=== PATIENT | female | born 1950 | race Caucasian/White ===

== ENCOUNTER → 2016-06-13 | Outpatient (CLI) | payer BC, OTHER ==
[~2016-06-13] MED LIST: /BACL20TA OR; /ESOM40CA OR; /FENT75PA TD; ADV250INH INH; ADVA230A INH; ALBU17IN INH; ALBU17IN2 IN; ALBUTEROL NEBS INH; AMBI10TA PO; AMLO5TAB2 PO; AMOX500T PO; ATIV0.5T3 PO; AUGM875T27 PO; AZIT500I PO; BACL10TA PO; BACL10TA2 PO; CEPACOL PO; CLARITIN D PO; DOXY100T16 PO; FLON0.05; FLUO40CA PO; FROV2.5T2 PO; FROVA PO; FURO20TA2 OR; GABA-283 PO; GABA300T OR; HYDR25TA7 PO; HYDR25TAB PO; HYDR50TA PO; KLOR1TAB65 PO; KLOR1TAB69 PO; KLOR8TAB OR; KLOR8TAB PO; LACT10SO8 OR; LEVA0.636 INH; LEVA31IN INH; LIDO1CRE2 EX; LISI-542 PO; MAGN64TASA PO; MONT10TA2 PO; MUCI600T34 PO; MUCINEX DM PO; NICO21DI4 TD; NITR2OI TOP; NORC7.5T PO; NORVASC PO; OXYC-208 PO; OXYC10TA12 OR; PANT40TA2 PO; PERC10TA17 PO; PERC5TAB8 OR; PERCOCET PO; POTA20TA2 OR; PRED10TA PO; PRED10TA2 PO; PRED1TAB32 PO; PRED5TA PO; PROC10TA PO; PROZ20CA OR; REST15CA PO; SENN8.6C PO; STRETAB4 PO; SUMA100T2 PO; VERA40TA2 PO; VITA500046 PO; ZOFR4TAB3 PO; ZOLP-189 PO; [UNRECOGNIZED DRUG - CODE] PO; oxygen
--- NOTE | 2016-06-13 22:06 | REP ---
Clinical: COPD. Comparison: 04/01/2015. Findings: The bilateral lung goff are well-aerated and without evidence for COPD. Chronic interstitial and postsurgical changes are appreciated with more pronounced findings at the right hilum as well as along the peripheral and basilar regions of the right lower lobe. No acute focal consolidation or mass lesion. No pleural effusion/reaction or pneumothorax. Mediastinum demonstrates stable atherosclerotic changes to the thoracic aorta and coronary arteries without cardiomegaly or pericardial effusion. No obvious adenopathy. Impression: Chronic-appearing postsurgical changes primarily noted in the right hilum and peripheral basilar regions of the right lower lobe similar to prior examination. No evidence for COPD, acute significant consolidation or mass lesion at the Signed by Sean Reese MD 06/13/2016 09:58 P
== END ==
LOC: M RAD 13:58
PROVIDERS: ATTEND Internal Medicine Pulmonary Disease
DX: J44.9 Chronic obstructive pulmonary disease, unspecified (principal)

== ENCOUNTER → 2016-08-17 | Outpatient (REF) | payer MEDICARE, OTHER, BC ==
[~2016-08-17] MED LIST changes: +KLOR1CAP PO
== END ==
LOC: M LAB REF 16:18
PROVIDERS: ATTEND Nurse Practitioner Women's Health
DX: R39.15 Urgency of urination (principal); R35.0 Frequency of micturition

== ENCOUNTER → 2016-08-22 | Outpatient (CLI) | payer MEDICARE, BC, OTHER ==
[~2016-08-22] MED LIST changes: -KLOR1CAP PO
--- NOTE | 2016-08-22 14:32 | REP ---
Clinical: Postmenopausal bleeding. Technique: Transabdominal pelvic ultrasound followed by transvaginal examination for better evaluation of the endometrium and adnexa. Findings: Bladder is normal and measures 12.7 x 7.0 x 9.5 cm. Heterogeneous anteverted uterus measures 4.9 x 3.0 x 2.7 cm. Endometrial complex is mildly thickened to 6.3 mm. However, no discrete uterine or endometrial abnormalities appreciated. Ovaries are not visualized. No pelvic fluid or obvious adnexal mass lesion. Impression: 1. Minimally thickened endometrial complex without obvious uterine or endometrial abnormality identified. 2. Ovaries not visualized. 3. No pelvic fluid or adnexal mass lesion appreciated. Signed by Sean Reese MD 08/22/2016 02:23 P
--- NOTE | 2016-08-22 14:40 | REPMRS ---
Patient History The patient states she had a clinical breast exam in July 2016. Digital Mammo Screening Bilat: August 22, 2016 - Exam #: [id number] Bilateral CC and MLO view(s) were taken. Technologist: Camelia Palmer, Technologist Prior study comparison: September 05, 2011, digital mammo diagnostic bilateral performed at [facility]. August 31, 2010, mammogram performed at [facility]. FINDINGS: There are scattered fibroglandular densities. There has been no change in the appearance of the mammogram from the prior studies. There is a mild amount of residual fibroglandular tissue which is fairly symmetric. There is no interval development of dominant mass, architectural distortion, or clustered microcalcification suggestive of malignancy. Scattered lymph nodes are seen in the bilateral axilla. There are scattered, small, benign calcifications of doubtful clinical significance. There are benign arterial calcifications noted. No significant changes when compared with prior studies. ASSESSMENT: BI-RADS/ACR category 2 mammogram. Benign finding(s). Recommendation Routine screening mammogram in 1 year (for women over age 40). This mammogram was interpreted with the aid of an FDA-approved computer-aided dectection system. A. Negative x-ray reports should not delay biopsy if a dominant or clinically suspicious mass is present. B. Four to eight percent of cancers are not identified by mammography. C. Adenosis and dense breast may obscure an underlying neoplasm. Electronically Signed By: Jaswinder Shah MD 08/22/16 [id number]
== END ==
LOC: M RAD 13:11
PROVIDERS: ATTEND Nurse Practitioner Women's Health
DX: N95.0 Postmenopausal bleeding (principal); Z12.31 Encounter for screening mammogram for malignant neoplasm of breast
CPT/HCPCS: 76830; 76856; G0202

== ENCOUNTER → 2016-08-30 | Outpatient (REF) | payer MEDICARE, OTHER ==
[~2016-08-30] MED LIST changes: +KLOR1CAP PO
[2016-08-30 19:13] LABS: PERCENT SATURATION 26.9 % (13.2-37.4)
[2016-08-30 20:33] LABS: MICROSCOPIC EXAM PERFORMED; RBC, URINE 0-1 /hpf (0-3); SQUAMOUS EPITHELIAL CELL URINE SMALL AMOUNT /hpf (SMALL AMT)
[2016-08-30 20:34] LABS: HYALINE CAST, URINE 0-1 /lpf (0-1); TRANSITIONAL EPI CELLS, URINE SMALL AMOUNT /hpf
[2016-08-30 20:35] LABS: BACTERIA, URINE NONE SEEN
== END ==
LOC: M LAB REF 17:30
PROVIDERS: ATTEND Internal Medicine Nephrology
DX: R31.9 Hematuria, unspecified (principal); D64.9 Anemia, unspecified

== ENCOUNTER → 2016-09-07 | Outpatient (CLI) | payer MEDICARE, BC, OTHER ==
--- NOTE | 2016-09-07 13:46 | REP ---
BLADDER ULTRASOUND: Real-time sonographic evaluation of the urinary bladder is performed. The bladder measures 9.2 x 9.2 x 6.1 cm for a total volume of 334 mL. There is no bladder mass or calculus. Postvoid residual is 37 mL, which is 11% of the original volume. IMPRESSION: Essentially unremarkable bladder ultrasound. Signed by Jose Morales MD 09/07/2016 02:29 P
== END ==
LOC: M RAD 10:07
PROVIDERS: ATTEND Internal Medicine Nephrology
DX: N18.2 Chronic kidney disease, stage 2 (mild) (principal)

== ENCOUNTER → 2016-09-15 | Outpatient (CLI) | payer MEDICARE, BC, OTHER ==
[2016-09-15 15:22] LABS: INR 0.82
[2016-09-15 15:24] LABS: MEAN CORPUSCULAR HEMOGLOBIN 30.5 pg (27.0-33.0); MEAN CORPUSCULAR HGB CONC 33.2 g/dl (32.0-36.5); WHITE BLOOD COUNT 11.2 K/mm3 (4.0-10.0)
--- NOTE | 2016-09-15 15:35 | REP ---
Chest two views HISTORY: Hypertension Comparison: 04/01/2015 There is elevation of the right hemidiaphragm. The lungs are clear. The heart is normal in size. The pulmonary vasculature is normal in appearance. The bony structure is intact. IMPRESSION: No acute disease. Signed by Bo Walsh MD 09/15/2016 03:26 P
[2016-09-15 15:50] LABS: ALBUMIN 3.9 GM/DL (3.2-5.2); ALBUMIN/GLOBULIN RATIO 1.11 (1.00-1.93); ALKALINE PHOSPHATASE 95 U/L (45-117); ALT/SGPT 28 U/L (12-78); ANION GAP 7 MEQ/L (8-16); AST/SGOT 15 U/L (15-37); BILIRUBIN,TOTAL 0.2 MG/DL (0.2-1.0); BLOOD UREA NITROGEN 11 MG/DL (7-18); CALCIUM LEVEL 9.3 MG/DL (8.8-10.2); CARBON DIOXIDE LEVEL 33 MEQ/L (21-32); CHLORIDE LEVEL 98 MEQ/L (98-107); CHOLESTEROL LEVEL 248 MG/DL (<200); CREATININE FOR GFR 0.69 MG/DL (0.55-1.02); GLOMERULAR FILTRATION RATE > 60.0 (>45); GLUCOSE, FASTING 91 MG/DL (80-110); POTASSIUM SERUM 3.7 MEQ/L (3.5-5.1); SODIUM LEVEL 138 MEQ/L (136-145); TOTAL PROTEIN 7.4 GM/DL (6.4-8.2); TRIGLYCERIDES LEVEL 157 MG/DL (<150)
--- NOTE | 2016-09-15 18:55 | ECGEPIP ---
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
== END ==
LOC: M LAB 14:56
PROVIDERS: ATTEND Family Medicine
DX: Z01.818 Encounter for other preprocedural examination (principal); I10 Essential (primary) hypertension; R73.01 Impaired fasting glucose; R79.1 Abnormal coagulation profile

== ENCOUNTER 2016-09-22 14:39 | Inpatient (IN) | payer MEDICARE, BC, OTHER ==
[~2016-09-22] VITALS: Ht 157.5 cm; Wt 108.2 kg
[2016-09-22] MEDS ORDERED: PRED10TA PO ×2 (14:48→19:24)
[2016-09-22] MEDS ORDERED: OXYGEN (14:48)
[2016-09-22] MEDS ORDERED: IPRATROPIUM 0.5MG/ALBUTEROL 2.5MG INH SOL UD 3ML (DUONEB)(J7620) NEB ONE (16:30)
[2016-09-22] MEDS ORDERED: methylPREDNISolone INJ 125 MG/2 ML VIAL (J2930) IV ONE (16:30)
[2016-09-22 17:27] LABS: BASO # 0.1 K/mm3 (0.0-0.2); BASO % 0.4 % (0.0-1.0); EOS % 0.2 % (0.0-3.0); LARGE UNSTAINED CELL # 0.1 K/mm3 (0.0-0.4); LARGE UNSTAINED CELL % 0.8 % (0.0-4.0); LYMPH # 1.4 K/mm3 (1.5-4.5); LYMPH % 7.6 % (24.0-44.0); MEAN CORPUSCULAR HEMOGLOBIN 30.6 pg (27.0-33.0); MEAN CORPUSCULAR HGB CONC 32.9 g/dl (32.0-36.5); MEAN CORPUSCULAR VOLUME 93.2 fl (80.0-96.0); MONO # 0.7 K/mm3 (0.0-0.8); MONO % 3.5 % (0.0-5.0); NEUTROPHILS # 16.5 K/mm3 (1.8-7.7); NEUTROPHILS % 87.6 % (36.0-66.0); PLATELET COUNT, AUTOMATED 381 k/mm3 (150-450); WHITE BLOOD COUNT 18.8 K/mm3 (4.0-10.0)
[2016-09-22 17:33] LABS: ANION GAP 14 MEQ/L (8-16); BLOOD UREA NITROGEN 34 MG/DL (7-18); CALCIUM LEVEL 8.8 MG/DL (8.8-10.2); CARBON DIOXIDE LEVEL 24 MEQ/L (21-32); CHLORIDE LEVEL 96 MEQ/L (98-107); CREATININE FOR GFR 2.42 MG/DL (0.55-1.02); GLOMERULAR FILTRATION RATE 21.4 (>45); GLUCOSE, FASTING 99 MG/DL (80-110); POTASSIUM SERUM 4.6 MEQ/L (3.5-5.1); SODIUM LEVEL 134 MEQ/L (136-145)
--- NOTE | 2016-09-22 18:02 | ED PDOC ---
Post-Departure Follow-Up AT THIS TIME, WENT TO PT'S ROOM, PT SITTING UPRIGHT ON EXAM BED, DIAPHORETIC AND SPOUSE STATED SHE WAS SLEEPING. PT USING ACCESSORY MUSCLES ON 2L NASAL CANNULA. ADVISED ELEVATED KIDNEY FUNCTIONS AND PT SEES DR. DIOP. CHECKED MEDITECH AND PT HAD NORMAL RENAL FUNCTIONS ON 09/15/16. SIGNIFICANTLY ELEVATED TODAY. SAWYER PELAEZ PA-C Sep 22, 2016 18:02
[2016-09-22] MEDS ORDERED: ADVA230A INH (19:24)
[2016-09-22] MEDS ORDERED: PERC10TA17 PO (19:24)
[2016-09-22 19:40] LABS: ABG BASE EXCESS -5.2 (-2.0-2.0); ABG HCO3 22.2 MEQ/L (22.0-26.0); ABG PARTIAL PRESSURE CO2 51.1 mmHg (35.0-45.0); ABG PARTIAL PRESSURE O2 73.3 mmHg (75.0-100.0); ABG STANDARD HCO3 20.1 MEQ/L (22.0-26.0); ABG TOTAL CO2 23.7 MEQ/L (23.0-31.0); ABG pH (ARTERIAL) 7.255 UNITS (7.350-7.450)
[2016-09-22] MEDS ORDERED: PANT40TA2 PO (20:07)
[2016-09-22 20:26] LABS: ALBUMIN 4.3 GM/DL (3.2-5.2); ALKALINE PHOSPHATASE 95 U/L (45-117); ALT/SGPT 30 U/L (12-78); AST/SGOT 22 U/L (15-37); BILIRUBIN,DIRECT < 0.1 MG/DL (0.0-0.2); BILIRUBIN,TOTAL 0.4 MG/DL (0.2-1.0); TOTAL PROTEIN 7.6 GM/DL (6.4-8.2)
[2016-09-22] MEDS: guaiFENesin ER 600 MG TAB PO SCH (21:00)
[2016-09-22] MEDS: GABAPENTIN 400 MG CAP PO SCH (21:00)
[2016-09-22] MEDS ORDERED: SODIUM CHLORIDE 0.9% 1000 ML IV ONE ×2 (21:15→21:30)
[2016-09-22] MEDS ORDERED: IPRATROPIUM 0.5MG/ALBUTEROL 2.5MG INH SOL UD 3ML (DUONEB)(J7620) NEB PRN (21:15)
[2016-09-22] MEDS ORDERED: ALBUTEROL SULFATE 2.5 MG/0.5 ML INH NEB SOLN INH PRN (21:30)
[2016-09-22] MEDS ORDERED: NS 500 ML IV ONE (21:30)
[2016-09-22] MEDS ORDERED: methylPREDNISolone INJ 125 MG/2 ML VIAL (J2930) IV SCH (21:30)
[2016-09-22] MEDS ORDERED: NS 1,000 ML IV SCH (21:30)
--- NOTE | 2016-09-22 22:10 | HPEPDOC ---
General Date of Admission Attending Physician: MARGUERITE SPANGLER MD Chief Complaint The patient is a 66-year-old female admitted with a reason for visit of SOB. Source: Patient Exam Limitations: No limitations Timing/Duration: Day(s) (2) Severity: Severe History of Present Illness Leatha Zimmerman is a 66 year old female with a history of lung cancer, COPD, HTN, PNA, nocturnal oxygen use at home, rib fractures and spinal fusions who presents with 2 days of shortness of breath. She is accompanied by her Freddie and he was present to aid in taking the history. The shortness of breath has been increasing in severity and that is why she had to come to the ER. She denies any chest pain or palpitations. Her states that she has been sick for about 2 weeks, and she has become confused at times. She coughs up yellow sputum every once in a while. She also complains of chronic left flank pain that has been increasing in severity over the past couple weeks. The pain is where she previously broke her ribs, she believes that this may be diaphragm pain. She also states that she has been having a hard time urinating with a feeling of needing to go but she can't. She denies any blood or pain when she urinates. She has been having fevers and night sweats for a long time now which other providers have attributed to menopause. She denies chills, nausea, and vomiting, but states that she has intermittent bouts of diarrhea after about 3 days of constipation. 2 weeks ago, she noticed vaginal spotting and has an appointment here at [facility] on Oct 04 2016 to investigate this matter further. She is laying down in moderate distress and sweaty, but alert and oriented. Home Medications Scheduled (Klor-Con Sprinkle) 8 Meq Cap, 16 MEQ PO DAILY, (Reported) Amlodipine Besylate (Amlodipine Besylate) 5 Mg Tab, 5 MG PO DAILY, (Reported) Baclofen (Baclofen) 10 Mg Tab, 10 MG PO TID, (Reported) Cholecalciferol (Vitamin D) 5,000 Unit Tab, 5,000 UNIT PO DAILY, (Reported) Fluoxetine Hcl (Fluoxetine HCl) 40 Mg Cap, 40 MG PO DAILY, (Reported) Gabapentin (Gabapentin) 400 Mg Cap, 400 MG PO TID, (Reported) Guaifenesin (Mucinex) 600 Mg Tab, 600 MG PO BID, (Reported) Hydrochlorothiazide (Hydrochlorothiazide) 25 Mg Tab, 25 MG PO DAILY, (Reported) Lisinopril (Lisinopril) 5 Mg Tab, 5 MG PO QHS, (Reported) Pantoprazole Sodium (Pantoprazole Sodium) 40 Mg Tab, 40 MG PO DAILY, (Reported) Salmeterol/Fluticasone (Advair Hfa 230-21 Mcg/Act) 1 Aer Aer, 1 PUFF INH BID, ( Reported) Zolpidem Tartrate (Ambien) 10 Mg Tab, 10 MG PO QHS, (Reported) Scheduled PRN Albuterol Sulfate (Ventolin Hfa) 200 Puff/8 Gm Aers, 2 PUFF INH Q4H PRN for SHORTNESS OF BREATH, (Reported) Oxycodone/Acetaminophen (Percocet 10-325 mg) 1 Tab Tab, 1 TAB PO TID PRN for PAIN, (Reported) Prednisone (Prednisone) 10 Mg Tab, 10 MG PO DAILYPRN PRN for SHORTNESS OF BREATH , (Reported) Sumatriptan Succinate (Sumatriptan Succinate) 100 Mg Tab, 100 MG PO PRN PRN for MIGRAINE, (Reported) Allergies Coded Allergies: Benzodiazepines (Verified Adverse Reaction, Intermediate, DELIRIUM, ) Past Medical History Medical History Lung cancer status post resection 2009 HTN Depression COPD Seasonal allergies Migraines PNA Closed rib fractures Chiari malformation (1) Surgical History Spinal fusion Right upper lobectomy Carpal tunnel repair Cholecystectomy Disc surgery Chiari malformation decompression Family History Mother of CHF Father of heart and liver disease Social History * Smoker: former Smoker (60 pack years) Alcohol: occationally Drugs: denies Patient lives with Review of Symptoms Constitutional: Reports: Fever, Night Sweats, Fatigue, Denies: Chills Eyes: Reports: Vision change (chronic changes) ENT: Reports: Head Aches Skin: Denies: Rash, Lesions Pulmonary: Reports: Dyspnea, Cough Cardiovascular: Denies: Chest Pain, Palpitations, Edema Gastrointestinal: Reports: Abdominal Pain (Chronic diaphragm pain on right), Diarrhea, Constipation, Denies: Nausea, Vomiting Genitourinary: Reports: Dysuria Musculoskeletal: Reports: Neck Pain, Back Pain Neurological: Denies: Weakness, Numbness, Change in speech Psych: Reports: Mood Normal Physical Examination General Exam: Positive: Alert, Cooperative, Moderate Distress Eye Exam: Positive: PERRLA, EOMI ENT Exam: Positive: Atraumatic Chest Exam: Positive: Wheezing (Bilateral upper lobes) Heart Exam: Positive: Rate Normal, Negative: Gallops, Murmurs, Rubs Abdomen Exam: Positive: Normal bowel sounds, Negative: Tenderness (but she does feel uncomfortable pressure in the lower abdomen upon palpation.) Extremity Exam: Negative: Cyanosis, Edema, Tenderness Skin Exam: Positive: Other skin issue (diaphoretic) Neuro Exam: Positive: Normal Speech Psych Exam: Positive: Mental status NL, Anxiety Vital Signs Vital Signs Date Time Temp Pulse Resp B/P (MAP) Pulse Ox O2 Delivery O2 Flow Rate FiO2 09/22/16 19:21 93 Nasal Cannula 1.0 09/22/16 18:27 96.4 99 17 130/75 (93) Laboratory Data Labs 24H Laboratory Tests 2 09/22/16 16:50: White Blood Count 18.8H, Red Blood Count 3.71L, Hemoglobin 11.3L, Hematocrit 34.5L, Mean Corpuscular Volume 93.2, Mean Corpuscular Hemoglobin 30.6, Mean Corpuscular Hemoglobin Concent 32.9, Red Cell Distribution Width 13.0, Platelet Count 381, Neutrophils (%) (Auto) 87.6H, Lymphocytes (%) (Auto) 7.6L, Monocytes (%) (Auto) 3.5, Eosinophils (%) (Auto) 0.2, Basophils (%) (Auto) 0.4, Neutrophils # (Auto) 16.5H, Lymphocytes # (Auto) 1.4L, Monocytes # (Auto) 0.7, Eosinophils # (Auto) 0.0, Basophils # (Auto) 0.1, Large Unclassified Cells % 0.8 , Large Unclassified Cells # 0.1, D-Dimer, Quantitative < 270.0, Anion Gap 14, Glomerular Filtration Rate 21.4L, Blood Urea Nitrogen 34H, Creatinine 2.42H, Sodium Level 134L, Potassium Level 4.6, Chloride Level 96L, Carbon Dioxide Level 24, Calcium Level 8.8, Total Creatine Kinase 213H, Aspartate Amino Transf (AST/SGOT) 22, Alanine Aminotransferase (ALT/SGPT) 30, Alkaline Phosphatase 95, Total Bilirubin 0.4, Direct Bilirubin < 0.1, Creatine Kinase MB 4.3H, Creatine Kinase MB Relative Index 2.01, Troponin I < 0.02, B-Type Natriuretic Peptide 104H, Total Protein 7.6, Albumin 4.3, Albumin/Globulin Ratio 1.30 09/22/16 19:20: Blood Gas Bicarbonate Standard 20.1L, Arterial Blood pH 7.255L, Arterial Blood Partial Pressure CO2 51.1H, Arterial Blood Partial Pressure O2 73.3L, Arterial Blood Total CO2 23.7, Arterial Blood HCO3 22.2, Arterial Blood Base Excess -5.2L , Arterial Blood Oxygen Saturation 92.8L 09/22/16 19:34: Lactic Acid Level 4.0*H CBC/BMP Laboratory Tests 09/22/16 16:50 Red Blood Count 3.71 L, Mean Corpuscular Volume 93.2, Mean Corpuscular Hemoglobin 30.6, Mean Corpuscular Hemoglobin Concent 32.9, Red Cell Distribution Width 13.0, Neutrophils (%) (Auto) 87.6 H, Lymphocytes (%) (Auto) 7.6 L, Monocytes (%) (Auto) 3.5, Eosinophils (%) (Auto) 0.2, Basophils (%) (Auto ) 0.4, Neutrophils # (Auto) 16.5 H, Lymphocytes # (Auto) 1.4 L, Monocytes # ( Auto) 0.7, Eosinophils # (Auto) 0.0, Basophils # (Auto) 0.1, Calcium Level 8.8, Total Creatine Kinase 213 H Microbiology Microbiology 09/22/16 Blood Culture, Received Pending 09/22/16 Respiratory Virus Panel (PCR) ([facility]), Received Pending Problems (1) COPD exacerbation Onset Date: 04/08/2014 Status: Resolved Response to Treatment: Stable Problem Text: Given albuterol and steroids in the ER. Respiratory distress likely due to infection, respiratory panel ordered, empiric abx started, 500cc bolus NS ordered. Will start her on Non-invasive Positive Pressure Ventilation as she is both hypoxic and hypercapnic. (2) Acute respiratory failure with hypoxia and hypercapnia Status: Resolved (3) Leukocytosis Status: Acute Problem Text: Likely due to infection. Blood cultures, respiratory panel ordered. Started on rocephin and azithromycin prophylactically, renally dosed. (4) Lactic acidosis Status: Resolved Problem Text: Likely secondary to her increased work of breathing, will recheck follow-up lactic acidosis. (5) Acute kidney failure Status: Acute Problem Text: Stopped her lisinopril and HCTZ. Fitzpatrick catheter placed given her history of urinary retention. Will monitor renal function, may merit further imaging/investigation if she is not improving. (6) Abnormal vaginal bleeding Status: Acute Problem Text: Follow up outpatient at her previous appt on October 04. (7) History of lung cancer Problem Text: Status post lobectomy 2009. (8) Migraines Status: Chronic (9) HTN (hypertension) Status: Chronic (10) Depression (11) Chronic neck and back pain Status: Chronic Problem Text: She does take Percocet 10-325 at home TID, given her difficulty breathing, I will continue her on half dose for now. Plan / VTE VTE Prophylaxis Ordered?: Yes (TEDs & Sequentials) Plan Plan I have both independently examined this patient as well as reviewed the dictated note. I have discussed in detail with the resident the findings and plan of treatment as documented in the residents note. I will continue to follow the patient and offer further guidance to the patients care as necessary during this hospital stay. Continue Bipap tonight, wean as tolerated during day shift. HUA COE DO Sep 22, 2016 22:03 MARGUERITE SPANGLER MD Sep 24, 2016 20:21
[2016-09-22 22:59] VITALS: BP 156/102
--- NOTE | 2016-09-22 23:00 | REPUSA ---
CT of the chest without contrast Clinical statement: acute respiratory failure. Technique: Multiple axial CT images were obtained with 5 mm cuts through the chest without administra tion of contrast. No comparison is available. Findings: There is no thoracic lymphadenopathy. The visualized portions of the thyroid gland is unrem arkable. There are no pericardial or pleural effusions. The lungs are clear. Limited imaging of the u pper abdomen does not demonstrate any acute abnormalities. There are no suspicious osseous lesions. Impression: Unremarkable CT examination of the chest.
[2016-09-22 23:10] VITALS: BP 120/66
[2016-09-22] MEDS: NS 1,000 ML IV SCH (23:17)
[2016-09-22] MEDS: methylPREDNISolone INJ 125 MG/2 ML VIAL (J2930) IV SCH (23:23)
[2016-09-22] MEDS: AZITHROMYCIN INJ 500 MG, VIAL MATE ADAPTER 1 EACH in D5W 250 ML IV SCH (23:24)
[2016-09-22] MEDS: IPRATROPIUM 0.5MG/ALBUTEROL 2.5MG INH SOL UD 3ML (DUONEB)(J7620) NEB SCH (23:33)
[2016-09-23] VITALS (17 sets, daily range): BP systolic 85–164; BP diastolic 46–95; O2SAT 94
[2016-09-23] MEDS ORDERED: IPRATROPIUM 0.5MG/ALBUTEROL 2.5MG INH SOL UD 3ML (DUONEB)(J7620) NEB SCH
[2016-09-23 00:42] LABS: ABG HCO3 20.8 MEQ/L (22.0-26.0); ABG PARTIAL PRESSURE CO2 46.5 mmHg (35.0-45.0); ABG PARTIAL PRESSURE O2 133.6 mmHg (75.0-100.0); ABG STANDARD HCO3 19.5 MEQ/L (22.0-26.0); ABG TOTAL CO2 22.2 MEQ/L (23.0-31.0); ABG pH (ARTERIAL) 7.268 UNITS (7.350-7.450)
[2016-09-23] MEDS ORDERED: PERCOCET 5MG/325MG TAB PO ONE (01:00)
[2016-09-23] MEDS: cefTRIAXone SOD 2 GM in D5W MINI-BAG PLUS 50 ML IV SCH (01:30)
[2016-09-23] MEDS: IPRATROPIUM 0.5MG/ALBUTEROL 2.5MG INH SOL UD 3ML (DUONEB)(J7620) NEB SCH ×6 (03:09→23:44)
[2016-09-23 05:18] LABS: MEAN CORPUSCULAR HEMOGLOBIN 30.9 pg (27.0-33.0); MEAN CORPUSCULAR HGB CONC 33.3 g/dl (32.0-36.5); MEAN CORPUSCULAR VOLUME 92.8 fl (80.0-96.0); RED CELL DISTRIBUTION WIDTH 13.1 % (11.5-14.5)
--- NOTE | 2016-09-23 07:04 | REP ---
CHEST, TWO VIEWS: Two views of the chest are performed. Comparison 09/15/2016. There is mild bibasilar interstitial fibrosis. There is no acute infiltrate or pulmonary edema. The heart is not enlarged. The mediastinal silhouette is unchanged. Metallic plate and screws are seen in the lower cervical spine. IMPRESSION: No acute pulmonary disease. Stable chronic findings. Signed by Jose Morales MD 09/23/2016 04:33 P
[2016-09-23] MEDS: GABAPENTIN 400 MG CAP PO SCH ×3 (08:00→21:04)
[2016-09-23] MEDS: amLODIPine 5 MG TAB PO SCH (08:01)
[2016-09-23] MEDS: FLUoxetine 20 MG CAP PO SCH (08:02)
[2016-09-23] MEDS: guaiFENesin ER 600 MG TAB PO SCH ×2 (08:02→21:04)
[2016-09-23] MEDS: methylPREDNISolone INJ 125 MG/2 ML VIAL (J2930) IV SCH ×3 (08:02→23:13)
[2016-09-23] MEDS: PANTOPRAZOLE 40MG TAB (PROTONIX) PO SCH (08:04)
[2016-09-23] MEDS: NS 1,000 ML IV SCH ×2 (09:24→20:23)
[2016-09-23 11:48] LABS: ABG BASE EXCESS 2.9 (-2.0-2.0); ABG HCO3 26.9 MEQ/L (22.0-26.0); ABG PARTIAL PRESSURE CO2 38.8 mmHg (35.0-45.0); ABG pH (ARTERIAL) 7.458 UNITS (7.350-7.450)
--- NOTE | 2016-09-23 19:56 | IPNPDOC ---
Subjective Date Seen The patient was seen on 09/23/16. Subjective Chief Complaint/HPI The patient is a 66-year-old female admitted with a reason for visit of Respiratory Failure. Events since last encounter pt seen and examined was on bipap General: Reports: ROS Unobtainable Objective Physical Examination General Exam: Positive: Alert, Cooperative, Moderate Distress Eye Exam: Positive: PERRLA, EOMI ENT Exam: Positive: Atraumatic Chest Exam: Positive: Wheezing (Bilateral upper lobes) Heart Exam: Positive: Rate Normal, Negative: Gallops, Murmurs, Rubs Abdomen Exam: Positive: Normal bowel sounds, Negative: Tenderness (but she does feel uncomfortable pressure in the lower abdomen upon palpation.) Extremity Exam: Negative: Cyanosis, Edema, Tenderness Skin Exam: Positive: Other skin issue (diaphoretic) Neuro Exam: Positive: Normal Speech Psych Exam: Positive: Mental status NL, Anxiety Assessment /Plan Problems (1) COPD exacerbation Onset Date: 04/08/2014 Status: Acute Response to Treatment: Stable Problem Text: * Given albuterol and steroids in the ER. * Respiratory distress likely due to infection, * respiratory panel negative, * continue antibiotics, duonebs and steroids * sputum cultures pending (2) Acute respiratory failure with hypoxia and hypercapnia Status: Acute Problem Text: * abd repeated and it has improved * will d/c bipap * continue to monitor pt * pt is on oxygen at night at baseline, likely has sleep apnea but can't tolerate mask so she never has sleep study done (3) Leukocytosis Status: Acute Response to Treatment: Worse Problem Text: likely due to infection but worse due to steroids (4) Lactic acidosis Status: Resolved (5) Acute kidney failure Status: Acute Problem Text: Stopped her lisinopril and HCTZ. Fitzpatrick catheter placed given her history of urinary retention. Will monitor renal function, may merit further imaging/investigation if she is not improving. (6) Abnormal vaginal bleeding Status: Acute Problem Text: Follow up outpatient at her previous appt on October 04. (7) History of lung cancer Problem Text: Status post lobectomy 2009. (8) Migraines Status: Chronic (9) HTN (hypertension) Status: Chronic (10) Depression (11) Chronic neck and back pain Status: Chronic Problem Text: She does take Percocet 10-325 at home TID, given her difficulty breathing, I will continue her on half dose for now. Plan/VTE VTE Prophylaxis Ordered?: Yes (TEDs & Sequentials) Plan/Urinary Catheter Reason for insertion/continuin: Acute obstruct/retention VS, I&O, 24H, Fishbone Vital Signs/I&O Vital Signs Date Time Temp Pulse Resp B/P (MAP) Pulse Ox O2 Delivery O2 Flow Rate FiO2 09/23/16 18:00 110 18 133/95 (108) 97 Nasal Cannula 2.0 09/23/16 16:00 99.3 09/23/16 08:00 30 I&O- Last 24 Hours up to 6 AM 09/23/16 06:00 Intake Total 430 ml Output Total 1150 ml Balance -720 ml Laboratory Data 24H LABS Laboratory Tests 2 09/23/16 00:00: Lactic Acid Followup at 4 Hours 2.0 09/23/16 00:33: Blood Gas Bicarbonate Standard 19.5L, Arterial Blood pH 7.268L, Arterial Blood Partial Pressure CO2 46.5H, Arterial Blood Partial Pressure O2 133.6H, Arterial Blood Total CO2 22.2L, Arterial Blood HCO3 20.8L, Arterial Blood Base Excess - 6.0L, Arterial Blood Oxygen Saturation 98.5 09/23/16 11:38: Blood Gas Bicarbonate Standard 27.0H, Arterial Blood pH 7.458H, Arterial Blood Partial Pressure CO2 38.8, Arterial Blood Partial Pressure O2 69.0L, Arterial Blood Total CO2 28.0, Arterial Blood HCO3 26.9H, Arterial Blood Base Excess 2.9H , Arterial Blood Oxygen Saturation 94.3L 09/23/16 16:33: Urine Appearance CLEAR, Urine Color YELLOW, Urine pH 5.0, Urine Specific [place] 1.014, Urine Protein NEGATIVE, Urine Glucose (UA) NEGATIVE, Urine Ketones NEGATIVE, Urine Urobilinogen 0.2, Urine Bilirubin NEGATIVE, Urine Leukocyte Esterase TRACEH, Urine Blood NEGATIVE, Urine Nitrite NEGATIVE, Urine WBC (Auto) 4H, Urine RBC (Auto) 4H, Urine Hyaline Casts (Auto) 0, Urine Bacteria (Auto) 1+H, Urine Squamous Epithelial Cells 0, Urine Mucus (Auto) SMALL , Urine Sperm (Auto) CBC/BMP Laboratory Tests 09/23/16 04:51 Red Blood Count 3.34 L, Mean Corpuscular Volume 92.8, Mean Corpuscular Hemoglobin 30.9, Mean Corpuscular Hemoglobin Concent 33.3, Red Cell Distribution Width 13.1 Microbiology Microbiology 09/22/16 Blood Culture, Received Pending 09/22/16 Blood Culture, Received Pending 09/23/16 Gram Stain - Final, Resulted 09/23/16 Sputum Culture, Resulted Pending 09/22/16 Respiratory Virus Panel (PCR) ([facility]) - Final, Complete FLORINDA LUCIO DO Sep 23, 2016 19:56
[2016-09-23] MEDS: AZITHROMYCIN INJ 500 MG, VIAL MATE ADAPTER 1 EACH in D5W 250 ML IV SCH (23:13)
[2016-09-23] MEDS: PERCOCET 5MG/325MG TAB PO PRN (23:14)
[2016-09-24] VITALS: BP 111/53
[2016-09-24] MEDS: cefTRIAXone SOD 2 GM in D5W MINI-BAG PLUS 50 ML IV SCH (01:47)
[2016-09-24] MEDS: IPRATROPIUM 0.5MG/ALBUTEROL 2.5MG INH SOL UD 3ML (DUONEB)(J7620) NEB SCH ×6 (03:29→23:24)
[2016-09-24 04:00] VITALS: BP 118/52
[2016-09-24 04:37] LABS: MEAN CORPUSCULAR HEMOGLOBIN 29.7 pg (27.0-33.0); MEAN CORPUSCULAR HGB CONC 31.8 g/dl (32.0-36.5); MEAN CORPUSCULAR VOLUME 93.6 fl (80.0-96.0); RED CELL DISTRIBUTION WIDTH 13.4 % (11.5-14.5); WHITE BLOOD COUNT 22.8 K/mm3 (4.0-10.0)
[2016-09-24 05:08] LABS: ALBUMIN 3.1 GM/DL (3.2-5.2); ALBUMIN/GLOBULIN RATIO 0.91 (1.00-1.93); ALKALINE PHOSPHATASE 77 U/L (45-117); ALT/SGPT 26 U/L (12-78); ANION GAP 10 MEQ/L (8-16); AST/SGOT 20 U/L (15-37); BILIRUBIN,TOTAL 0.1 MG/DL (0.2-1.0); BLOOD UREA NITROGEN 19 MG/DL (7-18); CALCIUM LEVEL 8.1 MG/DL (8.8-10.2); CARBON DIOXIDE LEVEL 29 MEQ/L (21-32); CHLORIDE LEVEL 103 MEQ/L (98-107); CREATININE FOR GFR 0.82 MG/DL (0.55-1.02); GLUCOSE, FASTING 146 MG/DL (80-110); MAGNESIUM LEVEL 2.2 MG/DL (1.8-2.4); POTASSIUM SERUM 3.5 MEQ/L (3.5-5.1); SODIUM LEVEL 142 MEQ/L (136-145); TOTAL PROTEIN 6.5 GM/DL (6.4-8.2)
[2016-09-24 05:23] LABS: GLOMERULAR FILTRATION RATE > 60.0 (>45)
[2016-09-24 08:00] VITALS: BP 130/60
[2016-09-24] MEDS: methylPREDNISolone INJ 125 MG/2 ML VIAL (J2930) IV SCH ×3 (08:19→23:50)
[2016-09-24] MEDS: guaiFENesin ER 600 MG TAB PO SCH ×2 (08:20→20:45)
[2016-09-24] MEDS: amLODIPine 5 MG TAB PO SCH (08:20)
[2016-09-24] MEDS: PANTOPRAZOLE 40MG TAB (PROTONIX) PO SCH (08:20)
[2016-09-24] MEDS: FLUoxetine 20 MG CAP PO SCH (08:20)
[2016-09-24] MEDS: GABAPENTIN 400 MG CAP PO SCH ×3 (08:20→20:44)
--- NOTE | 2016-09-24 08:37 | ECGEPIP ---
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
--- NOTE | 2016-09-24 14:04 | IPNPDOC ---
Subjective Date Seen The patient was seen on 09/24/16. Subjective Chief Complaint/HPI The patient is a 66-year-old female admitted with a reason for visit of Respiratory Failure. Events since last encounter pt seen and examined, pt doing very well, no overnight events, no events on tele , no oxygen desaturation, she was up eating breakfast, no chest pain or shortness of breath Objective Physical Examination General Exam: Positive: Alert, Cooperative, Moderate Distress Eye Exam: Positive: PERRLA, EOMI ENT Exam: Positive: Atraumatic Chest Exam: Positive: Wheezing (Bilateral upper lobes) Heart Exam: Positive: Rate Normal, Negative: Gallops, Murmurs, Rubs Abdomen Exam: Positive: Normal bowel sounds, Negative: Tenderness (but she does feel uncomfortable pressure in the lower abdomen upon palpation.) Extremity Exam: Negative: Cyanosis, Edema, Tenderness Skin Exam: Positive: Other skin issue (diaphoretic) Neuro Exam: Positive: Normal Speech Psych Exam: Positive: Mental status NL, Anxiety Assessment /Plan Problems (1) COPD exacerbation Onset Date: 04/08/2014 Status: Resolved Response to Treatment: Stable Problem Text: * Given albuterol and steroids in the ER. * Respiratory distress likely due to infection, * respiratory panel negative, * continue antibiotics, duonebs and steroids * sputum cultures pending (2) Acute respiratory failure with hypoxia and hypercapnia Status: Resolved Problem Text: * currently on room air and only using oxygen at night * will monitor one more night in hospital on continuous pulse ox (3) Leukocytosis Status: Acute Response to Treatment: Improving Problem Text: likely due to infection but worse due to steroids (4) Lactic acidosis Status: Resolved (5) Acute kidney failure Status: Acute Problem Text: Stopped her lisinopril and HCTZ. Fitzpatrick catheter placed given her history of urinary retention. Will monitor renal function, may merit further imaging/investigation if she is not improving. (6) Abnormal vaginal bleeding Status: Acute Problem Text: Follow up outpatient at her previous appt on October 04. (7) History of lung cancer Problem Text: Status post lobectomy 2009. (8) Migraines Status: Chronic (9) HTN (hypertension) Status: Chronic (10) Depression (11) Chronic neck and back pain Status: Chronic Problem Text: She does take Percocet 10-325 at home TID, given her difficulty breathing, I will continue her on half dose for now. Plan/VTE VTE Prophylaxis Ordered?: Yes (TEDs & Sequentials) Plan/Urinary Catheter Reason for insertion/continuin: Acute obstruct/retention VS, I&O, 24H, Fishbone Vital Signs/I&O Vital Signs Date Time Temp Pulse Resp B/P (MAP) Pulse Ox O2 Delivery O2 Flow Rate FiO2 09/24/16 12:04 Room Air 09/24/16 08:00 98.9 97 22 130/60 (83) 99 09/24/16 04:00 2.0 09/23/16 08:00 30 I&O- Last 24 Hours up to 6 AM 09/24/16 06:00 Intake Total 3315 ml Output Total 2420 ml Balance 895 ml Laboratory Data 24H LABS Laboratory Tests 2 09/23/16 16:33: Urine Appearance CLEAR, Urine Color YELLOW, Urine pH 5.0, Urine Specific [place] 1.014, Urine Protein NEGATIVE, Urine Glucose (UA) NEGATIVE, Urine Ketones NEGATIVE, Urine Urobilinogen 0.2, Urine Bilirubin NEGATIVE, Urine Leukocyte Esterase TRACEH, Urine Blood NEGATIVE, Urine Nitrite NEGATIVE, Urine WBC (Auto) 4H, Urine RBC (Auto) 4H, Urine Hyaline Casts (Auto) 0, Urine Bacteria (Auto) 1+H, Urine Squamous Epithelial Cells 0, Urine Mucus (Auto) SMALL , Urine Sperm (Auto) 09/24/16 04:23: Anion Gap 10, Glomerular Filtration Rate > 60.0, Blood Urea Nitrogen 19H, Creatinine 0.82#, Sodium Level 142#, Potassium Level 3.5#, Chloride Level 103, Carbon Dioxide Level 29, Calcium Level 8.1L, Aspartate Amino Transf (AST/SGOT) 20, Alanine Aminotransferase (ALT/SGPT) 26, Alkaline Phosphatase 77, Total Bilirubin 0.1#L, Total Protein 6.5, Albumin 3.1#L, Magnesium Level 2.2, Albumin/ Globulin Ratio 0.91L CBC/BMP Laboratory Tests 09/24/16 04:23 Red Blood Count 3.25 L, Mean Corpuscular Volume 93.6, Mean Corpuscular Hemoglobin 29.7, Mean Corpuscular Hemoglobin Concent 31.8 L, Red Cell Distribution Width 13.4, Calcium Level 8.1 L, Aspartate Amino Transf (AST/SGOT) 20, Alanine Aminotransferase (ALT/SGPT) 26, Alkaline Phosphatase 77, Total Bilirubin 0.1 #L, Total Protein 6.5, Albumin 3.1 #L Microbiology Microbiology 09/22/16 Blood Culture - Preliminary, Resulted No growth after 24 hours . All specim... 09/22/16 Blood Culture - Preliminary, Resulted No growth after 24 hours . All specim... 09/23/16 Gram Stain - Final, Resulted 09/23/16 Sputum Culture, Resulted Pending 09/22/16 Respiratory Virus Panel (PCR) (STACIE) - Final, Complete FLORINDA LUCIO DO Sep 24, 2016 14:04
[2016-09-24 15:47] VITALS: BP 120/57
[2016-09-24] MEDS: PERCOCET 5MG/325MG TAB PO PRN (20:45)
[2016-09-24 22:00] VITALS: BP 142/69
[2016-09-24] MEDS: AZITHROMYCIN INJ 500 MG, VIAL MATE ADAPTER 1 EACH in D5W 250 ML IV SCH (23:49)
[2016-09-25] MEDS: cefTRIAXone SOD 2 GM in D5W MINI-BAG PLUS 50 ML IV SCH (01:59)
[2016-09-25] MEDS: IPRATROPIUM 0.5MG/ALBUTEROL 2.5MG INH SOL UD 3ML (DUONEB)(J7620) NEB SCH ×3 (02:30→12:22)
[2016-09-25] MEDS ORDERED: PERCOCET 5MG/325MG TAB PO ONE (02:45)
[2016-09-25 06:00] VITALS: BP 138/76
[2016-09-25 06:50] LABS: MEAN CORPUSCULAR HEMOGLOBIN 29.7 pg (27.0-33.0); MEAN CORPUSCULAR HGB CONC 31.7 g/dl (32.0-36.5); MEAN CORPUSCULAR VOLUME 93.7 fl (80.0-96.0); RED CELL DISTRIBUTION WIDTH 13.5 % (11.5-14.5); WHITE BLOOD COUNT 20.8 K/mm3 (4.0-10.0)
[2016-09-25 07:02] LABS: ALBUMIN 3.2 GM/DL (3.2-5.2); ALBUMIN/GLOBULIN RATIO 0.82 (1.00-1.93); ALKALINE PHOSPHATASE 80 U/L (45-117); ALT/SGPT 26 U/L (12-78); ANION GAP 9 MEQ/L (8-16); AST/SGOT 19 U/L (15-37); BILIRUBIN,TOTAL < 0.1 MG/DL (0.2-1.0); BLOOD UREA NITROGEN 14 MG/DL (7-18); CALCIUM LEVEL 8.8 MG/DL (8.8-10.2); CARBON DIOXIDE LEVEL 26 MEQ/L (21-32); CHLORIDE LEVEL 103 MEQ/L (98-107); CREATININE FOR GFR 0.78 MG/DL (0.55-1.02); GLOMERULAR FILTRATION RATE > 60.0 (>45); GLUCOSE, FASTING 139 MG/DL (80-110); POTASSIUM SERUM 3.8 MEQ/L (3.5-5.1); SODIUM LEVEL 138 MEQ/L (136-145); TOTAL PROTEIN 7.1 GM/DL (6.4-8.2)
[2016-09-25] MEDS: methylPREDNISolone INJ 125 MG/2 ML VIAL (J2930) IV SCH (08:00)
[2016-09-25] MEDS: GABAPENTIN 400 MG CAP PO SCH (08:13)
[2016-09-25] MEDS: FLUoxetine 20 MG CAP PO SCH (08:13)
[2016-09-25 08:14] VITALS: BP 138/76
[2016-09-25] MEDS: guaiFENesin ER 600 MG TAB PO SCH (08:14)
[2016-09-25] MEDS: amLODIPine 5 MG TAB PO SCH (08:14)
[2016-09-25] MEDS: PANTOPRAZOLE 40MG TAB (PROTONIX) PO SCH (08:14)
[2016-09-25] MEDS ORDERED: methylPREDNISolone 4 MG TAB PO SCH (09:00)
[2016-09-25] MEDS ORDERED: AZIT25TA PO ×2 (13:19→13:28)
[2016-09-25] MEDS ORDERED: ALBU17IN INH (13:19)
[2016-09-25] MEDS ORDERED: PERCOCET PO (13:19)
[2016-09-25] MEDS ORDERED: MEDR4PAK PO (13:19)
--- NOTE | 2016-09-25 14:38 | DSES ---
DATE OF ADMISSION: 09/22/2016 DATE OF DISCHARGE: REASON FOR ADMISSION: Respiratory failure. FINAL DIAGNOSES: 1. Respiratory failure requiring BiPAP for a short period of time. 2. Hypercapnic respiratory failure. 3. Chronic obstructive pulmonary disease (COPD) exacerbation. 4. Leukocytosis. 5. Lactic acidosis, which has resolved. 6. Acute kidney injury. 7. Abnormal vaginal bleeding. 8. History of lung cancer. 9. Migraine headaches. 10. Hypertension. 11. Chronic neck and back pain. 12. History of depression. PRIMARY CARE PROVIDER: Dr. Sunil Gamboa. HISTORY OF PRESENT ILLNESS: The patient is a 66-year-old female with past medical history significant for COPD, hypertension, nocturnal oxygen use at home, history of rib fracture and chronic pain who presented to the emergency room accompanied by her . The patient was short of breath, increasing in severity, and this is why she presented to the emergency room. She denied any chest pain or palpitations. The patient's stated that she has been sick for the last 2 weeks. She would become confused at times. She would cough up yellow sputum every once in a while. She complained of chronic left flank pain increasing in severity over the past couple of weeks. She stated she previously broke her ribs and has been having pain ever since. The patient states she has been having difficulty with urination. She had noted pain and blood with urination. The patient also had been having some vaginal bleed with an upcoming appointment with her OB-DICE TABLE OPERATOR. She was initially alert and oriented, but sweaty and distressed. She was admitted under the hospitalist service. HOSPITAL COURSE: Later on that night, the patient started to become increasingly short of breath requiring the use of BiPAP. She had an ABG that showed hypercapnic respiratory failure with a pCO2 of 51 and pH of 7.255. She was found to also be hypoxic with a pO2 of 73.3. She was started on BiPAP at the time and left on it until morning. Repeat ABG was done and showed a pH of 7.45, pCO2 of 38.8, and pO2 of 69. Urinalysis was done and it was negative so no culture and sensitivity were done. Sputum culture showed only normal mylene, no acute findings. The patient initially had an elevated lactic acidosis which had resolved. She was afebrile the entire hospitalization. She did have a leukocytosis, but it was likely secondary to steroid use. The patient has been chronically on steroid at home and then she received a dose of Solu-Medrol 125 mg in the emergency room and she was continued on Solu-Medrol while she was in the hospital. No other abnormal findings. The patient had an elevated creatinine on admission which had resolved by the following day. The patient's medications for pain were decreased by half and her Ambien was discontinued since she was thought to have respiratory failure secondary to increased sedation from pain and sleep medications. She was instructed that when she returns home she would continue to take half of her home medications. She stated she does not have much left and she was due for a renewal when she presented to the hospital. Her I-STOP account was checked. She last had a prescription for her narcotics on 08/26/2016 so she would have three more days worth of medications when she goes home, but she was given 10 pills of the new prescription at a lower dose and she was instructed to follow up with her primary care provider. Her Ambien was also discontinued on her discharge medications. DISCHARGE INSTRUCTIONS: The patient is to follow up with Dr. Gamboa in 1 week. Diet regular. Activities as tolerated. DISCHARGE MEDICATIONS (included) - azithromycin 500 mg for three more days - Medrol Dosepak times one, use as directed - oxycodone/acetaminophen 5/325, the patient was given 10 pills, maximum daily dose of 3 - Ventolin HFA 2 puffs every 4 hours were renewed - amlodipine 5 mg by mouth daily - baclofen 10 mg by mouth three times a day - vitamin D 5000 units daily - fluoxetine 40 mg daily - gabapentin 400 mg by mouth three times a day - Mucinex 600 mg by mouth twice a day - HCTZ 25 mg by mouth daily - potassium 60 mEq by mouth daily - lisinopril 5 mg by mouth at bedtime - pantoprazole 40 mg daily - Advair HFA 1 puff inhaled twice a day - sumatriptan 100 mg by mouth as needed migraines Her prednisone, Ambien and oxycodone/acetaminophen 10/325 were all discontinued. Patient's I-STOP # is [id number]. The patient's discharge condition was stable.
[2016-09-25] MEDS ORDERED: AZITHROMYCIN 250 MG TAB PO SCH (21:00)
== END 2016-09-25 14:25 | disposition home or self-care (01) | DRG 189 ==
LOC: M ED 16:23 → M ED INP 21:19 → M ICU 22:45 → M MS5PR 09-24 11:20
PROVIDERS: ADMIT Internal Medicine; ATTEND Internal Medicine
PROC: 5A09458 Assistance with Respiratory Ventilation, 24-96 Consecutive Hours, Intermittent Positive Airway Pressure (ICD-10-PCS; principal; 2016-09-22)
DX: J96.02 Acute respiratory failure with hypercapnia (principal); N17.9 Acute kidney failure, unspecified; J44.1 Chronic obstructive pulmonary disease with (acute) exacerbation; E87.2 Acidosis; J96.01 Acute respiratory failure with hypoxia; I10 Essential (primary) hypertension; G43.909 Migraine, unspecified, not intractable, without status migrainosus; Z85.118 Personal history of other malignant neoplasm of bronchus and lung; Z79.899 Other long term (current) drug therapy; F32.9 Major depressive disorder, single episode, unspecified; M54.2 Cervicalgia; N93.9 Abnormal uterine and vaginal bleeding, unspecified; Z79.52 Long term (current) use of systemic steroids; Z88.8 Allergy status to other drugs, medicaments and biological substances; Z90.2 Acquired absence of lung [part of]; Z90.49 Acquired absence of other specified parts of digestive tract; Z82.49 Family history of ischemic heart disease and other diseases of the circulatory system; Z87.891 Personal history of nicotine dependence

== ENCOUNTER 2016-12-27 09:40 | Day surgery (SDC) | payer MEDICARE, BC, OTHER ==
[~2016-12-27] VITALS: Ht 157.5 cm; Wt 108.9 kg
[~2016-12-27 09:40] MED LIST changes: +AZIT250T8 PO; -BACL10TA PO; +BACL1TAB8 PO; +MEDR4PAK PO; +MUCI600T37 PO; -NORC7.5T PO; +NORC7.5T35 PO; +OXYGEN; -PERC10TA17 PO; +PERC10TA26 PO
[2016-12-27] MEDS ORDERED: LR 1,000 ML IV SCH ×3 (10:00→14:15)
[2016-12-27] MEDS ORDERED: LR 1,000 ML IV ONE (10:00)
[2016-12-27] MEDS ORDERED: MORPHINE 10 MG/ML 1ML VIAL As Ordered ONE (12:21)
[2016-12-27] MEDS ORDERED: MIDAZOLAM INJ 2 MG/2 ML VIAL (J2250) As Ordered ONE (12:21)
[2016-12-27] MEDS ORDERED: LIDOCAINE 2% INJ 100 MG/5 ML SDV (FOR ANES.) As Ordered ONE (12:21)
[2016-12-27] MEDS ORDERED: PROPOFOL 200 MG/20 ML VIAL As Ordered ONE ×2 (12:21→12:47)
[2016-12-27] MEDS ORDERED: PHENYLephrine HCL 500 MCG/5 ML (100MCG/ML) SYRINGE (J2370) As Ordered ONE (12:28)
[2016-12-27] MEDS ORDERED: ONDANSETRON 4MG/2ML VIAL (J2405) As Ordered ONE (12:36)
[2016-12-27] MEDS ORDERED: KETOROLAC 60 MG/2 ML VIAL (J1885) As Ordered ONE (12:36)
[2016-12-27] MEDS ORDERED: dexameTHASONE 4 MG/ML 1ML VIAL (J1100) As Ordered ONE (12:36)
[2016-12-27] MEDS ORDERED: PERCOCET 5MG/325MG TAB PO PRN (14:15)
[2016-12-27] MEDS ORDERED: fentaNYL 100 MCG/2 ML INJECTION (J3010) IV PRN (14:15)
[2016-12-27] MEDS ORDERED: IBUPROFEN 600 MG TAB PO PRN (14:15)
[2016-12-27] MEDS ORDERED: METOCLOPRAMIDE INJ 10MG/2ML VIAL (J2765) IV PRN (14:15)
[2016-12-27] MEDS ORDERED: MEPERIDINE INJ 25 MG/ML VIAL (J2175) IV PRN (14:15)
[2016-12-27] MEDS ORDERED: ONDANSETRON 4MG/2ML VIAL (J2405) IV PRN (14:15)
[2016-12-27 15:55] VITALS: BP 158/84
--- NOTE | 2016-12-28 10:10 | RO ---
DATE OF PROCEDURE: 12/27/2016 PREPROCEDURE DIAGNOSIS: Postmenopausal bleeding, thickened endometrium by ultrasound. POSTPROCEDURE DIAGNOSIS: Postmenopausal bleeding, thickened endometrium by ultrasound. Intrauterine synechiae. PROCEDURE: Dilation and curettage, hysteroscopy, MyoSure resection. SURGEON: Dr. Gloria Rodriguez DIRECTOR TRUST: None. ANESTHESIA: LMA DESCRIPTION OF PROCEDURE: Leatha was brought to the operating room where sufficient LMA anesthesia was induced and she was prepped, draped and positioned in the usual sterile fashion and the bladder emptied. The anterior aspect of the cervix grasped with a single tooth tenaculum. She had some obstetrical injury to the cervix and a reasonable support. The cervix was then dilated and the hysteroscope placed following which the endometrial cavity was visualized. There were normal tubal ostia bilaterally and displaced to the patient's left, there is a [id number] synechiae within the cavity. It is very likely that this created the abnormal ultrasound appearance. There does not appear to be any polyp or hyperplastic growth or abnormal vascularity or friability to the endometrium. We took the MyoSure light and took down that synechiae as well as sampling circumferentially all of the atrophic endometrial lining and any other areas of interest were sampled under direct visualization. We then undertook good curettage and the procedure was then ended. Estimated blood loss for the procedure was maybe 3 mL. Fluid replacement was crystalloid. Complications: None. CONDITION AND DISPOSITION: Leatha tolerated the procedure well and was recovering in the recovery room in good condition.
[2017-04-04] MEDS ORDERED: COLD PO (11:56)
[2017-04-04] MEDS ORDERED: AMBI10TA PO (11:56)
[2017-04-04] MEDS ORDERED: FLU PO (11:56)
[2017-04-04] MEDS ORDERED: ZITHTAB PO (14:00)
[2017-04-04] MEDS ORDERED: GUAI100S7 PO (14:00)
== END 2016-12-27 16:24 | disposition home or self-care (01) ==
LOC: M SDC 09:40
PROVIDERS: ATTEND Obstetrics & Gynecology
DX: N95.0 Postmenopausal bleeding (principal); R93.8 Abnormal findings on diagnostic imaging of other specified body structures; N85.6 Intrauterine synechiae; I11.0 Hypertensive heart disease with heart failure; G47.33 Obstructive sleep apnea (adult) (pediatric); D64.9 Anemia, unspecified; R23.3 Spontaneous ecchymoses; R29.898 Other symptoms and signs involving the musculoskeletal system; M12.9 Arthropathy, unspecified; M54.2 Cervicalgia; G43.909 Migraine, unspecified, not intractable, without status migrainosus; J44.9 Chronic obstructive pulmonary disease, unspecified; R06.83 Snoring; N17.9 Acute kidney failure, unspecified; J30.2 Other seasonal allergic rhinitis; R06.02 Shortness of breath; Z88.8 Allergy status to other drugs, medicaments and biological substances; Z79.899 Other long term (current) drug therapy; Z85.118 Personal history of other malignant neoplasm of bronchus and lung; Z78.0 Asymptomatic menopausal state
CPT/HCPCS: 58558; 88304; 88305; J1100; J1885; J2250; J2370; J2405

== ENCOUNTER → 2017-02-22 | Outpatient (CLI) | payer MEDICARE, BC, OTHER ==
[~2017-02-22] MED LIST changes: +COLD PO; +FLU PO; +GUAI100S7 PO; +ZITHTAB PO
[2017-02-22 10:55] LABS: MEAN CORPUSCULAR HEMOGLOBIN 29.7 pg (27.0-33.0); MEAN CORPUSCULAR HGB CONC 32.3 g/dl (32.0-36.5); RED CELL DISTRIBUTION WIDTH 13.3 % (11.5-14.5); WHITE BLOOD COUNT 12.8 10^3/uL (4.0-10.0)
--- NOTE | 2017-02-22 11:20 | REP ---
PA and lateral chest: Comparisons are the PA and lateral chest studies dated 09/22/2016 and 04/12/2013 and is also a chest CT dated 09/22/2016. There is chronic mild effacement of the right costophrenic angle, unchanged from all prior studies. On the comparison CT there is chronic mild pleuroparenchymal scarring. There is no effusion, nodule or mass. The lung goff otherwise clear. Cardiac size is normal. The bartolo, mediastinum, and bony thorax are unremarkable. There is a multilevel metallic plate in the cervical spine, unchanged. Impression: Chronic pleuroparenchymal scarring in the right costophrenic angle. Otherwise, negative PA and lateral chest. Signed by Jose Jackson MD 02/22/2017 11:11 A
[2017-02-22 11:31] LABS: ALBUMIN 3.9 GM/DL (3.2-5.2); ALBUMIN/GLOBULIN RATIO 1.15 (1.00-1.93); ALKALINE PHOSPHATASE 81 U/L (45-117); ALT/SGPT 26 U/L (12-78); ANION GAP 8 MEQ/L (8-16); AST/SGOT 15 U/L (15-37); BILIRUBIN,TOTAL 0.3 MG/DL (0.2-1.0); BLOOD UREA NITROGEN 11 MG/DL (7-18); CALCIUM LEVEL 9.8 MG/DL (8.8-10.2); CARBON DIOXIDE LEVEL 29 MEQ/L (21-32); CHLORIDE LEVEL 100 MEQ/L (98-107); CHOLESTEROL LEVEL 253 MG/DL (<200); CREATININE FOR GFR 0.68 MG/DL (0.55-1.02); GLOMERULAR FILTRATION RATE > 60.0 (>45); GLUCOSE, FASTING 101 MG/DL (80-110); POTASSIUM SERUM 3.6 MEQ/L (3.5-5.1); SODIUM LEVEL 137 MEQ/L (136-145); TOTAL PROTEIN 7.3 GM/DL (6.4-8.2); TRIGLYCERIDES LEVEL 118 MG/DL (<150)
--- NOTE | 2017-02-22 22:06 | ECGEPIP ---
Stationary ECG Study [facility] Test Date: 2017-02-22 Pat Name: YUE ORELLANA Department: Room: - Gender: F Practice Manager: PAM : 1950 Requested By: Sunil Jon Order Number: [id number] Reading MD: August Leon Measurements Intervals [place] Rate: 92 P: 48 ID: [id number] QRS: -2 QRSD: 90 T: 31 QT: 376 QTc: 467 Interpretive Statements SINUS RHYTHM POSSIBLE RIGHT VENTRICULAR CONDUCTION DELAY MINIMAL ST DEPRESSION-ARTIFACT NOTED ON THE BASELINE PARTICULARLY IN THE LIMB LEADS COMPARED TO THE LAST 5 TRACINGS IN THE SYSTEM, NO SIGNIFICANT CHANGES Electronically Signed On 02-22-2017 22:06:03 EDT by August Leon
== END ==
LOC: M LAB 10:12
PROVIDERS: ATTEND Family Medicine
DX: I10 Essential (primary) hypertension (principal); J44.9 Chronic obstructive pulmonary disease, unspecified; R53.83 Other fatigue

== ENCOUNTER → 2017-04-11 | Outpatient (CLI) | payer MEDICARE, BC, OTHER ==
[~2017-04-11] MED LIST changes: +ALKATAB24 PO; +BREO1INH3 INH; +CEFD1CAP8 PO; +LATA5OPD OU; +OXYC1TAB16 PO; +VENTAER INH
--- NOTE | 2017-04-11 16:41 | REP ---
Clinical: Trauma. Pain to the right hemithorax. Technique: For oblique views of the right hemithorax. Findings: While no definite acute right rib fracture is appreciated, a very subtle nondisplaced anterolateral rib fracture cannot definitively be excluded and should be correlated with physical examination. No obvious pulmonary parenchymal consolidation, effusion or pneumothorax. Remainder examination demonstrates chronic stable changes when compared to chest x-ray dated 04/04/2017. Impression: No obvious or definite displaced right rib fracture. Subtle occult injury cannot definitively be excluded. Signed by Sean Reese MD 04/11/2017 04:32 P
--- NOTE | 2017-04-18 09:27 | REP ---
Clinical: Trauma. Technique: PA and lateral. Comparison: 04/04/2017. Findings: Mediastinum and cardiac silhouette are stable. Postsurgical changes at the right hilum noted. Evidence for prior anterior cervical fusion. Trace right basilar atelectasis cannot be excluded. No focal consolidation, effusion, or pneumothorax. Visualized skeletal structures appear intact and noted a right rib fracture is not identified. Impression: Trace basilar atelectasis. Right rib fracture not identified. Signed by Sean Reese MD 04/18/2017 09:18 A
== END ==
LOC: M LAB 14:45
PROVIDERS: ATTEND Family Medicine
DX: R07.89 Other chest pain (principal); J44.9 Chronic obstructive pulmonary disease, unspecified; J98.11 Atelectasis

== ENCOUNTER 2017-04-14 11:31 | Inpatient (IN) | payer MEDICARE, BC, OTHER ==
[~2017-04-14] VITALS: Ht 157.5 cm; Wt 110.1 kg
[~2017-04-14 11:31] MED LIST changes: -ALKATAB24 PO; -BREO1INH3 INH; -CEFD1CAP8 PO; -LATA5OPD OU; -OXYC1TAB16 PO; -VENTAER INH
[2017-04-14] MEDS ORDERED: methylPREDNISolone INJ 125 MG/2 ML VIAL (J2930) IV ONE (12:45)
[2017-04-14] MEDS: IPRATROPIUM 0.5MG/ALBUTEROL 2.5MG INH SOL UD 3ML (DUONEB)(J7620) NEB PRN ×2 (13:04→13:31)
[2017-04-14 13:11] LABS: ABG BASE EXCESS 2.4 (-2.0-2.0); ABG HCO3 28.1 MEQ/L (22.0-26.0); ABG PARTIAL PRESSURE CO2 48.9 mmHg (35.0-45.0); ABG PARTIAL PRESSURE O2 98.7 mmHg (75.0-100.0); ABG STANDARD HCO3 26.6 MEQ/L (22.0-26.0); ABG TOTAL CO2 29.6 MEQ/L (23.0-31.0); ABG pH (ARTERIAL) 7.378 UNITS (7.350-7.450)
[2017-04-14 13:15] LABS: BASO % 0.3 % (0.0-1.0); EOS % 0.1 % (0.0-3.0); IMMATURE GRANULOCYTE % 0.8 % (0-0); LYMPH # 1.7 10^3/uL (1.5-4.5); LYMPH % 11.2 % (24.0-44.0); MEAN CORPUSCULAR HEMOGLOBIN 30.3 pg (27.0-33.0); MEAN CORPUSCULAR HGB CONC 31.9 g/dl (32.0-36.5); MONO # 0.7 10^3/uL (0.0-0.8); NEUTROPHILS # 12.2 10^3/uL (1.8-7.7); NEUTROPHILS % 82.6 % (36.0-66.0); PLATELET COUNT, AUTOMATED 321 10^3/uL (150-450); RED CELL DISTRIBUTION WIDTH 14.4 % (11.5-14.5); WHITE BLOOD COUNT 14.8 10^3/uL (4.0-10.0)
[2017-04-14 13:41] LABS: ANION GAP 6 MEQ/L (8-16); BLOOD UREA NITROGEN 13 MG/DL (7-18); CALCIUM LEVEL 9.3 MG/DL (8.8-10.2); CARBON DIOXIDE LEVEL 32 MEQ/L (21-32); CHLORIDE LEVEL 101 MEQ/L (98-107); CREATININE FOR GFR 0.59 MG/DL (0.55-1.02); GLOMERULAR FILTRATION RATE > 60.0 (>45); GLUCOSE, FASTING 93 MG/DL (80-110); POTASSIUM SERUM 4.5 MEQ/L (3.5-5.1); SODIUM LEVEL 139 MEQ/L (136-145)
[2017-04-14 14:37] VITALS: O2SAT 87
[2017-04-14] MEDS ORDERED: FUROSEMIDE 40 MG/4 ML VIAL (J1940) IV ONE (14:45)
--- NOTE | 2017-04-14 14:45 | REP ---
Clinical: Cough. Dyspnea. Technique: PA and lateral. Comparison: 04/11/2017. Findings: Mild interstitial edema cannot be excluded. Trace basilar atelectasis requires correlation. No focal consolidation, effusion, or pneumothorax. Impression: Cannot exclude mild pulmonary vascular congestion/interstitial edema and trace basilar atelectasis. Signed by Sean Reese MD 04/14/2017 02:36 P
--- NOTE | 2017-04-14 14:50 | HPEPDOC ---
[facility] Medical History & Physical Date of Admission Apr 14, 2017 History and Physical ATTENDING: PCP: Dr Gamboa Pulmonary Dr Holliday Nephrology Dr Clniton. CC: SOB HPI: 66yoF who states she has felt sick with SOB for about 1 month. Treated as outpt as per PCP with po antibiotics and po steroids. Was seen in ED 04/04/17 related to URI symptoms and again 04/11/17 related to fall. Pt states she caught her left foot and tripped, denies LOC or head injury. Rib XR no acute fracture. Pt returns today stating she has persistent SOB and wheezing. Dry cough. Has noticed LE edema recently, denies orthopnea, PND. has cane and walker but she does not use these. Uses O2 2LNC at night. Temp at home 99 per pt. Has felt chilled. Denies any GUILLERMO, CP, palpitations, abdominal pain, N/V/D or changes in bowel or bladder habits. Upon presentation to the hospital the patient was found to have COPD exacerbation, thus the hospitalist team was consulted. PMHx: Lung cancer status post resection 2009 Dr Lopez, no chemo/radiation. HTN Depression Anxiety COPD Seasonal allergies Migraines H/O PNA H/O Closed rib fractures Chiari malformation peripheral neuropathy CHF CKD2 [facility]. PSHx Spinal fusion cervical and Lumbar. H/O T12 compression fracture. Right upper lobectomy. Dr Lopez. Carpal tunnel repair Cholecystectomy Chiari malformation decompression C section SOCHX: Resides in: [facility] Marital Status: Tobacco use: 2 ppd x 30 years, quit 2009 ETOH:none x 2 mo. Illicit Drugs: Denies FAMHX: Mother of CHF Father of heart and liver disease ROS: As noted in HPI, otherwise 11pt ROS of systems reviewed and unremarkable. PE: GEN: 66yoF, appears stated age. Well-nourished, well developed. No acute distress. Alert and oriented x 3. Pleasant, interactive. HEENT: Normocephalic, atraumatic. Pupils are equal, round, and reactive to light. Extraocular movements are intact. No nystagmus appreciated. Sclera are nonicteric. Conjunctiva without injection. Nose midline. No facial asymmetry. Moist mucous membranes. Upper dentures. Pharynx pink and moist. Neck supple, trachea midline. No lymphadenopathy or thyromegaly appreciated. CHEST: Regular rate and rhythm, +S1, +S2 LUNGS: Decreased BS B/L with insp/exp wheezes noted. No rales, or rhonchi. ABD: Round, soft, non-tender, non-distended. +Bowel sounds throughout. No rebound or guarding. No costovertebral angle tenderness. EXT: Pulses 2+ bilaterally dorsalis pedis and radial. 1mmLE edema appreciated to prox pretib area. SKIN: [place], dry, warm. Capillary refill <2sec. No rashes. NEURO: Alert and oriented x 3. Cranial nerves III-XII are intact. No focal deficits appreciated. CXR: 04/14/17 Cannot exclude mild pulmonary vascular congestion/interstitial edema and trace basilar atelectasis. 04/11/17 XR Ribs No obvious or definite displaced right rib fracture. Subtle occult injury cannot definitively be excluded. CT: chest pending. EKG: SR/SA 93 bpm. BLOOD CULTURES x2: pending Rapid Flu neg. A&P: 6yoF who states she has felt sick with SOB for about 1 month. Treated as outpt as per PCP with po antibiotics and po steroids. Was seen in ED 04/04/17 related to URI symptoms and again 04/11/17 related to fall. Pt states she caught her left foot and tripped, denies LOC or head injury. Rib XR no acute fracture. Pt returns today stating she has persistent SOB and wheezing. Dry cough. Has noticed LE edema recently, denies orthopnea, PND. has cane and walker but she does not use these. Uses O2 2LNC at night. Temp at home 99 per pt. Has felt chilled 1. The patient will be admitted to /S for at least [address] Rodriguez's service. Pt is discussed with Dr Bourgeois. 2. COPD exacerbation. Supplemental O2, nebs, IV antibiotics (Rocephin, Z Max), IV solumedrol. Resp panel/Sputum cx pending. CRP pending. 3. H/O CHF/edema. BNP 386. IV Lasix x 1 dose in ED. TTE pending. 4. HTN. Continue Lisinopril, Norvasc with hold parameters. Add prn Hydralazine IV SBP >150. 5. CKD2. Monitor. 6. H/O Lung Ca, S/P resection. Request CT chest with contrast. 7. Chronic pain/back pain/neck pain/rib pain/migraine GUILLERMO. Cont Baclofen, gabapentin and [place] prn. 8. GERD. PPI. 9. Anemia. Appears to be at baseline. Add Fe studies. B12, folate. DVT prophylaxis. Lovenox. Vital Signs Vital Signs Date Time Temp Pulse Resp B/P (MAP) Pulse Ox O2 Delivery O2 Flow Rate FiO2 04/14/17 14:37 87 Room Air 04/14/17 12:05 04/14/17 11:45 97.2 96 18 2.0 Laboratory Data Labs 24H Laboratory Tests 2 04/14/17 12:43: Immature Granulocyte % (Auto) 0.8H, White Blood Count 14.8H, Red Blood Count 3.60L, Hemoglobin 10.9L, Hematocrit 34.2L, Mean Corpuscular Volume 95.0, Mean Corpuscular Hemoglobin 30.3, Mean Corpuscular Hemoglobin Concent 31.9L, Red Cell Distribution Width 14.4, Platelet Count 321, Neutrophils (%) (Auto) 82.6H, Lymphocytes (%) (Auto) 11.2L, Monocytes (%) (Auto) 5.0, Eosinophils (%) (Auto) 0.1, Basophils (%) (Auto) 0.3, Neutrophils # (Auto) 12.2H, Lymphocytes # (Auto) 1.7, Monocytes # (Auto) 0.7, Eosinophils # (Auto) 0.0, Basophils # (Auto) 0.0, Immature Granulocyte # (Auto) 0.1H, Nucleated Red Blood Cells % (auto) 0.0, Anion Gap 6L, Glomerular Filtration Rate > 60.0, Lactic Acid Level 1.1, Blood Urea Nitrogen 13, Creatinine 0.59, Sodium Level 139, Potassium Level 4.5, Chloride Level 101, Carbon Dioxide Level 32, Calcium Level 9.3, Total Creatine Kinase 84, Creatine Kinase MB 2.3, Creatine Kinase MB Relative Index 2.73, Troponin I < 0.02, SC-Tjx-Q-Type Natriuretic Peptide 386H 04/14/17 12:56: Blood Gas Bicarbonate Standard 26.6H, Arterial Blood pH 7.378, Arterial Blood Partial Pressure CO2 48.9H, Arterial Blood Partial Pressure O2 98.7, Arterial Blood Total CO2 29.6, Arterial Blood HCO3 28.1H, Arterial Blood Base Excess 2.4H , Arterial Blood Oxygen Saturation 97.9 CBC/BMP Laboratory Tests 04/14/17 12:43 Red Blood Count 3.60 L, Mean Corpuscular Volume 95.0, Mean Corpuscular Hemoglobin 30.3, Mean Corpuscular Hemoglobin Concent 31.9 L, Red Cell Distribution Width 14.4, Neutrophils (%) (Auto) 82.6 H, Lymphocytes (%) (Auto) 11.2 L, Monocytes (%) (Auto) 5.0, Eosinophils (%) (Auto) 0.1, Basophils (%) ( Auto) 0.3, Neutrophils # (Auto) 12.2 H, Lymphocytes # (Auto) 1.7, Monocytes # ( Auto) 0.7, Eosinophils # (Auto) 0.0, Basophils # (Auto) 0.0, Calcium Level 9.3, Total Creatine Kinase 84 Microbiology Microbiology 04/14/17 Blood Culture, Received Pending 04/14/17 Blood Culture, Received Pending 04/14/17 Influenza Virus Type A Antigen - Final, Complete 04/14/17 Influenza Virus Type B Antigen - Final, Complete Home Medications Scheduled (Klor-Con Marco) 8 Meq Cap, 16 MEQ PO DAILY Amlodipine Besylate (Amlodipine Besylate) 5 Mg Tab, 5 MG PO DAILY Baclofen (Baclofen) 10 Mg Tab, 10 MG PO TID Cholecalciferol (Vitamin D) 5,000 Unit Tab, 5,000 UNIT PO DAILY Fluoxetine Hcl (Fluoxetine HCl) 40 Mg Cap, 40 MG PO DAILY Fluticasone/Vilanterol (Breo Ellipta 200-25 Mcg/INH) 1 Inh Inh, 1 PUFF INH DAILY Gabapentin (Gabapentin) 400 Mg Cap, 400 MG PO TID Guaifenesin (Mucinex) 600 Mg Tab, 600 MG PO BID Hydrochlorothiazide (Hydrochlorothiazide) 25 Mg Tab, 25 MG PO DAILY Latanoprost (Latanoprost) 50 Drop/2.5 Ml Soln, 1 DROP OU QHS Lisinopril (Lisinopril) 5 Mg Tab, 5 MG PO QHS Pantoprazole Sodium (Pantoprazole Sodium) 40 Mg Tab, 40 MG PO DAILY Zolpidem Tartrate (Ambien) 10 Mg Tab, 10 MG PO QHS Scheduled PRN (Oxycodone/Acetaminophen 10-325 mg) 1 Tab Tab, 1 TAB PO TID PRN for PAIN (Annalise-[place] Plus Night C 7.8-6.25-10-500 mg) 1 Tab Tab, 1 TAB PO QHS PRN for COUGH/COLD Albuterol Sulfate (Ventolin Hfa) 108 Mcg/Act Aer, 2 PUFFS INH QID PRN for SHORTNESS OF BREATH Prednisone (Prednisone) 10 Mg Tab, 10 MG PO TID PRN for COUGH PATIENT STATES SHE ONLY TAKES WHEN SHE'S SICK Sumatriptan Succinate (Sumatriptan Succinate) 100 Mg Tab, 100 MG PO PRN PRN for MIGRAINE Allergies Coded Allergies: Pregabalin (Verified Allergy, Mild, 04/04/17) Fentanyl (Verified Allergy, Unknown, 04/04/17) Benzodiazepines (Verified Adverse Reaction, Intermediate, DELIRIUM, ) Attending Note Attending Note I have both independently examined this patient as well as reviewed the H&P. I have discussed in detail with Perlita the findings and plan of treatment as documented in Jarvis note. I will continue to follow the patient and offer further guidance to the patients care as necessary during this hospital stay. Perlita Lima Apr 14, 2017 14:50 WILL BOURGEOIS MD Apr 15, 2017 11:29
[2017-04-14] MEDS ORDERED: BREO1INH3 INH (15:19)
[2017-04-14] MEDS ORDERED: OXYC1TAB16 PO (15:19)
[2017-04-14] MEDS ORDERED: PRED10TA2 PO (15:19)
[2017-04-14] MEDS ORDERED: LATA5OPD OU (15:19)
[2017-04-14] MEDS ORDERED: VENTAER INH (15:19)
[2017-04-14] MEDS ORDERED: ALKATAB24 PO (15:19)
[2017-04-14] MEDS ORDERED: ISOVUE-370 76% 100ML VIAL (Q9967) As Ordered ONE (15:44)
[2017-04-14 15:53] LABS: FERRITIN 27 NG/ML (8-252); TOTAL IRON BINDING CAPACITY 415 UG/DL (250-450)
[2017-04-14 16:05] LABS: VITAMIN B12 LEVEL 1367 PG/ML (247-911)
[2017-04-14 16:06] LABS: FOLATE 12.1 NG/ML (>5.4)
--- NOTE | 2017-04-14 16:20 | REP ---
Clinical: Shortness of breath with history of lung cancer. Technique: Axial contrast enhanced images from the thoracic inlet to the upper abdomen using 100 ml Isovue 370 intravenous contrast material with coronal and sagittal re-formations. Comparison: 09/22/2016. Findings: Evidence for prior partial right lobectomy. Right hilar and subpleural postsurgical changes are appreciated along with right-sided subpleural chronic scarring. Trace left basilar atelectasis is appreciated. No acute consolidation, obvious significant nodule or mass lesion. No pleural effusion. No pneumothorax. Tracheobronchial tree is patent. No axillary, hilar, or mediastinal adenopathy. Mild atherosclerotic changes to the thoracic aorta and coronary arteries noted without aortic aneurysm. No cardiomegaly or pericardial effusion. Limited upper abdomen demonstrates normal bilateral adrenal glands and evidence for prior cholecystectomy. Impression: Postsurgical and chronic-appearing changes primarily involving the right hemithorax which are similar to 09/22/2016. Trace left basilar atelectasis. Signed by Sean Reese MD 04/14/2017 04:12 P
[2017-04-14] MEDS: hydrALAZINE INJ 20 MG/ML VIAL IV SCH (16:35)
[2017-04-14] MEDS: ANEXSIA, NORCO 7.5MG/325MG TABLET(HYDROCODONE/APAP) PO PRN (16:35)
[2017-04-14] MEDS: AZITHROMYCIN INJ 500 MG, VIAL MATE ADAPTER 1 EACH in D5W 250 ML IV SCH (17:47)
[2017-04-14] MEDS ORDERED: IPRATROPIUM 0.5MG/ALBUTEROL 2.5MG INH SOL UD 3ML (DUONEB)(J7620) NEB PRN (18:00)
[2017-04-14] MEDS: CEFTRIAXONE SOD 1 GM in APPROPRIATE DILUENT 1 EA IV SCH (18:00)
[2017-04-14 20:25] VITALS: BP 161/73
[2017-04-14] MEDS: ENOXAPARIN 40 MG/0.4 ML SYRINGE (J1650) SC SCH (20:34)
[2017-04-14] MEDS: BACLOFEN 10 MG TAB PO SCH (20:34)
[2017-04-14] MEDS: methylPREDNISolone INJ 125 MG/2 ML VIAL (J2930) IV SCH (20:34)
[2017-04-14] MEDS: guaiFENesin ER 600 MG TAB PO SCH (20:34)
[2017-04-14] MEDS: LATANOPROST 0.005% OPHTH SOLN 2.5 ML OU SCH (20:34)
[2017-04-14] MEDS: GABAPENTIN 400 MG CAP PO SCH (20:35)
[2017-04-14] MEDS: LISINOPRIL 5 MG TAB PO SCH (20:35)
[2017-04-14] MEDS: IPRATROPIUM 0.5MG/ALBUTEROL 2.5MG INH SOL UD 3ML (DUONEB)(J7620) NEB SCH (20:58)
[2017-04-14 23:59] VITALS: BP 137/82
[2017-04-15] MEDS: ANEXSIA, NORCO 7.5MG/325MG TABLET(HYDROCODONE/APAP) PO PRN ×2 (00:16→11:55)
[2017-04-15] MEDS: methylPREDNISolone INJ 125 MG/2 ML VIAL (J2930) IV SCH ×4 (00:16→18:03)
[2017-04-15] MEDS: IPRATROPIUM 0.5MG/ALBUTEROL 2.5MG INH SOL UD 3ML (DUONEB)(J7620) NEB SCH ×4 (02:00→19:36)
[2017-04-15 04:00] VITALS: BP 156/83
[2017-04-15 05:16] LABS: BASO % 0.1 % (0.0-1.0); EOS % 0.2 % (0.0-3.0); IMMATURE GRANULOCYTE % 0.8 % (0-0); LYMPH # 0.6 10^3/uL (1.5-4.5); LYMPH % 3.6 % (24.0-44.0); MEAN CORPUSCULAR HGB CONC 32.2 g/dl (32.0-36.5); MEAN CORPUSCULAR VOLUME 93.4 fl (80.0-96.0); MONO # 0.3 10^3/uL (0.0-0.8); MONO % 1.6 % (0.0-5.0); NEUTROPHILS # 15.7 10^3/uL (1.8-7.7); NEUTROPHILS % 93.7 % (36.0-66.0); PLATELET COUNT, AUTOMATED 365 10^3/uL (150-450); RED CELL DISTRIBUTION WIDTH 14.3 % (11.5-14.5); WHITE BLOOD COUNT 16.7 10^3/uL (4.0-10.0)
[2017-04-15 05:37] LABS: ALBUMIN 3.6 GM/DL (3.2-5.2); ALBUMIN/GLOBULIN RATIO 0.88 (1.00-1.93); ALKALINE PHOSPHATASE 86 U/L (45-117); ALT/SGPT 33 U/L (12-78); ANION GAP 7 MEQ/L (8-16); AST/SGOT 10 U/L (7-37); BILIRUBIN,TOTAL 0.2 MG/DL (0.2-1.0); BLOOD UREA NITROGEN 16 MG/DL (7-18); CALCIUM LEVEL 9.5 MG/DL (8.8-10.2); CARBON DIOXIDE LEVEL 32 MEQ/L (21-32); CHLORIDE LEVEL 97 MEQ/L (98-107); CREATININE FOR GFR 0.72 MG/DL (0.55-1.02); GLOMERULAR FILTRATION RATE > 60.0 (>45); GLUCOSE, FASTING 159 MG/DL (80-110); POTASSIUM SERUM 3.7 MEQ/L (3.5-5.1); SODIUM LEVEL 136 MEQ/L (136-145); TOTAL PROTEIN 7.7 GM/DL (6.4-8.2)
[2017-04-15] MEDS: hydrALAZINE INJ 20 MG/ML VIAL IV SCH ×3 (07:40→15:52)
[2017-04-15 08:00] VITALS: BP 146/82
[2017-04-15] MEDS: VITAMIN D 1,000 INTERNATIONAL UNITS TABLET PO SCH (08:23)
[2017-04-15] MEDS: PANTOPRAZOLE 40MG TAB (PROTONIX) PO SCH (08:23)
[2017-04-15] MEDS: GABAPENTIN 400 MG CAP PO SCH ×3 (08:24→20:43)
[2017-04-15] MEDS: guaiFENesin ER 600 MG TAB PO SCH ×2 (08:24→20:43)
[2017-04-15] MEDS: amLODIPine 5 MG TAB PO SCH (08:24)
[2017-04-15] MEDS: BACLOFEN 10 MG TAB PO SCH ×3 (08:24→20:43)
[2017-04-15] MEDS: FLUoxetine 20 MG CAP PO SCH (08:24)
[2017-04-15] MEDS: hydroCHLOROthiazide 25 MG TAB PO SCH (08:24)
--- NOTE | 2017-04-15 08:31 | ECGEPIP ---
Stationary ECG Study [facility] - ED Test Date: 2017-04-14 Pat Name: YUE ORELLANA Department: Room: - Gender: F Poll Clerk: : 1950 Requested By: Rajinder Delgadillo Order Number: [id number] Reading MD: Leatha Sánchez Measurements Intervals [place] Rate: 93 P: 34 [place]: 141 QRS: -12 QRSD: 82 T: 18 QT: 364 QTc: 453 Interpretive Statements SINUS RHYTHM WITH SINUS ARRHYTHMIA NSTTW ABNORMALITY Electronically Signed On 04-15-2017 8:30:55 EST by Leatha Sánchez
--- NOTE | 2017-04-15 11:35 | IPNPDOC ---
Subjective Date Seen The patient was seen on 04/15/17. Subjective Chief Complaint/HPI Patient seen and examined at the bedside. States that her respiratory status is improved today. Objective Physical Examination General Exam: Positive: Alert, Cooperative, No Acute Distress ENT Exam: Positive: Atraumatic, Mucous membr. moist/pink Neck Exam: Negative: JVD Chest Exam: Positive: Wheezing, Diminished Heart Exam: Positive: Rate Normal, Normal S1, Normal S2 Telemetry: Positive: Sinus Abdomen Exam: Positive: Soft, Negative: Tenderness Extremity Exam: Negative: Tenderness, Swelling Psych Exam: Positive: Oriented x 3 Assessment /Plan Plan/VTE VTE Prophylaxis Ordered?: Yes Plan Acute Hypoxic Failure 2/2 COPD exacerbation Cont Supplemental Oxygen--will down-titrate as tolerated Cont nebs, IV Rocephin, Zithromax, and IV solumedrol as ordered Resp panel/Sputum cx unrevealing thus far Patient reports improvement of respiratory status--we will cont to monitor History of Diastolic Dysfunction Stage 1 2D ECHO from 01/2013 notable for Stage 1 DD, preserved EF Repeat 2D ECHO pending HTN, stable Continue Lisinopril, Norvasc, HCTZ History of Lung Ca S/P resection in 2009--biopsy results notable for moderate to focal poorly differentiated adenocarcinoma No hx of Chemo or Radiation CT chest with contrast with no acute findings Chronic pain Cont Baclofen, gabapentin and [place] prn. GERD Cont PPI. Chronic Normocytic Anemia Hgb stable, no indication for transfusion DVT prophylaxis SC Lovenox. VS, I&O, 24H, Fishbone Vital Signs/I&O Vital Signs Date Time Temp Pulse Resp B/P (MAP) Pulse Ox O2 Delivery O2 Flow Rate FiO2 04/15/17 08:24 100 146/82 04/15/17 08:00 96.5 18 95 Nasal Cannula 2.0 I&O- Last 24 Hours up to 6 AM 04/16/17 06:00 Intake Total 0 ml Output Total 300 ml Balance -300 ml Laboratory Data 24H LABS Laboratory Tests 2 04/14/17 12:43: Immature Granulocyte % (Auto) 0.8H, White Blood Count 14.8H, Red Blood Count 3.60L, Hemoglobin 10.9L, Hematocrit 34.2L, Mean Corpuscular Volume 95.0, Mean Corpuscular Hemoglobin 30.3, Mean Corpuscular Hemoglobin Concent 31.9L, Red Cell Distribution Width 14.4, Platelet Count 321, Neutrophils (%) (Auto) 82.6H, Lymphocytes (%) (Auto) 11.2L, Monocytes (%) (Auto) 5.0, Eosinophils (%) (Auto) 0.1, Basophils (%) (Auto) 0.3, Neutrophils # (Auto) 12.2H, Lymphocytes # (Auto) 1.7, Monocytes # (Auto) 0.7, Eosinophils # (Auto) 0.0, Basophils # (Auto) 0.0, Immature Granulocyte # (Auto) 0.1H, Nucleated Red Blood Cells % (auto) 0.0, Anion Gap 6L, Glomerular Filtration Rate > 60.0, Lactic Acid Level 1.1, Blood Urea Nitrogen 13, Creatinine 0.59, Sodium Level 139, Potassium Level 4.5, Chloride Level 101, Carbon Dioxide Level 32, Calcium Level 9.3, Total Creatine Kinase 84, Iron Level 33L, Total Iron Binding Capacity 415, Transferrin % Saturation 8.0L, Ferritin 27, Creatine Kinase MB 2.3, Creatine Kinase MB Relative Index 2.73, Troponin I < 0.02, C-Reactive Protein, Quantitative 2.70H, WW-Avm-R-Type Natriuretic Peptide 386H, Vitamin B12 Level 1367H, Folate 12.1 04/14/17 12:56: Blood Gas Bicarbonate Standard 26.6H, Arterial Blood pH 7.378, Arterial Blood Partial Pressure CO2 48.9H, Arterial Blood Partial Pressure O2 98.7, Arterial Blood Total CO2 29.6, Arterial Blood HCO3 28.1H, Arterial Blood Base Excess 2.4H , Arterial Blood Oxygen Saturation 97.9 04/14/17 17:50: Total Creatine Kinase 83, Creatine Kinase MB 1.5, Creatine Kinase MB Relative Index 1.80 04/15/17 02:04: Total Creatine Kinase 59, Creatine Kinase MB 1.1, Creatine Kinase MB Relative Index 1.86 04/15/17 05:03: Immature Granulocyte % (Auto) 0.8H, White Blood Count 16.7H, Red Blood Count 3.93L, Hemoglobin 11.8L, Hematocrit 36.7, Mean Corpuscular Volume 93.4, Mean Corpuscular Hemoglobin 30.0, Mean Corpuscular Hemoglobin Concent 32.2, Red Cell Distribution Width 14.3, Platelet Count 365, Neutrophils (%) (Auto) 93.7H, Lymphocytes (%) (Auto) 3.6L, Monocytes (%) (Auto) 1.6, Eosinophils (%) (Auto) 0.2, Basophils (%) (Auto) 0.1, Neutrophils # (Auto) 15.7H, Lymphocytes # (Auto) 0.6L, Monocytes # (Auto) 0.3, Eosinophils # (Auto) 0.0, Basophils # (Auto) 0.0, Immature Granulocyte # (Auto) 0.1H, Nucleated Red Blood Cells % (auto) 0.0, Anion Gap 7L, Glomerular Filtration Rate > 60.0, Blood Urea Nitrogen 16, Creatinine 0.72, Sodium Level 136, Potassium Level 3.7, Chloride Level 97L, Carbon Dioxide Level 32, Calcium Level 9.5, Aspartate Amino Transf (AST/SGOT) 10 , Alanine Aminotransferase (ALT/SGPT) 33, Alkaline Phosphatase 86, Total Bilirubin 0.2, Total Protein 7.7, Albumin 3.6, Magnesium Level 2.0, Albumin/ Globulin Ratio 0.88L 04/15/17 10:02: Total Creatine Kinase 49, Creatine Kinase MB 1.0, Creatine Kinase MB Relative Index 2.04 CBC/BMP Laboratory Tests 04/14/17 12:43 Red Blood Count 3.60 L, Mean Corpuscular Volume 95.0, Mean Corpuscular Hemoglobin 30.3, Mean Corpuscular Hemoglobin Concent 31.9 L, Red Cell Distribution Width 14.4, Neutrophils (%) (Auto) 82.6 H, Lymphocytes (%) (Auto) 11.2 L, Monocytes (%) (Auto) 5.0, Eosinophils (%) (Auto) 0.1, Basophils (%) ( Auto) 0.3, Neutrophils # (Auto) 12.2 H, Lymphocytes # (Auto) 1.7, Monocytes # ( Auto) 0.7, Eosinophils # (Auto) 0.0, Basophils # (Auto) 0.0, Calcium Level 9.3, Total Creatine Kinase 84 04/15/17 05:03 Red Blood Count 3.93 L, Mean Corpuscular Volume 93.4, Mean Corpuscular Hemoglobin 30.0, Mean Corpuscular Hemoglobin Concent 32.2, Red Cell Distribution Width 14.3, Neutrophils (%) (Auto) 93.7 H, Lymphocytes (%) (Auto) 3.6 L, Monocytes (%) (Auto) 1.6, Eosinophils (%) (Auto) 0.2, Basophils (%) (Auto ) 0.1, Neutrophils # (Auto) 15.7 H, Lymphocytes # (Auto) 0.6 L, Monocytes # ( Auto) 0.3, Eosinophils # (Auto) 0.0, Basophils # (Auto) 0.0, Calcium Level 9.5, Aspartate Amino Transf (AST/SGOT) 10, Alanine Aminotransferase (ALT/SGPT) 33, Alkaline Phosphatase 86, Total Bilirubin 0.2, Total Protein 7.7, Albumin 3.6 Microbiology Microbiology 04/14/17 Blood Culture, Received Pending 04/14/17 Blood Culture, Received Pending 04/14/17 Respiratory Virus Panel (PCR) ([facility]) - Final, Complete 04/14/17 Influenza Virus Type A Antigen - Final, Complete 04/14/17 Influenza Virus Type B Antigen - Final, Complete EDWARD BRAVO MD Apr 15, 2017 11:35
[2017-04-15 12:00] VITALS: BP 154/78
--- NOTE | 2017-04-15 14:58 | ECHO ---
DATE OF PROCEDURE: 04/15/2017 REFERRING PHYSICIAN: Dr. Rodriguez and MARIAM Hope. The study was performed on 04/15/2017 for indication of edema. Patient measures 62 inches and weighs 105 kg. DIMENSIONS: IVS: 1.1 LV 4.6 LVPW 1.1 LA: 3.9 Aorta 3.2 Ascending aorta 3.6 RV: 3.0 FINDINGS: This study is of rather difficult technical quality. Left ventricle is normal size and grossly normal systolic function, I estimate ejection fraction (EF) around 60-65%. Due to technical limitation of the study, I cannot rule out subtle wall motion abnormalities. Right ventricle also appears normal. Both atria are at least mildly enlarged. Aortic, mitral and tricuspid valve appear grossly normal even though visualization was poor. Pulmonic valve appears normal. No pericardial effusion is noted. Inferior vena cava is normal size. Aortic root is normal, aortic arch and abdominal aorta were not visualized. Doppler interrogation reveals no aortic stenosis or insufficiency. Same applies for mitral valve. There is trace tricuspid insufficiency. Calculated pulmonary artery pressure is in 40s corresponding to moderate pulmonary hypertension. Pulmonic valve is functionally competent. Mitral inflow pattern and tissue Doppler imaging of mitral annulus reveal grade 1 diastolic dysfunction. CONCLUSION: 1. Study is of difficult technical quality. 2. Normal LV size with grossly preserved LV systolic function and grade 1 diastolic dysfunction. 3. No significant valvular disease. 4. Likely normal central venous pressure but moderate pulmonary hypertension. COMMENTS: Subacute bacterial endocarditis (SBE) prophylaxis is not recommended.
[2017-04-15 16:00] VITALS: BP 147/67
[2017-04-15] MEDS: AZITHROMYCIN INJ 500 MG, VIAL MATE ADAPTER 1 EACH in D5W 250 ML IV SCH (16:05)
[2017-04-15] MEDS: CEFTRIAXONE SOD 1 GM in APPROPRIATE DILUENT 1 EA IV SCH (17:16)
[2017-04-15 20:00] VITALS: BP 186/84
[2017-04-15] MEDS: LISINOPRIL 5 MG TAB PO SCH (20:43)
[2017-04-15] MEDS: ENOXAPARIN 40 MG/0.4 ML SYRINGE (J1650) SC SCH (20:44)
[2017-04-15] MEDS: LATANOPROST 0.005% OPHTH SOLN 2.5 ML OU SCH (20:44)
[2017-04-15 23:59] VITALS: BP 177/85
[2017-04-16] VITALS (8 sets, daily range): BP systolic 137–181; BP diastolic 65–86
[2017-04-16] MEDS: hydrALAZINE INJ 20 MG/ML VIAL IV SCH ×3 (00:08→14:57)
[2017-04-16] MEDS: ANEXSIA, NORCO 7.5MG/325MG TABLET(HYDROCODONE/APAP) PO PRN ×2 (00:09→20:43)
[2017-04-16] MEDS: methylPREDNISolone INJ 125 MG/2 ML VIAL (J2930) IV SCH ×2 (01:01→06:39)
[2017-04-16] MEDS: IPRATROPIUM 0.5MG/ALBUTEROL 2.5MG INH SOL UD 3ML (DUONEB)(J7620) NEB SCH ×4 (01:04→20:16)
[2017-04-16 06:08] LABS: BASO % 0.1 % (0.0-1.0); IMMATURE GRANULOCYTE % 0.9 % (0-0); LYMPH # 0.5 10^3/uL (1.5-4.5); LYMPH % 2.5 % (24.0-44.0); MEAN CORPUSCULAR HEMOGLOBIN 29.7 pg (27.0-33.0); MEAN CORPUSCULAR VOLUME 92.8 fl (80.0-96.0); MONO # 0.5 10^3/uL (0.0-0.8); MONO % 2.7 % (0.0-5.0); NEUTROPHILS # 18.5 10^3/uL (1.8-7.7); NEUTROPHILS % 93.8 % (36.0-66.0); PLATELET COUNT, AUTOMATED 344 10^3/uL (150-450); WHITE BLOOD COUNT 19.7 10^3/uL (4.0-10.0)
[2017-04-16 06:31] LABS: ALBUMIN 3.3 GM/DL (3.2-5.2); ALBUMIN/GLOBULIN RATIO 0.87 (1.00-1.93); ALKALINE PHOSPHATASE 73 U/L (45-117); ALT/SGPT 26 U/L (12-78); ANION GAP 8 MEQ/L (8-16); AST/SGOT 7 U/L (7-37); BILIRUBIN,TOTAL 0.1 MG/DL (0.2-1.0); BLOOD UREA NITROGEN 21 MG/DL (7-18); CALCIUM LEVEL 9.2 MG/DL (8.8-10.2); CARBON DIOXIDE LEVEL 31 MEQ/L (21-32); CHLORIDE LEVEL 100 MEQ/L (98-107); CREATININE FOR GFR 0.73 MG/DL (0.55-1.02); GLOMERULAR FILTRATION RATE > 60.0 (>45); GLUCOSE, FASTING 191 MG/DL (80-110); POTASSIUM SERUM 3.4 MEQ/L (3.5-5.1); SODIUM LEVEL 139 MEQ/L (136-145); TOTAL PROTEIN 7.1 GM/DL (6.4-8.2)
[2017-04-16] MEDS ORDERED: hydrALAZINE INJ 20 MG/ML VIAL IV ONE (06:45)
[2017-04-16] MEDS ORDERED: POTASSIUM CHLORIDE 10 MEQ SR TABLET PO ONE (08:00)
[2017-04-16] MEDS: guaiFENesin ER 600 MG TAB PO SCH ×2 (09:03→20:42)
[2017-04-16] MEDS: PANTOPRAZOLE 40MG TAB (PROTONIX) PO SCH (09:04)
[2017-04-16] MEDS: FLUoxetine 20 MG CAP PO SCH (09:04)
[2017-04-16] MEDS: hydroCHLOROthiazide 25 MG TAB PO SCH (09:04)
[2017-04-16] MEDS: BACLOFEN 10 MG TAB PO SCH ×3 (09:04→20:42)
[2017-04-16] MEDS: GABAPENTIN 400 MG CAP PO SCH ×3 (09:04→20:42)
[2017-04-16] MEDS: amLODIPine 5 MG TAB PO SCH (09:05)
[2017-04-16] MEDS: VITAMIN D 1,000 INTERNATIONAL UNITS TABLET PO SCH (09:05)
--- NOTE | 2017-04-16 12:15 | IPNPDOC ---
Subjective Date Seen The patient was seen on 04/16/17. Subjective Chief Complaint/HPI Patient seen and examined at the bedside. States that her respiratory status is improved this AM. Reports a decrease in her cough symptoms, sputum production. Objective Physical Examination General Exam: Positive: Alert, Cooperative, No Acute Distress ENT Exam: Positive: Atraumatic, Mucous membr. moist/pink Neck Exam: Negative: JVD Chest Exam: Positive: Wheezing (decreasing wheezing), Diminished Heart Exam: Positive: Rate Normal, Normal S1, Normal S2 Telemetry: Positive: Sinus Abdomen Exam: Positive: Soft, Negative: Tenderness Extremity Exam: Negative: Tenderness, Swelling Psych Exam: Positive: Oriented x 3 Assessment /Plan Plan/VTE VTE Prophylaxis Ordered?: Yes Plan Acute Hypoxic Failure 2/2 COPD exacerbation Off supplemental oxygen at this time Cont nebs, IV Rocephin, Zithromax, and IV solu-medrol down-titrated Resp panel/Sputum cx unrevealing thus far Patient reports improvement of respiratory status--we will cont to monitor History of Diastolic Dysfunction Stage 1 2D ECHO from 01/2013 notable for Stage 1 DD, preserved EF Repeat 2D ECHO from 04/15 notable for Preserved EF, Stage 1 DD HTN, stable Continue Lisinopril, Norvasc, HCTZ History of Lung Ca S/P resection in 2009--biopsy results notable for moderate to focal poorly differentiated adenocarcinoma No hx of Chemo or Radiation CT chest with contrast with no acute findings Chronic pain Cont Baclofen, gabapentin and [place] prn. GERD Cont PPI. Chronic Normocytic Anemia Hgb stable, no indication for transfusion DVT prophylaxis SC Lovenox. VS, I&O, 24H, Fishbone Vital Signs/I&O Vital Signs Date Time Temp Pulse Resp B/P (MAP) Pulse Ox O2 Delivery O2 Flow Rate FiO2 04/16/17 09:05 88 177/90 04/16/17 08:00 97.1 17 90 Room Air 04/16/17 01:08 2.0 I&O- Last 24 Hours up to 6 AM 04/17/17 06:00 Intake Total 480 ml Balance 480 ml Laboratory Data 24H LABS Laboratory Tests 2 04/16/17 05:21: Immature Granulocyte % (Auto) 0.9H, White Blood Count 19.7H, Red Blood Count 3.77L, Hemoglobin 11.2L, Hematocrit 35.0L, Mean Corpuscular Volume 92.8, Mean Corpuscular Hemoglobin 29.7, Mean Corpuscular Hemoglobin Concent 32.0, Red Cell Distribution Width 15.0H, Platelet Count 344, Neutrophils (%) (Auto) 93.8H, Lymphocytes (%) (Auto) 2.5L, Monocytes (%) (Auto) 2.7, Eosinophils (%) (Auto) 0.0, Basophils (%) (Auto) 0.1, Neutrophils # (Auto) 18.5H, Lymphocytes # (Auto) 0.5L, Monocytes # (Auto) 0.5, Eosinophils # (Auto) 0.0, Basophils # (Auto) 0.0, Immature Granulocyte # (Auto) 0.2H, Nucleated Red Blood Cells % (auto) 0.0, Anion Gap 8, Glomerular Filtration Rate > 60.0, Blood Urea Nitrogen 21H, Creatinine 0.73, Sodium Level 139, Potassium Level 3.4L, Chloride Level 100, Carbon Dioxide Level 31, Calcium Level 9.2, Aspartate Amino Transf (AST/SGOT) 7 , Alanine Aminotransferase (ALT/SGPT) 26, Alkaline Phosphatase 73, Total Bilirubin 0.1L, Total Protein 7.1, Albumin 3.3, Albumin/Globulin Ratio 0.87L CBC/BMP Laboratory Tests 04/16/17 05:21 Red Blood Count 3.77 L, Mean Corpuscular Volume 92.8, Mean Corpuscular Hemoglobin 29.7, Mean Corpuscular Hemoglobin Concent 32.0, Red Cell Distribution Width 15.0 H, Neutrophils (%) (Auto) 93.8 H, Lymphocytes (%) (Auto ) 2.5 L, Monocytes (%) (Auto) 2.7, Eosinophils (%) (Auto) 0.0, Basophils (%) ( Auto) 0.1, Neutrophils # (Auto) 18.5 H, Lymphocytes # (Auto) 0.5 L, Monocytes # (Auto) 0.5, Eosinophils # (Auto) 0.0, Basophils # (Auto) 0.0, Calcium Level 9.2 , Aspartate Amino Transf (AST/SGOT) 7, Alanine Aminotransferase (ALT/SGPT) 26, Alkaline Phosphatase 73, Total Bilirubin 0.1 L, Total Protein 7.1, Albumin 3.3 Microbiology Microbiology 04/14/17 Blood Culture - Preliminary, Resulted No growth after 24 hours . All specim... 04/14/17 Blood Culture - Preliminary, Resulted No growth after 24 hours . All specim... 04/15/17 Gram Stain - Final, Resulted 04/15/17 Sputum Culture, Resulted Pending 04/14/17 Respiratory Virus Panel (PCR) ([facility]) - Final, Complete 04/14/17 Influenza Virus Type A Antigen - Final, Complete 04/14/17 Influenza Virus Type B Antigen - Final, Complete EDWARD BRAVO MD Apr 16, 2017 12:15
[2017-04-16] MEDS: AZITHROMYCIN INJ 500 MG, VIAL MATE ADAPTER 1 EACH in D5W 250 ML IV SCH (16:53)
[2017-04-16] MEDS: CEFTRIAXONE SOD 1 GM in APPROPRIATE DILUENT 1 EA IV SCH (17:56)
[2017-04-16] MEDS: methylPREDNISolone INJ 40 MG/1 ML VIAL (J2920) IV SCH (18:23)
[2017-04-16] MEDS: LISINOPRIL 5 MG TAB PO SCH (20:42)
[2017-04-16] MEDS: LATANOPROST 0.005% OPHTH SOLN 2.5 ML OU SCH (20:43)
[2017-04-16] MEDS: ENOXAPARIN 40 MG/0.4 ML SYRINGE (J1650) SC SCH (20:43)
[2017-04-17] MEDS: IPRATROPIUM 0.5MG/ALBUTEROL 2.5MG INH SOL UD 3ML (DUONEB)(J7620) NEB SCH ×3 (01:33→14:00)
[2017-04-17 04:00] VITALS: BP 130/76
[2017-04-17 05:42] LABS: BASO % 0.1 % (0.0-1.0); EOS % 0.1 % (0.0-3.0); IMMATURE GRANULOCYTE % 1.1 % (0-0); LYMPH # 1.4 10^3/uL (1.5-4.5); LYMPH % 7.8 % (24.0-44.0); MEAN CORPUSCULAR HEMOGLOBIN 30.1 pg (27.0-33.0); MEAN CORPUSCULAR VOLUME 91.1 fl (80.0-96.0); MONO # 1.2 10^3/uL (0.0-0.8); MONO % 6.6 % (0.0-5.0); NEUTROPHILS % 84.3 % (36.0-66.0); PLATELET COUNT, AUTOMATED 354 10^3/uL (150-450); RED CELL DISTRIBUTION WIDTH 14.9 % (11.5-14.5); WHITE BLOOD COUNT 17.8 10^3/uL (4.0-10.0)
[2017-04-17 06:13] LABS: ALBUMIN 3.3 GM/DL (3.2-5.2); ALBUMIN/GLOBULIN RATIO 0.94 (1.00-1.93); ALKALINE PHOSPHATASE 80 U/L (45-117); ALT/SGPT 27 U/L (12-78); ANION GAP 7 MEQ/L (8-16); AST/SGOT 7 U/L (7-37); BILIRUBIN,TOTAL 0.2 MG/DL (0.2-1.0); BLOOD UREA NITROGEN 19 MG/DL (7-18); CALCIUM LEVEL 9.2 MG/DL (8.8-10.2); CARBON DIOXIDE LEVEL 29 MEQ/L (21-32); CHLORIDE LEVEL 102 MEQ/L (98-107); CREATININE FOR GFR 0.67 MG/DL (0.55-1.02); GLOMERULAR FILTRATION RATE > 60.0 (>45); GLUCOSE, FASTING 132 MG/DL (80-110); POTASSIUM SERUM 3.5 MEQ/L (3.5-5.1); SODIUM LEVEL 138 MEQ/L (136-145); TOTAL PROTEIN 6.8 GM/DL (6.4-8.2)
[2017-04-17 08:00] VITALS: BP 138/74
[2017-04-17] MEDS: hydrALAZINE INJ 20 MG/ML VIAL IV SCH ×2 (08:06)
[2017-04-17 08:14] VITALS: BP 138/74
[2017-04-17] MEDS: FLUoxetine 20 MG CAP PO SCH (08:14)
[2017-04-17] MEDS: GABAPENTIN 400 MG CAP PO SCH (08:14)
[2017-04-17] MEDS: VITAMIN D 1,000 INTERNATIONAL UNITS TABLET PO SCH (08:14)
[2017-04-17] MEDS: methylPREDNISolone INJ 40 MG/1 ML VIAL (J2920) IV SCH (08:14)
[2017-04-17] MEDS: amLODIPine 5 MG TAB PO SCH (08:14)
[2017-04-17] MEDS: PANTOPRAZOLE 40MG TAB (PROTONIX) PO SCH (08:14)
[2017-04-17] MEDS: BACLOFEN 10 MG TAB PO SCH (08:15)
[2017-04-17] MEDS: hydroCHLOROthiazide 25 MG TAB PO SCH (08:15)
[2017-04-17] MEDS: guaiFENesin ER 600 MG TAB PO SCH (08:15)
[2017-04-17] MEDS: ANEXSIA, NORCO 7.5MG/325MG TABLET(HYDROCODONE/APAP) PO PRN (08:23)
[2017-04-17 12:00] VITALS: BP 162/88
[2017-04-17 12:10] VITALS: BP 144/78
[2017-04-17] MEDS ORDERED: PRED10TA2 PO (12:17)
[2017-04-17] MEDS ORDERED: CEFD1CAP8 PO (12:17)
--- NOTE | 2017-04-17 16:09 | DS.PDOC ---
Discharge Summary General Date of Admission Apr 14, 2017 at 15:59 Date of Discharge 04/17/17 Discharge Summary PROCEDURES PERFORMED DURING STAY: None. ADMITTING/DISCHARGE DIAGNOSES: COPD exacerbation History of Diastolic Dysfunction Stage 1 History of Lung Ca COMPLICATIONS/CHIEF COMPLAINT: Copd Exacerbation. HISTORY OF PRESENT ILLNESS: . 66-year-old female with past medical history of lung cancer status post resection in 2009, hypertension, dyslipidemia, depression, anxiety, DCHF, and COPD presented to the ER with a chief complaint of increased cough with sputum production. The patient states that she had tried her nebulizer treatments at home but did not have an improvement of her breathing. She denied any acute complaints of fevers, chills, chest pain, palpitations, abdominal pain, or any nausea/vomiting/diarrhea. The hospitalist team was called for further evaluation and management. During hospitalization, chest x-ray and CT revealed no acute findings. The patient was treated with nebulizer therapy, IV Rocephin/Zithromax, and IV steroid therapy. The patient's respiratory panel and sputum cultures were unrevealing. The patient's respiratory status significantly improved with the aforementioned therapy. The patient was weaned off supplemental oxygen, and states that she is back to her breathing baseline. At this time, the patient states that she is feeling much better and is eager to return home. 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 In addition, the patient has been advised to complete her trial of antibiotic and prednisone taper. She has been advised to return to the ER for worsening of her symptoms or any acute emergencies. DISCHARGE MEDICATIONS: Please see below. ALLERGIES: Please see below. PHYSICAL EXAMINATION ON DISCHARGE: VITAL SIGNS: Please see below. General Exam: Positive: Alert, Cooperative, No Acute Distress ENT Exam: Positive: Atraumatic, Mucous membr. moist/pink Neck Exam: Negative: JVD Chest Exam: Positive: Diminished Heart Exam: Positive: Rate Normal, Normal S1, Normal S2 Telemetry: Positive: Sinus Abdomen Exam: Positive: Soft, Negative: Tenderness Extremity Exam: Negative: Tenderness, Swelling Psych Exam: Positive: Oriented x 3 LABORATORY DATA: Please see below. IMAGING: Clinical: Cough. Dyspnea. Technique: PA and lateral. Comparison: 04/11/2017. Findings: Mild interstitial edema cannot be excluded. Trace basilar atelectasis requires correlation. No focal consolidation, effusion, or pneumothorax. Impression: Cannot exclude mild pulmonary vascular congestion/interstitial edema and trace basilar atelectasis. Clinical: Shortness of breath with history of lung cancer. Technique: Axial contrast enhanced images from the thoracic inlet to the upper abdomen using 100 ml Isovue 370 intravenous contrast material with coronal and sagittal re-formations. Comparison: 09/22/2016. Findings: Evidence for prior partial right lobectomy. Right hilar and subpleural postsurgical changes are appreciated along with right-sided subpleural chronic scarring. Trace left basilar atelectasis is appreciated. No acute consolidation, obvious significant nodule or mass lesion. No pleural effusion. No pneumothorax. Tracheobronchial tree is patent. No axillary, hilar, or mediastinal adenopathy. Mild atherosclerotic changes to the thoracic aorta and coronary arteries noted without aortic aneurysm. No cardiomegaly or pericardial effusion. Limited upper abdomen demonstrates normal bilateral adrenal glands and evidence for prior cholecystectomy. Impression: Postsurgical and chronic-appearing changes primarily involving the right hemithorax which are similar to 09/22/2016. Trace left basilar atelectasis. PROGNOSIS: Fair ACTIVITY: As tolerated. DIET: . 2 g low sodium diet DISCHARGE PLAN: DISPOSITION: 01 Home, Self-Care. DISCHARGE INSTRUCTIONS: I have advised the patient to follow-up with her primary care physician within one week, and her dip tube assembler machine within 2-4 weeks. In addition, the patient has been advised to complete her trial of antibiotic and prednisone taper. She has been advised to return to the ER for worsening of her symptoms or any acute emergencies. DISCHARGE CONDITION: Stable. TIME SPENT ON DISCHARGE: Greater than 30 minutes. Vital Signs/I&Os Vital Signs Date Time Temp Pulse Resp B/P (MAP) Pulse Ox O2 Delivery O2 Flow Rate FiO2 04/17/17 12:10 144/78 (100) 04/17/17 12:00 96.5 104 18 90 Room Air 04/16/17 01:08 2.0 Laboratory Data Labs 24H Laboratory Tests 2 04/17/17 05:22: Immature Granulocyte % (Auto) 1.1H, White Blood Count 17.8H, Red Blood Count 3.69L, Hemoglobin 11.1L, Hematocrit 33.6L, Mean Corpuscular Volume 91.1, Mean Corpuscular Hemoglobin 30.1, Mean Corpuscular Hemoglobin Concent 33.0, Red Cell Distribution Width 14.9H, Platelet Count 354, Neutrophils (%) (Auto) 84.3H, Lymphocytes (%) (Auto) 7.8L, Monocytes (%) (Auto) 6.6H, Eosinophils (%) (Auto) 0.1, Basophils (%) (Auto) 0.1, Neutrophils # (Auto) 15.0H, Lymphocytes # (Auto) 1.4L, Monocytes # (Auto) 1.2H, Eosinophils # (Auto) 0.0, Basophils # (Auto) 0.0 , Immature Granulocyte # (Auto) 0.2H, Nucleated Red Blood Cells % (auto) 0.0, Anion Gap 7L, Glomerular Filtration Rate > 60.0, Blood Urea Nitrogen 19H, Creatinine 0.67, Sodium Level 138, Potassium Level 3.5, Chloride Level 102, Carbon Dioxide Level 29, Calcium Level 9.2, Aspartate Amino Transf (AST/SGOT) 7 , Alanine Aminotransferase (ALT/SGPT) 27, Alkaline Phosphatase 80, Total Bilirubin 0.2#, Total Protein 6.8, Albumin 3.3, Albumin/Globulin Ratio 0.94L CBC/BMP Laboratory Tests 04/17/17 05:22 Red Blood Count 3.69 L, Mean Corpuscular Volume 91.1, Mean Corpuscular Hemoglobin 30.1, Mean Corpuscular Hemoglobin Concent 33.0, Red Cell Distribution Width 14.9 H, Neutrophils (%) (Auto) 84.3 H, Lymphocytes (%) (Auto ) 7.8 L, Monocytes (%) (Auto) 6.6 H, Eosinophils (%) (Auto) 0.1, Basophils (%) ( Auto) 0.1, Neutrophils # (Auto) 15.0 H, Lymphocytes # (Auto) 1.4 L, Monocytes # (Auto) 1.2 H, Eosinophils # (Auto) 0.0, Basophils # (Auto) 0.0, Calcium Level 9.2, Aspartate Amino Transf (AST/SGOT) 7, Alanine Aminotransferase (ALT/SGPT) 27 , Alkaline Phosphatase 80, Total Bilirubin 0.2 #, Total Protein 6.8, Albumin 3.3 Microbiology Microbiology 04/14/17 Blood Culture - Preliminary, Resulted No Growth after 72 hours. All specime... 04/14/17 Blood Culture - Preliminary, Resulted No Growth after 72 hours. All specime... 04/15/17 Gram Stain - Final, Complete 04/15/17 Sputum Culture - Final, Complete Yeast Like Organism 04/14/17 Respiratory Virus Panel (PCR) ([facility]) - Final, Complete 04/14/17 Influenza Virus Type A Antigen - Final, Complete 04/14/17 Influenza Virus Type B Antigen - Final, Complete Discharge Medications Scheduled (Klor-Con Sprinkle) 8 Meq Cap, 16 MEQ PO DAILY, (Reported) Amlodipine Besylate (Amlodipine Besylate) 5 Mg Tab, 5 MG PO DAILY, (Reported) Baclofen (Baclofen) 10 Mg Tab, 10 MG PO TID, (Reported) Cefdinir (Cefdinir) 300 Mg Cap, 300 MG PO BID Cholecalciferol (Vitamin D) 5,000 Unit Tab, 5,000 UNIT PO DAILY, (Reported) Fluoxetine Hcl (Fluoxetine HCl) 40 Mg Cap, 40 MG PO DAILY, (Reported) Fluticasone/Vilanterol (Breo Ellipta 200-25 Mcg/INH) 1 Inh Inh, 1 PUFF INH DAILY , (Reported) Gabapentin (Gabapentin) 400 Mg Cap, 400 MG PO TID, (Reported) Guaifenesin (Mucinex) 600 Mg Tab, 600 MG PO BID, (Reported) Hydrochlorothiazide (Hydrochlorothiazide) 25 Mg Tab, 25 MG PO DAILY, (Reported) Latanoprost (Latanoprost) 50 Drop/2.5 Ml Soln, 1 DROP OU QHS, (Reported) Lisinopril (Lisinopril) 5 Mg Tab, 5 MG PO QHS, (Reported) Pantoprazole Sodium (Pantoprazole Sodium) 40 Mg Tab, 40 MG PO DAILY, (Reported) Prednisone (Prednisone) 10 Mg Tab, 10 MG PO TAPER Take 4 tabs daily x 3 days, then 3 tabs daily x 3 days, then 2 tabs daily x 3 days, then 1 tab daily x 3 days and stop Zolpidem Tartrate (Ambien) 10 Mg Tab, 10 MG PO QHS, (Reported) Scheduled PRN (Oxycodone/Acetaminophen 10-325 mg) 1 Tab Tab, 1 TAB PO TID PRN for PAIN, ( Reported) (Annalise-[place] Plus Night C 7.8-6.25-10-500 mg) 1 Tab Tab, 1 TAB PO QHS PRN for COUGH/COLD, (Reported) Albuterol Sulfate (Ventolin Hfa) 108 Mcg/Act Aer, 2 PUFFS INH QID PRN for SHORTNESS OF BREATH, (Reported) Sumatriptan Succinate (Sumatriptan Succinate) 100 Mg Tab, 100 MG PO PRN PRN for MIGRAINE, (Reported) Allergies Coded Allergies: Pregabalin (Verified Allergy, Mild, 04/04/17) Fentanyl (Verified Allergy, Unknown, 04/04/17) Benzodiazepines (Verified Adverse Reaction, Intermediate, DELIRIUM, ) EDWARD BRAVO MD Apr 17, 2017 16:09
== END 2017-04-17 15:27 | disposition home or self-care (01) | DRG 192 ==
LOC: M ED 11:31 → M ED INP 15:59 → M PCU 20:11
PROVIDERS: ADMIT Hospitalist; ATTEND Internal Medicine
DX: J44.1 Chronic obstructive pulmonary disease with (acute) exacerbation (principal); I12.9 Hypertensive chronic kidney disease with stage 1 through stage 4 chronic kidney disease, or unspecified chronic kidney disease; F32.9 Major depressive disorder, single episode, unspecified; F41.9 Anxiety disorder, unspecified; N18.2 Chronic kidney disease, stage 2 (mild); Z90.49 Acquired absence of other specified parts of digestive tract; Z90.2 Acquired absence of lung [part of]; Z87.891 Personal history of nicotine dependence; K21.9 Gastro-esophageal reflux disease without esophagitis; Z79.899 Other long term (current) drug therapy; Z88.8 Allergy status to other drugs, medicaments and biological substances; Z85.118 Personal history of other malignant neoplasm of bronchus and lung

== ENCOUNTER 2017-05-02 00:23 | Observation (INO) | payer MEDICARE, BC, OTHER ==
[~2017-05-02] VITALS: Ht 157.5 cm; Wt 102.7 kg
[~2017-05-02 00:23] MED LIST changes: +ALKATAB24 PO; +BREO1INH3 INH; +CEFD1CAP8 PO; +LATA5OPD OU; +OXYC1TAB16 PO; +VENTAER INH
[2017-05-02] MEDS ORDERED: CIPR-303 PO (00:40)
[2017-05-02 01:03] LABS: BASO # 0.1 10^3/uL (0.0-0.2); BASO % 0.2 % (0.0-1.0); LYMPH # 2.7 10^3/uL (1.5-4.5); LYMPH % 12.4 % (24.0-44.0); MEAN CORPUSCULAR HEMOGLOBIN 30.5 pg (27.0-33.0); MEAN CORPUSCULAR VOLUME 92.6 fl (80.0-96.0); MONO # 1.3 10^3/uL (0.0-0.8); MONO % 5.9 % (0.0-5.0); NEUTROPHILS # 17.1 10^3/uL (1.8-7.7); NEUTROPHILS % 80.5 % (36.0-66.0); PLATELET COUNT, AUTOMATED 388 10^3/uL (150-450); RED CELL DISTRIBUTION WIDTH 14.4 % (11.5-14.5); WHITE BLOOD COUNT 21.3 10^3/uL (4.0-10.0)
[2017-05-02] MEDS ORDERED: IPRATROPIUM 0.5MG/ALBUTEROL 2.5MG INH SOL UD 3ML (DUONEB)(J7620) NEB ONE ×2 (01:15→01:30)
[2017-05-02 01:33] LABS: ANION GAP 7 MEQ/L (8-16); BLOOD UREA NITROGEN 18 MG/DL (7-18); CALCIUM LEVEL 9.6 MG/DL (8.8-10.2); CARBON DIOXIDE LEVEL 31 MEQ/L (21-32); CHLORIDE LEVEL 99 MEQ/L (98-107); CREATININE FOR GFR 0.81 MG/DL (0.55-1.02); GLOMERULAR FILTRATION RATE > 60.0 (>45); GLUCOSE, FASTING 99 MG/DL (80-110); POTASSIUM SERUM 3.5 MEQ/L (3.5-5.1); SODIUM LEVEL 137 MEQ/L (136-145)
[2017-05-02 01:44] LABS: ABG BASE EXCESS 1.5 (-2.0-2.0); ABG HCO3 25.8 MEQ/L (22.0-26.0); ABG PARTIAL PRESSURE CO2 39.5 mmHg (35.0-45.0); ABG STANDARD HCO3 25.7 MEQ/L (22.0-26.0); ABG pH (ARTERIAL) 7.433 UNITS (7.350-7.450)
[2017-05-02] MEDS ORDERED: ISOVUE-370 76% 100ML VIAL (Q9967) As Ordered ONE (02:19)
--- NOTE | 2017-05-02 03:20 | REPUSA ---
CLINICAL HISTORY: Pain, exclude PE. TECHNIQUE: Multiple incremental axial, coronal and oblique images are obtained from the thoracic inle t to the upper abdomen. Intravenous contrast material was administered as per pulmonary embolism prot ocol. COMMENTS: Comparison to prior exam on 04/14/2017. Further callus formation at the level of the subacute healing fractures of the right second, third, f ourth and fifth ribs. Associated bilateral basilar atelectatic airspace disease of the lower lobes. There is excellent opacification of pulmonary arterial system without evidence for pulmonary embolism . Aorta is of normal caliber without evidence for dissection or aneurysm. There is no evidence of pleural or parenchymal mass. There are no pleural effusions. There is no evid ence of hilar or mediastinal lymphadenopathy. The heart and great vessels are within normal limits. Images of the upper abdomen demonstrate no evidence of adrenal mass. The bony structures are free of lytic or blastic lesions. Multilevel degenerative changes are seen in volving the visualized thoracolumbar spine. Scattered calcifications are seen involving the aorta and major branches compatible with atherosclero sis. Prior cholecystectomy. IMPRESSION: No evidence for pulmonary embolism. Further callus formation at the level of the subacute healing fractures of the right second, third, f ourth and fifth ribs. Interval appearance of bilateral basilar subsegmental atelectatic airspace disease of the lower lobes . Prior cholecystectomy. Thank you for your kind referral of this patient.
[2017-05-02] MEDS ORDERED: dexameTHASONE 20 MG/5 ML VIAL (J1100) IV ONE (04:00)
[2017-05-02] MEDS ORDERED: PROT1TAB2 PO (04:24)
[2017-05-02] MEDS ORDERED: MUCI30TA5 PO (04:24)
[2017-05-02] MEDS ORDERED: CIPR500T3 PO (04:24)
[2017-05-02] MEDS ORDERED: ADV250INH INH (04:24)
[2017-05-02] MEDS ORDERED: LATA5OPD OU (04:41)
--- NOTE | 2017-05-02 05:31 | HPEPDOC ---
[facility] Medical History & Physical Date of Admission May 02, 2017 History and Physical PRIMARY CARE PROVIDER: Dr. Gamboa ATTENDING: Dr. Joyce Parmar CHIEF COMPLAINT: Shortness of breath HISTORY OF PRESENT ILLNESS: This is a 66-year-old female past history of COPD, obstructive sleep apnea on 2 L home O2 at night, hypertension, history of lung cancer status post resection 2009, migraines, Chiari formation s/p decompression 2007, chronic leukocytosis who presents complaining of shortness of breath. Patient states she has a lot of grandkids around who have upper respiratory tract infections. Patient states that for the past week she's had increased dyspnea and a productive cough of clear sputum. Denies any fevers or chills. No chest pain/palpitations. Patient denies nausea/vomiting/abdominal pain. Patient states she followed up with her primary care physician who recently started her on ciprofloxacin for her upper respiratory tract infection. PAST MEDICAL HISTORY: As per HPI PAST SURGICAL HISTORY: History of lumbar and cervical spine fusion, history of T 12 compression fracture, right upper lobe lobectomy, cholecystectomy, Chiari formation decompression, , carpal tunnel SOCIAL HISTORY: History of tobacco per day tobacco abuse however quit 10 years ago. No alcohol or illicit drug use. FAMILY HISTORY: History of congestive heart failure ALLERGIES: Please see below. REVIEW OF SYSTEMS: HEENT: Denies sore throat/headache CARDIOVASCULAR: Denies chest pain/palpitations RESPIRATORY: + shortness of breath/cough GASTROINTESTINAL: denies nausea/vomiting GENITOURINARY: Denies dysuria/urinary urgency. MUSCULOSKELETAL: Denies myalgias/arthralgias NEUROLOGICAL: Denies any focal weakness HOME MEDICATIONS: Please see below. PHYSICAL EXAMINATION: Vitals: (see below) General: No acute distress, laying comfortably in bed. HEENT: Moist mucous membranes. Neck: No JVD or lymphadenopathy Cardiac: RRR, No murmurs Pulm: Minimal coarse crackles b/l bases. No wheezing, rhonchi. No conversational dyspnea. Abd: NT/ND + BS Ext: No edema or cyanosis LABORATORY DATA: See below. IMAGING: CTA Chest 05/02/17 IMPRESSION: No evidence for pulmonary embolism. Further callus formation at the level of the subacute healing fractures of the right second, third, fourth and fifth ribs. Interval appearance of bilateral basilar subsegmental atelectatic airspace disease of the lower lobes. Prior cholecystectomy. MICROBIOLOGY: Please see below. ASSESSMENT/PLAN: 1. Acute COPD exacerbation- patient recently admitted last month with a COPD exacerbation. States she has sick contacts at home. We'll check respiratory panel/sputum culture. Nebs, steroids. Does not appear to have an infectious component at this time. We'll hold antibiotics for now. Her dyspnea significantly improved in the ED. F/u with Dr. Holliday outpt. 2. Chronic leukocytosis- likely reactive, and secondary to steroids as well. Will need outpatient follow-up. 3. Hypertension- controlled continue home meds 4. History of depression/anxiety continue home meds 5. History of CK D stage II follows up with Dr. Ware 6. History of lung cancer status post right upper lobe lobectomy in 2009- outpatient follow-up 7. H/o chiari formation s/p decompression 2007. 8. History of rib fractures with subacute healing noted on CTA chest DVT prophylaxis SCDs Patient will be followed by Dr. Joyce Parmar starting 05/02/17 at 7 AM. Vital Signs Vital Signs Date Time Temp Pulse Resp B/P (MAP) Pulse Ox O2 Delivery O2 Flow Rate FiO2 05/02/17 03:38 99 99 05/02/17 03:36 154/78 (103) 05/02/17 01:43 23 05/02/17 00:23 96.3 Room Air Laboratory Data Labs 24H Laboratory Tests 2 05/02/17 00:54: Anion Gap 7L, Glomerular Filtration Rate > 60.0, Blood Urea Nitrogen 18, Creatinine 0.81, Sodium Level 137, Potassium Level 3.5, Chloride Level 99, Carbon Dioxide Level 31, Calcium Level 9.6, Total Creatine Kinase 67, Creatine Kinase MB 1.8, Creatine Kinase MB Relative Index 2.68, Troponin I < 0.02 05/02/17 00:55: Immature Granulocyte % (Auto) 1.0H, White Blood Count 21.3H, Red Blood Count 3.93L, Hemoglobin 12.0, Hematocrit 36.4, Mean Corpuscular Volume 92.6, Mean Corpuscular Hemoglobin 30.5, Mean Corpuscular Hemoglobin Concent 33.0, Red Cell Distribution Width 14.4, Platelet Count 388, Neutrophils (%) (Auto) 80.5H, Lymphocytes (%) (Auto) 12.4L, Monocytes (%) (Auto) 5.9H, Eosinophils (%) (Auto) 0.0, Basophils (%) (Auto) 0.2, Neutrophils # (Auto) 17.1H, Lymphocytes # (Auto) 2.7, Monocytes # (Auto) 1.3H, Eosinophils # (Auto) 0.0, Basophils # (Auto) 0.1, Immature Granulocyte # (Auto) 0.2H, Nucleated Red Blood Cells % (auto) 0.0 05/02/17 01:26: Blood Gas Bicarbonate Standard 25.7, Arterial Blood pH 7.433, Arterial Blood Partial Pressure CO2 39.5, Arterial Blood Partial Pressure O2 62.0L, Arterial Blood Total CO2 27.0, Arterial Blood HCO3 25.8, Arterial Blood Base Excess 1.5, Arterial Blood Oxygen Saturation 92.0L CBC/BMP Laboratory Tests 05/02/17 00:54 Calcium Level 9.6, Total Creatine Kinase 67 05/02/17 00:55 Red Blood Count 3.93 L, Mean Corpuscular Volume 92.6, Mean Corpuscular Hemoglobin 30.5, Mean Corpuscular Hemoglobin Concent 33.0, Red Cell Distribution Width 14.4, Neutrophils (%) (Auto) 80.5 H, Lymphocytes (%) (Auto) 12.4 L, Monocytes (%) (Auto) 5.9 H, Eosinophils (%) (Auto) 0.0, Basophils (%) ( Auto) 0.2, Neutrophils # (Auto) 17.1 H, Lymphocytes # (Auto) 2.7, Monocytes # ( Auto) 1.3 H, Eosinophils # (Auto) 0.0, Basophils # (Auto) 0.1 Microbiology Microbiology 05/02/17 Blood Culture, Received Pending Home Medications Scheduled (Ceasar Lara) 8 Meq Cap, 8 MEQ PO DAILY Amlodipine Besylate (Amlodipine Besylate) 5 Mg Tab, 5 MG PO DAILY Ciprofloxacin HCl (Ciprofloxacin HCl) 500 Mg Tab, 500 MG PO BID Fluoxetine Hcl (Fluoxetine HCl) 40 Mg Cap, 40 MG PO DAILY Gabapentin (Gabapentin) 400 Mg Cap, 400 MG PO TID Hydrochlorothiazide (Hydrochlorothiazide) 25 Mg Tab, 25 MG PO DAILY Latanoprost (Latanoprost) 50 Drop/2.5 Ml Soln, 1 DROP OU QHS Lisinopril (Lisinopril) 5 Mg Tab, 5 MG PO QHS Pantoprazole Sodium Sesquihydr (Protonix) 40 Mg Tab, 40 MG PO DAILY Salmeterol/Fluticasone (Advair Diskus 250-50 Mcg/Dose) 14 Puff/Inhaler Aerp, 1 PUFF INH BID Zolpidem Tartrate (Ambien) 10 Mg Tab, 10 MG PO QHS Scheduled PRN (Oxycodone/Acetaminophen 10-325 mg) 1 Tab Tab, 1 TAB PO TID PRN for PAIN (Mucinex Dm 30-600 mg) 1 Tab Tab, 1 TAB PO Q12H PRN for CONGESTION Albuterol Sulfate (Ventolin Hfa) 108 Mcg/Act Aer, 2 PUFFS INH QID PRN for SHORTNESS OF BREATH Baclofen (Baclofen) 10 Mg Tab, 10 MG PO TID PRN for MUSCLE SPASMS Sumatriptan Succinate (Sumatriptan Succinate) 100 Mg Tab, 100 MG PO ASDIRECTED PRN for MIGRAINE Allergies Coded Allergies: Pregabalin (Verified Allergy, Mild, 05/02/17) Fentanyl (Verified Allergy, Unknown, 05/02/17) Benzodiazepines (Verified Adverse Reaction, Intermediate, DELIRIUM, ) MIRA VALERA MD May 02, 2017 05:31
[2017-05-02] MEDS ORDERED: BACLOFEN 10 MG TAB PO PRN (05:45)
[2017-05-02] MEDS ORDERED: SUMAtriptan SUCCINATE 25 MG TAB PO PRN (05:45)
[2017-05-02] MEDS ORDERED: ALBUTEROL SULFATE 2.5 MG/0.5 ML INH NEB SOLN INH PRN (05:45)
--- NOTE | 2017-05-02 07:11 | REP ---
Portable chest, 01:16 a.m., 05/02/2017, single AP view, patient sitting: Comparison is 06/14/2016. Lung goff are clear. Cardiac size is normal. The bartolo, mediastinum, and bony thorax are unremarkable. There is a cervical spine stabilization plate, unchanged. Impression: Essentially negative portable chest. Signed by Jose Jackson MD 05/02/2017 07:03 A
[2017-05-02] MEDS: amLODIPine 5 MG TAB PO SCH (08:18)
[2017-05-02] MEDS: PANTOPRAZOLE 40MG TAB (PROTONIX) PO SCH (08:18)
[2017-05-02] MEDS: GABAPENTIN 400 MG CAP PO SCH ×3 (08:18→20:02)
[2017-05-02] MEDS: HEPARIN SOD (PORCINE) 5000 UNITS/ML VIAL SQ SCH ×2 (08:19→20:02)
[2017-05-02] MEDS: IPRATROPIUM 0.5MG/ALBUTEROL 2.5MG INH SOL UD 3ML (DUONEB)(J7620) NEB SCH ×5 (08:30→23:36)
[2017-05-02] MEDS: AZITHROMYCIN INJ 500 MG, VIAL MATE ADAPTER 1 EACH in D5W 250 ML IV SCH (08:40)
[2017-05-02] MEDS: FLUoxetine 20 MG CAP PO SCH (08:40)
[2017-05-02 10:00] VITALS: BP 189/93
[2017-05-02] MEDS: ADVAIR HFA 115/21MCG INHALER INH SCH ×2 (10:57→20:18)
[2017-05-02] MEDS: methylPREDNISolone INJ 125 MG/2 ML VIAL (J2930) IV SCH ×2 (11:29→20:01)
[2017-05-02 12:00] VITALS: BP 162/82
--- NOTE | 2017-05-02 12:31 | ECGEPIP ---
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
--- NOTE | 2017-05-02 13:09 | IPNPDOC ---
Text Note Date of Service The patient was seen on 05/02/17. NOTE No acute events overnight. Admitted overnight. Reported improved respiration. Denied chest pain, n/v/diarrhea. Cough with clear sputum PHYSICAL EXAMINATION: General: No acute distress, obese HEENT: Moist mucous membranes. Neck: No JVD or lymphadenopathy Cardiac: RRR, No murmurs Pulm: Minimal coarse crackles b/l bases. mild b/l wheezing, rhonchi. No conversational dyspnea. Abd: NT/ND + BS Ext: No edema or cyanosis ASSESSMENT/PLAN: 66yoF underlying h/o lung cancer recection [address] Lopez, HTN, Depression, Anxiety, COPD, Seasonal Allergies, migraines, h/o closed rib fratures, chiari malformation, CHF, CKD stage 2 admitted for sob 2/2 reactive airway disease possible COPD exacerbation 1. Acute COPD exacerbation- patient recently admitted last month with a COPD exacerbation. States she has sick contacts at home. We'll check respiratory panel/sputum culture. advair, Nebs, steroids. Does not appear to have an infectious component at this time. azithromycin for now. Her dyspnea significantly improved in the ED. F/u with Dr. Holliday outpt. taper steroid 2. Chronic leukocytosis- likely reactive, and secondary to steroids as well. Will need outpatient follow-up. 3. Hypertension- controlled continue bp medication, lisinopril increased 4. History of depression/anxiety continue home meds 5. History of CK D stage II follows up with Dr. Ware, f/u BUN Cr 6. History of lung cancer status post right upper lobe lobectomy in 2009- outpatient follow-up 7. H/o chiari formation s/p decompression 2007. 8. History of rib fractures with subacute healing noted on CTA chest DVT prophylaxis SCDs, heparin SQ Dispo steroid taper, clinical improvement VS,Fishbone, I+O VS, Fishbone, I+O Laboratory Tests 05/02/17 00:54 Calcium Level 9.6, Total Creatine Kinase 67 05/02/17 00:55 Red Blood Count 3.93 L, Mean Corpuscular Volume 92.6, Mean Corpuscular Hemoglobin 30.5, Mean Corpuscular Hemoglobin Concent 33.0, Red Cell Distribution Width 14.4, Neutrophils (%) (Auto) 80.5 H, Lymphocytes (%) (Auto) 12.4 L, Monocytes (%) (Auto) 5.9 H, Eosinophils (%) (Auto) 0.0, Basophils (%) ( Auto) 0.2, Neutrophils # (Auto) 17.1 H, Lymphocytes # (Auto) 2.7, Monocytes # ( Auto) 1.3 H, Eosinophils # (Auto) 0.0, Basophils # (Auto) 0.1 Vital Signs Date Time Temp Pulse Resp B/P (MAP) Pulse Ox O2 Delivery O2 Flow Rate FiO2 05/02/17 10:00 97.0 110 21 189/93 (125) 94 Nasal Cannula 2.0 I&O- Last 24 Hours up to 6 AM 05/03/17 06:00 Intake Total 555 ml Balance 555 ml WILL BOURGEOIS MD May 02, 2017 13:09
[2017-05-02] MEDS: LISINOPRIL 5 MG TAB PO SCH ×2 (13:44→20:02)
[2017-05-02 14:00] VITALS: BP 187/86
[2017-05-02] MEDS: PERCOCET 5MG/325MG TAB PO PRN (16:27)
[2017-05-02 18:00] VITALS: BP 140/83
[2017-05-02] MEDS ORDERED: LISINOPRIL 5 MG TAB PO SCH (21:00)
[2017-05-02] MEDS ORDERED: zolPIDEM TARTRATE 10MG TAB PO SCH (21:00)
[2017-05-02 22:00] VITALS: BP 156/81
[2017-05-03 02:00] VITALS: BP 143/81
[2017-05-03] MEDS: IPRATROPIUM 0.5MG/ALBUTEROL 2.5MG INH SOL UD 3ML (DUONEB)(J7620) NEB SCH ×3 (03:18→11:30)
[2017-05-03] MEDS: methylPREDNISolone INJ 125 MG/2 ML VIAL (J2930) IV SCH ×2 (04:33→11:35)
[2017-05-03] MEDS: PERCOCET 5MG/325MG TAB PO PRN (05:36)
[2017-05-03 05:56] LABS: BASO % 0.1 % (0.0-1.0); IMMATURE GRANULOCYTE % 1.3 % (0-0); LYMPH # 0.9 10^3/uL (1.5-4.5); MEAN CORPUSCULAR HEMOGLOBIN 30.2 pg (27.0-33.0); MEAN CORPUSCULAR HGB CONC 32.7 g/dl (32.0-36.5); MEAN CORPUSCULAR VOLUME 92.3 fl (80.0-96.0); MONO # 1.2 10^3/uL (0.0-0.8); MONO % 5.4 % (0.0-5.0); NEUTROPHILS # 19.6 10^3/uL (1.8-7.7); NEUTROPHILS % 89.2 % (36.0-66.0); PLATELET COUNT, AUTOMATED 343 10^3/uL (150-450); RED CELL DISTRIBUTION WIDTH 14.8 % (11.5-14.5)
[2017-05-03 06:00] VITALS: BP 142/85
[2017-05-03 06:13] LABS: ANION GAP 6 MEQ/L (8-16); BLOOD UREA NITROGEN 19 MG/DL (7-18); CALCIUM LEVEL 9.2 MG/DL (8.8-10.2); CARBON DIOXIDE LEVEL 31 MEQ/L (21-32); CHLORIDE LEVEL 101 MEQ/L (98-107); CREATININE FOR GFR 0.74 MG/DL (0.55-1.02); GLOMERULAR FILTRATION RATE > 60.0 (>45); GLUCOSE, FASTING 145 MG/DL (80-110); MAGNESIUM LEVEL 2.1 MG/DL (1.8-2.4); POTASSIUM SERUM 4.2 MEQ/L (3.5-5.1); SODIUM LEVEL 138 MEQ/L (136-145)
[2017-05-03] MEDS: ADVAIR HFA 115/21MCG INHALER INH SCH (07:41)
[2017-05-03] MEDS: FLUoxetine 20 MG CAP PO SCH (08:34)
[2017-05-03] MEDS: PANTOPRAZOLE 40MG TAB (PROTONIX) PO SCH (08:34)
[2017-05-03] MEDS: HEPARIN SOD (PORCINE) 5000 UNITS/ML VIAL SQ SCH (08:34)
[2017-05-03] MEDS: GABAPENTIN 400 MG CAP PO SCH (08:34)
[2017-05-03 08:35] VITALS: BP 128/75
[2017-05-03] MEDS: AZITHROMYCIN INJ 500 MG, VIAL MATE ADAPTER 1 EACH in D5W 250 ML IV SCH (08:35)
[2017-05-03] MEDS: LISINOPRIL 5 MG TAB PO SCH (08:35)
[2017-05-03] MEDS: amLODIPine 5 MG TAB PO SCH (08:35)
[2017-05-03 10:14] VITALS: BP 122/80
[2017-05-03] MEDS ORDERED: AZIT500T2 PO (12:12)
[2017-05-03] MEDS ORDERED: PRED10TA2 PO (12:12)
[2017-05-03 14:00] VITALS: BP 137/62
--- NOTE | 2017-05-03 16:05 | DSES ---
DATE OF ADMISSION: 05/02/2017 DATE OF DISCHARGE: 05/03/2017 REST ROOM MAID: Dr. Holliday PRIMARY CARE PROVIDER: Dr. Gamboa FINAL DIAGNOSES: 1. Acute chronic obstructive pulmonary disease (COPD) exacerbation. 2. Viral bronchitis. 3. Leukocytosis. 4. Hypertension. 5. Depression/anxiety. 6. Chronic kidney disease (CKD), stage II. 7. History of lung cancer status post right upper lobectomy in 2009. 8. History of Chiari malformation. 9. History of rib fracture. HISTORY OF PRESENT ILLNESS: This is a 66-year-old female patient with underlying medical history of chronic obstructive pulmonary disease (COPD), obstructive sleep apnea on two liters of oxygen at home at night, hypertension, obesity, history of lung cancer status post resection in 2009, migraine, Chiari malformation status post decompression in 2007, chronic leukocytosis who presented with complaints of shortness of breath. The patient stated having a lot of grandchildren in the house with upper respiratory tract infection. States that she has for the past week increased dyspnea and productive cough or clear sputum. Denies any fevers, chills, chest pain, pressure or discomfort. Denies any nausea, vomiting, abdominal pain. The patient was given ciprofloxacin for her upper respiratory tract infection. HOSPITAL COURSE: The patient was given Solu-Medrol, nebulizer treatment. Respiratory panel has been negative. Blood culture has been negative. The patient has been monitored overnight in the hospital. Clinical condition progressively improved, currently back to baseline. Currently, the patient is tolerating oral, back to baseline, saturating well on room air, ready for discharge home for further care as outpatient. VITAL SIGNS: Temperature 96.9, pulse 112, respiratory rate 18, blood pressure 137/62, pulse oximetry 95% on room air. GENERAL: Patient obese, alert, comfortable, in no acute distress. HEENT: Normocephalic, atraumatic. Moist mucous membranes. NECK: Supple. CARDIAC: Regular rate and rhythm with normal S1, S2. PULMONARY: Coarse breath sounds bilateral. No wheezes, rales, or rhonchi. ABDOMEN: Soft, nontender. Positive bowel sounds. EXTREMITIES: No edema of bilateral lower extremities. LABORATORY DATA: WBC 22, hemoglobin and hematocrit 10.6/32.4, platelets 343. Chemistry: Sodium 138, potassium 4.2, chloride 101, bicarbonate 31, BUN 19, creatinine 0.74. DISCHARGE MEDICATIONS: - azithromycin 500 mg by mouth daily for four days - prednisone 40 mg by mouth daily for three days, then 30 mg by mouth daily for three, then 20 mg by mouth daily for three days, then 10 mg by mouth daily for three days - Ventolin inhaler four times a day as needed - Norvasc 5 mg by mouth daily - Baclofen 10 mg by mouth three times a day as needed - fluoxetine 40 mg by mouth daily - gabapentin 400 mg by mouth three times a day - hydrochlorothiazide 25 mg by mouth daily - potassium chloride 8 mEq by mouth daily - latanoprost eye drops at bedtime - lisinopril 5 mg by mouth at bedtime - Mucinex DM 30-600 mg by mouth twice a day as needed - oxycodone/acetaminophen 10/325 mg by mouth three times a day as needed - Protonix 40 mg by mouth daily - Advair inhaler 250/50 mcg inhalation twice a day - sumatriptan 100 mg by mouth as needed - Ambien 10 mg by mouth at bedtime DISCHARGE INSTRUCTIONS: The patient is instructed to followup with primary care provider in seven days, gut snatcher Dr. Holliday in 10 days, and return to the hospital if symptoms worsen. Time spent coordinating discharge: 35 minutes.
[2017-05-04] MEDS ORDERED: methylPREDNISolone INJ 40 MG/1 ML VIAL (J2920) IV SCH
[2017-05-04] MEDS ORDERED: AZITHROMYCIN 250 MG TAB PO SCH (09:00)
== END 2017-05-03 14:52 | disposition home or self-care (01) ==
LOC: M ED 00:23 → M ED INP 00:24 → M MSPAV 10:01
PROVIDERS: ADMIT Internal Medicine; ATTEND Hospitalist
DX: J44.1 Chronic obstructive pulmonary disease with (acute) exacerbation (principal); J20.8 Acute bronchitis due to other specified organisms; D72.829 Elevated white blood cell count, unspecified; I12.9 Hypertensive chronic kidney disease with stage 1 through stage 4 chronic kidney disease, or unspecified chronic kidney disease; F32.9 Major depressive disorder, single episode, unspecified; F41.9 Anxiety disorder, unspecified; N18.2 Chronic kidney disease, stage 2 (mild); Z85.118 Personal history of other malignant neoplasm of bronchus and lung; Z90.2 Acquired absence of lung [part of]; Z87.798 Personal history of other (corrected) congenital malformations; S22.39XD Fracture of one rib, unspecified side, subsequent encounter for fracture with routine healing; Y92.89 Other specified places as the place of occurrence of the external cause; R06.02 Shortness of breath; G47.33 Obstructive sleep apnea (adult) (pediatric); G43.909 Migraine, unspecified, not intractable, without status migrainosus; Z79.899 Other long term (current) drug therapy; Z79.2 Long term (current) use of antibiotics; Z88.8 Allergy status to other drugs, medicaments and biological substances; Z87.891 Personal history of nicotine dependence
CPT/HCPCS: 36415; 36600; 71010; 71275; 80048; 81001; 82550; 82553; 82803; 83735; 84484; 85025; 86140; 87040; 87086; 87486; 87581; 87633; 87798; 93005; 93041; 94640; 96365; 96366; 96372; 96375; 96376; 97161; 99285; G0378; G8978; G8979; G8980; J0456; J1100; J2930; Q9967

== ENCOUNTER 2017-05-27 11:04 | Inpatient (IN) | payer MEDICARE, BC, OTHER ==
[2017-05-27] MEDS: methylPREDNISolone INJ 125 MG/2 ML VIAL (J2930) IV (11:55)
[2017-05-27] MEDS: IPRATROPIUM 0.5MG/ALBUTEROL 2.5MG INH SOL UD 3ML (DUONEB)(J7620) NEB ×3 (11:58→19:58)
[2017-05-27 12:01] LABS: BASO % 0.2 % (0.0-1.0); HEMATOCRIT 31.3 % (36.0-47.0); HEMOGLOBIN 9.9 g/dl (12.0-16.0); IMMATURE GRANULOCYTE # 0.3 10^3/uL (0-0); IMMATURE GRANULOCYTE % 1.4 % (0-0); LYMPH # 1.5 10^3/uL (1.5-4.5); LYMPH % 7.6 % (24.0-44.0); MEAN CORPUSCULAR HGB CONC 31.6 g/dl (32.0-36.5); MEAN CORPUSCULAR VOLUME 94.8 fl (80.0-96.0); MONO # 1.6 10^3/uL (0.0-0.8); MONO % 8.1 % (0.0-5.0); NEUTROPHILS # 16.6 10^3/uL (1.8-7.7); NEUTROPHILS % 82.7 % (36.0-66.0); PLATELET COUNT, AUTOMATED 447 10^3/uL (150-450); RED CELL DISTRIBUTION WIDTH 14.9 % (11.5-14.5); WHITE BLOOD COUNT 20.1 10^3/uL (4.0-10.0)
[2017-05-27 12:05] LABS: ABG BASE EXCESS -7.8 (-2.0-2.0); ABG HCO3 18.5 MEQ/L (22.0-26.0); ABG PARTIAL PRESSURE CO2 40.6 mmHg (35.0-45.0); ABG PARTIAL PRESSURE O2 83.8 mmHg (75.0-100.0); ABG STANDARD HCO3 18.1 MEQ/L (22.0-26.0); ABG TOTAL CO2 19.7 MEQ/L (23.0-31.0); ABG pH (ARTERIAL) 7.276 UNITS (7.350-7.450)
[2017-05-27 12:08] LABS: PROTHROMBIN TIME 12.2 SECONDS (12.4-14.5)
[2017-05-27 12:19] LABS: ALBUMIN/GLOBULIN RATIO 1.25 (1.00-1.93); ALKALINE PHOSPHATASE 97 U/L (45-117); ALT/SGPT 31 U/L (12-78); ANION GAP 13 MEQ/L (8-16); AST/SGOT 24 U/L (7-37); BILIRUBIN,DIRECT < 0.1 MG/DL (0.0-0.2); BILIRUBIN,TOTAL 0.2 MG/DL (0.2-1.0); BLOOD UREA NITROGEN 49 MG/DL (7-18); CALCIUM LEVEL 7.9 MG/DL (8.8-10.2); CARBON DIOXIDE LEVEL 23 MEQ/L (21-32); CHLORIDE LEVEL 101 MEQ/L (98-107); CPK CREATINE PHOSPHOKINASE 255 U/L (26-192); CREATININE FOR GFR 3.15 MG/DL (0.55-1.02); GLOMERULAR FILTRATION RATE 15.8 (>45); GLUCOSE, FASTING 112 MG/DL (80-110); POTASSIUM SERUM 4.2 MEQ/L (3.5-5.1); SODIUM LEVEL 137 MEQ/L (136-145); TOTAL PROTEIN 7.2 GM/DL (6.4-8.2); TROPONIN I < 0.02 NG/ML (< 0.10)
[2017-05-27 12:24] LABS: MB/CK RELATIVE INDEX 2.35 (< OR =4); THYROID STIMULATING HORMONE 0.708 uIU/ML (0.358-3.740)
[2017-05-27 12:51] LABS: MAGNESIUM LEVEL 2.6 MG/DL (1.8-2.4)
[2017-05-27 12:51] LABS: PHOSPHORUS LEVEL 5.8 MG/DL (2.5-4.9)
[2017-05-27] MEDS: CEFTRIAXONE SOD 2 GM in APPROPRIATE DILUENT 1 EA IV (12:55)
[2017-05-27] MEDS: NS 1,000 ML IV ×2 (12:55→16:47)
[2017-05-27] MEDS: MORPHINE 2 MG/ML 1ML SYRINGE IV (14:50)
[2017-05-27 15:43] LABS: IONIZED CALCIUM 4.2 MG/DL (4.5-5.3)
[2017-05-27] MEDS ORDERED: ACETAMINOPHEN TAB 650MG DOSE (2X325MG) PO (16:00)
[2017-05-27] MEDS ORDERED: ONDANSETRON 4 MG TAB (S0181) PO (16:00)
[2017-05-27] MEDS ORDERED: METOCLOPRAMIDE 10 MG TAB PO (16:00)
[2017-05-27] MEDS ORDERED: BISACODYL 5 MG TAB PO (16:00)
[2017-05-27] MEDS ORDERED: BACLOFEN 10 MG TAB PO (16:15)
[2017-05-27] MEDS ORDERED: IPRATROPIUM 0.5MG/ALBUTEROL 2.5MG INH SOL UD 3ML (DUONEB)(J7620) NEB (16:15)
[2017-05-27] MEDS ORDERED: SUMAtriptan SUCCINATE 25 MG TAB PO (16:15)
[2017-05-27] MEDS: PANTOPRAZOLE 40MG TAB (PROTONIX) PO (16:27)
[2017-05-27 16:45] LABS: RETICULOCYTE % 2.4 % (0.5-1.5)
[2017-05-27 16:47] LABS: IRON (FE) 37 UG/DL (50-170); PERCENT SATURATION 8.1 % (13.2-45.0); TOTAL IRON BINDING CAPACITY 456 UG/DL (250-450)
[2017-05-27 18:29] LABS: APPEARANCE, URINE HAZY (CLEAR); BACTERIA, URINE AUTO 1+ (NEGATIVE); BILIRUBIN, URINE AUTO NEGATIVE (NEGATIVE); BLOOD, URINE BLOOD NEGATIVE (NEGATIVE); COLOR, URINE YELLOW (YELLOW); GLUCOSE, URINE (UA) AUTO NEGATIVE (NEGATIVE); KETONE, URINE AUTO TRACE mg/dL (NEGATIVE); LEUKOCYTE ESTERASE, URINE AUTO 3+ (NEGATIVE); MUCUS, URINE SMALL (NEGATIVE); NITRITE, URINE AUTO NEGATIVE (NEGATIVE); OSMOLALITY URINE 355 MOSM/KG (500-800); PROTEIN, URINE AUTO NEGATIVE (NEGATIVE); RBC, URINE AUTO 2 /HPF (0-3); SPECIFIC GRAVITY URINE AUTO 1.018 (1.002-1.035); SQUAMOUS EPITHELIAL CELL UR AU 0 /HPF (0-6); UROBILINOGEN, URINE AUTO 0.2 mg/dL (0.0-2.0); WBC, URINE AUTO 7 /HPF (0-3)
[2017-05-27 18:38] LABS: SODIUM,RANDOM URINE < 10 MEQ/L
[2017-05-27] MEDS: ADVAIR HFA 115/21MCG INHALER INH (21:00)
[2017-05-27] MEDS: GABAPENTIN 400 MG CAP PO (21:29)
[2017-05-27] MEDS: LATANOPROST 0.005% OPHTH SOLN 2.5 ML OU (21:30)
[2017-05-27] MEDS: HEPARIN SOD (PORCINE) 5000 UNITS/ML VIAL SC (21:31)
[2017-05-28] MEDS: NS 1,000 ML IV ×3 (01:31→12:00)
[2017-05-28] MEDS: IPRATROPIUM 0.5MG/ALBUTEROL 2.5MG INH SOL UD 3ML (DUONEB)(J7620) NEB ×4 (02:00→20:00)
[2017-05-28 04:10] LABS: HEMOGLOBIN 8.9 g/dl (12.0-16.0); MEAN CORPUSCULAR HGB CONC 31.8 g/dl (32.0-36.5); MEAN CORPUSCULAR VOLUME 94.3 fl (80.0-96.0); RED BLOOD COUNT 2.97 10^6/uL (4.00-5.40); WHITE BLOOD COUNT 13.8 10^3/uL (4.0-10.0)
[2017-05-28 04:24] LABS: ANION GAP 10 MEQ/L (8-16); BLOOD UREA NITROGEN 34 MG/DL (7-18); CALCIUM LEVEL 7.9 MG/DL (8.8-10.2); CARBON DIOXIDE LEVEL 27 MEQ/L (21-32); CHLORIDE LEVEL 105 MEQ/L (98-107); CREATININE FOR GFR 1.03 MG/DL (0.55-1.02); GLOMERULAR FILTRATION RATE 57.3 (>45); GLUCOSE, FASTING 112 MG/DL (80-110); POTASSIUM SERUM 3.9 MEQ/L (3.5-5.1); SODIUM LEVEL 142 MEQ/L (136-145)
[2017-05-28 04:36] LABS: PLATELET COUNT, AUTOMATED 341 10^3/uL (150-450)
[2017-05-28] MEDS: PERCOCET 5MG/325MG TAB PO (05:23)
[2017-05-28] MEDS: HEPARIN SOD (PORCINE) 5000 UNITS/ML VIAL SC ×3 (05:24→21:31)
[2017-05-28] MEDS: GABAPENTIN 400 MG CAP PO ×3 (08:25→21:31)
[2017-05-28] MEDS: amLODIPine 5 MG TAB PO (08:25)
[2017-05-28] MEDS: PANTOPRAZOLE 40MG TAB (PROTONIX) PO (08:25)
[2017-05-28] MEDS: FLUoxetine 20 MG CAP PO (08:25)
[2017-05-28] MEDS: ADVAIR HFA 115/21MCG INHALER INH ×2 (09:00→20:13)
[2017-05-28] MEDS: CEFTRIAXONE SOD 2 GM in APPROPRIATE DILUENT 1 EA IV (12:00)
[2017-05-28] MEDS: LATANOPROST 0.005% OPHTH SOLN 2.5 ML OU (21:30)
[2017-05-29] MEDS: IPRATROPIUM 0.5MG/ALBUTEROL 2.5MG INH SOL UD 3ML (DUONEB)(J7620) NEB ×3 (02:00→12:56)
[2017-05-29] MEDS: PERCOCET 5MG/325MG TAB PO (03:26)
[2017-05-29] MEDS: HEPARIN SOD (PORCINE) 5000 UNITS/ML VIAL SC ×2 (05:39→15:00)
[2017-05-29 06:35] LABS: HEMATOCRIT 28.9 % (36.0-47.0); MEAN CORPUSCULAR HEMOGLOBIN 30.1 pg (27.0-33.0); MEAN CORPUSCULAR HGB CONC 31.1 g/dl (32.0-36.5); MEAN CORPUSCULAR VOLUME 96.7 fl (80.0-96.0); PLATELET COUNT, AUTOMATED 321 10^3/uL (150-450); RED BLOOD COUNT 2.99 10^6/uL (4.00-5.40); RED CELL DISTRIBUTION WIDTH 15.2 % (11.5-14.5); WHITE BLOOD COUNT 11.8 10^3/uL (4.0-10.0)
[2017-05-29 07:03] LABS: ANION GAP 6 MEQ/L (8-16); BLOOD UREA NITROGEN 15 MG/DL (7-18); C REACTIVE PROTEIN QUANTITATIV 0.45 MG/DL (0.00-0.30); CALCIUM LEVEL 8.1 MG/DL (8.8-10.2); CARBON DIOXIDE LEVEL 30 MEQ/L (21-32); CHLORIDE LEVEL 106 MEQ/L (98-107); CREATININE FOR GFR 0.59 MG/DL (0.55-1.02); GLOMERULAR FILTRATION RATE > 60.0 (>45); GLUCOSE, FASTING 92 MG/DL (80-110); POTASSIUM SERUM 3.5 MEQ/L (3.5-5.1); SODIUM LEVEL 142 MEQ/L (136-145)
[2017-05-29] MEDS: ADVAIR HFA 115/21MCG INHALER INH (08:06)
[2017-05-29] MEDS: amLODIPine 5 MG TAB PO (09:04)
[2017-05-29] MEDS: PANTOPRAZOLE 40MG TAB (PROTONIX) PO (09:04)
[2017-05-29] MEDS: FLUoxetine 20 MG CAP PO (09:04)
[2017-05-29] MEDS: GABAPENTIN 400 MG CAP PO ×2 (09:05→16:29)
[2017-05-29 10:50] LABS: VITAMIN B12 LEVEL 1541 PG/ML (247-911)
[2017-05-29] MEDS: CEFTRIAXONE SOD 2 GM in APPROPRIATE DILUENT 1 EA IV (12:28)
[2017-05-29] MEDS: LISINOPRIL 5 MG TAB PO (12:49)
== END 2017-05-29 17:15 | disposition home or self-care (01) | DRG 683 ==
LOC: M MSPAV 05-28 18:02 → M ED 11:04 → M ED INP 13:41 → M PCU 15:55
DX: N17.9 Acute kidney failure, unspecified (principal); E87.2 Acidosis; J44.1 Chronic obstructive pulmonary disease with (acute) exacerbation; I13.0 Hypertensive heart and chronic kidney disease with heart failure and stage 1 through stage 4 chronic kidney disease, or unspecified chronic kidney disease; G62.9 Polyneuropathy, unspecified; R41.82 Altered mental status, unspecified; R29.6 Repeated falls; G43.909 Migraine, unspecified, not intractable, without status migrainosus; R53.1 Weakness; N18.2 Chronic kidney disease, stage 2 (mild); I50.9 Heart failure, unspecified; Z99.81 Dependence on supplemental oxygen; Z85.118 Personal history of other malignant neoplasm of bronchus and lung; Z90.2 Acquired absence of lung [part of]; Z90.49 Acquired absence of other specified parts of digestive tract; Z87.891 Personal history of nicotine dependence; Z88.5 Allergy status to narcotic agent; Z88.8 Allergy status to other drugs, medicaments and biological substances

== ENCOUNTER 2017-07-31 11:49 | Emergency (ER) | payer MEDICARE, BC, OTHER | END 2017-07-31 16:10 | disposition home or self-care (01) | LOC: M ED 11:49 | DX: S62.002A Unspecified fracture of navicular [scaphoid] bone of left wrist, initial encounter for closed fracture (principal); W01.0XXA Fall on same level from slipping, tripping and stumbling without subsequent striking against object, initial encounter; Y92.009 Unspecified place in unspecified non-institutional (private) residence as the place of occurrence of the external cause; Z79.51 Long term (current) use of inhaled steroids; Z79.899 Other long term (current) drug therapy; Z98.890 Other specified postprocedural states; Z88.5 Allergy status to narcotic agent; Z88.8 Allergy status to other drugs, medicaments and biological substances | CPT/HCPCS: 73110 ==

== ENCOUNTER → 2017-10-18 | Outpatient (CLI) | payer MEDICARE, BC, OTHER | LOC: M SLEEP HO 12:49 | DX: G47.30 Sleep apnea, unspecified (principal) | CPT/HCPCS: G0399 ==

== ENCOUNTER → 2018-01-01 | Outpatient (REF) | payer MEDICARE, OTHER ==
[2018-01-01 19:45] LABS: FREE T4 0.86 NG/DL (0.76-1.46); THYROID STIMULATING HORMONE 0.345 uIU/ML (0.358-3.740)
== END ==
LOC: M LAB REF 17:09
DX: R00.0 Tachycardia, unspecified (principal)
CPT/HCPCS: 84443

== ENCOUNTER 2018-01-24 05:23 | Inpatient (IN) | payer MEDICARE, BC, OTHER ==
[2018-01-24] MEDS ORDERED: NALOXONE INJ 2 MG/2 ML SYRINGE (J2310) As Ordered (05:31)
[2018-01-24] MEDS ORDERED: AMMONIA AROMATIC INHALANT (FLOOR STOCK) As Ordered (05:36)
[2018-01-24] MEDS: NALOXONE INJ 2 MG/2 ML SYRINGE (J2310) IV ×2 (05:50→06:06)
[2018-01-24] MEDS: NS 1,000 ML IV ×2 (05:50→08:41)
[2018-01-24] MEDS: IPRATROPIUM 0.5MG/ALBUTEROL 2.5MG INH SOL UD 3ML (DUONEB)(J7620) NEB ×6 (05:59→23:15)
[2018-01-24 06:01] LABS: ABG BASE EXCESS -3.5 (-2.0-2.0); ABG HCO3 23.7 MEQ/L (22.0-26.0); ABG O2 SATURATION 95.7 % (95.0-99.0); ABG PARTIAL PRESSURE CO2 52.1 mmHg (35.0-45.0); ABG PARTIAL PRESSURE O2 86.4 mmHg (75.0-100.0); ABG STANDARD HCO3 21.5 MEQ/L (22.0-26.0); ABG TOTAL CO2 25.3 MEQ/L (23.0-31.0); ABG pH (ARTERIAL) 7.276 UNITS (7.350-7.450)
[2018-01-24 06:17] LABS: BASO # 0.1 10^3/uL (0.0-0.2); BASO % 0.6 % (0.0-1.0); EOS # 0.3 10^3/uL (0.0-0.50); EOS % 1.9 % (0.0-3.0); HEMATOCRIT 36.7 % (36.0-47.0); HEMOGLOBIN 11.6 g/dl (12.0-15.5); IMMATURE GRANULOCYTE % 1.4 % (0-3.0); LYMPH # 2.3 10^3/uL (1.5-4.5); LYMPH % 16.1 % (24.0-44.0); MEAN CORPUSCULAR HEMOGLOBIN 30.4 pg (27.0-33.0); MEAN CORPUSCULAR HGB CONC 31.6 g/dl (32.0-36.5); MEAN CORPUSCULAR VOLUME 96.3 fl (80.0-96.0); MONO # 1.6 10^3/uL (0.0-0.8); NEUTROPHILS # 9.8 10^3/uL (1.8-7.7); PLATELET COUNT, AUTOMATED 328 10^3/uL (150-450); RED BLOOD COUNT 3.81 10^6/uL (4.00-5.40); RED CELL DISTRIBUTION WIDTH 13.5 % (11.5-14.5); WHITE BLOOD COUNT 14.2 10^3/uL (4.0-10.0)
[2018-01-24 06:33] LABS: INR 0.93; PARTIAL THROMBOPLASTIN TIME 26.9 SECONDS (25.4-37.6); PROTHROMBIN TIME 12.6 SECONDS (12.1-14.4)
[2018-01-24 06:36] LABS: LACTIC ACID SEPSIS PROTOCOL 1.4 MMOL/L (0.4-2.0)
[2018-01-24 06:37] LABS: ALBUMIN 3.8 GM/DL (3.2-5.2); ALBUMIN/GLOBULIN RATIO 1.23 (1.00-1.93); ALKALINE PHOSPHATASE 71 U/L (45-117); ALT/SGPT 22 U/L (12-78); ANION GAP 14 MEQ/L (8-16); AST/SGOT 17 U/L (7-37); BILIRUBIN,DIRECT 0.1 MG/DL (0.0-0.2); BILIRUBIN,TOTAL 0.3 MG/DL (0.2-1.0); BLOOD UREA NITROGEN 49 MG/DL (7-18); CALCIUM LEVEL 8.7 MG/DL (8.8-10.2); CARBON DIOXIDE LEVEL 24 MEQ/L (21-32); CHLORIDE LEVEL 101 MEQ/L (98-107); CPK CREATINE PHOSPHOKINASE 186 U/L (26-192); FREE T4 0.99 NG/DL (0.76-1.46); GLOMERULAR FILTRATION RATE 14.9 (>45); GLUCOSE, FASTING 116 MG/DL (70-100); POTASSIUM SERUM 3.9 MEQ/L (3.5-5.1); SODIUM LEVEL 139 MEQ/L (136-145); TOTAL PROTEIN 6.9 GM/DL (6.4-8.2); TROPONIN I < 0.02 NG/ML (< 0.10)
[2018-01-24 06:43] LABS: CK-MB VALUE MASS 3.2 NG/ML (<3.6); MB/CK RELATIVE INDEX 1.72 (< OR =4); NT-PRO BNP 131 PG/ML (<125)
[2018-01-24 07:37] LABS: ABG BASE EXCESS -3.7 (-2.0-2.0); ABG HCO3 23.6 MEQ/L (22.0-26.0); ABG O2 SATURATION 95.3 % (95.0-99.0); ABG PARTIAL PRESSURE CO2 52.4 mmHg (35.0-45.0); ABG PARTIAL PRESSURE O2 85.1 mmHg (75.0-100.0); ABG STANDARD HCO3 21.4 MEQ/L (22.0-26.0); ABG TOTAL CO2 25.2 MEQ/L (23.0-31.0); ABG pH (ARTERIAL) 7.271 UNITS (7.350-7.450)
[2018-01-24 07:39] LABS: ETHYL ALCOHOL (ETHANOL) < 0.003 % (0.000-0.010)
[2018-01-24 08:12] LABS: AMORPHOUS SEDIMENT RFX MODERATE (NEGATIVE); CALCIUM OXALATE CRYSTALS RFX SMALL; KETONE, URINE AUTO RFX NEGATIVE (NEGATIVE); MUCUS, URINE RFX SMALL (NEGATIVE); NITRITE, URINE AUTO RFX NEGATIVE (NEGATIVE); RBC, URINE AUTO RFX 2 /HPF (0-3); SPECIFIC GRAVITY UR AUTO RFX 1.016 (1.002-1.035); SQUAM EPITHELIAL CELL UR AURFX 0 /HPF (0-6); WBC, URINE AUTO RFX 1 /HPF (0-3)
[2018-01-24 08:25] LABS: LEUKOCYTE ESTERASE UR AUTO RFX TRACE (NEGATIVE)
[2018-01-24] MEDS: ROCURONIUM BROMIDE 50 MG/5 ML VIAL IV ×4 (08:30→10:22)
[2018-01-24] MEDS: LIDOCAINE 2% INJ 100 MG/5 ML SYRINGE IV (08:40)
[2018-01-24] MEDS: ETOMIDATE INJ 20MG/10ML VIAL IV (08:41)
[2018-01-24] MEDS: SUCCINYLCHOLINE INJ 200 MG/10 ML VIAL (J0330) IV (08:41)
[2018-01-24] MEDS ORDERED: ROCURONIUM BROMIDE 50 MG/5 ML VIAL IV (08:45)
[2018-01-24] MEDS: PROPOFOL 1,000 MG in APPROPRIATE DILUENT 1 EA IV ×6 (09:00→23:25)
[2018-01-24] MEDS: PROPOFOL 200 MG/20 ML VIAL IV (09:18)
[2018-01-24 10:16] LABS: ABG BASE EXCESS -4.1 (-2.0-2.0); ABG HCO3 22.7 MEQ/L (22.0-26.0); ABG O2 SATURATION 97.8 % (95.0-99.0); ABG PARTIAL PRESSURE CO2 48.6 mmHg (35.0-45.0); ABG PARTIAL PRESSURE O2 110.6 mmHg (75.0-100.0); ABG STANDARD HCO3 21.1 MEQ/L (22.0-26.0); ABG TOTAL CO2 24.2 MEQ/L (23.0-31.0); ABG pH (ARTERIAL) 7.287 UNITS (7.350-7.450)
[2018-01-24] MEDS: D5W/0.45% SODIUM CHLORIDE 1,000 ML IV ×3 (10:52→23:25)
[2018-01-24 12:14] LABS: BEDSIDE GLUCOSE 161 MG/DL (80-115)
[2018-01-24] MEDS: PANTOPRAZOLE 40MG INJ (PROTONIX) (C9113) IV (12:39)
[2018-01-24] MEDS: methylPREDNISolone INJ 40 MG/1 ML VIAL (J2920) IV ×2 (12:39→20:10)
[2018-01-24] MEDS: cefTRIAXone SOD 1 GM in D5W MINI-BAG PLUS 50 ML IV (12:40)
[2018-01-24] MEDS: CHLORHEXIDINE ORAL RINSE 0.12%/15ML 120ML BOTTLE MT ×2 (12:41→20:10)
[2018-01-24] MEDS: HEPARIN SOD (PORCINE) 5000 UNITS/ML VIAL SC ×2 (12:53→20:10)
[2018-01-24] MEDS: MIDAZOLAM INJ 2 MG/2 ML VIAL (J2250) IV ×4 (14:21→23:24)
[2018-01-24] MEDS ORDERED: ETOMIDATE INJ 20MG/10ML VIAL (14:34)
[2018-01-24] MEDS ORDERED: PROPOFOL 200 MG/20 ML VIAL (14:34)
[2018-01-24] MEDS ORDERED: LIDOCAINE 2% INJ 100 MG/5 ML SYRINGE (14:34)
[2018-01-24] MEDS ORDERED: SUCCINYLCHOLINE 100 MG/5 ML SYRINGE (J0330) (14:34)
[2018-01-24] MEDS ORDERED: ROCURONIUM BROMIDE 50 MG/5 ML VIAL (14:34)
[2018-01-24] MEDS ORDERED: PROPOFOL 1,000 MG/100 ML VIAL As Ordered (15:30)
[2018-01-24 15:32] LABS: ABG BASE EXCESS -1.9 (-2.0-2.0); ABG HCO3 22.6 MEQ/L (22.0-26.0); ABG O2 SATURATION 98.7 % (95.0-99.0); ABG PARTIAL PRESSURE CO2 37.5 mmHg (35.0-45.0); ABG PARTIAL PRESSURE O2 141.8 mmHg (75.0-100.0); ABG STANDARD HCO3 22.9 MEQ/L (22.0-26.0); ABG TOTAL CO2 23.8 MEQ/L (23.0-31.0); ABG pH (ARTERIAL) 7.398 UNITS (7.350-7.450)
[2018-01-24] MEDS: MORPHINE 4 MG/ML 1ML VIAL/SYRINGE (J2270) IV (18:48)
[2018-01-24 18:58] LABS: ANION GAP 9 MEQ/L (8-16); BLOOD UREA NITROGEN 30 MG/DL (7-18); CALCIUM LEVEL 8.8 MG/DL (8.8-10.2); CARBON DIOXIDE LEVEL 26 MEQ/L (21-32); CHLORIDE LEVEL 105 MEQ/L (98-107); CREATININE FOR GFR 1.23 MG/DL (0.55-1.30); GLOMERULAR FILTRATION RATE 46.5 (>45); GLUCOSE, FASTING 188 MG/DL (70-100); POTASSIUM SERUM 3.9 MEQ/L (3.5-5.1); SODIUM LEVEL 140 MEQ/L (136-145)
[2018-01-24 20:11] LABS: MAGNESIUM LEVEL 2.1 MG/DL (1.8-2.4)
[2018-01-24 21:26] LABS: ABG BASE EXCESS -0.6 (-2.0-2.0); ABG O2 SATURATION 98.4 % (95.0-99.0); ABG PARTIAL PRESSURE CO2 44.7 mmHg (35.0-45.0); ABG PARTIAL PRESSURE O2 131.8 mmHg (75.0-100.0); ABG TOTAL CO2 26.3 MEQ/L (23.0-31.0); ABG pH (ARTERIAL) 7.365 UNITS (7.350-7.450)
[2018-01-25] MEDS: MIDAZOLAM INJ 2 MG/2 ML VIAL (J2250) IV ×5 (01:12→06:24)
[2018-01-25] MEDS: PROPOFOL 1,000 MG in APPROPRIATE DILUENT 1 EA IV ×3 (02:38→07:18)
[2018-01-25] MEDS: methylPREDNISolone INJ 40 MG/1 ML VIAL (J2920) IV ×3 (03:12→20:14)
[2018-01-25] MEDS: IPRATROPIUM 0.5MG/ALBUTEROL 2.5MG INH SOL UD 3ML (DUONEB)(J7620) NEB ×6 (04:14→23:39)
[2018-01-25 04:45] LABS: BASO % 0.1 % (0.0-1.0); HEMATOCRIT 34.7 % (36.0-47.0); LYMPH # 0.6 10^3/uL (1.5-4.5); MEAN CORPUSCULAR HEMOGLOBIN 30.1 pg (27.0-33.0); MEAN CORPUSCULAR HGB CONC 31.7 g/dl (32.0-36.5); MEAN CORPUSCULAR VOLUME 94.8 fl (80.0-96.0); MONO # 1.3 10^3/uL (0.0-0.8); MONO % 6.4 % (0.0-5.0); NEUTROPHILS # 18.6 10^3/uL (1.8-7.7); NEUTROPHILS % 89.5 % (36.0-66.0); PLATELET COUNT, AUTOMATED 299 10^3/uL (150-450); RED BLOOD COUNT 3.66 10^6/uL (4.00-5.40); RED CELL DISTRIBUTION WIDTH 13.5 % (11.5-14.5); WHITE BLOOD COUNT 20.8 10^3/uL (4.0-10.0)
[2018-01-25] MEDS: D5W/0.45% SODIUM CHLORIDE 1,000 ML IV (04:59)
[2018-01-25 05:02] LABS: ALBUMIN 3.3 GM/DL (3.2-5.2); ALBUMIN/GLOBULIN RATIO 0.89 (1.00-1.93); ALKALINE PHOSPHATASE 67 U/L (45-117); ALT/SGPT 22 U/L (12-78); ANION GAP 12 MEQ/L (8-16); AST/SGOT 29 U/L (7-37); BILIRUBIN,TOTAL 0.2 MG/DL (0.2-1.0); BLOOD UREA NITROGEN 20 MG/DL (7-18); CALCIUM LEVEL 8.3 MG/DL (8.8-10.2); CARBON DIOXIDE LEVEL 24 MEQ/L (21-32); CHLORIDE LEVEL 105 MEQ/L (98-107); CHOLESTEROL LEVEL 170 MG/DL (< 200); CPK CREATINE PHOSPHOKINASE 673 U/L (26-192); CREATININE FOR GFR 1.04 MG/DL (0.55-1.30); GLOMERULAR FILTRATION RATE 56.4 (>45); GLUCOSE, FASTING 192 MG/DL (70-100); LDH LACTATE DEHYDROGENASE 199 U/L (84-246); PHOSPHORUS LEVEL 2.3 MG/DL (2.5-4.9); POTASSIUM SERUM 3.5 MEQ/L (3.5-5.1); SODIUM LEVEL 141 MEQ/L (136-145); TRIGLYCERIDES LEVEL 112 MG/DL (<150)
[2018-01-25 05:45] LABS: ABG BASE EXCESS -4.2 (-2.0-2.0); ABG HCO3 19.8 MEQ/L (22.0-26.0); ABG PARTIAL PRESSURE CO2 32.8 mmHg (35.0-45.0); ABG PARTIAL PRESSURE O2 86.5 mmHg (75.0-100.0); ABG TOTAL CO2 20.8 MEQ/L (23.0-31.0); ABG pH (ARTERIAL) 7.399 UNITS (7.350-7.450)
[2018-01-25] MEDS: HEPARIN SOD (PORCINE) 5000 UNITS/ML VIAL SC ×3 (06:00→21:35)
[2018-01-25] MEDS: MORPHINE 4 MG/ML 1ML VIAL/SYRINGE (J2270) IV (09:07)
[2018-01-25] MEDS: CHLORHEXIDINE ORAL RINSE 0.12%/15ML 120ML BOTTLE MT (09:07)
[2018-01-25] MEDS: PANTOPRAZOLE 40MG INJ (PROTONIX) (C9113) IV (09:07)
[2018-01-25] MEDS: KCL 10MEQ/100ML SWI (KRUN) 10 MEQ in APPROPRIATE DILUENT 1 EA IV (09:53)
[2018-01-25] MEDS: KCL 20MEQ IN D5/0.45NS 1000ML 1,000 ML IV (09:53)
[2018-01-25 10:05] LABS: ABG BASE EXCESS -0.7 (-2.0-2.0); ABG HCO3 23.4 MEQ/L (22.0-26.0); ABG PARTIAL PRESSURE CO2 36.5 mmHg (35.0-45.0); ABG PARTIAL PRESSURE O2 96.4 mmHg (75.0-100.0); ABG STANDARD HCO3 23.9 MEQ/L (22.0-26.0); ABG TOTAL CO2 24.5 MEQ/L (23.0-31.0); ABG pH (ARTERIAL) 7.425 UNITS (7.350-7.450)
[2018-01-25] MEDS: cefTRIAXone SOD 1 GM in D5W MINI-BAG PLUS 50 ML IV (13:08)
[2018-01-25] MEDS: GABAPENTIN 400 MG CAP PO ×2 (17:08→20:14)
[2018-01-25] MEDS: FLUoxetine 20 MG CAP PO (17:09)
[2018-01-25] MEDS: ROSUVASTATIN 10 MG TAB (CRESTOR) PO (20:15)
[2018-01-25] MEDS: oxyCODONE 5MG TAB PO (21:39)
[2018-01-25] MEDS: PERCOCET 5MG/325MG TAB PO (21:40)
[2018-01-26] MEDS: IPRATROPIUM 0.5MG/ALBUTEROL 2.5MG INH SOL UD 3ML (DUONEB)(J7620) NEB ×3 (04:00→11:15)
[2018-01-26 05:05] LABS: BASO % 0.1 % (0.0-1.0); HEMOGLOBIN 10.2 g/dl (12.0-15.5); IMMATURE GRANULOCYTE % 0.8 % (0-3.0); LYMPH # 0.9 10^3/uL (1.5-4.5); MEAN CORPUSCULAR HEMOGLOBIN 30.6 pg (27.0-33.0); MEAN CORPUSCULAR HGB CONC 31.9 g/dl (32.0-36.5); MEAN CORPUSCULAR VOLUME 96.1 fl (80.0-96.0); MONO # 1.1 10^3/uL (0.0-0.8); MONO % 5.7 % (0.0-5.0); NEUTROPHILS # 16.4 10^3/uL (1.8-7.7); NEUTROPHILS % 88.4 % (36.0-66.0); PLATELET COUNT, AUTOMATED 259 10^3/uL (150-450); RED BLOOD COUNT 3.33 10^6/uL (4.00-5.40); RED CELL DISTRIBUTION WIDTH 13.9 % (11.5-14.5); WHITE BLOOD COUNT 18.6 10^3/uL (4.0-10.0)
[2018-01-26] MEDS: HEPARIN SOD (PORCINE) 5000 UNITS/ML VIAL SC (05:24)
[2018-01-26] MEDS: methylPREDNISolone INJ 40 MG/1 ML VIAL (J2920) IV ×2 (05:24→12:00)
[2018-01-26 05:29] LABS: ALBUMIN 3.2 GM/DL (3.2-5.2); ALBUMIN/GLOBULIN RATIO 0.89 (1.00-1.93); ALKALINE PHOSPHATASE 67 U/L (45-117); ALT/SGPT 21 U/L (12-78); ANION GAP 8 MEQ/L (8-16); AST/SGOT 19 U/L (7-37); BILIRUBIN,TOTAL 0.2 MG/DL (0.2-1.0); BLOOD UREA NITROGEN 12 MG/DL (7-18); CALCIUM LEVEL 8.6 MG/DL (8.8-10.2); CARBON DIOXIDE LEVEL 28 MEQ/L (21-32); CHLORIDE LEVEL 106 MEQ/L (98-107); CHOLESTEROL LEVEL 159 MG/DL (< 200); CPK CREATINE PHOSPHOKINASE 279 U/L (26-192); CREATININE FOR GFR 0.63 MG/DL (0.55-1.30); GLOMERULAR FILTRATION RATE > 60.0 (>45); GLUCOSE, FASTING 141 MG/DL (70-100); LDH LACTATE DEHYDROGENASE 199 U/L (84-246); PHOSPHORUS LEVEL 2.5 MG/DL (2.5-4.9); POTASSIUM SERUM 4.3 MEQ/L (3.5-5.1); SODIUM LEVEL 142 MEQ/L (136-145); TOTAL PROTEIN 6.8 GM/DL (6.4-8.2); TRIGLYCERIDES LEVEL 81 MG/DL (<150)
[2018-01-26] MEDS: PANTOPRAZOLE 40MG INJ (PROTONIX) (C9113) IV (09:04)
[2018-01-26] MEDS: FLUoxetine 20 MG CAP PO (09:04)
[2018-01-26] MEDS: ROSUVASTATIN 10 MG TAB (CRESTOR) PO (09:04)
[2018-01-26] MEDS: GABAPENTIN 400 MG CAP PO (09:04)
[2018-01-26] MEDS: cefTRIAXone SOD 1 GM in D5W MINI-BAG PLUS 50 ML IV (12:00)
[2018-01-27 14:01] LABS: BEDSIDE GLUCOSE 126 MG/DL (80-115)
== END 2018-01-26 13:18 | disposition home or self-care (01) | DRG 208 ==
LOC: M ED 05:23 → M ED INP 10:13 → M ICU 11:45
PROVIDERS: Internal Medicine Pulmonary Disease
PROC: 5A1935Z Respiratory Ventilation, Less than 24 Consecutive Hours (ICD-10-PCS; principal; 2018-01-24)
PROC: 0BH17EZ Insertion of Endotracheal Airway into Trachea, Via Natural or Artificial Opening (ICD-10-PCS; 2018-01-24)
DX: J96.00 Acute respiratory failure, unspecified whether with hypoxia or hypercapnia (principal); N17.9 Acute kidney failure, unspecified; I13.0 Hypertensive heart and chronic kidney disease with heart failure and stage 1 through stage 4 chronic kidney disease, or unspecified chronic kidney disease; J44.9 Chronic obstructive pulmonary disease, unspecified; J45.909 Unspecified asthma, uncomplicated; N18.9 Chronic kidney disease, unspecified; E86.0 Dehydration; E87.6 Hypokalemia; I50.9 Heart failure, unspecified; G47.33 Obstructive sleep apnea (adult) (pediatric); G89.4 Chronic pain syndrome; T42.75XA Adverse effect of unspecified antiepileptic and sedative-hypnotic drugs, initial encounter; Z85.118 Personal history of other malignant neoplasm of bronchus and lung; Z90.2 Acquired absence of lung [part of]; Z79.899 Other long term (current) drug therapy; Z88.5 Allergy status to narcotic agent; Z88.8 Allergy status to other drugs, medicaments and biological substances; Z87.891 Personal history of nicotine dependence

== ENCOUNTER → 2018-01-30 | Outpatient (CLI) | payer MEDICARE, BC, OTHER | LOC: M SLEEP 19:27 | DX: G47.33 Obstructive sleep apnea (adult) (pediatric) (principal) | CPT/HCPCS: 95811 ==

== ENCOUNTER → 2018-12-31 | Outpatient (CLI) | payer MEDICARE, BC, OTHER ==
[~2018-12-31] MED LIST changes: -/BACL20TA OR; -/ESOM40CA OR; -/FENT75PA TD; -AMLO5TAB2 PO; +AMLO5TAB6 PO; +AMOX/K; +AMOX875T2 PO; +AZIT-10 PO; -AZIT250T8 PO; +AZIT500T2 PO; +BACL1TAB9 OR; +CIPR-303 PO; +CIPR500T3 PO; +CRES10TA PO; +DALI1TAB2 PO; +FENT1DIS16 TD; -GABA-283 PO; +GABA-845 PO; +GUAI100L6 PO; -GUAI100S7 PO; +HYDR-2541 PO; +HYDR-4267 PO; -HYDR50TA PO; +LATA0.0013 OU; -LATA5OPD OU; +LEVA0.3131 INH; +LEVA1TAB2 PO; -LEVA31IN INH; +MUCI30TA5 PO; +NEXI1CAP3 OR; +NORC1TAB8 PO; -NORC7.5T35 PO; +ONDA-228 PO; +OXYC10TA3 PO; -OXYC1TAB16 PO; +PANT40TA3 PO; +PERC5TAB12 PO; +POTA1TAB21; +PRED-351 PO; -PRED10TA PO; +PROT1TAB2 PO; +TORS10TA3 PO; +TORS20TA2 PO; +TORS5TAB2 PO; -ZOFR4TAB3 PO
--- NOTE | 2018-12-31 14:09 | REP ---
CHEST, TWO VIEWS: HISTORY: COPD. COMPARISON: 01/26/2018 There is elevation of the right hemidiaphragm. The lungs are clear. The heart is normal in size. The pulmonary vasculature is normal in appearance. The bony structure is intact. IMPRESSION: No acute disease. Electronically Signed by Bo Walsh MD 12/31/2018 03:13 P
== END ==
LOC: M SMT 13:01
PROVIDERS: ATTEND Internal Medicine Pulmonary Disease
DX: J44.9 Chronic obstructive pulmonary disease, unspecified (principal)

== ENCOUNTER → 2019-01-09 | Outpatient (CLI) | payer MEDICARE, BC, OTHER ==
--- NOTE | 2019-01-09 20:49 | REP ---
CT chest without contrast: History: Abnormal lung field findings. Personal history of malignant neoplasm of the lung. Comparison CT study is reviewed from January 24, 2018, May 27, 2017, and April 01, 2015. Findings: The patient is status post prior right thoracotomy and right upper lobectomy. There are some post surgical changes along the right chest wall and minimal linear fibrotic changes are noted in the right lower lobe and right middle lobe. No pleural or pericardial effusion is seen. No significant pulmonary nodule is appreciated. No endobronchial disease is appreciated. No hilar or mediastinal mass or adenopathy is observed. There are granulomatous calcifications scattered about the spleen. Post cholecystectomy clips are noted in the right upper quadrant. No adrenal lesion is observed on either side. There is a wedge compression fracture deformity at the thoracolumbar junction at what appears to be the T12 level. This is associated with some retropulsion and narrowing of the spinal canal however is unchanged from the April 2017 prior study. Impression: Post thoracotomy partial pneumonectomy changes on the right status post right upper lobectomy. Otherwise no acute cardiopulmonary disease seen. Old wedge compression fracture deformity at the T12 vertebral body level. Electronically Signed by Aldo Rosas MD 01/09/2019 09:19 P
== END ==
LOC: M RAD 15:43
PROVIDERS: ATTEND Internal Medicine Pulmonary Disease
DX: Z90.2 Acquired absence of lung [part of] (principal); Z85.118 Personal history of other malignant neoplasm of bronchus and lung; R91.8 Other nonspecific abnormal finding of lung field

== ENCOUNTER 2019-11-20 12:18 | Inpatient (IN) | payer MEDICARE, BC, OTHER ==
[~2019-11-20] VITALS: Ht 160 cm; Wt 108.7 kg
[~2019-11-20 12:18] MED LIST changes: +AMLO1TAB24 PO; -AMLO5TAB6 PO; -AZIT500T2 PO; +AZIT500T5 PO; -DOXY100T16 PO; +DOXY100T27 PO; +PANT40TA29 PO; -PANT40TA3 PO
[2019-11-20] MEDS ORDERED: CelecoXIB (CeleBREX) 100 MG CAP PO PRN (14:30)
[2019-11-20] MEDS ORDERED: BISACODYL 10 MG SUPP PR PRN (14:30)
[2019-11-20] MEDS ORDERED: oxyCODONE 5MG TAB PO PRN (14:30)
[2019-11-20] MEDS ORDERED: methocarbamoL 500 MG TAB PO PRN (14:30)
[2019-11-20] MEDS ORDERED: SUMAtriptan SUCCINATE 25 MG TAB PO PRN (14:30)
[2019-11-20] MEDS ORDERED: ALBUTEROL SULFATE 2.5 MG/0.5 ML INH NEB SOLN NEB PRN (14:30)
[2019-11-20] MEDS ORDERED: BISACODYL 5 MG TAB PO PRN (14:30)
--- NOTE | 2019-11-20 14:30 | HPEPDOC ---
Vice Chair Note DATE OF ADMISSION: 11-20-19 DATE OF SERVICE: 11-21-19 TIME OF ADMISSION: Please refer to physician's admission order. SOURCE OF ADMISSION INFORMATION: [facility] and patient CHIEF COMPLAINT: lumbar stenosis s/p laminectomy HISTORY OF PRESENT ILLNESS: 69F pmh lung cancer s/p right lobe lobectomy, COPD, CKD2, cervical myelopathy, CHINTAN, morbid obesity, HTn, HLD, Asthma with longstanding low back pain with bilateral lower extremity weakness and pain was admitted to [facility] on 11-12-19 for orthopedic surgery. She was cleared by cardiology and underwent a arthrodesis of T9-L2 with laminectomy and decompression from T11-L1 with T12 corpectomy with cage placement for a burst T12 fracture. She had post-op pain, however did not have any new concerning neurological symptoms. Follow-up CT showed stable hardware position, she was evaluated by therapy and found to have significant mobility and ADL impairments and deemed medically appropriate for discharge to ARU on 11-20-19. REVIEW OF SYSTEMS: The following is a completed review of systems and has been reviewed. Review of systems otherwise unremarkable. PAIN: Patient self reports low back pain EYES: No recent vision changes EARS, NOSE, & THROAT: No throat pain, or dysphagia, or rhinorrhea CARDIOVASCULAR: Denies chest pain or palpitations PULMONARY: Denies shortness of breath GASTROINTESTINAL: Denies constipation/diarrhea GENITOURINARY: denies dysuria or retention MUSCULOSKELETAL: low back pain NEUROLOGICAL:denies paresthesias HEMATOLOGICAL: denies easy bruising SKIN: lumbar incision PSYCHIATRIC: Unremarkable All other review of systems found to be negative. PAST MEDICAL HISTORY: as per HPI PAST SURGICAL HISTORY: Right upper lobectomy, left wrist and arm surgery, chiari malformation, neck surgery, lumbar fusion, gall bladder removal ALLERGIES: Please see below. MEDICATIONS: Please see below. SOCIAL HISTORY: No etoh/smoking/illicit drugs DIET:low sodium PHYSICAL EXAMINATION: VITAL SIGNS: Please see below. GENERAL: Pleasant and cooperative. No acute distress. HEENT: PERRL. Extraocular movements intact. Clear conjunctiva CARDIOVASCULAR: Regular rate and rhythm. No murmurs, rubs, or gallops LUNGS: Clear to auscultation bilaterally. No wheezes. No rhonchi ABDOMEN: Soft, nontender, nondistended. Positive bowel sounds. Normal active bowel sounds NEUROLOGICAL: Alert and oriented times three. Cranial nerves II through XII grossly intact. Sensation grossly intact in bilat LE EXTREMITIES: 5\5 strength bilateral upper extremities. 5-\5 strength right lower extremity. 5-/5 strength in left lower extremity. SKIN:lumbar incision without induration/ecchymosis, top 2/3d without drainage, bottom 1/3 with sanguinous drainage (scant on my exam) LABORATORY DATA: Please see below. IMAGING:Imaging documentation personally reviewed by record FUNCTIONAL STATUS: Premorbid: Modified independent with all activities of daily life as well as mobility]. On Admission: Min assist lower body bathing and upper body dressing, total for lower body dressing, Mod assist functional transfers and ambulation, max toileting GOALS:Mod-I functional transfers, bed mobility, ambulation household distances, dressing, bathing, toileting ASSESSMENT:69-year-old F with past medical history of chronic low back pain who presents status post T12 burst facture with laminectomy PLAN: 1. PT/OT advance gait and ADLs, strengthen/stretch/maintain ROM all 4 limbs 2. ortho- T12 burst fracture with spinal stenosis s/p laminectomy, spinal pre cautions -f/u Dr. Eldon anguiano [phone] in 2 weeks -c/u BID or greater dressing changes for drainage, incision appears intact and mago-wound c/d/i, will monitor Hgb for blood loss, patient clinically stable 3. Cardiology chronic systolic CHF, fluid restrict, daily torsemide (monitor for SON in setting of CKD2) daily weights, medicine consulted to assist in overall management - HTN c/u lisinopril -HLD- c/u statin -f/u cardiology Dr. Briggs [phone] 2-4 weeks 4. Resp- hx of COPD and CHINTAN, daytime and nocturnal 02 for goal >88%, may use own CPAP if able to bring in -Duonebs, Advair, and albuterol prn -finish up 5 day course of oral steroids for COPD exacerbation 5. Renal- CKD2, monitor for SON 6. - monitor PVRs 7. DVT ppx- lovenox and teds, switch to oral ASA 81 daily per DC recs upon d/c from ARU 8. GI ppx- protonix 9. Pain- gabapentin, celecoxib, Tylenol, oxycodone, methocarbamol -sumatriptan prn for headaches -restless leg, c/u Requip 10. Psych- Prozac for depression 11. Dispo- tbd POST ADMISSION PHYSICIAN EVALUATION: Medical and functional status: Description of medical status, medical assessment: As above. Rehabilitation diagnosis and current and prior cold morbid medical conditions as above. Risk of complications and plans to mitigate them as above. Description of functional status current status is as above. Prior status as above. Status compared to preadmission: There are no clinically significant differences between the patient's current status and the information described on the preadmission screening document. Treatment plan anticipated: Treatment plan is as described above. Required disciplines including physical therapy, occupational therapy, others as noted above Intensity of services: 3 hours a day, 6 days a week. Special considerations: There are no specific special or safety considerations that would likely preclude immediate implementation of an intensive rehabilitation program or subsequently influence the plan of care ATTESTATION: Considering all the information above, it is my best judgment that this patient requires intensive rehabilitation therapy as described above and an inpatient hospital environment due to the complexity of nursing, medical, and rehabilitation needs required by the patient. Furthermore, this patient can reasonably be expected to participate in an benefit from an inpatient rehabilitation stay with an interdisciplinary team approach to the delivery of rehabilitation care under the direction and supervision of rehabilitation physician PROGNOSIS: good ESTIMATED LENGTH OF STAY:14-18 days. PROJECTED DISCHARGE DESTINATION: Home with family support and any durable medical equipment required to increase functional safety and mobility. TIME SPENT COUNSELING AND COORDINATING INITIAL CARE: Greater than 70 minutes. Vital Signs Vital Signs Date Time Temp Pulse Resp B/P (MAP) Pulse Ox O2 Delivery O2 Flow Rate FiO2 11/20/19 17:10 97.7 102 20 151/70 (97) 93 Room Air 11/20/19 20:00 2.0 Home Medications Scheduled Atorvastatin Calcium (Atorvastatin Calcium) 20 Mg Tablet, 20 MG PO QHS, (Reported) CHANGED FROM CRESTOR 10MG AT [facility] Enoxaparin Sodium (Lovenox) 40 Mg/0.4 Ml Syringe, 40 MG SC DAILY, (Reported) STARTED AT [facility] Ferrous Sulfate (Ferrous Sulfate) 325 Mg Tablet, 325 MG PO DAILY, (Reported) Fluoxetine Hcl (Fluoxetine HCl) 40 Mg Cap, 40 MG PO DAILY, (Reported) Fluticasone Propion/Salmeterol (Advair Hfa 230-21 Mcg Inhaler) 1 Aer Aer, 2 PUFF INH BID, (Reported) Gabapentin (Gabapentin) 400 Mg Cap, 400 MG PO TID, (Reported) Guar Gum (Nutrisource Fiber) 1 Each Packet, 2 PACKET PO DAILY, (Reported) STARTED AT [facility] Latanoprost (Xalatan) 0.005% 2.5ML Drops, 1 DROP OU QHS, (Reported) Lisinopril (Lisinopril) 5 Mg Tab, 5 MG PO QHS, (Reported) Multivitamins (Thera M Plus Tablet) 1 Each Tablet, 1 TAB PO DAILY, (Reported) Pantoprazole Sodium (Pantoprazole Sodium) 40 Mg Tablet.dr, 40 MG PO DAILY, (Reported) Polyethylene Glycol 3350 (Miralax) 119 Gm Powder, 17 GM PO DAILY, (Reported) STARTED AT [facility] Ropinirole HCl (Ropinirole HCl) 0.25 Mg Tablet, 0.25 MG PO TID, (Reported) Sennosides/Docusate Sodium (Senna-S Tablet) 1 Each Tablet, 2 TAB PO QHS, (Reported) STARTED AT [facility] Torsemide (Torsemide) 10 Mg Tab, 10 MG PO DAILY, (Reported) Scheduled PRN Acetaminophen (Acetaminophen) 325 Mg Tablet, 650 MG PO Q6H PRN for PAIN, (Reported) Albuterol Sulfate (Ventolin Hfa) 108 Mcg/Act Aer, 2 PUFFS INH Q4H PRN for SHORTNESS OF BREATH, (Reported) Celecoxib (Celecoxib) 200 Mg Capsule, 200 MG PO BID PRN for PAIN, (Reported) Magnesium Hydroxide (Milk of Magnesia) 400 Mg/5 Ml Oral.susp, 30 ML PO DAILY PRN for CONSTIPATION, (Reported) Methocarbamol (Methocarbamol) 500 Mg Tablet, 500 MG PO Q6H PRN for SPASMS, (Reported) STARTED AT [facility] Oxycodone HCl (Oxycodone HCl) 5 Mg Tablet, 10 MG PO Q4H PRN for SEVERE PAIN (PS 8-10), (Reported) STARTED AT [facility] Oxycodone HCl/Acetaminophen (Oxycodone-Acetaminophen 10-325) 1 Tab Tab, 1 TAB PO TID PRN for PAIN, (Reported) Prednisone (Prednisone) 10 Mg Tablet, 10 MG PO DAILY PRN for SHORTNESS OF BREATH, (Reported) Sumatriptan Succinate (Sumatriptan Succinate) 100 Mg Tab, 100 MG PO DAILY PRN for MIGRAINE, (Reported) Allergies Coded Allergies: Benzodiazepines (Verified Allergy, Intermediate, DELERIUM, 11/20/19) pregabalin (Verified Allergy, Mild, FEET SWELLING, 11/20/19) fentanyl (Verified Adverse Reaction, Mild, LOOPY, 11/20/19) morphine (Verified Adverse Reaction, Mild, SEDATION; profound, 11/20/19) A-FIB/CHADSVASC A-FIB History Current/History of A-Fib/PAF?: No FLOR KHAN MD Nov 20, 2019 14:30
[2019-11-20 17:10] VITALS: BP 151/70
[2019-11-20] MEDS: oxyCODONE 5MG TAB PO PRN (18:03)
[2019-11-20] MEDS ORDERED: ROPI0.253 PO (18:04)
[2019-11-20] MEDS ORDERED: MIRA3350 PO (18:04)
[2019-11-20] MEDS ORDERED: LOVE1INJ SC (18:04)
[2019-11-20] MEDS ORDERED: PRED10TA2 PO (18:04)
[2019-11-20] MEDS ORDERED: XALA0.007 OU (18:04)
[2019-11-20] MEDS ORDERED: CELE1CAP9 PO (18:04)
[2019-11-20] MEDS ORDERED: NUTRPAK PO (18:04)
[2019-11-20] MEDS ORDERED: APAP325T4 PO (18:04)
[2019-11-20] MEDS ORDERED: OXYC-517 PO (18:04)
[2019-11-20] MEDS ORDERED: FERR325T18 PO (18:04)
[2019-11-20] MEDS ORDERED: ATOR1TAB21 PO (18:04)
[2019-11-20] MEDS ORDERED: MILKSUS3 PO (18:04)
[2019-11-20] MEDS: ACETAMINOPHEN 500 MG TAB PO SCH ×2 (18:04→21:02)
[2019-11-20] MEDS ORDERED: VITMTA PO (18:04)
[2019-11-20] MEDS ORDERED: PANT-23 PO (18:04)
[2019-11-20] MEDS ORDERED: SENN-23 PO (18:04)
[2019-11-20] MEDS ORDERED: METH1TAB40 PO (18:04)
[2019-11-20] MEDS: REMEDY PHYTOPLEX Z-GUARD PASTE 113GM TUBE (FROM STOREROOM PRODUCT) TOP SCH ×2 (18:04→21:08)
[2019-11-20] MEDS: rOPINIRole 0.25 MG TAB(REQUIP) PO SCH ×2 (18:53→21:02)
[2019-11-20] MEDS: GABAPENTIN 400 MG CAP PO SCH ×2 (18:54→21:02)
[2019-11-20] MEDS: IPRATROPIUM 0.5MG/ALBUTEROL 2.5MG INH SOL UD 3ML (DUONEB) NEB SCH (19:57)
[2019-11-20 20:00] VITALS: BP 158/71
[2019-11-20] MEDS: ADVAIR HFA 230/21MCG INHALER INH SCH (20:10)
[2019-11-20] MEDS: DOCUSATE SODIUM 100 MG CAP PO SCH (21:02)
[2019-11-20] MEDS: lisinopriL 5 MG TAB PO SCH (21:03)
[2019-11-20] MEDS: SENNA 8.6 MG TAB (SENOKOT) PO SCH (21:04)
[2019-11-21] MEDS: oxyCODONE 5MG TAB PO PRN ×4 (00:24→16:25)
[2019-11-21] MEDS: ONDANSETRON 4 MG TAB PO PRN (04:54)
[2019-11-21] MEDS: ADVAIR HFA 230/21MCG INHALER INH SCH ×2 (07:37→19:47)
[2019-11-21] MEDS: IPRATROPIUM 0.5MG/ALBUTEROL 2.5MG INH SOL UD 3ML (DUONEB) NEB SCH ×3 (08:00→19:47)
[2019-11-21] MEDS: REMEDY PHYTOPLEX Z-GUARD PASTE 113GM TUBE (FROM STOREROOM PRODUCT) TOP SCH ×3 (09:00→21:00)
[2019-11-21] MEDS: FLUoxetine 20 MG CAP PO SCH (09:00)
[2019-11-21] MEDS: DOCUSATE SODIUM 100 MG CAP PO SCH ×2 (09:00→21:00)
[2019-11-21] MEDS: MULTIVITAMINS/MINERALS THERAP 1 TAB PO SCH (09:58)
[2019-11-21] MEDS: ENOXAPARIN 40MG/0.4ML SYRINGE (J1650 PER 10MG) SC SCH (09:58)
[2019-11-21] MEDS: FOLIC ACID 1 MG TAB PO SCH (09:58)
[2019-11-21] MEDS: GABAPENTIN 400 MG CAP PO SCH ×3 (09:59→22:15)
[2019-11-21] MEDS: rOPINIRole 0.25 MG TAB(REQUIP) PO SCH ×3 (09:59→22:15)
[2019-11-21] MEDS: predniSONE 10 MG TAB PO SCH (09:59)
[2019-11-21] MEDS: ROSUVASTATIN 10 MG TAB (CRESTOR) PO SCH (09:59)
[2019-11-21] MEDS: TORSEMIDE 10 MG TABLET PO SCH (09:59)
[2019-11-21] MEDS: PANTOPRAZOLE 40MG TAB (PROTONIX) PO SCH (09:59)
[2019-11-21] MEDS: ACETAMINOPHEN 500 MG TAB PO SCH ×3 (09:59→22:15)
--- NOTE | 2019-11-21 10:54 | HPEPDOC ---
[facility] Medical History & Physical Date of Admission Nov 20, 2019 Date of Service: Nov 21, 2019 Attending Physician: WILLIAMS REYNOSO MD History and Physical CHIEF COMPLAINT: ARU medicine consult HPI: Mrs. Zimmerman is a 69yo W with history of lung cancer s/p right lobe lobectomy, COPD, CKD2, cervical myelopathy, CHINTAN, morbid obesity, HTN, HLD, CBP with bilateral lower extremity weakness who was recently admitted to [facility] on 11-12-19 for arthrodesis of T9-L2 with laminectomy and decompression from T11-L1 with T12 corpectomy with cage placement for a burst T12 fracture by orthopedics, and her post-op course was unremarkable except for expectant pain within her prior levels. She was evaluated by PT and deemed appropriate for acute rehab and was discharged to [facility] ARU on 11/20/2019. REVIEW OF SYSTEMS: This morning, she reports back pain that is well controlled by her current pain regimen and is participating in occupational therapy during my evaluation. She otherwise denies any fever, chills, saddle anesthesia, bowel or bladder incontinence or retention. A 10 point ROS was otherwise negative. PAST MEDICAL HISTORY: Lung cancer s/p right lobe lobectomy, COPD, CKD2, cervical myelopathy, CHINTAN, morbid obesity, HTN, HLD, CBP with bilateral lower extremity weakness who was recently admitted to [facility] on 11-12-19 for arthrodesis of T9-L2 with laminectomy and decompression from T11-L1 with T12 corpectomy with cage plac ement for a burst T12 fracture by orthopedics PAST SURGICAL HISTORY: Right upper lobectomy, left wrist and arm surgery, chiari malformation, neck surgery, lumbar fusion, gall bladder removal SOCIAL HISTORY: Denies alcohol, smoking or illicit drug use. PHYSICAL EXAMINATION: VITAL SIGNS: Please see below. GENERAL: No acute distress. Very pleasant and conversant HEENT: PERRLA, EOMI, MMM CARDIOVASCULAR: RRR, no mrg LUNGS: CTAB ABDOMEN: Normoactive sounds, soft, NTND NEUROLOGICAL: CN2-12 grossly intact, no dysarthria, 5/5 strength in all 4 extremities, sensation intact PSYCH: Aox3 LABORATORY DATA: Please see below. Reviewed. ASSESSMENT:69-year-old with a history ofo lung CA who recently underwent for arthrodesis of T9-L2 with laminectomy and decompression from T11-L1 with T12 corpectomy with cage placement for a burst T12 fracture by orthopedics, now admitted to the ARU for physical rehabilitation. PLAN: T12 burst fracture with spinal stenosis s/p laminectomy. -Is to follow up with her surgeon, Dr. Colón in 2 weeks. -pain regimen: continue current gabapentin, celecoxib, Tylenol, oxycodone, methocarbamol -encourage participation with PT and OT. As per nursing report, was refusing PT and threatening to sign out AMA. Chronic systolic CHF -continue fluid restrict -continue home daily torsemide -daily weights -strict I/Os HTN: -continue home lisinopril HLD: -continue home statin COPD: no evidence of decompensation, though noted to have had a mild exacerbation while at [facility] and therefore on prednisone for a short 5 day burst -continue home advair, and albuterol and duonebs prn -no noted hypoxemia, to require O2 supplementation -complete prednisone course that was prescribed at [facility] for COPD exacerbation CHITNAN: -may use own nocturnal CPAP, with goal >88% CKD, stage 2: -monitor daily BMP GERD: -continue home protonix History of migraines: -sumatriptan prn for headaches Restless leg syndrome -continue Requip Depression: - continue home prozac DVT ppx: continue with lovenox and teds Vital Signs Vital Signs Date Time Temp Pulse Resp B/P (MAP) Pulse Ox O2 Delivery O2 Flow Rate FiO2 11/21/19 06:00 96.5 91 20 93 Nasal Cannula 2.0 11/20/19 21:03 158/71 Home Medications Scheduled Atorvastatin Calcium (Atorvastatin Calcium) 20 Mg Tablet, 20 MG PO QHS CHANGED FROM CRESTOR 10MG AT [facility] Enoxaparin Sodium (Lovenox) 40 Mg/0.4 Ml Syringe, 40 MG SC DAILY STARTED AT [facility] Ferrous Sulfate (Ferrous Sulfate) 325 Mg Tablet, 325 MG PO DAILY Fluoxetine Hcl (Fluoxetine HCl) 40 Mg Cap, 40 MG PO DAILY Fluticasone Propion/Salmeterol (Advair Hfa 230-21 Mcg Inhaler) 1 Aer Aer, 2 PUFF INH BID Gabapentin (Gabapentin) 400 Mg Cap, 400 MG PO TID Guar Gum (Nutrisource Fiber) 1 Each Packet, 2 PACKET PO DAILY STARTED AT [facility] Latanoprost (Xalatan) 0.005% 2.5ML Drops, 1 DROP OU QHS Lisinopril (Lisinopril) 5 Mg Tab, 5 MG PO QHS Multivitamins (Thera M Plus Tablet) 1 Each Tablet, 1 TAB PO DAILY Pantoprazole Sodium (Pantoprazole Sodium) 40 Mg Tablet.dr, 40 MG PO DAILY Polyethylene Glycol 3350 (Miralax) 119 Gm Powder, 17 GM PO DAILY STARTED AT [facility] Ropinirole HCl (Ropinirole HCl) 0.25 Mg Tablet, 0.25 MG PO TID Sennosides/Docusate Sodium (Senna-S Tablet) 1 Each Tablet, 2 TAB PO QHS STARTED AT [facility] Torsemide (Torsemide) 10 Mg Tab, 10 MG PO DAILY Scheduled PRN Acetaminophen (Acetaminophen) 325 Mg Tablet, 650 MG PO Q6H PRN for PAIN Albuterol Sulfate (Ventolin Hfa) 108 Mcg/Act Aer, 2 PUFFS INH Q4H PRN for SHORTNESS OF BREATH Celecoxib (Celecoxib) 200 Mg Capsule, 200 MG PO BID PRN for PAIN Magnesium Hydroxide (Milk of Magnesia) 400 Mg/5 Ml Oral.susp, 30 ML PO DAILY PRN for CONSTIPATION Methocarbamol (Methocarbamol) 500 Mg Tablet, 500 MG PO Q6H PRN for SPASMS STARTED AT [facility] Oxycodone HCl (Oxycodone HCl) 5 Mg Tablet, 10 MG PO Q4H PRN for SEVERE PAIN (PS 8-10) STARTED AT [facility] Oxycodone HCl/Acetaminophen (Oxycodone-Acetaminophen 10-325) 1 Tab Tab, 1 TAB PO TID PRN for PAIN Prednisone (Prednisone) 10 Mg Tablet, 10 MG PO DAILY PRN for SHORTNESS OF BREATH Sumatriptan Succinate (Sumatriptan Succinate) 100 Mg Tab, 100 MG PO DAILY PRN for MIGRAINE Allergies Coded Allergies: Benzodiazepines (Verified Allergy, Intermediate, DELERIUM, 11/20/19) pregabalin (Verified Allergy, Mild, FEET SWELLING, 11/20/19) fentanyl (Verified Adverse Reaction, Mild, LOOPY, 11/20/19) morphine (Verified Adverse Reaction, Mild, SEDATION; profound, 11/20/19) A-FIB/CHADSVASC A-FIB History Current/History of A-Fib/PAF?: No Current PO Anticoag Therapy: No Age/Risk Factor Scoring CHADSVASC: CHADSVASC Response (Comments) Value Age Risk Factor Age 65-74 years old 1 Gender Risk Factor Female 1 Hx of CHF Yes 1 Hx of HTN Yes 1 Hx of Stroke/TIA/or VTE No 0 Hx of Diabetes No 0 Hx of Vascular Disease No 0 Total 4 Treatment Treatment ordered: NONE Reason Anticoagulant not given: Not indicated/[id number], Recent/upcomin procedure WILLIAMS REYNOSO MD Nov 21, 2019 08:55
[2019-11-21 14:00] VITALS: BP 139/77
[2019-11-21] MEDS ORDERED: OLANZapine 2.5MG TABLET PO PRN (14:00)
[2019-11-21] MEDS ORDERED: ROPI0.253 PO (14:53)
[2019-11-21] MEDS ORDERED: LISI-542 PO (14:53)
[2019-11-21] MEDS ORDERED: ADVA230A INH (14:53)
[2019-11-21] MEDS ORDERED: GABA-845 PO (14:53)
[2019-11-21] MEDS ORDERED: PANT-23 PO (14:53)
[2019-11-21] MEDS ORDERED: ATOR1TAB21 PO (14:53)
[2019-11-21] MEDS ORDERED: TORS10TA3 PO (14:53)
[2019-11-21] MEDS ORDERED: ASPI81TA26 PO (14:53)
[2019-11-21 17:48] LABS: BLOOD UREA NITROGEN 8 MG/DL (7-18); CARBON DIOXIDE LEVEL 31 MEQ/L (21-32); CHLORIDE LEVEL 100 MEQ/L (98-107); CREATININE FOR GFR 0.68 MG/DL (0.55-1.30); GLOMERULAR FILTRATION RATE > 60.0 (>45); GLUCOSE, FASTING 94 MG/DL (70-100); POTASSIUM SERUM 3.9 MEQ/L (3.5-5.1); SODIUM LEVEL 137 MEQ/L (136-145)
[2019-11-21 18:03] LABS: BASO # 0.1 10^3/uL (0.0-0.2); BASO % 0.4 % (0.0-1.0); EOS % 0.2 % (0.0-3.0); HEMATOCRIT 30.5 % (36.0-47.0); HEMOGLOBIN 9.7 g/dl (12.0-15.5); LYMPH # 0.9 10^3/uL (1.5-5.0); MEAN CORPUSCULAR HEMOGLOBIN 31.2 pg (27.0-33.0); MEAN CORPUSCULAR HGB CONC 31.8 g/dl (32.0-36.5); MEAN CORPUSCULAR VOLUME 98.1 fl (80.0-96.0); MONO % 7.5 % (0.0-5.0); NEUTROPHILS # 10.7 10^3/uL (1.5-8.5); NEUTROPHILS % 83.8 % (36.0-66.0); PLATELET COUNT, AUTOMATED 318 10^3/uL (150-450); RED BLOOD COUNT 3.11 10^6/uL (4.00-5.40); WHITE BLOOD COUNT 12.8 10^3/uL (4.0-10.0)
[2019-11-21 20:00] VITALS: BP 142/66
[2019-11-21] MEDS: SENNA 8.6 MG TAB (SENOKOT) PO SCH (21:00)
[2019-11-21] MEDS: lisinopriL 5 MG TAB PO SCH (22:16)
[2019-11-22] MEDS: oxyCODONE 5MG TAB PO PRN ×2 (03:04→20:48)
[2019-11-22 06:00] VITALS: BP 165/75
[2019-11-22 07:10] LABS: HEMATOCRIT 32.1 % (36.0-47.0); HEMOGLOBIN 10.2 g/dl (12.0-15.5); MEAN CORPUSCULAR HEMOGLOBIN 30.8 pg (27.0-33.0); MEAN CORPUSCULAR HGB CONC 31.8 g/dl (32.0-36.5); PLATELET COUNT, AUTOMATED 357 10^3/uL (150-450); RED BLOOD COUNT 3.31 10^6/uL (4.00-5.40); WHITE BLOOD COUNT 13.1 10^3/uL (4.0-10.0)
[2019-11-22] MEDS: ADVAIR HFA 230/21MCG INHALER INH SCH ×2 (07:11→20:00)
[2019-11-22] MEDS: IPRATROPIUM 0.5MG/ALBUTEROL 2.5MG INH SOL UD 3ML (DUONEB) NEB SCH ×3 (07:11→20:00)
[2019-11-22 07:29] LABS: BLOOD UREA NITROGEN 9 MG/DL (7-18); CALCIUM LEVEL 9.1 MG/DL (8.8-10.2); CARBON DIOXIDE LEVEL 30 MEQ/L (21-32); CHLORIDE LEVEL 102 MEQ/L (98-107); CREATININE FOR GFR 0.63 MG/DL (0.55-1.30); GLOMERULAR FILTRATION RATE > 60.0 (>45); GLUCOSE, FASTING 91 MG/DL (70-100); POTASSIUM SERUM 3.5 MEQ/L (3.5-5.1); SODIUM LEVEL 140 MEQ/L (136-145)
[2019-11-22] MEDS: REMEDY PHYTOPLEX Z-GUARD PASTE 113GM TUBE (FROM STOREROOM PRODUCT) TOP SCH ×3 (09:00→20:51)
[2019-11-22] MEDS: ENOXAPARIN 40MG/0.4ML SYRINGE (J1650 PER 10MG) SC SCH (10:45)
[2019-11-22] MEDS: TORSEMIDE 10 MG TABLET PO SCH (10:46)
[2019-11-22] MEDS: FLUoxetine 20 MG CAP PO SCH (10:46)
[2019-11-22] MEDS: ACETAMINOPHEN 500 MG TAB PO SCH ×3 (10:46→20:50)
[2019-11-22] MEDS: GABAPENTIN 400 MG CAP PO SCH ×3 (10:46→20:50)
[2019-11-22] MEDS: ROSUVASTATIN 10 MG TAB (CRESTOR) PO SCH (10:46)
[2019-11-22] MEDS: FOLIC ACID 1 MG TAB PO SCH (10:46)
[2019-11-22] MEDS: DOCUSATE SODIUM 100 MG CAP PO SCH ×2 (10:47→20:48)
[2019-11-22] MEDS: PANTOPRAZOLE 40MG TAB (PROTONIX) PO SCH (10:47)
[2019-11-22] MEDS: MULTIVITAMINS/MINERALS THERAP 1 TAB PO SCH (10:47)
[2019-11-22] MEDS: FERROUS SULFATE 325MG TAB PO SCH (10:47)
[2019-11-22] MEDS: predniSONE 10 MG TAB PO SCH (10:47)
[2019-11-22] MEDS: rOPINIRole 0.25 MG TAB(REQUIP) PO SCH ×3 (10:47→20:50)
[2019-11-22 14:00] VITALS: BP 116/62
[2019-11-22 20:00] VITALS: BP 150/94
[2019-11-22] MEDS: SENNA 8.6 MG TAB (SENOKOT) PO SCH (20:50)
[2019-11-22] MEDS: lisinopriL 5 MG TAB PO SCH (20:50)
[2019-11-23] MEDS: oxyCODONE 5MG TAB PO PRN ×5 (02:33→20:11)
[2019-11-23 06:23] VITALS: BP 140/68
[2019-11-23] MEDS: rOPINIRole 0.25 MG TAB(REQUIP) PO SCH ×3 (07:26→20:12)
[2019-11-23] MEDS: FOLIC ACID 1 MG TAB PO SCH (07:27)
[2019-11-23] MEDS: MULTIVITAMINS/MINERALS THERAP 1 TAB PO SCH (07:27)
[2019-11-23] MEDS: PANTOPRAZOLE 40MG TAB (PROTONIX) PO SCH (07:27)
[2019-11-23] MEDS: FLUoxetine 20 MG CAP PO SCH (07:27)
[2019-11-23] MEDS: GABAPENTIN 400 MG CAP PO SCH ×3 (07:27→20:12)
[2019-11-23] MEDS: ROSUVASTATIN 10 MG TAB (CRESTOR) PO SCH (07:27)
[2019-11-23] MEDS: predniSONE 10 MG TAB PO SCH (07:27)
[2019-11-23] MEDS: REMEDY PHYTOPLEX Z-GUARD PASTE 113GM TUBE (FROM STOREROOM PRODUCT) TOP SCH ×3 (07:28→20:13)
[2019-11-23] MEDS: ACETAMINOPHEN 500 MG TAB PO SCH ×3 (07:28→20:12)
[2019-11-23] MEDS: DOCUSATE SODIUM 100 MG CAP PO SCH ×2 (07:28→20:12)
[2019-11-23] MEDS: ENOXAPARIN 40MG/0.4ML SYRINGE (J1650 PER 10MG) SC SCH (07:28)
[2019-11-23] MEDS: TORSEMIDE 10 MG TABLET PO SCH (07:29)
[2019-11-23] MEDS: IPRATROPIUM 0.5MG/ALBUTEROL 2.5MG INH SOL UD 3ML (DUONEB) NEB SCH ×3 (07:31→19:46)
[2019-11-23] MEDS: ADVAIR HFA 230/21MCG INHALER INH SCH ×2 (07:31→19:46)
[2019-11-23 14:00] VITALS: BP 147/68
[2019-11-23] MEDS: lisinopriL 5 MG TAB PO SCH (20:12)
[2019-11-23 20:56] VITALS: BP 152/74
[2019-11-23] MEDS: SENNA 8.6 MG TAB (SENOKOT) PO SCH (21:00)
[2019-11-23] MEDS: ONDANSETRON 4 MG TAB PO PRN (23:03)
[2019-11-24 06:14] VITALS: BP 150/67
[2019-11-24] MEDS: IPRATROPIUM 0.5MG/ALBUTEROL 2.5MG INH SOL UD 3ML (DUONEB) NEB SCH ×3 (07:16→19:53)
[2019-11-24] MEDS: ADVAIR HFA 230/21MCG INHALER INH SCH ×2 (07:16→19:53)
[2019-11-24] MEDS: TORSEMIDE 10 MG TABLET PO SCH (07:58)
[2019-11-24] MEDS: MULTIVITAMINS/MINERALS THERAP 1 TAB PO SCH (07:58)
[2019-11-24] MEDS: rOPINIRole 0.25 MG TAB(REQUIP) PO SCH ×3 (07:58→20:35)
[2019-11-24] MEDS: DOCUSATE SODIUM 100 MG CAP PO SCH ×2 (07:58→20:36)
[2019-11-24] MEDS: FOLIC ACID 1 MG TAB PO SCH (07:58)
[2019-11-24] MEDS: PANTOPRAZOLE 40MG TAB (PROTONIX) PO SCH (07:58)
[2019-11-24] MEDS: predniSONE 10 MG TAB PO SCH (07:59)
[2019-11-24] MEDS: GABAPENTIN 400 MG CAP PO SCH ×3 (07:59→20:36)
[2019-11-24] MEDS: ROSUVASTATIN 10 MG TAB (CRESTOR) PO SCH (07:59)
[2019-11-24] MEDS: FERROUS SULFATE 325MG TAB PO SCH ×2 (07:59→08:03)
[2019-11-24] MEDS: ENOXAPARIN 40MG/0.4ML SYRINGE (J1650 PER 10MG) SC SCH (08:00)
[2019-11-24] MEDS: FLUoxetine 20 MG CAP PO SCH (08:00)
[2019-11-24] MEDS: REMEDY PHYTOPLEX Z-GUARD PASTE 113GM TUBE (FROM STOREROOM PRODUCT) TOP SCH ×3 (08:00→20:37)
[2019-11-24] MEDS: ACETAMINOPHEN 500 MG TAB PO SCH ×3 (08:00→20:36)
[2019-11-24] MEDS: oxyCODONE 5MG TAB PO PRN ×3 (08:01→16:31)
[2019-11-24 14:00] VITALS: BP 129/79
[2019-11-24 20:00] VITALS: BP 105/54
[2019-11-24 20:36] VITALS: BP 105/54
[2019-11-24] MEDS: SENNA 8.6 MG TAB (SENOKOT) PO SCH (20:36)
[2019-11-24] MEDS: lisinopriL 5 MG TAB PO SCH (20:36)
[2019-11-25 05:47] VITALS: BP 113/66
[2019-11-25 06:11] LABS: HEMATOCRIT 30.2 % (36.0-47.0); HEMOGLOBIN 9.4 g/dl (12.0-15.5); MEAN CORPUSCULAR HEMOGLOBIN 30.2 pg (27.0-33.0); MEAN CORPUSCULAR HGB CONC 31.1 g/dl (32.0-36.5); MEAN CORPUSCULAR VOLUME 97.1 fl (80.0-96.0); PLATELET COUNT, AUTOMATED 323 10^3/uL (150-450); RED BLOOD COUNT 3.11 10^6/uL (4.00-5.40); WHITE BLOOD COUNT 12.5 10^3/uL (4.0-10.0)
[2019-11-25] MEDS: oxyCODONE 5MG TAB PO PRN (06:16)
[2019-11-25 06:36] LABS: BLOOD UREA NITROGEN 20 MG/DL (7-18); CALCIUM LEVEL 8.2 MG/DL (8.8-10.2); CARBON DIOXIDE LEVEL 25 MEQ/L (21-32); CHLORIDE LEVEL 101 MEQ/L (98-107); GLOMERULAR FILTRATION RATE > 60.0 (>45); GLUCOSE, FASTING 105 MG/DL (70-100); POTASSIUM SERUM 4.2 MEQ/L (3.5-5.1); SODIUM LEVEL 133 MEQ/L (136-145)
[2019-11-25] MEDS: IPRATROPIUM 0.5MG/ALBUTEROL 2.5MG INH SOL UD 3ML (DUONEB) NEB SCH (07:29)
[2019-11-25] MEDS: ADVAIR HFA 230/21MCG INHALER INH SCH (07:29)
[2019-11-25] MEDS: predniSONE 10 MG TAB PO SCH (09:18)
[2019-11-25] MEDS: ENOXAPARIN 40MG/0.4ML SYRINGE (J1650 PER 10MG) SC SCH (09:18)
[2019-11-25] MEDS: MULTIVITAMINS/MINERALS THERAP 1 TAB PO SCH (09:18)
[2019-11-25] MEDS: TORSEMIDE 10 MG TABLET PO SCH (09:19)
[2019-11-25] MEDS: ROSUVASTATIN 10 MG TAB (CRESTOR) PO SCH (09:19)
[2019-11-25] MEDS: GABAPENTIN 400 MG CAP PO SCH (09:19)
[2019-11-25] MEDS: DOCUSATE SODIUM 100 MG CAP PO SCH (09:19)
[2019-11-25] MEDS: FOLIC ACID 1 MG TAB PO SCH (09:19)
[2019-11-25] MEDS: FLUoxetine 20 MG CAP PO SCH (09:19)
[2019-11-25] MEDS: rOPINIRole 0.25 MG TAB(REQUIP) PO SCH (09:19)
[2019-11-25] MEDS: PANTOPRAZOLE 40MG TAB (PROTONIX) PO SCH (09:19)
[2019-11-25] MEDS: ACETAMINOPHEN 500 MG TAB PO SCH (09:20)
[2019-11-25] MEDS: REMEDY PHYTOPLEX Z-GUARD PASTE 113GM TUBE (FROM STOREROOM PRODUCT) TOP SCH (09:20)
[2019-11-25 10:19] LABS: C REACTIVE PROTEIN QUANTITATIV 4.74 MG/DL (0.00-0.30)
[2019-11-25 10:38] LABS: C REACTIVE PROTEIN QUANTITATIV 5.33 MG/DL (0.00-0.30)
[2019-11-25] MEDS ORDERED: NS 1,000 ML IV ONE (11:15)
[2019-11-25] MEDS ORDERED: VANCOMYCIN HCL 2,000 MG in IV FLUID PLACE HOLDER 1 EA IV SCH (11:15)
[2019-11-25 11:34] VITALS: BP 136/58
[2019-11-25] MEDS ORDERED: PIPERACILLIN/TAZOBACTAM SOD 4.5 GM in D5W MINI-BAG PLUS 50 ML IV SCH (12:00)
--- NOTE | 2019-11-25 12:09 | IPNPDOC ---
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 Vital were taken with mild tachycardia of HR 102, BP stable, no fever. Patient reports she feels weak and shaky and understands she will need to be evaluated by her surgeon as an inpatient. REVIEW OF SYSTEMS: The following is a completed review of systems and has been reviewed. Review of systems otherwise unremarkable. PAIN: Patient self reports low back pain EYES: No recent vision changes EARS, NOSE, & THROAT: No throat pain, or dysphagia, or rhinorrhea CARDIOVASCULAR: Denies chest pain or palpitations PULMONARY: Denies shortness of breath GASTROINTESTINAL: Denies constipation/diarrhea GENITOURINARY: denies dysuria or retention MUSCULOSKELETAL: low back pain NEUROLOGICAL:denies paresthesias HEMATOLOGICAL: denies easy bruising SKIN: lumbar incision PSYCHIATRIC: Unremarkable All other review of systems found to be negative. PHYSICAL EXAMINATION: VITAL SIGNS: Please see below. GENERAL: Pleasant and cooperative. No acute distress. HEENT: PERRL. Extraocular movements intact. Clear conjunctiva CARDIOVASCULAR: Regular rate and rhythm. No murmurs, rubs, or gallops LUNGS: Clear to auscultation bilaterally. No wheezes. No rhonchi ABDOMEN: Soft, nontender, nondistended. Positive bowel sounds. Normal active bowel sounds NEUROLOGICAL: Alert and oriented times three. Cranial nerves II through XII grossly intact. Sensation grossly intact in bilat LE EXTREMITIES: 5\5 strength bilateral upper extremities. 5-\5 strength right lower extremity. 5-/5 strength in left lower extremity. SKIN:lumbar incision appears boggy with scant exudate, no induration, bottom 3rd with foul smelling brown drainage ASSESSMENT:69-year-old F with past medical history of chronic low back pain who presents status post T12 burst facture with laminectomy PLAN: 1. PT/OT advance gait and ADLs, strengthen/stretch/maintain ROM all 4 limbs 2. ortho- T12 burst fracture with spinal stenosis s/p laminectomy, spinal precautions- -concern today for surgical site infection and sepsis given elevated CRP, tachycardia, appearance of wound , and persistent leukocytosis, per staff patient had altered mental status in the morning-->discussed case with hospitalist, will start IVF, Vanco and zosyn for empiric coverage, spoke with Dr. Colón who has agreed to admit patient at [facility] for suspected surgical site infection, will defer further imaging here as patient will optimally be treated at [facility] in the event she needs further surgery/procedure- patient will be transferred and is currently in stable condition with fluid and antibiotic support -dressing changes increased over the weekend to q6h for persistent drainage 3. Cardiology chronic systolic CHF, fluid restrict, daily torsemide (monitor for SON in setting of CKD2) daily weights, medicine consulted to assist in overall management - HTN c/u lisinopril -HLD- c/u statin -f/u cardiology Dr. Briggs [phone] 2-4 weeks 4. Resp- hx of COPD and CHINTAN, daytime and nocturnal 02 for goal >88%, may use own CPAP if able to bring in -Duonebs, Advair, and albuterol prn -s/p 5 day course of oral steroids for COPD exacerbation 5. Renal- CKD2, monitor for SON 6. - monitor PVRs- olmedo placed today while receiving IVF 7. DVT ppx- lovenox and teds, switch to oral ASA 81 daily per DC recs upon d/c from ARU 8. GI ppx- protonix 9. Pain- gabapentin, celecoxib, Tylenol, oxycodone, methocarbamol -sumatriptan prn for headaches -restless leg, c/u Requip 10. Psych- Prozac for depression 11. Dispo- acute care transfer to [facility] Allergies Coded Allergies: Benzodiazepines (Verified Adverse Reaction, Intermediate, DELERIUM, 11/25/19) fentanyl (Verified Adverse Reaction, Mild, LOOPY, 11/20/19) morphine (Verified Adverse Reaction, Mild, SEDATION; profound, 11/20/19) pregabalin (Verified Adverse Reaction, Mild, FEET SWELLING, 11/25/19) Vital Signs Vital Signs Date Time Temp Pulse Resp B/P (MAP) Pulse Ox O2 Delivery O2 Flow Rate FiO2 11/25/19 06:46 15 11/25/19 05:47 98.2 96 113/66 (82) 98 Room Air 11/24/19 06:14 2.0 Laboratory Data CBC/BMP Laboratory Tests 11/25/19 05:51 Labs 24H Laboratory Tests 2 11/25/19 05:51: Nucleated Red Blood Cells % (auto) 0.0, Anion Gap 7L, Glomerular Filtration Rate > 60.0, Calcium Level 8.2L, C-Reactive Protein, Quantitative 14.10H Current Medications Current Medications Current Medications Medications (Trade) Dose Ordered Sig/William Route PRN Reason Start Time Stop Time Status Last Admin Dose Admin Acetaminophen (Tylenol Tab) 1,000 mg TID PO 11/20/19 16:00 11/25/19 09:20 Albuterol Sulfate (Proventil Neb) 2.5 mg Q2HP PRN NEB SOB/WHEEZING 11/20/19 14:30 Albuterol/ Ipratropium (Duoneb (Ipr 0.5mg/Alb 2.5mg)) 3 ml RTID NEB 11/20/19 20:00 11/24/19 13:18 Bisacodyl (Dulcolax Suppository) 10 mg DAILYPRN PRN PA CONSTIPATION 11/20/19 14:30 Bisacodyl (Dulcolax Tab) 5 mg DAILYPRN PRN PO CONSTIPATION 11/20/19 14:30 Celecoxib (CeleBREX) 200 mg BIDP PRN PO PAIN 11/20/19 14:30 11/23/19 03:39 Docusate Sodium (Colace) 100 mg BID PO 11/20/19 21:00 11/25/19 09:19 Enoxaparin Sodium (Lovenox) 40 mg DAILY SC 11/21/19 09:00 11/25/19 09:18 Ferrous Sulfate (Ferrous Sulfate) 325 mg Q48H PO 11/22/19 09:00 11/22/19 10:47 Fluoxetine HCl (PROzac) 40 mg DAILY PO 11/21/19 09:00 11/25/19 09:19 Folic Acid (Folic Acid) 1 mg DAILY PO 11/21/19 09:00 11/25/19 09:19 Gabapentin (Neurontin) 400 mg TID PO 11/20/19 16:00 11/25/19 09:19 Home Med (Med Rec Complete!) ASDIRECTED XX 11/20/19 18:15 11/20/19 18:07 DC Lisinopril (Prinivil) 5 mg QHS PO 11/20/19 21:00 11/24/19 20:36 Methocarbamol (Robaxin) 500 mg Q6HP PRN PO spasm 11/20/19 14:30 11/21/19 13:56 DC Multivitamins (Theragram-M) 1 tab DAILY PO 11/21/19 09:00 11/25/19 09:18 Olanzapine (ZyPREXA) 2.5 mg Q6HP PRN PO AGITATION 11/21/19 14:00 11/24/19 01:37 Ondansetron HCl (Zofran) 4 mg Q6HP PRN PO NAUSEA 11/20/19 14:30 11/23/19 23:03 Oxycodone HCl (Roxicodone, Oxyir) 2.5 mg Q4HP PRN PO PAIN 11/21/19 14:00 11/23/19 16:01 DC 11/23/19 12:08 Oxycodone HCl (Roxicodone, Oxyir) 5 mg Q4HP PRN PO PAIN 11/20/19 14:30 11/21/19 13:57 DC 11/21/19 09:58 Oxycodone HCl (Roxicodone, Oxyir) 5 mg Q4HP PRN PO PAIN 11/23/19 16:00 11/25/19 06:16 Oxycodone HCl (Roxicodone, Oxyir) 5 mg Q6HP PRN PO PAIN 11/20/19 14:30 Cancel Pantoprazole Sodium (Protonix) 40 mg DAILY PO 11/21/19 09:00 11/25/19 09:19 Piperacillin Sod/ Tazobactam Sod 4.5 gm/Dextrose 50 ml @ 50 mls/hr Q6H IV 11/25/19 12:00 Prednisone (Deltasone) 10 mg DAILY PO 11/21/19 09:00 11/25/19 09:47 DC 11/25/19 09:18 Ropinirole HCl (Requip) 0.25 mg TID PO 11/20/19 16:00 11/25/19 09:19 Rosuvastatin Calcium (Crestor) 10 mg DAILY PO 11/21/19 09:00 11/25/19 09:19 Salmeterol Xinafoate/ Fluticasone (Advair Hfa 230/ ) 2 puff RBID INH 11/20/19 20:00 11/25/19 07:29 Senna (Senokot) 1 tab QHS PO 11/20/19 21:00 11/24/19 20:36 Sumatriptan Succinate (Imitrex) 100 mg DAILYPRN PRN PO headache 11/20/19 14:30 Torsemide (Demadex) 10 mg DAILY PO 11/21/19 09:00 11/25/19 09:19 Vancomycin HCl 2000 mg/IV Miscellaneous Supplies 40 ml @ 40 mls/hr Q8H IV 11/25/19 11:15 FLOR MARTINEZ MD Nov 25, 2019 12:09
[2019-11-25] MEDS ORDERED: LOVE1INJ SC (12:13)
[2019-11-25] MEDS ORDERED: OXYC-517 PO (12:15)
[2019-11-25] MEDS ORDERED: VANCOMYCIN HCL 2,000 MG in D5W 500 ML IV ONE (12:30)
[2019-11-25 13:45] VITALS: BP 129/58
[2019-11-25] MEDS ORDERED: VANCOMYCIN HCL 1,000 MG, VIAL MATE ADAPTER 1 EACH in D5W 250 ML IV ONE (14:00)
[2019-11-25] MEDS ORDERED: VANCOMYCIN HCL 1,000 MG, VIAL MATE ADAPTER 1 EACH in D5W 250 ML IV SCH (21:00)
[2019-12-17] MEDS ORDERED: HALO2CON PO (17:00)
[2019-12-17] MEDS ORDERED: PANT40TA29 PO (17:00)
== END 2019-11-25 13:55 | disposition short-term general hospital (02) | DRG 560 ==
LOC: M PM&R 17:05
PROVIDERS: ADMIT Physical Medicine & Rehabilitation; ATTEND Physical Medicine & Rehabilitation
DX: S22.081D Stable burst fracture of T11-T12 vertebra, subsequent encounter for fracture with routine healing (principal); I13.0 Hypertensive heart and chronic kidney disease with heart failure and stage 1 through stage 4 chronic kidney disease, or unspecified chronic kidney disease; I50.22 Chronic systolic (congestive) heart failure; M50.00 Cervical disc disorder with myelopathy, unspecified cervical region; T81.49XA Infection following a procedure, other surgical site, initial encounter; T81.44XA Sepsis following a procedure, initial encounter; Z68.41 Body mass index [BMI] 40.0-44.9, adult; M48.061 Spinal stenosis, lumbar region without neurogenic claudication; R26.89 Other abnormalities of gait and mobility; J44.9 Chronic obstructive pulmonary disease, unspecified; R00.0 Tachycardia, unspecified; N18.2 Chronic kidney disease, stage 2 (mild); G25.81 Restless legs syndrome; G47.33 Obstructive sleep apnea (adult) (pediatric); E66.01 Morbid (severe) obesity due to excess calories; E78.5 Hyperlipidemia, unspecified; M54.5 Low back pain; Z85.118 Personal history of other malignant neoplasm of bronchus and lung; Z79.899 Other long term (current) drug therapy; Z90.2 Acquired absence of lung [part of]; Z88.5 Allergy status to narcotic agent; Z74.09 Other reduced mobility; Z88.8 Allergy status to other drugs, medicaments and biological substances; Y83.8 Other surgical procedures as the cause of abnormal reaction of the patient, or of later complication, without mention of misadventure at the time of the procedure

== ENCOUNTER 2019-12-17 08:14 | Inpatient (IN) | payer MEDICARE, BC, OTHER ==
[~2019-12-17] VITALS: Ht 160 cm; Wt 108.5 kg
[~2019-12-17 08:14] MED LIST changes: -AMLO1TAB24 PO; +AMLO5TAB6 PO; +APAP325T4 PO; +ASPI81TA26 PO; +ATOR1TAB21 PO; +CELE1CAP9 PO; +FERR325T18 PO; +LOVE1INJ SC; +METH1TAB40 PO; +MILKSUS3 PO; +MIRA3350 PO; +NUTRPAK PO; +OXYC-517 PO; +PANT-23 PO; -PANT40TA29 PO; +PANT40TA3 PO; +ROPI0.253 PO; +SENN-23 PO; +VITMTA PO; +XALA0.007 OU
--- NOTE | 2019-12-17 08:41 | HPEPDOC ---
[employer] Cook Note DATE OF ADMISSION: 12-17-19 DATE OF SERVICE: 12-18-19 TIME OF ADMISSION: Please refer to physician's admission order. SOURCE OF ADMISSION INFORMATION: [facility] and patient CHIEF COMPLAINT: s/p laminectomy fusion with hardware infection and sepsis HISTORY OF PRESENT ILLNESS: 70F pmh chronic diastolic CHF, CAD, COPD, CKD, anxiety/depression, HLD, HTN, morbid obesity, CHINTAN who initially underwent an arthrodesis of T9-L2 with laminectomy and decompression from T11-L1 with T12 corpectomy and cage placement for a burst T12 fracture on 11-14-19 and discharged to [facility] for rehab, but was transferred back to [facility] for sepsis and suspected surgical site infection on 11-25-19. MRI on 11-26-19 showed a fluid collection and she underwent debridement with washout complicated by dural tear on 11-27-19. She was noted to have E. coli bacteremia from her initial [facility] blood cultures and was transitioned from Vacno/ZOsyn to Ceftriaxone with her Vanco ultimately being discontinued due to SON. She then developed a large left pleural effusion that was tapped on 11-26-19 and found to exudative and was transferred to ICU for respiratory failure, hypotension, and new onset Afib. She was also noted to have pulmonary emobli and placed on a heparin drip. Her washout OR culture eventually grew E. coli, Klebsiella and ampicillin sensitive enterococcus so she was switched to IV ampicillin and continued on Ceftriaxone for at least a 6 week course beginning on 12-01-19 to be followed by suppressive therapy for hardware infection. She was evaluated by therapy, found to be well below her prior level of function and deemed medically appropriate for discharge to ARU on 12-17-19. REVIEW OF SYSTEMS: The following is a completed review of systems and has been reviewed. Review of systems otherwise unremarkable. PAIN: Patient self reports minimal back pain EYES: No recent vision changes EARS, NOSE, & THROAT: No throat pain, or dysphagia, or rhinorrhea CARDIOVASCULAR: Denies chest pain or palpitations PULMONARY: Denies shortness of breath GASTROINTESTINAL: Denies constipation/diarrhea GENITOURINARY: denies dysuria MUSCULOSKELETAL: generalized weakness NEUROLOGICAL:denies tremor or paresthesias HEMATOLOGICAL: denies easy brusing SKIN: lumbar incision PSYCHIATRIC: +anxiety All other review of systems found to be negative. PAST MEDICAL HISTORY: as per HPI PAST SURGICAL HISTORY: Right upper lobectomy, left wrist and arm surgery, chiari malformation, neck surgery, lumbar fusion, gall bladder removal ALLERGIES: Please see below. MEDICATIONS: Please see below. SOCIAL HISTORY: No etoh/smoking/illicit drugs DIET:low sodium PHYSICAL EXAMINATION: VITAL SIGNS: Please see below. GENERAL: Pleasant and cooperative. No acute distress. HEENT: PERRL. Extraocular movements intact. Clear conjunctiva CARDIOVASCULAR: Regular rate and rhythm. No murmurs, rubs, or gallops LUNGS: Clear to auscultation bilaterally. No wheezes. No rhonchi ABDOMEN: Soft, nontender, nondistended. Positive bowel sounds. Normal active bowel sounds NEUROLOGICAL: Alert and oriented times three. Cranial nerves II through XII grossly intact. Sensation grossly intact in all 4limbs EXTREMITIES: 5\5 strength bilateral upper extremities. 5-\5 strength right lower extremity. 5-/5 strength in left lower extremity. +pitting edema bilat LE SKIN: lumbar incision c/d/i without induration or erythema no drainage, Left lower back abrasion LABORATORY DATA: Please see below. IMAGING:Imaging documentation personally reviewed by record FUNCTIONAL STATUS: Premorbid: Modified Independent with all activities of daily life as well as mobility On Admission: GOALS: Mod-I household distances, functional transfers, dressing, bathing, toileting, stairs ASSESSMENT:69-year-old F with past medical history of chronic low back pain who presents status post T12 burst facture with laminectomy complciated by hardware infection, dural tear, sepsis, and acute respiratory failure PLAN: 1. PT/OT advance gait and ADLs, strengthen/stretch/maintain ROM all 4 limbs 2. ortho- T12 burst fracture with spinal stenosis s/p laminectomy complicated by hardware infection and dural tear s/p washout spinal precautions -f/u Dr. Colón ortho [phone] -c/u daily/prn dressing changes for drainage, incision appears intact and mago- wound c/d/i, will monitor Hgb for blood loss, patient clinically stable 3. ID- patient with E. coli bacteremia and hardware wound culture positive for klebsiella, E coli, and gram sensitive enterococcus- c/u Ceftriaxone and ampicillin for at least 6 weeks from 11/30 to be followed by suppressive therapy, will consult Dr. Muse for assistance 3. Cardiology chronic systolic CHF, fluid restrict, daily lasix (monitor for SON in setting of CKD2) daily weights, medicine consulted to assist in overall management - new onset Afib c/u metoprolol and lovenox -HLD- c/u statin -f/u cardiology Dr. Briggs [phone] 4. Resp- hx of COPD and CHINTAN, daytime and nocturnal 02 for goal >88%, may use own CPAP if able to bring in -Duonebs, Advair, and albuterol prn -s/p drainage of left pleural effusion - PE s/p heparin drip c/u Lovenox 100mg BID until cleared by neurosurgery to switch to oral AC 5. Renal- CKD2, monitor for SON, c/u lasix for edema, will consider inhouse renal consult 6. - monitor PVRs 7. DVT ppx- 8. GI ppx- protonix 9. Pain- tylenol, oxycodone 10. Psych- haldol prn agitation 11. Neur- restless leg syndrome c/u requip 11. Dispo- tbd POST ADMISSION PHYSICIAN EVALUATION: Medical and functional status: Description of medical status, medical assessment: As above. Rehabilitation diagnosis and current and prior cold morbid medical conditions as above. Risk of complications and plans to mitigate them as above. Description of functional status current status is as above. Prior status as above. Status compared to preadmission: There are no clinically significant differences between the patient's current status and the information described on the preadmission screening document. Treatment plan anticipated: Treatment plan is as described above. Required disciplines including physical therapy, occupational therapy, others as noted above. Intensity of services: 3 hours a day, 6 days a week. Special considerations: There are no specific special or safety considerations that would likely preclude immediate implementation of an intensive rehabi litation program or subsequently influence the plan of care. ATTESTATION: Considering all the information above, it is my best judgment that this patient requires intensive rehabilitation therapy as described above and an inpatient hospital environment due to the complexity of nursing, medical, and rehabilitation needs required by the patient. Furthermore, this patient can reasonably be expected to participate in an benefit from an inpatient rehabilitation stay with an interdisciplinary team approach to the delivery of rehabilitation care under the direction and supervision of rehabilitation physician. PROGNOSIS: good ESTIMATED LENGTH OF STAY:18-21 days. PROJECTED DISCHARGE DESTINATION: Home with family support and any durable medical equipment required to increase functional safety and mobility. TIME SPENT COUNSELING AND COORDINATING INITIAL CARE: Greater than 70 minutes. Vital Signs Vital Signs Date Time Temp Pulse Resp B/P (MAP) Pulse Ox O2 Delivery O2 Flow Rate FiO2 12/17/19 15:00 97.7 85 20 154/67 (96) 91 Room Air 12/17/19 21:30 2.0 Home Medications Scheduled Ampicillin Sodium (Ampicillin Sodium) 2 Gm Vial, 2 GM IV Q4H, (Reported) FOR 6 WEEKS POST-OP, 01/10/20 Atorvastatin Calcium (Atorvastatin Calcium) 20 Mg Tablet, 20 MG PO QHS, (Reported) Ceftriaxone Sodium (Ceftriaxone) 2 Gm Vial, 2 GM IV Q12H, (Reported) FOR 6 WEEKS POST-OP, 01/10/20 Enoxaparin Sodium (Enoxaparin Sodium) 100 Mg/1 Ml Syringe, 100 MG SC Q12H, (Reported) Ferrous Sulfate (Ferrous Sulfate) 300 Mg/5 Ml Liquid, 325 MG PO DAILY, (Report ed) Furosemide (Furosemide) 20 Mg Tablet, 20 MG PO TID, (Reported) Lactobacillus Acidophilus (Acidophilus) 1 Each Tablet, 1 TAB PO BID, (Reported) Latanoprost (Xalatan) 0.005% 2.5ML Drops, 1 DROP OU QHS, (Reported) Metoprolol Tartrate (Metoprolol Tartrate) 25 Mg Tablet, 25 MG PO TID, (Reported) Pantoprazole Sodium (Pantoprazole Sodium) 40 Mg Tablet.dr, 40 MG PO DAILY, (Reported) Potassium Chloride (Potassium Chloride) 20 Meq Tab.er.prt, 20 MEQ PO BID, (Reported) Ropinirole HCl (Ropinirole HCl) 0.25 Mg Tablet, 0.25 MG PO TID, (Reported) Scheduled PRN Acetaminophen (Acetaminophen) 500 Mg Tablet, 1,000 MG PO Q6H PRN for PAIN / FEVER, (Reported) Albuterol Sulfate (Ventolin Hfa) 108 Mcg/Act Aer, 2 PUFFS INH Q4H PRN for SHORTNESS OF BREATH, (Reported) Haloperidol (Haloperidol Lactate) 2 Mg/1 Ml Oral.conc, 1 ML PO Q4H PRN for SEVERE ANXIETY/AGITATION, (Reported) Menthol/Zinc Oxide (Menthol-Zinc Oxide 0.45%-20%) 113 Gm Oint...g., 1 APPLIC TOP DAILY PRN for SKIN CARE, (Reported) Oxycodone HCl (Oxycodone HCl) 5 Mg Tablet, 10 MG PO Q4H PRN for PAIN, (Reported) Allergies Coded Allergies: Benzodiazepines (Verified Adverse Reaction, Intermediate, DELERIUM, 11/25/19) fentanyl (Verified Adverse Reaction, Mild, LOOPY, 11/20/19) morphine (Verified Adverse Reaction, Mild, SEDATION; profound, 11/20/19) pregabalin (Verified Adverse Reaction, Mild, FEET SWELLING, 11/25/19) A-FIB/CHADSVASC A-FIB History Current/History of A-Fib/PAF?: Yes Current PO Anticoag Therapy: Yes FLOR KHAN MD Dec 17, 2019 08:41
[2019-12-17 15:00] VITALS: BP 154/67
[2019-12-17] MEDS ORDERED: ACET-683 PO (16:13)
[2019-12-17] MEDS ORDERED: oxyCODONE 5MG TAB PO PRN (16:15)
[2019-12-17] MEDS ORDERED: BISACODYL 10 MG SUPP PR PRN (16:15)
[2019-12-17] MEDS ORDERED: ENOX100I3 SC (17:00)
[2019-12-17] MEDS ORDERED: ACID1TAB PO (17:00)
[2019-12-17] MEDS ORDERED: ATOR1TAB21 PO (17:00)
[2019-12-17] MEDS ORDERED: POTA20TA6 PO (17:00)
[2019-12-17] MEDS ORDERED: MENT113O4 TOP (17:00)
[2019-12-17] MEDS ORDERED: FURO20TA2 PO (17:00)
[2019-12-17] MEDS ORDERED: PANT40TA3 PO (17:00)
[2019-12-17] MEDS ORDERED: ROPI0.253 PO (17:00)
[2019-12-17] MEDS ORDERED: FERR5MLUD PO (17:00)
[2019-12-17] MEDS ORDERED: OXYC-517 PO (17:00)
[2019-12-17] MEDS ORDERED: [UNRECOGNIZED DRUG - CODE] PO (17:00)
[2019-12-17] MEDS ORDERED: CEFT1INJ65 IV (17:00)
[2019-12-17] MEDS ORDERED: METO25TA4 PO (17:00)
[2019-12-17] MEDS ORDERED: AMPI2INJ18 IV (17:00)
[2019-12-17] MEDS: oxyCODONE 5MG TAB PO PRN ×2 (17:26→22:42)
[2019-12-17] MEDS ORDERED: HALOPERIDOL 5MG/ML VIAL (J1630 PER 1) IM PRN (17:30)
[2019-12-17] MEDS: METOPROLOL TART 25 MG TABLET PO SCH ×2 (17:33→20:56)
[2019-12-17] MEDS: cefTRIAXone SOD 2 GM in D5W MINI-BAG PLUS 50 ML IV SCH (17:33)
[2019-12-17] MEDS: LACTOBACILLUS ACIDOPHILUS CAP (BACID) PO SCH ×2 (17:54→20:54)
[2019-12-17] MEDS: rOPINIRole 0.25 MG TAB(REQUIP) PO SCH ×2 (17:54→20:55)
[2019-12-17] MEDS: AMPICILLIN SOD 2 GM in D5W MINI-BAG PLUS 100 ML IV SCH ×2 (18:00→20:57)
[2019-12-17 18:17] LABS: CREATININE FOR GFR 0.73 MG/DL (0.55-1.30); GLOMERULAR FILTRATION RATE > 60.0 (>45)
[2019-12-17] MEDS ORDERED: cefTRIAXone SOD 2 GM in D5W MINI-BAG PLUS 50 ML IV SCH (19:00)
[2019-12-17 20:00] VITALS: BP 128/62
[2019-12-17] MEDS: ENOXAPARIN 100MG/1ML SYRINGE (J1650 PER 10MG) SC SCH (20:53)
[2019-12-17] MEDS: DOCUSATE SODIUM 100 MG CAP PO SCH (20:54)
[2019-12-17] MEDS: LATANOPROST 0.005% OPHTH SOLN 2.5 ML OU SCH (20:54)
[2019-12-17] MEDS: SENNA 8.6 MG TAB (SENOKOT) PO SCH (20:54)
[2019-12-17] MEDS: ATORVASTATIN 20 MG TAB PO SCH (20:55)
[2019-12-17] MEDS: POTASSIUM CHLORIDE 10 MEQ SR TABLET PO SCH (20:55)
[2019-12-17] MEDS: ACETAMINOPHEN 500 MG TAB PO SCH (20:56)
[2019-12-17] MEDS: REMEDY PHYTOPLEX Z-GUARD PASTE 113GM TUBE (FROM STOREROOM PRODUCT) TOP SCH (20:58)
[2019-12-18] VITALS (12 sets, daily range): BP systolic 138–159; BP diastolic 65–84
[2019-12-18] MEDS: AMPICILLIN SOD 2 GM in D5W MINI-BAG PLUS 100 ML IV SCH ×6 (02:02→22:28)
[2019-12-18] MEDS ORDERED: SODIUM CHLORIDE 0.9% INJ 10 ML SYR IV PRN (03:30)
[2019-12-18] MEDS ORDERED: CALCIUM CARBONATE 500 MG CHEW U/D PO ONE (03:30)
[2019-12-18] MEDS: METOPROLOL TART 25 MG TABLET PO SCH ×3 (05:33→20:37)
[2019-12-18] MEDS: ENOXAPARIN 100MG/1ML SYRINGE (J1650 PER 10MG) SC SCH ×2 (05:33→18:12)
[2019-12-18] MEDS: oxyCODONE 5MG TAB PO PRN ×2 (05:33→20:43)
[2019-12-18] MEDS: cefTRIAXone SOD 2 GM in D5W MINI-BAG PLUS 50 ML IV SCH ×2 (06:35→19:51)
[2019-12-18] MEDS: SODIUM CHLORIDE 0.9% INJ 10 ML SYR IV SCH ×2 (07:44→18:00)
[2019-12-18] MEDS: DOCUSATE SODIUM 100 MG CAP PO SCH ×2 (09:00→20:38)
[2019-12-18] MEDS: FERROUS SULFATE 300MG/5ML UDC LIQUID PO SCH (09:35)
[2019-12-18] MEDS: LACTOBACILLUS ACIDOPHILUS CAP (BACID) PO SCH ×3 (09:36→20:36)
[2019-12-18] MEDS: ACETAMINOPHEN 500 MG TAB PO SCH ×3 (09:37→20:38)
[2019-12-18] MEDS: POTASSIUM CHLORIDE 10 MEQ SR TABLET PO SCH ×2 (09:37→20:36)
[2019-12-18] MEDS: NYSTATIN 100,000 UNITS/GM TOPICAL PWD 15 GM TOP SCH ×2 (09:37→20:38)
[2019-12-18] MEDS: rOPINIRole 0.25 MG TAB(REQUIP) PO SCH ×3 (09:37→20:37)
[2019-12-18] MEDS: PANTOPRAZOLE 40MG TAB (PROTONIX) PO SCH (09:37)
[2019-12-18] MEDS: REMEDY PHYTOPLEX Z-GUARD PASTE 113GM TUBE (FROM STOREROOM PRODUCT) TOP SCH ×3 (09:38→20:41)
[2019-12-18] MEDS: FUROSEMIDE 20 MG TAB PO SCH (09:39)
[2019-12-18] MEDS: guaiFENesin 200 MG TAB PO SCH ×3 (11:24→20:37)
[2019-12-18 13:09] LABS: BASO % 0.2 % (0.0-1.0); EOS # 0.2 10^3/uL (0.0-0.5); EOS % 1.7 % (0.0-3.0); HEMATOCRIT 23.7 % (36.0-47.0); HEMOGLOBIN 7.2 g/dl (12.0-15.5); LYMPH # 1.5 10^3/uL (1.5-5.0); LYMPH % 15.7 % (24.0-44.0); MEAN CORPUSCULAR HEMOGLOBIN 30.4 pg (27.0-33.0); MEAN CORPUSCULAR HGB CONC 30.4 g/dl (32.0-36.5); MONO # 0.9 10^3/uL (0.0-0.8); MONO % 9.5 % (0.0-5.0); NEUTROPHILS # 6.7 10^3/uL (1.5-8.5); NEUTROPHILS % 70.8 % (36.0-66.0); PLATELET COUNT, AUTOMATED 185 10^3/uL (150-450); RED BLOOD COUNT 2.37 10^6/uL (4.00-5.40); WHITE BLOOD COUNT 9.5 10^3/uL (4.0-10.0)
[2019-12-18] MEDS ORDERED: diphenhydrAMINE 25MG CAP PO ONE (13:30)
[2019-12-18] MEDS ORDERED: ACETAMINOPHEN TAB 650MG DOSE (2X325MG) PO ONE (13:30)
[2019-12-18 13:33] LABS: BLOOD UREA NITROGEN 5 MG/DL (7-18); CALCIUM LEVEL 7.4 MG/DL (8.8-10.2); CARBON DIOXIDE LEVEL 37 MEQ/L (21-32); CHLORIDE LEVEL 99 MEQ/L (98-107); CREATININE FOR GFR 0.78 MG/DL (0.55-1.30); GLOMERULAR FILTRATION RATE > 60.0 (>45); GLUCOSE, FASTING 102 MG/DL (70-100); POTASSIUM SERUM 2.8 MEQ/L (3.5-5.1); SODIUM LEVEL 139 MEQ/L (136-145)
[2019-12-18] MEDS: IPRATROPIUM 0.5MG/ALBUTEROL 2.5MG INH SOL UD 3ML (DUONEB) NEB SCH ×2 (13:58→19:29)
[2019-12-18] MEDS: KCL 10MEQ/100ML SWI (KRUN) 10 MEQ in IV 1 EA IV SCH ×4 (14:41→21:41)
[2019-12-18] MEDS ORDERED: FUROSEMIDE 20MG/2ML VIAL (J1940) IV ONE (16:00)
--- NOTE | 2019-12-18 18:46 | HPEPDOC ---
[facility] Medical History & Physical Date of Admission Dec 18, 2019 Date of Service: Dec 18, 2019 Primary Care Physician: Sunil Gamboa Attending Physician: JAQUELINE DELGADILLO MD History and Physical ATTENDING: Dr. Jaqueline Delgadillo CHIEF COMPLAINT: Here for ARU from [place] HISTORY OF PRESENT ILLNESS: As per medical records; 70F pmh chronic diastolic CHF, CAD, COPD, CKD, anxiety/depression, HLD, HTN, morbid obesity, CHINTAN who initially underwent an arthrodesis of T9-L2 with laminectomy and decompression from T11-L1 with T12 corpectomy and cage placement for a burst T12 fracture on 11-14-19 and discharged to [facility] for rehab, but was transferred back to [facility] for sepsis and suspected surgical site infection on 11-25-19. MRI on 11-26-19 showed a fluid collection and she underwent debridement with washout complicated by dural tear on 11-27-19. She was noted to have E. coli bacteremia from her initial [facility] blood cultures and was transitioned from Vac no/ZOsyn to Ceftriaxone with her Vanco ultimately being discontinued due to SON. She then developed a large left pleural effusion that was tapped on 11-26-19 and found to exudative and was transferred to ICU for respiratory failure, hypotension, and new onset Afib. She was also noted to have pulmonary emobli and placed on a heparin drip. Her washout OR culture eventually grew E. coli, Klebsiella and ampicillin sensitive enterococcus so she was switched to IV ampicillin and continued on Ceftriaxone for at least a 6 week course beginning on 12-01-19 to be followed by suppressive therapy for hardware infection. She was evaluated by therapy, found to be well below her prior level of function and d eemed medically appropriate for discharge to ARU on 12-17-19. Pt denies CP/SOB/palpitations. No N/V/abd pain. No bleeding noted by pt. PAST MEDICAL HISTORY: As per HPI PAST SURGICAL HISTORY: SOCIAL HISTORY: Denies tobacco, alcohol FAMILY HISTORY: Non contributory ALLERGIES: Please see below. REVIEW OF SYSTEMS: HEENT: Denies sore throat/headache CARDIOVASCULAR: Denies chest pain/palpitations RESPIRATORY: Denies shortness of breath/cough GASTROINTESTINAL: denies nausea/vomiting GENITOURINARY: Denies dysuria/urinary urgency. MUSCULOSKELETAL: Denies myalgias/arthralgias NEUROLOGICAL: Denies any focal weakness HOME MEDICATIONS: Please see below. PHYSICAL EXAMINATION: Vitals: (see below) General: No acute distress, laying comfortably in bed. HEENT: Moist mucous membranes. Neck: No JVD or lymphadenopathy Cardiac: RRR, No murmurs Pulm: Clear to auscultation b/l. No wheezing, rhonchi Abd: NT/ND + BS Ext: 1+ edema BLE. No cyanosis Distal pulses intact. Strength 5/5 BLE. LABORATORY DATA: See below. ASSESSMENT/PLAN: 1. Hypokalemia - replaced earlier today; still has K runs. Repeat labs at 9pm tonight. 2. Acute on chronic anemia - Check FOBT. Has 2U PRBC ordered. Hemodynamically stable. No active bleeding 3. Recent E. COli bacteremia; wound cx with klebsiella/e coli, enterococcus per medical records on ceftriaxone/ampicillin ; ID has already been consulted. Afebrile. 4. Recent Burst fx, spinal stenosis s/p laminectomy, hardware infection. - management per ortho 5. Diastolic HF - compensated; may need additional diuresis post PRBC if pt gets volume overloaded 6. H/o COPD/CHINTAN - stable 7. AF on Lovenox/BB; ? if pt needs to remain on lovenox instead of NOAC (Monitor closely for bleeding) DVT Prophy: Pt on Lovenox Vital Signs Vital Signs Date Time Temp Pulse Resp B/P (MAP) Pulse Ox O2 Delivery O2 Flow Rate FiO2 12/18/19 18:24 96.6 82 18 156/84 97 Nasal Cannula 2.5 Laboratory Data Labs 24H Laboratory Tests 2 12/18/19 12:48: Immature Granulocyte % (Auto) 2.1, Neutrophils (%) (Auto) 70.8H, Lymphocytes (%) (Auto) 15.7L, Monocytes (%) (Auto) 9.5H, Eosinophils (%) (Auto) 1.7, Basophils (%) (Auto) 0.2, Neutrophils # (Auto) 6.7, Lymphocytes # (Auto) 1.5, Monocytes # (Auto) 0.9H, Eosinophils # (Auto) 0.2, Basophils # (Auto) 0.0, Nucleated Red Bl ood Cells % (auto) 0.0, Anion Gap 3L, Glomerular Filtration Rate > 60.0, Calcium Level 7.4L CBC/BMP Laboratory Tests 12/18/19 12:48 Home Medications Scheduled Ampicillin Sodium (Ampicillin Sodium) 2 Gm Vial, 2 GM IV Q4H FOR 6 WEEKS POST-OP, 01/10/20 Atorvastatin Calcium (Atorvastatin Calcium) 20 Mg Tablet, 20 MG PO QHS Ceftriaxone Sodium (Ceftriaxone) 2 Gm Vial, 2 GM IV Q12H FOR 6 WEEKS POST-OP, 01/10/20 Enoxaparin Sodium (Enoxaparin Sodium) 100 Mg/1 Ml Syringe, 100 MG SC Q12H Ferrous Sulfate (Ferrous Sulfate) 300 Mg/5 Ml Liquid, 325 MG PO DAILY Furosemide (Furosemide) 20 Mg Tablet, 20 MG PO TID Lactobacillus Acidophilus (Acidophilus) 1 Each Tablet, 1 TAB PO BID Latanoprost (Xalatan) 0.005% 2.5ML Drops, 1 DROP OU QHS Metoprolol Tartrate (Metoprolol Tartrate) 25 Mg Tablet, 25 MG PO TID Pantoprazole Sodium (Pantoprazole Sodium) 40 Mg Tablet.dr, 40 MG PO DAILY Potassium Chloride (Potassium Chloride) 20 Meq Tab.er.prt, 20 MEQ PO BID Ropinirole HCl (Ropinirole HCl) 0.25 Mg Tablet, 0.25 MG PO TID Scheduled PRN Acetaminophen (Acetaminophen) 500 Mg Tablet, 1,000 MG PO Q6H PRN for PAIN / FEVER Albuterol Sulfate (Ventolin Hfa) 108 Mcg/Act Aer, 2 PUFFS INH Q4H PRN for SHORTNESS OF BREATH Haloperidol (Haloperidol Lactate) 2 Mg/1 Ml Oral.conc, 1 ML PO Q4H PRN for SEVERE ANXIETY/AGITATION Menthol/Zinc Oxide (Menthol-Zinc Oxide 0.45%-20%) 113 Gm Oint...g., 1 APPLIC TOP DAILY PRN for SKIN CARE Oxycodone HCl (Oxycodone HCl) 5 Mg Tablet, 10 MG PO Q4H PRN for PAIN Allergies Coded Allergies: Benzodiazepines (Verified Adverse Reaction, Intermediate, DELERIUM, 11/25/19) fentanyl (Verified Adverse Reaction, Mild, LOOPY, 11/20/19) morphine (Verified Adverse Reaction, Mild, SEDATION; profound, 11/20/19) pregabalin (Verified Adverse Reaction, Mild, FEET SWELLING, 11/25/19) A-FIB/CHADSVASC A-FIB History Current/History of A-Fib/PAF?: No MIRA VALERA MD Dec 18, 2019 18:46
[2019-12-18] MEDS: ATORVASTATIN 20 MG TAB PO SCH (20:36)
[2019-12-18] MEDS: LATANOPROST 0.005% OPHTH SOLN 2.5 ML OU SCH (20:38)
[2019-12-18] MEDS: SENNA 8.6 MG TAB (SENOKOT) PO SCH (20:38)
[2019-12-18] MEDS ORDERED: LEVEMIR (INSULIN DETEMIR) 1 UNITS/0.01ML SC SCH (21:00)
[2019-12-18 21:26] LABS: BASO % 0.5 % (0.0-1.0); EOS # 0.1 10^3/uL (0.0-0.5); EOS % 1.6 % (0.0-3.0); HEMATOCRIT 27.3 % (36.0-47.0); HEMOGLOBIN 8.4 g/dl (12.0-15.5); LYMPH # 1.7 10^3/uL (1.5-5.0); MEAN CORPUSCULAR HEMOGLOBIN 30.2 pg (27.0-33.0); MEAN CORPUSCULAR HGB CONC 30.8 g/dl (32.0-36.5); MEAN CORPUSCULAR VOLUME 98.2 fl (80.0-96.0); MONO # 0.8 10^3/uL (0.0-0.8); MONO % 10.2 % (0.0-5.0); NEUTROPHILS # 5.3 10^3/uL (1.5-8.5); NEUTROPHILS % 64.9 % (36.0-66.0); PLATELET COUNT, AUTOMATED 166 10^3/uL (150-450); RED BLOOD COUNT 2.78 10^6/uL (4.00-5.40); WHITE BLOOD COUNT 8.2 10^3/uL (4.0-10.0)
[2019-12-18 21:40] LABS: BLOOD UREA NITROGEN 7 MG/DL (7-18); CALCIUM LEVEL 7.1 MG/DL (8.8-10.2); CARBON DIOXIDE LEVEL 33 MEQ/L (21-32); CHLORIDE LEVEL 102 MEQ/L (98-107); CREATININE FOR GFR 0.94 MG/DL (0.55-1.30); GLOMERULAR FILTRATION RATE > 60.0 (>45); GLUCOSE, FASTING 132 MG/DL (70-100); MAGNESIUM LEVEL 1.1 MG/DL (1.8-2.4); POTASSIUM SERUM 3.1 MEQ/L (3.5-5.1); SODIUM LEVEL 143 MEQ/L (136-145)
[2019-12-19] MEDS ORDERED: POTASSIUM CHLORIDE 10 MEQ SR TABLET PO ONE (00:30)
[2019-12-19] MEDS: AMPICILLIN SOD 2 GM in D5W MINI-BAG PLUS 100 ML IV SCH ×3 (02:03→09:45)
[2019-12-19] MEDS: oxyCODONE 5MG TAB PO PRN (05:02)
[2019-12-19 05:30] VITALS: BP 132/60
[2019-12-19] MEDS: ENOXAPARIN 100MG/1ML SYRINGE (J1650 PER 10MG) SC SCH (05:30)
[2019-12-19] MEDS: METOPROLOL TART 25 MG TABLET PO SCH (05:30)
[2019-12-19] MEDS: SODIUM CHLORIDE 0.9% INJ 10 ML SYR IV SCH (05:31)
[2019-12-19 06:00] VITALS: BP 132/60
[2019-12-19] MEDS: cefTRIAXone SOD 2 GM in D5W MINI-BAG PLUS 50 ML IV SCH (06:24)
[2019-12-19] MEDS: IPRATROPIUM 0.5MG/ALBUTEROL 2.5MG INH SOL UD 3ML (DUONEB) NEB SCH (07:13)
[2019-12-19] MEDS: FERROUS SULFATE 300MG/5ML UDC LIQUID PO SCH (08:44)
[2019-12-19] MEDS: guaiFENesin 200 MG TAB PO SCH (08:44)
[2019-12-19] MEDS: ACETAMINOPHEN 500 MG TAB PO SCH (08:45)
[2019-12-19] MEDS: LACTOBACILLUS ACIDOPHILUS CAP (BACID) PO SCH (08:45)
[2019-12-19] MEDS: DOCUSATE SODIUM 100 MG CAP PO SCH (08:45)
[2019-12-19] MEDS: FUROSEMIDE 20 MG TAB PO SCH (08:46)
[2019-12-19] MEDS: PANTOPRAZOLE 40MG TAB (PROTONIX) PO SCH (08:46)
[2019-12-19] MEDS: rOPINIRole 0.25 MG TAB(REQUIP) PO SCH (08:46)
[2019-12-19] MEDS: NYSTATIN 100,000 UNITS/GM TOPICAL PWD 15 GM TOP SCH (08:46)
[2019-12-19] MEDS: POTASSIUM CHLORIDE 10 MEQ SR TABLET PO SCH (08:46)
[2019-12-19] MEDS: REMEDY PHYTOPLEX Z-GUARD PASTE 113GM TUBE (FROM STOREROOM PRODUCT) TOP SCH (08:47)
[2019-12-19 08:54] LABS: HEMATOCRIT 30.1 % (36.0-47.0); HEMOGLOBIN 9.3 g/dl (12.0-15.5); MEAN CORPUSCULAR HEMOGLOBIN 29.8 pg (27.0-33.0); MEAN CORPUSCULAR HGB CONC 30.9 g/dl (32.0-36.5); MEAN CORPUSCULAR VOLUME 96.5 fl (80.0-96.0); PLATELET COUNT, AUTOMATED 194 10^3/uL (150-450); RED BLOOD COUNT 3.12 10^6/uL (4.00-5.40); WHITE BLOOD COUNT 9.6 10^3/uL (4.0-10.0)
[2019-12-19] MEDS ORDERED: MAGNESIUM OXIDE 400 MG TAB (MAG-OX) PO SCH (09:00)
[2019-12-19 09:28] LABS: BLOOD UREA NITROGEN 6 MG/DL (7-18); CALCIUM LEVEL 7.7 MG/DL (8.8-10.2); CARBON DIOXIDE LEVEL 33 MEQ/L (21-32); CHLORIDE LEVEL 104 MEQ/L (98-107); CREATININE FOR GFR 0.73 MG/DL (0.55-1.30); GLOMERULAR FILTRATION RATE > 60.0 (>45); GLUCOSE, FASTING 107 MG/DL (70-100); MAGNESIUM LEVEL 1.2 MG/DL (1.8-2.4); POTASSIUM SERUM 3.5 MEQ/L (3.5-5.1); SODIUM LEVEL 143 MEQ/L (136-145)
[2019-12-19] MEDS: MAG SULF 1GM/100ML (MAG RUN) 1 GM in IV 1 EA IV SCH ×2 (10:46→11:42)
[2019-12-19] MEDS ORDERED: OLANZapine 2.5MG TABLET PO SCH (21:00)
[2019-12-21] MEDS ORDERED: LACTOBACILLUS ACIDOPHILUS CAP (BACID) ONE ×3 (01:46→06:32)
[2019-12-21] MEDS ORDERED: oxyCODONE 5MG TAB ONE ×2 (01:46→05:40)
[2019-12-21] MEDS ORDERED: AMPICILLIN 2 GM VIAL (J0290 PER 500MG) ONE ×6 (01:46→08:54)
[2019-12-21] MEDS ORDERED: rOPINIRole 0.25 MG TAB(REQUIP) ONE ×4 (01:46→11:30)
[2019-12-21] MEDS ORDERED: METOPROLOL TART 25 MG TABLET ONE ×3 (01:46→08:51)
[2019-12-21] MEDS ORDERED: guaiFENesin 200 MG TAB ONE ×2 (01:46→05:40)
[2019-12-21] MEDS ORDERED: POTASSIUM CHLORIDE 10 MEQ SR TABLET ONE ×2 (05:40→06:32)
[2019-12-21] MEDS ORDERED: DOCUSATE SODIUM 100 MG CAP ONE (05:40)
[2019-12-21] MEDS ORDERED: MAGNESIUM OXIDE 400 MG TAB (MAG-OX) ONE ×2 (05:40→06:32)
[2019-12-21] MEDS ORDERED: cefTRIAXone SOD 2 GM VIAL (J0696 PER 250MG) ONE ×2 (05:40→06:32)
[2019-12-21] MEDS ORDERED: ENOXAPARIN 100MG/1ML SYRINGE (J1650 PER 10MG) ONE ×3 (05:40→11:30)
[2019-12-21] MEDS ORDERED: ATORVASTATIN 20 MG TAB ONE (05:40)
[2019-12-21] MEDS ORDERED: OLANZapine 2.5MG TABLET ONE ×4 (06:32→11:30)
[2019-12-21] MEDS ORDERED: FERROUS SULFATE 300MG/5ML UDC LIQUID ONE ×2 (06:32→08:51)
[2019-12-21] MEDS ORDERED: PANTOPRAZOLE 40MG TAB (PROTONIX) ONE (06:32)
[2019-12-21] MEDS ORDERED: FUROSEMIDE 20 MG TAB ONE (06:32)
[2019-12-21] MEDS ORDERED: guaiFENesin SYRUP 200 MG/10 ML UDC ONE (06:32)
[2019-12-21] MEDS ORDERED: ACETAMINOPHEN 500 MG TAB ONE ×2 (06:32→08:51)
[2019-12-21] MEDS ORDERED: POTASSIUM CHLORIDE 10 MEQ SR TABLET As Ordered ONE ×2 (07:38→20:49)
[2019-12-22] MEDS ORDERED: METOPROLOL TART 25 MG TABLET ONE ×3 (05:29→20:55)
[2019-12-22] MEDS ORDERED: cefTRIAXone SOD 2 GM VIAL (J0696 PER 250MG) ONE ×2 (05:29→17:14)
[2019-12-22] MEDS ORDERED: ENOXAPARIN 100MG/1ML SYRINGE (J1650 PER 10MG) ONE ×2 (05:29→17:14)
[2019-12-22] MEDS ORDERED: LACTOBACILLUS ACIDOPHILUS CAP (BACID) ONE ×3 (07:49→20:55)
[2019-12-22] MEDS ORDERED: MAGNESIUM OXIDE 400 MG TAB (MAG-OX) ONE ×2 (07:49→20:55)
[2019-12-22] MEDS ORDERED: guaiFENesin 200 MG TAB ONE ×3 (07:49→20:55)
[2019-12-22] MEDS ORDERED: rOPINIRole 0.25 MG TAB(REQUIP) ONE ×3 (07:49→20:55)
[2019-12-22] MEDS ORDERED: POTASSIUM CHLORIDE 10 MEQ SR TABLET ONE ×2 (07:49→20:55)
[2019-12-22] MEDS ORDERED: FUROSEMIDE 20 MG TAB ONE (07:49)
[2019-12-22] MEDS ORDERED: OLANZapine 2.5MG TABLET ONE ×2 (07:49→20:55)
[2019-12-22] MEDS ORDERED: POTASSIUM CHLORIDE 10 MEQ SR TABLET As Ordered ONE ×2 (07:49→20:55)
[2019-12-22] MEDS ORDERED: PANTOPRAZOLE 40MG TAB (PROTONIX) ONE (07:49)
[2019-12-22] MEDS ORDERED: FERROUS SULFATE 300MG/5ML UDC LIQUID ONE (07:49)
[2019-12-22] MEDS ORDERED: ACETAMINOPHEN 500 MG TAB ONE ×3 (07:49→20:55)
[2019-12-22] MEDS ORDERED: oxyCODONE 5MG TAB ONE ×3 (11:07→20:55)
[2019-12-22] MEDS ORDERED: ATORVASTATIN 20 MG TAB ONE (20:55)
[2019-12-23] MEDS ORDERED: MAGNESIUM OXIDE 400 MG TAB (MAG-OX) ONE ×2 (03:10→05:39)
[2019-12-23] MEDS ORDERED: ENOXAPARIN 100MG/1ML SYRINGE (J1650 PER 10MG) ONE (03:10)
[2019-12-23] MEDS ORDERED: POTASSIUM CHLORIDE 10 MEQ SR TABLET ONE ×2 (03:10→05:39)
[2019-12-23] MEDS ORDERED: ACETAMINOPHEN 500 MG TAB ONE ×3 (03:10→09:22)
[2019-12-23] MEDS ORDERED: METOPROLOL TART 25 MG TABLET ONE ×3 (03:10→09:22)
[2019-12-23] MEDS ORDERED: LACTOBACILLUS ACIDOPHILUS CAP (BACID) ONE ×3 (03:10→09:22)
[2019-12-23] MEDS ORDERED: ATORVASTATIN 20 MG TAB ONE (03:10)
[2019-12-23] MEDS ORDERED: cefTRIAXone SOD 2 GM VIAL (J0696 PER 250MG) ONE ×2 (03:10→05:39)
[2019-12-23] MEDS ORDERED: guaiFENesin 200 MG TAB ONE ×3 (03:10→09:22)
[2019-12-23] MEDS ORDERED: rOPINIRole 1MG TAB ONE (03:10)
[2019-12-23] MEDS ORDERED: oxyCODONE 5MG TAB ONE ×3 (05:39→09:22)
[2019-12-23] MEDS ORDERED: PANTOPRAZOLE 40MG TAB (PROTONIX) ONE (05:39)
[2019-12-23] MEDS ORDERED: FUROSEMIDE 20 MG TAB ONE (05:39)
[2019-12-23] MEDS ORDERED: OLANZapine 2.5MG TABLET ONE ×2 (09:12→09:22)
[2019-12-23] MEDS ORDERED: rOPINIRole 0.25 MG TAB(REQUIP) ONE ×2 (09:12→09:22)
[2019-12-23] MEDS ORDERED: POTASSIUM CHLORIDE 10 MEQ SR TABLET As Ordered ONE ×2 (09:20→21:11)
[2019-12-23] MEDS ORDERED: FERROUS SULFATE 325MG TAB ONE (09:22)
[2019-12-23] MEDS ORDERED: FERROUS SULFATE 325MG TAB As Ordered ONE (09:50)
[2019-12-23] MEDS ORDERED: AMPICILLIN 2 GM VIAL (J0290 PER 500MG) ONE (11:30)
[2019-12-24] MEDS ORDERED: rOPINIRole 0.25 MG TAB(REQUIP) ONE ×3 (03:25→08:55)
[2019-12-24] MEDS ORDERED: ACETAMINOPHEN 500 MG TAB ONE ×3 (03:25→08:45)
[2019-12-24] MEDS ORDERED: ATORVASTATIN 20 MG TAB ONE (03:25)
[2019-12-24] MEDS ORDERED: cefTRIAXone SOD 2 GM VIAL (J0696 PER 250MG) ONE (03:25)
[2019-12-24] MEDS ORDERED: POTASSIUM CHLORIDE 10 MEQ SR TABLET ONE ×2 (03:25→08:45)
[2019-12-24] MEDS ORDERED: guaiFENesin 200 MG TAB ONE (03:25)
[2019-12-24] MEDS ORDERED: oxyCODONE 5MG TAB ONE ×3 (03:25→08:55)
[2019-12-24] MEDS ORDERED: MAGNESIUM OXIDE 400 MG TAB (MAG-OX) ONE ×2 (05:31→08:55)
[2019-12-24] MEDS ORDERED: METOPROLOL TART 25 MG TABLET ONE ×2 (05:31→08:45)
[2019-12-24] MEDS ORDERED: DOCUSATE SODIUM 100 MG CAP ONE (05:31)
[2019-12-24] MEDS ORDERED: FUROSEMIDE 20 MG TAB ONE (05:31)
[2019-12-24] MEDS ORDERED: LACTOBACILLUS ACIDOPHILUS CAP (BACID) ONE ×3 (05:31→08:55)
[2019-12-24] MEDS ORDERED: ENOXAPARIN 100MG/1ML SYRINGE (J1650 PER 10MG) ONE ×2 (05:31→08:45)
[2019-12-24] MEDS ORDERED: cefTRIAXone SOD 250MG VIAL (J0696 PER 250MG) ONE (05:31)
[2019-12-24] MEDS ORDERED: OLANZapine 2.5MG TABLET ONE ×2 (08:45→08:55)
[2019-12-24] MEDS ORDERED: PANTOPRAZOLE 40MG TAB (PROTONIX) ONE (08:45)
[2019-12-24] MEDS ORDERED: POTASSIUM CHLORIDE 10 MEQ SR TABLET As Ordered ONE ×2 (08:47→20:54)
[2019-12-24] MEDS ORDERED: AMPICILLIN 2 GM VIAL (J0290 PER 500MG) ONE (13:00)
[2019-12-24] MEDS ORDERED: LIDOCAINE 1% MDV 20ML VIAL ONE (14:00)
[2019-12-25] MEDS ORDERED: D5W 50ML MINI-BAG PLUS ONE (05:47)
[2019-12-25] MEDS ORDERED: oxyCODONE 5MG TAB ONE ×2 (05:49→13:32)
[2019-12-25] MEDS ORDERED: cefTRIAXone SOD 2 GM VIAL (J0696 PER 250MG) ONE (05:49)
[2019-12-25] MEDS ORDERED: ENOXAPARIN 100MG/1ML SYRINGE (J1650 PER 10MG) ONE (05:49)
[2019-12-25] MEDS ORDERED: METOPROLOL TART 25 MG TABLET ONE ×2 (05:49→14:11)
[2019-12-25] MEDS ORDERED: guaiFENesin 200 MG TAB ONE (08:34)
[2019-12-25] MEDS ORDERED: POTASSIUM CHLORIDE 10 MEQ SR TABLET As Ordered ONE (08:35)
[2019-12-25] MEDS ORDERED: POTASSIUM CHLORIDE 10 MEQ SR TABLET ONE (08:35)
[2019-12-25] MEDS ORDERED: MAGNESIUM OXIDE 400 MG TAB (MAG-OX) ONE (08:35)
[2019-12-25] MEDS ORDERED: PANTOPRAZOLE 40MG TAB (PROTONIX) ONE (08:35)
[2019-12-25] MEDS ORDERED: rOPINIRole 0.25 MG TAB(REQUIP) ONE (08:35)
[2019-12-25] MEDS ORDERED: ACETAMINOPHEN 500 MG TAB ONE (08:35)
[2019-12-25] MEDS ORDERED: FUROSEMIDE 20 MG TAB ONE (08:35)
[2019-12-25] MEDS ORDERED: LACTOBACILLUS ACIDOPHILUS CAP (BACID) ONE (08:35)
[2019-12-25] MEDS ORDERED: OLANZapine 2.5MG TABLET ONE ×2 (08:35→09:00)
[2019-12-29] MEDS ORDERED: GABAPENTIN 300 MG CAP As Ordered ONE (20:19)
[2019-12-29] MEDS ORDERED: SENNA 8.6 MG TAB (SENOKOT) As Ordered ONE (20:20)
[2019-12-29] MEDS ORDERED: METOPROLOL TART 12.5 MG PER 1/2 TAB As Ordered ONE (20:20)
[2020-01-03] MEDS ORDERED: AMPICILLIN 2 GM VIAL (J0290 PER 500MG) ONE (18:00)
--- NOTE | 2020-01-15 15:05 | IPNPDOC ---
PM&R Progress Note DATE OF SERVICE: Dec 19, 2019 Coding Clerk Progress Note Subjective: Patient reports she is feeling well today and denies any new pain or decrease in function. REVIEW OF SYSTEMS: The following is a completed review of systems and has been reviewed. Review of systems otherwise unremarkable. PAIN: Patient self reports minimal back pain EYES: No recent vision changes EARS, NOSE, & THROAT: No throat pain, or dysphagia, or rhinorrhea CARDIOVASCULAR: Denies chest pain or palpitations PULMONARY: Denies shortness of breath GASTROINTESTINAL: Denies constipation/diarrhea GENITOURINARY: denies dysuria MUSCULOSKELETAL: generalized weakness NEUROLOGICAL:denies tremor or paresthesias HEMATOLOGICAL: denies easy bruising SKIN: lumbar incision PSYCHIATRIC: +anxiety All other review of systems found to be negative. PHYSICAL EXAMINATION: VITAL SIGNS: Please see below. GENERAL: Pleasant and cooperative. No acute distress. HEENT: PERRL. Extraocular movements intact. Clear conjunctiva CARDIOVASCULAR: Regular rate and rhythm. No murmurs, rubs, or gallops LUNGS: Clear to auscultation bilaterally. No wheezes. No rhonchi ABDOMEN: Soft, nontender, nondistended. Positive bowel sounds. Normal active bowel sounds NEUROLOGICAL: Alert and oriented times three. Cranial nerves II through XII grossly intact. Sensation grossly intact in all 4limbs EXTREMITIES: 5\5 strength bilateral upper extremities. 5-\5 strength right lower extremity. 5-/5 strength in left lower extremity. +pitting edema bilat LE SKIN: lumbar incision c/d/i without induration or erythema no drainage, Left lower back abrasion ASSESSMENT:69-year-old F with past medical history of chronic low back pain who presents status post T12 burst facture with laminectomy complciated by hardware infection, dural tear, sepsis, and acute respiratory failure PLAN: 1. PT/OT advance gait and ADLs, strengthen/stretch/maintain ROM all 4 limbs 2. ortho- T12 burst fracture with spinal stenosis s/p laminectomy complicated by hardware infection and dural tear s/p washout spinal precautions -f/u Dr. Colón ortho [phone] -c/u daily/prn dressing changes for drainage, incision appears intact and mago- wound c/d/i, will monitor Hgb for blood loss, patient clinically stable 3. ID- patient with E. coli bacteremia and hardware wound culture positive for klebsiella, E coli, and gram sensitive enterococcus- c/u Ceftriaxone and ampicillin for at least 6 weeks from 11/30 to be followed by suppressive therapy, will consult Dr. Muse for assistance 3. Cardiology chronic systolic CHF, fluid restrict, daily lasix (monitor for SON in setting of CKD2) daily weights, medicine consulted to assist in overall management - new onset Afib c/u metoprolol and lovenox -HLD- c/u statin -f/u cardiology Dr. Briggs [phone] 4. Resp- hx of COPD and CHINTAN, daytime and nocturnal 02 for goal >88%, may use own CPAP if able to bring in -Duonebs, Advair, and albuterol prn -s/p drainage of left pleural effusion - PE s/p heparin drip c/u Lovenox 100mg BID until cleared by neurosurgery to switch to oral AC 5. Renal- CKD2, monitor for SON, c/u lasix for edema, will consider inhouse renal consult -hypokalemia and hypomagnesemia, c/u to replete with K and Mg runs, patient clinically stable 6. - monitor PVRs 7. DVT ppx- 8. GI ppx- protonix 9. Pain- tylenol, oxycodone 10. Psych- haldol prn agitation, will add Olanzapine 2.5 mg qHS 11. Neur- restless leg syndrome c/u requip 11. Dispo- tbd Allergies Coded Allergies: Benzodiazepines (Verified Adverse Reaction, Intermediate, DELERIUM, 11/25/19) fentanyl (Verified Adverse Reaction, Mild, LOOPY, 11/20/19) morphine (Verified Adverse Reaction, Mild, SEDATION; profound, 11/20/19) pregabalin (Verified Adverse Reaction, Mild, FEET SWELLING, 11/25/19) Current Medications Current Medications Current Medications Medications (Trade) Dose Ordered Sig/William Route PRN Reason Start Time Stop Time Status Last Admin Dose Admin Acetaminophen (Tylenol Tab) 1,000 mg TID PO 12/17/19 21:00 01/14/20 07:42 DC 12/19/19 08:45 Albuterol/ Ipratropium (Duoneb (Ipr 0.5mg/Alb 2.5mg)) 3 ml RTID NEB 12/18/19 14:00 01/14/20 07:42 DC 12/19/19 07:13 Ampicillin Sodium 2 gm/Dextrose 100 ml @ 200 mls/hr Q4H IV 12/17/19 18:00 01/11/20 13:15 DC 12/19/19 09:45 Atorvastatin Calcium (Lipitor) 20 mg QHS PO 12/17/19 21:00 01/14/20 07:42 DC 12/18/19 20:36 Bisacodyl (Dulcolax Suppository) 10 mg DAILYPRN PRN NM CONSTIPATION 12/17/19 16:15 01/14/20 07:42 DC Ceftriaxone Sodium 2 gm/ Dextrose 50 ml @ 100 mls/hr Q12H IV 12/17/19 19:00 12/17/19 17:24 DC Ceftriaxone Sodium 2 gm/ Dextrose 50 ml @ 50 mls/hr Q12H IV 12/17/19 19:00 01/11/20 13:15 DC 12/19/19 06:24 Docusate Sodium (Colace) 100 mg BID PO 12/17/19 21:00 01/14/20 07:42 DC 12/19/19 08:45 Enoxaparin Sodium (Lovenox) 100 mg Q12H SC 12/17/19 18:00 01/11/20 13:18 DC 12/19/19 05:30 Ferrous Sulfate (Ferrous Sulfate) 300 mg DAILY PO 12/18/19 09:00 01/14/20 07:42 DC 12/19/19 08:44 Furosemide (Lasix) 60 mg DAILY PO 12/18/19 09:00 01/14/20 07:42 DC 12/19/19 08:46 Guaifenesin (Robitussin Tab) 400 mg TID PO 12/18/19 09:00 01/14/20 07:42 DC 12/19/19 08:44 Haloperidol (Haldol) 0.5 mg Q4HP PRN IM AGITATION 12/17/19 17:30 01/14/20 07:42 DC 12/19/19 11:32 Heparin Sodium (Heparin (Flush)) 200 units ASDIRECTED PRN IV SEE LABEL COMMENTS 12/18/19 03:30 01/14/20 07:42 DC Heparin Sodium (Heparin (Flush)) 200 units PICC IV 12/18/19 06:00 01/14/20 07:42 DC 12/18/19 07:44 Home Med (Med Rec Complete!) ASDIRECTED XX 12/17/19 17:15 12/17/19 17:05 DC Insulin Detemir (Levemir Insulin) 55 units BID SC 12/18/19 21:00 12/18/19 18:11 DC Lactobacillus Acidophilus (Bacid) 1 ea TID PO 12/17/19 16:00 01/14/20 07:42 DC 12/19/19 08:45 Latanoprost (Xalatan 0.005% Op Soln) 1 drop QHS OU 12/17/19 21:00 01/14/20 07:42 DC 12/18/19 20:38 Magnesium Oxide (Mag-Ox) 400 mg BID PO 12/19/19 09:00 01/14/20 07:42 DC 12/19/19 09:44 Magnesium Sulfate/ Dextrose 1 gm/IV Miscellaneous Supplies 100 ml @ 100 mls/hr Q1H IV 12/19/19 10:00 01/11/20 13:11 DC 12/19/19 12:28 Metoprolol Tartrate (Lopressor) 25 mg Q8H PO 12/17/19 14:00 01/14/20 07:42 DC 12/19/19 05:30 Nystatin (Mycostatin Powder, Nystop) 1 dose BID TOP 12/18/19 09:00 01/14/20 07:42 DC 12/19/19 08:46 Olanzapine (ZyPREXA) 2.5 mg QHS PO 12/19/19 21:00 01/14/20 07:42 DC Oxycodone HCl (Roxicodone, Oxyir) 5 mg Q4HP PRN PO PAIN 12/17/19 16:15 01/11/20 13:18 DC 12/19/19 00:51 Oxycodone HCl (Roxicodone, Oxyir) 10 mg Q4HP PRN PO SEVERE PAIN (PS 8-10) 12/17/19 16:15 01/11/20 13:18 DC 12/19/19 05:02 Pantoprazole Sodium (Protonix) 40 mg DAILY PO 12/18/19 09:00 01/14/20 07:42 DC 12/19/19 08:46 Potassium Chloride 10 meq/ IV Miscellaneous Supplies 100 ml @ 100 mls/hr Q1H IV 12/18/19 15:00 12/18/19 18:59 DC 12/18/19 21:41 Potassium Chloride (Micro-K Extencaps) 20 meq BID PO 12/17/19 21:00 01/14/20 07:42 DC 12/19/19 08:46 Ropinirole HCl (Requip) 0.25 mg TID PO 12/17/19 16:00 01/14/20 07:42 DC 12/19/19 08:46 Senna (Senokot) 1 tab QHS PO 12/17/19 21:00 01/14/20 07:42 DC Sodium Chloride (Saline Lock Flush) 10 ml ASDIRECTED PRN IV SEE LABEL COMMENTS 12/18/19 03:30 01/14/20 07:42 DC Sodium Chloride (Saline Lock Flush) 10 ml PICC IV 12/18/19 06:00 01/14/20 07:42 DC 12/18/19 07:44 FLOR KHAN MD Jan 15, 2020 15:05
[2020-01-29 14:11] LABS: HEMATOCRIT 33.5 % (36.0-47.0); MEAN CORPUSCULAR HEMOGLOBIN 30.2 pg (27.0-33.0); MEAN CORPUSCULAR HGB CONC 29.9 g/dl (32.0-36.5); MEAN CORPUSCULAR VOLUME 101.2 fl (80.0-96.0); PLATELET COUNT, AUTOMATED 318 10^3/uL (150-450); RED BLOOD COUNT 3.31 10^6/uL (4.00-5.40); WHITE BLOOD COUNT 9.6 10^3/uL (4.0-10.0)
== END 2019-12-25 14:55 | disposition home or self-care (01) | DRG 949 ==
LOC: M PM&R 14:35
PROVIDERS: ADMIT Physical Medicine & Rehabilitation; ATTEND Physical Medicine & Rehabilitation
PROC: 30233N1 Transfusion of Nonautologous Red Blood Cells into Peripheral Vein, Percutaneous Approach (ICD-10-PCS; principal; 2019-12-18)
PROC: 02HV33Z Insertion of Infusion Device into Superior Vena Cava, Percutaneous Approach (ICD-10-PCS; 2019-12-24)
DX: T84.7XXD Infection and inflammatory reaction due to other internal orthopedic prosthetic devices, implants and grafts, subsequent encounter (principal); I50.32 Chronic diastolic (congestive) heart failure; I13.0 Hypertensive heart and chronic kidney disease with heart failure and stage 1 through stage 4 chronic kidney disease, or unspecified chronic kidney disease; I25.10 Atherosclerotic heart disease of native coronary artery without angina pectoris; J44.9 Chronic obstructive pulmonary disease, unspecified; N18.2 Chronic kidney disease, stage 2 (mild); F41.9 Anxiety disorder, unspecified; F32.9 Major depressive disorder, single episode, unspecified; E78.5 Hyperlipidemia, unspecified; E66.01 Morbid (severe) obesity due to excess calories; G47.33 Obstructive sleep apnea (adult) (pediatric); Z86.718 Personal history of other venous thrombosis and embolism; Z98.1 Arthrodesis status; R26.89 Other abnormalities of gait and mobility; G25.81 Restless legs syndrome; Z79.899 Other long term (current) drug therapy; Z88.5 Allergy status to narcotic agent; Z88.8 Allergy status to other drugs, medicaments and biological substances

== ENCOUNTER → 2019-12-31 | Outpatient (REF) | payer MEDICARE, BC, OTHER ==
[~2019-12-31] MED LIST changes: +ACET-683 PO; +ACID1TAB PO; +AMLO1TAB24 PO; -AMLO5TAB6 PO; +AMPI2INJ18 IV; +CEFT1INJ65 IV; +ENOX100I3 SC; +EXCETAB33 PO; +FERR325T3 PO; +FERR5MLUD PO; +FURO20TA2 PO; +FURO40TA2 PO; +GABA-1171 PO; +HALO2CON PO; +MAGN400T2 PO; +MENT113O4 TOP; +METO25TA4 PO; +MM S100C PO; +OLAN5TAB PO; +OXYC1TAB23; +PANT40TA29 PO; -PANT40TA3 PO; +POTA20TA6 PO; +RISATAB3 PO; +TIZA4TAB4 PO
[2020-01-27 14:24] LABS: HEMATOCRIT 29.3 % (36.0-47.0); HEMOGLOBIN 8.4 g/dl (12.0-15.5); MEAN CORPUSCULAR HEMOGLOBIN 30.2 pg (27.0-33.0); MEAN CORPUSCULAR HGB CONC 28.7 g/dl (32.0-36.5); MEAN CORPUSCULAR VOLUME 105.4 fl (80.0-96.0); RED BLOOD COUNT 2.78 10^6/uL (4.00-5.40); WHITE BLOOD COUNT 12.6 10^3/uL (4.0-10.0)
[2020-01-27 14:25] LABS: PLATELET COUNT, AUTOMATED 382 10^3/uL (150-450)
[2020-02-15 09:40] LABS: ALBUMIN 2.4 GM/DL (3.2-5.2); ALT/SGPT 15 U/L (12-78); BILIRUBIN,TOTAL < 0.1 MG/DL (0.2-1.0); BLOOD UREA NITROGEN 11 MG/DL (7-18); C REACTIVE PROTEIN QUANTITATIV 1.68 MG/DL (0.00-0.30); CALCIUM LEVEL 7.9 MG/DL (8.8-10.2); CARBON DIOXIDE LEVEL 34 MEQ/L (21-32); CHLORIDE LEVEL 106 MEQ/L (98-107); CREATININE FOR GFR 0.78 MG/DL (0.55-1.30); GLOMERULAR FILTRATION RATE > 60.0 (>45); GLUCOSE, FASTING 82 MG/DL (70-100); POTASSIUM SERUM 4.7 MEQ/L (3.5-5.1); SODIUM LEVEL 143 MEQ/L (136-145); TOTAL PROTEIN 6.1 GM/DL (6.4-8.2)
== END ==
LOC: M SHH 14:51
PROVIDERS: ATTEND Internal Medicine Infectious Disease
DX: Z51.81 Encounter for therapeutic drug level monitoring (principal); Z79.899 Other long term (current) drug therapy

== ENCOUNTER 2020-01-03 15:55 | Inpatient (IN) | payer MEDICARE, BC, OTHER ==
[~2020-01-03 15:55] MED LIST changes: -EXCETAB33 PO; -FERR325T3 PO; -FURO40TA2 PO; +FUROSEMIDE 40MG/4ML VIAL (J1940) As Ordered ONE; -GABA-1171 PO; -MAGN400T2 PO; -MM S100C PO; -OLAN5TAB PO; -OXYC1TAB23; -RISATAB3 PO; -TIZA4TAB4 PO
[2020-01-03] MEDS ORDERED: AMPICILLIN 2 GM VIAL (J0290 PER 500MG) ONE (18:00)
[2020-01-03] MEDS ORDERED: ENOXAPARIN 100MG/1ML SYRINGE (J1650 PER 10MG) As Ordered ONE (23:05)
[2020-01-03] MEDS ORDERED: FUROSEMIDE 40MG/4ML VIAL (J1940) As Ordered ONE (23:05)
[2020-01-03] MEDS ORDERED: ATORVASTATIN 20 MG TAB As Ordered ONE (23:06)
[2020-01-03] MEDS ORDERED: oxyCODONE 5MG TAB As Ordered ONE (23:06)
[2020-01-04] MEDS ORDERED: cefTRIAXone SOD 2 GM VIAL (J0696 PER 250MG) As Ordered ONE ×3 (00:37→21:39)
[2020-01-04] MEDS ORDERED: FUROSEMIDE 40MG/4ML VIAL (J1940) As Ordered ONE ×4 (03:43→21:38)
[2020-01-04] MEDS ORDERED: POTASSIUM CHLORIDE 10 MEQ SR TABLET As Ordered ONE ×2 (10:01→23:35)
[2020-01-04] MEDS ORDERED: FERROUS SULFATE 325MG TAB As Ordered ONE (10:02)
[2020-01-04] MEDS ORDERED: ENOXAPARIN 40MG/0.4ML SYRINGE (J1650 PER 10MG) As Ordered ONE (10:02)
[2020-01-04] MEDS ORDERED: MAGNESIUM SULFATE 1GM/100ML D5W BAG (10MG/ML) As Ordered ONE (10:21)
[2020-01-04] MEDS ORDERED: AMPICILLIN 2 GM VIAL (J0290 PER 500MG) ONE (13:00)
[2020-01-04] MEDS ORDERED: ONDANSETRON 4MG/2ML VIAL As Ordered ONE (13:46)
[2020-01-04] MEDS ORDERED: ATORVASTATIN 20 MG TAB As Ordered ONE (21:38)
[2020-01-04] MEDS ORDERED: ENOXAPARIN 100MG/1ML SYRINGE (J1650 PER 10MG) As Ordered ONE (21:38)
[2020-01-05] MEDS ORDERED: FUROSEMIDE 40MG/4ML VIAL (J1940) As Ordered ONE ×4 (05:05→21:16)
[2020-01-05] MEDS ORDERED: ENOXAPARIN 100MG/1ML SYRINGE (J1650 PER 10MG) As Ordered ONE ×2 (07:53→21:16)
[2020-01-05] MEDS ORDERED: MAGNESIUM SULFATE 1GM/100ML D5W BAG (10MG/ML) As Ordered ONE ×2 (07:53→18:32)
[2020-01-05] MEDS ORDERED: POTASSIUM CHLORIDE 10 MEQ SR TABLET As Ordered ONE ×2 (07:54→18:12)
[2020-01-05] MEDS ORDERED: FERROUS SULFATE 325MG TAB As Ordered ONE (07:54)
[2020-01-05] MEDS ORDERED: cefTRIAXone SOD 2 GM VIAL (J0696 PER 250MG) As Ordered ONE ×2 (07:54→21:17)
[2020-01-05] MEDS ORDERED: NAFCILLIN SOD 2GM VIAL ONE (09:00)
[2020-01-05] MEDS ORDERED: AMPICILLIN 2 GM VIAL (J0290 PER 500MG) ONE (09:00)
[2020-01-05] MEDS ORDERED: oxyCODONE 5MG TAB As Ordered ONE (11:36)
[2020-01-05] MEDS ORDERED: ATORVASTATIN 20 MG TAB As Ordered ONE (21:16)
[2020-01-05] MEDS ORDERED: MAGNESIUM OXIDE 400 MG TAB (MAG-OX) As Ordered ONE (21:17)
[2020-01-06] MEDS ORDERED: POTASSIUM CHLORIDE 10 MEQ SR TABLET As Ordered ONE ×2 (00:30→08:15)
[2020-01-06] MEDS ORDERED: FUROSEMIDE 40MG/4ML VIAL (J1940) As Ordered ONE ×2 (05:17→08:14)
[2020-01-06] MEDS ORDERED: FERROUS SULFATE 325MG TAB As Ordered ONE (08:15)
[2020-01-06] MEDS ORDERED: MAGNESIUM OXIDE 400 MG TAB (MAG-OX) As Ordered ONE ×2 (08:15→21:23)
[2020-01-06] MEDS ORDERED: ENOXAPARIN 100MG/1ML SYRINGE (J1650 PER 10MG) As Ordered ONE ×2 (08:15→21:23)
[2020-01-06] MEDS ORDERED: cefTRIAXone SOD 2 GM VIAL (J0696 PER 250MG) As Ordered ONE ×2 (08:16→21:24)
[2020-01-06] MEDS ORDERED: AMPICILLIN 2 GM VIAL (J0290 PER 500MG) ONE ×2 (09:00)
[2020-01-06] MEDS ORDERED: MAGNESIUM SULFATE 1GM/100ML D5W BAG (10MG/ML) As Ordered ONE (10:57)
[2020-01-06] MEDS ORDERED: OLANZapine 5 MG TAB ONE (13:00)
[2020-01-06] MEDS ORDERED: rOPINIRole 0.25 MG TAB(REQUIP) ONE ×2 (13:00)
[2020-01-06] MEDS ORDERED: LIDOCAINE 1% MDV 20ML VIAL As Ordered ONE (15:55)
[2020-01-06] MEDS ORDERED: oxyCODONE 5MG TAB As Ordered ONE (17:23)
[2020-01-06] MEDS ORDERED: ATORVASTATIN 20 MG TAB As Ordered ONE (21:23)
[2020-01-07] MEDS ORDERED: ENOXAPARIN 100MG/1ML SYRINGE (J1650 PER 10MG) As Ordered ONE (10:08)
[2020-01-07] MEDS ORDERED: POTASSIUM CHLORIDE 10 MEQ SR TABLET As Ordered ONE (10:09)
[2020-01-07] MEDS ORDERED: MAGNESIUM OXIDE 400 MG TAB (MAG-OX) As Ordered ONE (10:09)
[2020-01-07] MEDS ORDERED: FERROUS SULFATE 325MG TAB As Ordered ONE (10:09)
[2020-01-07] MEDS ORDERED: FUROSEMIDE 40 MG TAB As Ordered ONE (10:09)
[2020-01-07] MEDS ORDERED: oxyCODONE 5MG TAB As Ordered ONE ×2 (12:09→18:23)
[2020-01-07] MEDS ORDERED: LIDOCAINE W/EPINEPHRINE 1% 20ML VIAL As Ordered ONE (15:04)
--- NOTE | 2020-02-12 16:30 | ECGEPIP ---
SINUS RHYTHM LOW QRS VOLTAGE IN PRECORDIAL LEADS BORDERLINE ECG NONSPECIFIC ST & T-WAVE ABNORMALITY SEE SCANNED DOWNTIME REPORT MTDD
[2020-02-16 15:12] LABS: BASO # 0.1 10^3/uL (0.0-0.2); BASO % 0.6 % (0.0-1.0); EOS # 0.6 10^3/uL (0.0-0.5); EOS % 4.8 % (0.0-3.0); HEMATOCRIT 31.2 % (36.0-47.0); HEMOGLOBIN 8.9 g/dl (12.0-15.5); LYMPH # 2.1 10^3/uL (1.5-5.0); LYMPH % 16.7 % (24.0-44.0); MEAN CORPUSCULAR HEMOGLOBIN 30.5 pg (27.0-33.0); MEAN CORPUSCULAR HGB CONC 28.5 g/dl (32.0-36.5); MEAN CORPUSCULAR VOLUME 106.8 fl (80.0-96.0); MONO % 8.2 % (0.0-5.0); NEUTROPHILS # 8.3 10^3/uL (1.5-8.5); PLATELET COUNT, AUTOMATED 350 10^3/uL (150-450); RED BLOOD COUNT 2.92 10^6/uL (4.00-5.40); WHITE BLOOD COUNT 12.4 10^3/uL (4.0-10.0)
[2020-02-16 15:13] LABS: INR 0.96; PARTIAL THROMBOPLASTIN TIME 35.3 SECONDS (24.2-38.5)
[2020-02-16 17:01] LABS: BASO # 0.1 10^3/uL (0.0-0.2); BASO % 0.7 % (0.0-1.0); EOS # 0.5 10^3/uL (0.0-0.5); EOS % 4.1 % (0.0-3.0); HEMATOCRIT 28.7 % (36.0-47.0); HEMOGLOBIN 8.1 g/dl (12.0-15.5); LYMPH % 16.8 % (24.0-44.0); MEAN CORPUSCULAR HGB CONC 28.2 g/dl (32.0-36.5); MEAN CORPUSCULAR VOLUME 106.3 fl (80.0-96.0); MONO # 1.1 10^3/uL (0.0-0.8); MONO % 9.4 % (0.0-5.0); NEUTROPHILS # 7.9 10^3/uL (1.5-8.5); NEUTROPHILS % 66.5 % (36.0-66.0); PLATELET COUNT, AUTOMATED 350 10^3/uL (150-450); WHITE BLOOD COUNT 11.8 10^3/uL (4.0-10.0)
[2020-02-16 17:02] LABS: INR 0.96; PARTIAL THROMBOPLASTIN TIME 36.4 SECONDS (24.2-38.5)
--- NOTE | 2020-02-17 08:15 | HPE ---
DATE OF ADMISSION: 01/03/2020 CHIEF COMPLAINT: Shortness of breath. HISTORY OF PRESENTING ILLNESS: This is a 69-year-old female with morbid obesity, COPD, 2 liters oxygen dependent, obstructive sleep apnea, degenerative disk disease with recent thoracolumbar fusion in [place] a month ago, presents to the emergency room with a two day history of worsening shortness of breath, without fever accompanied, with some nausea and cough productive of white sputum. The patient said that she first noticed this when she got up and this was accompanied with some nausea yesterday and today, and despite taking antiemetics, she has had no significant improvement. She has noticed increasing lower extremity edema and a 5 pound weight gain for the past few days, complaining of some dizziness and lightheadedness with chest pain or pressure or tightness. She otherwise denies any fever, dysuria, urgency, frequency, vomiting, or abdominal pain. She also complains of 2-3 episodes of watery stools. Hospitalist was called to admit for congestive heart failure in the ER. She was 94% on room air. Chest x-ray shows pulmonary vascular congestion, edema versus pneumonitis, with bibasilar bilateral effusions and atelectasis. White count was elevated at 11. Hemoglobin and hematocrit were 8 and 28. Hospitalist was asked to admit for congestive heart failure. EKG was sinus rhythm with ventricular rate of 82. The patient admits to dietary noncompliance with salt restrictions, fluid restrictions. No prior history of CAD and congestive heart failure. The patient was chronically on Lovenox SQ every 12 hours and ampicillin. PAST MEDICAL HISTORY: Chronic obstructive pulmonary disease. Emphysema. Obstructive sleep apnea. PAST SURGICAL HISTORY: Cholecystectomy. Thoracolumbar fusion one month ago in [place]. ALLERGIES: No known drug allergies. HOME MEDICATIONS: Ampicillin 2 grams IV q.4 h. Lovenox 100 mg subcutaneous q.12 h. Lipitor 20 mg nightly at bedtime. Lopressor 25 mg q.8 h., hold for systolic pressure less than 110 or a heart rate less than 60. Ceftriaxone 2 grams IV q.12 h. Ferrous sulfate 325 p.o. b.i.d. Xalatan 0.005% OU nightly at bedtime. Requip 0.25 mg t.i.d. Lasix 60 mg daily. Magox 400 mg b.i.d. Potassium 40 mEq b.i.d. Oxycodone 10 mg q.4 h. as needed for pain greater than 7/10. Zyprexa 2.5 mg b.i.d. SOCIAL HISTORY: Smoked two packs a day for twenty years and quit in 2009. No alcohol use. Lives with her mother and father. No drug use. FAMILY HISTORY: CAD in mother and father. PHYSICAL EXAMINATION: VITAL SIGNS: Blood pressure 125/60, respiratory rate 18, afebrile, pulse 77 sinus rhythm, 97% on 2 liters nasal cannula. GENERAL: The patient is awake, alert, oriented to person, place, and time, answering questions appropriately. No conversational dyspnea. NECK: The patient has positive JVD, no thyromegaly. HEENT: Moist mucous membranes. LUNGS: Diminished, bibasilar rales. HEART: S1, S2, sinus rhythm. ABDOMEN: Soft, nontender, nondistended. Positive bowel sounds x4 quadrants. No rebound or guarding. EXTREMITIES: There is 3+ pitting edema to the sacrum. BACK: Stitches from the mid thoracic spine all the way to the lumbosacral spine at L5-S1. There is some serosanguinous drainage, no erythema, tenderness, or purulent discharge. DATA: Chest x-ray shows low lung volumes, mild central pulmonary vascular congestion versus crowding due to low lung volumes, bibasilar atelectasis; edema or pneumonitis could have the same appearance. Small bilateral pleural effusions. PT 13, PTT 35.3, white count 11, hemoglobin 8, hematocrit 28, platelet count 350. EKG shows sinus rhythm, ventricular rate of 82. Sodium 142, potassium 5, chloride 105, bicarb 35, BUN 12, creatinine 0.85, glucose 91, total proteins 6, ALT 15, AST 15, total bilirubins 0.2, direct bilirubin less than 0.1, CK 45, MB fraction 1.8, troponin less than 0.02, TSH 1.61, lactic acid 1. ASSESSMENT: This is a 69-year-old female, morbid obesity, lumbar disc fusion a month ago, still on ampicillin, Lovenox, dyslipidemia, iron deficiency anemia, glaucoma, restless leg syndrome, chronic venous insufficiency, presents with a two day history of worsening shortness of breath, cough, and lower extremity edema, with a five pound weight gain. IMPRESSION: New onset congestive heart failure, unknown ejection fraction. Obtain 2-D Echocardiogram. Strict diet, , daily weights, and 2 liters fluid restriction. Lasix 40 IV q.6 h., hold for systolic pressure less than 100 or creatinine greater than 1.5. COPD with 2 liters oxygen dependency. The patient most likely as cor pulmonale. Obtain 2-D ECHO and check for pulmonary hypertension. Nebulizer treatment as needed. Supplemental oxygen to keep saturations at 88% to 92%. Thoracolumbar fusion surgery, still on ampicillin, ceftriaxone, Lovenox for DVT prophylaxis, which we will continue. Wound care consult. Daily dressings. Two sets of blood cultures and wound culture and sensitivity. Dyslipidemia. Continue on Lipitor 20 mg nightly at bedtime. Iron deficiency. Check iron studies, stool for blood. Resume ferrous sulfate. Transfuse 2 units RBC if hemoglobin is less than 8. Restless leg. Continue on the Requip. Chronic venous insufficiency. Currently on IV Lasix. Obesity complicated care with probable CHINTAN. Diarrhea. Check C. difficile panel and check C. difficile, PCR, and GI panel. Code status. Full code. MTDD
--- NOTE | 2020-02-17 09:10 | IPN ---
DATE: 01/04/2020 SUBJECTIVE: Patient says that her shortness of breath has much improved overnight. She diuresed over 3 liters out per RN. No cough. No fever or chills overnight. Doppler of the lower extremities was negative for deep vein thrombosis (DVT). OBJECTIVE: VITAL SIGNS: Blood pressure 101/59, temperature 97.6, respiratory rate 19, pulse 77, sinus rhythm, 96% on room air. Current weight is 74.3 kg. GENERAL: Awake, alert, and oriented x3. Answering questions appropriately. NECK: No JVD. No thyromegaly or cervical lymphadenopathy. HEENT: Moist mucous membranes. LUNGS: Diminished. Fine crackles at bilateral bases. HEART: S1, S2. Sinus rhythm. No murmurs, rubs, or gallops. ABDOMEN: Obese, soft, nontender, and nondistended. Positive bowel sounds. EXTREMITIES: 2+ pitting edema to the sacrum. Patient has erythematous lesions bilateral upper extremities along the medial hand. LABORATORY DATA: Troponin less than 0.02. White count 10, hemoglobin 9, hematocrit 39, platelet count 256,000. Metabolic panel is still pending. IMAGING STUDIES: Doppler negative. ASSESSMENT AND PLAN: This is a 69-year-old obese female with history of chronic obstructive pulmonary disease (COPD) and chronic hypoxic respiratory failure on 3 liters home oxygen, obesity, obstructive sleep apnea, probable Cor pulmonale with chronic venous insufficiency, restless legs, hypertension, and hyperlipidemia who had a thoracolumbar fusion surgery in [place] still on nafcillin, ceftriaxone and Lovenox subcutaneous every 12 hours. Presented to the emergency room with a two day history of worsening shortness of breath found to have bilateral infiltrates and effusions on chest x-ray and admitted for congestive heart failure, new onset. IMPRESSION: Congestive heart failure, new onset. Most likely secondary to Cor pulmonale from chronic obstructive pulmonary disease (COPD) end-stage. Await 2D echo report to check systolic or diastolic dysfunction. She was kept on I and O (intake and output), daily weights, Lasix 40 IV every six hours with holding parameters for systolic pressure less than 110 or creatinine greater than 1.5. Coags markers have been negative. She remains sinus rhythm on telemetry. Thoracolumbar fusion surgery. Still on IV nafcillin, IV ceftriaxone, and Lovenox subcutaneously every 12 hours done in [place]. Obtain records from [place] on Monday. Await wound consult and sensitivities. Chronic obstructive pulmonary disease (COPD) with home oxygen dependency usually at 3 liters oxygen at all times. Chronic hypoxic respiratory failure appears to be compensated. Continue on nebulizers. Obesity and probable obstructive sleep apnea. Outpatient follow-up. Currently on home oxygen continuously. Chronic venous insufficiency. Dopplers lower extremities were negative for deep vein thrombosis (DVT) currently on therapeutic dose of Lovenox 1 mg/kg subcutaneously every 12 hours started in [place] after the thoracolumbar fusion. Restless legs. Continue on Ropinirole. Hypertension, stable. Holding parameters have been made on the Lasix. Dyslipidemia, stable. Check lipid profile. [facility]
--- NOTE | 2020-02-17 09:13 | IPN ---
DATE: 01/05/2020 Patient is seen and examined at the bedside. Chart has been reviewed. Yesterday, patient pulled her peripherally inserted central catheter (PICC) line out and was confused. CT of the head was negative. ABG was compensated with CO2 62, pH of 7.4. According to the yesterday afternoon, patient waxes and wanes with acute delirium usually when she is in the hospital. She is now back to her baseline mentation without any intervention. Peripheral IV line had been restarted in order to provide ceftriaxone and ampicillin. Patient currently says that her shortness of breath has resolved. No cough. No fever or chills overnight. No nausea or vomiting. PHYSICAL EXAMINATION: Blood pressure 148/80, temperature 96.3, pulse 97, respiratory rate 20, 96% on three liters nasal cannula. Current weight is 112.2 kg, admission weight of 113.6 kg. Output overnight since midnight was 1500, input was not documented. Generally: Patient is awake, alert, oriented to herself, place, and time, answering questions appropriately with no respiratory distress, no use of respiratory accessory muscles, no conversational dyspnea. Pupils are round and reactive, extraocular muscles are intact. Moist mucous membranes. Jugular venous distention (JVD) is decreased. No cervical lymphadenopathy or thyromegaly. Lungs: Diminished with fine crackles at bilateral bases. Heart: S1, S2, sinus rhythm. No murmurs, rubs, or gallops. Abdomen: Obese, soft, nontender, nondistended. Positive bowel sounds times four quadrants. Extremities: 1+ pitting edema to the sacrum. Skin: Patient has some serous drainage from the thoracolumbar bill in the back. She has no purulence, no fluctuance, slightly tender, no significant erythema. LABORATORY DATA: White count 9, hemoglobin 8.9, hematocrit 29, platelet count 298. Gastrointestinal (GI) panel is negative. pH of 7.4, CO2 of 62, oxygen saturation of 57, bicarbonate of 40, sodium 141, potassium 3.6, chloride 97, BUN 8, creatinine 0.65, glucose of 90. ASSESSMENT AND PLAN: This is a 69-year-old female with recent thoracolumbar fusion surgery from [place] 1 month ago on IV ampicillin and ceftriaxone, end- stage chronic obstructive pulmonary disease (COPD) on three liters nasal cannula with chronic hypoxic and chronic hypercarbic respiratory failure, obesity, probable obstructive sleep apnea and cor pulmonale, dyslipidemia, restless legs, hypertension, and depression, admitted to the hospital due to worsening shortness of breath, lower extremity edema, and weight gain, found to have new onset congestive heart failure which is diastolic dysfunction. CURRENT ISSUES: 1. Acute diastolic congestive heart failure. Patient had an echocardiogram, it showed diastolic dysfunction. She was kept on strict intake and output, daily weights, and two liter fluid restriction, kept on Lasix every 6 hours with serial metabolic panel for potassium and magnesium monitoring. Potassium is given 20 mEq three times a day, magnesium 1 gram IV daily. Since her magnesium is low today at 1.2, the magnesium will be done at 4 p.m. and supplemented as needed to keep magnesium greater than 2. She is kept on telemetry for any arrhythmia monitoring. 2. Acute delirium with acute metabolic toxic encephalopathy. Patient has pulled her peripherally inserted central catheter (PICC) line which was being used for her IV ampicillin and gentamicin for her back. She is currently ordered a PICC line on Monday. She has chronic hypoxic and chronic hypercarbia according to her arterial blood gas (ABG). Will continue to monitor for mental status change, frequent orientation, and avoid sedatives. 3. Thoracolumbar fusion surgery on chronic antibiotics, IV ampicillin and ceftriaxone. White count is normal. She remains afebrile. Continue with daily dressing changes. Peripherally inserted central catheter (PICC) line in the morning since patient has lost IV access. 4. Poor IV access. Patient has pulled her peripherally inserted central catheter (PICC) line and will need one placed on Monday in order to continue IV ampicillin and ceftriaxone for her thoracolumbar fusion surgery and cellulitis. PICC line in the morning. 5. Hypertension. Controlled on current medications with holding parameters. 6. Dyslipidemia. On chronic Lipitor. 7. Iron deficiency anemia. No acute indication for red blood cells (RBC) transfusion. Continued on ferrous sulfate 325 daily. 8. Restless legs. On chronic Requip 0.25 three times a day. 9. Hypomagnesemia. Repleted. Will check magnesium level at 4 p.m. DISCHARGE PLAN: Is for Monday after peripherally inserted central catheter (PICC) line is placed. [facility]
--- NOTE | 2020-02-17 09:46 | REP ---
PICC LINE INSERTION WITH SITE-RITE: This procedure was performed by JAKE Lawson under the direct supervision of Dr. Morales. The risks and benefits of the procedure were explained to the patient and informed consent was obtained both verbally and written. Prior to the start of the procedure, a formal time-out was completed in the exam room. PROCEDURE: Both of the right brachial and basilic veins were localized using ultrasound guidance. The skin was prepped and draped in a sterile fashion. 1% lidocaine was used as a local anesthetic. Using ultrasound guidance, multiple attempts to gain access to both the brachial and basilic vein were attempted. All attempts failed with the vein infiltrating. After the third attempt, it was decided the exam should be aborted and will be tried again the following day. The patient tolerated the procedure well and there were no immediate complications. ADRELL
--- NOTE | 2020-02-17 10:00 | DSES ---
DATE OF ADMISSION: 01/03/2020 DATE OF DISCHARGE: PRIMARY DISCHARGE DIAGNOSES: New onset congestive heart failure and acute diastolic dysfunction. Postoperative wound infection, status post thoracolumbar fusion surgery in [place] on chronic antibiotics. Iron deficiency anemia. Acute encephalopathy. Poor intravenous (IV) access requiring a peripherally inserted central catheter (PICC) line to be placed. Anxiety. Chronic hypoxic and hypercarbic respiratory failure. End-stage chronic obstructive pulmonary disease (COPD) on 3 liters home oxygen. Mild tricuspid regurgitation. Acute delirium. Chronic venous insufficiency. Obesity. Hypertension. Hypercholesterolemia. Probable obstructive sleep apnea. Restless leg syndrome. Hypokalemia. Hypomagnesemia. Pulmonary hypertension. DISCHARGE MEDICATIONS: Ampicillin 2 grams IV every four hours. Lovenox 100 mg subcutaneously every 12 hours. Lipitor 20 mg at bedtime Ceftriaxone 2 grams IV every 12 hours. Ferrous sulfate 325 daily. Xalatan 0.005% both eyes at bedtime. Requip 0.25 mg three times a day. Oxycodone/hydrochlorothiazide (HCL) 10 mg every six hours as needed for pain greater than 7/10. Zyprexa 5 mg two times a day. Lasix 40 mg daily. Potassium chloride 40 mEq daily. Magnesium oxide 400 mg two times a day. PROCEDURE(S) DURING THIS ADMISSION: Peripherally inserted central catheter (PICC) line placement 01/06/2020. HOSPITAL COURSE: This is a 69-year-old female with history of obesity, obstructive sleep apnea, chronic obstructive pulmonary disease (COPD) with chronic hypoxic and hypercarbic respiratory failure home-oxygen dependent 3 liters; who had a recent thoracolumbar fusion surgery in [place] two weeks ago on chronic IV nafcillin and ceftriaxone due to postop wound infection on deep vein thrombosis (DVT) prophylaxis with questionable history of pulmonary embolus (PE) or DVT with Therapeutic dose of Lovenox 100 mg subcutaneously every 12 hours; hypercholesterolemia; iron deficiency anemia, and restless leg syndrome who presented to the emergency room with two day history of worsening shortness of breath at rest and with exertion along with a 5 pound weight gain and worsening shortness of breath. Chest x-ray showed bilateral infiltrates and BNP was elevated. She had no cough, fever, or chills. Admitted for new onset congestive heart failure. EKG showed sinus rhythm with no ST-T wave changes. Troponins were negative. She was kept on Lasix 40 IV every 6 hours with holding parameters for systolic pressure less than 120 with resultant diuresis. Echocardiogram showed ejection fraction (EF) of 65% to 70%, grade 1 diastolic dysfunction with mild tricuspid regurge. She developed confusion and pulled her PICC line out on 01/05/2020, with poor IV access. Peripheral line was placed to continue her IV ampicillin and ceftriaxone. Patient was ordered a PICC line on 01/06/2020. Her mentation improved. Zyprexa was increased to 5 mg two times a day. She was supplemented for low potassium and low magnesium with potassium and magnesium sulfate. Patient passed a home safety evaluation. Venous Doppler of the lower extremities was negative for DVT. CT of the head was negative for acute intracranial pathology. Arterial blood gas showed chronic hypercapnea with pH of 7.4, CO2 level of 62.4. Per the patients during the previous hospitalization in [place], the patient did have episodes of acute delirium on and off. She is back to baseline mentation this morning and stable for hospital discharge after PICC line. DISCHARGE PHYSICAL EXAMINATION: VITAL SIGNS: Blood pressure 148/80, temperature 96.3, pulse 92, respiratory rate 20, 96% on 3 liters nasal cannula, which is a baseline. GENERAL: Awake, alert, and oriented to person, place and time. Answering questions appropriately. No conversational dyspnea. No use of respiratory or accessory muscles. NECK: No JVD or thyromegaly. HEENT: Moist mucous membranes. LUNGS: Diminished, but clear to auscultation. No wheezing, rales, or rhonchi. HEART: S1, S2, sinus rhythm. No murmurs, rubs, or gallops. ABDOMEN: Obese, soft, nontender, and nondistended with positive bowel sounds. EXTREMITIES: Trace lower extremity edema. SKIN: Thoracolumbar spine has bill with some serous drainage. There was no erythema or purulence with some slight tenderness. LABORATORY DATA ON HOSPITAL DISCHARGE: Still pending. January 04, magnesium was 1.6. Arterial blood gases on January 03 with pH of 7.3, pCO2 of 62, O2 of 57, total CO2 of 43, bicarb 41. On 01/05/2020, white count 9, hemoglobin 8.9, hematocrit 29, platelet count 298,000. Sodium 141, potassium 3.6, chloride 97, bicarb 40, BUN 8, creatinine 0.65, glucose 90, magnesium of 1.5. BNP of 1216. IMAGING STUDIES: Chest x-ray on 01/03/2020, low lung volume. Mild central pulmonary vascular congestion versus crowding due to low lung volumes, bibasilar atelectasis. Edema or pneumonitis could have the same appearance. Small bilateral pleural effusion. EKG 01/03/2020, sinus rhythm with ventricular rate of 82, low QRS voltage in precordial leads, borderline EKG. AK interval 140, QRS of 89, QT 390, QTc 428. Ultrasound of bilateral lower extremities with no evidence of DVT in bilateral lower extremities. Chest x-ray on 01/04/2020, no interval change. CT head 01/04/2020, no acute intracranial pathology. Chest x-ray 01/05/2020, stable bibasilar subsegmental atelectasis and prior cholecystectomy. Echocardiogram of fair quality due to body habitus sinus rhythm. Normal left ventricular size and systolic function. Left ventricular EF 65% to 70%. Grade 1 diastolic dysfunction. Mild tricuspid regurgitation. Estimated pulmonary artery pressure 60 to 65 mmHg. Pulmonary pressure (PA) of 60 to 65 mmHg. No additional valvular abnormalities. Likely elevated central venous pressure (CVP). DISCHARGE INSTRUCTIONS: Primary care physician to refer to cardiology for a stress test to evaluate new onset of congestive heart failure, most likely related to Cor pulmonale secondary to elevated PA pressures with pulmonary hypertension secondary to end- stage COPD. Follow-up with orthopedic surgery spine in [place] regarding the postop wound infection and thoracolumbar fusion surgery still on IV antibiotics. Continue with previous dressing changes, recommendations, as well as antibiotics. TIME SPENT ON HOSPITAL DISCHARGE: 30 minutes. MTDD
[2020-02-21 14:24] LABS: HEMATOCRIT 34.2 % (36.0-47.0); HEMOGLOBIN 9.7 g/dl (12.0-15.5)
[2020-02-21 14:27] LABS: HEMATOCRIT 29.4 % (36.0-47.0); HEMOGLOBIN 8.6 g/dl (12.0-15.5); MEAN CORPUSCULAR HEMOGLOBIN 30.7 pg (27.0-33.0); MEAN CORPUSCULAR HGB CONC 29.3 g/dl (32.0-36.5); PLATELET COUNT, AUTOMATED 299 10^3/uL (150-450); WHITE BLOOD COUNT 10.4 10^3/uL (4.0-10.0)
[2020-02-21 18:22] LABS: BASO # 0.1 10^3/uL (0.0-0.2); BASO % 0.6 % (0.0-1.0); EOS # 0.4 10^3/uL (0.0-0.5); EOS % 4.3 % (0.0-3.0); HEMOGLOBIN 8.9 g/dl (12.0-15.5); LYMPH # 1.3 10^3/uL (1.5-5.0); LYMPH % 14.3 % (24.0-44.0); MEAN CORPUSCULAR HEMOGLOBIN 30.4 pg (27.0-33.0); MEAN CORPUSCULAR HGB CONC 30.7 g/dl (32.0-36.5); MONO # 0.9 10^3/uL (0.0-0.8); MONO % 9.9 % (0.0-5.0); NEUTROPHILS # 6.3 10^3/uL (1.5-8.5); NEUTROPHILS % 69.1 % (36.0-66.0); PLATELET COUNT, AUTOMATED 298 10^3/uL (150-450); RED BLOOD COUNT 2.93 10^6/uL (4.00-5.40); WHITE BLOOD COUNT 9.1 10^3/uL (4.0-10.0)
[2020-02-26 09:31] LABS: HEMATOCRIT 33.1 % (36.0-47.0); HEMOGLOBIN 10.3 g/dl (12.0-15.5); MEAN CORPUSCULAR HEMOGLOBIN 30.4 pg (27.0-33.0); MEAN CORPUSCULAR HGB CONC 31.1 g/dl (32.0-36.5); MEAN CORPUSCULAR VOLUME 97.6 fl (80.0-96.0); PLATELET COUNT, AUTOMATED 330 10^3/uL (150-450); RED BLOOD COUNT 3.39 10^6/uL (4.00-5.40); WHITE BLOOD COUNT 11.4 10^3/uL (4.0-10.0)
[2020-03-23 12:14] LABS: ALBUMIN 2.5 GM/DL (3.2-5.2); ALT/SGPT 15 U/L (12-78); BILIRUBIN,DIRECT < 0.1 MG/DL (0.0-0.2); BILIRUBIN,TOTAL 0.2 MG/DL (0.2-1.0); BLOOD UREA NITROGEN 12 MG/DL (7-18); CALCIUM LEVEL 8.1 MG/DL (8.8-10.2); CARBON DIOXIDE LEVEL 35 MEQ/L (21-32); CHLORIDE LEVEL 105 MEQ/L (98-107); CK-MB VALUE MASS 1.8 NG/ML (<3.6); CPK CREATINE PHOSPHOKINASE 45 U/L (26-192); CREATININE FOR GFR 0.85 MG/DL (0.55-1.30); GLOMERULAR FILTRATION RATE > 60.0 (>45); GLUCOSE, FASTING 91 MG/DL (70-100); MAGNESIUM LEVEL 1.9 MG/DL (1.8-2.4); NT-PRO BNP 5109 PG/ML (<125); POTASSIUM SERUM 5.1 MEQ/L (3.5-5.1); SODIUM LEVEL 142 MEQ/L (136-145); TROPONIN I < 0.02 NG/ML (< 0.10)
[2020-03-23 12:14] LABS: ALBUMIN 2.7 GM/DL (3.2-5.2); ALT/SGPT 16 U/L (12-78); BILIRUBIN,DIRECT < 0.1 MG/DL (0.0-0.2); BILIRUBIN,TOTAL 0.1 MG/DL (0.2-1.0); BLOOD UREA NITROGEN 12 MG/DL (7-18); CALCIUM LEVEL 8.6 MG/DL (8.8-10.2); CARBON DIOXIDE LEVEL 35 MEQ/L (21-32); CHLORIDE LEVEL 104 MEQ/L (98-107); CK-MB VALUE MASS 1.9 NG/ML (<3.6); CPK CREATINE PHOSPHOKINASE 46 U/L (26-192); CREATININE FOR GFR 0.91 MG/DL (0.55-1.30); GLOMERULAR FILTRATION RATE > 60.0 (>45); GLUCOSE, FASTING 84 MG/DL (70-100); MAGNESIUM LEVEL 1.9 MG/DL (1.8-2.4); MB/CK RELATIVE INDEX 4.13 (< OR =4); NT-PRO BNP 5233 PG/ML (<125); SODIUM LEVEL 141 MEQ/L (136-145); TOTAL PROTEIN 6.6 GM/DL (6.4-8.2); TROPONIN I < 0.02 NG/ML (< 0.10)
[2020-03-30 19:59] LABS: BLOOD UREA NITROGEN 10 MG/DL (7-18); CALCIUM LEVEL 8.5 MG/DL (8.8-10.2); CARBON DIOXIDE LEVEL 38 MEQ/L (21-32); CHLORIDE LEVEL 101 MEQ/L (98-107); CK-MB VALUE MASS 1.1 NG/ML (<3.6); CPK CREATINE PHOSPHOKINASE 31 U/L (26-192); CREATININE FOR GFR 0.73 MG/DL (0.55-1.30); GLOMERULAR FILTRATION RATE > 60.0 (>45); GLUCOSE, FASTING 74 MG/DL (70-100); MAGNESIUM LEVEL 1.6 MG/DL (1.8-2.4); MB/CK RELATIVE INDEX 3.55 (< OR =4); POTASSIUM SERUM 4.5 MEQ/L (3.5-5.1); SODIUM LEVEL 142 MEQ/L (136-145); TROPONIN I < 0.02 NG/ML (< 0.10)
[2020-03-30 20:09] LABS: ABG MODE OF VENT R/A; ABG pH (ARTERIAL) 7.438 UNITS (7.350-7.450)
[2020-03-30 20:10] LABS: ABG HCO3 41.2 MEQ/L (22.0-26.0); ABG O2 SATURATION 91.9 % (95.0-99.0); ABG PARTIAL PRESSURE CO2 62.4 mmHg (35.0-45.0); ABG PARTIAL PRESSURE O2 57.4 mmHg (75.0-100.0); ABG STANDARD HCO3 38.6 MEQ/L (22.0-26.0); ABG TOTAL CO2 43.2 MEQ/L (23.0-31.0)
[2020-03-30 20:16] LABS: CK-MB VALUE MASS 1.4 NG/ML (<3.6); CPK CREATINE PHOSPHOKINASE 50 U/L (26-192); TROPONIN I < 0.02 NG/ML (< 0.10)
[2020-03-30 22:50] LABS: BLOOD UREA NITROGEN 8 MG/DL (7-18); CALCIUM LEVEL 8.5 MG/DL (8.8-10.2); CARBON DIOXIDE LEVEL 40 MEQ/L (21-32); CHLORIDE LEVEL 97 MEQ/L (98-107); CREATININE FOR GFR 0.65 MG/DL (0.55-1.30); GLOMERULAR FILTRATION RATE > 60.0 (>45); GLUCOSE, FASTING 90 MG/DL (70-100); MAGNESIUM LEVEL 1.5 MG/DL (1.8-2.4); NT-PRO BNP 1216 PG/ML (<125); POTASSIUM SERUM 3.6 MEQ/L (3.5-5.1); SODIUM LEVEL 141 MEQ/L (136-145)
[2020-03-31 02:52] LABS: BLOOD UREA NITROGEN 10 MG/DL (7-18); CALCIUM LEVEL 8.3 MG/DL (8.8-10.2); CARBON DIOXIDE LEVEL 40 MEQ/L (21-32); CHLORIDE LEVEL 98 MEQ/L (98-107); CREATININE FOR GFR 0.88 MG/DL (0.55-1.30); GLOMERULAR FILTRATION RATE > 60.0 (>45); GLUCOSE, FASTING 109 MG/DL (70-100); POTASSIUM SERUM 3.8 MEQ/L (3.5-5.1); SODIUM LEVEL 140 MEQ/L (136-145)
[2020-03-31 04:12] LABS: BLOOD UREA NITROGEN 6 MG/DL (7-18); CARBON DIOXIDE LEVEL 40 MEQ/L (21-32); CHLORIDE LEVEL 95 MEQ/L (98-107); CREATININE FOR GFR 0.73 MG/DL (0.55-1.30); GLOMERULAR FILTRATION RATE > 60.0 (>45); GLUCOSE, FASTING 104 MG/DL (70-100); MAGNESIUM LEVEL 1.9 MG/DL (1.8-2.4); POTASSIUM SERUM 3.5 MEQ/L (3.5-5.1); SODIUM LEVEL 140 MEQ/L (136-145)
--- NOTE | 2020-04-03 17:03 | ROOPDOC ---
[facility] Report Of Operation Report of Operation DATE OF PROCEDURE: 04/03/20 PREPROCEDURE DIAGNOSES: Need for IV access POSTPROCEDURE DIAGNOSES: Same PROCEDURE: 1. Ultrasound-guided access right basilic vein 2. Placement of 40 cm dual-lumen PICC line right basilic vein SURGEON: Salud Diaz MD ANESTHESIA: Local anesthesia 3 mL lidocaine with epinephrine INDICATION FOR PROCEDURE: This is a very pleasant 69-year-old patient with very poor IV access for requires IV access prior to discharge, and had unsuccessful attempt to PICC line placement yesterday by another provider. I've been consulted for PICC line placement. Risks benefits and alternatives were explained to the patient and she is agreeable to proceed. Informed consent was obtained. INTERPRETATION: The PICC line is in good position with no kinks in the catheter and the tip freely mobile and the SVC right atrial junction. No pneumothorax is present. Okay to use the PICC line. REPORT OF OPERATION: The patient was brought to the angiographic suite in stable condition in her right upper extremity was prepped and draped in a sterile fashion after tourniquet was placed. Local anesthesia was a operations management trainee to the skin and subcutaneous tissue over the basilic vein and a microneedle was used to access the vein under ultrasound guidance. A wire was passed through this access needle was removed. A micro-sheath was placed and through this the PICC line and wire was advanced into the central system. PICC line was cut the appropriate length. We then exchanged sheath for peel-away sheath over the wire and the inner cannula and wire were removed and the PICC line was advanced through the sheath into the central system under fluoroscopic guidance. We then removed the peel-away sheath. Both ports farooq back and flushed easily on the PICC line. We then secured to the skin and sterile dressings were applied. The patient tolerated the procedure well. She was taken to recovery in stable condition. ESTIMATED BLOOD LOSS: Approximately 2 mL. COMPLICATIONS: None. PLAN: Okay to use the PICC line. We appreciate the opportunity to participate in the care of this patient. SALUD DIAZ MD Apr 03, 2020 17:03
== END 2020-01-07 19:00 | disposition home or self-care (01) | DRG 291 ==
LOC: M ED 15:55 → M PCU 16:48
PROVIDERS: ADMIT General Practice; ATTEND General Practice
PROC: 02HV33Z Insertion of Infusion Device into Superior Vena Cava, Percutaneous Approach (ICD-10-PCS; principal; 2020-01-03)
DX: I11.0 Hypertensive heart disease with heart failure (principal); I50.31 Acute diastolic (congestive) heart failure; G93.40 Encephalopathy, unspecified; J96.11 Chronic respiratory failure with hypoxia; J96.12 Chronic respiratory failure with hypercapnia; D50.9 Iron deficiency anemia, unspecified; J43.9 Emphysema, unspecified; I36.0 Nonrheumatic tricuspid (valve) stenosis; E66.01 Morbid (severe) obesity due to excess calories; E78.00 Pure hypercholesterolemia, unspecified; G47.33 Obstructive sleep apnea (adult) (pediatric); G25.81 Restless legs syndrome; E87.6 Hypokalemia; E83.42 Hypomagnesemia; Z79.899 Other long term (current) drug therapy; F41.9 Anxiety disorder, unspecified; Z99.81 Dependence on supplemental oxygen; I27.81 Cor pulmonale (chronic); I27.20 Pulmonary hypertension, unspecified; Z87.891 Personal history of nicotine dependence; H40.9 Unspecified glaucoma; E78.5 Hyperlipidemia, unspecified; R19.7 Diarrhea, unspecified

== ENCOUNTER → 2020-01-14 | Outpatient (REF) | payer MEDICARE, BC, OTHER ==
[~2020-01-14] MED LIST changes: +EXCETAB33 PO; +FERR325T3 PO; +FURO40TA2 PO; -FUROSEMIDE 40MG/4ML VIAL (J1940) As Ordered ONE; +GABA-1171 PO; +MAGN400T2 PO; +MM S100C PO; +OLAN5TAB PO; +OXYC1TAB23; +RISATAB3 PO; +TIZA4TAB4 PO
[2020-03-02 21:58] LABS: BASO # 0.1 10^3/uL (0.0-0.2); BASO % 0.5 % (0.0-1.0); EOS # 0.3 10^3/uL (0.0-0.5); HEMATOCRIT 30.4 % (36.0-47.0); LYMPH # 0.9 10^3/uL (1.5-5.0); LYMPH % 9.3 % (24.0-44.0); MEAN CORPUSCULAR HEMOGLOBIN 30.9 pg (27.0-33.0); MEAN CORPUSCULAR HGB CONC 29.6 g/dl (32.0-36.5); MEAN CORPUSCULAR VOLUME 104.5 fl (80.0-96.0); MONO # 0.4 10^3/uL (0.0-0.8); MONO % 4.7 % (0.0-5.0); NEUTROPHILS # 7.5 10^3/uL (1.5-8.5); NEUTROPHILS % 80.3 % (36.0-66.0); PLATELET COUNT, AUTOMATED 271 10^3/uL (150-450); RED BLOOD COUNT 2.91 10^6/uL (4.00-5.40); WHITE BLOOD COUNT 9.4 10^3/uL (4.0-10.0)
[2020-03-02 22:12] LABS: ERYTHROCYTE SEDIMENTATION RATE 60 mm/hr (0-30)
[2020-03-09 03:47] LABS: ALBUMIN 2.8 GM/DL (3.2-5.2); ALT/SGPT 15 U/L (12-78); BILIRUBIN,TOTAL 0.1 MG/DL (0.2-1.0); BLOOD UREA NITROGEN 11 MG/DL (7-18); C REACTIVE PROTEIN QUANTITATIV 1.89 MG/DL (0.00-0.30); CALCIUM LEVEL 8.8 MG/DL (8.8-10.2); CARBON DIOXIDE LEVEL 35 MEQ/L (21-32); CHLORIDE LEVEL 101 MEQ/L (98-107); CREATININE FOR GFR 0.65 MG/DL (0.55-1.30); GLOMERULAR FILTRATION RATE > 60.0 (>45); GLUCOSE, FASTING 115 MG/DL (70-100); POTASSIUM SERUM 4.2 MEQ/L (3.5-5.1); SODIUM LEVEL 140 MEQ/L (136-145); TOTAL PROTEIN 6.4 GM/DL (6.4-8.2)
== END ==
LOC: M LAB REF 15:27
PROVIDERS: ATTEND Internal Medicine Infectious Disease
DX: A49.8 Other bacterial infections of unspecified site (principal); B95.2 Enterococcus as the cause of diseases classified elsewhere

== ENCOUNTER 2020-02-18 15:50 | Emergency (ER) | payer MEDICARE, BC, OTHER ==
[~2020-02-18] VITALS: Ht 157.5 cm; Wt 111.4 kg
[~2020-02-18 15:50] MED LIST changes: -EXCETAB33 PO; -FERR325T3 PO; -FURO40TA2 PO; -GABA-1171 PO; -MAGN400T2 PO; -MM S100C PO; -OLAN5TAB PO; -OXYC1TAB23; -RISATAB3 PO; -TIZA4TAB4 PO
[2020-02-18] MEDS ORDERED: OXYC1TAB23 (16:07)
[2020-02-18] MEDS ORDERED: FURO40TA2 PO (16:07)
[2020-02-18] MEDS ORDERED: AMOX875T2 PO (16:07)
[2020-02-18] MEDS ORDERED: GABA-845 PO (16:43)
[2020-02-18] MEDS ORDERED: MAGN400T2 PO (16:43)
[2020-02-18] MEDS ORDERED: FERR325T3 PO (16:43)
[2020-02-18] MEDS ORDERED: MM S100C PO (16:48)
[2020-02-18] MEDS ORDERED: PRED10TA2 PO (16:48)
[2020-02-18] MEDS ORDERED: SUMA100T2 PO (16:48)
--- NOTE | 2020-02-18 17:09 | REPVR ---
PROCEDURE INFORMATION: Exam: US Duplex Right Lower Extremity Veins, Limited Exam date and time: 02/18/2020 4:59 PM Age: 69 years old Clinical indication: Swelling (edema) of limb; Lower extremity, right TECHNIQUE: Imaging protocol: Real-time Duplex ultrasound of the Right Lower Extremity with 2-D juárez scale, color Doppler flow and spectral waveform analysis with image documentation. Limited exam was focused on the right lower extremity veins. COMPARISON: US Duplex, Ext LOWER veins, bilat BILATERAL 01/03/2020 5:40 PM FINDINGS: Right deep veins: Unremarkable. The common femoral, femoral, proximal profunda femoral and popliteal veins are patent without thrombus. Normal Doppler waveforms. Normal compressibility and/or augmentation response. Right superficial veins: Unremarkable. Saphenofemoral junction is patent without thrombus. Soft tissues: Unremarkable. IMPRESSION: No evidence of deep vein thrombosis. Electronically signed by: Armando Urbina On 02/18/2020 17:08:59 PM
[2020-02-18 17:23] LABS: HEMATOCRIT 28.8 % (36.0-47.0); HEMOGLOBIN 8.4 g/dl (12.0-15.5); MEAN CORPUSCULAR HEMOGLOBIN 29.5 pg (27.0-33.0); MEAN CORPUSCULAR HGB CONC 29.2 g/dl (32.0-36.5); MEAN CORPUSCULAR VOLUME 101.1 fl (80.0-96.0); PLATELET COUNT, AUTOMATED 367 10^3/uL (150-450); RED BLOOD COUNT 2.85 10^6/uL (4.00-5.40); WHITE BLOOD COUNT 12.8 10^3/uL (4.0-10.0)
[2020-02-18] MEDS ORDERED: ACETAMINOPHEN 500 MG TAB PO ONE (17:30)
[2020-02-18 17:54] LABS: ALBUMIN 2.8 GM/DL (3.2-5.2); BILIRUBIN,TOTAL 0.2 MG/DL (0.2-1.0); CALCIUM LEVEL 8.7 MG/DL (8.8-10.2); CREATININE FOR GFR 1.03 MG/DL (0.55-1.30); GLOMERULAR FILTRATION RATE 56.7 (>45); POTASSIUM SERUM 3.9 MEQ/L (3.5-5.1); TOTAL PROTEIN 6.5 GM/DL (6.4-8.2)
[2020-02-18 18:16] VITALS: BP 166/68
== END 2020-02-18 18:33 | disposition home or self-care (01) ==
LOC: M ED 15:50
DX: R22.43 Localized swelling, mass and lump, lower limb, bilateral (principal); E78.5 Hyperlipidemia, unspecified; I50.30 Unspecified diastolic (congestive) heart failure; I11.0 Hypertensive heart disease with heart failure; G25.81 Restless legs syndrome; J44.9 Chronic obstructive pulmonary disease, unspecified; I36.1 Nonrheumatic tricuspid (valve) insufficiency; I87.2 Venous insufficiency (chronic) (peripheral); Z79.2 Long term (current) use of antibiotics; Z79.51 Long term (current) use of inhaled steroids; Z79.52 Long term (current) use of systemic steroids; Z79.899 Other long term (current) drug therapy; Z87.891 Personal history of nicotine dependence; Z88.6 Allergy status to analgesic agent; Z88.8 Allergy status to other drugs, medicaments and biological substances

== ENCOUNTER → 2020-03-09 | Outpatient (REF) | payer MEDICARE, OTHER ==
[~2020-03-09] MED LIST changes: +EXCETAB33 PO; +FERR325T3 PO; +FURO40TA2 PO; +GABA-1171 PO; +MAGN400T2 PO; +MM S100C PO; +OLAN5TAB PO; +OXYC1TAB23; +RISATAB3 PO; +TIZA4TAB4 PO
[2020-03-09 15:37] LABS: BASO # 0.1 10^3/uL (0.0-0.2); BASO % 0.4 % (0.0-1.0); EOS % 0.3 % (0.0-3.0); HEMATOCRIT 34.1 % (36.0-47.0); LYMPH # 0.9 10^3/uL (1.5-5.0); LYMPH % 6.8 % (24.0-44.0); MEAN CORPUSCULAR HEMOGLOBIN 28.6 pg (27.0-33.0); MEAN CORPUSCULAR HGB CONC 29.3 g/dl (32.0-36.5); MEAN CORPUSCULAR VOLUME 97.4 fl (80.0-96.0); MONO # 0.4 10^3/uL (0.0-0.8); MONO % 2.6 % (0.0-5.0); NEUTROPHILS # 12.2 10^3/uL (1.5-8.5); NEUTROPHILS % 88.7 % (36.0-66.0); PLATELET COUNT, AUTOMATED 348 10^3/uL (150-450); WHITE BLOOD COUNT 13.8 10^3/uL (4.0-10.0)
[2020-03-09 15:59] LABS: ERYTHROCYTE SEDIMENTATION RATE 76 mm/hr (0-30)
[2020-03-09 16:02] LABS: ALBUMIN 3.5 GM/DL (3.2-5.2); ALT/SGPT 17 U/L (12-78); BILIRUBIN,TOTAL 0.2 MG/DL (0.2-1.0); BLOOD UREA NITROGEN 16 MG/DL (7-18); C REACTIVE PROTEIN QUANTITATIV 2.78 MG/DL (0.00-0.30); CALCIUM LEVEL 9.2 MG/DL (8.8-10.2); CARBON DIOXIDE LEVEL 31 MEQ/L (21-32); CHLORIDE LEVEL 103 MEQ/L (98-107); CREATININE FOR GFR 0.93 MG/DL (0.55-1.30); GLOMERULAR FILTRATION RATE > 60.0 (>45); GLUCOSE, FASTING 102 MG/DL (70-100); POTASSIUM SERUM 4.6 MEQ/L (3.5-5.1); SODIUM LEVEL 140 MEQ/L (136-145); TOTAL PROTEIN 7.5 GM/DL (6.4-8.2)
== END ==
LOC: M SFHCPLAZ 13:55
PROVIDERS: ATTEND Internal Medicine Infectious Disease
DX: T81.49XA Infection following a procedure, other surgical site, initial encounter (principal); Z79.899 Other long term (current) drug therapy
CPT/HCPCS: 36415; 80053; 85025; 85652; 86140; G0463

== ENCOUNTER 2020-03-22 02:24 | Inpatient (IN) | payer MEDICARE, BC, OTHER ==
[~2020-03-22] VITALS: Ht 160 cm; Wt 105.9 kg
[2020-03-22] VITALS (20 sets, daily range): BP systolic 109–169; BP diastolic 52–99; O2SAT 93–99
[~2020-03-22 02:24] MED LIST changes: -EXCETAB33 PO; -GABA-1171 PO; -OLAN5TAB PO; -RISATAB3 PO; -TIZA4TAB4 PO
[2020-03-22] MEDS ORDERED: NALOXONE 2MG/2ML SYRINGE (J2310 PER 1MG) IV STA ×2 (02:26→02:46)
[2020-03-22] MEDS ORDERED: NS 500 ML IV ONE (02:30)
[2020-03-22] MEDS ORDERED: OLAN5TAB PO ×2 (02:36→02:39)
[2020-03-22] MEDS ORDERED: TIZA4TAB4 PO (02:36)
[2020-03-22] MEDS ORDERED: RISATAB3 PO (02:36)
[2020-03-22] MEDS ORDERED: EXCETAB33 PO (02:45)
[2020-03-22 02:59] LABS: BASO # 0.1 10^3/uL (0.0-0.2); BASO % 0.5 % (0.0-1.0); EOS # 0.2 10^3/uL (0.0-0.5); EOS % 1.4 % (0.0-3.0); HEMATOCRIT 32.3 % (36.0-47.0); HEMOGLOBIN 9.1 g/dl (12.0-15.5); LYMPH # 1.1 10^3/uL (1.5-5.0); LYMPH % 9.2 % (24.0-44.0); MEAN CORPUSCULAR HGB CONC 28.2 g/dl (32.0-36.5); MEAN CORPUSCULAR VOLUME 99.4 fl (80.0-96.0); NEUTROPHILS # 9.9 10^3/uL (1.5-8.5); PLATELET COUNT, AUTOMATED 249 10^3/uL (150-450); RED BLOOD COUNT 3.25 10^6/uL (4.00-5.40); WHITE BLOOD COUNT 12.3 10^3/uL (4.0-10.0)
[2020-03-22 03:30] LABS: ACETAMINOPHEN LEVEL 12.3 UG/ML (10.0-30.0); ALBUMIN 3.4 GM/DL (3.2-5.2); ALT/SGPT 25 U/L (12-78); BILIRUBIN,DIRECT < 0.1 MG/DL (0.0-0.2); BILIRUBIN,TOTAL 0.2 MG/DL (0.2-1.0); BLOOD UREA NITROGEN 16 MG/DL (7-18); CARBON DIOXIDE LEVEL 31 MEQ/L (21-32); CHLORIDE LEVEL 103 MEQ/L (98-107); CK-MB VALUE MASS 1.5 NG/ML (<3.6); CPK CREATINE PHOSPHOKINASE 55 U/L (26-192); CREATININE FOR GFR 1.14 MG/DL (0.55-1.30); ETHYL ALCOHOL (ETHANOL) < 0.003 % (0.000-0.010); GLOMERULAR FILTRATION RATE 50.5 (>45); GLUCOSE, FASTING 118 MG/DL (70-100); MB/CK RELATIVE INDEX 2.73 (< OR =4); POTASSIUM SERUM 4.5 MEQ/L (3.5-5.1); SALICYLATE LEVEL 5.8 MG/DL (5.0-30.0); SODIUM LEVEL 139 MEQ/L (136-145); TROPONIN I 0.11 NG/ML (< 0.10)
[2020-03-22 03:33] LABS: AMPHETAMINES LEVEL URINE NEGATIVE (NEGATIVE); BARBITURATES URINE NEGATIVE (NEGATIVE); BENZODIAZEPINES URINE NEGATIVE (NEGATIVE); CANNABINOIDS URINE NEGATIVE (NEGATIVE); COCAINE METABOLITE URINE NEGATIVE (NEGATIVE); METHADONE URINE NEGATIVE (NEGATIVE); OPIATES URINE POSITIVE (NEGATIVE); PHENCYCLIDINE URINE NEGATIVE (NEGATIVE)
--- NOTE | 2020-03-22 04:28 | REPVR ---
PROCEDURE INFORMATION: Exam: XR Chest, 1 View Exam date and time: 03/22/2020 2:55 AM Age: 69 years old Clinical indication: Other: Altered mental status TECHNIQUE: Imaging protocol: XR of the chest Views: 1 view. COMPARISON: CR Chest, 2 view PA, Lat 01/05/2020 9:55 AM FINDINGS: Limitations: Examination is limited somewhat by the portable technique. Multiple overlying electrocardiograph leads. Lungs: Unremarkable. No consolidation. Pleural space: Unremarkable. No pleural effusion. No pneumothorax. Heart/Mediastinum: Unremarkable. No cardiomegaly. Vasculature: Mild atherosclerotic calcification of the aortic arch. Bones/joints: Status post cervical fusion. Status post thoracolumbar fusion. IMPRESSION: No acute infiltrate. Electronically signed by: Tiny Kim On 03/22/2020 04:27:52 AM
[2020-03-22] MEDS ORDERED: ALBUTEROL SULFATE 2.5 MG/0.5 ML INH NEB SOLN NEB ONE (04:30)
[2020-03-22] MEDS ORDERED: methylPREDNISolone 125MG 2ML VIAL IV ONE (04:30)
[2020-03-22] MEDS ORDERED: NALOXONE INJ 0.4MG/1ML VIAL (J2310 PER 1MG) IV PRN (04:45)
[2020-03-22] MEDS ORDERED: IPRATROPIUM 0.5MG/ALBUTEROL 2.5MG INH SOL UD 3ML (DUONEB) NEB PRN (04:45)
[2020-03-22 04:58] LABS: NT-PRO BNP 2574 PG/ML (<125)
[2020-03-22] MEDS ORDERED: ROPI0.253 PO (05:03)
[2020-03-22] MEDS ORDERED: OXYC10TA3 PO (05:03)
[2020-03-22] MEDS ORDERED: ADVA230A INH (05:05)
[2020-03-22] MEDS ORDERED: ALBUTEROL 90 MCG/ACT 8GM HFA INHALER INH PRN (05:15)
--- NOTE | 2020-03-22 05:47 | IPNPDOC ---
Text Note Date of Service The patient was seen on 03/22/20. NOTE TIME OF SERVICE 545 AM is a 69 yr old w a hx of COPD, lung cancer managed w RU lobectomy, CKD3, JESS and chronic back pain w recent T9-L2 fusion who was brought to the ER for evaluation of encephalopathy that resolved with narcan; she will be admitted for management of acute hypercapneic respiratory failure 1. Metabolic Encephalopathy 2/2 hypercapnia, possibly hyperammonemia and ADR to opiates Plan: neurochecks & Narcan PRN 2.Acute hypercapnic respiratory failure Plan:will ask the day time team ton consult for BIPAP co-management / f/u ABGS 3.Elevated Troponin Possibly 2/2 demand ischemia vs worsening Pulm HTN/ CHF Plan: telemetry / trend trops / f/u Echo 4. Mild Acute COPD She is tachypneic with increased O2 requirements Plan: albuterol, nebs and solumedrol x 1 / f/u respirator panel 5.Macrocytic Anemia Plan: f/u iron studies, B12, folate and stool occult rest per 's H&P VS,Fishbone, I+O VS, Francese, I+O Laboratory Tests 03/22/20 02:40 Vital Signs Date Time Temp Pulse Resp B/P (MAP) Pulse Ox O2 Delivery O2 Flow Rate FiO2 03/22/20 05:36 102 98 03/22/20 05:15 119/57 (77) 03/22/20 03:00 26 03/22/20 02:56 98.8 03/22/20 02:43 Non-Rebreather 10.0 03/22/20 02:40 40 I&O- Last 24 Hours up to 6 AM 03/22/20 06:00 Intake Total 500 ml Balance 500 ml JESSICA VALE MD Mar 22, 2020 05:47
--- NOTE | 2020-03-22 06:04 | HPEPDOC ---
[facility] Medical History & Physical Date of Admission Mar 22, 2020 Date of Service: Mar 22, 2020 Attending Physician: JESSICA VALE MD History and Physical CHIEF COMPLAINT: Obtundation, confusion HISTORY OF PRESENT ILLNESS: Patient is a 69 year old female who presented to the [facility] ER with altered mental status/obtundation. Majority of the history is obtained from the patients at bedside. Patients states that they were sitting down watching TV. He states that his had fallen asleep on the recliner. He had noticed that she was starting to twitch and shake her arms. At that point he went to wake her up. He states that she was difficult to arose but was able to follow commands. The patient states that she has taken her medications as prescribed. She denies any recent changes in her medications or doses. She denies any fevers, chills, nausea, vomiting or diarrhea. In the ER the patient was lethargic. She was vitally stable. An ABG obtained demonstrated a respiratory acidosis with pH of 7.15, PCO2 of 95.8. Patient was given Narcan and placed on Bi-level with improvement in her mentation. She received a chest x-ray which was negative for any acute findings. She did have a mild elevation in troponin but denied any chest pain. There was no acute findings on her EKG. Hospitalist service was consulted and the patient was admitted for further evaluation and management PAST MEDICAL HISTORY: 1. Chronic Kidney Disease Stage 3a 2. COPD 3. History of lung cancer s/p right upper lobectomy 4. Iron Deficiency Anemia 5. GERD 6. Restless Leg Syndrome 7. Chronic Back Pain 8. History T9-L2 fusion complicated by post-operative infection PAST SURGICAL HISTORY: 1. T9-L2 Fusion 2. Cholecystectomy 3. Multiple back and neck surgeries 4. Right upper lobectomy SOCIAL HISTORY: Patient lives at home with her . She is a former smoker. She denies any IV or illicit drug use FAMILY HISTORY: No pertinent family history ALLERGIES: Please see below. REVIEW OF SYSTEMS: CONSTITUTIONAL: Denies fevers or chills. Denies night sweats. Denies unintentional weightloss HEENT: Denies changes in vision. Denies cough. Denies sore throat. Denies difficulty swallowing CARDIOVASCULAR: Denies chest pain, palpitations, or feelings of the heart racing RESPIRATORY: Denies shortness of breath. Denies cough or wheezing GASTROINTESTINAL: Denies abdominal pain. Denies nausea, vomiting, diarrhea or constipation GENITOURINARY: Denies dysuria. Denies increased frequency SKIN: Denies rashes or lesions MUSCULOSKELETAL: Denies muscle weakness. Admits to chronic pain in the back and neck NEUROLOGICAL: Denies confusion. Admits to feeling tired. Denies changes in her gait from baseline PSYCHIATRIC: Admits to history of depression. Denies suicidal ideation ENDOCRINE: Denies heat or cold intolerance HEMATOLOGIC/LYMPHATIC: Denies history of easy bruising or bleeding. Denies history of DVT or PE HOME MEDICATIONS: Please see below. PHYSICAL EXAMINATION: VITAL SIGNS: Temperature 98.8, pulse 95, respiratory rate 10, blood pressure 132/63, pulse oximetry 98% Bi-level FiO2 40% GENERAL APPEARANCE: Patient is awake, alert, and oriented. She is tired appearing and falling asleep during portions of the examination HEENT: Atraumatic, normocephalic. Eyes are nonicteric. Trachea is midline. Mucous membranes are pink and moist CARDIOVASCULAR: Normal S1, S2. Regular rate and rhythm. No clicks rubs or murmurs LUNGS: Clear vesicular breath sounds anteriorly. No wheezes, rhonchi, or rales. Symmetric chest expansion with good respiratory effort ABDOMEN: Morbidly obese. Soft. Nondistended. Nontender. Normoactive bowel sounds throughout SKIN: Midline incision present on patients back extending for T7 region to L5. Appears to be dehiscing. Does not appear open or grossly infected EXTREMITIES: Trace bilateral lower extremity edema. Full and equal pulses in bilateral upper and lower extremities NEUROLOGICAL: No focal neurological deficits. Mentation appears appropriate. PSYCHIATRIC: Mood and affect appear appropriate LABORATORY DATA: See below. IMAGING: PROCEDURE INFORMATION: Exam: XR Chest, 1 View Exam date and time: 03/22/2020 2:55 AM Age: 69 years old Clinical indication: Other: Altered mental status TECHNIQUE: Imaging protocol: XR of the chest Views: 1 view. COMPARISON: CR Chest, 2 view PA, Lat 01/05/2020 9:55 AM FINDINGS: Limitations: Examination is limited somewhat by the portable technique. Multiple overlying electrocardiograph leads. Lungs: Unremarkable. No consolidation. Pleural space: Unremarkable. No pleural effusion. No pneumothorax. Heart/Mediastinum: Unremarkable. No cardiomegaly. Vasculature: Mild atherosclerotic calcification of the aortic arch. Bones/joints: Status post cervical fusion. Status post thoracolumbar fusion. IMPRESSION: No acute infiltrate. MICROBIOLOGY: Please see below. ASSESSMENT: Patient is a 69 year old female who presented to the [facility] ER with altered mental status/obtundation and found to be in acute on chronic hypercarbic respiratory failure likely secondary to polypharmacy. Patient has been given narcan and placed on Bi-level with improvement in mentation . PLAN: 1. Acute on chronic hypercarbic respiratory failure likely 2/2 polypharmacy in setting of CKD Stage III -Patient found obtunded at home. noticed twitching or her arms which is likely secondary to hypercarbia. Patient takes multiple sedating medications including Percocet, Gabapentin, and tizanidine. Condition likely secondary to polypharmacy although patient states she believes she took her medications as usual -Patient currently on Bi-level. pH of 7.15, PCO2 of 95.8. Bi-level settings of IPAP: 16; EPAP 8. RR 8, Fio2 40% -Patients mentation improving with Narcan and Bi-level. -Narcan PRN for increased lethargy and respiratory depression -If no improvement in PCO2 with Bi-level consider Pulmonary consultation -Will hold all sedating medications 2. Metabolic Encephalopathy 2/2 polypharmacy -Patients mentation improving. Renal function appears to be at baseline. Will continue to monitor -Holding all sedating medications -Ammonia level is normal -Continue with Bi-level for management of CO2 retention -Narcan PRN 3. Elevated Troponin -Mild elevation in troponin at 0.11. Likely demand 2/2 acute on chronic hypercarbic respiratory failure. -Will trend troponins 4. Iron Deficiency Anemia -Patient has established iron deficiency anemia from previous hospitalization. She is currently on iron supplementation. -Recommend outpatient follow-up with PCP for GI referral for colonoscopy -Continue iron supplementation 5. History of Post-operative wound infection with retained hardware -Patient had back surgery over the summer. This was complicated by post-op wound infection with Enterococcus faecalis. -Patient follows with Dr. Muse outpatient and is on chronic suppressive therapy with Augmentin -Continue Augmentin 6. Diastolic Congestive Heart Failure -Appears compensated. Continue Lasix 7. GERD -Continue protonix 8. COPD -Continue home inhalers -Duonebs PRN 9. Restless Leg -Continue Requip 10. DVT Prophylaxis -Heparin SQ Vital Signs Vital Signs Date Time Temp Pulse Resp B/P (MAP) Pulse Ox O2 Delivery O2 Flow Rate FiO2 03/22/20 05:00 95 123/59 (80) 98 03/22/20 03:00 26 03/22/20 02:56 98.8 03/22/20 02:43 Non-Rebreather 10.0 03/22/20 02:40 40 Laboratory Data Labs 24H Laboratory Tests 2 03/22/20 02:32: POC pH (Misc Panel) 7.150*L, POC Base Excess (Misc Panel) 4.0H, POC Saturated Percent O2 (Misc) 99H, POC pO2 (Misc Panel) 203.0H, POC pCO2 (Misc Panel) 95.8*H , POC HCO3 (Misc Panel) 33.3H, POC Total CO2 (Misc Panel) 36.0H, POC Troponin I (Misc) 0.09H 03/22/20 02:36: Bedside Glucose (Misc Panel) 122H 03/22/20 02:39: Urine Color YELLOW, Urine Appearance CLEAR, Urine pH 5.0, Urine Specific [place] 1.015, Urine Protein NEGATIVE, Urine Glucose (UA) NEGATIVE, Urine Ketones NEGATIVE, Urine Blood 1+H, Urine Nitrite NEGATIVE, Urine Bilirubin NEGATIVE, Urine Urobilinogen 0.2, Urine Leukocyte Esterase TRACEH, Urine WBC (Auto) 0, Urine RBC (Auto) 3, Urine Hyaline Casts (Auto) 12, Urine Bacteria (Auto) NEGATIVE, Urine Squamous Epithelial Cells 0, Urine Mucus (Auto) SMALL, Urine Sperm (Auto) , Urine Opiates Screen POSITIVEH, Urine Methadone Screen NEGATIVE, Urine Barbiturates Screen NEGATIVE, Urine Phencyclidine Screen NEGATIVE, Urine Amphetamines Screen NEGATIVE, Urine Benzodiazepines Screen NEGATIVE, Urine Cocai ne Metabolite Screen NEGATIVE, Urine Cannabinoids Screen NEGATIVE 03/22/20 02:40: Immature Granulocyte % (Auto) 0.9, Neutrophils (%) (Auto) 80.0H, Lymphocytes (%) (Auto) 9.2L, Monocytes (%) (Auto) 8.0H, Eosinophils (%) (Auto) 1.4, Basophils (%) (Auto) 0.5, Neutrophils # (Auto) 9.9H, Lymphocytes # (Auto) 1.1L, Monocytes # (Auto) 1.0H, Eosinophils # (Auto) 0.2, Basophils # (Auto) 0.1, Nucleated Red Blood Cells % (auto) 0.0, Anion Gap 5L, Glomerular Filtration Rate 50.5, Lactic Acid Level 0.7, Calcium Level 8.0L, Total Bilirubin 0.2, Direct Bilirubin < 0.1, Aspartate Amino Transf (AST/SGOT) 17, Alanine Aminotransferase (ALT/SGPT) 25, Alkaline Phosphatase 174H, Ammonia 43H, Total Creatine Kinase 55, Creatine Kinase MB 1.5, Creatine Kinase MB Relative Index 2.73, Troponin I 0.11H, RH-Bbd-O-Type Natriuretic Peptide 2574H, Total Protein 7.0, Albumin 3.4, Albumin/Globulin Ratio 0.9L, Thyroid Stimulating Hormone (TSH) 1.060, Salicylates Level 5.8, Acetaminophen Level 12.3, Ethyl Alcohol Level < 0.003 CBC/BMP Laboratory Tests 03/22/20 02:40 Microbiology Microbiology 03/22/20 Respiratory Virus Panel (PCR) ([facility]), Received Pending 03/22/20 Urine Culture, Received Pending Home Medications Scheduled Amoxicillin/Potassium Clav (Amox-Clav 875-125 mg Tablet) 1 Each Tablet, 1 TAB PO BID Atorvastatin Calcium (Atorvastatin Calcium) 20 Mg Tablet, 20 MG PO QHS Ferrous Sulfate (Ferrous Sulfate) 325 Mg Tablet.dr, 325 MG PO DAILY Fluticasone Propion/Salmeterol (Advair Hfa 230-21 Mcg Inhaler) 12 Gm Hfa.aer.ad, 2 PUFF INH BID Furosemide (Furosemide) 40 Mg Tablet, 40 MG PO DAILY Gabapentin (Gabapentin) 400 Mg Capsule, 400 MG PO TID L.acidoph/L.bulg/B.bif/S.therm (Hanna-Bid Caplet) 1 Each Tablet, 3 CAP PO BID Lactobacillus Acidophilus (Acidophilus) 1 Each Tablet, 1 TAB PO BID Latanoprost (Xalatan) 0.005% 2.5ML Drops, 1 DROP OU QHS Olanzapine (Olanzapine) 5 Mg Tablet, 5 MG PO BID Pantoprazole Sodium (Pantoprazole Sodium) 40 Mg Tablet.dr, 40 MG PO DAILY Potassium Chloride (Potassium Chloride) 20 Meq Tab.er.prt, 40 MEQ PO QAM Ropinirole HCl (Ropinirole HCl) 0.25 Mg Tablet, 0.5 MG PO QAM Ropinirole HCl (Ropinirole HCl) 0.25 Mg Tablet, 0.25 MG PO QPM Tizanidine HCl (Tizanidine HCl) 4 Mg Tablet, 4 MG PO QID Scheduled PRN Albuterol Sulfate (Ventolin Hfa) 108 Mcg/Act Aer, 2 PUFFS INH Q4H PRN for SHORTNESS OF BREATH Aspirin/Acetaminophen/Caffeine (Excedrin Migraine Caplet) 1 Each Tablet, 2 TAB- CAP PO DAILY PRN for HEADACHE Oxycodone HCl/Acetaminophen (Oxycodone-Acetaminophen 10-325) 1 Each Tablet, 1 TAB PO Q4H PRN for PAIN Sumatriptan Succinate (Sumatriptan Succinate) 100 Mg Tablet, 1 TAB PO ASDIRECTED PRN for MIGRAINE may repeat in 2 hours; do not exceed 200 mg in 24 hours Allergies Coded Allergies: Benzodiazepines (Verified Adverse Reaction, Intermediate, DELERIUM, 11/25/19) fentanyl (Verified Adverse Reaction, Mild, LOOPY, 11/20/19) morphine (Verified Adverse Reaction, Mild, SEDATION; profound, 11/20/19) pregabalin (Verified Adverse Reaction, Mild, FEET SWELLING, 11/25/19) A-FIB/CHADSVASC A-FIB History Current/History of A-Fib/PAF?: No JAMIA VU DO Mar 22, 2020 06:04
[2020-03-22] MEDS: ADVAIR HFA 230/21MCG INHALER INH SCH ×2 (08:00→21:00)
[2020-03-22] MEDS: AUGMENTIN 875 MG TAB PO SCH ×2 (08:16→21:32)
[2020-03-22] MEDS: PANTOPRAZOLE 40MG TAB (PROTONIX) PO SCH (08:17)
[2020-03-22] MEDS: rOPINIRole 0.25 MG TAB(REQUIP) PO SCH ×2 (08:17→21:32)
[2020-03-22 08:18] LABS: ABG BASE EXCESS 0.6 (-2.0-2.0); ABG HCO3 29.7 MEQ/L (22.0-26.0); ABG O2 SATURATION 93.9 % (95.0-99.0); ABG PARTIAL PRESSURE O2 72.7 mmHg (75.0-100.0)
[2020-03-22] MEDS: OLANZapine 5 MG TAB PO SCH ×2 (08:18→21:32)
[2020-03-22] MEDS: FUROSEMIDE 40 MG TAB PO SCH (08:18)
[2020-03-22] MEDS: FERROUS SULFATE 325MG TAB PO SCH (08:18)
[2020-03-22] MEDS: HEPARIN SOD (PORCINE) 5000UNITS/ML 1ML VIAL/SYRINGE SQ SCH ×2 (08:20→21:32)
[2020-03-22 08:21] LABS: ABG PARTIAL PRESSURE CO2 74.3 mmHg (35.0-45.0)
[2020-03-22 08:27] LABS: PERCENT SATURATION 13.4 % (13.2-45.0)
[2020-03-22 08:52] LABS: CK-MB VALUE MASS 1.6 NG/ML (<3.6); MB/CK RELATIVE INDEX 3.08 (< OR =4); TROPONIN I 0.08 NG/ML (< 0.10)
[2020-03-22 11:08] LABS: ABG BASE EXCESS 2.5 (-2.0-2.0); ABG HCO3 31.4 MEQ/L (22.0-26.0); ABG O2 SATURATION 95.4 % (95.0-99.0); ABG PARTIAL PRESSURE O2 79.7 mmHg (75.0-100.0); ABG STANDARD HCO3 26.6 MEQ/L (22.0-26.0); ABG TOTAL CO2 33.7 MEQ/L (23.0-31.0)
[2020-03-22 11:11] LABS: ABG PARTIAL PRESSURE CO2 74.4 mmHg (35.0-45.0); ABG pH (ARTERIAL) 7.243 UNITS (7.350-7.450)
[2020-03-22 14:46] LABS: CK-MB VALUE MASS 1.6 NG/ML (<3.6); MB/CK RELATIVE INDEX 3.08 (< OR =4); TROPONIN I 0.06 NG/ML (< 0.10)
[2020-03-22 17:06] LABS: ABG BASE EXCESS 2.3 (-2.0-2.0); ABG HCO3 30.1 MEQ/L (22.0-26.0); ABG O2 SATURATION 95.2 % (95.0-99.0); ABG PARTIAL PRESSURE O2 77.3 mmHg (75.0-100.0); ABG STANDARD HCO3 26.5 MEQ/L (22.0-26.0); ABG TOTAL CO2 32.1 MEQ/L (23.0-31.0); ABG pH (ARTERIAL) 7.284 UNITS (7.350-7.450)
[2020-03-22 17:10] LABS: ABG PARTIAL PRESSURE CO2 64.9 mmHg (35.0-45.0)
--- NOTE | 2020-03-22 18:22 | IPNPDOC ---
Subjective Date Seen The patient was seen on 03/22/20. Subjective Chief Complaint/HPI Mrs. Zimmerman is a 69 year old female with COPD, lung cancer s/p RU lobectomy, CKD stage 3, and chronic back pain here with toxic metabolic encephalopathy from acute on chronic hypercapnic respiratory failure and polypharmacy. This morning, she was seen with bipap. Later in the afternoon, when arrived, she was upset and agitated. Initially she seemed alert and orientated, but as the conversation continued she was not thinking clearly. She could not remember being fed at lunch. She is confused and thought that her was trying to take money from her. Later on, she thought that her was sick and was worried that her was trying to take care of her as well. She cannot leave against medical advice at this time. Objective Physical Examination General Exam: Positive: Mild Distress; Negative: Alert, Cooperative Eye Exam: Negative: Sclera icteric ENT Exam: Positive: Atraumatic Neck Exam: Positive: Supple Chest Exam: Positive: Diminished Heart Exam: Positive: Tachycardic, Regular Rhythm Abdomen Exam: Positive: Normal bowel sounds, Soft, Other (obese) Extremity Exam: Positive: Edema Skin Exam: Positive: Nl turgor and temperature Psych Exam: Positive: Anxiety; Negative: Mental status NL Assessment /Plan Assessment Mrs. Zimmerman is a 69 year old female with COPD, lung cancer s/p RU lobectomy, CKD stage 3, and chronic back pain here with toxic metabolic encephalopathy from acute on chronic hypercapnic respiratory failure and polypharmacy. She was on percocet, gabapentin, and tizanidine normally and had taken a cold medication prior to the hypercapnic event. While here, she has required the BIPAP. When she became more alert, she became agitated and did not want to wear a bipap. She is most likely a chronic retainer with her BMI and COPD history but would still need the BIPAP at this time. ICU/Pulmonary following for BIPAP management, recommendations appreciated. She is still altered and cannot make medical decisi ons. Plan/VTE VTE Prophylaxis Ordered?: Yes Plan 1. Toxic Metabolic Encephalopathy -Polypharmacy from opioid, muscle relaxant, gabapentin and newly added OTC "cold" medication -Acute on chronic hypercarbic respiratory failure -Holding above medications and Bipap 2. Acute on chronic hypercarbic respiratory failure -BMI of 42, may have OHS -COPD -Requiring Bipap. ICU/Pulm following, recommendations appreciated 3. History of Post-operative wound infection with retained hardware -Back surgery over the summer which was complicated by post-op wound infection with Enterococcus faecalis -Has been following with Dr. Muse outpatient -Continue Augmentin -Small open ulcer on back, does not appear to be infected. No erythema, no pus. Continue wound care. 4. Diastolic CHF -Continue lasix 5. RLS -Continue Ropinirole 6. DVT ppx -Heparin VS, I&O, 24H, Fishbone Vital Signs/I&O Vital Signs Date Time Temp Pulse Resp B/P (MAP) Pulse Ox O2 Delivery O2 Flow Rate FiO2 03/22/20 16:15 120 19 93 3.0 03/22/20 16:00 30 03/22/20 16:00 98.8 128/59 (85) NIPPV (BIPAP/CPAP) I&O- Last 24 Hours up to 6 AM 03/22/20 06:00 Intake Total 500 ml Balance 500 ml Laboratory Data 24H LABS Laboratory Tests 2 03/22/20 02:32: POC pH (Misc Panel) 7.150*L, POC Base Excess (Misc Panel) 4.0H, POC Saturated Percent O2 (Misc) 99H, POC pO2 (Misc Panel) 203.0H, POC pCO2 (Misc Panel) 95.8*H, POC HCO3 (Misc Panel) 33.3H, POC Total CO2 (Misc Panel) 36.0H, POC Troponin I (Misc) 0.09H 03/22/20 02:36: Bedside Glucose (Misc Panel) 122H 03/22/20 02:39: Urine Color YELLOW, Urine Appearance CLEAR, Urine pH 5.0, Urine Specific [place] 1.015, Urine Protein NEGATIVE, Urine Glucose (UA) NEGATIVE, Urine Ketones NEGATIVE, Urine Blood 1+H, Urine Nitrite NEGATIVE, Urine Bilirubin NEGATIVE, Urine Urobilinogen 0.2, Urine Leukocyte Esterase TRACEH, Urine WBC (Auto) 0, Urine RBC (Auto) 3, Urine Hyaline Casts (Auto) 12, Urine Bacteria (Auto) NEGATIVE, Urine Squamous Epithelial Cells 0, Urine Mucus (Auto) SMALL, Urine Sperm (Auto) , Urine Opiates Screen POSITIVEH, Urine Methadone Screen NEGATIVE, Urine Barbiturates Screen NEGATIVE, Urine Phencyclidine Screen NEGATIVE, Urine Amphetamines Screen NEGATIVE, Urine Benzodiazepines Screen NEGATIVE, Urine Cocaine Metabolite Screen NEGATIVE, Urine Cannabinoids Screen NEGATIVE 03/22/20 02:40: Immature Granulocyte % (Auto) 0.9, Neutrophils (%) (Auto) 80.0H, Lymphocytes (%) (Auto) 9.2L, Monocytes (%) (Auto) 8.0H, Eosinophils (%) (Auto) 1.4, Basophils (%) (Auto) 0.5, Neutrophils # (Auto) 9.9H, Lymphocytes # (Auto) 1.1L, Monocytes # (Auto) 1.0H, Eosinophils # (Auto) 0.2, Basophils # (Auto) 0.1, Nucleated Red Blood Cells % (auto) 0.0, Anion Gap 5L, Glomerular Filtration Rate 50.5, Lactic Acid Level 0.7, Calcium Level 8.0L, Total Bilirubin 0.2, Direct Bilirubin < 0.1, Aspartate Amino Transf (AST/SGOT) 17, Alanine Aminotransferase (ALT/SGPT) 25, Alkaline Phosphatase 174H, Ammonia 43H, Total Creatine Kinase 55, Creatine Kinase MB 1.5, Creatine Kinase MB Relative Index 2.73, Troponin I 0.11H, TG-Ack-P-Type Natriuretic Peptide 2574H, Total Protein 7.0, Albumin 3.4, Albumin/Globulin Ratio 0.9L, Thyroid Stimulating Hormone (TSH) 1.060, Salicylates Level 5.8, Acetaminophen Level 12.3, Ethyl Alcohol Level < 0.003 03/22/20 06:06: Iron Level 50, Total Iron Binding Capacity 372, Transferrin % Saturation 13.4, Ferritin 62 03/22/20 08:02: Total Creatine Kinase 52, Creatine Kinase MB 1.6, Creatine Kinase MB Relative Index 3.08, Troponin I 0.08# 03/22/20 08:03: Blood Gas Bicarbonate Standard 25.0, Arterial Blood pH 7.220*L, Arterial Blood Partial Pressure CO2 74.3*H, Arterial Blood Partial Pressure O2 72.7L, Arterial Blood Total CO2 32.0H, Arterial Blood HCO3 29.7H, Arterial Blood Base Excess 0.6, Arterial Blood Oxygen Saturation 93.9L 03/22/20 10:52: Blood Gas Bicarbonate Standard 26.6H, Arterial Blood pH 7.243*L, Arterial Blood Partial Pressure CO2 74.4*H, Arterial Blood Partial Pressure O2 79.7, Arterial Blood Total CO2 33.7H, Arterial Blood HCO3 31.4H, Arterial Blood Base Excess 2.5H, Arterial Blood Oxygen Saturation 95.4 03/22/20 14:04: Total Creatine Kinase 52, Creatine Kinase MB 1.6, Creatine Kinase MB Relative Index 3.08, Troponin I 0.06# 03/22/20 16:56: Blood Gas Bicarbonate Standard 26.5H, Arterial Blood pH 7.284L, Arterial Blood Partial Pressure CO2 64.9*H, Arterial Blood Partial Pressure O2 77.3, Arterial Blood Total CO2 32.1H, Arterial Blood HCO3 30.1H, Arterial Blood Base Excess 2.3H, Arterial Blood Oxygen Saturation 95.2 CBC/BMP Laboratory Tests 03/22/20 02:40 Microbiology Microbiology 03/22/20 Blood Culture, Received Pending 03/22/20 Blood Culture, Received Pending 03/22/20 Respiratory Virus Panel (PCR) ([facility]) - Final, Complete 03/22/20 Urine Culture, Received Pending HOLGER REDDY DO Mar 22, 2020 18:22
[2020-03-22] MEDS: IPRATROPIUM 0.5MG/ALBUTEROL 2.5MG INH SOL UD 3ML (DUONEB) NEB SCH (20:04)
[2020-03-22] MEDS: ATORVASTATIN 20 MG TAB PO SCH (21:32)
[2020-03-22] MEDS: LATANOPROST 0.005% OPHTH SOLN 2.5 ML OU SCH (21:32)
[2020-03-23] VITALS (8 sets, daily range): BP systolic 115–149; BP diastolic 58–71
[2020-03-23] MEDS: IPRATROPIUM 0.5MG/ALBUTEROL 2.5MG INH SOL UD 3ML (DUONEB) NEB SCH ×4 (01:49→19:35)
[2020-03-23 01:56] LABS: ABG HCO3 29.4 MEQ/L (22.0-26.0); ABG O2 SATURATION 97.8 % (95.0-99.0); ABG PARTIAL PRESSURE O2 99.5 mmHg (75.0-100.0); ABG STANDARD HCO3 26.2 MEQ/L (22.0-26.0); ABG TOTAL CO2 31.3 MEQ/L (23.0-31.0); ABG pH (ARTERIAL) 7.293 UNITS (7.350-7.450)
[2020-03-23 01:58] LABS: ABG PARTIAL PRESSURE CO2 62.1 mmHg (35.0-45.0)
[2020-03-23] MEDS ORDERED: RAMELTEON 8 MG TAB (ROZEREM) PO ONE (02:15)
[2020-03-23 05:16] LABS: HEMATOCRIT 30.3 % (36.0-47.0); HEMOGLOBIN 8.8 g/dl (12.0-15.5); MEAN CORPUSCULAR HEMOGLOBIN 28.5 pg (27.0-33.0); MEAN CORPUSCULAR VOLUME 98.1 fl (80.0-96.0); PLATELET COUNT, AUTOMATED 244 10^3/uL (150-450); RED BLOOD COUNT 3.09 10^6/uL (4.00-5.40); WHITE BLOOD COUNT 9.9 10^3/uL (4.0-10.0)
[2020-03-23 05:44] LABS: BLOOD UREA NITROGEN 16 MG/DL (7-18); CALCIUM LEVEL 8.7 MG/DL (8.8-10.2); CARBON DIOXIDE LEVEL 33 MEQ/L (21-32); CHLORIDE LEVEL 103 MEQ/L (98-107); CREATININE FOR GFR 0.78 MG/DL (0.55-1.30); GLOMERULAR FILTRATION RATE > 60.0 (>45); GLUCOSE, FASTING 98 MG/DL (70-100); MAGNESIUM LEVEL 1.8 MG/DL (1.8-2.4); POTASSIUM SERUM 3.9 MEQ/L (3.5-5.1); SODIUM LEVEL 141 MEQ/L (136-145); TROPONIN I 0.05 NG/ML (< 0.10)
[2020-03-23 06:05] LABS: ABG BASE EXCESS 4.8 (-2.0-2.0); ABG HCO3 31.8 MEQ/L (22.0-26.0); ABG O2 SATURATION 98.6 % (95.0-99.0); ABG PARTIAL PRESSURE O2 108.6 mmHg (75.0-100.0); ABG STANDARD HCO3 28.9 MEQ/L (22.0-26.0); ABG TOTAL CO2 33.6 MEQ/L (23.0-31.0); ABG pH (ARTERIAL) 7.338 UNITS (7.350-7.450)
[2020-03-23 06:09] LABS: ABG PARTIAL PRESSURE CO2 60.5 mmHg (35.0-45.0)
[2020-03-23] MEDS: ADVAIR HFA 230/21MCG INHALER INH SCH ×2 (07:32→19:36)
--- NOTE | 2020-03-23 08:00 | ECHO ---
DATE OF PROCEDURE: 03/22/2020 Age: 69 Gender: Female Height: 160 cm Weight: 108 kg REFERRING PHYSICIAN: Kait Hazel MD INDICATION: Dyspnea unspecified. MEASUREMENTS: 2D Measurements: Left atrium 3.6 cm Intraventricular septum 1.2 cm Posterior wall 1.2 cm Left ventricle diastole 4.4 cm Aortic root 3.0 cm Doppler Measurements: No aortic stenosis No aortic regurgitation Aortic valve velocity 185 cm/s LVOT velocity 111 cm/s Very mild mitral regurgitation No mitral stenosis Mitral E velocity 91.8 cm/s Mitral A velocity 126 cm/s Mild tricuspid regurgitation Estimated right ventricle systolic pressure 50-55 mmHg Estimated right atrial pressure 5-10 mmHg No pulmonic regurgitation Pulmonary artery acceleration time 74 msec MITRAL ANNULAR TISSUE DOPPLER E prime septal 7.1 cm/s, E prime lateral 7.6 cm/s DESCRIPTION: Rhythm was sinus tachycardia. Image quality was fair. This study was performed with the patient on a ventilator. This was a 2D, M-mode, color flow Doppler, and pulsed wave Doppler examination including mitral annular tissue Doppler. CONCLUSIONS: 1. Suggestive of moderately-severe elevation of estimated right ventricle systolic pressure (50-55 mmHg). Appearance of at least mild right ventricle dilatation with normal right ventricle systolic function. Probable at least mild left ventricular hypertrophy. Prominent moderator band of the right ventricle consistent with right ventricular hypertrophy. Structurally normal appearing tricuspid leaflets. Mild tricuspid regurgitation. Probably at least mild right atrial dilatation. 2. Normal left ventricle internal dimensions and wall thickness. Normal regional left ventricular (LV) wall motion and wall thickening. Normal left ventricular (LV) systolic function. Left ventricular ejection fraction (LVEF) 65% to 70% by visual assessment. Grade 1 left ventricular (LV) diastolic dysfunction (impaired relaxation filling pattern) in the setting of sinus tachycardia. 3. No pericardial effusion. 4. Very mild aortic valve sclerosis. No aortic regurgitation. 5. Mild mitral annular calcification. Very mild mitral regurgitation. No mitral stenosis. MTDD
[2020-03-23] MEDS: FERROUS SULFATE 325MG TAB PO SCH (08:38)
[2020-03-23] MEDS: HEPARIN SOD (PORCINE) 5000UNITS/ML 1ML VIAL/SYRINGE SQ SCH ×2 (08:38→20:10)
[2020-03-23] MEDS: PANTOPRAZOLE 40MG TAB (PROTONIX) PO SCH (08:38)
[2020-03-23] MEDS: OLANZapine 5 MG TAB PO SCH ×2 (08:38→20:11)
[2020-03-23] MEDS: AUGMENTIN 875 MG TAB PO SCH ×2 (08:38→20:10)
[2020-03-23] MEDS: FUROSEMIDE 40 MG TAB PO SCH (08:38)
[2020-03-23] MEDS: rOPINIRole 0.25 MG TAB(REQUIP) PO SCH ×2 (08:38→20:10)
--- NOTE | 2020-03-23 08:38 | CR ---
CRITICAL CARE CONSULTATION NOTE DATE OF CONSULTATION: 03/22/2020 SUBJECTIVE: I was called to the intensive care unit (ICU) to evaluate this 69-year-old female with acute respiratory failure. She presented to the emergency department with somnolence and an arterial blood gas showed respiratory acidosis. Noninvasive positive pressure ventilation has been applied. The patient has an extensive pulmonary history including obstructive lung disease secondary to 60-pack years of cigarette smoking. She is oxygen dependant. She suffered lung carcinoma in 2009 that required a wedge resection for stage 1 adenocarcinoma. No adjuvant therapy was given. She was diagnosed in 2018 with obstructive sleep apnea syndrome, but has not been using CPAP, which had been prescribed at a pressure of 16. She is taking multiple medications, some of which were added since a thoracolumbar fusion surgery performed earlier this year, which was complicated by deep vein thrombosis (DVT) and pulmonary embolism. An echocardiogram this summer revealed a pulmonary hypertension of 60 to 65. OBJECTIVE: At bedside, she is somnolent with muscle twitching secondary to hypercarbia. Her temperature is 97.2, T-max over the past 24 hours 98.8, pulse rate 104, respirations 16, blood pressure 140/67. She is awake. Speech is uninterpretable. HEENT: Oral mucosa is pink. Neck is mukherjee and jugular veins are not able to be appreciated. There is no meningismus. Heart sounds are regular, but quite distant. Breath sounds are diminished with crepitants rales in the bases bilaterally. Abdomen is soft and obese. Extremities are edematous, right leg more than the left. DIAGNOSTIC STUDIES: Her white cell count is 12.3, hemoglobin 9.1, hematocrit 32.3, platelet count 249,000. Sodium 139, potassium 4.5, chloride 103, CO2 of 31, BUN 16, creatinine 1.14, glucose 118. Brain natriuretic peptide was 2574. An arterial blood gas on admission showed a pH of 7.15, pCO2 of 96, pO2 of 203 and more recently pH of 7.22, pCO2 of 74, pO2 of 72. A chest x-ray shows a cervical fixation plate. The lung goff are full. There is significant cardiomegaly. ASSESSMENT AND PLAN: The primary problem requiring critical attention is acute on chronic respiratory failure with hypercarbia. I will increase noninvasive positive pressure ventilation to ensure airway patency given her history of obstructive sleep apnea syndrome and we will recheck arterial blood gases. Pulmonary hypertension is multifactorial related to her obesity, her obstructive sleep apnea, underlying obstructive lung disease, prior history of lung cancer, and recent pulmonary embolism. In light of the significant elevation in pulmonary artery (PA) systolic pressures, we will keep her saturation between 88 and 90. Chronic obstructive pulmonary disease. The patient has a remote history of smoking 60-pack years and is on bronchodilator support. 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 In light of this, we will target moderately lower tidal volumes on noninvasive positive pressure ventilation. Fluid volume. The patient appears full to me. Diuretics have been given. We will follow intake and output (I and O). Deep vein thrombosis (DVT) and ulcer prophylaxis are in place. The patients condition remains critical. Prognosis is guarded. One hour and 58 minutes was spent in the provision of bedside critical care and coordination exclusive of procedure time. [facility]
--- NOTE | 2020-03-23 11:30 | IPNPDOC ---
Text Note Date of Service The patient was seen on 03/23/20. NOTE S : The patient says she is doing better but is only oriented to person and not oriented to time or place She is following commands when directed to do something like open her moth or move her arms . The nurse reports no acute overnight events but did say that the patient is non compliant with her Bi Pap mask and keeps removing it from her face which makes her desturate. O : When I examined the patient, the patient was off the Bi-Pap and had been so, for about 30 mins and was saturating 95% and was under no acute distress, not using any accessory muscles of respiration, no labored breathing. She has been able to take her medication orally but is still under aspiration precaution as far as food is concerned because of excessive sleepiness. The nurse mentioned that the patient has not been slept very well all night and was uncomfortable because of being on the Bi-Pap machine. Bi Pap settings are IPap =20 cm H20/ Set rate = 8 /EPap = 14 cm H2O ,Rise=3, Vt 470, Resp rate =17. PHYSICAL EXAMINATION: HEENT: Atraumatic, Normocephalic, mucous membranes moist, no scleral icterus, pallor +1. CVS: Rate and rhythm of S1,S2 normal. No heart murmurs heard. RESPIRATORY EXAM : limited: Due to patient refusing to move for a full lung exam. Patient has diminished bilateral breath sounds . No crackles, rales or wheezing appreciated as heard on the chest from the front and sides. ABDOMINAL :Obese abdomen, nondistended, non tender in all the 4 quadrants, Tympanic on percussion, normal bowel sounds . MUSCULOSKELETAL: Good range of motion in the four extremities . Recent back surgery done. Spine motion might be restricted- Could not assess. NEUROLOGICAL: Good motor strength as per the previous notes. The patient was ambulating at home. Sensations could not be examined because the patient was sleeping by now. She does move the extremities on pinching lightly. SKIN: Patients skin looks warm and well perfused with a normal capillary refill . No clubbing or cyanosis . The patient has an infected wound at the site of the back surgery infected with Enteroccocus fecalis treated with Amoxy Clav . Could not see the wound. It was covered in dressing. ASSESSMENT & PLAN: Mrs. Zimmerman is a 69 year old female with COPD, lung cancer s/p RU lobectomy, CKD stage 3, and chronic back pain here with toxic metabolic encephalopathy from acute on chronic hypercapnic respiratory failure and polypharmacy. She was on percocet, gabapentin, and tizanidine normally and had taken a cold medication prior to the hypercapnic event. She was found to have an ABG of pH 7.15, PCO2 of 95.8, While here, she has required the BIPAP. When she became more alert, she became agitated and did not want to wear a bipap. She is most likely a chronic retainer with her BMI and COPD history but would still need the BIPAP at this time. Pt was given Narcan in the Ed Pt is on BiPap with the settings of : IPap =20 cm H20/ Set rate = 8 /EPap = 14 cm H2O ,Rise=3, Vt= 470, Resp rate =17,O2= 25% >Acute on Chronic respiratory failure secondary to polypharmacy in the setting of CKD stage 3: -Pt is still not fully oriented but oriented to person and following commands as of this morning. -mind altering and sedative medications are on hold.(Gabapentin/percocet and Tizanidine) -Pt continuosly on Bi Pap -Her ABG's are improving . -Continuos monitoring of vitals. -Ordered a CXR for morning to reassess. >Metabolic encephalopathy secondary to poly pharmacy: -Hold medications causing respiratory depression and Hypercarbia. -The patient's ABG is improving .Her CO2 is 60.5 today .Other labs this morning are normal -Repeat ABG ordered . -Serum ammonia levels ordered to follow up on a high level on admission. -Continue monitoring vitals Q1h -Continue Bi-Pap. >Iron deficiency anemia: -Today her hemoglobin is 8.8. -She will be continued on her Iron supplementation - She is advised to undergo a colonoscopy /EGD as an outpatient procedure to find the cause of her anemia. >History of a post operative wound infection on the back: -She has been an Enterococcus fecalis wound infection at her operative site on her lower back for which she is already on Augmentin . -Continue Augmentin treatment here in the hospital. -Regular monitoring of vitals. -the patient is afebrile. >Diastolic Congestive heart failiure : -Stable on lasix -Continue lasix. >COPD: -Continue Home inhalers. -Duonebs PRN. >Restless leg syndrome: -Continue Requip. >DVT prophylaxis: -Heparin SQ. GIT prophylaxis: Protonix 40 mg daily. DISPOSITION: The patient is a likely a chronic retainer of CO2, but we need her Pco2 to come down by at least 55 to discharge her home. We will continue to assess and treat. - Dr. Menjivar: I was present for this patient encounter and participated in the lora components. The patient remains critically ill and dependent on NIPPV, some progress has been made as outlined above. I anticipate she will require NIPPV for another 24 hours as she is now able to tolerate being off at intervals. She has CHINTAN and will need home CPAP at . I also suspect she has OHS with some baseline Co2 retention and therefore any respiratory suppressing medication should be avoided or used with great caution. One hour and fifteen minutes was spent in bedside critical care and case coordination exclusive of any procedure time. VS,Fishbone, I+O VS, Fishbone, I+O Laboratory Tests 03/23/20 05:00 Vital Signs Date Time Temp Pulse Resp B/P (MAP) Pulse Ox O2 Delivery O2 Flow Rate FiO2 03/23/20 07:28 21 03/23/20 04:49 98.5 119 19 131/64 (87) 94 NIPPV (BIPAP/CPAP) 03/23/20 04:00 3.0 I&O- Last 24 Hours up to 6 AM 03/23/20 05:59 Intake Total 480 ml Output Total 1930 ml Balance -1450 ml GME ATTESTATION GME ATTESTATION My faculty preceptor for this patient encounter was physically present during the encounter and was fully available. All aspects of the patient interview, examination, medical decision making process, and medical care plan development were reviewed and approved by the faculty preceptor. The faculty preceptor is aware and concurs with the plan as stated in the body of this note and will attest to such by his/her cosignature. Makayla Carpenter MD Mar 23, 2020 11:06 Brandyn Menjivar DO, [facility] Mar 23, 2020 17:08
[2020-03-23 11:33] LABS: FOLATE 15.4 NG/ML (>5.4)
[2020-03-23 17:57] LABS: BLOOD UREA NITROGEN 16 MG/DL (7-18); CALCIUM LEVEL 8.7 MG/DL (8.8-10.2); CARBON DIOXIDE LEVEL 33 MEQ/L (21-32); CHLORIDE LEVEL 101 MEQ/L (98-107); CREATININE FOR GFR 0.81 MG/DL (0.55-1.30); GLOMERULAR FILTRATION RATE > 60.0 (>45); GLUCOSE, FASTING 113 MG/DL (70-100); MAGNESIUM LEVEL 1.6 MG/DL (1.8-2.4); POTASSIUM SERUM 3.4 MEQ/L (3.5-5.1); SODIUM LEVEL 141 MEQ/L (136-145)
[2020-03-23] MEDS ORDERED: POTASSIUM CHLORIDE 10 MEQ SR TABLET PO ONE (18:30)
[2020-03-23] MEDS: MAG SULF 1GM/100ML (MAG RUN) 1 GM in IV 1 EA IV SCH ×2 (18:38→20:09)
--- NOTE | 2020-03-23 18:38 | IPNPDOC ---
Subjective Date Seen The patient was seen on 03/23/20. Subjective Chief Complaint/HPI Mrs. Zimmerman is a 69 year old female with COPD, lung cancer s/p RU lobectomy, CKD stage 3, and chronic back pain here with toxic metabolic encephalopathy from acute on chronic hypercapnic respiratory failure and polypharmacy. This morning, she was more confused, but cooperative. Reports dyspnea, but denies fever/chills, abdominal pain, or dysuria. Constitutional: Denies: Chills, Fever Pulmonary: Reports: Dyspnea Gastrointestinal: Denies: Abdominal Pain Genitourinary: Denies: Dysuria Objective Physical Examination General Exam: Positive: Mild Distress Eye Exam: Negative: Sclera icteric ENT Exam: Positive: Atraumatic Neck Exam: Positive: Supple Chest Exam: Positive: Diminished Heart Exam: Positive: Tachycardic, Regular Rhythm Abdomen Exam: Positive: Normal bowel sounds, Soft, Other (obese) Extremity Exam: Positive: Edema Skin Exam: Positive: Nl turgor and temperature Psych Exam: Negative: Mental status NL Assessment /Plan Assessment Mrs. Zimmerman is a 69 year old female with COPD, lung cancer s/p RU lobectomy, CKD stage 3, and chronic back pain here with toxic metabolic encephalopathy from acute on chronic hypercapnic respiratory failure and polypharmacy. She was on percocet, gabapentin, and tizanidine normally and had taken a cold medication prior to the hypercapnic event. While here, she has required the BIPAP. When she became more alert, she became agitated and did not want to wear a bipap. She is most likely a chronic retainer with her BMI and COPD history but would still need the BIPAP at this time. ICU/Pulmonary following for BIPAP management, r ecommendations appreciated. Continue diuresis and BiPAP for acute hypoxic and hypercapnic respiratory failure. Plan/VTE VTE Prophylaxis Ordered?: Yes Plan 1. Toxic Metabolic Encephalopathy -Polypharmacy from opioid, muscle relaxant, gabapentin and newly added OTC "cold" medication -Acute on chronic hypercarbic respiratory failure -Holding above medications -On Bipap 2. Acute on chronic hypercarbic respiratory failure -BMI of 42, may have OHS -COPD -Requiring Bipap. ICU/Pulm following, recommendations appreciated 3. History of Post-operative wound infection with retained hardware -Back surgery over the summer which was complicated by post-op wound infection with Enterococcus faecalis -Has been following with Dr. Muse outpatient -Continue Augmentin -Small open ulcer on back, does not appear to be infected. No erythema, no pus. Continue wound care. 4. Diastolic CHF -Continue lasix 5. RLS -Continue Ropinirole 6. DVT ppx -Heparin VS, I&O, 24H, Fishbone Vital Signs/I&O Vital Signs Date Time Temp Pulse Resp B/P (MAP) Pulse Ox O2 Delivery O2 Flow Rate FiO2 03/23/20 13:00 NIPPV (BIPAP/CPAP) 25 03/23/20 12:00 97.6 143/71 (95) 2.0 03/23/20 10:00 110 17 92 I&O- Last 24 Hours up to 6 AM 03/23/20 06:00 Intake Total 480 ml Output Total 2005 ml Balance -1525 ml Laboratory Data 24H LABS Laboratory Tests 2 03/22/20 16:56: Blood Gas Bicarbonate Standard 26.5H, Arterial Blood pH 7.284L, Arterial Blood Partial Pressure CO2 64.9*H, Arterial Blood Partial Pressure O2 77.3, Arterial Blood Total CO2 32.1H, Arterial Blood HCO3 30.1H, Arterial Blood Base Excess 2.3H, Arterial Blood Oxygen Saturation 95.2 03/23/20 01:41: Blood Gas Bicarbonate Standard 26.2H, Arterial Blood pH 7.293L, Arterial Blood Partial Pressure CO2 62.1*H, Arterial Blood Partial Pressure O2 99.5, Arterial Blood Total CO2 31.3H, Arterial Blood HCO3 29.4H, Arterial Blood Base Excess 2.0, Arterial Blood Oxygen Saturation 97.8 03/23/20 05:00: Nucleated Red Blood Cells % (auto) 0.0, Anion Gap 5L, Glomerular Filtration Rate > 60.0, Calcium Level 8.7L, Magnesium Level 1.8, Troponin I 0.05 03/23/20 05:55: Blood Gas Bicarbonate Standard 28.9H, Arterial Blood pH 7.338L, Arterial Blood Partial Pressure CO2 60.5*H, Arterial Blood Partial Pressure O2 108.6H, Arterial Blood Total CO2 33.6H, Arterial Blood HCO3 31.8H, Arterial Blood Base Excess 4.8H, Arterial Blood Oxygen Saturation 98.6 03/23/20 11:19: Ammonia 19 CBC/BMP Laboratory Tests 03/23/20 05:00 Microbiology Microbiology 03/22/20 Blood Culture - Preliminary, Resulted No growth after 24 hours . All specim... 03/22/20 Blood Culture - Preliminary, Resulted No growth after 24 hours . All specim... 03/22/20 Respiratory Virus Panel (PCR) ([facility]IE) - Final, Complete 03/22/20 Urine Culture, Received Pending HOLGER REDDY DO Mar 23, 2020 15:40
[2020-03-23] MEDS: ACETAMINOPHEN TAB 650MG DOSE (2X325MG) PO PRN (20:10)
[2020-03-23] MEDS: LATANOPROST 0.005% OPHTH SOLN 2.5 ML OU SCH (20:10)
[2020-03-23] MEDS: ATORVASTATIN 20 MG TAB PO SCH (20:10)
[2020-03-23] MEDS ORDERED: EXCEDRIN MIGRAINE TABLET PO PRN (20:45)
[2020-03-23] MEDS ORDERED: SUMAtriptan SUCCINATE 25 MG TAB PO PRN (20:45)
[2020-03-23] MEDS ORDERED: PILL CUTTER 1 EACH XX PRN (20:45)
[2020-03-23] MEDS: tiZANidine 4 MG TAB PO SCH (21:07)
[2020-03-23] MEDS: GABAPENTIN 100 MG CAP PO SCH (21:07)
[2020-03-23] MEDS: LACTOBACILLUS ACIDOPHILUS CAP (BACID) PO SCH (21:07)
[2020-03-24] VITALS (11 sets, daily range): BP systolic 123–147; BP diastolic 57–85; O2SAT 99
[2020-03-24] MEDS: IPRATROPIUM 0.5MG/ALBUTEROL 2.5MG INH SOL UD 3ML (DUONEB) NEB SCH ×4 (02:00→19:28)
[2020-03-24 05:20] LABS: HEMATOCRIT 35.1 % (36.0-47.0); HEMOGLOBIN 10.3 g/dl (12.0-15.5); MEAN CORPUSCULAR HEMOGLOBIN 28.4 pg (27.0-33.0); MEAN CORPUSCULAR HGB CONC 29.3 g/dl (32.0-36.5); MEAN CORPUSCULAR VOLUME 96.7 fl (80.0-96.0); PLATELET COUNT, AUTOMATED 261 10^3/uL (150-450); RED BLOOD COUNT 3.63 10^6/uL (4.00-5.40); WHITE BLOOD COUNT 8.9 10^3/uL (4.0-10.0)
[2020-03-24 05:46] LABS: BLOOD UREA NITROGEN 13 MG/DL (7-18); CALCIUM LEVEL 9.3 MG/DL (8.8-10.2); CARBON DIOXIDE LEVEL 33 MEQ/L (21-32); CHLORIDE LEVEL 102 MEQ/L (98-107); CREATININE FOR GFR 0.66 MG/DL (0.55-1.30); GLOMERULAR FILTRATION RATE > 60.0 (>45); GLUCOSE, FASTING 86 MG/DL (70-100); MAGNESIUM LEVEL 2.1 MG/DL (1.8-2.4); SODIUM LEVEL 141 MEQ/L (136-145)
[2020-03-24 06:09] LABS: ABG BASE EXCESS 10.1 (-2.0-2.0); ABG HCO3 36.3 MEQ/L (22.0-26.0); ABG O2 SATURATION 96.4 % (95.0-99.0); ABG PARTIAL PRESSURE CO2 58.7 mmHg (35.0-45.0); ABG PARTIAL PRESSURE O2 79.3 mmHg (75.0-100.0); ABG STANDARD HCO3 33.8 MEQ/L (22.0-26.0); ABG TOTAL CO2 38.1 MEQ/L (23.0-31.0); ABG pH (ARTERIAL) 7.409 UNITS (7.350-7.450)
[2020-03-24] MEDS: ADVAIR HFA 230/21MCG INHALER INH SCH ×3 (08:19→19:28)
--- NOTE | 2020-03-24 08:21 | REP ---
INDICATION: comparison, acute resp failure. COMPARISON: Comparison radiograph March 22, 2020.. TECHNIQUE: Single upright AP view. FINDINGS: Holbrook fixation rods are seen in the lower thoracic and upper lumbar spine. Cervical spine fusion hardware is noted at the top of the imaging field of view. Monitor electrodes and oxygen delivery tubing or seen. Postthoracotomy changes are noted in the right hilar region as before. The heart is not enlarged. Lungs are well inflated. No infiltrate is seen. There is minimal linear platelike atelectasis in the left lateral pleural angle. Lung goff are otherwise clear. Pulmonary vasculature is not increased. IMPRESSION: Minimal linear platelike atelectasis left lateral pleural angle. Postthoracotomy changes on the right. Cervical spine and thoracolumbar spine fusion hardware. Otherwise no acute disease. <Electronically signed by Jos Rosas > 03/24/20 [id number]
[2020-03-24] MEDS: GABAPENTIN 100 MG CAP PO SCH ×3 (08:35→20:26)
[2020-03-24] MEDS: LACTOBACILLUS ACIDOPHILUS CAP (BACID) PO SCH ×2 (08:36→20:25)
[2020-03-24] MEDS: FUROSEMIDE 40 MG TAB PO SCH (08:36)
[2020-03-24] MEDS: FERROUS SULFATE 325MG TAB PO SCH ×2 (08:36→20:27)
[2020-03-24] MEDS: AUGMENTIN 875 MG TAB PO SCH ×2 (08:36→20:25)
[2020-03-24] MEDS: HEPARIN SOD (PORCINE) 5000UNITS/ML 1ML VIAL/SYRINGE SQ SCH ×2 (08:37→20:26)
[2020-03-24] MEDS: tiZANidine 4 MG TAB PO SCH ×2 (08:37→20:26)
[2020-03-24] MEDS: rOPINIRole 0.25 MG TAB(REQUIP) PO SCH ×2 (08:43→20:26)
[2020-03-24] MEDS: PANTOPRAZOLE 40MG TAB (PROTONIX) PO SCH (08:43)
[2020-03-24] MEDS: OLANZapine 5 MG TAB PO SCH ×2 (08:43→20:26)
--- NOTE | 2020-03-24 08:54 | ECGEPIP ---
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
--- NOTE | 2020-03-24 14:17 | IPNPDOC ---
Text Note Date of Service The patient was seen on 03/24/20. NOTE S: The patient reports that she is feeling much better today , with no breathing issues on the nasal cannula(3L oxygen ) and was glad that she could be off BiPap for the day. Last evening on a trial of Nasal cannula of 3L oxygen, she destuarated to 86 % so she was put back on the Bi Pap and was kept on it for the whole night. She has had no acute overnight events as per the nurse. . She was enjoying her breakfast and eating without any difficulty this morning. She hopes she could be discharged soon. O: PHYSICAL EXAMINATION: GENERAL:The patient as of today morning, was sitting comfortably in her bed , breathing without any discomfort out of a nasal cannula at 3 L of Oxygen, saturating at 96 %. She could move a little better today, looks more oriented to time, place and person than yesterday but does not remember how she ended up in the hospital. HEENT: Atraumatic, Normocephalic, mucous membranes moist, no scleral icterus, pallor +1. CVS: Rate and rhythm of S1,S2 normal. No heart murmurs heard. RESPIRATORY EXAM : limited: Due to patient refusing to move for a full lung exam. Patient has diminished bilateral breath sounds more towards the left than right . No crackles, rales or wheezing appreciated as heard on the chest from the front and sides. ABDOMINAL :Obese abdomen, nondistended, non tender in all the 4 quadrants, Tympanic on percussion, normal bowel sounds . MUSCULOSKELETAL: Good range of motion in the four extremities . Recent back surgery done. Spine motion might be restricted- Could not assess. NEUROLOGICAL: Good motor strength as per the previous notes. The patient was ambulating at home with assistance of a wheelchair due to pain. Sensations intact. SKIN: Patient's skin looks warm and well perfused with a normal capillary refi ll . No clubbing or cyanosis . The patient has an infected wound at the site of the back surgery infected with Enteroccocus fecalis treated with Amoxy Clav . Could not see the wound. It was covered in dressing. ASSESSMENT & PLAN: Mrs. Zimmerman is a 69 year old female with COPD, lung cancer s/p RU lobectomy, CKD stage 3, and chronic back pain here with toxic metabolic encephalopathy from acute on chronic hypercapnic respiratory failure and polypharmacy. She was on Percocet, gabapentin, and tizanidine normally and had taken a cold medication prior to the hypercapnic event. She was found to have an ABG of pH 7.15, PCO2 of 95.8 at presentation. While here, she has required the BIPAP. When she became more alert, she became agitated and did not want to wear a Bi-pap. She is most likely a chronic retainer with her BMI and COPD history but would need a continuos C -Pap for nightly use due to her underlying diagnosis of sleep apnea and obesity hypoventilation syndrome. Pt has been off Bi-Pap as of this morning, saturating well on nasal cannularunning at 3 L and saturating 93 %. >Acute on Chronic respiratory failure secondary to polypharmacy in the setting of CKD stage 3: -Pt is fully oriented to time, place and person, still sleepy and keeps yawning while I talked to her. -Mind altering and sedative medications are on hold.(Gabapentin/Percocet and Tizanidine)- Pain medication was given once last night due to reported pain and inability to sleep. -Pt has been off Bi-Pap since morning. -Our plan is to continue her on C-Pap at home -Her ABG's are improving . -Continuos monitoring of vitals. -Chest X-ray looks more or less the same from yesterday. -Our plan for her today is to leave her on a nasal cannula running on 3 L of O2 , and wean her off based off her saturation levels. Also for night time , we are going to give her a trial of C-pap and reassess in the morning tomorrow. -Her Hypercarbia is more likely to get worse if she is not compliant with her Cpap use because of her restricted breathing due to her obese body habitus and deconditioning. Pt was talked to about the importance of using a Cpap, she verbalizes understanding. -Also, the patient is given an inspiratory spirometer to use for suspected Post operative atelectasis >Metabolic encephalopathy secondary to poly-pharmacy: -Hold medications causing respiratory depression and Hypercarbia. -The patient's ABG is improving . Her CO2 is 58.7 today .Other labs this morning are normal -Repeat ABG ordered . -Serum ammonia levels ordered yesterday have returned back to normal. -Continue monitoring vitals Q1h -Continue to Oxygenate on 3 L nasal cannula. -Our plan is to switch her to a C-pap machine for tonight and during naps so that we can assess her baseline and continue her on the same after discharge. -She is highly likely to get Hypercarbic again if she does not use C-Pap at home during night. Pt was talked to about the importance of using a Cpap, she verbalizes understanding. >Iron deficiency anemia: -Today her hemoglobin is 10.6. -She will be continued on her Iron supplementation - She is advised to undergo a colonoscopy /EGD as an outpatient procedure to find the cause of her anemia. >History of a post operative wound infection on the back at the operative site: -She has been diagnosed with an Enterococcus fecalis wound infection at her operative site on her lower back for which she is already on Augmentin . -Continue Augmentin treatment here in the hospital. -Regular monitoring of vitals. -Regular change in positioning to lower the risk of pressure sores and ulcers. -the patient is afebrile. >Diastolic Congestive heart failure : -Chest Xray from this morning looks normal. -Her lung sounds don't suggest any fluid in the lungs. -Stable on Lasix -Continue Lasix. >COPD: -Continue Home inhalers. -Duo nebs PRN. -Added an incentive spirometer to take care of underlying atelectasis. >Restless leg syndrome: -Continue Requip. >DVT prophylaxis: -Heparin SQ. GIT prophylaxis: Protonix 40 mg daily. DISPOSITION: Pt is still deconditioned and is not using her respiratory muscles to take a deep full breath, highly likely she will have hypercarbia again if she does not regularly use a C-Pap at home. We are still optimizing her respiratory function. will watch and reassess again in the morning. Dr. Menjivar: I saw the patient and participated in the lora portions of the evaluation and management. I agree with the substance of the note and have discussed this with the primary team. She will need outpatient follow up to reestablish treatment of her CHINTAN. VS,Fishbone, I+O VS, Fishbone, I+O Laboratory Tests 03/23/20 17:17 03/24/20 05:05 Vital Signs Date Time Temp Pulse Resp B/P (MAP) Pulse Ox O2 Delivery O2 Flow Rate FiO2 03/24/20 08:18 25 03/24/20 08:18 99 BIPAP/CPAP 03/24/20 06:00 92 17 03/24/20 04:00 98.1 133/63 (86) 03/24/20 03:00 3.0 I&O- Last 24 Hours up to 6 AM 03/24/20 05:59 Intake Total 1380 ml Output Total 1740 ml Balance -360 ml GME ATTESTATION GME ATTESTATION My faculty preceptor for this patient encounter was physically present during the encounter and was fully available. All aspects of the patient interview, examination, medical decision making process, and medical care plan development were reviewed and approved by the faculty preceptor. The faculty preceptor is aware and concurs with the plan as stated in the body of this note and will attest to such by his/her cosignature. Makayla Carpenter MD Mar 24, 2020 11:13 Brandyn Menjivar DO, [facility] Mar 25, 2020 18:01
[2020-03-24] MEDS: ACETAMINOPHEN TAB 650MG DOSE (2X325MG) PO PRN (14:31)
--- NOTE | 2020-03-24 15:59 | IPNPDOC ---
Text Note Date of Service The patient was seen on 03/24/20. NOTE Subjective: No any acute events overnight. Patient stated that her breathing improved Objective: GENERAL APPEARANCE: NAD HEENT: no scleral icterus, no JVD, EOMI CARDIOVASCULAR: S1S2 LUNGS: Diminished lung sounds bilaterally ABDOMEN: soft & not tender w palpitation MUSCULOSKELETAL: no cyanosis, no swelling INTEGUMENT: no generalized palor NEUROLOGICAL: cranial nerve function from 2-12 intact intact, follows commands, speech not dysarthric Assessment and plan Mrs. Zimmerman is a 69 year old female with COPD, lung cancer s/p RU lobectomy, CKD stage 3, and chronic back pain here with toxic metabolic encephalopathy from acute on chronic hypercapnic respiratory failure and polypharmacy. She was on Percocet, gabapentin, and tizanidine normally and had taken a cold medication prior to the hypercapnic event. While here, she has required the BIPAP. When she became more alert, she became agitated and did not want to wear a bipap. She is most likely a chronic retainer with her BMI and COPD history but would still need the BIPAP at this time. ICU/Pulmonary following for BIPAP management Metabolic encephalopathy Most likely secondary to polypharmacy Resolved Acute on chronic hypercarbic respiratory failure -BMI of 42, may have OHS superimposed with COPD -Dr. Airza recommended CPAP overnight History of Post-operative wound infection with retained hardware -Back surgery over the summer which was complicated by post-op wound infection with Enterococcus faecalis -Has been following with Dr. Muse outpatient -Continue Augmentin -Small open ulcer on back, does not appear to be infected. No erythema, no pus. Continue wound care. Diastolic CHF -Continue lasix RLS -Continue Ropinirole Normocytic anemia Patient will need EGD and colonoscopy in the outpatient settings Due to low iron I increased the dose of iron supplementation Stool for occult blood DVT ppx -Heparin VS,Fishbone, I+O VS, Fishbone, I+O Laboratory Tests 03/23/20 17:17 03/24/20 05:05 Vital Signs Date Time Temp Pulse Resp B/P (MAP) Pulse Ox O2 Delivery O2 Flow Rate FiO2 03/24/20 12:00 2.0 03/24/20 12:00 98.6 98 15 124/57 (79) 93 Nasal Cannula 03/24/20 08:18 25 I&O- Last 24 Hours up to 6 AM 03/24/20 06:00 Intake Total 1380 ml Output Total 1780 ml Balance -400 ml JAMEL TIWARI DO Mar 24, 2020 15:59
[2020-03-24] MEDS: ATORVASTATIN 20 MG TAB PO SCH (20:26)
[2020-03-24] MEDS: LATANOPROST 0.005% OPHTH SOLN 2.5 ML OU SCH (20:30)
[2020-03-25] MEDS: IPRATROPIUM 0.5MG/ALBUTEROL 2.5MG INH SOL UD 3ML (DUONEB) NEB SCH ×2 (02:00→08:00)
[2020-03-25 06:00] VITALS: BP 147/85
[2020-03-25] MEDS: ADVAIR HFA 230/21MCG INHALER INH SCH (07:30)
[2020-03-25] MEDS: HEPARIN SOD (PORCINE) 5000UNITS/ML 1ML VIAL/SYRINGE SQ SCH (08:29)
[2020-03-25] MEDS: LACTOBACILLUS ACIDOPHILUS CAP (BACID) PO SCH (08:29)
[2020-03-25] MEDS: OLANZapine 5 MG TAB PO SCH (08:30)
[2020-03-25] MEDS: AUGMENTIN 875 MG TAB PO SCH (08:30)
[2020-03-25] MEDS: PANTOPRAZOLE 40MG TAB (PROTONIX) PO SCH (08:30)
[2020-03-25] MEDS: tiZANidine 4 MG TAB PO SCH (08:31)
[2020-03-25] MEDS: GABAPENTIN 100 MG CAP PO SCH (08:31)
[2020-03-25] MEDS: FERROUS SULFATE 325MG TAB PO SCH (08:31)
[2020-03-25] MEDS: rOPINIRole 0.25 MG TAB(REQUIP) PO SCH (08:31)
[2020-03-25] MEDS: FUROSEMIDE 40 MG TAB PO SCH (08:31)
[2020-03-25] MEDS ORDERED: GABA-1171 PO (09:36)
[2020-03-25] MEDS ORDERED: FERR325T18 PO (09:40)
--- NOTE | 2020-03-25 12:11 | DS.PDOC ---
Discharge Summary General Date of Admission Mar 22, 2020 at 04:20 Date of Discharge 03/25/20 Discharge Summary PROCEDURES PERFORMED DURING STAY: [None]. ADMITTING DIAGNOSES: Metabolic encephalopathy Acute on chronic hypercarbic respiratory failure Diastolic CHF History of Post-operative wound infection with retained hardware RLS Normocytic anemia DISCHARGE DIAGNOSES: Metabolic encephalopathy Acute on chronic hypercarbic respiratory failure Diastolic CHF History of Post-operative wound infection with retained hardware RLS Normocytic anemia COMPLICATIONS/CHIEF COMPLAINT: Acute Resp Failure. HISTORY OF PRESENT ILLNESS:Mrs. Zimmerman is a 69 year old female with COPD, lung cancer s/p RU lobectomy, CKD stage 3, and chronic back pain here with toxic metabolic encephalopathy from acute on chronic hypercapnic respiratory failure and polypharmacy. She was on Percocet, gabapentin, and tizanidine normally and had taken a cold medication prior to the hypercapnic event. While here, she has required the BIPAP. When she became more alert, she became agitated and did not want to wear a bipap. She is most likely a chronic retainer with her BMI and COPD history but would still need the BIPAP at this time. ICU/Pulmonary following for BIPAP management HOSPITAL COURSE: During hospital stay following issue addressed Metabolic encephalopathy Most likely secondary to polypharmacy Resolved Acute on chronic hypercarbic respiratory failure -BMI of 42, may have OHS superimposed with COPD -Dr. Ariza recommended CPAP overnight History of Post-operative wound infection with retained hardware -Back surgery over the summer which was complicated by post-op wound infection with Enterococcus faecalis -Has been following with Dr. Muse outpatient -Continue Augmentin -Small open ulcer on back, does not appear to be infected. No erythema, no pus. Continue wound care. Diastolic CHF -Continue lasix RLS -Continue Ropinirole Normocytic anemia Patient will need EGD and colonoscopy in the outpatient settings Due to low iron I increased the dose of iron supplementation Stool for occult blood positive DISCHARGE MEDICATIONS: Please see below. ALLERGIES: Please see below. PHYSICAL EXAMINATION ON DISCHARGE: VITAL SIGNS: Please see below. GENERAL APPEARANCE: NAD HEENT: no scleral icterus, no JVD, EOMI CARDIOVASCULAR: S1S2 LUNGS: Diminished lung sounds bilaterally ABDOMEN: soft & not tender w palpitation MUSCULOSKELETAL: no cyanosis, no swelling INTEGUMENT: no generalized palor NEUROLOGICAL: cranial nerve function from 2-12 intact intact, follows commands, speech not dysarthric LABORATORY DATA: Please see below. IMAGING: INDICATION: comparison, acute resp failure. COMPARISON: Comparison radiograph March 22, 2020.. TECHNIQUE: Single upright AP view. FINDINGS: Holbrook fixation rods are seen in the lower thoracic and upper lumbar spine. Cervical spine fusion hardware is noted at the top of the imaging field of view. Monitor electrodes and oxygen delivery tubing or seen. Postthoracotomy changes are noted in the right hilar region as before. The heart is not enlarged. Lungs are well inflated. No infiltrate is seen. There is minimal linear platelike atelectasis in the left lateral pleural angle. Lung goff are otherwise clear. Pulmonary vasculature is not increased. IMPRESSION: Minimal linear platelike atelectasis left lateral pleural angle. Postthoracotomy changes on the right. Cervical spine and thoracolumbar spine fusion hardware. Otherwise no acute disease. PROGNOSIS: Fair ACTIVITY: [As tolerated]. 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 TIME SPENT ON DISCHARGE: Greater than 40 minutes. Vital Signs/I&Os Vital Signs Date Time Temp Pulse Resp B/P (MAP) Pulse Ox O2 Delivery O2 Flow Rate FiO2 03/25/20 09:00 0.0 03/25/20 06:00 98.9 107 16 147/85 (105) 93 Nasal Cannula 03/24/20 08:18 25 I&O- Last 24 Hours up to 6 AM 03/25/20 06:00 Intake Total 965 ml Output Total 2125 ml Balance -1160 ml Microbiology Microbiology 03/24/20 Stool Occult Blood (STACIE) - Final, Complete 03/22/20 Blood Culture - Preliminary, Resulted No Growth after 72 hours. All specime... 03/22/20 Blood Culture - Preliminary, Resulted No Growth after 72 hours. All specime... 03/22/20 Respiratory Virus Panel (PCR) (STACIE) - Final, Complete 03/22/20 Urine Culture - Final, Complete Discharge Medications Scheduled Amoxicillin/Potassium Clav (Amox-Clav 875-125 mg Tablet) 1 Each Tablet, 1 TAB PO BID, (Reported) Atorvastatin Calcium (Atorvastatin Calcium) 20 Mg Tablet, 20 MG PO QHS, (Reported) Ferrous Sulfate (Ferrous Sulfate) 325 Mg Tablet, 325 MG PO BID Fluticasone Propion/Salmeterol (Advair Hfa 230-21 Mcg Inhaler) 12 Gm Hfa.aer.ad, 2 PUFF INH BID, (Reported) Furosemide (Furosemide) 40 Mg Tablet, 40 MG PO DAILY, (Reported) Gabapentin (Gabapentin) 100 Mg Capsule, 100 MG PO TID L.acidoph/L.bulg/B.bif/S.therm (Hanna-Bid Caplet) 1 Each Tablet, 3 CAP PO BID, (Reported) Lactobacillus Acidophilus (Acidophilus) 1 Each Tablet, 1 TAB PO BID, (Reported) Latanoprost (Xalatan) 0.005% 2.5ML Drops, 1 DROP OU QHS, (Reported) Olanzapine (Olanzapine) 5 Mg Tablet, 5 MG PO BID, (Reported) Pantoprazole Sodium (Pantoprazole Sodium) 40 Mg Tablet.dr, 40 MG PO DAILY, (Reported) Potassium Chloride (Potassium Chloride) 20 Meq Tab.er.prt, 40 MEQ PO QAM, (Reported) Ropinirole HCl (Ropinirole HCl) 0.25 Mg Tablet, 0.5 MG PO QAM, (Reported) Ropinirole HCl (Ropinirole HCl) 0.25 Mg Tablet, 0.25 MG PO QPM, (Reported) Tizanidine HCl (Tizanidine HCl) 4 Mg Tablet, 4 MG PO QID, (Reported) Scheduled PRN Albuterol Sulfate (Ventolin Hfa) 108 Mcg/Act Aer, 2 PUFFS INH Q4H PRN for SHORTNESS OF BREATH, (Reported) Aspirin/Acetaminophen/Caffeine (Excedrin Migraine Caplet) 1 Each Tablet, 2 TAB- CAP PO DAILY PRN for HEADACHE, (Reported) Oxycodone HCl/Acetaminophen (Oxycodone-Acetaminophen 10-325) 1 Each Tablet, 1 TAB PO Q4H PRN for PAIN, (Reported) Sumatriptan Succinate (Sumatriptan Succinate) 100 Mg Tablet, 1 TAB PO ASDIRECTED PRN for MIGRAINE, (Reported) may repeat in 2 hours; do not exceed 200 mg in 24 hours Allergies Coded Allergies: Benzodiazepines (Verified Adverse Reaction, Intermediate, DELERIUM, 11/25/19) fentanyl (Verified Adverse Reaction, Mild, LOOPY, 11/20/19) morphine (Verified Adverse Reaction, Mild, SEDATION; profound, 11/20/19) pregabalin (Verified Adverse Reaction, Mild, FEET SWELLING, 11/25/19) JAMEL TIWARI DO Mar 25, 2020 12:11
== END 2020-03-25 12:14 | disposition home or self-care (01) | DRG 91 ==
LOC: M ED 02:24 → M ED INP 04:20 → M ICU 05:27 → M MSPAV 03-24 18:04
PROVIDERS: ADMIT Internal Medicine; ATTEND Internal Medicine
DX: G92 Toxic encephalopathy (principal); J96.22 Acute and chronic respiratory failure with hypercapnia; E72.20 Disorder of urea cycle metabolism, unspecified; I50.32 Chronic diastolic (congestive) heart failure; I24.8 Other forms of acute ischemic heart disease; E66.2 Morbid (severe) obesity with alveolar hypoventilation; Z68.41 Body mass index [BMI] 40.0-44.9, adult; N18.31 Chronic kidney disease, stage 3a; T40.605A Adverse effect of unspecified narcotics, initial encounter; G25.81 Restless legs syndrome; D50.9 Iron deficiency anemia, unspecified; J44.9 Chronic obstructive pulmonary disease, unspecified; Z85.118 Personal history of other malignant neoplasm of bronchus and lung; Z79.899 Other long term (current) drug therapy; Z79.82 Long term (current) use of aspirin; Z88.5 Allergy status to narcotic agent; Z88.8 Allergy status to other drugs, medicaments and biological substances; K21.9 Gastro-esophageal reflux disease without esophagitis; F17.200 Nicotine dependence, unspecified, uncomplicated; I27.20 Pulmonary hypertension, unspecified

== ENCOUNTER 2020-06-13 20:03 | Inpatient (IN) | payer MEDICARE, BC, OTHER ==
[~2020-06-13] VITALS: Ht 165.1 cm; Wt 107.7 kg
[~2020-06-13 20:03] MED LIST changes: +EXCETAB33 PO; +GABA-1171 PO; +HYDR-3490 PO; -HYDR25TAB PO; -LISI-542 PO; +LISI-898 PO; +METH-1164 PO; -METH1TAB40 PO; +OLAN5TAB PO; +RISATAB3 PO; +TIZA4TAB4 PO
[2020-06-13] MEDS ORDERED: methylPREDNISolone 125MG 2ML VIAL IV ONE (20:30)
[2020-06-13] MEDS ORDERED: NS 1,000 ML IV ONE (20:30)
[2020-06-13] MEDS ORDERED: IPRATROPIUM 0.5MG/ALBUTEROL 2.5MG INH SOL UD 3ML (DUONEB) NEB PRN (20:30)
[2020-06-13 20:43] LABS: BASO # 0.1 10^3/uL (0.0-0.2); BASO % 0.5 % (0.0-1.0); EOS # 0.2 10^3/uL (0.0-0.5); EOS % 1.4 % (0.0-3.0); HEMATOCRIT 36.7 % (36.0-47.0); HEMOGLOBIN 10.6 g/dl (12.0-15.5); LYMPH # 1.1 10^3/uL (1.5-5.0); LYMPH % 10.3 % (24.0-44.0); MEAN CORPUSCULAR HEMOGLOBIN 28.6 pg (27.0-33.0); MEAN CORPUSCULAR HGB CONC 28.9 g/dl (32.0-36.5); MEAN CORPUSCULAR VOLUME 99.2 fl (80.0-96.0); MONO # 0.7 10^3/uL (0.0-0.8); MONO % 6.3 % (0.0-5.0); NEUTROPHILS # 8.9 10^3/uL (1.5-8.5); NEUTROPHILS % 81.1 % (36.0-66.0); PLATELET COUNT, AUTOMATED 249 10^3/uL (150-450)
[2020-06-13 20:47] LABS: INR 0.92; PROTHROMBIN TIME 12.5 SECONDS (12.5-14.3)
[2020-06-13 20:49] LABS: D-DIMER QUANT 2155.38 ng/ml (<500); VENOUS BASE EXCESS 4.1 (-2.0-2.0); VENOUS HCO3 33.9 MEQ/L (23.0-27.0); VENOUS O2 SATURATION 99.2 % (60.0-80.0); VENOUS PARTIAL PRESSURE CO2 82.6 mmHg (38.0-50.0); VENOUS PARTIAL PRESSURE O2 165.9 mmHg (30.0-50.0); VENOUS PH 7.231 UNITS (7.330-7.430); VENOUS STANDARD HCO3 28.2 MEQ/L; VENOUS TOTAL CO2 36.4 MEQ/L (24.0-28.0)
[2020-06-13 20:52] LABS: ALBUMIN 3.6 GM/DL (3.2-5.2); ALT/SGPT 18 U/L (12-78); BILIRUBIN,DIRECT < 0.1 MG/DL (0.0-0.2); BILIRUBIN,TOTAL 0.2 MG/DL (0.2-1.0); BLOOD UREA NITROGEN 7 MG/DL (7-18); CARBON DIOXIDE LEVEL 36 MEQ/L (21-32); CHLORIDE LEVEL 99 MEQ/L (98-107); CK-MB VALUE MASS < 1.0 NG/ML (<3.6); CPK CREATINE PHOSPHOKINASE 49 U/L (26-192); CREATININE FOR GFR 0.82 MG/DL (0.55-1.30); GLOMERULAR FILTRATION RATE > 60.0 (>45); GLUCOSE, FASTING 103 MG/DL (70-100); MB/CK RELATIVE INDEX 2.04 (< OR =4); NT-PRO BNP 456 PG/ML (<125); SODIUM LEVEL 138 MEQ/L (136-145); TOTAL PROTEIN 7.1 GM/DL (6.4-8.2); TROPONIN I < 0.02 NG/ML (< 0.10)
[2020-06-13] MEDS: GABAPENTIN 400MG CAP PO SCH (21:00)
[2020-06-13] MEDS: rOPINIRole 0.25 MG TAB(REQUIP) PO SCH (21:00)
[2020-06-13] MEDS ORDERED: ACETAMINOPHEN 500 MG TAB PO ONE (21:00)
[2020-06-13] MEDS: LATANOPROST 0.005% OPHTH SOLN 2.5 ML OU SCH (21:00)
[2020-06-13] MEDS: OLANZapine 5 MG TAB PO SCH (21:00)
[2020-06-13] MEDS: ATORVASTATIN 20 MG TAB PO SCH (21:00)
[2020-06-13] MEDS ORDERED: ISOVUE-370 76% 100ML VIAL As Ordered ONE (21:13)
[2020-06-13] MEDS ORDERED: COMBIVENT RESPIMAT 100-20MCG INHALER 4GM INH SCH (21:15)
--- NOTE | 2020-06-13 21:30 | REPVR ---
PROCEDURE INFORMATION: Exam: XR Chest, 1 View Exam date and time: 06/13/2020 9:03 PM Age: 69 years old Clinical indication: Cough; Additional info: Dyspnea TECHNIQUE: Imaging protocol: XR of the chest Views: 1 view. COMPARISON: [place] Chest, 1 view 03/24/2020 7:50 AM FINDINGS: Lungs: There are linear densities in the left lung base, which may represent scarring or atelectasis. No lung consolidation or pulmonary edema is noted. There are surgical clips in the right hilar region. Pleural space: Unremarkable. No pleural effusion or pneumothorax is identified. Heart/Mediastinum: No cardiomegaly is noted. Bones/joints: Postoperative changes are noted in the cervical spine and thoracic or lumbar spine, which are not fully evaluated in this study. IMPRESSION: No radiographic evidence for an acute cardiopulmonary process. Electronically signed by: Oscar Rollins On 06/13/2020 21:29:57 PM
--- NOTE | 2020-06-13 21:57 | REPVR ---
PROCEDURE INFORMATION: Exam: CT Angiography Chest With Contrast Exam date and time: 06/13/2020 9:23 PM Age: 69 years old Clinical indication: Elevated d-dimer; Shortness of breath TECHNIQUE: Imaging protocol: Computed tomographic angiography of the chest with intravenous contrast. 3D rendering (Not supervised by radiologist): MIP and/or 3D reconstructed images were created by the technologist. Radiation optimization: All CT scans at this facility use at least one of these dose optimization techniques: automated exposure control; mA and/or kV adjustment per patient size (includes targeted exams where dose is matched to clinical indication); or iterative reconstruction. Contrast material: ISOVUE 370; Contrast volume: 75 ml; Contrast route: INTRAVENOUS (IV); COMPARISON: 1. CT ANGIO CHEST 05/02/2017 2:[address] Chest without contrast 01/09/2019 3:55:33 PM FINDINGS: Pulmonary arteries: No pulmonary embolism. Aorta: The thoracic aorta is intact and patent. There is no thoracic aortic aneurysm, pseudoaneurysm, penetrating atherosclerotic ulcer, intramural hematoma, or dissection. There are mild to moderate atherosclerotic calcifications. Great vessels off aortic arch: The brachiocephalic artery, imaged proximal portions of the common carotid arteries, imaged proximal portions of the vertebral arteries, and subclavian arteries are intact. No stenosis or occlusion of these vessels is noted. Trachea: Normal. Bronchial tree: Normal. Lungs: Postoperative changes are noted from a right upper lobectomy. There is atelectasis in the right middle lobe, lingula, and both lower lobes. No lung consolidation, mass, or emphysematous changes are noted. Pleural space: Unremarkable. No pneumothorax. No pleural effusion. Heart: No cardiomegaly or pericardial effusion. The ratio of the diameter of the right ventricle to the diameter of the left ventricle measures less than 1, which is within normal limits and there is no CT evidence for a right ventricular strain. There are coronary artery calcifications. Mediastinal space: There are surgical clips in the right hilar region. No mediastinal mass, fluid collection, or pneumomediastinum is noted. Lymph nodes: No enlarged lymph nodes. Liver: Unremarkable. No liver lesion is identified. The contour of the liver is smooth. No hepatomegaly is noted. Gallbladder and bile ducts: There has been a cholecystectomy. There is no fluid collection in the gallbladder fossa. No dilation of the bile ducts is noted. No calcified stones are seen in the common bile duct. Spleen: The spleen is heterogeneous in appearance, which is likely secondary to the arterial timing of the contrast bolus. No splenomegaly. Adrenals: Normal. No adrenal mass is noted. Bones/joints: There is a severe anterior wedge compression fracture of T9 that has developed since the prior CT chest on 01/09/2019, and there is a visible radiolucent fracture line along the inferior endplate and increased sclerosis in the vertebral body. No retropulsion of the cortex is noted. Postoperative changes are noted from an anterior cervical discectomy and interbody fusion in the lower cervical spine at the C6-C7 level, which was not fully imaged. Bilateral vertical posterior rods are noted extending from the T9 level to the L1 level and there are bilateral transpedicular screws at the T10, T11, and L1 levels, and the hardware is intact and appropriately positioned, without evidence for loosening. There has been a T12 corpectomy and laminectomy and a corpectomy device is in place. There has been a resection of the bilateral posteromedial 12th ribs. There are old healed fracture deformities involving the right anterior 2nd, 3rd, 4th, and 5th ribs, right posteromedial 11th rib, and left posterolateral 7th rib. Soft tissues: There is a small amount of fluid in the soft tissues posteriorly along the midline of the thoracolumbar region with surrounding scar tissue, which may represent a postoperative seroma. IMPRESSION: 1. No pulmonary embolism. 2. Severe anterior wedge compression fracture of T9 that has developed since the prior CT chest on 01/09/2019. Electronically signed by: Oscar Rollins On 06/13/2020 21:57:16 PM
[2020-06-13] MEDS ORDERED: FERR1TAB8 PO (23:23)
[2020-06-13] MEDS ORDERED: GABA-845 PO (23:23)
[2020-06-13] MEDS ORDERED: MED REC COMMENT (23:27)
--- NOTE | 2020-06-13 23:38 | HPEPDOC ---
General Date of Admission Date of Service: Jun 13, 2020 Primary Care Physician: Sunil Gamboa Attending Physician: Luciano Ramos MD Chief Complaint The patient is a 69-year-old female admitted with a reason for visit of SOB. Source: Patient History of Present Illness Ms. Zimmerman is a patient with long history of previous COPD exacerbations. Unfortunately she is having another one. About 3-4 days ago she noticed i ncreased dyspnea. A day after that she started coughing up more green phlegm then was her typical pattern. Over the next couple days her symptoms have become progressively worse. As she recognized this pattern as a COPD flare she came to the emergency department for further evaluation and treatment. Home Medications Scheduled Amoxicillin/Potassium Clav (Amox-Clav 875-125 mg Tablet) 1 Each Tablet, 1 TAB PO BID, (Reported) Atorvastatin Calcium (Atorvastatin Calcium) 20 Mg Tablet, 20 MG PO QHS, (Reported) Ferrous Sulfate (Ferrous Sulfate) 325 Mg Tablet, 325 MG PO BID, (Reported) Fluticasone Propion/Salmeterol (Advair Hfa 230-21 Mcg Inhaler) 12 Gm Hfa.aer.ad, 2 PUFF INH BID, (Reported) Furosemide (Furosemide) 40 Mg Tablet, 40 MG PO DAILY, (Reported) Gabapentin (Gabapentin) 400 Mg Capsule, 400 MG PO TID, (Reported) Lactobacillus Acidophilus (Acidophilus) 1 Each Tablet, 1 TAB PO BID, (Reported) Latanoprost (Xalatan) 0.005% 2.5ML Drops, 1 DROP OU QHS, (Reported) Olanzapine (Olanzapine) 5 Mg Tablet, 5 MG PO BID, (Reported) Pantoprazole Sodium (Pantoprazole Sodium) 40 Mg Tablet.dr, 40 MG PO DAILY, (Reported) Potassium Chloride (Potassium Chloride) 20 Meq Tab.er.prt, 40 MEQ PO QAM, (Reported) Ropinirole HCl (Ropinirole HCl) 0.25 Mg Tablet, 0.5 MG PO QAM, (Reported) Ropinirole HCl (Ropinirole HCl) 0.25 Mg Tablet, 0.25 MG PO QPM, (Reported) Tizanidine HCl (Tizanidine HCl) 4 Mg Tablet, 4 MG PO QID, (Reported) Scheduled PRN Albuterol Sulfate (Ventolin Hfa) 108 Mcg/Act Aer, 2 PUFFS INH Q4H PRN for SHORTNESS OF BREATH, (Reported) Aspirin/Acetaminophen/Caffeine (Excedrin Migraine Caplet) 1 Each Tablet, 2 TAB- CAP PO DAILY PRN for HEADACHE, (Reported) Oxycodone HCl/Acetaminophen (Oxycodone-Acetaminophen 10-325) 1 Each Tablet, 1 TAB PO Q4H PRN for PAIN, (Reported) Sumatriptan Succinate (Sumatriptan Succinate) 100 Mg Tablet, 1 TAB PO ASDIRECTED PRN for MIGRAINE, (Reported) may repeat in 2 hours; do not exceed 200 mg in 24 hours Miscellaneous Medications [Med Rec Comment] , (Reported) UNABLE TO VERIFY EITH PATIENT. SPOKE WITH TO VERFY LAST DOSES AND USED LIST FROM LAST VISIT. STATES NOTHING HAS CHANGED Allergies Coded Allergies: Benzodiazepines (Verified Adverse Reaction, Intermediate, DELERIUM, 11/25/19) fentanyl (Verified Adverse Reaction, Mild, LOOPY, 11/20/19) morphine (Verified Adverse Reaction, Mild, SEDATION; profound, 11/20/19) pregabalin (Verified Adverse Reaction, Mild, FEET SWELLING, 11/25/19) Past Medical History Medical History 1. COPD 2. History of lung cancer s/p right upper lobectomy 3. Chronic Kidney Disease Stage 3a 4. GERD 5. Iron Deficiency Anemia 6. Restless Leg Syndrome 7. Chronic Back Pain 8. History T9-L2 fusion complicated by post-operative infection Surgical History 1. T9-L2 Fusion 2. Cholecystectomy 3. Multiple back and neck surgeries 4. Right upper lobectomy Family History Her father in his 70s of Parkinson, her mother in her 80s of a "heart issues" Social History * Smoker: former Smoker (quit in 2009, prior to that she had accrued and [id number] history) A-FIB/CHADSVASC A-FIB History Current/History of A-Fib/PAF?: No Review of Systems Constitutional: Reports: Malaise, Fatigue; Denies: Chills, Fever ENT: Reports: Other Symptoms (sore mouth); Denies: Head Aches, Dysphagia Pulmonary: Reports: Dyspnea, Cough Cardiovascular: Reports: Edema (slight in her right leg); Denies: Chest Pain, Palpitations Gastrointestinal: Denies: Nausea, Vomiting, Abdominal Pain, Diarrhea, Constipation Genitourinary: Denies: Dysuria, Frequency Neurological: Denies: Numbness, Incoordination Psych: Reports: Mood Normal; Denies: Memory Issues Physical Examination General Exam: Positive: Alert, Cooperative (resting comfortably in her ER stretcher when I entered the room), No Acute Distress Eye Exam: Positive: PERRLA, Conjunctiva & lids normal; Negative: Sclera icteric ENT Exam: Positive: Mucous membr. moist/pink, Tympanic Membranes Normal, Other ENT (there are scattered red papules noted on her palate); Negative: Pharyngeal Edema Neck Exam: Positive: Supple; Negative: Lymphadenopathy Chest Exam: Positive: Wheezing (both inspiratory and expiratory), Diminished Heart Exam: Positive: Tachycardic, Regular Rhythm, Normal S1, Normal S2, Murmurs (there is a 3/6 mid systolic crescendo-decrescendo murmur noticed loudest at the right lower sternal border) Abdomen Exam: Positive: Normal bowel sounds, Soft; Negative: Tenderness Extremity Exam: Positive: Edema (there is 1+ pitting edema in the right lower leg); Negative: Cyanosis Skin Exam: Positive: Nl turgor and temperature; Negative: Rash Neuro Exam: Positive: Normal Speech, Normal Tone Psych Exam: Positive: Mental status NL, Mood NL, Memory Intact, Oriented x 3 Vital Signs Vital Signs Date Time Temp Pulse Resp B/P (MAP) Pulse Ox O2 Delivery O2 Flow Rate FiO2 06/13/20 22:30 119 20 143/63 (89) 95 Nasal Cannula 3.0 06/13/20 21:48 99.9 Laboratory Data Labs 24H Laboratory Tests 2 06/13/20 20:12: Immature Granulocyte % (Auto) 0.4, Neutrophils (%) (Auto) 81.1H, Lymphocytes (%) (Auto) 10.3L, Monocytes (%) (Auto) 6.3H, Eosinophils (%) (Auto) 1.4, Basophils (%) (Auto) 0.5, Neutrophils # (Auto) 8.9H, Lymphocytes # (Auto) 1.1L, Monocytes # (Auto) 0.7, Eosinophils # (Auto) 0.2, Basophils # (Auto) 0.1, Nucleated Red Blood Cells % (auto) 0.0, Prothrombin Time 12.5, Prothromb Time International Ratio 0.92, D-Dimer, Quantitative 2155.38H, Blood Gas Bicarbonate Standard 28.2, Venous Blood pH 7.231L, Venous Blood Partial Pressure CO2 82.6H, Venous Blood Partial Pressure O2 165.9H, Venous Blood Total Carbon Dioxide 36.4H, Venous Blood HCO3 33.9H, Venous Blood Oxygen Saturation 99.2H, Venous Blood Base Excess 4.1H, Anion Gap 3L, Glomerular Filtration Rate > 60.0, Lactic Acid Level 1.0, Calcium Level 9.0, Total Bilirubin 0.2, Direct Bilirubin < 0.1, Aspartate Amino Transf (AST/SGOT) 14, Alanine Aminotransferase (ALT/SGPT) 18, Alkaline Phosphatase 110, Total Creatine Kinase 49, Creatine Kinase MB < 1.0, Creatine Kinase MB Relative Index 2.04, Troponin I < 0.02, GB-Swc-G-Type Natriuretic Peptide 456H, Total Protein 7.1, Albumin 3.6, Albumin/Globulin Ratio 1.0L 06/13/20 21:53: Urine Color STRAW, Urine Appearance CLEAR, Urine pH 6.0, Urine Specific [place] 1.009, Urine Protein NEGATIVE, Urine Glucose (UA) NEGATIVE, Urine Ketones NEGATIVE, Urine Blood 1+H, Urine Nitrite NEGATIVE, Urine Bilirubin NEGATIVE, Urine Urobilinogen 0.2, Urine Leukocyte Esterase NEGATIVE, Urine WBC (Auto) 0, Urine RBC (Auto) 2, Urine Hyaline Casts (Auto) 0, Urine Bacteria (Auto) NEGATIVE, Urine Squamous Epithelial Cells 0, Urine Sperm (Auto) CBC/BMP Laboratory Tests 06/13/20 20:12 Microbiology Microbiology 06/13/20 Respiratory Virus Panel (PCR) (STACIE) - Final, Complete 06/13/20 Blood Culture, Received Pending Assessment/Plan This is a 69-year-old woman who requires admission to the hospital for management of an acute exacerbation of COPD. Problems (1) COPD exacerbation Status: Acute Discussed With: Nurse, Patient Problem Specific Plan: Monitor Clinically, Repeat Labs Problem Text: She has a fairly classic COPD exacerbation. I believe this started with a viral infection and I'm not convinced she has a bacterial secondary infection, therefore she wouldn't need antibiotics. I did order pro- calcitonin to help support my theory of bacterial infection. She was started on oral prednisone. (2) Thrush, oral Status: Acute Discussed With: Patient Problem Specific Plan: Monitor Clinically Problem Text: She reports this has happened during the past. It usually related to use of her steroid inhalers. I reviewed the importance of rinse her mouth out after she uses her inhalers and prescribed nystatin swish and swallow for her. (3) Chronic neck and back pain Status: Chronic Problem Specific Plan: Monitor Clinically Problem Text: She has been on opioids through her PCP for this problem. She reported to me she is typically taking 3 doses of Percocet 10mg daily. I will order this for her. We do need to watch for respiratory depression (4) Restless leg syndrome Status: Chronic Problem Text: Continue ropinirole. (5) GERD (gastroesophageal reflux disease) Status: Chronic Problem Specific Plan: Monitor Clinically Problem Text: Continue a PPI Plan / VTE VTE Prophylaxis Ordered?: Yes Plan Advanced Directives: Health Care Proxy (HCP) (she verbally identified her , Errol Stanley , to be her alternate decision-maker if she were unable to make her own medical decisions.) Luciano Ramos MD Jun 13, 2020 23:38
[2020-06-13] MEDS ORDERED: ALBUTEROL 90 MCG/ACT 8GM HFA INHALER INH PRN (23:45)
[2020-06-14] MEDS: NYSTATIN 500,000 U/5 ML SUSP UDC SS SCH ×6 (01:00→23:12)
[2020-06-14] MEDS ORDERED: ACETAMINOPHEN TAB 650MG DOSE (2X325MG) PO PRN (01:00)
[2020-06-14 01:10] VITALS: BP 132/80
[2020-06-14] MEDS: GABAPENTIN 400MG CAP PO SCH ×4 (02:19→20:54)
[2020-06-14] MEDS: ATORVASTATIN 20 MG TAB PO SCH ×2 (02:19→20:54)
[2020-06-14] MEDS: rOPINIRole 0.25 MG TAB(REQUIP) PO SCH ×3 (02:19→20:54)
[2020-06-14] MEDS: OLANZapine 5 MG TAB PO SCH ×3 (02:19→20:54)
[2020-06-14] MEDS: NS 1,000 ML IV SCH ×2 (02:20→14:56)
[2020-06-14 05:54] LABS: ABG BASE EXCESS 4.2 (-2.0-2.0); ABG O2 SATURATION 97.8 % (95.0-99.0); ABG PARTIAL PRESSURE CO2 84.7 mmHg (35.0-45.0); ABG PARTIAL PRESSURE O2 102.1 mmHg (75.0-100.0); ABG STANDARD HCO3 28.2 MEQ/L (22.0-26.0); ABG TOTAL CO2 36.6 MEQ/L (23.0-31.0); ABG pH (ARTERIAL) 7.222 UNITS (7.350-7.450)
[2020-06-14 06:00] VITALS: BP 137/82
[2020-06-14 07:20] LABS: BASO % 0.4 % (0.0-1.0); EOS % 0.1 % (0.0-3.0); HEMATOCRIT 39.1 % (36.0-47.0); HEMOGLOBIN 11.2 g/dl (12.0-15.5); LYMPH # 0.6 10^3/uL (1.5-5.0); LYMPH % 6.5 % (24.0-44.0); MEAN CORPUSCULAR HEMOGLOBIN 28.5 pg (27.0-33.0); MEAN CORPUSCULAR HGB CONC 28.6 g/dl (32.0-36.5); MEAN CORPUSCULAR VOLUME 99.5 fl (80.0-96.0); MONO # 0.1 10^3/uL (0.0-0.8); MONO % 0.7 % (0.0-5.0); NEUTROPHILS # 8.4 10^3/uL (1.5-8.5); NEUTROPHILS % 91.6 % (36.0-66.0); PLATELET COUNT, AUTOMATED 226 10^3/uL (150-450); RED BLOOD COUNT 3.93 10^6/uL (4.00-5.40); WHITE BLOOD COUNT 9.1 10^3/uL (4.0-10.0)
[2020-06-14] MEDS ORDERED: EXCEDRIN MIGRAINE TABLET PO PRN (09:00)
[2020-06-14] MEDS ORDERED: predniSONE 20 MG TAB PO SCH (09:00)
[2020-06-14] MEDS ORDERED: FERROUS SULFATE 325MG TAB PO SCH (09:00)
[2020-06-14] MEDS ORDERED: SUMAtriptan SUCCINATE 25 MG TAB PO PRN (09:00)
[2020-06-14] MEDS ORDERED: DOCUSATE SODIUM 100MG CAPSULE PO SCH (09:00)
[2020-06-14] MEDS ORDERED: FUROSEMIDE 40 MG TAB PO SCH (09:00)
[2020-06-14] MEDS ORDERED: tiZANidine 4 MG TAB PO SCH (09:00)
[2020-06-14] MEDS: methylPREDNISolone 40MG 1ML VIAL IV SCH ×3 (09:13→20:53)
[2020-06-14 09:18] LABS: ABG BASE EXCESS 5.2 (-2.0-2.0); ABG HCO3 33.1 MEQ/L (22.0-26.0); ABG PARTIAL PRESSURE O2 59.4 mmHg (75.0-100.0); ABG TOTAL CO2 35.1 MEQ/L (23.0-31.0); ABG pH (ARTERIAL) 7.312 UNITS (7.350-7.450)
[2020-06-14] MEDS: IPRATROPIUM 0.5MG/ALBUTEROL 2.5MG INH SOL UD 3ML (DUONEB) NEB SCH ×3 (09:20→21:11)
[2020-06-14 09:23] LABS: ABG PARTIAL PRESSURE CO2 66.9 mmHg (35.0-45.0)
[2020-06-14] MEDS: ADVAIR HFA 230/21MCG INHALER INH SCH ×2 (09:28→21:11)
[2020-06-14] MEDS: POTASSIUM CHLORIDE 10 MEQ SR TABLET PO SCH (09:50)
[2020-06-14] MEDS: PANTOPRAZOLE 40MG TAB (PROTONIX) PO SCH (09:51)
[2020-06-14] MEDS: ENOXAPARIN 40MG/0.4ML SYRINGE (J1650 PER 10MG) SC SCH (09:52)
[2020-06-14 14:00] VITALS: BP 126/71
[2020-06-14] MEDS: LATANOPROST 0.005% OPHTH SOLN 2.5 ML OU SCH (20:53)
[2020-06-14] MEDS: NYSTATIN 100,000 UNITS/GM TOPICAL PWD 15 GM TOP SCH (20:54)
--- NOTE | 2020-06-14 21:47 | IPNPDOC ---
Subjective Date Seen The patient was seen on 06/14/20. Subjective Chief Complaint/HPI Reports that SOB has improved. No fever to chills. Repeat blood gas showed improvement from admission. Objective Physical Examination General Exam: Positive: Alert, Cooperative (resting comfortably in her ER stretcher when I entered the room), No Acute Distress Eye Exam: Positive: PERRLA, Conjunctiva & lids normal; Negative: Sclera icteric ENT Exam: Positive: Mucous membr. moist/pink, Tympanic Membranes Normal, Other ENT (there are scattered red papules noted on her palate); Negative: Pharyngeal Edema Neck Exam: Positive: Supple; Negative: Lymphadenopathy Chest Exam: Positive: Diminished, Other (some basal crackles) Heart Exam: Positive: Rate Normal, Regular Rhythm, Normal S1, Normal S2, Murmurs (systolic murmur present) Abdomen Exam: Positive: Normal bowel sounds, Soft; Negative: Tenderness Extremity Exam: Negative: Clubbing, Cyanosis, Edema Skin Exam: Positive: Nl turgor and temperature; Negative: Rash Neuro Exam: Positive: Normal Speech, Strength at 5/5 X4 ext, Normal Tone Psych Exam: Positive: Mood NL, Memory Intact, Oriented x 3 Assessment /Plan Assessment 69 year old female with PMH of COPD , Obesity, CHINTAN ( CPAP machine taken away as wa not using it ) Chronic respiratory failure with hypoxia ( uses oxygen at night), History of lung cancer s/p right upper lobectomy, Chronic Kidney Disease Stage 3a GERD, Iron Deficiency Anemia, Restless Leg Syndrome, Chronic Back Pain, History T9-L2 fusion complicated by post-operative infection was admitted for acute on chronic respiratory failure with hypercarbia and hypoxia due to COPD exacerbation. Acute on chronic respiratory failure ABG improved without BIPAP continue treatment for COPD exacerbation will repeat ABG in pm and tomorrow am. COPD exacerbation continue advair, duonebs, methyl pred CHINTAN untreated. Did not like the CPAP machine so was not using it . So it was taken away. Only uses oxygen at night. Severe Pulmonary hypertension with right heart failure Lasix held at present. will restart tomorrow. Chronic diastolic dysfunction/ diastolic CHF does not have overt fluid overload at present will hold lasix today. History of Adenocarcinoma of lung s/p right upper lobectomy no issues at this time GERD PPI Iron Deficiency Anemia Hb better than before. Could be mildly dehydrated so may be higher than prior. On iron. follow up with pMD Last colonoscopy in 2006. should get a repeat colonoscopy. Restless Leg Syndrome Ropinirole Chronic Back Pain with bilateral lower extremity weakness S/p arthrodesis of T9-L2 with laminectomy and decompression from T11-L1 with T12 corpectomy with cage placement for a burst T12 fracture Complicated by Dural tear requiring revisit to OR and repair of Dural tear, Pulmonary Embolism, Possible meningitis due to spinal tear and wound grew ECOLI KLEBSIELLA PNEUMONIAE EFECALIS continue gabapentin, Tizanidine held. Glaucoma continue the eye drops will hold tizanidine for now. Migraine continue home meds HLD atorvastatin. CKD2 creatinine is stable. Plan/VTE VTE Prophylaxis Ordered?: Yes VS, I&O, 24H, Fishbone Vital Signs/I&O Vital Signs Date Time Temp Pulse Resp B/P (MAP) Pulse Ox O2 Delivery O2 Flow Rate FiO2 06/14/20 14:00 98.5 113 18 126/71 (89) 89 Nasal Cannula 1.0 I&O- Last 24 Hours up to 6 AM 06/14/20 07:00 Intake Total 1060 ml Output Total 900 ml Balance 160 ml Laboratory Data 24H LABS Laboratory Tests 2 06/13/20 21:53: Urine Color STRAW, Urine Appearance CLEAR, Urine pH 6.0, Urine Specific [place] 1.009, Urine Protein NEGATIVE, Urine Glucose (UA) NEGATIVE, Urine Ketones NEG ATIVE, Urine Blood 1+H, Urine Nitrite NEGATIVE, Urine Bilirubin NEGATIVE, Urine Urobilinogen 0.2, Urine Leukocyte Esterase NEGATIVE, Urine WBC (Auto) 0, Urine RBC (Auto) 2, Urine Hyaline Casts (Auto) 0, Urine Bacteria (Auto) NEGATIVE, Urine Squamous Epithelial Cells 0, Urine Sperm (Auto) 06/14/20 05:45: Blood Gas Bicarbonate Standard 28.2H, Arterial Blood pH 7.222*L, Arterial Blood Partial Pressure CO2 84.7*H, Arterial Blood Partial Pressure O2 102.1H, Arterial Blood Total CO2 36.6H, Arterial Blood HCO3 34.0H, Arterial Blood Base Excess 4.2H, Arterial Blood Oxygen Saturation 97.8 06/14/20 06:35: Immature Granulocyte % (Auto) 0.7, Neutrophils (%) (Auto) 91.6H, Lymphocytes (%) (Auto) 6.5L, Monocytes (%) (Auto) 0.7, Eosinophils (%) (Auto) 0.1, Basophils (%) (Auto) 0.4, Neutrophils # (Auto) 8.4, Lymphocytes # (Auto) 0.6L, Monocytes # (Auto) 0.1, Eosinophils # (Auto) 0.0, Basophils # (Auto) 0.0, Nucleated Red Blood Cells % (auto) 0.0 06/14/20 08:59: Blood Gas Bicarbonate Standard 29.0H, Arterial Blood pH 7.312L, Arterial Blood Partial Pressure CO2 66.9*H, Arterial Blood Partial Pressure O2 59.4L, Arterial Blood Total CO2 35.1H, Arterial Blood HCO3 33.1H, Arterial Blood Base Excess 5.2H, Arterial Blood Oxygen Saturation 91.0L CBC/BMP Laboratory Tests 06/14/20 06:35 Microbiology Microbiology 06/13/20 Respiratory Virus Panel (PCR) (STACIE) - Final, Complete 06/13/20 Blood Culture - Preliminary, Resulted No growth after 24 hours . All specim... CAITLYN SHAFER MD Jun 14, 2020 21:47
[2020-06-14 22:00] VITALS: BP 135/76
[2020-06-15] MEDS: IPRATROPIUM 0.5MG/ALBUTEROL 2.5MG INH SOL UD 3ML (DUONEB) NEB SCH ×4 (01:32→20:00)
[2020-06-15] MEDS: methylPREDNISolone 40MG 1ML VIAL IV SCH (02:32)
[2020-06-15 06:00] VITALS: BP 140/77
[2020-06-15] MEDS: ADVAIR HFA 230/21MCG INHALER INH SCH ×2 (06:16→20:00)
[2020-06-15 06:24] LABS: ABG BASE EXCESS 4.4 (-2.0-2.0); ABG HCO3 30.1 MEQ/L (22.0-26.0); ABG O2 SATURATION 98.4 % (95.0-99.0); ABG PARTIAL PRESSURE CO2 50.1 mmHg (35.0-45.0); ABG PARTIAL PRESSURE O2 122.1 mmHg (75.0-100.0); ABG STANDARD HCO3 28.4 MEQ/L (22.0-26.0); ABG TOTAL CO2 31.6 MEQ/L (23.0-31.0); ABG pH (ARTERIAL) 7.396 UNITS (7.350-7.450)
[2020-06-15] MEDS: NYSTATIN 500,000 U/5 ML SUSP UDC SS SCH ×4 (06:33→23:14)
[2020-06-15 07:03] LABS: BASO % 0.1 % (0.0-1.0); EOS % 0.1 % (0.0-3.0); HEMATOCRIT 36.3 % (36.0-47.0); HEMOGLOBIN 10.5 g/dl (12.0-15.5); LYMPH # 0.7 10^3/uL (1.5-5.0); MEAN CORPUSCULAR HEMOGLOBIN 28.3 pg (27.0-33.0); MEAN CORPUSCULAR HGB CONC 28.9 g/dl (32.0-36.5); MEAN CORPUSCULAR VOLUME 97.8 fl (80.0-96.0); MONO # 0.6 10^3/uL (0.0-0.8); MONO % 4.2 % (0.0-5.0); NEUTROPHILS # 13.1 10^3/uL (1.5-8.5); NEUTROPHILS % 89.6 % (36.0-66.0); PLATELET COUNT, AUTOMATED 218 10^3/uL (150-450); RED BLOOD COUNT 3.71 10^6/uL (4.00-5.40); WHITE BLOOD COUNT 14.6 10^3/uL (4.0-10.0)
[2020-06-15 07:33] LABS: BLOOD UREA NITROGEN 14 MG/DL (7-18); CALCIUM LEVEL 9.3 MG/DL (8.8-10.2); CARBON DIOXIDE LEVEL 29 MEQ/L (21-32); CHLORIDE LEVEL 106 MEQ/L (98-107); CREATININE FOR GFR 0.63 MG/DL (0.55-1.30); GLOMERULAR FILTRATION RATE > 60.0 (>45); GLUCOSE, FASTING 150 MG/DL (70-100); POTASSIUM SERUM 4.4 MEQ/L (3.5-5.1); SODIUM LEVEL 143 MEQ/L (136-145)
--- NOTE | 2020-06-15 08:32 | ECGEPIP ---
[facility] - ED Test Date: 2020-06-13 Pat Name: YUE ORELLANA Department: Room: [place] [address] Gender: Female Enologist: steff : 1950 Requested By: FLORIAN FAY Order Number: [id number] Reading MD: Leatha Sánchez Measurements Intervals [place] Rate: 126 P: 57 KS: 145 QRS: -11 QRSD: 86 T: 32 QT: 337 QTc: 488 Interpretive Statements SINUS TACHYCARDIA WITH OCCASIONAL VENTRICULAR PREMATURE COMPLEXES POSSIBLE RIGHT VENTRICULAR CONDUCTION DELAY INFERIOR MYOCARDIAL INFARCTION, PROBABLY OLD INCREASED RATE 03/22/20 Electronically Signed on 06-15-2020 8:32:21 EST by Leatha Sánchez
[2020-06-15] MEDS: OLANZapine 5 MG TAB PO SCH ×2 (09:11→20:36)
[2020-06-15] MEDS: predniSONE 20 MG TAB PO SCH (09:11)
[2020-06-15] MEDS: PANTOPRAZOLE 40MG TAB (PROTONIX) PO SCH (09:11)
[2020-06-15] MEDS: GABAPENTIN 400MG CAP PO SCH ×3 (09:11→20:36)
[2020-06-15] MEDS: rOPINIRole 0.25 MG TAB(REQUIP) PO SCH ×2 (09:11→20:36)
[2020-06-15] MEDS: POTASSIUM CHLORIDE 10 MEQ SR TABLET PO SCH (09:11)
[2020-06-15] MEDS: ENOXAPARIN 40MG/0.4ML SYRINGE (J1650 PER 10MG) SC SCH (09:12)
[2020-06-15] MEDS: NYSTATIN 100,000 UNITS/GM TOPICAL PWD 15 GM TOP SCH ×2 (09:12→20:37)
[2020-06-15] MEDS: PERCOCET 5MG/325MG TAB PO PRN ×2 (09:15→18:57)
--- NOTE | 2020-06-15 10:11 | IPNPDOC ---
Subjective Date Seen The patient was seen on 06/15/20. Subjective Chief Complaint/HPI Feeling jonathan. SOB better, sitting up in chair and having breakfast. Abg seems to be at baseline now. Objective Physical Examination General Exam: Positive: Alert, Cooperative (resting comfortably in her ER stretcher when I entered the room), No Acute Distress Eye Exam: Positive: PERRLA, Conjunctiva & lids normal; Negative: Sclera icteric ENT Exam: Positive: Mucous membr. moist/pink, Tympanic Membranes Normal, Other ENT (there are scattered red papules noted on her palate); Negative: Pharyngeal Edema Neck Exam: Positive: Supple; Negative: Lymphadenopathy Chest Exam: Positive: Diminished, Other (some basal crackles) Heart Exam: Positive: Rate Normal, Regular Rhythm, Normal S1, Normal S2, Murmurs (systolic murmur present) Abdomen Exam: Positive: Normal bowel sounds, Soft; Negative: Tenderness Extremity Exam: Negative: Clubbing, Cyanosis, Edema Skin Exam: Positive: Nl turgor and temperature; Negative: Rash Neuro Exam: Positive: Normal Speech, Strength at 5/5 X4 ext, Normal Tone Psych Exam: Positive: Mood NL, Memory Intact, Oriented x 3 Assessment /Plan Assessment 69 year old female with PMH of COPD , Obesity, CHINTAN ( CPAP machine taken away as wa not using it ) Chronic respiratory failure with hypoxia ( uses oxygen at night), History of lung cancer s/p right upper lobectomy, Chronic Kidney Disease Stage 3a GERD, Iron Deficiency Anemia, Restless Leg Syndrome, Chronic Back Pain, History T9-L2 fusion complicated by post-operative infection was admitted for acute on chronic respiratory failure with hypercarbia and hypoxia due to COPD exacerbation. Acute on chronic respiratory failure resolved . Now Co2 is at baseline. ABG improved without BIPAP continue treatment for COPD exacerbation COPD exacerbation continue jeremy caldwell, pred CHINTAN untreated. Did not like the CPAP machine so was not using it . So it was taken away. Only uses oxygen at night. Severe Pulmonary hypertension with right heart failure Lasix held at present. will restart tomorrow. Chronic diastolic dysfunction/ diastolic CHF does not have overt fluid overload at present will hold lasix today. History of Adenocarcinoma of lung s/p right upper lobectomy no issues at this time GERD PPI Iron Deficiency Anemia Hb better than before. Could be mildly dehydrated so may be higher than prior. On iron. follow up with pMD Last colonoscopy in 2006. should get a repeat colonoscopy. Restless Leg Syndrome Ropinirole Chronic Back Pain with bilateral lower extremity weakness S/p arthrodesis of T9-L2 with laminectomy and decompression from T11-L1 with T12 corpectomy with cage placement for a burst T12 fracture Complicated by Dural tear requiring revisit to OR and repair of Dural tear, Pulmonary Embolism, Possible meningitis due to spinal tear and wound grew ECOLI KLEBSIELLA PNEUMONIAE EFECALIS continue gabapentin, Tizanidine held. Glaucoma continue the eye drops will hold tizanidine for now. Migraine continue home meds HLD atorvastatin. CKD2 creatinine is stable. Plan/VTE VTE Prophylaxis Ordered?: Yes VS, I&O, 24H, Fishbone Vital Signs/I&O Vital Signs Date Time Temp Pulse Resp B/P (MAP) Pulse Ox O2 Delivery O2 Flow Rate FiO2 06/15/20 09:58 19 06/15/20 06:00 97.2 111 140/77 (98) 94 Nasal Cannula 1.0 I&O- Last 24 Hours up to 6 AM 06/15/20 06:00 Intake Total 2900 ml Output Total 625 ml Balance 2275 ml Laboratory Data 24H LABS Laboratory Tests 2 06/15/20 06:14: Blood Gas Bicarbonate Standard 28.4H, Arterial Blood pH 7.396, Arterial Blood Partial Pressure CO2 50.1H, Arterial Blood Partial Pressure O2 122.1H, Arterial Blood Total CO2 31.6H, Arterial Blood HCO3 30.1H, Arterial Blood Base Excess 4.4H, Arterial Blood Oxygen Saturation 98.4 06/15/20 06:32: Immature Granulocyte % (Auto) 1.0, Neutrophils (%) (Auto) 89.6H, Lymphocytes (%) (Auto) 5.0L, Monocytes (%) (Auto) 4.2, Eosinophils (%) (Auto) 0.1, Basophils (%) (Auto) 0.1, Neutrophils # (Auto) 13.1H, Lymphocytes # (Auto) 0.7L, Monocytes # (Auto) 0.6, Eosinophils # (Auto) 0.0, Basophils # (Auto) 0.0, Nucleated Red Blood Cells % (auto) 0.0, Anion Gap 8, Glomerular Filtration Rate > 60.0, Calcium Level 9.3 CBC/BMP Laboratory Tests 06/15/20 06:32 Microbiology Microbiology 06/13/20 Respiratory Virus Panel (PCR) (STACIE) - Final, Complete 06/13/20 Blood Culture - Preliminary, Resulted No growth after 24 hours . All specim... CAITLYN SHAFER MD Jun 15, 2020 10:11
[2020-06-15 14:00] VITALS: BP 136/74
[2020-06-15] MEDS: NICOTINE POLACRILEX 2 MG GUM PO PRN (17:57)
[2020-06-15] MEDS: ATORVASTATIN 20 MG TAB PO SCH (20:36)
[2020-06-15] MEDS: LATANOPROST 0.005% OPHTH SOLN 2.5 ML OU SCH (20:37)
[2020-06-15 22:00] VITALS: BP 140/72
[2020-06-16] MEDS: IPRATROPIUM 0.5MG/ALBUTEROL 2.5MG INH SOL UD 3ML (DUONEB) NEB SCH ×2 (02:30→07:49)
[2020-06-16 06:00] VITALS: BP 149/87
[2020-06-16] MEDS: NYSTATIN 500,000 U/5 ML SUSP UDC SS SCH ×2 (06:37→11:15)
[2020-06-16] MEDS: PERCOCET 5MG/325MG TAB PO PRN (06:40)
[2020-06-16] MEDS: ADVAIR HFA 230/21MCG INHALER INH SCH (07:50)
[2020-06-16 08:23] LABS: BASO % 0.2 % (0.0-1.0); EOS % 0.2 % (0.0-3.0); HEMOGLOBIN 10.2 g/dl (12.0-15.5); LYMPH # 2.4 10^3/uL (1.5-5.0); LYMPH % 15.6 % (24.0-44.0); MEAN CORPUSCULAR HEMOGLOBIN 28.7 pg (27.0-33.0); MEAN CORPUSCULAR VOLUME 95.8 fl (80.0-96.0); MONO # 1.2 10^3/uL (0.0-0.8); MONO % 7.8 % (0.0-5.0); NEUTROPHILS # 11.7 10^3/uL (1.5-8.5); NEUTROPHILS % 75.5 % (36.0-66.0); PLATELET COUNT, AUTOMATED 268 10^3/uL (150-450); RED BLOOD COUNT 3.55 10^6/uL (4.00-5.40); WHITE BLOOD COUNT 15.4 10^3/uL (4.0-10.0)
[2020-06-16 08:43] LABS: BLOOD UREA NITROGEN 17 MG/DL (7-18); CALCIUM LEVEL 9.2 MG/DL (8.8-10.2); CARBON DIOXIDE LEVEL 32 MEQ/L (21-32); CHLORIDE LEVEL 106 MEQ/L (98-107); CREATININE FOR GFR 0.62 MG/DL (0.55-1.30); GLOMERULAR FILTRATION RATE > 60.0 (>45); GLUCOSE, FASTING 80 MG/DL (70-100); POTASSIUM SERUM 3.8 MEQ/L (3.5-5.1); SODIUM LEVEL 144 MEQ/L (136-145)
[2020-06-16] MEDS: rOPINIRole 0.25 MG TAB(REQUIP) PO SCH (09:53)
[2020-06-16] MEDS: OLANZapine 5 MG TAB PO SCH (09:53)
[2020-06-16] MEDS: ENOXAPARIN 40MG/0.4ML SYRINGE (J1650 PER 10MG) SC SCH (09:53)
[2020-06-16] MEDS: GABAPENTIN 400MG CAP PO SCH (09:54)
[2020-06-16] MEDS: PANTOPRAZOLE 40MG TAB (PROTONIX) PO SCH (09:54)
[2020-06-16] MEDS: POTASSIUM CHLORIDE 10 MEQ SR TABLET PO SCH (09:54)
[2020-06-16] MEDS: predniSONE 20 MG TAB PO SCH (09:54)
[2020-06-16] MEDS: NYSTATIN 100,000 UNITS/GM TOPICAL PWD 15 GM TOP SCH (09:54)
[2020-06-16] MEDS ORDERED: NYST50SS SS (11:19)
[2020-06-16] MEDS: NICOTINE POLACRILEX 2 MG GUM PO PRN (11:19)
[2020-06-16] MEDS ORDERED: PRED20TA PO (11:19)
--- NOTE | 2020-06-16 11:53 | DS.PDOC ---
Discharge Summary General Date of Admission Jun 13, 2020 at 23:38 Date of Discharge 06/16/2020 Attending Physician: WILLIAMS REYNOSO MD Discharge Summary PROCEDURES PERFORMED DURING STAY: None ADMITTING DIAGNOSES: 1. COPD exacerbation DISCHARGE DIAGNOSES: 1. COPD exacerbation 2. History of lung cancer s/p right upper lobectomy 3. Chronic Kidney Disease Stage 3a 4. GERD 5. Iron Deficiency Anemia 6. Restless Leg Syndrome 7. Chronic Back Pain 8. Acute on chronic hypoxemic respiratory failure 9. Acute hypercarbic respiratory failure i/s/o COPD exacerbation, resolved 10. CHINTAN 11. Oral candidiasis COMPLICATIONS/CHIEF COMPLAINT: Copd W/Acute Exacerbation,Thrush. HISTORY OF PRESENT ILLNESS: 69 year old W with PMH of COPD , Obesity, CHINTAN ( CPAP machine taken away as was not using it), Chronic respiratory failure with hypoxia, History of lung cancer s/p right upper lobectomy, Chronic Kidney Disease Stage 3a , GERD, Iron Deficiency Anemia, Restless Leg Syndrome, Chronic Back Pain, History of T9-L2 fusion complicated by post-operative infection was admitted for acute on chronic respiratory failure with hypercarbia and hypoxia due to COPD exacerbation. HOSPITAL COURSE: On admission, respiratory panel was negative for covid-19 and CXR was without consolidations. She was given steroids and hypercarbia improved without BiPAP as well as hypoxemia. She is now being discharged home with supplemental oxygen per baseline, on 1L NC presently. Of note, she was noted to have oral candidiasis and will complete a short course antifungal therapy. DISCHARGE MEDICATIONS: Please see below. ALLERGIES: Please see below. PHYSICAL EXAMINATION ON DISCHARGE: VITAL SIGNS: Please see below. General: No Acute Distress, speaking in full sentences while on 1L NC Eyes: Conjunctiva & lids normal, anicteric ENT: Mucous membr. moist/pink Neck: Supple Chest: Diminished, otherwise with bibasilar crackles but no wheezing or rhonchi Heart: Rate Normal, Regular Rhythm, Normal S1, Normal S2, systolic murmur present Abdomen: Normal bowel sounds, Soft, NTND Extremities: no edema, WWP Neuro: Normal Speech, Strength at 5/5 X4 ext, Normal Tone Psych: Alert and Oriented x 3 LABORATORY DATA: Please see below. IMAGING: CTA chest: FINDINGS: Pulmonary arteries: No pulmonary embolism. Aorta: The thoracic aorta is intact and patent. There is no thoracic aortic aneurysm, pseudoaneurysm, penetrating atherosclerotic ulcer, intramural hematoma, or dissection. There are mild to moderate atherosclerotic calcifications. Great vessels off aortic arch: The brachiocephalic artery, imaged proximal portions of the common carotid arteries, imaged proximal portions of the vertebral arteries, and subclavian arteries are intact. No stenosis or occlusion of these vessels is noted. Trachea: Normal. Bronchial tree: Normal. Lungs: Postoperative changes are noted from a right upper lobectomy. There is atelectasis in the right middle lobe, lingula, and both lower lobes. No lung consolidation, mass, or emphysematous changes are noted. Pleural space: Unremarkable. No pneumothorax. No pleural effusion. Heart: No cardiomegaly or pericardial effusion. The ratio of the diameter of the right ventricle to the diameter of the left ventricle measures less than 1, which is within normal limits and there is no CT evidence for a right ventricular strain. There are coronary artery calcifications. Mediastinal space: There are surgical clips in the right hilar region. No mediastinal mass, fluid collection, or pneumomediastinum is noted. Lymph nodes: No enlarged lymph nodes. Liver: Unremarkable. No liver lesion is identified. The contour of the liver is smooth. No hepatomegaly is noted. Gallbladder and bile ducts: There has been a cholecystectomy. There is no fluid collection in the gallbladder fossa. No dilation of the bile ducts is noted. No calcified stones are seen in the common bile duct. Spleen: The spleen is heterogeneous in appearance, which is likely secondary to the arterial timing of the contrast bolus. No splenomegaly. Adrenals: Normal. No adrenal mass is noted. Bones/joints: There is a severe anterior wedge compression fracture of T9 that has developed since the prior CT chest on 01/09/2019, and there is a visible radiolucent fracture line along the inferior endplate and increased sclerosis in the vertebral body. No retropulsion of the cortex is noted. Postoperative changes are noted from an anterior cervical discectomy and interbody fusion in the lower cervical spine at the C6-C7 level, which was not fully imaged. Bilateral vertical posterior rods are noted extending from the T9 level to the L1 level and there are bilateral transpedicular screws at the T10, T11, and L1 levels, and the hardware is intact and appropriately positioned, without evidence for loosening. There has been a T12 corpectomy and laminectomy and a corpectomy device is in place. There has been a resection of the bilateral posteromedial 12th ribs. There are old healed fracture deformities involving the right anterior 2nd, 3rd, 4th, and 5th ribs, right posteromedial 11th rib, and left posterolateral 7th rib. Soft tissues: There is a small amount of fluid in the soft tissues posteriorly along the midline of the thoracolumbar region with surrounding scar tissue, which may represent a postoperative seroma. IMPRESSION: 1. No pulmonary embolism. 2. Severe anterior wedge compression fracture of T9 that has developed since the prior CT chest on 01/09/2019. PROGNOSIS: Good ACTIVITY: As tolerated DIET: 2g sodium DISCHARGE PLAN: Home DISPOSITION: Home DISCHARGE INSTRUCTIONS: 1. Home with 3d of 40mg daily of prednisone and PCP follow up within 1 week of discharge ITEMS TO FOLLOWUP ON ON OUTPATIENT: 1. COPD exacerbation 2. PCP follow up on Severe anterior wedge compression fracture of T9 that has developed since the prior CT chest on 01/09/2019. DISCHARGE CONDITION: Stable TIME SPENT ON DISCHARGE: 36 minutes. Vital Signs/I&Os Vital Signs Date Time Temp Pulse Resp B/P (MAP) Pulse Ox O2 Delivery O2 Flow Rate FiO2 06/16/20 07:10 18 06/16/20 06:00 98.1 104 149/87 (107) 96 Nasal Cannula 1.0 I&O- Last 24 Hours up to 6 AM 06/16/20 06:00 Intake Total 1920 ml Output Total 750 ml Balance 1170 ml Laboratory Data Labs 24H Laboratory Tests 2 06/15/20 15:25: Lab Scanned Report Miscellaneous Lab 06/16/20 07:23: Immature Granulocyte % (Auto) 0.7, Neutrophils (%) (Auto) 75.5H, Lymphocytes (%) (Auto) 15.6L, Monocytes (%) (Auto) 7.8H, Eosinophils (%) (Auto) 0.2, Basophils (%) (Auto) 0.2, Neutrophils # (Auto) 11.7H, Lymphocytes # (Auto) 2.4, Monocytes # (Auto) 1.2H, Eosinophils # (Auto) 0.0, Basophils # (Auto) 0.0, Nucleated Red Blood Cells % (auto) 0.0, Anion Gap 6L, Glomerular Filtration Rate > 60.0, Calcium Level 9.2 CBC/BMP Laboratory Tests 06/16/20 07:23 Microbiology Microbiology 06/13/20 Respiratory Virus Panel (PCR) ([facility]IE) - Final, Complete 06/13/20 Blood Culture - Preliminary, Resulted No Growth after 48 hours. All Specime... Discharge Medications Scheduled Atorvastatin Calcium (Atorvastatin Calcium) 20 Mg Tablet, 20 MG PO QHS, (Reported) Ferrous Sulfate (Ferrous Sulfate) 325 Mg Tablet, 325 MG PO BID, (Reported) Fluticasone Propion/Salmeterol (Advair Hfa 230-21 Mcg Inhaler) 12 Gm Hfa.aer.ad, 2 PUFF INH BID, (Reported) Furosemide (Furosemide) 40 Mg Tablet, 40 MG PO DAILY, (Reported) Gabapentin (Gabapentin) 400 Mg Capsule, 400 MG PO TID, (Reported) Lactobacillus Acidophilus (Acidophilus) 1 Each Tablet, 1 TAB PO BID, (Reported) Latanoprost (Xalatan) 0.005% 2.5ML Drops, 1 DROP OU QHS, (Reported) Nystatin (Nystatin Oral Susp) 100,000 Unit/1 Ml Oral.susp, 5 ML SS Q6H Olanzapine (Olanzapine) 5 Mg Tablet, 5 MG PO BID, (Reported) Pantoprazole Sodium (Pantoprazole Sodium) 40 Mg Tablet.dr, 40 MG PO DAILY, (Reported) Potassium Chloride (Potassium Chloride) 20 Meq Tab.er.prt, 40 MEQ PO QAM, (Reported) Prednisone (Prednisone) 20 Mg Tablet, 40 MG PO DAILY Ropinirole HCl (Ropinirole HCl) 0.25 Mg Tablet, 0.5 MG PO QAM, (Reported) Ropinirole HCl (Ropinirole HCl) 0.25 Mg Tablet, 0.25 MG PO QPM, (Reported) Tizanidine HCl (Tizanidine HCl) 4 Mg Tablet, 4 MG PO QID, (Reported) Scheduled PRN Albuterol Sulfate (Ventolin Hfa) 108 Mcg/Act Aer, 2 PUFFS INH Q4H PRN for SHORTNESS OF BREATH, (Reported) Aspirin/Acetaminophen/Caffeine (Excedrin Migraine Caplet) 1 Each Tablet, 2 TAB- CAP PO DAILY PRN for HEADACHE, (Reported) Oxycodone HCl/Acetaminophen (Oxycodone-Acetaminophen 10-325) 1 Each Tablet, 1 TAB PO Q4H PRN for PAIN, (Reported) Sumatriptan Succinate (Sumatriptan Succinate) 100 Mg Tablet, 1 TAB PO ASDIRECTED PRN for MIGRAINE, (Reported) may repeat in 2 hours; do not exceed 200 mg in 24 hours Miscellaneous Medications [Med Rec Comment] , (Reported) UNABLE TO VERIFY EITH PATIENT. SPOKE WITH TO VERFY LAST DOSES AND USED LIST FROM LAST VISIT. STATES NOTHING HAS CHANGED Allergies Coded Allergies: Benzodiazepines (Verified Adverse Reaction, Intermediate, DELERIUM, 11/25/19) fentanyl (Verified Adverse Reaction, Mild, LOOPY, 11/20/19) morphine (Verified Adverse Reaction, Mild, SEDATION; profound, 11/20/19) pregabalin (Verified Adverse Reaction, Mild, FEET SWELLING, 11/25/19) WILLIAMS REYNOSO MD Jun 16, 2020 11:53
[2020-06-16] MEDS ORDERED: AMOX875T2 PO (12:55)
== END 2020-06-16 12:58 | disposition home or self-care (01) | DRG 189 ==
LOC: M ED 20:03 → M ED INP 23:38 → ENRESERV 06-14 00:38 → M MSPAV 06-14 01:08
PROVIDERS: ADMIT Family Medicine; ATTEND Internal Medicine
DX: J96.21 Acute and chronic respiratory failure with hypoxia (principal); J44.1 Chronic obstructive pulmonary disease with (acute) exacerbation; B37.0 Candidal stomatitis; I50.32 Chronic diastolic (congestive) heart failure; N18.31 Chronic kidney disease, stage 3a; K21.9 Gastro-esophageal reflux disease without esophagitis; I50.810 Right heart failure, unspecified; G43.909 Migraine, unspecified, not intractable, without status migrainosus; E66.9 Obesity, unspecified; I27.20 Pulmonary hypertension, unspecified; H40.9 Unspecified glaucoma; G25.81 Restless legs syndrome; M54.2 Cervicalgia; J96.02 Acute respiratory failure with hypercapnia; Z79.899 Other long term (current) drug therapy; Z88.5 Allergy status to narcotic agent; Z88.8 Allergy status to other drugs, medicaments and biological substances; Z90.49 Acquired absence of other specified parts of digestive tract; Z85.118 Personal history of other malignant neoplasm of bronchus and lung; Z90.2 Acquired absence of lung [part of]; Z87.891 Personal history of nicotine dependence; G47.33 Obstructive sleep apnea (adult) (pediatric); Z99.81 Dependence on supplemental oxygen; Z98.1 Arthrodesis status; Z11.52 Encounter for screening for COVID-19; Z68.39 Body mass index [BMI] 39.0-39.9, adult

== ENCOUNTER → 2020-07-23 | Outpatient (REF) | payer MEDICARE, OTHER ==
[~2020-07-23] MED LIST changes: +FERR1TAB8 PO; +MED REC COMMENT; +NYST50SS SS; +PRED20TA PO
[2020-07-23 14:39] LABS: BASO # 0.1 10^3/uL (0.0-0.2); BASO % 0.5 % (0.0-1.0); EOS # 0.3 10^3/uL (0.0-0.5); EOS % 2.5 % (0.0-3.0); HEMATOCRIT 36.8 % (36.0-47.0); HEMOGLOBIN 10.9 g/dl (12.0-15.5); LYMPH % 17.8 % (24.0-44.0); MEAN CORPUSCULAR HEMOGLOBIN 29.4 pg (27.0-33.0); MEAN CORPUSCULAR HGB CONC 29.6 g/dl (32.0-36.5); MEAN CORPUSCULAR VOLUME 99.2 fl (80.0-96.0); MONO % 9.1 % (2.0-8.0); NEUTROPHILS # 7.7 10^3/uL (1.5-8.5); NEUTROPHILS % 69.5 % (36.0-66.0); PLATELET COUNT, AUTOMATED 204 10^3/uL (150-450); RED BLOOD COUNT 3.71 10^6/uL (4.00-5.40); WHITE BLOOD COUNT 11.1 10^3/uL (4.0-10.0)
[2020-07-23 15:03] LABS: BLOOD UREA NITROGEN 12 MG/DL (7-18); C REACTIVE PROTEIN QUANTITATIV 0.54 MG/DL (0.00-0.30); CALCIUM LEVEL 9.5 MG/DL (8.8-10.2); CARBON DIOXIDE LEVEL 36 MEQ/L (21-32); CHLORIDE LEVEL 102 MEQ/L (98-107); CREATININE FOR GFR 0.83 MG/DL (0.55-1.30); GLOMERULAR FILTRATION RATE > 60.0 (>45); GLUCOSE, FASTING 92 MG/DL (70-100); POTASSIUM SERUM 3.8 MEQ/L (3.5-5.1); SODIUM LEVEL 140 MEQ/L (136-145)
[2020-07-23 15:14] LABS: ERYTHROCYTE SEDIMENTATION RATE 40 mm/hr (0-30)
== END ==
LOC: M SFHCPLAZ 12:47
PROVIDERS: ATTEND Internal Medicine Infectious Disease
DX: T81.49XA Infection following a procedure, other surgical site, initial encounter (principal); Z79.899 Other long term (current) drug therapy

== ENCOUNTER → 2020-07-23 | Outpatient (CLI) | payer MEDICARE, BC, OTHER ==
[2020-07-23 14:38] LABS: APPEARANCE, URINE CLEAR (CLEAR); BACTERIA, URINE AUTO NEGATIVE (NEGATIVE); BILIRUBIN, URINE AUTO NEGATIVE (NEGATIVE); BLOOD, URINE BLOOD NEGATIVE (NEGATIVE); COLOR, URINE YELLOW (YELLOW); GLUCOSE, URINE (UA) AUTO NEGATIVE (NEGATIVE); KETONE, URINE AUTO NEGATIVE (NEGATIVE); LEUKOCYTE ESTERASE, URINE AUTO TRACE (NEGATIVE); NITRITE, URINE AUTO NEGATIVE (NEGATIVE); PROTEIN, URINE AUTO NEGATIVE (NEGATIVE); RBC, URINE AUTO 1 /HPF (0-3); SPECIFIC GRAVITY URINE AUTO 1.013 (1.002-1.035); SQUAMOUS EPITHELIAL CELL UR AU 1 /HPF (0-6); UROBILINOGEN, URINE AUTO 0.2 mg/dL (0.0-2.0); WBC, URINE AUTO 3 /HPF (0-3)
[2020-07-23 14:40] LABS: BASO # 0.1 10^3/uL (0.0-0.2); BASO % 0.5 % (0.0-1.0); EOS # 0.3 10^3/uL (0.0-0.5); EOS % 2.6 % (0.0-3.0); HEMATOCRIT 36.5 % (36.0-47.0); HEMOGLOBIN 10.7 g/dl (12.0-15.5); LYMPH # 1.9 10^3/uL (1.5-5.0); LYMPH % 17.4 % (24.0-44.0); MEAN CORPUSCULAR HEMOGLOBIN 29.1 pg (27.0-33.0); MEAN CORPUSCULAR HGB CONC 29.3 g/dl (32.0-36.5); MEAN CORPUSCULAR VOLUME 99.2 fl (80.0-96.0); MONO % 9.2 % (2.0-8.0); NEUTROPHILS # 7.6 10^3/uL (1.5-8.5); NEUTROPHILS % 69.4 % (36.0-66.0); PLATELET COUNT, AUTOMATED 211 10^3/uL (150-450); RED BLOOD COUNT 3.68 10^6/uL (4.00-5.40); WHITE BLOOD COUNT 10.9 10^3/uL (4.0-10.0)
[2020-07-23 15:04] LABS: ALBUMIN 3.8 GM/DL (3.2-5.2); BLOOD UREA NITROGEN 12 MG/DL (7-18); CALCIUM LEVEL 9.5 MG/DL (8.8-10.2); CARBON DIOXIDE LEVEL 35 MEQ/L (21-32); CHLORIDE LEVEL 102 MEQ/L (98-107); CREATININE FOR GFR 0.82 MG/DL (0.55-1.30); GLOMERULAR FILTRATION RATE > 60.0 (>45); GLUCOSE, FASTING 93 MG/DL (70-100); PHOSPHORUS LEVEL 4.6 MG/DL (2.5-4.9); POTASSIUM SERUM 3.9 MEQ/L (3.5-5.1); SODIUM LEVEL 140 MEQ/L (136-145)
== END ==
LOC: M PLALAB 12:47
PROVIDERS: ATTEND Nurse Practitioner Family
DX: N18.2 Chronic kidney disease, stage 2 (mild) (principal); D64.9 Anemia, unspecified; E83.42 Hypomagnesemia
CPT/HCPCS: 36415; 80069; 81001; 83735; 85025; 85652; 86140; G0463

== ENCOUNTER 2020-08-16 21:33 | Inpatient (IN) | payer MEDICARE, BC, OTHER ==
[~2020-08-16] VITALS: Ht 160 cm; Wt 110.0 kg
[2020-08-16] MEDS ORDERED: LIDOCAINE 2% 5ML JELLY UROJET TOP ONE (21:50)
[2020-08-16 22:16] LABS: BASO # 0.1 10^3/uL (0.0-0.2); BASO % 0.4 % (0.0-1.0); EOS # 0.5 10^3/uL (0.0-0.5); EOS % 4.4 % (0.0-3.0); HEMATOCRIT 36.9 % (36.0-47.0); LYMPH # 2.1 10^3/uL (1.5-5.0); LYMPH % 17.5 % (24.0-44.0); MEAN CORPUSCULAR HEMOGLOBIN 29.6 pg (27.0-33.0); MEAN CORPUSCULAR HGB CONC 29.8 g/dl (32.0-36.5); MEAN CORPUSCULAR VOLUME 99.5 fl (80.0-96.0); MONO # 0.9 10^3/uL (0.0-0.8); MONO % 7.6 % (2.0-8.0); NEUTROPHILS # 8.2 10^3/uL (1.5-8.5); NEUTROPHILS % 69.6 % (36.0-66.0); PLATELET COUNT, AUTOMATED 191 10^3/uL (150-450); RED BLOOD COUNT 3.71 10^6/uL (4.00-5.40); WHITE BLOOD COUNT 11.7 10^3/uL (4.0-10.0)
[2020-08-16] MEDS ORDERED: LIDOCAINE 2% JELLY 5ML TUBE TOP ONE (22:20)
[2020-08-16] MEDS ORDERED: PIPERACILLIN/TAZOBACTAM SOD 3.375 GM in D5W MINI-BAG PLUS 50 ML IV ONE (22:30)
[2020-08-16] MEDS ORDERED: IPRATROPIUM 0.5MG/ALBUTEROL 2.5MG INH SOL UD 3ML (DUONEB) NEB ONE (22:50)
[2020-08-16] MEDS ORDERED: methylPREDNISolone 125MG 2ML VIAL IV ONE (22:50)
[2020-08-16 22:52] LABS: ALBUMIN 3.6 GM/DL (3.2-5.2); ALT/SGPT 19 U/L (12-78); BILIRUBIN,TOTAL 0.1 MG/DL (0.2-1.0); BLOOD UREA NITROGEN 11 MG/DL (7-18); CARBON DIOXIDE LEVEL 38 MEQ/L (21-32); CHLORIDE LEVEL 102 MEQ/L (98-107); CREATININE FOR GFR 0.73 MG/DL (0.55-1.30); ETHYL ALCOHOL (ETHANOL) < 0.003 % (0.000-0.010); GLOMERULAR FILTRATION RATE > 60.0 (>45); GLUCOSE, FASTING 104 MG/DL (70-100); SODIUM LEVEL 142 MEQ/L (136-145); TOTAL PROTEIN 6.8 GM/DL (6.4-8.2); TROPONIN I < 0.02 NG/ML (< 0.10)
--- NOTE | 2020-08-16 22:56 | REPVR ---
PROCEDURE INFORMATION: Exam: XR Chest Exam date and time: 08/16/2020 10:10 PM Age: 70 years old Clinical indication: Cough and dyspnea; Additional info: Dyspnea/cough TECHNIQUE: Imaging protocol: XR of the chest Views: 1 view. COMPARISON: CR PORTABLE CHEST X-RAY 06/13/2020 8:50 PM FINDINGS: Tubes, catheters and devices: Right hilar surgical clips are present. Lungs: Degree of lung inflation is normal. No evidence of pulmonary edema. Patchy bilateral peripheral lung opacities are present, concerning for pneumonia. Pleural spaces: No pleural effusion or pneumothorax. Heart/Mediastinum: Cardiac silhouette appears normal. No adenopathy or hilar mass. Bones/joints: Osseous structures show no concerning abnormality. Cervical and thoracic and upper lumbar spine fixation hardware is present. IMPRESSION: Concern for multifocal lung infiltrates. This could represent COVID-19 pneumonia. No evidence of pulmonary edema Electronically signed by: Rodrigo Chicas On 08/16/2020 22:56:09 PM
[2020-08-16] MEDS ORDERED: ISOVUE-370 76% 100ML VIAL As Ordered ONE (22:59)
[2020-08-17] VITALS (16 sets, daily range): BP systolic 110–136; BP diastolic 53–92
--- NOTE | 2020-08-17 00:44 | REPVR ---
PROCEDURE INFORMATION: Exam: CT Angiography Chest With Contrast Exam date and time: 08/17/2020 12:23 AM Age: 70 years old Clinical indication: Chest pain; Additional info: Pe study; Hypoxia, weakness TECHNIQUE: Imaging protocol: Computed tomographic angiography of the chest with contrast. 3D rendering (Not supervised by radiologist): MIP and/or 3D reconstructed images were created by the technologist. Radiation optimization: All CT scans at this facility use at least one of these dose optimization techniques: automated exposure control; mA and/or kV adjustment per patient size (includes targeted exams where dose is matched to clinical indication); or iterative reconstruction. Contrast material: ISO 370; Contrast volume: 75 ml; Contrast route: INTRAVENOUS (IV); COMPARISON: CT ANGIO CHEST 06/13/2020 9:20 PM FINDINGS: Pulmonary arteries: Peripheral pulmonary artery evaluation limited by cardiac and respiratory motion artifact. Central pulmonary arteries show no intraluminal defect suggestive of clot. Aorta: No thoracic aortic aneurysm or dissection. Lungs: Pulmonary vascular/interstitial pattern does not suggest active pulmonary edema. Atelectasis is present at the lung bases. No suspicious lung mass or air space process. Pleural spaces: No pleural effusion or pneumothorax. Heart: Heart is prominent in size and a small pericardial effusion is present. Lymph nodes: No enlarged mediastinal lymph nodes. Bones/joints: Spinal fixation hardware is present at multiple levels, with stable chronic fracture deformity just cephalad to the hardware Soft tissues: Unremarkable. IMPRESSION: 1. No evidence of acute, central pulmonary embolus. Peripheral pulmonary arterial evaluation is significantly limited by cardiac and respiratory motion artifact. 2. No other acute or concerning focal intrathoracic abnormality. 3. Prominent sized heart with small pericardial effusion but no evidence of pulmonary edema or tamponade. Electronically signed by: Rodrigo Chicas On 08/17/2020 00:45:01 AM
[2020-08-17] MEDS ORDERED: NS IV ONE (01:10)
[2020-08-17] MEDS ORDERED: NALOXONE INJ 0.4MG/1ML VIAL (J2310 PER 1MG) IV STA (01:27)
[2020-08-17] MEDS ORDERED: AMOX875T2 PO (01:28)
[2020-08-17] MEDS ORDERED: MED REC COMMENT (01:32)
[2020-08-17] MEDS ORDERED: MOM 30ML SUSPENSION UDC PO PRN (01:40)
[2020-08-17] MEDS ORDERED: MAALOX 30 ML SUSP *UDC PO PRN (01:40)
[2020-08-17] MEDS ORDERED: ALBUTEROL SULFATE 2.5 MG/0.5 ML INH NEB SOLN NEB PRN (01:40)
[2020-08-17 01:48] LABS: ABG HCO3 33.4 MEQ/L (22.0-26.0); ABG O2 SATURATION 96.4 % (95.0-99.0); ABG PARTIAL PRESSURE O2 84.2 mmHg (75.0-100.0); ABG TOTAL CO2 35.6 MEQ/L (23.0-31.0); ABG pH (ARTERIAL) 7.292 UNITS (7.350-7.450)
[2020-08-17 01:52] LABS: ABG PARTIAL PRESSURE CO2 70.7 mmHg (35.0-45.0)
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
[2020-08-17] MEDS ORDERED: LevoFLOXacin IV 750 MG in IV 1 EA IV SCH ×2 (03:00→21:00)
[2020-08-17] MEDS ORDERED: methylPREDNISolone 125MG 2ML VIAL IV SCH (03:00)
[2020-08-17 05:21] LABS: INR 0.96
[2020-08-17 06:36] LABS: ABG BASE EXCESS 6.6 (-2.0-2.0); ABG HCO3 35.5 MEQ/L (22.0-26.0); ABG O2 SATURATION 96.9 % (95.0-99.0); ABG PARTIAL PRESSURE O2 91.4 mmHg (75.0-100.0); ABG STANDARD HCO3 30.5 MEQ/L (22.0-26.0); ABG TOTAL CO2 37.9 MEQ/L (23.0-31.0); ABG pH (ARTERIAL) 7.279 UNITS (7.350-7.450)
[2020-08-17 06:39] LABS: ABG PARTIAL PRESSURE CO2 77.5 mmHg (35.0-45.0)
[2020-08-17] MEDS ORDERED: EXCEDRIN MIGRAINE TABLET PO PRN (06:50)
[2020-08-17] MEDS ORDERED: PERCOCET 5MG/325MG TAB PO PRN (06:50)
[2020-08-17] MEDS ORDERED: SUMAtriptan SUCCINATE 25 MG TAB PO PRN (06:50)
[2020-08-17] MEDS: IPRATROPIUM 0.5MG/ALBUTEROL 2.5MG INH SOL UD 3ML (DUONEB) NEB SCH ×4 (07:20→19:59)
[2020-08-17] MEDS ORDERED: FUROSEMIDE 40MG/4ML VIAL (J1940) IV ONE (07:35)
[2020-08-17] MEDS: LACTOBACILLUS ACIDOPHILUS CAP (BACID) PO SCH ×2 (08:46→17:17)
[2020-08-17] MEDS: PANTOPRAZOLE 40MG TAB (PROTONIX) PO SCH (08:46)
[2020-08-17] MEDS: ENOXAPARIN 40MG/0.4ML SYRINGE (J1650 PER 10MG) SC SCH (08:46)
[2020-08-17] MEDS: rOPINIRole 0.25 MG TAB(REQUIP) PO SCH ×3 (08:46→20:32)
[2020-08-17] MEDS ORDERED: OLANZapine 5 MG TAB PO SCH (09:00)
[2020-08-17] MEDS ORDERED: AUGMENTIN 875 MG TAB PO SCH (09:00)
[2020-08-17] MEDS ORDERED: GABAPENTIN 400MG CAP PO SCH (09:00)
[2020-08-17] MEDS ORDERED: PANTOPRAZOLE 40MG VIAL (C9113 PER 1) IV SCH (09:00)
[2020-08-17 11:34] LABS: ABG BASE EXCESS 9.6 (-2.0-2.0); ABG HCO3 37.8 MEQ/L (22.0-26.0); ABG O2 SATURATION 97.3 % (95.0-99.0); ABG PARTIAL PRESSURE O2 90.3 mmHg (75.0-100.0); ABG STANDARD HCO3 33.3 MEQ/L (22.0-26.0); ABG pH (ARTERIAL) 7.334 UNITS (7.350-7.450)
[2020-08-17 11:38] LABS: ABG PARTIAL PRESSURE CO2 72.7 mmHg (35.0-45.0)
--- NOTE | 2020-08-17 11:40 | IPNPDOC ---
Text Note Date of Service The patient was seen on 08/17/20. NOTE Subjective: No acute events reported overnight. Pt states that she is still feeling confused and "shaky". She does not remember yesterday's events that has led up to her admission. Objective: VITALS: See below. GENERAL: Morbidly obese. Pt is laying in bed with BIPAP in place. She appears confused. HEENT: NC/AT. EOMI. Conjunctiva and lids normal. CARDIOVASCULAR: Regular rate and rhythm. No murmurs, rubs or gallops appreciated. PULMONARY: Pt has BIPAP in place. No wheezes, rales, or rhonchi noted on exam. ABD: No abd tenderness, guarding, or rebound. Good bowel sounds to all four quadrants. EXTREMITY: 1+ pitting edema to the knees b/l, R>L. NEURO: Asterixis noted. Assessment/Plan: Pt is a 70 y.o. Female with COPD with hx of respiratory failure, CHINTAN, HFpEF (EF 65-70%), CKD stage 3, pulmonary hypertension, chronic back pain, hx of T9-L2 fusion complicated by post-op infection requiring chronic suppressive therapy and hx of lung cancer who presented to the ED on 08/16/20 due to increased weakne ss, AMS, jerking movements. She has been admitted due to acute respiratory failure with hypercapnia and metabolic encephalopathy. #Metabolic encephalopathy likely 2/2 polypharmacy - Pt currently takes multiple medications that cause increased confusion. Zyprexa, Oxycodone, and Gabapentin have all been placed on hold. - Pt is a poor historian. It is possible that pt has been taking additional do ses of her medications as pt has been complaining of worsening back pain. Pt was given Narcan in the ED and it did not help her sx. - As hypercapnia can cause AMS and increased confusion, metabolic encephalopathy may be 2/2 hypercapnia. pCO2 is 77.5. - Other causes of metabolic encephalopathy, such as uremic, hepatic, electrolyte abnormalities have been ruled out by labs. BUN, AST/ALT, CMP WNL. - Ammonia level is 30, WNL. Lactic acid WNL. - Will continue to monitor. #Acute respiratory failure with hypercapnia - Pt has hx of COPD as well as respiratory failure with hypercapnia. - CXR impression states possible pneumonia. However, when comparing her CXR from previous done in May, there does not seem to be much change so unlikely that pt has pneumonia. In addition, pt procalcitonin is WNL at <0.05. - Possibly 2/2 polypharmacy with Zyprexa, Gabapentin, and Oxycodone, which can c ause respiratory depression leading to hypercapnia. These meds have been put on hold. - Possibly 2/2 COPD exacerbation however, less likely due to no reported worsening of respiratory symptoms. Pt may be hypercapnic at baseline given COPD causing increased space. - Pt on BIPAP in ICU. - ABG showed acidosis at 7.28, pCO2 77.5, pO2 91.4, HCO3 35.5. Will continue to monitor ABGs. #Leukocytosis due to infection, possibly 2/2 spinal hardware infection vs spinal abscess - Pt initially presented with fever of 101.2 and leukocytosis of 11.7. Unknown source of infection. Initially presumed to be 2/2 pneumonia, however this is unlikely as pt procalcitonin is negative, unchanged CXR from previous done in May, and no complaints of any upper respiratory symptoms. - UA negative so UTI not likely to be a source of infection - Possibly 2/2 spinal hardware infection vs spinal abscess as pt has been complaining of increased back pain. Pt is on Amoxicillin at home as suppressive therapy as she has hx of infection post-op. Possible MRSA as a cause of infection so pt has been started on Vanco for coverage. - Blood culture and urine culture pending. - ESR, CRP ordered. - CT cervical and thoracic spine with contrast ordered to r/o spinal abscess/infection. - Will continue to monitor labs. #Chronic back pain with hx of T9-L2 fusion complicated by post-op hardware infection requiring chronic suppressive therapy - Pt has hx of chronic back pain with polypharmacy for pain control. Currently holding meds due to possible etiology of hypercapnia. - Acetaminophen ordered PRN for pain. - See above for r/o of possible spinal hardware infection vs abscess. #COPD - Pt has hx of COPD exacerbation causing respiratory failure with hypercapnia. - Pt currently on BIPAP. - Duoneb and nebulizer ordered. #HFpEF with EF of 65-70% - Last echo done in February 2020. Showed moderate-severe elevation of R ventricle systolic pressure at 50-55 mmHg. L ventricle ejection fraction was 65- 70%. Grade 1 ventricular diastolic dysfunction. Mild aortic valve sclerosis. - Appears to be compensated. - Will continue Lasix 40 mg PO daily. #Restless leg syndrome - Continue home medication Ropinirole 0.25 mg PO TID. #Migraine headache - Excedrin migraine PO PRN. #Obesity - BMI 43.5, complicating care. DVT Prophylaxis: Lovenox 40 mg SC Daily. Disposition: Pt BIPAP settings have been adjusted. Planing on repeat ABG at noon. Imaging pending to r/o spinal infection/abscess. Discharge pending clinical improvement. VS,Fishbone, I+O VS, Fishbone, I+O Laboratory Tests 08/16/20 22:00 Vital Signs Date Time Temp Pulse Resp B/P (MAP) Pulse Ox O2 Delivery O2 Flow Rate FiO2 08/17/20 08:01 35 08/17/20 08:00 98.1 98 17 114/56 (75) 99 NIPPV (BIPAP/CPAP) 08/16/20 22:46 4.0 I&O- Last 24 Hours up to 6 AM 08/17/20 06:00 Intake Total 3340 ml Output Total 375 ml Balance 2965 ml GME ATTESTATION GME ATTESTATION My faculty preceptor for this patient encounter was physically present during the encounter and was fully available. All aspects of the patient interview, examination, medical decision making process, and medical care plan development were reviewed and approved by the faculty preceptor. The faculty preceptor is aware and concurs with the plan as stated in the body of this note and will attest to such by his/her cosignature. ATTENDING NOTE I, Elvin Villarrael MD, have independently examined this patient and performed my own physical exam, as well as reviewed the documentation and edited where necessary. I have discussed in detail with the resident / student the findings and plan of treatment as documented by the resident / student and edited their note. I agree with their findings and treatment plan and have edited their documentation Molly VAN-3 Aug 17, 2020 10:50 ELVIN VILLARREAL MD Aug 19, 2020 09:54
[2020-08-17 12:13] LABS: C REACTIVE PROTEIN QUANTITATIV 0.33 MG/DL (0.00-0.30)
[2020-08-17] MEDS: VANCOMYCIN HCL 1,000 MG, VIAL MATE ADAPTER 1 EACH in NS 250 ML IV SCH ×2 (12:47→13:05)
--- NOTE | 2020-08-17 14:22 | CR ---
CONSULTATION DATE: 08/17/2020 CHIEF COMPLAINT: Myoclonic jerking movements and lethargy. History if obtained from the chart and other collaterals, as the patient is lethargic and unable to provide a clear history. HISTORY OF PRESENT ILLNESS: Ms. Zimmerman is a 70-year-old female with a past medical history of COPD with chronic hypoxemic and hypercarbic respiratory failure on nasal cannula oxygen supplementation, history of heart failure with severe pulmonary hypertension, prior history of lung cancer status post right upper lobectomy, and history of cervical spine issues with chronic pain and had previously been on chronic antibiotics for history of hardware infection in the past, who presented with complaints of myoclonic jerks and lethargy. On admission, the patient was found to be more hypoxic from her baseline, although she did improve with nasal cannula oxygen supplementation. She did have an ABG done as well, which showed acute on chronic hypercarbic respiratory failure. She was placed on BiPAP initially in the ED and transferred to the ICU. On BiPAP at settings of 15/8, her ABG has not improved and she actually had worsening pCO2 this morning. The patient continues to be lethargic and drowsy. She is somewhat arousable, but is unable to provide a clear history currently. She continues to report feeling confused, as well as "shaky" and does continue to have myoclonic jerks related to her hypercapnea. The patient also reportedly had some complaints of an occasional cough, which is chronic, but had not worsened. She also denied noticing any fevers or chills and had not had any increased ingestion of her chronic pain medications. Of note patient does follow with Dr. Holliday in pulmonary clinic for her sleep apnea. Given prior history and hospitalizations of acute on chronic hypercarbic respiratory failure and especially with her ongoing narcotic use despite being non compliant with pressure therapy at night she has been counseled extensively on the need for using CPAP or BIPAP at night and has continued to refuse treatment. PAST MEDICAL AND SURGICAL HISTORY: 1. COPD with chronic hypoxemic respiratory failure on nasal cannula oxygen supplementation. 2. CHINTAN noncompliant with CPAP. 3. Heart failure with preserved EF. 4. Severe pulmonary hypertension. 5. History of mild tricuspid regurgitation. 6. GERD. 7. CKD. 8. Restless leg syndrome. 9. Depression. 10. Anxiety. 11. History of lung cancer stage I status post right upper lobectomy. 12. History of cervical spine fusion, as well as thoracic fusion with laminectomy and decompression surgery in the past. She is also on chronic antibiotic therapy for hardware infection as an outpatient. 13. Questionable history of paroxysmal atrial fibrillation. 14. Cholecystectomy. 15. section. SOCIAL HISTORY: The patient is a former smoker, has an 84-pack year history, and quit in 2009. She lives with her . FAMILY HISTORY: Father with history of Parkinson's. Mother was history of heart disease. HOME MEDICATIONS: 1. Augmentin. 2. Atorvastatin. 3. Ferrous sulfate. 4. Advair. 5. Furosemide 40 mg daily. 6. Gabapentin. 7. Acidophilus. 8. Latanoprost. 9. Olanzapine. 10. Pantoprazole. 11. Potassium chloride. 12. Ropinirole. 13. Tizanidine. 14. Albuterol p.r.n. 15. Excedrin p.r.n. 16. Oxycodone/acetaminophen p.r.n. 17. Sumatriptan p.r.n. ALLERGIES: BENZODIAZEPINE, FENTANYL, MORHPINE, PREGABALIN. PHYSICAL EXAMINATION: VITAL SIGNS: T-max 101.2, T-current 98, pulse 100, respiratory rate 12, blood pressure 126/60, O2 sat 97% on 35% FiO2. INTAKE AND OUTPUT: In 2.5 liters, out 515 mL. GENERAL: The patient is a morbidly obese female who is lying in the bed, appears lethargic, and is arousable briefly and able to give somewhat answers although confused. She does not appear to be tachypneic and is not using any accessory muscles for respiration. HEENT: Normocephalic, atraumatic. Pupils are reactive to light. Moist mucous membranes noted. Mallampati 4. NECK: Supple. Trachea is midline. Unable to clearly evaluate JVD due to neck habitus. CARDIOVASCULAR: Tachycardic. Regular rate and rhythm. Normal S1, S2. Somewhat distant heart sounds. Unable to clearly appreciate murmurs. PULMONARY: Diminished breath sounds bilaterally with no significant rhonchi or wheezing. Few crackles at the bases. ABDOMEN: Morbidly obese, soft, and nontender to palpation. No palpable masses. EXTREMITIES: There is +1 to 2 pitting edema in the bilateral lower extremities. LABORATORY DATA: WBC 11.7, hemoglobin 11.0, platelets 191,000. Chemistries: Sodium 141, potassium 4.0, chloride 102, bicarb 38, BUN 11, creatinine 0.74, glucose 104. Lactic acid 1.2. AST and ALT 9 and 19. Alkaline phosphatase is 89. Troponins negative. Ammonia is 30. CRP 0.33. BNP is 374. Albumin 3.6. Procalcitonin is less than 0.05. INR 0.96. ABG this morning on BiPAP pH of 7.279, pCO2 of 77.5, pO2 of 91.4. IMAGING DATA: CTA on 08/16/2020, shows no evidence of PE. There are small lung volumes noted and the patient is status post right upper lobectomy. There is atelectasis in the lower lobes bilaterally. There is some cardiomegaly and small pericardial effusion noted. There is no focal opacities. There is some respiratory motion artifact noted. IMPRESSION: Ms. Zimmerman is a 70-year-old female with a past medical history of obstructive sleep apnea (CHINTAN) noncompliant with CPAP, chronic obstructive pulmonary disease (COPD) with chronic hypoxemic respiratory failure and chronic hypercarbic respiratory failure, history of heart failure with preserved ejection fraction (EF), and pulmonary hypertension with prior history of nicotine dependence and lung cancer status post right upper lobectomy with a history of multiple cervical and thoracic surgeries with chronic hardware infection on chronic antibiotic suppressive therapy, who presented to the ED with complaints of lethargy and myoclonic jerking movements. The patient was found to be in acute on chronic hypoxemic and hypercarbic respiratory failure and was placed on BiPAP in the intensive care unit (ICU). Her arterial blood gas (ABG) this morning on BiPAP did not show any significant improvement and in fact, had some slight worsening of her hypercarbia. The patient was also febrile on admission and did have leukocytosis with concern for sepsis. 1. Acute on chronic hypercarbic and hypoxemic respiratory failure. The patient does have a history of COPD, as well as heart failure and pulmonary hypertension. She denies any worsening coughing or wheezing and on exam clinically, does not have any significant wheezing to suggest an acute COPD exacerbation. She does have some pitting edema in her lower extremities and her BNP was minimally elevated only. On imaging, she does not appear to have significant pulmonary vascular congestion to contribute to her acute decompensation. Her worsening hypoxic and hypercarbic respiratory failure then may be in the setting of sepsis and infection. She did not appear to have any acute infiltrates on her CT angiogram to suggest pneumonia with more chronic appearing changes of atelectasis and some volume loss. Patient is also on chronic opioids and other sedating medications and with her history of non compliance to pressure therapy at risk for acute decompensation. - The patient was on BiPAP initially at settings of 15/8 with a respiratory rate of 12. She did not appear to be over-breathing on the BiPAP and so, her respiratory rate was increased to 16. We also changed her to average volume-assured pressure support (AVAPS) mode on the BiLevel with a target tidal volume of 440 mL and inspiratory positive airway pressure (IPAP) range of 15 to 25 with an expiratory positive airway pressure (EPAP) of 10. We will also wean down her FiO2 as tolerated to maintain O2 sat of 88% to 92%, given her chronic hypercarbia. - Can continue with her home inhalers of Advair, as well as Albuterol nebulized bronchodilator. - Patient's repeat ABG on the AVAPS mode did show improvement with a repeat pH of 7.334, pCO2 of 72.7, and pO2 of 90.3. Will continue to monitor and can repeat an ABG this evening while on the BiLevel. - patient has had prior extensive discussions about morbidity and mortality of untreated sleep apnea particularly given her opioid use and potential risk for worsening respiratory failure and even . At her last visit with Dr. Holliday in July she was still refusing the sleep titration study that was ordered. 2. Encephalopathy. Likely in the setting of her hypercarbia, as well as sepsis. - The patient was initially given Narcan given she is on opioids as an outpatient. She did not have any change with the Narcan. Her mental status does appear to be improving with improvement in her ABG. - Will continue to monitor her mental status, and will hold sedating medications at this time including her gabapentin. 3. Sepsis. Initially was thought to be in the setting of pneumonia. On CT, however, she appeared to have more atelectasis and no focal consolidation. She does have a history chronically of a chronic hardware infection on suppressive antibiotic therapy with Augmentin as an outpatient. Given her history, there is concern for possible worsening hardware infection or bacteremia contributing to her fever and leukocytosis. Will follow up the results of her blood culture. Will broaden her antibiotics to cover for methicillin-resistant Staphylococcus aureus (MRSA) and as she has been on Augmentin chronically and there is concern for possible resistance, would also consider broadening her to Zosyn or meropenem instead. Can likely discontinue azithromycin as she does not appear clinically to have an acute COPD exacerbation or pneumonia. - Would consider echocardiogram or transesophageal echocardiogram (RANDY) given her history of some chronic hardware infection; particularly, if she is noted to have any bacteremia. - Given her sepsis, the patient's Lasix is on hold; although, she does have a history of heart failure, pulmonary hypertension, and does have some pitting edema. Will need to closely monitor her volume status. She was already given IV fluid repletion and so would hold off on further IV fluids for now. Her lactic acid was not elevated. Deep vein thrombosis (DVT) prophylaxis with Lovenox. Code status: FULL CODE. Total critical care time spent not including any procedures approx 1 hr and 35 mins MTDD
[2020-08-17] MEDS ORDERED: FUROSEMIDE 20MG/2ML VIAL (J1940) IV ONE (14:35)
[2020-08-17] MEDS: ACETAMINOPHEN TAB 650MG DOSE (2X325MG) PO PRN ×2 (15:11→20:32)
[2020-08-17 15:45] LABS: ABG BASE EXCESS 6.9 (-2.0-2.0); ABG HCO3 33.3 MEQ/L (22.0-26.0); ABG O2 SATURATION 99.1 % (95.0-99.0); ABG PARTIAL PRESSURE CO2 56.2 mmHg (35.0-45.0); ABG PARTIAL PRESSURE O2 138.1 mmHg (75.0-100.0); ABG STANDARD HCO3 30.8 MEQ/L (22.0-26.0)
[2020-08-17] MEDS: ADVAIR HFA 230/21MCG INHALER INH SCH ×2 (15:54→19:59)
[2020-08-17] MEDS ORDERED: PERCOCET 5MG/325MG TAB PO ONE (17:00)
[2020-08-17] MEDS: PIPERACILLIN/TAZOBACTAM SOD 3.375 GM in D5W MINI-BAG PLUS 50 ML IV SCH ×2 (17:17→22:30)
--- NOTE | 2020-08-17 17:34 | ECGEPIP ---
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
[2020-08-17] MEDS: LATANOPROST 0.005% OPHTH SOLN 2.5 ML OU SCH (20:32)
[2020-08-17] MEDS ORDERED: AZITHROMYCIN INJ 500 MG, VIAL MATE ADAPTER 1 EACH in NS 250 ML IV SCH (23:00)
[2020-08-17] MEDS ORDERED: ISOVUE-370 76% 100ML VIAL As Ordered ONE (23:43)
[2020-08-18] VITALS (13 sets, daily range): BP systolic 136–178; BP diastolic 65–98
[2020-08-18] MEDS ORDERED: VANCOMYCIN HCL 750 MG, VIAL MATE ADAPTER 1 EACH in NS 250 ML IV SCH ×3
[2020-08-18] MEDS ORDERED: VANCOMYCIN HCL 500 MG in D5W MINI-BAG PLUS 100 ML IV SCH (01:00)
--- NOTE | 2020-08-18 01:31 | REPVR ---
PROCEDURE INFORMATION: Exam: CT Cervical Spine With Contrast Exam date and time: 08/17/2020 10:50 AM Age: 70 years old Clinical indication: Neck pain; Additional info: With contrast. Rule out abscess TECHNIQUE: Imaging protocol: Computed tomography images of the cervical spine with intravenous contrast. Radiation optimization: All CT scans at this facility use at least one of these dose optimization techniques: automated exposure control; mA and/or kV adjustment per patient size (includes targeted exams where dose is matched to clinical indication); or iterative reconstruction. Contrast material: ISO; Contrast volume: 100 ml; Contrast route: INTRAVENOUS (IV); COMPARISON: No relevant prior studies available. 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 Status post anterior fusion from C4-C7. No fracture or compression. Discs/Spinal canal/Neural foramina: There are early degenerative changes in the apophyseal joints bilaterally at C3-C4 and the left apophyseal joint at C2-C3. No significant spinal or foraminal stenosis. Lungs: Lung apices are normal. Vasculature: There are retropharyngeal carotid arteries. Soft tissues: No abscess or collection is seen. IMPRESSION: 1. Status post anterior fusion from C4-C7. 2. Early degenerative changes of apophyseal joints at C3-C4 and to a lesser degree C2-C3. No significant spinal or foraminal stenosis throughout and no acute fracture or subluxation. 3. No abscess or collection is seen. Electronically signed by: Osiel Leyva On 08/18/2020 01:30:43 AM
--- NOTE | 2020-08-18 01:35 | REPVR ---
PROCEDURE INFORMATION: Exam: CT Thoracic Spine With Contrast Exam date and time: 08/17/2020 10:50 AM Age: 70 years old Clinical indication: Pain in thoracic spine; Additional info: With contrast. Rule out abscess TECHNIQUE: Imaging protocol: Computed tomography images of the thoracic spine with intravenous contrast. Radiation optimization: All CT scans at this facility use at least one of these dose optimization techniques: automated exposure control; mA and/or kV adjustment per patient size (includes targeted exams where dose is matched to clinical indication); or iterative reconstruction. Contrast material: ISO; Contrast volume: 100 ml; Contrast route: INTRAVENOUS (IV); COMPARISON: CT Spine,thoracic w/o contrast 04/01/2015 5:03 PM FINDINGS: Vertebrae: Cervicothoracic levoscoliosis and lower lumbar dextroscoliosis. Anterior fusion of the anterior cervical spine to the C7 level. Discs/Spinal canal/Neural foramina: Posterior vertical rods with pedicular screws at T10 and T11 and posterior hooks on the posterior elements of T9. There is moderate sclerotic compression of T9 which appears to be chronic. There is a strut through the central body of T12 with evidence of pedicular screws at L1. No acute fracture or compression. No spinal or foraminal stenosis. Soft tissues: Unremarkable. No collection or abscess is seen. IMPRESSION: 1. Anterior fusion of the lower cervical spine to the C7 level. 2. Thoracolumbar fusion extending caudally from T10. 3. Moderate wedge compression of T10 which appears to be chronic. 4. Otherwise negative thoracic spine. No abscess is seen. No acute fracture or subluxation. Electronically signed by: Osiel Leyva On 08/18/2020 01:35:58 AM
[2020-08-18] MEDS: IPRATROPIUM 0.5MG/ALBUTEROL 2.5MG INH SOL UD 3ML (DUONEB) NEB SCH ×4 (01:39→20:53)
[2020-08-18 04:25] LABS: HEMATOCRIT 32.8 % (36.0-47.0); HEMOGLOBIN 10.3 g/dl (12.0-15.5); MEAN CORPUSCULAR HGB CONC 31.4 g/dl (32.0-36.5); MEAN CORPUSCULAR VOLUME 95.6 fl (80.0-96.0); PLATELET COUNT, AUTOMATED 182 10^3/uL (150-450); RED BLOOD COUNT 3.43 10^6/uL (4.00-5.40); WHITE BLOOD COUNT 13.5 10^3/uL (4.0-10.0)
[2020-08-18] MEDS: PIPERACILLIN/TAZOBACTAM SOD 3.375 GM in D5W MINI-BAG PLUS 50 ML IV SCH ×2 (04:35→10:42)
[2020-08-18 04:59] LABS: BLOOD UREA NITROGEN 20 MG/DL (7-18); CALCIUM LEVEL 8.5 MG/DL (8.8-10.2); CARBON DIOXIDE LEVEL 36 MEQ/L (21-32); CHLORIDE LEVEL 102 MEQ/L (98-107); CREATININE FOR GFR 0.71 MG/DL (0.55-1.30); GLOMERULAR FILTRATION RATE > 60.0 (>45); GLUCOSE, FASTING 101 MG/DL (70-100); POTASSIUM SERUM 3.4 MEQ/L (3.5-5.1); SODIUM LEVEL 142 MEQ/L (136-145)
[2020-08-18 06:18] LABS: ABG BASE EXCESS 9.3 (-2.0-2.0); ABG HCO3 34.8 MEQ/L (22.0-26.0); ABG O2 SATURATION 97.4 % (95.0-99.0); ABG PARTIAL PRESSURE CO2 52.4 mmHg (35.0-45.0); ABG PARTIAL PRESSURE O2 89.6 mmHg (75.0-100.0); ABG STANDARD HCO3 33.1 MEQ/L (22.0-26.0); ABG TOTAL CO2 36.4 MEQ/L (23.0-31.0)
[2020-08-18] MEDS ORDERED: POTASSIUM CHLORIDE 10 MEQ SR TABLET PO ONE (08:00)
[2020-08-18] MEDS: PANTOPRAZOLE 40MG TAB (PROTONIX) PO SCH (08:06)
[2020-08-18] MEDS: LACTOBACILLUS ACIDOPHILUS CAP (BACID) PO SCH ×2 (08:06→19:02)
[2020-08-18] MEDS: ENOXAPARIN 40MG/0.4ML SYRINGE (J1650 PER 10MG) SC SCH (08:06)
[2020-08-18] MEDS: rOPINIRole 0.25 MG TAB(REQUIP) PO SCH ×3 (08:06→20:47)
[2020-08-18] MEDS: FUROSEMIDE 40 MG TAB PO SCH (08:06)
--- NOTE | 2020-08-18 10:50 | IPNPDOC ---
Text Note Date of Service The patient was seen on 08/18/20. NOTE Subjective: No acute events reported overnight. Pt states that she is feeling slightly better. She does not remember why she was admitted to the hospital. She reports that she has not been having any increase in back pain and has not been taking any additional pain meds. Denies any abd pain, diarrhea, fever, or upper respiratory sx prior to admission. She states that Dr. Holliday is her counter tacker that she takes care of her COPD, lung CA, and emphysema. Last a ppointment was two weeks ago and she has f/u appointment every 6 months. She states that she has been told that she needed to be placed on BIPAP or CPAP in the past but has not been able to get a sleep study done yet. RN reports that pt had some delirium around 4am today but daughter reports that this is nl for pt while in the hospital. Pt is alert and oriented to person, place, and year. She does not know what the specific day of the week it is. Her mental status seems to have improved as pt is able to answer questions and keep a conversation. Objective: VITALS: See below. GENERAL: Morbidly obese. Pt is laying in bed with BIPAP in place, later removed and placed on nasal canula during the exam. HEENT: NC/AT. EOMI. Conjunctiva and lids normal. CARDIOVASCULAR: Regular rate and rhythm. No murmurs, rubs or gallops appreciated. PULMONARY: Clear to auscultation. Good air movement. No wheezes, rales, or rhonchi noted on exam. ABD: No abd tenderness, guarding, or rebound. Good bowel sounds to all four quadrants. EXTREMITY: 1+ pitting edema to the knees b/l, R>L. NEURO: Pt is able to hold a conversation and answer questions when asked. Alert and oriented to person, place and year. She does not know what day of the week it is. Assessment/Plan: Pt is a 70 y.o. Female with COPD with hx of respiratory failure, CHINTAN, HFpEF (EF 65-70%), CKD stage 3, pulmonary hypertension, chronic back pain, hx of T9-L2 fusion complicated by post-op infection requiring chronic suppressive therapy and hx of lung cancer who presented to the ED on 08/16/20 due to increased weakness, AMS, jerking movements. She has been admitted due to acute respiratory failure with hypercapnia and metabolic encephalopathy. #Metabolic encephalopathy likely 2/2 polypharmacy - Pt currently takes multiple medications that cause increased confusion. Zyprexa, Oxycodone, and Gabapentin have all been placed on hold. Planning on decreasing the dosage of these medications today and continuing decreased doses at discharge. - As hypercapnia can cause AMS and increased confusion, metabolic encephalopathy may be 2/2 hypercapnia. pCO2 was 77.5 yesterday but has since decreased ti 52.4 since BIPAP settings were changed yesterday. Her AMS is doing much better today as pt is alert and oriented. She is able to answer questions without difficulty and is able to keep a conversation. - Other causes of metabolic encephalopathy, such as uremic, hepatic, electrolyte abnormalities have been ruled out by labs. BUN, AST/ALT, CMP WNL. - Ammonia level is 30, WNL. Lactic acid WNL. - Will continue to monitor. Pt will be downgraded to PCU. #Acute respiratory failure with hypercapnia - Pt has hx of COPD as well as respiratory failure with hypercapnia. - CXR impression states possible pneumonia. However, when comparing her CXR from previous done in May, there does not seem to be much change so unlikely that pt has pneumonia. In addition, pt procalcitonin is WNL at <0.05. - Possibly 2/2 polypharmacy with Zyprexa, Gabapentin, and Oxycodone, which can cause respiratory depression leading to hypercapnia. These meds have been put on hold and will be decreased. - Possibly 2/2 COPD exacerbation however, less likely due to no reported worsening of respiratory symptoms. Pt may be hypercapnic at baseline given COPD causing increased space. - Pt is on BIPAP in ICU and is doing much better today. Pt was placed on nasal canula during examination and was able to keep a conversation without difficulty. Will have a trial bedside BIPAP and downgrade pt to PCU to see how pt does overnight. - ABG has improved. She is no longer acidotic (pH 7.44) and pCO2 has decreased to 52.4. - Will possibly get an overnight pulse ox done to see if it would be possible to obtain a BIPAP machine for pt at the time of discharge. #Polypharmacy - Pt is on many medications for her chronic back pain. She takes Gabapentin 400 mg TID, Percocet 1 tab PO Q4H PRN, Zyprexa 5mg PO BID, and Tizanidine 4 mg PO QID. During previous admissions, these medications have been held leading to resolution of pt sx. Seeing as all these medications can cause respiratory depression, increased confusion, and is the likely cause of pt repeated admissions, will plan on decreasing the medication doses here. - Gabapentin will be decreased to 100 mg TID, Percocet will be decreased to 1 tab BID, and Tizanidine will be stopped. Will start these new doses today to see how patient does with pain. If pt tolerating these new doses, will continue at the time of discharge. #SIRS - Pt initially presented with fever of 101.2 and leukocytosis of 11.7. Unknown source of infection. Initially presumed to be 2/2 pneumonia, however this is unlikely as pt procalcitonin is negative, unchanged CXR from previous done in May, and no complaints of any upper respiratory symptoms. - Pt has been on solumedrol so leukocytosis is possibly from recent steroid use. - UA negative so UTI not likely to be a source of infection - Spinal hardware infection vs spinal abscess has been ruled out after CT C and T spine. Results show no abscess or acute fx or subluxation. Pt is on Amoxicillin at home as suppressive therapy as she has hx of infection post-op. MRSA screen has returned negative so will discontinue vancomycin and will place pt on home Amoxicillin. - Blood culture and urine culture pending. - ESR slightly elevated at 45, CRP also slightly elevated at 0.33, this may be a chronic elevation. Obtained outside records, CRP is actually trending down from 0.54 to 0.33. - Will continue to monitor labs. #Chronic back pain with hx of T9-L2 fusion complicated by post-op hardware infec tion requiring chronic suppressive therapy - Pt has hx of chronic back pain with polypharmacy for pain control. Currently holding meds due to possible etiology of hypercapnia. - Acetaminophen ordered PRN for pain. - Spinal hardware infection vs spinal abscess has been ruled out after CT C and T spine. Results show no abscess or acute fx or subluxation. Pt is on Amoxicillin at home as suppressive therapy as she has hx of infection post-op. MRSA screen has returned negative so will discontinue vancomycin and will place pt on home Amoxicillin. #COPD - Pt has hx of COPD exacerbation causing respiratory failure with hypercapnia. - Pt currently on BIPAP in ICU. Planning on starting pt on table top BIPAP and downgrading pt to PCU as she is doing much better. - Duoneb and nebulizer ordered. #HFpEF with EF of 65-70% - Last echo done in February 2020. Showed moderate-severe elevation of R ventricle systolic pressure at 50-55 mmHg. L ventricle ejection fraction was 65- 70%. Grade 1 ventricular diastolic dysfunction. Mild aortic valve sclerosis. - Appears to be compensated. - Will continue Lasix 40 mg PO daily. #Restless leg syndrome - Continue home medication Ropinirole 0.25 mg PO TID. #Migraine headache - Excedrin migraine PO PRN. #Obesity - BMI 43.5, complicating care. DVT Prophylaxis: Lovenox 40 mg SC Daily. Disposition: Planning on placing pt on table top BIPAP and downgrading to PCU. Will decrease pt chronic pain medication doses and see if pt is able to tolerate these new doses. Planning on seeing how pt does overnight with these new changes and possibly discharging tomorrow if there are no acute events overnight. VS,Fishbone, I+O VS, Fishbone, I+O Laboratory Tests 08/18/20 04:09 Vital Signs Date Time Temp Pulse Resp B/P (MAP) Pulse Ox O2 Delivery O2 Flow Rate FiO2 08/18/20 07:46 25 08/18/20 06:00 81 155/67 (96) 97 NIPPV (BIPAP/CPAP) 08/18/20 04:00 99.3 18 08/17/20 22:00 1.0 I&O- Last 24 Hours up to 6 AM 08/18/20 06:00 Intake Total 2140 ml Output Total 2575 ml Balance -435 ml GME ATTESTATION GME ATTESTATION My faculty preceptor for this patient encounter was physically present during the encounter and was fully available. All aspects of the patient interview, examination, medical decision making process, and medical care plan development were reviewed and approved by the faculty preceptor. The faculty preceptor is aware and concurs with the plan as stated in the body of this note and will attest to such by his/her cosignature. Molly VAN-3 Aug 18, 2020 09:25
[2020-08-18] MEDS ORDERED: PERCOCET 5MG/325MG TAB PO PRN (11:05)
[2020-08-18] MEDS: ADVAIR HFA 230/21MCG INHALER INH SCH ×2 (11:23→20:53)
[2020-08-18] MEDS: OLANZapine 5 MG TAB PO SCH ×2 (12:47→20:48)
[2020-08-18] MEDS: AUGMENTIN 875 MG TAB PO SCH ×2 (12:47→20:48)
[2020-08-18] MEDS: GABAPENTIN 100 MG CAP PO SCH ×2 (14:42→21:49)
--- NOTE | 2020-08-18 14:52 | CCN ---
PULMONARY CRITICAL CARE NOTE DATE: 08/18/2020 SUBJECTIVE: Patient was seen and examined this morning during bedside rounds. Yesterday, patient was changed from her previous bilevel positive airway pressure (BiPAP) settings to AVAPS mode on the BiPAP and did have improvement in her arterial blood gasses (ABGs) as well as her mental status. Later in the evening, she was able to be taken off of the BiPAP for breaks for eating and placed back on overnight, which she did wear throughout the night. This morning, patient is awake and alert and at her baseline mental status. She denies any significant shortness of breath or dyspnea currently. She has not had any significant cough besides an occasional chronic cough. She denies noticing any fever or chills and has not had any abdominal pain. No nausea or vomiting. She does have chronic back pain, which she states is unchanged. She also denied noticing any worsening lower extremity edema, although she does admit this morning that her legs are somewhat more swollen than previous. At home, she did not feel that they had been worsening in terms of the swelling. OBJECTIVE: VITAL SIGNS: Temperature 99.3, pulse 81, respirations 18, blood pressure 155/67, oxygen saturation 97% on 25% FiO2. INTAKE AND OUTPUT: In 5.0 liters, out 2.9 liters. GENERAL: Patient is a morbidly obese female who is sitting in the chair. She is awake and alert and answering questions appropriately. She does not appear to be using any accessory muscles for respiration and does not appear to be tachypneic. HEENT: Normocephalic, atraumatic. Pupils react to light bilaterally. Moist mucous membranes. Mallampati 4. NECK: Supple. Trachea is midline. Unable to clearly evaluate jugular venous distention (JVD) due to neck habitus. CARDIOVASCULAR: Regular rate and rhythm. Normal S1, S2. Somewhat distant heart sounds. Unable to clearly appreciate murmurs. PULMONARY: Decreased breath sounds bilaterally with occasional crackles and coarse rhonchi at the bases. ABDOMEN: Morbidly obese, soft and nontender to palpation. There are no palpable masses. EXTREMITIES: There is 1+ pitting edema in the bilateral lower extremities, although right is slightly more than the left. LABORATORY DATA: WBC 13.5, hemoglobin 10.3, platelets 182. Chemistry: Sodium 142, potassium 3.4, chloride 102, bicarbonate 36, BUN 20, creatinine 0.71, glucose 101. Arterial blood gas (ABG): pH 7.440, pCO2 52.4, pO2 52.4, pO2 89.6. IMAGING: CT of her neck and thoracic spine showed prior surgical fusion and some degenerative changes, but no abscess or fluid collection. There was a wedge compression of the T10, which is chronic. ASSESSMENT AND PLAN: Ms. Zimmerman is a 70-year-old female with a past medical history of obstructive sleep apnea (CHINTAN), noncompliant with continuous positive airway pressure (CPAP), chronic obstructive pulmonary disease (COPD) with chronic hypoxemic respiratory failure and chronic hypercarbic respiratory failure, history of heart failure with preserved ejection fraction (EF), pulmonary hypertension, history of lung cancer status post right upper lobectomy with history as well of multiple cervical and thoracic surgeries with reported chronic antibiotic suppressive therapy who presented with lethargy and myoclonic jerking movements. Patient was found to have acute on chronic hypoxemic and hypercarbic respiratory failure. She was placed on BiPAP and transferred to the intensive care unit (ICU). 1. Acute on chronic hypercarbic and hypoxemic respiratory failure. Patient has longstanding history of prior admissions for acute on chronic hypercarbic and hypoxemic respiratory failure and usually requires treatment with bilevel positive pressure therapy. She is also chronically on various pain medications, including opioids and other sedating medications, which, with her history of noncompliance to pressure therapy, puts her at risk for acute decompensation. She also, with her history of heart failure and pulmonary hypertension, is at risk as well for decompensation and she does admit to frequent dietary noncompliance, which can contribute to heart failure and chronic hypercarbia. She does have some increased pitting edema in her lower extremities on exam. She did not have any significant wheezing or coughing initially to suggest an acute COPD exacerbation. She also did not have any findings on imaging to suggest pneumonia. a. Patient's ABG this morning does appear improved. She was on AVAPS mode with the bilevel device overnight, but we will switch her to tabletop BiPAP with the settings of 18/10 and 1-2 liters of oxygen bleed as needed to maintain her oxygen saturation of 88-92%. b. Patient has had discussions with her groover and striper operator, Dr. Holliday, recently with her and her extensively about the morbidity and mortality of untreated sleep apnea, particularly given her previous hospitalization history, as well as her opioid use and other medication use. She was informed about the risk for worsening respiratory failure and even and at her last visit, patient and her had been resistant to further sleep testing, in particular, titration study, to get her on BiPAP. Given her history of noncompliance and the fact that her machine had been previously been taken away due to noncompliance, she would need repeat sleep testing, including diagnostic and titration study before she is able to get a BiPAP machine. There is a possibility of possible home ventilator with Trilogy; however, as she has not been documented to fail BiPAP or CPAP, it would be difficult to get her the Trilogy at this point. We did have the discussion again with the patient and she appears somewhat more receptive now to wearing BiPAP and following up on sleep testing that has already been ordered by her groover and striper operator. c. Will continue with her home inhalers of Advair as well as albuterol for nebulized bronchodilator. d. Will repeat ABG in the morning. 2. Encephalopathy. Likely in the setting of her hypercarbia as well as with her medication history. There is concern for possible sepsis as well. a. Patient's sedating medications are on hold currently. She will need adjustments as well prior to her discharge. 3. Sepsis. Initially thought to be in the setting of pneumonia. Her CT, however, had findings more of atelectasis with no focal consolidation to suggest pneumonia. She does have history of possible chronic hardware infection and has been followed with infectious disease and is on suppressive antibiotic therapy with Augmentin as an outpatient. Her CT of the spine did not show any significant abscess or fluid collection. She did have a fever initially as well as leukocytosis. She was on broader spectrum antibiotics given concern for possible methicillin-resistant Staphylococcus aureus (MRSA) given her hardware. She was de-escalated to Augmentin again, given her procalcitonin was not significantly elevated. a. Will follow up the results of her blood culture. If she has any evidence of bacteremia, she would need an echocardiogram or perhaps a transesophageal echocardiogram (RANDY). b. Patient was restarted on her Lasix, as her lactic acid was normal and her blood pressures have remained stable. c. Treatment for possible sepsis and the rest of her home medications as per primary team. Deep venous thrombosis (DVT) prophylaxis with Lovenox. CODE STATUS: FULL CODE. Total critical care time spent excluding any procedures approximately 35 minutes. Please do not hesitate to call is any further questions or concerns. Patient can follow up with Dr. Holliday as an outpatient after discharge. DARELL
[2020-08-18] MEDS: LATANOPROST 0.005% OPHTH SOLN 2.5 ML OU SCH (20:48)
[2020-08-19] VITALS: BP 142/66
[2020-08-19] MEDS: IPRATROPIUM 0.5MG/ALBUTEROL 2.5MG INH SOL UD 3ML (DUONEB) NEB SCH ×2 (02:05→07:32)
[2020-08-19 04:00] VITALS: BP 137/77
[2020-08-19 05:56] LABS: ABG BASE EXCESS 7.5 (-2.0-2.0); ABG HCO3 32.3 MEQ/L (22.0-26.0); ABG O2 SATURATION 98.2 % (95.0-99.0); ABG PARTIAL PRESSURE CO2 46.8 mmHg (35.0-45.0); ABG PARTIAL PRESSURE O2 105.4 mmHg (75.0-100.0); ABG STANDARD HCO3 31.3 MEQ/L (22.0-26.0); ABG TOTAL CO2 33.8 MEQ/L (23.0-31.0); ABG pH (ARTERIAL) 7.457 UNITS (7.350-7.450)
[2020-08-19] MEDS: GABAPENTIN 100 MG CAP PO SCH (06:46)
[2020-08-19] MEDS: ADVAIR HFA 230/21MCG INHALER INH SCH (07:32)
[2020-08-19 07:58] LABS: HEMATOCRIT 33.9 % (36.0-47.0); HEMOGLOBIN 10.7 g/dl (12.0-15.5); MEAN CORPUSCULAR HEMOGLOBIN 29.9 pg (27.0-33.0); MEAN CORPUSCULAR HGB CONC 31.6 g/dl (32.0-36.5); MEAN CORPUSCULAR VOLUME 94.7 fl (80.0-96.0); PLATELET COUNT, AUTOMATED 194 10^3/uL (150-450); RED BLOOD COUNT 3.58 10^6/uL (4.00-5.40); WHITE BLOOD COUNT 10.6 10^3/uL (4.0-10.0)
[2020-08-19 08:00] VITALS: BP 129/90
[2020-08-19 08:20] LABS: BLOOD UREA NITROGEN 14 MG/DL (7-18); CALCIUM LEVEL 8.8 MG/DL (8.8-10.2); CARBON DIOXIDE LEVEL 34 MEQ/L (21-32); CHLORIDE LEVEL 107 MEQ/L (98-107); CREATININE FOR GFR 0.56 MG/DL (0.55-1.30); GLOMERULAR FILTRATION RATE > 60.0 (>45); GLUCOSE, FASTING 93 MG/DL (70-100); MAGNESIUM LEVEL 1.9 MG/DL (1.8-2.4); POTASSIUM SERUM 3.1 MEQ/L (3.5-5.1); SODIUM LEVEL 145 MEQ/L (136-145)
[2020-08-19] MEDS ORDERED: POTASSIUM CHLORIDE 10 MEQ SR TABLET PO ONE (09:00)
[2020-08-19] MEDS: OLANZapine 5 MG TAB PO SCH (09:15)
[2020-08-19] MEDS: rOPINIRole 0.25 MG TAB(REQUIP) PO SCH (09:15)
[2020-08-19] MEDS: LACTOBACILLUS ACIDOPHILUS CAP (BACID) PO SCH (09:15)
[2020-08-19] MEDS: ENOXAPARIN 40MG/0.4ML SYRINGE (J1650 PER 10MG) SC SCH (09:15)
[2020-08-19] MEDS: PANTOPRAZOLE 40MG TAB (PROTONIX) PO SCH (09:16)
[2020-08-19] MEDS: AUGMENTIN 875 MG TAB PO SCH (09:16)
[2020-08-19] MEDS: FUROSEMIDE 40 MG TAB PO SCH (09:17)
[2020-08-19] MEDS ORDERED: GABA-1171 PO (11:41)
[2020-08-19] MEDS ORDERED: PERCOCET PO ×2 (11:41→11:44)
--- NOTE | 2020-08-19 11:45 | DS.PDOC ---
Discharge Summary General Date of Admission Aug 17, 2020 at 01:38 Date of Discharge Aug 19, 2020. Attending Physician: ELI VILLARREAL MD Specialist/Consultants Involve: TYRELL SALINAS MD Discharge Summary PROCEDURES PERFORMED DURING STAY: None. ADMITTING DIAGNOSES: 1. Acute on chronic BIPAP dependent type 1 (hypoxemia) and type 2 (hypercapnia) respiratory failure. 2. Metabolic encephalograph. 3. SIRS vs Sepsis. 4. COPD. 5. Chronic HFpEF. 6. RLS. 7. Migraines. 8. Chronic back pain/hardware infection. 9. Anxiety/depression. 10. Class 3 obesity. DISCHARGE DIAGNOSES: 1. Metabolic encephalopathy 2/2 polypharmacy. 2. Acute respiratory failure with hypercapnia. 3. Polypharmacy. 4. SIRS. 5. Chronic back pain with hx of T9-L2 fusion complicated by post-op hardware infection requiring chronic suppressive therapy. 6. COPD. 7. HFpEF with EF of 65-7-%. 8. RLS. 9. Migraine headache. 10. Obesity. COMPLICATIONS/CHIEF COMPLAINT: Acute Respiratory Failure With Hypoxia. HISTORY OF PRESENT ILLNESS: This 70 yr old F has been feeling weak for about 1 week; yesterday she was having jerking movement and dropped her coffee therefore her called EMS. The patient has some lapses in her memory regarding events earlier on during the day. She continues to have severe back pain but denies any changes in her medications recently or taking extra doses. She denies having f/c/ cough or chest pain and her chronic productive cough has not tovar ged. Her initial O2 sats were 78%, improved to 86-88% w NC. She was eventually transitioned to BIPAP; she was also started on abx for PNA. . HOSPITAL COURSE: During her admission, pt was placed on BIPAP while in the ICU. She was started on Vancomycin due to possible MRSA infection of her back vs possible spinal abscess. This was later ruled out after CT of C and T spine r eturned to show no abscess or acute fx or subluxation. In addition, her CRP was elevated here but after reviewing her old records, her CRP is actually lower than her baseline. Given the negative imaging and decrease in CRP, infection was not likely and Vancomycin was discontinued and pt was placed on her home suppressive dose of Amoxicillin. After her first night in the hospital, it was found that pt respiratory acidosis had worsened so her BIPAP settings were changed and pt did much better the next day as she became more alert and oriented and ABG improved. Initially, it was thought that her pneumonia may have been contributing to her acute respiratory failure however, after reviewing pt past CXR done in May there was no change appreciated and pt procalcitonin was negative so pneumonia was ruled out. It was felt that pt polypharmacy with Zyprexa, Percocet, Gabapentin, and Tizanidine was the main cause of her metabolic encephalopathy and her acute respiratory failure as these medications can all cause respiratory depression as well as increased confusion. So, on her second hospital day, her medications were decreased (Gabapentin 100 mg TID, Percocet 1 tab BID, and d/c Tizanidine) and she was started on trial table top BIPAP. Pt was kept for one more night to see how she tolerated table top BIPAP and decrease in pain medications. Pt was doing much better in the morning and w as not complaining of any increased pain and her ABG was back to her baseline. We discussed with pt about why her medications were decreased and that it is expected that her back pain may be worse but her decreased med doses will help prevent future admissions for respiratory failure with hypercapnia. Ideally it would be best if pt was d/c with BIPAP or CPAP, however given hx of noncompliance in the past, we were unable to have this covered by insurance therefore, pt was strongly encouraged pt to follow up on her appointment for her sleep study on 08/25/20 for BIPAP. DISCHARGE MEDICATIONS: Please see below. ALLERGIES: Please see below. PHYSICAL EXAMINATION ON DISCHARGE: VITAL SIGNS: Please see below. GENERAL: Morbidly obese. Pt is sitting in chair at bedside comfortably at rest. No acute distress. HEENT: NC/AT. EOMI. Conjunctiva and lids normal. CARDIOVASCULAR EXAMINATION: Regular rate and rhythm. No murmurs, rubs, or gallops appreciated. RESPIRATORY EXAMINATION: Good air movement. No wheezes, rales, or rhonchi appreciated. ABDOMINAL EXAMINATION: Normoactive bowel sounds to all four quadrants. No t enderness to palpation. No guarding or rebound. EXTREMITIES: 1+ pitting edema to mid heath to BLE. NEUROLOGICAL EXAMINATION: Pt is alert and oriented. Her speech is clear and is able to have a conversation. LABORATORY DATA: Please see below. IMAGING: CXR (08/16/20): IMPRESSION- Concern for multifocal lung infiltrates. This could represent COVID-19 pneumonia. No evidence of pulmonary edema. CTA (08/16/20): IMPRESSION- No evidence of acute, central pulmonary embolus. Peripheral pulmonary arterial evaluation is significantly limited by cardiac and respiratory motion artifact. No other acute or other concerning focal intrathoracic abnormality. Prominent sized heart with small pericardial effusion but no evidence of pulmonary edema or tamponade. CT T Spine (08/17/20): IMPRESSION- Anterior fusion of the lower cervical spine to the C7 level. Thoracolumbar fusion extending caudally from T10. Moderate wedge compression of T10 which appears to be chronic. Otherwise negative thoracic spine. No abscess is seen. No acute fracture or subluxation. CT C Spine (08/17/20): IMPRESSION- Status post anterior fusion from C4-C7. Early degenerative changes of apophyseal joints at C3-C4 and to a lesser degree C2-C3. No significant spinal or foraminal stenosis throughout and no acute fracture or subluxation. No abscess or collection seen. PROGNOSIS: Fair. ACTIVITY: As tolerated. DIET: 2G sodium diet. DISCHARGE PLAN: Discharge home with home health. DISCHARGE INSTRUCTIONS: 1. Follow up with PCP in 7-10 days. 2. Follow up for sleep study for CPAP/BIPAP. 3. Continue new doses of medications - Gabapentin 100 mg TID, Percocet 1tab BID, discontinue Tizanidine. 4. Return to ED if sx return or worsen. ITEMS TO FOLLOWUP ON ON OUTPATIENT: 1. Follow up with PCP in 7-10 days. 2. Follow up for sleep study for CPAP/BIPAP. DISCHARGE CONDITION: Stable. TIME SPENT ON DISCHARGE: Greater than 35 minutes. Vital Signs/I&Os Vital Signs Date Time Temp Pulse Resp B/P (MAP) Pulse Ox O2 Delivery O2 Flow Rate FiO2 08/19/20 08:00 97.3 73 20 129/90 (103) 95 08/19/20 04:10 2.0 08/19/20 04:00 NIPPV (BIPAP/CPAP) 08/19/20 00:30 28 I&O- Last 24 Hours up to 6 AM 08/19/20 06:00 Intake Total 855 ml Output Total 4125 ml Balance -3270 ml Laboratory Data Labs 24H Laboratory Tests 2 08/19/20 05:48: Blood Gas Bicarbonate Standard 31.3H, Arterial Blood pH 7.457H, Arterial Blood Partial Pressure CO2 46.8H, Arterial Blood Partial Pressure O2 105.4H, Arterial Blood Total CO2 33.8H, Arterial Blood HCO3 32.3H, Arterial Blood Base Excess 7.5H, Arterial Blood Oxygen Saturation 98.2 08/19/20 07:39: Nucleated Red Blood Cells % (auto) 0.0, Anion Gap 4L, Glomerular Filtration Rate > 60.0, Calcium Level 8.8, Magnesium Level 1.9 CBC/BMP Laboratory Tests 08/19/20 07:39 Microbiology Microbiology 08/16/20 Urine Culture - Final, Complete 08/16/20 Respiratory Virus Panel (PCR) ([facility]) - Final, Complete 08/16/20 Blood Culture - Preliminary, Resulted No Growth after 48 hours. All Specime... 08/16/20 Blood Culture - Preliminary, Resulted No Growth after 48 hours. All Specime... Discharge Medications Scheduled Amoxicillin/Potassium Clav (Amox-Clav 875-125 mg Tablet) 1 Each Tablet, 1 TAB PO BID, (Reported) Atorvastatin Calcium (Atorvastatin Calcium) 20 Mg Tablet, 20 MG PO QHS, (Reported) Ferrous Sulfate (Ferrous Sulfate) 325 Mg Tablet, 325 MG PO BID, (Reported) Fluticasone Propion/Salmeterol (Advair Hfa 230-21 Mcg Inhaler) 12 Gm Hfa.aer.ad, 2 PUFF INH BID, (Reported) Furosemide (Furosemide) 40 Mg Tablet, 40 MG PO DAILY, (Reported) Gabapentin (Gabapentin) 100 Mg Capsule, 100 MG PO Q8H Lactobacillus Acidophilus (Acidophilus) 1 Each Tablet, 1 TAB PO BID, (Reported) Latanoprost (Xalatan) 0.005% 2.5ML Drops, 1 DROP OU QHS, (Reported) Olanzapine (Olanzapine) 5 Mg Tablet, 5 MG PO BID, (Reported) Pantoprazole Sodium (Pantoprazole Sodium) 40 Mg Tablet.dr, 40 MG PO DAILY, (Reported) Potassium Chloride (Potassium Chloride) 20 Meq Tab.er.prt, 40 MEQ PO QAM, (Reported) Ropinirole HCl (Ropinirole HCl) 0.25 Mg Tablet, 0.25 MG PO TID, (Reported) Scheduled PRN Albuterol Sulfate (Ventolin Hfa) 108 Mcg/Act Aer, 2 PUFFS INH Q4H PRN for SHORTNESS OF BREATH, (Reported) Aspirin/Acetaminophen/Caffeine (Excedrin Migraine Caplet) 1 Each Tablet, 2 TAB- CAP PO DAILY PRN for HEADACHE, (Reported) Oxycodone/Acetaminophen (Oxycodone-Acetaminophen 5-325) 1 Each Tablet, 1 TAB PO Q12HP PRN for MODERATE PAIN (PS 5-7) . Sumatriptan Succinate (Sumatriptan Succinate) 100 Mg Tablet, 1 TAB PO ASDIRECTED PRN for MIGRAINE, (Reported) may repeat in 2 hours; do not exceed 200 mg in 24 hours Miscellaneous Medications [Med Rec Comment] , (Reported) UNABLE TO SPEAK WITH PATIENT USED LAST OFFICE VISIT AND EXTERNAL HISTORY TO DO MED REC Allergies Coded Allergies: Benzodiazepines (Verified Adverse Reaction, Intermediate, DELERIUM, 11/25/19) fentanyl (Verified Adverse Reaction, Mild, LOOPY, 11/20/19) morphine (Verified Adverse Reaction, Mild, SEDATION; profound, 11/20/19) pregabalin (Verified Adverse Reaction, Mild, FEET SWELLING, 11/25/19) GME ATTESTATION GME ATTESTATION My faculty preceptor for this patient encounter was physically present during the encounter and was fully available. All aspects of the patient interview, examination, medical decision making process, and medical care plan development were reviewed and approved by the faculty preceptor. The faculty preceptor is aware and concurs with the plan as stated in the body of this note and will attest to such by his/her cosignature. Molly VAN Julia-3 Aug 19, 2020 11:45
[2020-08-19 12:00] VITALS: BP 140/90
[2020-08-20 14:09] LABS: BODY FLUID CULTURE Not indicated. (.); LEGIONELLA ANTIGEN URINE Negative (Negative); ORGANISM ID Not indicated. (.); SPECIMEN SOURCE Urine (.); URINE STREP PNEUMONIAE ANTIGEN Negative (Negative)
== END 2020-08-19 14:23 | disposition home health service (06) | DRG 189 ==
LOC: M ED 21:33 → M ED INP 08-17 01:38 → M ICU 08-17 03:10 → M PCU 08-18 13:51
PROVIDERS: ADMIT Internal Medicine; ATTEND Internal Medicine
DX: J96.21 Acute and chronic respiratory failure with hypoxia (principal); G93.41 Metabolic encephalopathy; I50.32 Chronic diastolic (congestive) heart failure; Z68.41 Body mass index [BMI] 40.0-44.9, adult; E87.2 Acidosis; R65.10 Systemic inflammatory response syndrome (SIRS) of non-infectious origin without acute organ dysfunction; J96.22 Acute and chronic respiratory failure with hypercapnia; J44.9 Chronic obstructive pulmonary disease, unspecified; I27.20 Pulmonary hypertension, unspecified; G25.81 Restless legs syndrome; G43.909 Migraine, unspecified, not intractable, without status migrainosus; E66.01 Morbid (severe) obesity due to excess calories; G47.33 Obstructive sleep apnea (adult) (pediatric); Z99.81 Dependence on supplemental oxygen; I36.1 Nonrheumatic tricuspid (valve) insufficiency; K21.9 Gastro-esophageal reflux disease without esophagitis; D50.9 Iron deficiency anemia, unspecified; N18.31 Chronic kidney disease, stage 3a; F32.9 Major depressive disorder, single episode, unspecified; F41.9 Anxiety disorder, unspecified; Z85.118 Personal history of other malignant neoplasm of bronchus and lung; Z90.2 Acquired absence of lung [part of]; Z98.1 Arthrodesis status; Z90.49 Acquired absence of other specified parts of digestive tract; Z91.19 Patient's noncompliance with other medical treatment and regimen; Z87.891 Personal history of nicotine dependence; Z79.899 Other long term (current) drug therapy; Z88.5 Allergy status to narcotic agent; Z88.8 Allergy status to other drugs, medicaments and biological substances

== ENCOUNTER → 2020-08-25 | Outpatient (CLI) | payer MEDICARE, BC, OTHER ==
--- NOTE | 2020-08-28 09:14 | SLEEPCENT ---
DATE: 08/25/2020 ORDERED BY: Kp Duran Nocturnal polysomnography was performed for the retitration of pressure therapy in this patient with obstructive sleep apnea syndrome. For testing, a ResMed Quattro full-face mask of medium size was used. There was 10 of water pressure initially applied to the circuit, and the lights were extinguished. There was 8 hours and 1 minute of data reviewed. There was 356 minutes of sleep identified. Sleep latency was mildly prolonged at 17.5 minutes. REM latency was normal at 109 minutes. Sleep architecture initially showed some fragmentation. Improvement was seen after optimal pressure titration. Overall sleep efficiency was 74.9%. The electrocardiogram showed an underlying sinus rhythm with occasional premature ventricular contractions (PVCs). Average heart rate 90 beats per minute. EEG showed normal waveforms for wake and sleep. Respiratory events were best palliated with CPAP at a pressure of +15. Following optimal pressure titration, hypoventilatory oxygen desaturations prompted the addition of supplemental oxygen. Best sleep was seen on a CPAP pressure of 15 with 2 liters of oxygen bled through the circuit. IMPRESSION: 1. Obstructive sleep apnea syndrome. 2. Hypoventilatory oxygen desaturations. RECOMMENDATION: Nightly use of pressure therapy, 15 cm of water with 2 liters of oxygen bled through the circuit. Edited: kelle 08/28/2020 [id number] MTDD
== END ==
LOC: M SLEEP 20:00
PROVIDERS: ATTEND Internal Medicine Pulmonary Disease
DX: G47.33 Obstructive sleep apnea (adult) (pediatric) (principal); G47.36 Sleep related hypoventilation in conditions classified elsewhere

== ENCOUNTER → 2020-11-03 | Outpatient (REF) | payer MEDICARE, OTHER ==
[~2020-11-03] MED LIST changes: +GABA-283 PO; -GABA-845 PO; +OLAN1TAB16 PO; -OLAN5TAB PO
[2020-11-03 15:21] LABS: BASO # 0.1 10^3/uL (0.0-0.2); BASO % 0.5 % (0.0-1.0); EOS # 0.3 10^3/uL (0.0-0.5); EOS % 2.5 % (0.0-3.0); HEMATOCRIT 42.5 % (36.0-47.0); LYMPH % 17.5 % (24.0-44.0); MEAN CORPUSCULAR HEMOGLOBIN 29.8 pg (27.0-33.0); MEAN CORPUSCULAR HGB CONC 30.6 g/dl (32.0-36.5); MEAN CORPUSCULAR VOLUME 97.5 fl (80.0-96.0); MONO # 0.7 10^3/uL (0.0-0.8); MONO % 6.6 % (2.0-8.0); NEUTROPHILS # 8.1 10^3/uL (1.5-8.5); NEUTROPHILS % 72.5 % (36.0-66.0); PLATELET COUNT, AUTOMATED 230 10^3/uL (150-450); RED BLOOD COUNT 4.36 10^6/uL (4.00-5.40); WHITE BLOOD COUNT 11.2 10^3/uL (4.0-10.0)
[2020-11-03 15:56] LABS: ALT/SGPT 26 U/L (12-78); BILIRUBIN,TOTAL 0.3 MG/DL (0.2-1.0); BLOOD UREA NITROGEN 17 MG/DL (7-18); C REACTIVE PROTEIN QUANTITATIV 0.48 MG/DL (0.00-0.30); CALCIUM LEVEL 9.6 MG/DL (8.8-10.2); CARBON DIOXIDE LEVEL 34 MEQ/L (21-32); CHLORIDE LEVEL 102 MEQ/L (98-107); CREATININE FOR GFR 0.77 MG/DL (0.55-1.30); GLOMERULAR FILTRATION RATE > 60.0 (>45); GLUCOSE, FASTING 92 MG/DL (70-100); POTASSIUM SERUM 4.1 MEQ/L (3.5-5.1); SODIUM LEVEL 139 MEQ/L (136-145); TOTAL PROTEIN 7.8 GM/DL (6.4-8.2)
[2020-11-03 16:00] LABS: ERYTHROCYTE SEDIMENTATION RATE 31 mm/hr (0-30)
== END ==
LOC: M SFHCPLAZ 13:12
PROVIDERS: ATTEND Internal Medicine Infectious Disease
DX: R10.11 Right upper quadrant pain (principal)
CPT/HCPCS: 36415; 80053; 85025; 85652; 86140; G0463

== ENCOUNTER → 2020-11-13 | Outpatient (CLI) | payer MEDICARE, BC, OTHER ==
[~2020-11-13] MED LIST changes: +ISOVUE-370 76% 100ML VIAL As Ordered ONE; -OLAN1TAB16 PO; +OLAN5TAB PO
--- NOTE | 2020-11-13 14:10 | REP ---
INDICATION: RIGHT UPPER QUADRANT PAIN COMPARISON: 01/24/2018.. TECHNIQUE: CT Scan of the abdomen and pelvis was performed with intravenous administration of 100 cc of Isovue 370, and oral contrast. FINDINGS: Lung bases: There is mild bibasilar fibro atelectatic change. Liver: Normal Gallbladder: Prior cholecystectomy. Spleen: Multiple calcified granulomas. Adrenals: Normal. Pancreas: Normal. Kidneys: There is a subcentimeter cyst in the mid left kidney. Small and large bowel: There is sigmoid diverticulosis without acute diverticulitis. Free fluid: None. Abdominal aorta: No aneurysm or dissection. Adenopathy: None. Appendix: Not inflamed. Osseous structures: There is a stable compression deformity of T9. There is extensive posterior metallic fusion hardware in the lower thoracic and throughout the lumbar spine. Pelvis: No mass. IMPRESSION: No acute abnormalities as discussed above. <Electronically signed by Jose Morales > 11/13/20 [id number]
== END ==
LOC: M RAD 12:53
PROVIDERS: ATTEND Internal Medicine Infectious Disease
DX: N28.1 Cyst of kidney, acquired (principal); K57.30 Diverticulosis of large intestine without perforation or abscess without bleeding; S22.070D Wedge compression fracture of T9-T10 vertebra, subsequent encounter for fracture with routine healing; Z90.49 Acquired absence of other specified parts of digestive tract; Z98.1 Arthrodesis status
CPT/HCPCS: 74177; Q9967

== ENCOUNTER → 2020-12-10 | Outpatient (CLI) | payer MEDICARE, BC, OTHER ==
[~2020-12-10] MED LIST changes: -ISOVUE-370 76% 100ML VIAL As Ordered ONE; +OLAN1TAB16 PO; -OLAN5TAB PO
--- NOTE | 2020-12-10 13:20 | REP ---
INDICATION: INFECTION FOLLOWING A PROCEDURE, OTHER SURGICAL SITE, INIT. COMPARISON: Comparison chest x-ray August 16, 2020. TECHNIQUE: Three views... FINDINGS: Dorsal transpedicle screw adonis fixation is seen across the lower thoracic and upper lumbar spine as before. There is a advanced anterior wedge compression fracture deformity just above the most cranial thoracic spine fixation level. This compression fracture deformity is new when compared with January 05, 2020 study. However, it is unchanged from the August 18, 2020 CT study. There is a gibbus deformity at this level. This appears to be the T9 level. The cervical spine fusion plate is also noted in place. Cardiomegaly is observed unchanged. There is linear fibrosis in the left lateral pleural angle. Right hemidiaphragm is slightly elevated as before. No new infiltrate is seen. The aorta is tortuous. IMPRESSION: 1. 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 2. Cervical spine and thoracolumbar spine fixation hardware. 3. Elevated right hemidiaphragm and linear fibrosis left base. Otherwise no active cardiopulmonary disease. . <Electronically signed by Jos Rosas > 12/10/20 [id number]
--- NOTE | 2020-12-10 13:51 | REP ---
INDICATION: INFECTION FOLLOWING A PROCEDURE, OTHER SURGICAL SITE, INIT. COMPARISON: Comparison CT study November 13, 2020 and August 18, 2020.. TECHNIQUE: Five views of the lumbar spine are provided. FINDINGS: Transpedicle screws and interconnecting dorsal fixation rods are seen throughout the lower thoracic and lumbar spine at each level from T10 through S1. There are fixation rods in the iliac bones bilaterally as well connected to the dorsal fixation. A ventral metallic facial fixation device is seen at the L5-S1 disc level. Another metallic ventral disc fusion device is seen at the T11-12 level. The previous study from 2014 shows dorsal adonis fixation and ventral fusion plating at the L5-S1 level. There is mild loss of of vertebral body height and concavity of the superior endplates at L4 and L3. Mild old wedging at T12 is present. There is nearly complete loss of anterior vertebral body height at the T9 level again noted. This is unchanged from comparison CT study done November 13, 2020. There is mild gibbus at this level. Vascular calcification is noted. Bowel gas pattern is unremarkable. IMPRESSION: No acute bony destructive lesion. Wedge compression deformity at T9. Extensive fusion hardware thoracolumbar spine and sacrum. <Electronically signed by Jos Rosas > 12/10/20 [id number]
[2020-12-10 15:24] LABS: BASO # 0.1 10^3/uL (0.0-0.2); BASO % 0.5 % (0.0-1.0); EOS # 0.3 10^3/uL (0.0-0.5); EOS % 2.6 % (0.0-3.0); HEMATOCRIT 39.1 % (36.0-47.0); HEMOGLOBIN 11.9 g/dl (12.0-15.5); LYMPH # 1.8 10^3/uL (1.5-5.0); LYMPH % 16.5 % (24.0-44.0); MEAN CORPUSCULAR HEMOGLOBIN 29.4 pg (27.0-33.0); MEAN CORPUSCULAR HGB CONC 30.4 g/dl (32.0-36.5); MEAN CORPUSCULAR VOLUME 96.5 fl (80.0-96.0); MONO # 0.9 10^3/uL (0.0-0.8); MONO % 8.9 % (2.0-8.0); NEUTROPHILS # 7.5 10^3/uL (1.5-8.5); NEUTROPHILS % 70.9 % (36.0-66.0); PLATELET COUNT, AUTOMATED 201 10^3/uL (150-450); RED BLOOD COUNT 4.05 10^6/uL (4.00-5.40); WHITE BLOOD COUNT 10.6 10^3/uL (4.0-10.0)
[2020-12-10 15:43] LABS: ERYTHROCYTE SEDIMENTATION RATE 35 mm/hr (0-30)
[2020-12-10 16:05] LABS: ALT/SGPT 26 U/L (12-78); BILIRUBIN,TOTAL 0.3 MG/DL (0.2-1.0); BLOOD UREA NITROGEN 14 MG/DL (7-18); C REACTIVE PROTEIN QUANTITATIV 0.86 MG/DL (0.00-0.30); CALCIUM LEVEL 9.3 MG/DL (8.8-10.2); CARBON DIOXIDE LEVEL 33 MEQ/L (21-32); CHLORIDE LEVEL 101 MEQ/L (98-107); CREATININE FOR GFR 0.79 MG/DL (0.55-1.30); GLOMERULAR FILTRATION RATE > 60.0 (>45); GLUCOSE, FASTING 85 MG/DL (70-100); NT-PRO BNP 55 PG/ML (<125); POTASSIUM SERUM 4.6 MEQ/L (3.5-5.1); SODIUM LEVEL 138 MEQ/L (136-145); TOTAL PROTEIN 7.2 GM/DL (6.4-8.2)
== END ==
LOC: M PLALAB 12:21 → M PLAIMG 12:21
PROVIDERS: ATTEND Internal Medicine Infectious Disease
DX: M53.84 Other specified dorsopathies, thoracic region (principal); T81.49XA Infection following a procedure, other surgical site, initial encounter; I50.32 Chronic diastolic (congestive) heart failure
CPT/HCPCS: 36415; 71046; 72110; 80053; 83880; 85025; 85652; 86140; G0463

== ENCOUNTER → 2021-03-22 | Outpatient (CLI) | payer MEDICARE, BC, OTHER ==
[2021-03-22 18:40] LABS: BASO # 0.1 10^3/uL (0.0-0.2); BASO % 0.5 % (0.0-1.0); EOS # 0.3 10^3/uL (0.0-0.5); EOS % 3.3 % (0.0-3.0); HEMATOCRIT 39.9 % (36.0-47.0); HEMOGLOBIN 12.5 g/dl (12.0-15.5); LYMPH # 2.3 10^3/uL (1.5-5.0); LYMPH % 21.8 % (24.0-44.0); MEAN CORPUSCULAR HEMOGLOBIN 30.9 pg (27.0-33.0); MEAN CORPUSCULAR HGB CONC 31.3 g/dl (32.0-36.5); MEAN CORPUSCULAR VOLUME 98.5 fl (80.0-96.0); MONO # 0.9 10^3/uL (0.0-0.8); MONO % 8.6 % (2.0-8.0); NEUTROPHILS # 6.8 10^3/uL (1.5-8.5); NEUTROPHILS % 65.3 % (36.0-66.0); PLATELET COUNT, AUTOMATED 217 10^3/uL (150-450); RED BLOOD COUNT 4.05 10^6/uL (4.00-5.40); WHITE BLOOD COUNT 10.4 10^3/uL (4.0-10.0)
[2021-03-22 19:44] LABS: ALT/SGPT 29 U/L (12-78); BILIRUBIN,TOTAL 0.2 MG/DL (0.2-1.0); BLOOD UREA NITROGEN 14 MG/DL (7-18); C REACTIVE PROTEIN QUANTITATIV 0.43 MG/DL (0.00-0.30); CALCIUM LEVEL 9.9 MG/DL (8.8-10.2); CARBON DIOXIDE LEVEL 32 MEQ/L (21-32); CHLORIDE LEVEL 103 MEQ/L (98-107); CREATININE FOR GFR 0.81 MG/DL (0.55-1.30); GLOMERULAR FILTRATION RATE > 60.0 (>45); GLUCOSE, FASTING 82 MG/DL (70-100); POTASSIUM SERUM 4.1 MEQ/L (3.5-5.1); SODIUM LEVEL 140 MEQ/L (136-145); TOTAL PROTEIN 7.2 GM/DL (6.4-8.2)
[2021-03-22 20:04] LABS: ERYTHROCYTE SEDIMENTATION RATE 17 mm/hr (0-30)
== END ==
LOC: M PLALAB 13:48
PROVIDERS: ATTEND Internal Medicine Infectious Disease
DX: T81.49XA Infection following a procedure, other surgical site, initial encounter (principal); Z79.899 Other long term (current) drug therapy
CPT/HCPCS: 36415; 80053; 85025; 85652; 86140; G0463

== ENCOUNTER → 2021-10-05 | Outpatient (CLI) | payer MEDICARE, BC, OTHER ==
[~2021-10-05] MED LIST changes: +AMPI2INJ IV; -AMPI2INJ18 IV; -CEFD1CAP8 PO; +CEFD300C41 PO; +EXCETAB32 PO; -EXCETAB33 PO; -LISI-898 PO; +LISI5TAB11 PO; +POTA-151 PO; -POTA20TA6 PO; +TIZA10TA PO; -TIZA4TAB4 PO
[2021-10-05 15:15] LABS: BASO % 0.3 % (0.0-1.0); EOS # 0.1 10^3/uL (0.0-0.5); EOS % 0.8 % (0.0-3.0); HEMATOCRIT 37.8 % (36.0-47.0); LYMPH # 1.1 10^3/uL (1.5-5.0); LYMPH % 9.5 % (24.0-44.0); MEAN CORPUSCULAR HEMOGLOBIN 32.2 pg (27.0-33.0); MEAN CORPUSCULAR HGB CONC 31.7 g/dl (32.0-36.5); MEAN CORPUSCULAR VOLUME 101.3 fl (80.0-96.0); MONO # 0.5 10^3/uL (0.0-0.8); MONO % 4.5 % (2.0-8.0); NEUTROPHILS % 83.9 % (36.0-66.0); PLATELET COUNT, AUTOMATED 221 10^3/uL (150-450); RED BLOOD COUNT 3.73 10^6/uL (4.00-5.40); WHITE BLOOD COUNT 11.9 10^3/uL (4.0-10.0)
[2021-10-05 15:31] LABS: BLOOD UREA NITROGEN 22 MG/DL (7-18); C REACTIVE PROTEIN QUANTITATIV 1.36 MG/DL (0.00-0.30); CALCIUM LEVEL 9.5 MG/DL (8.8-10.2); CARBON DIOXIDE LEVEL 30 MEQ/L (21-32); CHLORIDE LEVEL 106 MEQ/L (98-107); CREATININE FOR GFR 0.89 MG/DL (0.55-1.30); GLOMERULAR FILTRATION RATE > 60.0 (>39); GLUCOSE, FASTING 101 MG/DL (70-100); POTASSIUM SERUM 4.5 MEQ/L (3.5-5.1); SODIUM LEVEL 140 MEQ/L (136-145)
[2021-10-05 15:56] LABS: ERYTHROCYTE SEDIMENTATION RATE 33 mm/hr (0-30)
== END ==
LOC: M PLALAB 13:21
PROVIDERS: ATTEND Internal Medicine Infectious Disease
DX: T81.49XA Infection following a procedure, other surgical site, initial encounter (principal); Z79.899 Other long term (current) drug therapy

== ENCOUNTER 2022-03-18 15:37 | Emergency (ER) | payer MEDICARE, BC, OTHER ==
[~2022-03-18] VITALS: Ht 154.9 cm; Wt 111.4 kg
[2022-03-18] MEDS ORDERED: OXYC10TA3 PO (16:11)
[2022-03-18] MEDS ORDERED: GABA-283 PO (16:11)
[2022-03-18] MEDS ORDERED: PRED10TA2 PO ×2 (16:11→20:18)
[2022-03-18] MEDS ORDERED: FERR325T3 PO (16:11)
[2022-03-18 17:48] LABS: BASO % 0.1 % (0.0-1.0); EOS # 0.1 10^3/uL (0.0-0.5); EOS % 1.1 % (0.0-3.0); HEMATOCRIT 38.1 % (36.0-47.0); HEMOGLOBIN 11.5 g/dl (12.0-15.5); LYMPH # 1.1 10^3/uL (1.5-5.0); LYMPH % 9.7 % (24.0-44.0); MEAN CORPUSCULAR HEMOGLOBIN 31.2 pg (27.0-33.0); MEAN CORPUSCULAR HGB CONC 30.2 g/dl (32.0-36.5); MEAN CORPUSCULAR VOLUME 103.3 fl (80.0-96.0); MONO # 0.5 10^3/uL (0.0-0.8); MONO % 4.3 % (2.0-8.0); NEUTROPHILS # 9.9 10^3/uL (1.5-8.5); NEUTROPHILS % 84.4 % (36.0-66.0); PLATELET COUNT, AUTOMATED 196 10^3/uL (150-450); RED BLOOD COUNT 3.69 10^6/uL (4.00-5.40); WHITE BLOOD COUNT 11.7 10^3/uL (4.0-10.0)
[2022-03-18 18:11] LABS: RSV AMPLIFICATION NEGATIVE (NEGATIVE)
[2022-03-18 18:26] LABS: ALBUMIN 3.8 GM/DL (3.2-5.2); ALT/SGPT 20 U/L (12-78); BILIRUBIN,DIRECT < 0.1 MG/DL (0.0-0.2); BILIRUBIN,TOTAL 0.2 MG/DL (0.2-1.0); BLOOD UREA NITROGEN 13 MG/DL (7-18); CALCIUM LEVEL 9.2 MG/DL (8.8-10.2); CARBON DIOXIDE LEVEL 35 MEQ/L (21-32); CHLORIDE LEVEL 99 MEQ/L (98-107); CREATININE FOR GFR 0.87 MG/DL (0.55-1.30); GLOMERULAR FILTRATION RATE > 60.0 (>39); GLUCOSE, FASTING 115 MG/DL (70-100); POTASSIUM SERUM 4.1 MEQ/L (3.5-5.1); SODIUM LEVEL 138 MEQ/L (136-145); TOTAL PROTEIN 7.4 GM/DL (6.4-8.2)
[2022-03-18] MEDS ORDERED: FURO40TA2 PO (20:18)
[2022-03-18] MEDS ORDERED: HOME MED LIST COMPLETE! XX SCH (20:20)
[2022-03-18] MEDS ORDERED: PERCOCET 5MG/325MG TAB PO ONE (20:25)
[2022-03-18] MEDS ORDERED: CEFDINIR 300 MG CAP (OMNICEF) PO ONE (20:25)
[2022-03-18] MEDS ORDERED: CEFD300C41 PO (20:26)
[2022-03-18 20:43] VITALS: BP 154/77
== END 2022-03-18 21:02 | disposition home or self-care (01) ==
LOC: M ED 15:37
DX: N39.0 Urinary tract infection, site not specified (principal); R41.0 Disorientation, unspecified; I13.0 Hypertensive heart and chronic kidney disease with heart failure and stage 1 through stage 4 chronic kidney disease, or unspecified chronic kidney disease; I50.9 Heart failure, unspecified; J98.11 Atelectasis; J44.9 Chronic obstructive pulmonary disease, unspecified; R56.9 Unspecified convulsions; E78.5 Hyperlipidemia, unspecified; Z85.118 Personal history of other malignant neoplasm of bronchus and lung; Z88.8 Allergy status to other drugs, medicaments and biological substances; Z88.5 Allergy status to narcotic agent; Z79.82 Long term (current) use of aspirin; Z79.899 Other long term (current) drug therapy; Z79.51 Long term (current) use of inhaled steroids

== ENCOUNTER 2022-03-22 02:34 | Inpatient (IN) | payer MEDICARE, BC, OTHER ==
[~2022-03-22] VITALS: Ht 154.9 cm; Wt 108.4 kg
[2022-03-22] MEDS ORDERED: ACETAMINOPHEN TAB 650MG DOSE (2X325MG) PO ONE (02:55)
[2022-03-22 03:06] LABS: BASO % 0.1 % (0.0-1.0); HEMATOCRIT 37.5 % (36.0-47.0); HEMOGLOBIN 12.2 g/dl (12.0-15.5); LYMPH # 1.1 10^3/uL (1.5-5.0); LYMPH % 4.4 % (24.0-44.0); MEAN CORPUSCULAR HEMOGLOBIN 31.9 pg (27.0-33.0); MEAN CORPUSCULAR HGB CONC 32.5 g/dl (32.0-36.5); MEAN CORPUSCULAR VOLUME 97.9 fl (80.0-96.0); MONO % 6.1 % (2.0-8.0); NEUTROPHILS # 23.2 10^3/uL (1.5-8.5); NEUTROPHILS % 88.7 % (36.0-66.0); PLATELET COUNT, AUTOMATED 235 10^3/uL (150-450); RED BLOOD COUNT 3.83 10^6/uL (4.00-5.40); WHITE BLOOD COUNT 26.1 10^3/uL (4.0-10.0)
[2022-03-22 03:11] LABS: MONO # 1.6 10^3/uL (0.0-0.8)
[2022-03-22] MEDS ORDERED: NS 1,000 ML IV ONE ×2 (03:15→07:25)
[2022-03-22 03:43] LABS: RSV AMPLIFICATION NEGATIVE (NEGATIVE)
[2022-03-22 03:57] LABS: ALBUMIN 3.6 GM/DL (3.2-5.2); ALT/SGPT 19 U/L (12-78); BILIRUBIN,DIRECT 0.2 MG/DL (0.0-0.2); BILIRUBIN,TOTAL 0.3 MG/DL (0.2-1.0); BLOOD UREA NITROGEN 19 MG/DL (7-18); CARBON DIOXIDE LEVEL 32 MEQ/L (21-32); CHLORIDE LEVEL 100 MEQ/L (98-107); CREATININE FOR GFR 0.96 MG/DL (0.55-1.30); GLOMERULAR FILTRATION RATE > 60.0 (>39); GLUCOSE, FASTING 116 MG/DL (70-100); POTASSIUM SERUM 3.7 MEQ/L (3.5-5.1); SODIUM LEVEL 139 MEQ/L (136-145); THYROID STIMULATING HORMONE 0.844 uIU/ML (0.358-3.740); TOTAL PROTEIN 6.9 GM/DL (6.4-8.2)
[2022-03-22] MEDS ORDERED: ISOVUE-370 76% 100ML VIAL As Ordered ONE (04:27)
[2022-03-22 05:56] LABS: ABG BASE EXCESS 4.7 (-2.0-2.0); ABG HCO3 31.2 MEQ/L (22.0-26.0); ABG PARTIAL PRESSURE CO2 55.5 mmHg (35.0-45.0); ABG STANDARD HCO3 28.7 MEQ/L (22.0-26.0); ABG TOTAL CO2 32.9 MEQ/L (23.0-31.0); ABG pH (ARTERIAL) 7.368 UNITS (7.350-7.450)
[2022-03-22] MEDS ORDERED: PIPERACILLIN/TAZOBACTAM SOD 4.5 GM in D5W MINI-BAG PLUS 50 ML IV ONE (06:05)
[2022-03-22 08:13] LABS: C REACTIVE PROTEIN QUANTITATIV 3.57 MG/DL (0.00-0.30)
[2022-03-22 08:49] LABS: MAGNESIUM LEVEL 2.1 MG/DL (1.8-2.4)
[2022-03-22] MEDS ORDERED: RISATAB3 PO (09:40)
[2022-03-22] MEDS ORDERED: CEFD300C41 PO (09:40)
[2022-03-22] MEDS ORDERED: PREDOPD OS (09:40)
[2022-03-22] MEDS ORDERED: ROPI0.253 PO ×2 (09:40)
[2022-03-22] MEDS ORDERED: MAGN400T2 PO (09:40)
[2022-03-22 09:51] LABS: ERYTHROCYTE SEDIMENTATION RATE 28 mm/hr (0-30)
[2022-03-22] MEDS ORDERED: HOME MED LIST COMPLETE! XX SCH (09:55)
[2022-03-22] MEDS ORDERED: PERCOCET 5MG/325MG TAB PO ONE (11:25)
[2022-03-22] MEDS ORDERED: PIPERACILLIN/TAZOBACTAM SOD 4.5 GM in D5W MINI-BAG PLUS 50 ML IV SCH (13:00)
[2022-03-22] MEDS ORDERED: MEROPENEM INJ 2 GM in NS 100 ML IV SCH (16:55)
[2022-03-22] MEDS ORDERED: SUMAtriptan SUCCINATE 25 MG TAB PO PRN (16:55)
[2022-03-22] MEDS ORDERED: VANCOMYCIN HCL 750 MG, VIAL MATE ADAPTER 1 EACH in NS 250 ML IV SCH (16:55)
[2022-03-22] MEDS ORDERED: NS 1,000 ML IV SCH (16:55)
[2022-03-22] MEDS ORDERED: SOD POLYSTYRENE SULFONATE SUSP 30GM 120ML ENEMA PR ONE (17:00)
[2022-03-22] MEDS ORDERED: ALBUTEROL 90 MCG/ACT 8GM HFA INHALER INH PRN (17:15)
[2022-03-22] MEDS: SENNA 8.6 MG TAB (SENOKOT) PO SCH (20:08)
[2022-03-22] MEDS: DOCUSATE SODIUM 100MG CAPSULE PO SCH (20:09)
[2022-03-22] MEDS: MIRALAX *UNIT DOSE* 17GM PACKET PO SCH (21:03)
[2022-03-22] MEDS: ATORVASTATIN 20 MG TAB PO SCH (21:03)
[2022-03-22] MEDS: HEPARIN SOD (PORCINE) 5000UNITS/ML 1ML VIAL/SYRINGE SC SCH (21:04)
[2022-03-22] MEDS: prednisoLONE ACET 1% OPHTH SUSP 5ML OS SCH (21:04)
[2022-03-22] MEDS: OLANZapine 5 MG TAB PO SCH (21:04)
[2022-03-22] MEDS: GABAPENTIN 400MG CAP PO SCH (21:04)
[2022-03-22] MEDS: rOPINIRole 0.25 MG TAB(REQUIP) PO SCH (21:05)
[2022-03-22] MEDS: IPRATROPIUM 0.5MG/ALBUTEROL 2.5MG INH SOL UD 3ML (DUONEB) NEB SCH ×2 (21:09→23:53)
[2022-03-22] MEDS ORDERED: VANCOMYCIN HCL 1,000 MG, VIAL MATE ADAPTER 1 EACH in NS 250 ML IV ONE (23:00)
[2022-03-22] MEDS: ACETAMINOPHEN TAB 650MG DOSE (2X325MG) PO PRN (23:43)
[2022-03-23] MEDS ORDERED: VANCOMYCIN HCL 1,000 MG, VIAL MATE ADAPTER 1 EACH in NS 250 ML IV ONE ×3
[2022-03-23] MEDS: MEROPENEM INJ 1 GM in IV 1 EA IV SCH ×3 (01:58→18:13)
[2022-03-23] MEDS: IPRATROPIUM 0.5MG/ALBUTEROL 2.5MG INH SOL UD 3ML (DUONEB) NEB SCH ×6 (03:17→22:57)
[2022-03-23 05:20] VITALS: BP 131/63
[2022-03-23 06:07] LABS: HEMATOCRIT 33.3 % (36.0-47.0); HEMOGLOBIN 10.7 g/dl (12.0-15.5); MEAN CORPUSCULAR HEMOGLOBIN 31.8 pg (27.0-33.0); MEAN CORPUSCULAR HGB CONC 32.1 g/dl (32.0-36.5); MEAN CORPUSCULAR VOLUME 99.1 fl (80.0-96.0); PLATELET COUNT, AUTOMATED 193 10^3/uL (150-450); RED BLOOD COUNT 3.36 10^6/uL (4.00-5.40); WHITE BLOOD COUNT 23.7 10^3/uL (4.0-10.0)
[2022-03-23] MEDS: HEPARIN SOD (PORCINE) 5000UNITS/ML 1ML VIAL/SYRINGE SC SCH ×3 (06:24→22:34)
[2022-03-23 06:34] LABS: BLOOD UREA NITROGEN 11 MG/DL (7-18); CALCIUM LEVEL 8.3 MG/DL (8.8-10.2); CARBON DIOXIDE LEVEL 29 MEQ/L (21-32); CHLORIDE LEVEL 103 MEQ/L (98-107); CREATININE FOR GFR 0.65 MG/DL (0.55-1.30); GLOMERULAR FILTRATION RATE > 60.0 (>39); GLUCOSE, FASTING 121 MG/DL (70-100); POTASSIUM SERUM 3.4 MEQ/L (3.5-5.1); SODIUM LEVEL 138 MEQ/L (136-145)
[2022-03-23 08:00] VITALS: BP 126/59
[2022-03-23] MEDS ORDERED: POTASSIUM CHLORIDE 10MEQ SR TABLET PO ONE (09:00)
[2022-03-23] MEDS: predniSONE 20 MG TAB PO SCH (09:01)
[2022-03-23] MEDS: PANTOPRAZOLE 40MG TAB (PROTONIX) PO SCH (09:01)
[2022-03-23] MEDS: SENNA 8.6 MG TAB (SENOKOT) PO SCH ×2 (09:02→20:23)
[2022-03-23] MEDS: OLANZapine 5 MG TAB PO SCH ×2 (09:02→20:31)
[2022-03-23] MEDS: rOPINIRole 0.25 MG TAB(REQUIP) PO SCH ×2 (09:02→20:31)
[2022-03-23] MEDS: GABAPENTIN 400MG CAP PO SCH ×3 (09:02→20:31)
[2022-03-23] MEDS: DOCUSATE SODIUM 100MG CAPSULE PO SCH ×2 (09:03→20:22)
[2022-03-23] MEDS: MIRALAX *UNIT DOSE* 17GM PACKET PO SCH ×2 (09:03→20:22)
[2022-03-23] MEDS: amLODIPine 5 MG TAB PO SCH (09:06)
[2022-03-23] MEDS ORDERED: BISACODYL 10 MG SUPP PR ONE (10:00)
[2022-03-23] MEDS ORDERED: BISACODYL ENEMA 10 MG/30 ML PR ONE (10:00)
[2022-03-23] MEDS: VANCOMYCIN HCL 750 MG, VIAL MATE ADAPTER 1 EACH in D5W 250 ML IV SCH ×2 (11:19→22:35)
[2022-03-23 12:00] VITALS: BP 148/67
[2022-03-23] MEDS: VANCOMYCIN HCL 500 MG in D5W MINI-BAG PLUS 100 ML IV SCH (12:34)
[2022-03-23] MEDS: prednisoLONE ACET 1% OPHTH SUSP 5ML OS SCH ×2 (14:48→20:31)
[2022-03-23 16:00] VITALS: BP 148/70
[2022-03-23] MEDS: oxyCODONE 5MG TAB PO PRN ×2 (18:14→22:37)
[2022-03-23 19:53] VITALS: BP 120/70
[2022-03-23] MEDS: ATORVASTATIN 20 MG TAB PO SCH (20:31)
[2022-03-24 00:08] VITALS: BP 145/67
[2022-03-24] MEDS: MEROPENEM INJ 1 GM in IV 1 EA IV SCH ×3 (01:39→20:12)
[2022-03-24] MEDS: IPRATROPIUM 0.5MG/ALBUTEROL 2.5MG INH SOL UD 3ML (DUONEB) NEB SCH ×6 (03:34→23:51)
[2022-03-24 04:04] VITALS: BP 146/66
[2022-03-24 04:44] LABS: HEMOGLOBIN 11.1 g/dl (12.0-15.5); MEAN CORPUSCULAR HEMOGLOBIN 31.4 pg (27.0-33.0); MEAN CORPUSCULAR HGB CONC 31.7 g/dl (32.0-36.5); MEAN CORPUSCULAR VOLUME 99.2 fl (80.0-96.0); PLATELET COUNT, AUTOMATED 197 10^3/uL (150-450); RED BLOOD COUNT 3.53 10^6/uL (4.00-5.40); WHITE BLOOD COUNT 20.4 10^3/uL (4.0-10.0)
[2022-03-24 05:07] LABS: BLOOD UREA NITROGEN 10 MG/DL (7-18); CALCIUM LEVEL 8.4 MG/DL (8.8-10.2); CARBON DIOXIDE LEVEL 31 MEQ/L (21-32); CHLORIDE LEVEL 104 MEQ/L (98-107); CREATININE FOR GFR 0.64 MG/DL (0.55-1.30); GLOMERULAR FILTRATION RATE > 60.0 (>39); GLUCOSE, FASTING 121 MG/DL (70-100); POTASSIUM SERUM 3.6 MEQ/L (3.5-5.1); SODIUM LEVEL 140 MEQ/L (136-145)
[2022-03-24] MEDS: HEPARIN SOD (PORCINE) 5000UNITS/ML 1ML VIAL/SYRINGE SC SCH ×3 (05:32→21:09)
[2022-03-24 08:00] VITALS: BP 128/59
[2022-03-24] MEDS: PANTOPRAZOLE 40MG TAB (PROTONIX) PO SCH (08:17)
[2022-03-24] MEDS: GABAPENTIN 400MG CAP PO SCH ×3 (08:17→21:10)
[2022-03-24] MEDS: predniSONE 20 MG TAB PO SCH (08:18)
[2022-03-24] MEDS: rOPINIRole 0.25 MG TAB(REQUIP) PO SCH ×2 (08:19→21:10)
[2022-03-24] MEDS: DOCUSATE SODIUM 100MG CAPSULE PO SCH ×2 (08:19→21:10)
[2022-03-24] MEDS: amLODIPine 5 MG TAB PO SCH (08:19)
[2022-03-24] MEDS: SENNA 8.6 MG TAB (SENOKOT) PO SCH ×2 (08:20→21:10)
[2022-03-24] MEDS: MIRALAX *UNIT DOSE* 17GM PACKET PO SCH ×2 (08:20→21:09)
[2022-03-24] MEDS: prednisoLONE ACET 1% OPHTH SUSP 5ML OS SCH ×2 (08:20→21:11)
[2022-03-24] MEDS: FUROSEMIDE 20 MG TAB PO SCH (09:58)
[2022-03-24] MEDS: VANCOMYCIN HCL 750 MG, VIAL MATE ADAPTER 1 EACH in D5W 250 ML IV SCH ×2 (10:58→22:34)
[2022-03-24 12:00] VITALS: BP 139/66
[2022-03-24] MEDS: VANCOMYCIN HCL 500 MG in D5W MINI-BAG PLUS 100 ML IV SCH ×4 (12:05→23:57)
[2022-03-24] MEDS: oxyCODONE 5MG TAB PO PRN ×2 (12:18→22:34)
[2022-03-24 14:49] LABS: ABG BASE EXCESS 1.8 (-2.0-2.0); ABG HCO3 27.8 MEQ/L (22.0-26.0); ABG TOTAL CO2 29.3 MEQ/L (23.0-31.0); ABG pH (ARTERIAL) 7.363 UNITS (7.350-7.450)
[2022-03-24 16:00] VITALS: BP 148/72
[2022-03-24] MEDS ORDERED: ISOVUE-370 76% 100ML VIAL As Ordered ONE (17:07)
[2022-03-24 20:00] VITALS: BP 137/92
[2022-03-24] MEDS: ATORVASTATIN 20 MG TAB PO SCH (21:10)
[2022-03-25] VITALS (7 sets, daily range): BP systolic 136–180; BP diastolic 67–88
[2022-03-25] MEDS: MEROPENEM INJ 1 GM in IV 1 EA IV SCH ×3 (03:02→17:51)
[2022-03-25] MEDS: IPRATROPIUM 0.5MG/ALBUTEROL 2.5MG INH SOL UD 3ML (DUONEB) NEB SCH ×6 (03:40→23:03)
[2022-03-25] MEDS: HEPARIN SOD (PORCINE) 5000UNITS/ML 1ML VIAL/SYRINGE SC SCH ×3 (05:14→22:12)
[2022-03-25 07:29] LABS: HEMATOCRIT 33.1 % (36.0-47.0); HEMOGLOBIN 10.2 g/dl (12.0-15.5); MEAN CORPUSCULAR HEMOGLOBIN 30.7 pg (27.0-33.0); MEAN CORPUSCULAR HGB CONC 30.8 g/dl (32.0-36.5); MEAN CORPUSCULAR VOLUME 99.7 fl (80.0-96.0); PLATELET COUNT, AUTOMATED 225 10^3/uL (150-450); RED BLOOD COUNT 3.32 10^6/uL (4.00-5.40); WHITE BLOOD COUNT 15.4 10^3/uL (4.0-10.0)
[2022-03-25 08:04] LABS: BLOOD UREA NITROGEN 13 MG/DL (7-18); C REACTIVE PROTEIN QUANTITATIV 9.34 MG/DL (0.00-0.30); CALCIUM LEVEL 8.7 MG/DL (8.8-10.2); CARBON DIOXIDE LEVEL 32 MEQ/L (21-32); CHLORIDE LEVEL 105 MEQ/L (98-107); CREATININE FOR GFR 0.65 MG/DL (0.55-1.30); GLOMERULAR FILTRATION RATE > 60.0 (>39); GLUCOSE, FASTING 112 MG/DL (70-100); POTASSIUM SERUM 3.7 MEQ/L (3.5-5.1); SODIUM LEVEL 141 MEQ/L (136-145)
[2022-03-25] MEDS: DOCUSATE SODIUM 100MG CAPSULE PO SCH ×2 (08:54→20:25)
[2022-03-25] MEDS: MIRALAX *UNIT DOSE* 17GM PACKET PO SCH ×2 (08:55→20:25)
[2022-03-25] MEDS: SENNA 8.6 MG TAB (SENOKOT) PO SCH ×2 (08:55→20:26)
[2022-03-25 09:12] LABS: ERYTHROCYTE SEDIMENTATION RATE 60 mm/hr (0-30)
[2022-03-25] MEDS: predniSONE 20 MG TAB PO SCH (09:36)
[2022-03-25] MEDS: PANTOPRAZOLE 40MG TAB (PROTONIX) PO SCH (09:36)
[2022-03-25] MEDS: amLODIPine 5 MG TAB PO SCH (09:36)
[2022-03-25] MEDS: rOPINIRole 0.25 MG TAB(REQUIP) PO SCH ×2 (09:36→20:24)
[2022-03-25] MEDS: FUROSEMIDE 20 MG TAB PO SCH (09:37)
[2022-03-25] MEDS: prednisoLONE ACET 1% OPHTH SUSP 5ML OS SCH ×2 (09:37→20:24)
[2022-03-25] MEDS: GABAPENTIN 400MG CAP PO SCH ×3 (09:37→20:24)
[2022-03-25] MEDS: VANCOMYCIN HCL 750 MG, VIAL MATE ADAPTER 1 EACH in D5W 250 ML IV SCH ×2 (10:36→22:12)
[2022-03-25] MEDS: VANCOMYCIN HCL 500 MG in D5W MINI-BAG PLUS 100 ML IV SCH ×2 (12:01→23:29)
[2022-03-25] MEDS: oxyCODONE 5MG TAB PO PRN (16:24)
[2022-03-25] MEDS: ATORVASTATIN 20 MG TAB PO SCH (20:24)
[2022-03-26] VITALS: BP 164/78
[2022-03-26] MEDS: MEROPENEM INJ 1 GM in IV 1 EA IV SCH ×3 (01:19→17:55)
[2022-03-26] MEDS: IPRATROPIUM 0.5MG/ALBUTEROL 2.5MG INH SOL UD 3ML (DUONEB) NEB SCH ×2 (03:53→08:18)
[2022-03-26 04:00] VITALS: BP 156/73
[2022-03-26] MEDS: HEPARIN SOD (PORCINE) 5000UNITS/ML 1ML VIAL/SYRINGE SC SCH ×3 (05:35→21:33)
[2022-03-26 06:02] LABS: HEMATOCRIT 33.8 % (36.0-47.0); HEMOGLOBIN 10.6 g/dl (12.0-15.5); MEAN CORPUSCULAR HEMOGLOBIN 31.1 pg (27.0-33.0); MEAN CORPUSCULAR HGB CONC 31.4 g/dl (32.0-36.5); MEAN CORPUSCULAR VOLUME 99.1 fl (80.0-96.0); PLATELET COUNT, AUTOMATED 269 10^3/uL (150-450); RED BLOOD COUNT 3.41 10^6/uL (4.00-5.40); WHITE BLOOD COUNT 14.8 10^3/uL (4.0-10.0)
[2022-03-26 06:46] LABS: BLOOD UREA NITROGEN 11 MG/DL (7-18); C REACTIVE PROTEIN QUANTITATIV 5.28 MG/DL (0.00-0.30); CARBON DIOXIDE LEVEL 34 MEQ/L (21-32); CHLORIDE LEVEL 104 MEQ/L (98-107); GLOMERULAR FILTRATION RATE > 60.0 (>39); GLUCOSE, FASTING 93 MG/DL (70-100); POTASSIUM SERUM 3.5 MEQ/L (3.5-5.1); SODIUM LEVEL 141 MEQ/L (136-145)
[2022-03-26 06:52] LABS: ERYTHROCYTE SEDIMENTATION RATE 53 mm/hr (0-30)
[2022-03-26] MEDS ORDERED: POTASSIUM CHLORIDE 10MEQ SR TABLET PO ONE (07:05)
[2022-03-26 08:00] VITALS: BP 160/56
[2022-03-26] MEDS: DOCUSATE SODIUM 100MG CAPSULE PO SCH ×2 (09:00→21:00)
[2022-03-26] MEDS: MIRALAX *UNIT DOSE* 17GM PACKET PO SCH ×2 (09:00→21:00)
[2022-03-26] MEDS: predniSONE 20 MG TAB PO SCH (09:50)
[2022-03-26] MEDS: rOPINIRole 0.25 MG TAB(REQUIP) PO SCH ×2 (09:51→21:33)
[2022-03-26] MEDS: FUROSEMIDE 20 MG TAB PO SCH (09:51)
[2022-03-26] MEDS: SENNA 8.6 MG TAB (SENOKOT) PO SCH ×2 (09:52→21:00)
[2022-03-26] MEDS: PANTOPRAZOLE 40MG TAB (PROTONIX) PO SCH (09:52)
[2022-03-26] MEDS: GABAPENTIN 400MG CAP PO SCH ×3 (09:52→21:33)
[2022-03-26] MEDS: prednisoLONE ACET 1% OPHTH SUSP 5ML OS SCH ×2 (09:53→21:33)
[2022-03-26] MEDS: VANCOMYCIN HCL 750 MG, VIAL MATE ADAPTER 1 EACH in D5W 250 ML IV SCH ×2 (11:01→23:06)
[2022-03-26 12:00] VITALS: BP 162/72
[2022-03-26] MEDS: VANCOMYCIN HCL 500 MG in D5W MINI-BAG PLUS 100 ML IV SCH (12:15)
[2022-03-26] MEDS: oxyCODONE 5MG TAB PO PRN ×2 (12:19→21:32)
[2022-03-26 16:00] VITALS: BP 160/72
[2022-03-26 20:58] VITALS: BP 148/75
[2022-03-26] MEDS: ADVAIR HFA 45/21MCG INHALER INH SCH (21:00)
[2022-03-26] MEDS: ATORVASTATIN 20 MG TAB PO SCH (21:33)
[2022-03-27] MEDS: VANCOMYCIN HCL 500 MG in D5W MINI-BAG PLUS 100 ML IV SCH ×2 (01:30→12:51)
[2022-03-27] MEDS: MEROPENEM INJ 1 GM in IV 1 EA IV SCH ×3 (02:33→17:58)
[2022-03-27 05:57] VITALS: BP 156/86
[2022-03-27] MEDS: HEPARIN SOD (PORCINE) 5000UNITS/ML 1ML VIAL/SYRINGE SC SCH ×3 (06:01→20:52)
[2022-03-27 06:25] LABS: HEMOGLOBIN 11.2 g/dl (12.0-15.5); MEAN CORPUSCULAR HEMOGLOBIN 31.1 pg (27.0-33.0); MEAN CORPUSCULAR HGB CONC 31.1 g/dl (32.0-36.5); PLATELET COUNT, AUTOMATED 267 10^3/uL (150-450); WHITE BLOOD COUNT 16.1 10^3/uL (4.0-10.0)
[2022-03-27 06:59] LABS: ERYTHROCYTE SEDIMENTATION RATE 60 mm/hr (0-30)
[2022-03-27 07:04] LABS: BLOOD UREA NITROGEN 12 MG/DL (7-18); C REACTIVE PROTEIN QUANTITATIV 2.97 MG/DL (0.00-0.30); CALCIUM LEVEL 9.1 MG/DL (8.8-10.2); CARBON DIOXIDE LEVEL 32 MEQ/L (21-32); CHLORIDE LEVEL 103 MEQ/L (98-107); CREATININE FOR GFR 0.64 MG/DL (0.55-1.30); GLOMERULAR FILTRATION RATE > 60.0 (>39); GLUCOSE, FASTING 93 MG/DL (70-100); POTASSIUM SERUM 3.9 MEQ/L (3.5-5.1); SODIUM LEVEL 139 MEQ/L (136-145)
[2022-03-27] MEDS: ADVAIR HFA 45/21MCG INHALER INH SCH ×2 (07:26→19:55)
[2022-03-27] MEDS: MIRALAX *UNIT DOSE* 17GM PACKET PO SCH ×2 (09:00→20:54)
[2022-03-27] MEDS: DOCUSATE SODIUM 100MG CAPSULE PO SCH ×2 (09:43→20:54)
[2022-03-27] MEDS: PANTOPRAZOLE 40MG TAB (PROTONIX) PO SCH (09:43)
[2022-03-27] MEDS: SENNA 8.6 MG TAB (SENOKOT) PO SCH ×2 (09:43→20:55)
[2022-03-27] MEDS: predniSONE 20 MG TAB PO SCH (09:43)
[2022-03-27] MEDS: rOPINIRole 0.25 MG TAB(REQUIP) PO SCH ×2 (09:44→20:51)
[2022-03-27] MEDS: GABAPENTIN 400MG CAP PO SCH ×3 (09:44→20:51)
[2022-03-27] MEDS: FUROSEMIDE 20 MG TAB PO SCH (09:45)
[2022-03-27] MEDS: prednisoLONE ACET 1% OPHTH SUSP 5ML OS SCH ×2 (09:46→20:52)
[2022-03-27] MEDS: VANCOMYCIN HCL 750 MG, VIAL MATE ADAPTER 1 EACH in D5W 250 ML IV SCH ×2 (11:37→22:44)
[2022-03-27 14:00] VITALS: BP 122/55
[2022-03-27 20:51] VITALS: BP 151/78
[2022-03-27] MEDS: ATORVASTATIN 20 MG TAB PO SCH (20:51)
[2022-03-27] MEDS: ACETAMINOPHEN TAB 650MG DOSE (2X325MG) PO PRN (20:52)
[2022-03-28] MEDS: VANCOMYCIN HCL 500 MG in D5W MINI-BAG PLUS 100 ML IV SCH ×2 (00:26→12:45)
[2022-03-28] MEDS: MEROPENEM INJ 1 GM in IV 1 EA IV SCH ×2 (01:33→10:13)
[2022-03-28] MEDS: HEPARIN SOD (PORCINE) 5000UNITS/ML 1ML VIAL/SYRINGE SC SCH ×3 (05:27→21:28)
[2022-03-28 05:32] VITALS: BP 145/63
[2022-03-28 07:04] LABS: BASO # 0.1 10^3/uL (0.0-0.2); BASO % 0.3 % (0.0-1.0); EOS # 0.1 10^3/uL (0.0-0.5); EOS % 0.6 % (0.0-3.0); HEMATOCRIT 36.2 % (36.0-47.0); HEMOGLOBIN 11.1 g/dl (12.0-15.5); LYMPH # 3.3 10^3/uL (1.5-5.0); LYMPH % 19.3 % (24.0-44.0); MEAN CORPUSCULAR HEMOGLOBIN 30.9 pg (27.0-33.0); MEAN CORPUSCULAR HGB CONC 30.7 g/dl (32.0-36.5); MEAN CORPUSCULAR VOLUME 100.8 fl (80.0-96.0); MONO # 1.5 10^3/uL (0.0-0.8); MONO % 8.8 % (2.0-8.0); NEUTROPHILS # 11.3 10^3/uL (1.5-8.5); NEUTROPHILS % 66.5 % (36.0-66.0); PLATELET COUNT, AUTOMATED 273 10^3/uL (150-450); RED BLOOD COUNT 3.59 10^6/uL (4.00-5.40)
[2022-03-28] MEDS: ADVAIR HFA 45/21MCG INHALER INH SCH ×2 (07:34→20:27)
[2022-03-28 07:55] LABS: BLOOD UREA NITROGEN 19 MG/DL (7-18); CALCIUM LEVEL 8.6 MG/DL (8.8-10.2); CARBON DIOXIDE LEVEL 31 MEQ/L (21-32); CHLORIDE LEVEL 105 MEQ/L (98-107); CREATININE FOR GFR 0.67 MG/DL (0.55-1.30); GLOMERULAR FILTRATION RATE > 60.0 (>39); GLUCOSE, FASTING 112 MG/DL (70-100); POTASSIUM SERUM 3.4 MEQ/L (3.5-5.1); SODIUM LEVEL 143 MEQ/L (136-145)
[2022-03-28] MEDS: rOPINIRole 0.25 MG TAB(REQUIP) PO SCH ×2 (08:42→21:25)
[2022-03-28] MEDS: DOCUSATE SODIUM 100MG CAPSULE PO SCH ×2 (08:42→20:49)
[2022-03-28] MEDS: FUROSEMIDE 20 MG TAB PO SCH (08:45)
[2022-03-28] MEDS: prednisoLONE ACET 1% OPHTH SUSP 5ML OS SCH ×2 (08:46→21:26)
[2022-03-28] MEDS: GABAPENTIN 400MG CAP PO SCH ×3 (08:46→21:25)
[2022-03-28] MEDS: SENNA 8.6 MG TAB (SENOKOT) PO SCH ×2 (08:46→20:49)
[2022-03-28] MEDS: MIRALAX *UNIT DOSE* 17GM PACKET PO SCH ×2 (08:46→20:49)
[2022-03-28] MEDS: PANTOPRAZOLE 40MG TAB (PROTONIX) PO SCH (08:46)
[2022-03-28 10:00] VITALS: BP 141/69
[2022-03-28 10:00] LABS: ERYTHROCYTE SEDIMENTATION RATE 12 mm/hr (0-30)
[2022-03-28] MEDS: oxyCODONE 5MG TAB PO PRN (10:22)
[2022-03-28] MEDS: VANCOMYCIN HCL 750 MG, VIAL MATE ADAPTER 1 EACH in D5W 250 ML IV SCH (11:34)
[2022-03-28 14:00] VITALS: BP 133/61
[2022-03-28] MEDS ORDERED: POTASSIUM CHLORIDE 10MEQ SR TABLET PO ONE (17:20)
[2022-03-28] MEDS: cefTRIAXone SOD 2 GM in D5W MINI-BAG PLUS 50 ML IV SCH (18:01)
[2022-03-28] MEDS: ACETAMINOPHEN TAB 650MG DOSE (2X325MG) PO PRN (21:25)
[2022-03-28] MEDS: ATORVASTATIN 20 MG TAB PO SCH (21:25)
[2022-03-28 22:00] VITALS: BP 156/82
[2022-03-29] MEDS: HEPARIN SOD (PORCINE) 5000UNITS/ML 1ML VIAL/SYRINGE SC SCH ×2 (05:26→14:58)
[2022-03-29] MEDS: oxyCODONE 5MG TAB PO PRN ×2 (05:27→15:42)
[2022-03-29 06:00] VITALS: BP 138/67
[2022-03-29 06:59] LABS: HEMATOCRIT 36.4 % (36.0-47.0); HEMOGLOBIN 11.2 g/dl (12.0-15.5); MEAN CORPUSCULAR HGB CONC 30.8 g/dl (32.0-36.5); MEAN CORPUSCULAR VOLUME 100.8 fl (80.0-96.0); PLATELET COUNT, AUTOMATED 266 10^3/uL (150-450); RED BLOOD COUNT 3.61 10^6/uL (4.00-5.40); WHITE BLOOD COUNT 13.7 10^3/uL (4.0-10.0)
[2022-03-29 07:36] LABS: BLOOD UREA NITROGEN 16 MG/DL (7-18); CALCIUM LEVEL 8.9 MG/DL (8.8-10.2); CARBON DIOXIDE LEVEL 31 MEQ/L (21-32); CHLORIDE LEVEL 105 MEQ/L (98-107); CREATININE FOR GFR 0.64 MG/DL (0.55-1.30); GLOMERULAR FILTRATION RATE > 60.0 (>39); GLUCOSE, FASTING 97 MG/DL (70-100); POTASSIUM SERUM 4.1 MEQ/L (3.5-5.1); SODIUM LEVEL 140 MEQ/L (136-145)
[2022-03-29] MEDS ORDERED: LIDOCAINE 1% MDV 20ML VIAL As Ordered ONE (08:34)
[2022-03-29] MEDS ORDERED: FURO20TA2 PO (09:37)
[2022-03-29] MEDS ORDERED: AMLO1TAB25 PO (09:37)
[2022-03-29] MEDS ORDERED: LISI10TA22 PO (09:37)
[2022-03-29 09:55] LABS: ATYPICAL LYMPH 2 % (0-5); EOSINOPHILS 2 % (0-3); LYMPHOCYTES 25 % (16-44); METAMYELOCYTES 3 % (0-0); MONOCYTES 7 % (0-5); MYELOCYTES 2 % (0-0); NEUTROPHILS 52 % (28-66)
[2022-03-29 09:56] LABS: HYPOCHROMASIA 1+; PLATELET ESTIMATE NORMAL (NORMAL)
[2022-03-29] MEDS: cefTRIAXone SOD 2 GM in D5W MINI-BAG PLUS 50 ML IV SCH (10:07)
[2022-03-29] MEDS: SENNA 8.6 MG TAB (SENOKOT) PO SCH (10:07)
[2022-03-29] MEDS: MIRALAX *UNIT DOSE* 17GM PACKET PO SCH (10:07)
[2022-03-29] MEDS: DOCUSATE SODIUM 100MG CAPSULE PO SCH (10:08)
[2022-03-29] MEDS: GABAPENTIN 400MG CAP PO SCH ×2 (10:08→14:58)
[2022-03-29] MEDS: rOPINIRole 0.25 MG TAB(REQUIP) PO SCH (10:08)
[2022-03-29] MEDS: PANTOPRAZOLE 40MG TAB (PROTONIX) PO SCH (10:09)
[2022-03-29] MEDS: prednisoLONE ACET 1% OPHTH SUSP 5ML OS SCH (10:09)
[2022-03-29] MEDS: FUROSEMIDE 20 MG TAB PO SCH (10:09)
[2022-03-29 10:10] VITALS: BP 146/74
[2022-03-29] MEDS ORDERED: SODIUM CHLORIDE 0.9% INJ 10 ML SYR IV PRN (10:45)
[2022-03-29] MEDS: ADVAIR HFA 45/21MCG INHALER INH SCH (12:02)
[2022-03-29 14:00] VITALS: BP 149/68
[2022-03-29] MEDS ORDERED: OXYC-517 PO (14:32)
[2022-03-29] MEDS ORDERED: SODIUM CHLORIDE 0.9% INJ 10 ML SYR IV SCH (18:00)
== END 2022-03-29 15:45 | disposition home health service (06) | DRG 872 ==
LOC: M ED 02:34 → M ED INP 16:48 → M PCU 03-23 05:21 → M MS5PR 03-26 20:08
PROVIDERS: ADMIT Internal Medicine; ATTEND Internal Medicine
PROC: B246ZZZ Ultrasonography of Right and Left Heart (ICD-10-PCS; 2022-03-22)
PROC: 02HV33Z Insertion of Infusion Device into Superior Vena Cava, Percutaneous Approach (ICD-10-PCS; principal; 2022-03-29 09:00)
DX: A41.9 Sepsis, unspecified organism (principal); M46.25 Osteomyelitis of vertebra, thoracolumbar region; J96.11 Chronic respiratory failure with hypoxia; J96.12 Chronic respiratory failure with hypercapnia; I50.32 Chronic diastolic (congestive) heart failure; J44.1 Chronic obstructive pulmonary disease with (acute) exacerbation; E66.2 Morbid (severe) obesity with alveolar hypoventilation; I13.0 Hypertensive heart and chronic kidney disease with heart failure and stage 1 through stage 4 chronic kidney disease, or unspecified chronic kidney disease; Z68.42 Body mass index [BMI] 45.0-49.9, adult; Z79.2 Long term (current) use of antibiotics; Z99.81 Dependence on supplemental oxygen; K59.00 Constipation, unspecified; Z86.711 Personal history of pulmonary embolism; M43.25 Fusion of spine, thoracolumbar region; I27.20 Pulmonary hypertension, unspecified; G25.81 Restless legs syndrome; K21.9 Gastro-esophageal reflux disease without esophagitis; N18.30 Chronic kidney disease, stage 3 unspecified; Z90.2 Acquired absence of lung [part of]; Z85.118 Personal history of other malignant neoplasm of bronchus and lung; Z90.49 Acquired absence of other specified parts of digestive tract; G43.909 Migraine, unspecified, not intractable, without status migrainosus; Z20.822 Contact with and (suspected) exposure to COVID-19; Z79.891 Long term (current) use of opiate analgesic; Z79.899 Other long term (current) drug therapy; Z88.5 Allergy status to narcotic agent; Z88.8 Allergy status to other drugs, medicaments and biological substances; E87.6 Hypokalemia; L89.101 Pressure ulcer of unspecified part of back, stage 1; G62.9 Polyneuropathy, unspecified; M19.90 Unspecified osteoarthritis, unspecified site; F32.A Depression, unspecified; F41.9 Anxiety disorder, unspecified; D64.9 Anemia, unspecified

== ENCOUNTER → 2022-04-07 | Outpatient (CLI) | payer MEDICARE, BC, OTHER ==
[~2022-04-07] MED LIST changes: +AMLO1TAB25 PO; +CAL-TAB2 PO; +CEFT2INJ4 IV; +FLUC150T9 PO; +GUAI200T6 PO; +LIDO5TD TD; +LISI10TA22 PO; +NYST-38 SS; -NYST50SS SS; +ONDA-84 PO; +PRED50TA PO; +PREDOPD OS; +VITA-158 PO; +VITA500054 PO; +VITA500C24 PO; +ZINC220CA PO; +ZYPR5TAB2 PO
[2022-04-07 16:06] LABS: HEMOGLOBIN 10.8 g/dl (12.0-15.5); MEAN CORPUSCULAR HEMOGLOBIN 31.1 pg (27.0-33.0); MEAN CORPUSCULAR HGB CONC 30.9 g/dl (32.0-36.5); MEAN CORPUSCULAR VOLUME 100.9 fl (80.0-96.0); PLATELET COUNT, AUTOMATED 288 10^3/uL (150-450); RED BLOOD COUNT 3.47 10^6/uL (4.00-5.40)
[2022-04-07 16:48] LABS: ERYTHROCYTE SEDIMENTATION RATE 45 mm/hr (0-30)
[2022-04-07 17:18] LABS: ALBUMIN 3.6 GM/DL (3.2-5.2); BILIRUBIN,TOTAL 0.1 MG/DL (0.2-1.0); C REACTIVE PROTEIN QUANTITATIV 0.78 MG/DL (0.00-0.30); CALCIUM LEVEL 9.5 MG/DL (8.8-10.2); CREATININE FOR GFR 1.06 MG/DL (0.55-1.30); GLOMERULAR FILTRATION RATE 54.6 (>39); POTASSIUM SERUM 4.8 MEQ/L (3.5-5.1); TOTAL PROTEIN 7.2 GM/DL (6.4-8.2)
== END ==
LOC: M PLALAB 14:11
PROVIDERS: ATTEND Internal Medicine Infectious Disease
DX: T81.49XA Infection following a procedure, other surgical site, initial encounter (principal); Z79.899 Other long term (current) drug therapy

== ENCOUNTER → 2022-04-11 | Outpatient (REF) | payer MEDICARE, BC, OTHER ==
[~2022-04-11] MED LIST changes: -CAL-TAB2 PO; -CEFT2INJ4 IV; -FLUC150T9 PO; -GUAI200T6 PO; -LIDO5TD TD; -NYST-38 SS; +NYST50SS SS; -ONDA-84 PO; -PRED50TA PO; -VITA-158 PO; -VITA500054 PO; -VITA500C24 PO; -ZINC220CA PO; -ZYPR5TAB2 PO
[2022-04-11 13:58] LABS: BASO % 0.3 % (0.0-1.0); EOS # 0.4 10^3/uL (0.0-0.5); HEMATOCRIT 32.7 % (36.0-47.0); HEMOGLOBIN 9.8 g/dl (12.0-15.5); LYMPH # 1.8 10^3/uL (1.5-5.0); LYMPH % 24.8 % (24.0-44.0); MEAN CORPUSCULAR HEMOGLOBIN 31.1 pg (27.0-33.0); MEAN CORPUSCULAR VOLUME 103.8 fl (80.0-96.0); MONO # 0.7 10^3/uL (0.0-0.8); MONO % 9.3 % (2.0-8.0); NEUTROPHILS # 4.3 10^3/uL (1.5-8.5); NEUTROPHILS % 59.3 % (36.0-66.0); PLATELET COUNT, AUTOMATED 213 10^3/uL (150-450); RED BLOOD COUNT 3.15 10^6/uL (4.00-5.40); WHITE BLOOD COUNT 7.2 10^3/uL (4.0-10.0)
[2022-04-11 14:42] LABS: ALBUMIN 3.4 GM/DL (3.2-5.2); ALT/SGPT 24 U/L (12-78); BILIRUBIN,TOTAL 0.2 MG/DL (0.2-1.0); BLOOD UREA NITROGEN 18 MG/DL (7-18); CALCIUM LEVEL 8.4 MG/DL (8.8-10.2); CARBON DIOXIDE LEVEL 32 MEQ/L (21-32); CHLORIDE LEVEL 102 MEQ/L (98-107); CREATININE FOR GFR 0.87 MG/DL (0.55-1.30); GLOMERULAR FILTRATION RATE > 60.0 (>39); GLUCOSE, FASTING 79 MG/DL (70-100); SODIUM LEVEL 139 MEQ/L (136-145); TOTAL PROTEIN 6.5 GM/DL (6.4-8.2)
[2022-04-11 15:49] LABS: ERYTHROCYTE SEDIMENTATION RATE 3 mm/hr (0-30)
== END ==
LOC: M SHH 13:14
PROVIDERS: ATTEND Internal Medicine Infectious Disease
DX: Z98.890 Other specified postprocedural states (principal); Z79.899 Other long term (current) drug therapy

== ENCOUNTER 2022-04-21 16:36 | Inpatient (IN) | payer MEDICARE, BC, OTHER ==
[~2022-04-21] VITALS: Ht 154.9 cm; Wt 109.0 kg
[2022-04-21] MEDS ORDERED: SODIUM CHLORIDE 0.9% INJ 10 ML SYR IV PRN ×2 (17:15→19:30)
[2022-04-21] MEDS ORDERED: SODIUM CHLORIDE 0.9% INJ 10 ML SYR IV SCH (18:00)
[2022-04-21 18:01] LABS: BASO % 0.1 % (0.0-1.0); EOS # 0.4 10^3/uL (0.0-0.5); EOS % 4.9 % (0.0-3.0); HEMATOCRIT 31.7 % (36.0-47.0); HEMOGLOBIN 9.4 g/dl (12.0-15.5); LYMPH # 1.1 10^3/uL (1.5-5.0); LYMPH % 12.5 % (24.0-44.0); MEAN CORPUSCULAR HEMOGLOBIN 31.3 pg (27.0-33.0); MEAN CORPUSCULAR HGB CONC 29.7 g/dl (32.0-36.5); MEAN CORPUSCULAR VOLUME 105.7 fl (80.0-96.0); MONO # 0.7 10^3/uL (0.0-0.8); MONO % 8.5 % (2.0-8.0); NEUTROPHILS # 6.3 10^3/uL (1.5-8.5); NEUTROPHILS % 73.5 % (36.0-66.0); PLATELET COUNT, AUTOMATED 183 10^3/uL (150-450); WHITE BLOOD COUNT 8.5 10^3/uL (4.0-10.0)
[2022-04-21 18:14] LABS: RSV AMPLIFICATION NEGATIVE (NEGATIVE)
[2022-04-21 18:35] LABS: ALBUMIN 3.5 G/DL (3.2-5.2); ALT/SGPT 19 U/L (7.0-40); BILIRUBIN,TOTAL < 0.2 MG/DL (0.3-1.2); BLOOD UREA NITROGEN 40 MG/DL (9-23); CALCIUM LEVEL 8.3 MG/DL (8.3-10.6); CARBON DIOXIDE LEVEL 33 MMOL/L (20-31); CHLORIDE LEVEL 100 MMOL/L (98-107); CREATININE FOR GFR 1.81 MG/DL (0.55-1.30); GLOMERULAR FILTRATION RATE 29.4 (>39); GLUCOSE, FASTING 88 MG/DL (74-106); POTASSIUM SERUM 5.5 MMOL/L (3.5-5.1); SODIUM LEVEL 138 MMOL/L (136-145); TOTAL PROTEIN 6.3 G/DL (5.7-8.2)
[2022-04-21] MEDS ORDERED: NS 1,000 ML IV SCH (18:45)
[2022-04-21 19:28] LABS: ABG BASE EXCESS 0.3 (-2.0-2.0); ABG HCO3 28.3 MEQ/L (22.0-26.0); ABG O2 SATURATION 91.9 % (95.0-99.0); ABG PARTIAL PRESSURE O2 63.9 mmHg (75.0-100.0); ABG STANDARD HCO3 24.7 MEQ/L (22.0-26.0); ABG TOTAL CO2 30.3 MEQ/L (23.0-31.0); ABG pH (ARTERIAL) 7.257 UNITS (7.350-7.450)
[2022-04-21] MEDS: LR 1,000 ML IV SCH (19:30)
[2022-04-21 20:13] LABS: FREE T4 0.93 NG/DL (0.89-1.76); THYROID STIMULATING HORMONE 1.374 uIU/ML (0.55-4.78)
[2022-04-21 20:26] LABS: CREATININE,RANDOM URINE 101.5 MG/DL
[2022-04-21] MEDS: ACETAMINOPHEN TAB 650MG DOSE (2X325MG) PO PRN (21:47)
[2022-04-21] MEDS: DOCUSATE SODIUM 100MG CAPSULE PO SCH (21:47)
[2022-04-21] MEDS: cefTRIAXone SOD 2 GM in D5W MINI-BAG PLUS 50 ML IV SCH (21:47)
[2022-04-21 22:05] VITALS: BP 149/62
[2022-04-21] MEDS ORDERED: PERC10TA26 PO (22:39)
[2022-04-21] MEDS ORDERED: LISI10TA22 PO (22:39)
[2022-04-21] MEDS ORDERED: FLUC150T9 PO (22:39)
[2022-04-21] MEDS ORDERED: ZYPR5TAB2 PO (22:39)
[2022-04-21] MEDS ORDERED: ONDA-84 PO (22:39)
[2022-04-21] MEDS ORDERED: FURO20TA2 PO (22:39)
[2022-04-21] MEDS ORDERED: AMLO1TAB25 PO (22:39)
[2022-04-21] MEDS ORDERED: CAL-TAB2 PO (22:39)
[2022-04-21] MEDS ORDERED: HOME MED LIST COMPLETE! XX SCH (22:40)
[2022-04-22] VITALS (8 sets, daily range): BP systolic 116–158; BP diastolic 56–90; O2SAT 93–97
[2022-04-22] MEDS ORDERED: ONDANSETRON 4MG TAB PO PRN (01:25)
[2022-04-22] MEDS ORDERED: SUMAtriptan SUCCINATE 25 MG TAB PO PRN (01:25)
[2022-04-22] MEDS ORDERED: ALBUTEROL 90 MCG/ACT 8GM HFA INHALER INH PRN (01:25)
[2022-04-22] MEDS: LR 1,000 ML IV SCH ×2 (02:15→08:35)
[2022-04-22 05:59] LABS: HEMATOCRIT 30.4 % (36.0-47.0); HEMOGLOBIN 9.1 g/dl (12.0-15.5); MEAN CORPUSCULAR HEMOGLOBIN 31.4 pg (27.0-33.0); MEAN CORPUSCULAR HGB CONC 29.9 g/dl (32.0-36.5); MEAN CORPUSCULAR VOLUME 104.8 fl (80.0-96.0); PLATELET COUNT, AUTOMATED 175 10^3/uL (150-450); WHITE BLOOD COUNT 6.4 10^3/uL (4.0-10.0)
[2022-04-22 06:00] LABS: ABG BASE EXCESS 3.5 (-2.0-2.0); ABG O2 SATURATION 92.7 % (95.0-99.0); ABG PARTIAL PRESSURE CO2 64.2 mmHg (35.0-45.0); ABG PARTIAL PRESSURE O2 64.5 mmHg (75.0-100.0); ABG STANDARD HCO3 27.6 MEQ/L (22.0-26.0); ABG pH (ARTERIAL) 7.302 UNITS (7.350-7.450)
[2022-04-22] MEDS: SODIUM CHLORIDE 0.9% INJ 10 ML SYR IV SCH ×2 (06:00→18:41)
[2022-04-22 06:09] LABS: INR 0.93; PROTHROMBIN TIME 12.7 SECONDS (12.5-14.5)
[2022-04-22 06:10] LABS: PARTIAL THROMBOPLASTIN TIME 22.6 SECONDS (24.8-34.2)
[2022-04-22] MEDS: HEPARIN SOD (PORCINE) 5000UNITS/ML 1ML VIAL/SYRINGE SC SCH ×3 (06:16→22:00)
[2022-04-22 07:27] LABS: BLOOD UREA NITROGEN 26 MG/DL (9-23); CALCIUM LEVEL 8.1 MG/DL (8.3-10.6); CARBON DIOXIDE LEVEL 30 MMOL/L (20-31); CHLORIDE LEVEL 104 MMOL/L (98-107); CREATININE FOR GFR 1.14 MG/DL (0.55-1.30); GLOMERULAR FILTRATION RATE 50.2 (>39); GLUCOSE, FASTING 89 MG/DL (74-106); POTASSIUM SERUM 5.2 MMOL/L (3.5-5.1); SODIUM LEVEL 140 MMOL/L (136-145)
[2022-04-22] MEDS: ADVAIR HFA 230/21MCG INHALER INH SCH ×2 (07:52→19:46)
[2022-04-22] MEDS: LACTOBACILLUS ACIDOPHILUS CAP (BACID) PO SCH ×2 (08:37→21:04)
[2022-04-22] MEDS: DOCUSATE SODIUM 100MG CAPSULE PO SCH ×2 (08:37→21:00)
[2022-04-22] MEDS: ACETAMINOPHEN TAB 650MG DOSE (2X325MG) PO PRN (08:38)
[2022-04-22] MEDS: PANTOPRAZOLE 40MG TAB (PROTONIX) PO SCH ×2 (08:41→13:18)
[2022-04-22] MEDS: OLANZapine 2.5MG TABLET PO SCH ×2 (08:41→21:05)
[2022-04-22 08:59] LABS: ABG BASE EXCESS 3.5 (-2.0-2.0); ABG HCO3 30.5 MEQ/L (22.0-26.0); ABG O2 SATURATION 89.2 % (95.0-99.0); ABG PARTIAL PRESSURE CO2 59.2 mmHg (35.0-45.0); ABG PARTIAL PRESSURE O2 54.9 mmHg (75.0-100.0); ABG STANDARD HCO3 27.5 MEQ/L (22.0-26.0); ABG TOTAL CO2 32.3 MEQ/L (23.0-31.0)
[2022-04-22] MEDS: LIDOCAINE 5% (LIDODERM) PATCH TD SCH (09:00)
[2022-04-22] MEDS ORDERED: DICLOFENAC EPOLAMINE 1.3 % PATCH TOP SCH (09:00)
[2022-04-22 11:25] LABS: FOLATE > 24.0 NG/ML (>5.4); IRON (FE) 28 UG/DL (50-170); PERCENT SATURATION 9.1 % (13.2-45.0); TOTAL IRON BINDING CAPACITY 309 UG/DL (250-425); VITAMIN B12 LEVEL 794 PG/ML (211-911)
[2022-04-22] MEDS: ACETAMINOPHEN 325 MG TAB PO SCH ×2 (13:19→17:22)
[2022-04-22] MEDS: predniSONE 50 MG TAB PO SCH (13:20)
[2022-04-22] MEDS: IPRATROPIUM 0.5MG/ALBUTEROL 2.5MG INH SOL UD 3ML (DUONEB) NEB SCH ×2 (16:56→19:46)
[2022-04-22] MEDS ORDERED: ATORVASTATIN 20 MG TAB PO SCH (21:00)
[2022-04-22] MEDS ORDERED: rOPINIRole 0.25 MG TAB(REQUIP) PO SCH (21:00)
[2022-04-22] MEDS ORDERED: POTASSIUM CHLORIDE 10MEQ SR TABLET PO SCH (21:00)
[2022-04-22] MEDS: NYSTATIN 100,000 UNITS/GM TOPICAL PWD 15 GM TOP SCH (21:04)
[2022-04-22] MEDS: cefTRIAXone SOD 2 GM in D5W MINI-BAG PLUS 50 ML IV SCH (21:04)
[2022-04-22] MEDS: IBUPROFEN 600MG TAB PO PRN (21:05)
[2022-04-23] MEDS: ACETAMINOPHEN 325 MG TAB PO SCH ×3 (00:37→12:13)
[2022-04-23] MEDS: IPRATROPIUM 0.5MG/ALBUTEROL 2.5MG INH SOL UD 3ML (DUONEB) NEB SCH ×2 (01:14→07:57)
[2022-04-23 01:51] VITALS: BP 141/62
[2022-04-23 04:00] VITALS: BP 137/60
[2022-04-23 05:34] LABS: HEMATOCRIT 29.5 % (36.0-47.0); HEMOGLOBIN 9.2 g/dl (12.0-15.5); MEAN CORPUSCULAR HEMOGLOBIN 31.2 pg (27.0-33.0); MEAN CORPUSCULAR HGB CONC 31.2 g/dl (32.0-36.5); PLATELET COUNT, AUTOMATED 204 10^3/uL (150-450); RED BLOOD COUNT 2.95 10^6/uL (4.00-5.40); WHITE BLOOD COUNT 7.7 10^3/uL (4.0-10.0)
[2022-04-23 05:41] LABS: VENOUS BASE EXCESS 5.5 (-2.0-2.0); VENOUS O2 SATURATION 99.1 % (60.0-80.0); VENOUS PARTIAL PRESSURE CO2 49.9 mmHg (38.0-50.0); VENOUS PARTIAL PRESSURE O2 160.5 mmHg (30.0-50.0); VENOUS PH 7.411 UNITS (7.330-7.430); VENOUS STANDARD HCO3 29.5 MEQ/L; VENOUS TOTAL CO2 32.5 MEQ/L (24.0-28.0)
[2022-04-23] MEDS: SODIUM CHLORIDE 0.9% INJ 10 ML SYR IV SCH (06:07)
[2022-04-23] MEDS: HEPARIN SOD (PORCINE) 5000UNITS/ML 1ML VIAL/SYRINGE SC SCH (06:08)
[2022-04-23 06:23] LABS: BLOOD UREA NITROGEN 18 MG/DL (9-23); CALCIUM LEVEL 8.4 MG/DL (8.3-10.6); CARBON DIOXIDE LEVEL 32 MMOL/L (20-31); CHLORIDE LEVEL 104 MMOL/L (98-107); CREATININE FOR GFR 0.72 MG/DL (0.55-1.30); GLOMERULAR FILTRATION RATE > 60.0 (>39); GLUCOSE, FASTING 137 MG/DL (74-106); POTASSIUM SERUM 4.6 MMOL/L (3.5-5.1); SODIUM LEVEL 143 MMOL/L (136-145)
[2022-04-23 07:30] VITALS: BP 137/60
[2022-04-23] MEDS: ADVAIR HFA 230/21MCG INHALER INH SCH (07:56)
[2022-04-23 08:00] VITALS: BP 137/60
[2022-04-23] MEDS: LACTOBACILLUS ACIDOPHILUS CAP (BACID) PO SCH (08:14)
[2022-04-23] MEDS: OLANZapine 2.5MG TABLET PO SCH (08:14)
[2022-04-23] MEDS: predniSONE 50 MG TAB PO SCH (08:15)
[2022-04-23] MEDS: LIDOCAINE 5% (LIDODERM) PATCH TD SCH (08:17)
[2022-04-23] MEDS: DOCUSATE SODIUM 100MG CAPSULE PO SCH (08:17)
[2022-04-23 08:18] VITALS: BP 137/60
[2022-04-23] MEDS: NYSTATIN 100,000 UNITS/GM TOPICAL PWD 15 GM TOP SCH (08:19)
[2022-04-23] MEDS: IBUPROFEN 600MG TAB PO PRN (08:27)
[2022-04-23] MEDS ORDERED: rOPINIRole 0.25 MG TAB(REQUIP) PO SCH (09:00)
[2022-04-23] MEDS ORDERED: CEFT2INJ4 IV ×2 (10:28→10:59)
[2022-04-23] MEDS ORDERED: LIDO5TD TD (10:28)
[2022-04-23] MEDS ORDERED: PRED50TA PO (10:28)
[2022-04-23] MEDS ORDERED: VITA500C24 PO (12:44)
[2022-04-23] MEDS ORDERED: FERR325T3 PO (12:44)
[2022-04-23] MEDS ORDERED: cefTRIAXone SOD 2 GM in D5W MINI-BAG PLUS 50 ML IV ONE (13:00)
== END 2022-04-23 13:58 | disposition home health service (06) | DRG 682 ==
LOC: EDBD 16:36 → M ED 16:36 → M ED INP 19:27 → ENRESERV 20:39 → M PCU 22:06
PROVIDERS: ADMIT Family Medicine; ATTEND Family Medicine
DX: N17.9 Acute kidney failure, unspecified (principal); J96.21 Acute and chronic respiratory failure with hypoxia; J96.22 Acute and chronic respiratory failure with hypercapnia; G93.41 Metabolic encephalopathy; M46.25 Osteomyelitis of vertebra, thoracolumbar region; J44.1 Chronic obstructive pulmonary disease with (acute) exacerbation; E87.29 Other acidosis; Z85.118 Personal history of other malignant neoplasm of bronchus and lung; Z90.2 Acquired absence of lung [part of]; Z99.81 Dependence on supplemental oxygen; G47.33 Obstructive sleep apnea (adult) (pediatric); I50.9 Heart failure, unspecified; G25.81 Restless legs syndrome; K21.9 Gastro-esophageal reflux disease without esophagitis; I11.0 Hypertensive heart disease with heart failure; Z90.49 Acquired absence of other specified parts of digestive tract; E87.5 Hyperkalemia; E78.5 Hyperlipidemia, unspecified; Z79.2 Long term (current) use of antibiotics; Z79.891 Long term (current) use of opiate analgesic; Z79.899 Other long term (current) drug therapy; Z88.5 Allergy status to narcotic agent; Z88.8 Allergy status to other drugs, medicaments and biological substances; Z20.822 Contact with and (suspected) exposure to COVID-19; D53.9 Nutritional anemia, unspecified; F41.9 Anxiety disorder, unspecified; F32.A Depression, unspecified; D50.9 Iron deficiency anemia, unspecified; M54.9 Dorsalgia, unspecified; I67.9 Cerebrovascular disease, unspecified; B37.9 Candidiasis, unspecified; Z79.51 Long term (current) use of inhaled steroids

== ENCOUNTER → 2022-04-25 | Outpatient (REF) | payer MEDICARE, BC, OTHER ==
[~2022-04-25] MED LIST changes: +CAL-TAB2 PO; +CEFT2INJ4 IV; +FLUC150T9 PO; +LIDO5TD TD; +ONDA-84 PO; +PRED50TA PO; +VITA500C24 PO; +ZYPR5TAB2 PO
[2022-04-25 14:42] LABS: BASO % 0.3 % (0.0-1.0); EOS # 0.1 10^3/uL (0.0-0.5); EOS % 0.8 % (0.0-3.0); HEMATOCRIT 33.2 % (36.0-47.0); HEMOGLOBIN 10.2 g/dl (12.0-15.5); LYMPH # 2.4 10^3/uL (1.5-5.0); LYMPH % 23.5 % (24.0-44.0); MEAN CORPUSCULAR HEMOGLOBIN 31.3 pg (27.0-33.0); MEAN CORPUSCULAR HGB CONC 30.7 g/dl (32.0-36.5); MEAN CORPUSCULAR VOLUME 101.8 fl (80.0-96.0); MONO % 10.3 % (2.0-8.0); NEUTROPHILS # 6.5 10^3/uL (1.5-8.5); PLATELET COUNT, AUTOMATED 283 10^3/uL (150-450); RED BLOOD COUNT 3.26 10^6/uL (4.00-5.40); WHITE BLOOD COUNT 10.1 10^3/uL (4.0-10.0)
[2022-04-25 15:10] LABS: CHLORIDE LEVEL 102 MMOL/L (98-107); POTASSIUM SERUM 4.9 MMOL/L (3.5-5.1); SODIUM LEVEL 140 MMOL/L (136-145)
[2022-04-25 15:11] LABS: ALBUMIN 3.5 G/DL (3.2-5.2); CARBON DIOXIDE LEVEL 29 MMOL/L (20-31)
[2022-04-25 15:16] LABS: ALKALINE PHOSPHATASE 71 U/L (46-116); BLOOD UREA NITROGEN 13 MG/DL (9-23); CALCIUM LEVEL 8.6 MG/DL (8.3-10.6); GLUCOSE, FASTING 78 MG/DL (74-106)
[2022-04-25 15:17] LABS: ERYTHROCYTE SEDIMENTATION RATE 35 mm/hr (0-30)
[2022-04-25 15:18] LABS: ALT/SGPT 18 U/L (7.0-40); AST/SGOT 17 U/L (<34); BILIRUBIN,TOTAL 0.2 MG/DL (0.3-1.2); GLOMERULAR FILTRATION RATE > 60.0 (>39); TOTAL PROTEIN 6.4 G/DL (5.7-8.2)
== END ==
LOC: M SHH 14:22
PROVIDERS: ATTEND Internal Medicine Infectious Disease
DX: Z98.890 Other specified postprocedural states (principal); Z79.899 Other long term (current) drug therapy

== ENCOUNTER → 2022-05-02 | Outpatient (REF) | payer MEDICARE, BC, OTHER ==
[2022-05-02 13:45] LABS: ALBUMIN 3.7 G/DL (3.2-5.2); ALKALINE PHOSPHATASE 77 U/L (46-116); ALT/SGPT 28 U/L (7.0-40); AST/SGOT 16 U/L (<34); BILIRUBIN,TOTAL 0.2 MG/DL (0.3-1.2); BLOOD UREA NITROGEN 26 MG/DL (9-23); CALCIUM LEVEL 8.8 MG/DL (8.3-10.6); CARBON DIOXIDE LEVEL 32 MMOL/L (20-31); CHLORIDE LEVEL 99 MMOL/L (98-107); CREATININE FOR GFR 0.89 MG/DL (0.55-1.30); GLOMERULAR FILTRATION RATE > 60.0 (>39); GLUCOSE, FASTING 78 MG/DL (74-106); POTASSIUM SERUM 4.8 MMOL/L (3.5-5.1); SODIUM LEVEL 138 MMOL/L (136-145); TOTAL PROTEIN 6.7 G/DL (5.7-8.2)
[2022-05-02 13:49] LABS: BASO # 0.1 10^3/uL (0.0-0.2); BASO % 0.4 % (0.0-1.0); EOS # 0.4 10^3/uL (0.0-0.5); EOS % 2.7 % (0.0-3.0); HEMATOCRIT 35.8 % (36.0-47.0); HEMOGLOBIN 10.9 g/dl (12.0-15.5); LYMPH # 3.3 10^3/uL (1.5-5.0); LYMPH % 24.3 % (24.0-44.0); MEAN CORPUSCULAR HEMOGLOBIN 31.5 pg (27.0-33.0); MEAN CORPUSCULAR HGB CONC 30.4 g/dl (32.0-36.5); MEAN CORPUSCULAR VOLUME 103.5 fl (80.0-96.0); MONO # 1.1 10^3/uL (0.0-0.8); MONO % 8.1 % (2.0-8.0); NEUTROPHILS # 8.5 10^3/uL (1.5-8.5); NEUTROPHILS % 62.8 % (36.0-66.0); PLATELET COUNT, AUTOMATED 300 10^3/uL (150-450); RED BLOOD COUNT 3.46 10^6/uL (4.00-5.40); WHITE BLOOD COUNT 13.5 10^3/uL (4.0-10.0)
[2022-05-02 15:32] LABS: ERYTHROCYTE SEDIMENTATION RATE 26 mm/hr (0-30)
== END ==
LOC: M SHH 12:01
PROVIDERS: ATTEND Internal Medicine Infectious Disease
DX: Z98.890 Other specified postprocedural states (principal)

== ENCOUNTER 2022-05-28 14:19 | Inpatient (IN) | payer MEDICARE, BC, OTHER ==
[~2022-05-28] VITALS: Ht 154.9 cm; Wt 113.4 kg
[2022-05-28 06:40] VITALS: BP 141/64
[~2022-05-28 14:19] MED LIST changes: +NYST-38 SS; -NYST50SS SS
[2022-05-28] MEDS ORDERED: IPRATROPIUM 0.5MG/ALBUTEROL 2.5MG INH SOL UD 3ML (DUONEB) NEB ONE (15:00)
[2022-05-28] MEDS ORDERED: methylPREDNISolone 125MG 2ML VIAL IV ONE (15:00)
[2022-05-28 15:46] LABS: ALBUMIN 3.6 G/DL (3.2-5.2); ALKALINE PHOSPHATASE 83 U/L (46-116); ALT/SGPT 12 U/L (7.0-40); AST/SGOT 16 U/L (<34); BILIRUBIN,DIRECT < 0.1 MG/DL (<0.4); BILIRUBIN,TOTAL < 0.2 MG/DL (0.3-1.2); BLOOD UREA NITROGEN 29 MG/DL (9-23); CALCIUM LEVEL 8.2 MG/DL (8.3-10.6); CARBON DIOXIDE LEVEL 31 MMOL/L (20-31); CHLORIDE LEVEL 102 MMOL/L (98-107); CREATININE FOR GFR 1.14 MG/DL (0.55-1.30); GLOMERULAR FILTRATION RATE 50.2 (>39); GLUCOSE, FASTING 95 MG/DL (74-106); POTASSIUM SERUM 5.4 MMOL/L (3.5-5.1); SODIUM LEVEL 140 MMOL/L (136-145); TOTAL PROTEIN 6.5 G/DL (5.7-8.2)
[2022-05-28 15:48] LABS: THYROID STIMULATING HORMONE 0.961 uIU/ML (0.55-4.78)
[2022-05-28 15:50] LABS: OSMOLALITY SERUM 299 MOSM/KG (280-301)
[2022-05-28 16:04] LABS: BASO % 0.4 % (0.0-1.0); EOS # 0.2 10^3/uL (0.0-0.5); EOS % 2.1 % (0.0-3.0); HEMATOCRIT 34.1 % (36.0-47.0); LYMPH # 2.4 10^3/uL (1.5-5.0); LYMPH % 21.6 % (24.0-44.0); MEAN CORPUSCULAR HEMOGLOBIN 31.4 pg (27.0-33.0); MEAN CORPUSCULAR HGB CONC 29.3 g/dl (32.0-36.5); MEAN CORPUSCULAR VOLUME 107.2 fl (80.0-96.0); MONO # 1.1 10^3/uL (0.0-0.8); MONO % 9.4 % (2.0-8.0); NEUTROPHILS # 7.3 10^3/uL (1.5-8.5); NEUTROPHILS % 65.3 % (36.0-66.0); PLATELET COUNT, AUTOMATED 205 10^3/uL (150-450); RED BLOOD COUNT 3.18 10^6/uL (4.00-5.40); WHITE BLOOD COUNT 11.2 10^3/uL (4.0-10.0)
[2022-05-28 17:02] LABS: ABG BASE EXCESS 3.2 (-2.0-2.0); ABG HCO3 32.1 MEQ/L (22.0-26.0); ABG O2 SATURATION 92.4 % (95.0-99.0); ABG PARTIAL PRESSURE O2 68.3 mmHg (75.0-100.0); ABG STANDARD HCO3 27.2 MEQ/L (22.0-26.0); ABG TOTAL CO2 34.4 MEQ/L (23.0-31.0)
[2022-05-28 17:03] LABS: ABG PARTIAL PRESSURE CO2 75.9 mmHg (35.0-45.0); ABG pH (ARTERIAL) 7.244 UNITS (7.350-7.450)
[2022-05-28] MEDS ORDERED: FUROSEMIDE 20MG/2ML VIAL IV ONE (17:45)
[2022-05-28] MEDS: cefTRIAXone SOD 1 GM in D5W MINI-BAG PLUS 50 ML IV SCH (18:07)
[2022-05-28] MEDS ORDERED: CEFD300C41 PO (18:26)
[2022-05-28] MEDS ORDERED: ZINC220CA PO (18:26)
[2022-05-28] MEDS ORDERED: VITA500054 PO (18:26)
[2022-05-28] MEDS ORDERED: PRED10TA2 PO (18:26)
[2022-05-28] MEDS ORDERED: VITA-158 PO (18:30)
[2022-05-28] MEDS ORDERED: FERR1TAB8 PO (18:30)
[2022-05-28] MEDS ORDERED: HOME MED LIST COMPLETE! XX SCH (18:35)
[2022-05-28 18:40] VITALS: BP 141/64
[2022-05-28] MEDS ORDERED: AZITHROMYCIN INJ 500 MG, VIAL MATE ADAPTER 1 EACH in NS 250 ML IV SCH (20:00)
[2022-05-28 20:01] VITALS: BP 119/56
[2022-05-28] MEDS: methylPREDNISolone 40MG 1ML VIAL IV SCH (20:18)
[2022-05-28] MEDS: IPRATROPIUM 0.5MG/ALBUTEROL 2.5MG INH SOL UD 3ML (DUONEB) NEB SCH (20:23)
[2022-05-28 22:01] VITALS: BP 120/57
[2022-05-28] MEDS: HEPARIN SOD (PORCINE) 5000UNITS/ML 1ML VIAL/SYRINGE SC SCH (22:29)
[2022-05-28] MEDS ORDERED: PATIROMER SORBITEX CALCIUM 8.4 GM POWDER PACKET (VELTASSA) PO ONE (23:00)
[2022-05-28 23:19] LABS: ABG BASE EXCESS 3.1 (-2.0-2.0); ABG HCO3 30.2 MEQ/L (22.0-26.0); ABG O2 SATURATION 96.3 % (95.0-99.0); ABG PARTIAL PRESSURE CO2 58.5 mmHg (35.0-45.0); ABG PARTIAL PRESSURE O2 82.7 mmHg (75.0-100.0); ABG STANDARD HCO3 27.2 MEQ/L (22.0-26.0); ABG TOTAL CO2 31.9 MEQ/L (23.0-31.0)
[2022-05-29] VITALS (12 sets, daily range): BP systolic 110–154; BP diastolic 56–70
[2022-05-29] MEDS: methylPREDNISolone 40MG 1ML VIAL IV SCH ×4 (03:52→20:37)
[2022-05-29] MEDS ORDERED: PATIROMER SORBITEX CALCIUM 8.4 GM POWDER PACKET (VELTASSA) PO ONE (04:00)
[2022-05-29 04:53] LABS: HEMATOCRIT 35.4 % (36.0-47.0); HEMOGLOBIN 10.8 g/dl (12.0-15.5); MEAN CORPUSCULAR HEMOGLOBIN 31.6 pg (27.0-33.0); MEAN CORPUSCULAR HGB CONC 30.5 g/dl (32.0-36.5); MEAN CORPUSCULAR VOLUME 103.5 fl (80.0-96.0); PLATELET COUNT, AUTOMATED 230 10^3/uL (150-450); RED BLOOD COUNT 3.42 10^6/uL (4.00-5.40); WHITE BLOOD COUNT 11.7 10^3/uL (4.0-10.0)
[2022-05-29 05:09] LABS: BLOOD UREA NITROGEN 20 MG/DL (9-23); CALCIUM LEVEL 9.3 MG/DL (8.3-10.6); CARBON DIOXIDE LEVEL 28 MMOL/L (20-31); CHLORIDE LEVEL 103 MMOL/L (98-107); GLOMERULAR FILTRATION RATE > 60.0 (>39); GLUCOSE, FASTING 136 MG/DL (74-106); POTASSIUM SERUM 5.9 MMOL/L (3.5-5.1); SODIUM LEVEL 142 MMOL/L (136-145)
[2022-05-29] MEDS: HEPARIN SOD (PORCINE) 5000UNITS/ML 1ML VIAL/SYRINGE SC SCH ×2 (05:33→13:54)
[2022-05-29 05:36] LABS: ABG PARTIAL PRESSURE O2 154.8 mmHg (75.0-100.0); ABG TOTAL CO2 35.1 MEQ/L (23.0-31.0); ABG pH (ARTERIAL) 7.312 UNITS (7.350-7.450)
[2022-05-29 05:39] LABS: ABG PARTIAL PRESSURE CO2 66.8 mmHg (35.0-45.0)
[2022-05-29] MEDS: IPRATROPIUM 0.5MG/ALBUTEROL 2.5MG INH SOL UD 3ML (DUONEB) NEB SCH ×4 (07:15→19:29)
[2022-05-29] MEDS: NYSTATIN 100,000 UNITS/GM TOPICAL PWD 15GM TOP SCH ×2 (09:00→20:39)
[2022-05-29] MEDS ORDERED: PANTOPRAZOLE 40MG VIAL IV SCH (09:00)
[2022-05-29] MEDS: LIDOCAINE 5% (LIDODERM) PATCH TD SCH (09:00)
[2022-05-29] MEDS: FUROSEMIDE 20 MG TAB PO SCH (09:07)
[2022-05-29] MEDS: PANTOPRAZOLE 40MG TAB (PROTONIX) PO SCH (09:07)
[2022-05-29] MEDS: VITAMIN D 1,000 INTERNATIONAL UNITS TABLET PO SCH (09:07)
[2022-05-29] MEDS: GABAPENTIN 400MG CAP PO SCH ×3 (09:07→20:37)
[2022-05-29] MEDS: LACTOBACILLUS ACIDOPHILUS CAP (BACID) PO SCH ×2 (09:07→20:37)
[2022-05-29] MEDS: FERROUS SULFATE 325MG TAB PO SCH (09:08)
[2022-05-29] MEDS: ASCORBIC ACID 500 MG TAB PO SCH (09:08)
[2022-05-29] MEDS: ADVAIR HFA 230/21MCG INHALER INH SCH ×2 (11:20→19:29)
[2022-05-29] MEDS ORDERED: SUMAtriptan SUCCINATE 25 MG TAB PO PRN (14:50)
[2022-05-29] MEDS: ZINC SULFATE 220 MG CAP PO SCH (15:19)
[2022-05-29] MEDS ORDERED: IBUPROFEN 600MG TAB PO PRN (16:45)
[2022-05-29] MEDS ORDERED: IBUPROFEN 400MG TAB PO PRN (16:45)
[2022-05-29] MEDS: cefTRIAXone SOD 1 GM in D5W MINI-BAG PLUS 50 ML IV SCH (17:40)
[2022-05-29] MEDS: RIVAROXABAN 10MG TAB (XARELTO) PO SCH (17:40)
[2022-05-29] MEDS: oxyCODONE 5MG TAB PO PRN ×2 (17:40→23:47)
[2022-05-29] MEDS: ACETAMINOPHEN 500 MG TAB PO SCH ×2 (17:41→23:46)
[2022-05-29] MEDS: ATORVASTATIN 20 MG TAB PO SCH (20:37)
[2022-05-29] MEDS: AZITHROMYCIN 250MG TABLET PO SCH (20:37)
[2022-05-29] MEDS: OLANZapine 5 MG TAB PO SCH (20:37)
[2022-05-29] MEDS: DICLOFENAC EPOLAMINE 1.3% PATCH TOP SCH (20:39)
[2022-05-30] VITALS: BP 148/67
[2022-05-30] MEDS: methylPREDNISolone 40MG 1ML VIAL IV SCH ×3 (03:00→17:09)
[2022-05-30 05:09] LABS: VENOUS BASE EXCESS 5.3 (-2.0-2.0); VENOUS HCO3 32.5 MEQ/L (23.0-27.0); VENOUS O2 SATURATION 92.1 % (60.0-80.0); VENOUS PARTIAL PRESSURE O2 66.8 mmHg (30.0-50.0); VENOUS PH 7.345 UNITS (7.330-7.430); VENOUS STANDARD HCO3 29.1 MEQ/L; VENOUS TOTAL CO2 34.4 MEQ/L (24.0-28.0)
[2022-05-30 05:26] LABS: HEMATOCRIT 34.4 % (36.0-47.0); MEAN CORPUSCULAR HEMOGLOBIN 31.8 pg (27.0-33.0); MEAN CORPUSCULAR VOLUME 99.4 fl (80.0-96.0); PLATELET COUNT, AUTOMATED 257 10^3/uL (150-450); RED BLOOD COUNT 3.46 10^6/uL (4.00-5.40)
[2022-05-30 05:41] LABS: BLOOD UREA NITROGEN 23 MG/DL (9-23); CALCIUM LEVEL 9.5 MG/DL (8.3-10.6); CARBON DIOXIDE LEVEL 34 MMOL/L (20-31); CHLORIDE LEVEL 99 MMOL/L (98-107); CREATININE FOR GFR 0.93 MG/DL (0.55-1.30); GLOMERULAR FILTRATION RATE > 60.0 (>39); GLUCOSE, FASTING 147 MG/DL (74-106); SODIUM LEVEL 138 MMOL/L (136-145)
[2022-05-30] MEDS: ACETAMINOPHEN 500 MG TAB PO SCH ×4 (06:00→17:10)
[2022-05-30 08:00] VITALS: BP 140/70
[2022-05-30] MEDS: IPRATROPIUM 0.5MG/ALBUTEROL 2.5MG INH SOL UD 3ML (DUONEB) NEB SCH ×4 (08:00→19:21)
[2022-05-30] MEDS: ADVAIR HFA 230/21MCG INHALER INH SCH ×2 (08:12→19:21)
[2022-05-30] MEDS: OLANZapine 5 MG TAB PO SCH ×2 (08:16→20:20)
[2022-05-30] MEDS: LACTOBACILLUS ACIDOPHILUS CAP (BACID) PO SCH ×2 (08:16→20:20)
[2022-05-30] MEDS: FUROSEMIDE 20 MG TAB PO SCH (08:17)
[2022-05-30] MEDS: PANTOPRAZOLE 40MG TAB (PROTONIX) PO SCH (08:17)
[2022-05-30] MEDS: GABAPENTIN 400MG CAP PO SCH ×3 (08:17→20:20)
[2022-05-30] MEDS: LIDOCAINE 5% (LIDODERM) PATCH TD SCH (08:18)
[2022-05-30] MEDS: NYSTATIN 100,000 UNITS/GM TOPICAL PWD 15GM TOP SCH ×2 (08:19→20:21)
[2022-05-30] MEDS: ZINC SULFATE 220 MG CAP PO SCH (08:32)
[2022-05-30] MEDS: VITAMIN D 1,000 INTERNATIONAL UNITS TABLET PO SCH (08:32)
[2022-05-30] MEDS: DICLOFENAC EPOLAMINE 1.3% PATCH TOP SCH ×2 (08:33→20:20)
[2022-05-30] MEDS: oxyCODONE 5MG TAB PO PRN ×2 (08:40→21:21)
[2022-05-30] MEDS: guaiFENesin 200 MG TAB PO SCH ×4 (11:17→20:20)
[2022-05-30 12:00] VITALS: BP 142/81
[2022-05-30 13:11] LABS: HEMATOCRIT 36.4 % (36.0-47.0); HEMOGLOBIN 11.7 g/dl (12.0-15.5); MEAN CORPUSCULAR HEMOGLOBIN 31.5 pg (27.0-33.0); MEAN CORPUSCULAR HGB CONC 32.1 g/dl (32.0-36.5); MEAN CORPUSCULAR VOLUME 97.8 fl (80.0-96.0); PLATELET COUNT, AUTOMATED 272 10^3/uL (150-450); RED BLOOD COUNT 3.72 10^6/uL (4.00-5.40); WHITE BLOOD COUNT 21.9 10^3/uL (4.0-10.0)
[2022-05-30 13:39] LABS: BLOOD UREA NITROGEN 25 MG/DL (9-23); CALCIUM LEVEL 9.8 MG/DL (8.3-10.6); CARBON DIOXIDE LEVEL 30 MMOL/L (20-31); CHLORIDE LEVEL 98 MMOL/L (98-107); CREATININE FOR GFR 0.83 MG/DL (0.55-1.30); GLOMERULAR FILTRATION RATE > 60.0 (>39); GLUCOSE, FASTING 169 MG/DL (74-106); POTASSIUM SERUM 4.4 MMOL/L (3.5-5.1); SODIUM LEVEL 138 MMOL/L (136-145)
[2022-05-30 16:00] VITALS: BP 131/60
[2022-05-30] MEDS: cefTRIAXone SOD 1 GM in D5W MINI-BAG PLUS 50 ML IV SCH (17:08)
[2022-05-30] MEDS: RIVAROXABAN 10MG TAB (XARELTO) PO SCH (17:11)
[2022-05-30 19:03] LABS: HEMATOCRIT 35.2 % (36.0-47.0); HEMOGLOBIN 11.1 g/dl (12.0-15.5); MEAN CORPUSCULAR HGB CONC 31.5 g/dl (32.0-36.5); MEAN CORPUSCULAR VOLUME 98.3 fl (80.0-96.0); PLATELET COUNT, AUTOMATED 266 10^3/uL (150-450); RED BLOOD COUNT 3.58 10^6/uL (4.00-5.40); WHITE BLOOD COUNT 21.9 10^3/uL (4.0-10.0)
[2022-05-30] MEDS: ATORVASTATIN 20 MG TAB PO SCH (20:20)
[2022-05-30] MEDS: AZITHROMYCIN 250MG TABLET PO SCH (20:20)
[2022-05-30 20:21] VITALS: BP 139/63
[2022-05-31 00:11] VITALS: BP 144/67
[2022-05-31] MEDS: methylPREDNISolone 40MG 1ML VIAL IV SCH ×2 (00:13→08:33)
[2022-05-31 00:59] LABS: HEMATOCRIT 35.1 % (36.0-47.0); HEMOGLOBIN 11.2 g/dl (12.0-15.5); MEAN CORPUSCULAR HEMOGLOBIN 31.3 pg (27.0-33.0); MEAN CORPUSCULAR HGB CONC 31.9 g/dl (32.0-36.5); PLATELET COUNT, AUTOMATED 254 10^3/uL (150-450); RED BLOOD COUNT 3.58 10^6/uL (4.00-5.40); WHITE BLOOD COUNT 21.7 10^3/uL (4.0-10.0)
[2022-05-31 04:51] VITALS: BP 169/77
[2022-05-31] MEDS: ACETAMINOPHEN 500 MG TAB PO SCH ×2 (05:11)
[2022-05-31 06:30] LABS: HEMATOCRIT 36.6 % (36.0-47.0); HEMOGLOBIN 11.8 g/dl (12.0-15.5); MEAN CORPUSCULAR HEMOGLOBIN 31.6 pg (27.0-33.0); MEAN CORPUSCULAR HGB CONC 32.2 g/dl (32.0-36.5); MEAN CORPUSCULAR VOLUME 97.9 fl (80.0-96.0); PLATELET COUNT, AUTOMATED 258 10^3/uL (150-450); RED BLOOD COUNT 3.74 10^6/uL (4.00-5.40); WHITE BLOOD COUNT 23.3 10^3/uL (4.0-10.0)
[2022-05-31 06:58] LABS: MAGNESIUM LEVEL 1.9 MG/DL (1.8-2.4)
[2022-05-31 07:03] LABS: ALBUMIN 3.6 G/DL (3.2-5.2); ALKALINE PHOSPHATASE 81 U/L (46-116); ALT/SGPT 11 U/L (7.0-40); AST/SGOT 12 U/L (<34); BILIRUBIN,TOTAL 0.2 MG/DL (0.3-1.2); BLOOD UREA NITROGEN 26 MG/DL (9-23); CALCIUM LEVEL 9.8 MG/DL (8.3-10.6); CARBON DIOXIDE LEVEL 29 MMOL/L (20-31); CHLORIDE LEVEL 96 MMOL/L (98-107); CREATININE FOR GFR 0.78 MG/DL (0.55-1.30); GLOMERULAR FILTRATION RATE > 60.0 (>39); GLUCOSE, FASTING 157 MG/DL (74-106); POTASSIUM SERUM 4.4 MMOL/L (3.5-5.1); SODIUM LEVEL 137 MMOL/L (136-145)
[2022-05-31] MEDS: ADVAIR HFA 230/21MCG INHALER INH SCH (07:16)
[2022-05-31] MEDS: IPRATROPIUM 0.5MG/ALBUTEROL 2.5MG INH SOL UD 3ML (DUONEB) NEB SCH ×2 (07:17→11:16)
[2022-05-31 08:00] VITALS: BP 177/75
[2022-05-31] MEDS: guaiFENesin 200 MG TAB PO SCH (08:34)
[2022-05-31] MEDS: VITAMIN D 1,000 INTERNATIONAL UNITS TABLET PO SCH (08:34)
[2022-05-31] MEDS: FUROSEMIDE 20 MG TAB PO SCH (08:34)
[2022-05-31] MEDS: PANTOPRAZOLE 40MG TAB (PROTONIX) PO SCH (08:34)
[2022-05-31] MEDS: ASCORBIC ACID 500 MG TAB PO SCH (08:34)
[2022-05-31 08:35] VITALS: BP 177/75
[2022-05-31] MEDS: FERROUS SULFATE 325MG TAB PO SCH (08:35)
[2022-05-31] MEDS: GABAPENTIN 400MG CAP PO SCH (08:35)
[2022-05-31] MEDS: LACTOBACILLUS ACIDOPHILUS CAP (BACID) PO SCH (08:35)
[2022-05-31] MEDS: LIDOCAINE 5% (LIDODERM) PATCH TD SCH (08:35)
[2022-05-31] MEDS: ZINC SULFATE 220 MG CAP PO SCH (08:35)
[2022-05-31] MEDS: OLANZapine 5 MG TAB PO SCH (08:35)
[2022-05-31] MEDS: DICLOFENAC EPOLAMINE 1.3% PATCH TOP SCH (08:35)
[2022-05-31] MEDS: NYSTATIN 100,000 UNITS/GM TOPICAL PWD 15GM TOP SCH (08:36)
[2022-05-31] MEDS: oxyCODONE 5MG TAB PO PRN (09:00)
[2022-05-31] MEDS ORDERED: PRED50TA PO (09:39)
[2022-05-31 11:00] VITALS: BP 153/62
[2022-05-31] MEDS ORDERED: GUAI200T6 PO (11:26)
== END 2022-05-31 13:15 | disposition home or self-care (01) | DRG 193 ==
LOC: M ED 14:19 → EDBD 14:19 → M ED INP 17:01 → ENRESERV 17:44 → M ICU 18:25
PROVIDERS: ADMIT Internal Medicine; ATTEND Internal Medicine
DX: J12.1 Respiratory syncytial virus pneumonia (principal); J96.21 Acute and chronic respiratory failure with hypoxia; J96.22 Acute and chronic respiratory failure with hypercapnia; J44.1 Chronic obstructive pulmonary disease with (acute) exacerbation; J44.0 Chronic obstructive pulmonary disease with (acute) lower respiratory infection; E66.2 Morbid (severe) obesity with alveolar hypoventilation; I50.32 Chronic diastolic (congestive) heart failure; Z68.42 Body mass index [BMI] 45.0-49.9, adult; G93.40 Encephalopathy, unspecified; I11.0 Hypertensive heart disease with heart failure; F39 Unspecified mood [affective] disorder; M54.9 Dorsalgia, unspecified; F17.210 Nicotine dependence, cigarettes, uncomplicated; G89.29 Other chronic pain; K21.9 Gastro-esophageal reflux disease without esophagitis; D50.9 Iron deficiency anemia, unspecified; E55.9 Vitamin D deficiency, unspecified; G43.909 Migraine, unspecified, not intractable, without status migrainosus; E78.5 Hyperlipidemia, unspecified; E87.5 Hyperkalemia; Z87.891 Personal history of nicotine dependence; Z85.118 Personal history of other malignant neoplasm of bronchus and lung; Z90.2 Acquired absence of lung [part of]; Z99.81 Dependence on supplemental oxygen; Z90.49 Acquired absence of other specified parts of digestive tract; Z97.8 Presence of other specified devices; Z88.5 Allergy status to narcotic agent; Z88.8 Allergy status to other drugs, medicaments and biological substances

== ENCOUNTER 2022-06-10 18:16 | Inpatient (IN) | payer MEDICARE, BC, OTHER ==
[~2022-06-10] VITALS: Ht 154.9 cm; Wt 111.5 kg
[~2022-06-10 18:16] MED LIST changes: +GUAI200T6 PO; +VITA-158 PO; +VITA500054 PO; +ZINC220CA PO
[2022-06-10] MEDS ORDERED: methylPREDNISolone 125MG 2ML VIAL IV ONE (18:45)
[2022-06-10] MEDS: COMBIVENT RESPIMAT 100-20MCG INHALER 4GM INH SCH ×3 (18:58→19:25)
[2022-06-10 20:31] LABS: BASO % 0.1 % (0.0-1.0); EOS # 0.4 10^3/uL (0.0-0.5); EOS % 2.9 % (0.0-3.0); HEMATOCRIT 33.6 % (36.0-47.0); HEMOGLOBIN 9.9 g/dl (12.0-15.5); LYMPH % 14.3 % (24.0-44.0); MEAN CORPUSCULAR HGB CONC 29.5 g/dl (32.0-36.5); MEAN CORPUSCULAR VOLUME 105.3 fl (80.0-96.0); MONO % 6.9 % (2.0-8.0); NEUTROPHILS # 10.3 10^3/uL (1.5-8.5); NEUTROPHILS % 74.2 % (36.0-66.0); PLATELET COUNT, AUTOMATED 203 10^3/uL (150-450); RED BLOOD COUNT 3.19 10^6/uL (4.00-5.40); WHITE BLOOD COUNT 13.8 10^3/uL (4.0-10.0)
[2022-06-10 20:56] LABS: BILIRUBIN,DIRECT < 0.1 MG/DL (<0.4)
[2022-06-10 20:57] LABS: ALBUMIN 3.2 G/DL (3.2-5.2); ALKALINE PHOSPHATASE 87 U/L (46-116); ALT/SGPT 35 U/L (7.0-40); AST/SGOT 25 U/L (<34); BILIRUBIN,TOTAL < 0.2 MG/DL (0.3-1.2); BLOOD UREA NITROGEN 15 MG/DL (9-23); CALCIUM LEVEL 8.1 MG/DL (8.3-10.6); CARBON DIOXIDE LEVEL 36 MMOL/L (20-31); CHLORIDE LEVEL 101 MMOL/L (98-107); CREATININE FOR GFR 0.75 MG/DL (0.55-1.30); GLOMERULAR FILTRATION RATE > 60.0 (>39); GLUCOSE, FASTING 74 MG/DL (74-106); POTASSIUM SERUM 4.5 MMOL/L (3.5-5.1); SODIUM LEVEL 140 MMOL/L (136-145); TOTAL PROTEIN 5.9 G/DL (5.7-8.2)
[2022-06-10 20:59] LABS: THYROID STIMULATING HORMONE 1.445 uIU/ML (0.55-4.78)
[2022-06-10] MEDS: ATORVASTATIN 20 MG TAB PO SCH (21:00)
[2022-06-10] MEDS: CEFDINIR 300 MG CAP (OMNICEF) PO SCH (21:00)
[2022-06-10 21:55] LABS: ABG BASE EXCESS 4.7 (-2.0-2.0); ABG HCO3 33.7 MEQ/L (22.0-26.0); ABG O2 SATURATION 96.8 % (95.0-99.0); ABG PARTIAL PRESSURE O2 97.5 mmHg (75.0-100.0); ABG STANDARD HCO3 28.7 MEQ/L (22.0-26.0); ABG TOTAL CO2 36.1 MEQ/L (23.0-31.0); ABG pH (ARTERIAL) 7.258 UNITS (7.350-7.450)
[2022-06-10 21:57] LABS: ABG PARTIAL PRESSURE CO2 77.2 mmHg (35.0-45.0)
[2022-06-10] MEDS: HEPARIN SOD (PORCINE) 5000UNITS/ML 1ML VIAL/SYRINGE SC SCH (22:00)
[2022-06-10] MEDS ORDERED: PRED10TA2 PO (22:44)
[2022-06-10] MEDS ORDERED: THERTAB21 PO (22:44)
[2022-06-10] MEDS ORDERED: CEFD300C41 PO (22:44)
[2022-06-10] MEDS ORDERED: HOME MED LIST COMPLETE! XX SCH (22:45)
[2022-06-11] VITALS (12 sets, daily range): BP systolic 102–148; BP diastolic 49–77
[2022-06-11] MEDS ORDERED: AZITHROMYCIN INJ 500 MG, VIAL MATE ADAPTER 1 EACH in NS 250 ML IV SCH ×3
[2022-06-11] MEDS: IPRATROPIUM 0.5MG/ALBUTEROL 2.5MG INH SOL UD 3ML (DUONEB) NEB SCH ×4 (01:02→19:24)
[2022-06-11] MEDS: HEPARIN SOD (PORCINE) 5000UNITS/ML 1ML VIAL/SYRINGE SC SCH ×3 (05:01→21:04)
[2022-06-11 05:36] LABS: HEMATOCRIT 33.9 % (36.0-47.0); HEMOGLOBIN 10.2 g/dl (12.0-15.5); MEAN CORPUSCULAR HGB CONC 30.1 g/dl (32.0-36.5); PLATELET COUNT, AUTOMATED 201 10^3/uL (150-450); RED BLOOD COUNT 3.29 10^6/uL (4.00-5.40); WHITE BLOOD COUNT 15.1 10^3/uL (4.0-10.0)
[2022-06-11 05:51] LABS: MAGNESIUM LEVEL 1.9 MG/DL (1.8-2.4)
[2022-06-11 05:53] LABS: ALBUMIN 3.1 G/DL (3.2-5.2); ALKALINE PHOSPHATASE 90 U/L (46-116); ALT/SGPT 33 U/L (7.0-40); AST/SGOT 18 U/L (<34); BILIRUBIN,TOTAL 0.2 MG/DL (0.3-1.2); BLOOD UREA NITROGEN 14 MG/DL (9-23); CALCIUM LEVEL 8.6 MG/DL (8.3-10.6); CARBON DIOXIDE LEVEL 36 MMOL/L (20-31); CHLORIDE LEVEL 99 MMOL/L (98-107); CREATININE FOR GFR 0.62 MG/DL (0.55-1.30); GLOMERULAR FILTRATION RATE > 60.0 (>39); GLUCOSE, FASTING 182 MG/DL (74-106); POTASSIUM SERUM 4.6 MMOL/L (3.5-5.1); SODIUM LEVEL 139 MMOL/L (136-145); TOTAL PROTEIN 6.1 G/DL (5.7-8.2)
[2022-06-11 05:56] LABS: ABG BASE EXCESS 6.5 (-2.0-2.0); ABG HCO3 35.6 MEQ/L (22.0-26.0); ABG O2 SATURATION 97.9 % (95.0-99.0); ABG PARTIAL PRESSURE O2 109.6 mmHg (75.0-100.0); ABG STANDARD HCO3 30.4 MEQ/L (22.0-26.0); ABG TOTAL CO2 38.1 MEQ/L (23.0-31.0); ABG pH (ARTERIAL) 7.269 UNITS (7.350-7.450)
[2022-06-11 05:58] LABS: ABG PARTIAL PRESSURE CO2 79.6 mmHg (35.0-45.0)
[2022-06-11] MEDS ORDERED: methylPREDNISolone 125MG 2ML VIAL IV SCH (08:00)
[2022-06-11] MEDS: SYMBICORT 160/4.5MCG INHALER 6GM INH SCH ×2 (08:30→19:24)
[2022-06-11] MEDS: CEFDINIR 300 MG CAP (OMNICEF) PO SCH ×2 (08:37→20:05)
[2022-06-11] MEDS: DOCUSATE SODIUM 100MG CAPSULE PO SCH ×2 (08:38→20:05)
[2022-06-11] MEDS ORDERED: PANTOPRAZOLE 40MG VIAL IV SCH (09:00)
[2022-06-11 14:14] LABS: ABG HCO3 28.2 MEQ/L (22.0-26.0); ABG O2 SATURATION 92.3 % (95.0-99.0); ABG PARTIAL PRESSURE O2 56.7 mmHg (75.0-100.0); ABG TOTAL CO2 29.6 MEQ/L (23.0-31.0); ABG pH (ARTERIAL) 7.405 UNITS (7.350-7.450)
[2022-06-11] MEDS ORDERED: VANCOMYCIN HCL 1,000 MG, VIAL MATE ADAPTER 1 EACH in NS 250 ML IV SCH (14:15)
[2022-06-11] MEDS ORDERED: OLANZapine 5 MG TAB PO ONE (15:00)
[2022-06-11] MEDS ORDERED: VANCOMYCIN HCL 1,000 MG, VIAL MATE ADAPTER 1 EACH in NS 250 ML IV ONE ×2 (15:00→16:00)
[2022-06-11] MEDS: NYSTATIN 100,000 UNITS/GM TOPICAL PWD 15GM TOP PRN (15:16)
[2022-06-11] MEDS: GABAPENTIN 400MG CAP PO SCH ×2 (15:16→20:05)
[2022-06-11] MEDS: ZINC SULFATE 220 MG CAP PO SCH (15:16)
[2022-06-11] MEDS: MULTIVITAMINS/MINERALS THERAP 1 TAB PO SCH (15:16)
[2022-06-11] MEDS: VITAMIN D 1,000 INTERNATIONAL UNITS TABLET PO SCH (15:16)
[2022-06-11] MEDS: FUROSEMIDE 20 MG TAB PO SCH (15:17)
[2022-06-11] MEDS: PERCOCET 5MG/325MG TAB PO PRN (18:30)
[2022-06-11] MEDS: ATORVASTATIN 20 MG TAB PO SCH (20:05)
[2022-06-11] MEDS: methylPREDNISolone 125MG 2ML VIAL IV SCH (20:05)
[2022-06-11] MEDS: OLANZapine 5 MG TAB PO SCH (20:05)
[2022-06-11] MEDS: LACTOBACILLUS ACIDOPHILUS CAP (BACID) PO SCH (20:05)
[2022-06-12] VITALS (8 sets, daily range): BP systolic 107–157; BP diastolic 49–71
[2022-06-12] MEDS: PERCOCET 5MG/325MG TAB PO PRN ×3 (00:33→22:07)
[2022-06-12] MEDS: VANCOMYCIN HCL 750 MG, VIAL MATE ADAPTER 1 EACH in D5W 250 ML IV SCH ×2 (02:07→14:04)
[2022-06-12] MEDS: IPRATROPIUM 0.5MG/ALBUTEROL 2.5MG INH SOL UD 3ML (DUONEB) NEB SCH ×4 (02:22→19:20)
[2022-06-12] MEDS: VANCOMYCIN HCL 500 MG in D5W MINI-BAG PLUS 100 ML IV SCH ×2 (03:12→16:04)
[2022-06-12 04:31] LABS: ABG BASE EXCESS 6.6 (-2.0-2.0); ABG O2 SATURATION 97.1 % (95.0-99.0); ABG PARTIAL PRESSURE O2 97.6 mmHg (75.0-100.0); ABG STANDARD HCO3 30.4 MEQ/L (22.0-26.0); ABG pH (ARTERIAL) 7.337 UNITS (7.350-7.450)
[2022-06-12 04:33] LABS: ABG PARTIAL PRESSURE CO2 64.9 mmHg (35.0-45.0)
[2022-06-12] MEDS: HEPARIN SOD (PORCINE) 5000UNITS/ML 1ML VIAL/SYRINGE SC SCH ×3 (05:02→22:08)
[2022-06-12 05:49] LABS: HEMATOCRIT 31.2 % (36.0-47.0); HEMOGLOBIN 9.7 g/dl (12.0-15.5); MEAN CORPUSCULAR HGB CONC 31.1 g/dl (32.0-36.5); MEAN CORPUSCULAR VOLUME 99.7 fl (80.0-96.0); PLATELET COUNT, AUTOMATED 210 10^3/uL (150-450); RED BLOOD COUNT 3.13 10^6/uL (4.00-5.40); WHITE BLOOD COUNT 16.8 10^3/uL (4.0-10.0)
[2022-06-12 06:11] LABS: BLOOD UREA NITROGEN 15 MG/DL (9-23); CALCIUM LEVEL 8.5 MG/DL (8.3-10.6); CARBON DIOXIDE LEVEL 34 MMOL/L (20-31); CHLORIDE LEVEL 103 MMOL/L (98-107); CREATININE FOR GFR 0.61 MG/DL (0.55-1.30); GLOMERULAR FILTRATION RATE > 60.0 (>39); GLUCOSE, FASTING 217 MG/DL (74-106); POTASSIUM SERUM 4.3 MMOL/L (3.5-5.1); SODIUM LEVEL 144 MMOL/L (136-145)
[2022-06-12] MEDS ORDERED: PERCOCET 5MG/325MG TAB PO PRN ×2 (07:45→09:35)
[2022-06-12] MEDS: SYMBICORT 160/4.5MCG INHALER 6GM INH SCH ×2 (08:13→19:20)
[2022-06-12] MEDS: AZITHROMYCIN 250MG TABLET PO SCH (09:51)
[2022-06-12] MEDS: LACTOBACILLUS ACIDOPHILUS CAP (BACID) PO SCH ×2 (09:52→22:06)
[2022-06-12] MEDS: VITAMIN D 1,000 INTERNATIONAL UNITS TABLET PO SCH (09:52)
[2022-06-12] MEDS: OLANZapine 5 MG TAB PO SCH ×2 (09:52→22:07)
[2022-06-12] MEDS: CEFDINIR 300 MG CAP (OMNICEF) PO SCH ×2 (09:52→22:06)
[2022-06-12] MEDS: MULTIVITAMINS/MINERALS THERAP 1 TAB PO SCH (09:53)
[2022-06-12] MEDS: methylPREDNISolone 125MG 2ML VIAL IV SCH ×2 (09:53→22:08)
[2022-06-12] MEDS: ZINC SULFATE 220 MG CAP PO SCH (09:53)
[2022-06-12] MEDS: GABAPENTIN 400MG CAP PO SCH ×3 (09:53→22:07)
[2022-06-12] MEDS: FUROSEMIDE 20 MG TAB PO SCH (09:53)
[2022-06-12] MEDS: DOCUSATE SODIUM 100MG CAPSULE PO SCH ×2 (09:53→22:06)
[2022-06-12] MEDS: ATORVASTATIN 20 MG TAB PO SCH (22:05)
[2022-06-13 00:33] VITALS: BP 136/74
[2022-06-13] MEDS: IPRATROPIUM 0.5MG/ALBUTEROL 2.5MG INH SOL UD 3ML (DUONEB) NEB SCH ×4 (01:43→19:40)
[2022-06-13] MEDS: NYSTATIN 100,000 UNITS/GM TOPICAL PWD 15GM TOP PRN (01:50)
[2022-06-13] MEDS: VANCOMYCIN HCL 750 MG, VIAL MATE ADAPTER 1 EACH in D5W 250 ML IV SCH (02:49)
[2022-06-13] MEDS: VANCOMYCIN HCL 500 MG in D5W MINI-BAG PLUS 100 ML IV SCH (03:54)
[2022-06-13 03:57] VITALS: BP 152/76
[2022-06-13 04:56] LABS: MEAN CORPUSCULAR HEMOGLOBIN 31.3 pg (27.0-33.0); MEAN CORPUSCULAR HGB CONC 31.3 g/dl (32.0-36.5); PLATELET COUNT, AUTOMATED 202 10^3/uL (150-450); WHITE BLOOD COUNT 18.3 10^3/uL (4.0-10.0)
[2022-06-13 05:23] LABS: BLOOD UREA NITROGEN 18 MG/DL (9-23); CALCIUM LEVEL 8.7 MG/DL (8.3-10.6); CARBON DIOXIDE LEVEL 33 MMOL/L (20-31); CHLORIDE LEVEL 105 MMOL/L (98-107); CREATININE FOR GFR 0.67 MG/DL (0.55-1.30); GLOMERULAR FILTRATION RATE > 60.0 (>39); GLUCOSE, FASTING 239 MG/DL (74-106); POTASSIUM SERUM 4.1 MMOL/L (3.5-5.1); SODIUM LEVEL 144 MMOL/L (136-145)
[2022-06-13] MEDS: HEPARIN SOD (PORCINE) 5000UNITS/ML 1ML VIAL/SYRINGE SC SCH ×3 (05:33→21:48)
[2022-06-13 08:00] VITALS: BP 118/87
[2022-06-13] MEDS: DOCUSATE SODIUM 100MG CAPSULE PO SCH ×2 (09:04→20:31)
[2022-06-13] MEDS: MULTIVITAMINS/MINERALS THERAP 1 TAB PO SCH (09:04)
[2022-06-13] MEDS: OLANZapine 5 MG TAB PO SCH ×2 (09:04→20:31)
[2022-06-13] MEDS: VITAMIN D 1,000 INTERNATIONAL UNITS TABLET PO SCH (09:04)
[2022-06-13] MEDS: GABAPENTIN 400MG CAP PO SCH ×3 (09:04→20:31)
[2022-06-13] MEDS: CEFDINIR 300 MG CAP (OMNICEF) PO SCH ×2 (09:04→20:31)
[2022-06-13] MEDS: LACTOBACILLUS ACIDOPHILUS CAP (BACID) PO SCH ×2 (09:04→20:30)
[2022-06-13] MEDS: predniSONE 20 MG TAB PO SCH (09:04)
[2022-06-13] MEDS: ZINC SULFATE 220 MG CAP PO SCH (09:04)
[2022-06-13] MEDS: AZITHROMYCIN 250MG TABLET PO SCH (09:04)
[2022-06-13] MEDS: FUROSEMIDE 20 MG TAB PO SCH (09:05)
[2022-06-13] MEDS: SYMBICORT 160/4.5MCG INHALER 6GM INH SCH ×2 (11:29→19:40)
[2022-06-13 12:00] VITALS: BP 142/65
[2022-06-13 16:00] VITALS: BP 154/70
[2022-06-13] MEDS: MOM 30ML SUSPENSION UDC PO PRN (16:03)
[2022-06-13 20:25] VITALS: BP 132/61
[2022-06-13] MEDS: ATORVASTATIN 20 MG TAB PO SCH (20:30)
[2022-06-14 00:02] VITALS: BP 144/82
[2022-06-14] MEDS: IPRATROPIUM 0.5MG/ALBUTEROL 2.5MG INH SOL UD 3ML (DUONEB) NEB SCH ×4 (01:59→20:00)
[2022-06-14 04:28] VITALS: BP 153/89
[2022-06-14 04:48] LABS: BASO % 0.2 % (0.0-1.0); EOS % 0.1 % (0.0-3.0); HEMOGLOBIN 10.7 g/dl (12.0-15.5); LYMPH # 2.2 10^3/uL (1.5-5.0); LYMPH % 12.8 % (24.0-44.0); MEAN CORPUSCULAR HEMOGLOBIN 31.2 pg (27.0-33.0); MEAN CORPUSCULAR HGB CONC 31.5 g/dl (32.0-36.5); MEAN CORPUSCULAR VOLUME 99.1 fl (80.0-96.0); MONO # 1.2 10^3/uL (0.0-0.8); NEUTROPHILS # 13.2 10^3/uL (1.5-8.5); PLATELET COUNT, AUTOMATED 211 10^3/uL (150-450); RED BLOOD COUNT 3.43 10^6/uL (4.00-5.40)
[2022-06-14 05:18] LABS: BLOOD UREA NITROGEN 17 MG/DL (9-23); CALCIUM LEVEL 9.3 MG/DL (8.3-10.6); CARBON DIOXIDE LEVEL 33 MMOL/L (20-31); CHLORIDE LEVEL 104 MMOL/L (98-107); CREATININE FOR GFR 0.64 MG/DL (0.55-1.30); GLOMERULAR FILTRATION RATE > 60.0 (>39); GLUCOSE, FASTING 135 MG/DL (74-106); POTASSIUM SERUM 3.7 MMOL/L (3.5-5.1); SODIUM LEVEL 145 MMOL/L (136-145)
[2022-06-14] MEDS: HEPARIN SOD (PORCINE) 5000UNITS/ML 1ML VIAL/SYRINGE SC SCH ×3 (05:47→21:56)
[2022-06-14] MEDS: SYMBICORT 160/4.5MCG INHALER 6GM INH SCH ×2 (07:54→20:19)
[2022-06-14 08:00] VITALS: BP 165/81
[2022-06-14] MEDS: predniSONE 20 MG TAB PO SCH (09:45)
[2022-06-14] MEDS: CEFDINIR 300 MG CAP (OMNICEF) PO SCH ×2 (09:45→20:00)
[2022-06-14] MEDS: LACTOBACILLUS ACIDOPHILUS CAP (BACID) PO SCH ×2 (09:45→20:00)
[2022-06-14] MEDS: ZINC SULFATE 220 MG CAP PO SCH (09:46)
[2022-06-14] MEDS: OLANZapine 5 MG TAB PO SCH ×2 (09:46→20:00)
[2022-06-14] MEDS: MULTIVITAMINS/MINERALS THERAP 1 TAB PO SCH (09:46)
[2022-06-14] MEDS: VITAMIN D 1,000 INTERNATIONAL UNITS TABLET PO SCH (09:46)
[2022-06-14] MEDS: GABAPENTIN 400MG CAP PO SCH ×3 (09:46→20:00)
[2022-06-14] MEDS: FUROSEMIDE 20 MG TAB PO SCH (09:46)
[2022-06-14] MEDS: DOCUSATE SODIUM 100MG CAPSULE PO SCH ×2 (09:46→20:00)
[2022-06-14] MEDS: AZITHROMYCIN 250MG TABLET PO SCH (10:02)
[2022-06-14 16:00] VITALS: BP 137/64
[2022-06-14 19:51] VITALS: BP 135/70
[2022-06-14] MEDS: ATORVASTATIN 20 MG TAB PO SCH (20:00)
[2022-06-15] MEDS: IPRATROPIUM 0.5MG/ALBUTEROL 2.5MG INH SOL UD 3ML (DUONEB) NEB SCH ×2 (03:10→07:52)
[2022-06-15 04:49] LABS: BASO % 0.2 % (0.0-1.0); EOS # 0.1 10^3/uL (0.0-0.5); EOS % 0.6 % (0.0-3.0); HEMOGLOBIN 11.7 g/dl (12.0-15.5); LYMPH # 1.9 10^3/uL (1.5-5.0); LYMPH % 11.7 % (24.0-44.0); MEAN CORPUSCULAR HEMOGLOBIN 30.5 pg (27.0-33.0); MEAN CORPUSCULAR HGB CONC 30.8 g/dl (32.0-36.5); MONO % 6.2 % (2.0-8.0); NEUTROPHILS # 12.6 10^3/uL (1.5-8.5); NEUTROPHILS % 78.5 % (36.0-66.0); PLATELET COUNT, AUTOMATED 213 10^3/uL (150-450); RED BLOOD COUNT 3.84 10^6/uL (4.00-5.40)
[2022-06-15 05:07] VITALS: BP 152/84
[2022-06-15 05:08] LABS: ALBUMIN 3.3 G/DL (3.2-5.2); ALKALINE PHOSPHATASE 83 U/L (46-116); ALT/SGPT 37 U/L (7.0-40); AST/SGOT 17 U/L (<34); BILIRUBIN,TOTAL 0.3 MG/DL (0.3-1.2); BLOOD UREA NITROGEN 14 MG/DL (9-23); CALCIUM LEVEL 9.1 MG/DL (8.3-10.6); CARBON DIOXIDE LEVEL 29 MMOL/L (20-31); CHLORIDE LEVEL 103 MMOL/L (98-107); CREATININE FOR GFR 0.66 MG/DL (0.55-1.30); GLOMERULAR FILTRATION RATE > 60.0 (>39); GLUCOSE, FASTING 123 MG/DL (74-106); POTASSIUM SERUM 3.9 MMOL/L (3.5-5.1); SODIUM LEVEL 141 MMOL/L (136-145); TOTAL PROTEIN 6.7 G/DL (5.7-8.2)
[2022-06-15] MEDS: MOM 30ML SUSPENSION UDC PO PRN (05:10)
[2022-06-15] MEDS: HEPARIN SOD (PORCINE) 5000UNITS/ML 1ML VIAL/SYRINGE SC SCH (05:15)
[2022-06-15] MEDS: SYMBICORT 160/4.5MCG INHALER 6GM INH SCH (07:52)
[2022-06-15 08:00] VITALS: BP 154/88
[2022-06-15] MEDS: CEFDINIR 300 MG CAP (OMNICEF) PO SCH (08:19)
[2022-06-15] MEDS: DOCUSATE SODIUM 100MG CAPSULE PO SCH (08:20)
[2022-06-15 08:21] VITALS: BP 154/88
[2022-06-15] MEDS: predniSONE 20 MG TAB PO SCH (08:21)
[2022-06-15] MEDS: VITAMIN D 1,000 INTERNATIONAL UNITS TABLET PO SCH (08:21)
[2022-06-15] MEDS: ZINC SULFATE 220 MG CAP PO SCH (08:21)
[2022-06-15] MEDS: AZITHROMYCIN 250MG TABLET PO SCH (08:21)
[2022-06-15] MEDS: GABAPENTIN 400MG CAP PO SCH (08:21)
[2022-06-15] MEDS: MULTIVITAMINS/MINERALS THERAP 1 TAB PO SCH (08:21)
[2022-06-15] MEDS: OLANZapine 5 MG TAB PO SCH (08:21)
[2022-06-15] MEDS: LACTOBACILLUS ACIDOPHILUS CAP (BACID) PO SCH (08:22)
[2022-06-15] MEDS: FUROSEMIDE 20 MG TAB PO SCH (08:22)
[2022-06-15] MEDS ORDERED: PRED10TA2 PO (11:18)
[2022-06-15] MEDS ORDERED: SYMB16INH INH (11:18)
[2022-06-15] MEDS ORDERED: VITMTA PO (11:18)
[2022-06-15] MEDS ORDERED: PRED20TA PO (11:18)
[2022-06-15] MEDS ORDERED: IPRA0.00 NEB (11:18)
[2022-06-15] MEDS ORDERED: COLA100C5 PO (11:18)
[2022-06-15] MEDS ORDERED: AZIT-12 PO (11:18)
[2022-06-15] MEDS ORDERED: PERC10TA26 PO (14:36)
== END 2022-06-15 13:01 | disposition home or self-care (01) | DRG 189 ==
LOC: EDBD 18:16 → M ED 20:29 → M ED INP 23:26 → ENRESERV 06-11 02:11 → M ICU 06-11 02:15
PROVIDERS: ADMIT Internal Medicine; ATTEND Internal Medicine Nephrology
PROC: B246ZZZ Ultrasonography of Right and Left Heart (ICD-10-PCS; principal; 2022-06-11)
DX: J96.21 Acute and chronic respiratory failure with hypoxia (principal); G93.41 Metabolic encephalopathy; J44.1 Chronic obstructive pulmonary disease with (acute) exacerbation; I50.32 Chronic diastolic (congestive) heart failure; Z68.42 Body mass index [BMI] 45.0-49.9, adult; I13.0 Hypertensive heart and chronic kidney disease with heart failure and stage 1 through stage 4 chronic kidney disease, or unspecified chronic kidney disease; E66.2 Morbid (severe) obesity with alveolar hypoventilation; D84.9 Immunodeficiency, unspecified; M46.25 Osteomyelitis of vertebra, thoracolumbar region; E87.29 Other acidosis; Z99.81 Dependence on supplemental oxygen; J96.22 Acute and chronic respiratory failure with hypercapnia; N18.30 Chronic kidney disease, stage 3 unspecified; I27.29 Other secondary pulmonary hypertension; E78.5 Hyperlipidemia, unspecified; G25.81 Restless legs syndrome; K21.9 Gastro-esophageal reflux disease without esophagitis; Z90.2 Acquired absence of lung [part of]; Z20.822 Contact with and (suspected) exposure to COVID-19; Z88.5 Allergy status to narcotic agent; Z88.8 Allergy status to other drugs, medicaments and biological substances; Z79.52 Long term (current) use of systemic steroids; Z79.2 Long term (current) use of antibiotics; Z79.899 Other long term (current) drug therapy; Z85.118 Personal history of other malignant neoplasm of bronchus and lung; F41.9 Anxiety disorder, unspecified; F32.A Depression, unspecified; B95.5 Unspecified streptococcus as the cause of diseases classified elsewhere

== ENCOUNTER → 2022-09-22 | Outpatient (CLI) | payer MEDICARE, BC, OTHER ==
[~2022-09-22] MED LIST changes: +AZIT-12 PO; +COLA100C5 PO; +IPRA0.00 NEB; +SYMB16INH INH; +THERTAB21 PO
[2022-09-22 15:59] LABS: BASO % 0.1 % (0.0-1.0); EOS % 0.2 % (0.0-3.0); HEMOGLOBIN 11.8 g/dl (12.0-15.5); LYMPH # 1.3 10^3/uL (1.5-5.0); LYMPH % 8.2 % (24.0-44.0); MEAN CORPUSCULAR HEMOGLOBIN 31.1 pg (27.0-33.0); MEAN CORPUSCULAR HGB CONC 31.1 g/dl (32.0-36.5); MEAN CORPUSCULAR VOLUME 100.3 fl (80.0-96.0); MONO # 0.5 10^3/uL (0.0-0.8); MONO % 3.1 % (2.0-8.0); NEUTROPHILS # 13.7 10^3/uL (1.5-8.5); NEUTROPHILS % 87.6 % (36.0-66.0); PLATELET COUNT, AUTOMATED 227 10^3/uL (150-450); RED BLOOD COUNT 3.79 10^6/uL (4.00-5.40); WHITE BLOOD COUNT 15.6 10^3/uL (4.0-10.0)
[2022-09-22 16:11] LABS: ERYTHROCYTE SEDIMENTATION RATE 33 mm/hr (0-30)
[2022-09-22 16:22] LABS: ALBUMIN 3.9 G/DL (3.2-5.2); ALKALINE PHOSPHATASE 93 U/L (46-116); ALT/SGPT 23 U/L (7.0-40); AST/SGOT < 8 U/L (<34); BILIRUBIN,TOTAL 0.2 MG/DL (0.3-1.2); BLOOD UREA NITROGEN 20 MG/DL (9-23); CALCIUM LEVEL 9.2 MG/DL (8.3-10.6); CARBON DIOXIDE LEVEL 33 MMOL/L (20-31); CHLORIDE LEVEL 103 MMOL/L (98-107); CREATININE FOR GFR 0.92 MG/DL (0.55-1.30); GLOMERULAR FILTRATION RATE > 60.0 (>39); GLUCOSE, FASTING 98 MG/DL (74-106); SODIUM LEVEL 142 MMOL/L (136-145); TOTAL PROTEIN 6.9 G/DL (5.7-8.2)
== END ==
LOC: M PLALAB 12:41
PROVIDERS: ATTEND Internal Medicine Infectious Disease
DX: A49.1 Streptococcal infection, unspecified site (principal)

== ENCOUNTER → 2022-12-07 | Outpatient (CLI) | payer MEDICARE, BC, OTHER ==
[~2022-12-07] MED LIST changes: -ROPI0.253 PO; +ROPI5TAB19 PO
== END ==
LOC: M RAD 13:35
PROVIDERS: ATTEND Internal Medicine Critical Care Medicine
DX: Z12.2 Encounter for screening for malignant neoplasm of respiratory organs (principal); Z87.891 Personal history of nicotine dependence

== ENCOUNTER 2022-12-24 09:29 | Emergency (ER) | payer MEDICARE, BC, OTHER ==
[~2022-12-24] VITALS: Ht 157.5 cm; Wt 121.6 kg
[2022-12-24 11:36] LABS: BASO # 0.1 10^3/uL (0.0-0.2); BASO % 0.2 % (0.0-1.0); HEMATOCRIT 40.4 % (36.0-47.0); HEMOGLOBIN 12.7 g/dl (12.0-15.5); LYMPH # 1.1 10^3/uL (1.5-5.0); LYMPH % 5.2 % (24.0-44.0); MEAN CORPUSCULAR HEMOGLOBIN 30.1 pg (27.0-33.0); MEAN CORPUSCULAR HGB CONC 31.4 g/dl (32.0-36.5); MEAN CORPUSCULAR VOLUME 95.7 fl (80.0-96.0); MONO # 0.8 10^3/uL (0.0-0.8); MONO % 3.9 % (2.0-8.0); NEUTROPHILS # 18.3 10^3/uL (1.5-8.5); NEUTROPHILS % 90.1 % (36.0-66.0); PLATELET COUNT, AUTOMATED 249 10^3/uL (150-450); RED BLOOD COUNT 4.22 10^6/uL (4.00-5.40); WHITE BLOOD COUNT 20.3 10^3/uL (4.0-10.0)
[2022-12-24 12:07] LABS: BLOOD UREA NITROGEN 10 MG/DL (9-23); CALCIUM LEVEL 9.4 MG/DL (8.3-10.6); CARBON DIOXIDE LEVEL 28 MMOL/L (20-31); CHLORIDE LEVEL 102 MMOL/L (98-107); CREATININE FOR GFR 0.96 MG/DL (0.55-1.30); GLOMERULAR FILTRATION RATE > 60.0 (>39); GLUCOSE, FASTING 132 MG/DL (74-106); POTASSIUM SERUM 3.8 MMOL/L (3.5-5.1); SODIUM LEVEL 143 MMOL/L (136-145)
[2022-12-24] MEDS ORDERED: OXYB-54 PO (14:16)
[2022-12-24] MEDS ORDERED: PHEN1TAB73 PO (14:16)
[2022-12-24] MEDS ORDERED: ONDA4TAB6 PO (14:19)
[2022-12-24] MEDS ORDERED: ONDANSETRON 4MG ORAL DISINTEGRATING TAB PO ONE (14:25)
[2022-12-24 14:35] VITALS: BP 137/62; TEMP 97.8; O2SAT 92
== END 2022-12-24 14:51 | disposition home or self-care (01) ==
LOC: M ED 09:29
DX: R30.0 Dysuria (principal); R35.0 Frequency of micturition; J44.9 Chronic obstructive pulmonary disease, unspecified; N18.30 Chronic kidney disease, stage 3 unspecified; Z88.5 Allergy status to narcotic agent; Z87.891 Personal history of nicotine dependence; Z79.899 Other long term (current) drug therapy

== ENCOUNTER → 2023-03-27 | Outpatient (CLI) | payer MEDICARE, BC, OTHER ==
[~2023-03-27] MED LIST changes: -CEFD300C41 PO; +CEFD300C42 PO; +CELE0.09 PO; -CELE1CAP9 PO; -GABA-283 PO; +GABA-284 PO; +ONDA4TAB6 PO; +OXYB-54 PO; +PHEN1TAB73 PO
[2023-03-27 18:01] LABS: BASO % 0.2 % (0.0-1.0); EOS # 0.1 10^3/uL (0.0-0.5); EOS % 0.6 % (0.0-3.0); HEMATOCRIT 38.3 % (36.0-47.0); HEMOGLOBIN 11.7 g/dl (12.0-15.5); LYMPH # 1.4 10^3/uL (1.5-5.0); MEAN CORPUSCULAR HEMOGLOBIN 30.2 pg (27.0-33.0); MEAN CORPUSCULAR HGB CONC 30.5 g/dl (32.0-36.5); MEAN CORPUSCULAR VOLUME 98.7 fl (80.0-96.0); MONO % 6.3 % (2.0-8.0); NEUTROPHILS # 12.8 10^3/uL (1.5-8.5); NEUTROPHILS % 82.7 % (36.0-66.0); PLATELET COUNT, AUTOMATED 235 10^3/uL (150-450); RED BLOOD COUNT 3.88 10^6/uL (4.00-5.40); WHITE BLOOD COUNT 15.4 10^3/uL (4.0-10.0)
[2023-03-27 18:17] LABS: ALBUMIN 3.6 G/DL (3.2-5.2); ALKALINE PHOSPHATASE 95 U/L (46-116); ALT/SGPT 29 U/L (7.0-40); AST/SGOT 13 U/L (<34); BILIRUBIN,TOTAL 0.2 MG/DL (0.3-1.2); BLOOD UREA NITROGEN 24 MG/DL (9-23); CALCIUM LEVEL 9.4 MG/DL (8.3-10.6); CARBON DIOXIDE LEVEL 34 MMOL/L (20-31); CHLORIDE LEVEL 101 MMOL/L (98-107); CREATININE FOR GFR 0.79 MG/DL (0.55-1.30); GLOMERULAR FILTRATION RATE > 60.0 (>39); GLUCOSE, FASTING 107 MG/DL (74-106); POTASSIUM SERUM 3.9 MMOL/L (3.5-5.1); SODIUM LEVEL 142 MMOL/L (136-145); TOTAL PROTEIN 6.8 G/DL (5.7-8.2)
[2023-03-27 18:32] LABS: ERYTHROCYTE SEDIMENTATION RATE 41 mm/hr (0-30)
== END ==
LOC: M PLALAB 14:23
PROVIDERS: ATTEND Internal Medicine Infectious Disease
DX: A49.1 Streptococcal infection, unspecified site (principal)

== ENCOUNTER 2023-04-17 10:53 | Inpatient (IN) | payer MEDICARE, BC, OTHER ==
[2023-04-17] VITALS (7 sets, daily range): BP systolic 124–143; BP diastolic 66–87; TEMP 97.1–97.3; O2SAT 89–98
[~2023-04-17] VITALS: Ht 154.9 cm; Wt 122.9 kg
[2023-04-17 11:41] LABS: VENOUS BASE EXCESS 3.6 (-2.0-2.0); VENOUS HCO3 30.4 MMOL/L (23.0-27.0); VENOUS O2 SATURATION 98.9 % (60.0-80.0); VENOUS PARTIAL PRESSURE CO2 55.5 mmHg (38.0-50.0); VENOUS PARTIAL PRESSURE O2 155.3 mmHg (30.0-50.0); VENOUS PH 7.356 UNITS (7.330-7.430); VENOUS STANDARD HCO3 27.7 MMOL/L; VENOUS TOTAL CO2 32.1 MMOL/L (24.0-28.0)
[2023-04-17 11:45] LABS: BASO # 0.1 10^3/uL (0.0-0.2); BASO % 0.4 % (0.0-1.0); EOS # 0.3 10^3/uL (0.0-0.5); EOS % 2.2 % (0.0-3.0); HEMOGLOBIN 11.8 g/dl (12.0-15.5); LYMPH # 1.2 10^3/uL (1.5-5.0); LYMPH % 10.4 % (24.0-44.0); MEAN CORPUSCULAR HEMOGLOBIN 30.9 pg (27.0-33.0); MEAN CORPUSCULAR HGB CONC 31.1 g/dl (32.0-36.5); MEAN CORPUSCULAR VOLUME 99.5 fl (80.0-96.0); MONO # 0.8 10^3/uL (0.0-0.8); NEUTROPHILS # 9.3 10^3/uL (1.5-8.5); NEUTROPHILS % 78.4 % (36.0-66.0); PLATELET COUNT, AUTOMATED 204 10^3/uL (150-450); RED BLOOD COUNT 3.82 10^6/uL (4.00-5.40); WHITE BLOOD COUNT 11.9 10^3/uL (4.0-10.0)
[2023-04-17] MEDS ORDERED: PRED5PAK PO (12:04)
[2023-04-17 12:19] LABS: INR 0.98; PROTHROMBIN TIME 12.7 SECONDS (12.5-14.5)
[2023-04-17 13:19] LABS: CK-MB VALUE MASS < 1.0 NG/ML (<3.6)
[2023-04-17 13:22] LABS: ALBUMIN 3.3 G/DL (3.2-5.2); ALKALINE PHOSPHATASE 96 U/L (46-116); ALT/SGPT 27 U/L (7.0-40); AST/SGOT 20 U/L (<34); BILIRUBIN,DIRECT < 0.1 MG/DL (<0.4); BILIRUBIN,TOTAL 0.2 MG/DL (0.3-1.2); BLOOD UREA NITROGEN 16 MG/DL (9-23); CALCIUM LEVEL 8.6 MG/DL (8.3-10.6); CARBON DIOXIDE LEVEL 37 MMOL/L (20-31); CHLORIDE LEVEL 100 MMOL/L (98-107); CREATININE FOR GFR 0.87 MG/DL (0.55-1.30); GLOMERULAR FILTRATION RATE > 60.0 (>39); GLUCOSE, FASTING 117 MG/DL (74-106); SODIUM LEVEL 143 MMOL/L (136-145); TOTAL PROTEIN 6.4 G/DL (5.7-8.2)
[2023-04-17 13:23] LABS: THYROXINE (T4) 7.7 UG/DL (4.5-10.9)
[2023-04-17 13:24] LABS: THYROID STIMULATING HORMONE 1.725 uIU/ML (0.55-4.78)
[2023-04-17 13:25] LABS: CPK CREATINE PHOSPHOKINASE 52 U/L (34-145); MB/CK RELATIVE INDEX 1.92 (< OR =4)
[2023-04-17] MEDS ORDERED: methylPREDNISolone 125MG 2ML VIAL IV ONE (13:55)
[2023-04-17] MEDS ORDERED: IPRATROPIUM 0.5MG/ALBUTEROL 2.5MG INH SOL UD 3ML (DUONEB) NEB ONE (13:55)
[2023-04-17] MEDS ORDERED: ALBUTEROL SULFATE 2.5MG/0.5ML INH NEB SOLN INH ONE (13:55)
[2023-04-17 14:20] LABS: ABG BASE EXCESS 3.8 (-2.0-2.0); ABG HCO3 32.6 MMOL/L (22.0-26.0); ABG O2 SATURATION 96.1 % (95.0-99.0); ABG PARTIAL PRESSURE O2 90.1 mmHg (75.0-100.0); ABG STANDARD HCO3 27.9 MMOL/L. (22.0-26.0); ABG TOTAL CO2 34.9 MMOL/L (23.0-31.0); ABG pH (ARTERIAL) 7.275 UNITS (7.350-7.450)
[2023-04-17 14:21] LABS: ABG PARTIAL PRESSURE CO2 71.9 mmHg (35.0-45.0)
[2023-04-17 14:43] LABS: CK-MB VALUE MASS < 1.0 NG/ML (<3.6); CPK CREATINE PHOSPHOKINASE 96 U/L (34-145); MB/CK RELATIVE INDEX 1.04 (< OR =4)
[2023-04-17] MEDS ORDERED: MED REC IN PROGRESS XX SCH (14:55)
[2023-04-17 15:17] LABS: PROCALCITONIN 0.04 ng/ml
[2023-04-17] MEDS ORDERED: LevoFLOXacin IV 750 MG in IV 1 EA IV ONE (16:00)
[2023-04-17 17:15] LABS: ABG BASE EXCESS 8.4 (-2.0-2.0); ABG HCO3 37.3 MMOL/L (22.0-26.0); ABG O2 SATURATION 95.2 % (95.0-99.0); ABG PARTIAL PRESSURE O2 81.5 mmHg (75.0-100.0); ABG STANDARD HCO3 32.2 MMOL/L. (22.0-26.0); ABG TOTAL CO2 39.7 MMOL/L (23.0-31.0); ABG pH (ARTERIAL) 7.307 UNITS (7.350-7.450)
[2023-04-17 17:18] LABS: ABG PARTIAL PRESSURE CO2 76.4 mmHg (35.0-45.0)
[2023-04-17] MEDS ORDERED: PRED5TA PO (17:18)
[2023-04-17] MEDS ORDERED: OXYB15TA14 PO (17:18)
[2023-04-17] MEDS ORDERED: IPRA0.00 INH (17:18)
[2023-04-17] MEDS ORDERED: FURO40TA2 PO (17:18)
[2023-04-17] MEDS ORDERED: XALA0.007 OU (17:18)
[2023-04-17] MEDS ORDERED: OXYC10TA3 PO (17:18)
[2023-04-17] MEDS ORDERED: DOCU100C16 PO (17:18)
[2023-04-17] MEDS ORDERED: ONDA8TAB8 SL (17:18)
[2023-04-17] MEDS ORDERED: HOME MED LIST COMPLETE! XX SCH (17:20)
[2023-04-17] MEDS: IPRATROPIUM 0.5MG/ALBUTEROL 2.5MG INH SOL UD 3ML (DUONEB) NEB SCH ×2 (20:23→23:26)
[2023-04-17 20:40] LABS: ABG BASE EXCESS 8.1 (-2.0-2.0); ABG HCO3 36.7 MMOL/L (22.0-26.0); ABG O2 SATURATION 98.2 % (95.0-99.0); ABG PARTIAL PRESSURE O2 117.2 mmHg (75.0-100.0); ABG STANDARD HCO3 31.9 MMOL/L. (22.0-26.0); ABG TOTAL CO2 38.9 MMOL/L (23.0-31.0); ABG pH (ARTERIAL) 7.318 UNITS (7.350-7.450)
[2023-04-17 20:41] LABS: ABG PARTIAL PRESSURE CO2 73.2 mmHg (35.0-45.0)
[2023-04-17] MEDS: methylPREDNISolone 125MG 2ML VIAL IV SCH (21:16)
[2023-04-18] VITALS (12 sets, daily range): BP systolic 121–158; BP diastolic 63–96; TEMP 97.1–98.1; O2SAT 85–99
[2023-04-18] MEDS: IPRATROPIUM 0.5MG/ALBUTEROL 2.5MG INH SOL UD 3ML (DUONEB) NEB SCH ×4 (03:06→15:41)
[2023-04-18 04:19] LABS: HEMATOCRIT 36.5 % (36.0-47.0); HEMOGLOBIN 11.6 g/dl (12.0-15.5); MEAN CORPUSCULAR HEMOGLOBIN 31.1 pg (27.0-33.0); MEAN CORPUSCULAR HGB CONC 31.8 g/dl (32.0-36.5); MEAN CORPUSCULAR VOLUME 97.9 fl (80.0-96.0); PLATELET COUNT, AUTOMATED 198 10^3/uL (150-450); RED BLOOD COUNT 3.73 10^6/uL (4.00-5.40); WHITE BLOOD COUNT 12.9 10^3/uL (4.0-10.0)
[2023-04-18 04:42] LABS: ALBUMIN 3.1 G/DL (3.2-5.2); ALKALINE PHOSPHATASE 93 U/L (46-116); ALT/SGPT 25 U/L (7.0-40); AST/SGOT 12 U/L (<34); BILIRUBIN,TOTAL 0.2 MG/DL (0.3-1.2); BLOOD UREA NITROGEN 17 MG/DL (9-23); CALCIUM LEVEL 8.7 MG/DL (8.3-10.6); CARBON DIOXIDE LEVEL 36 MMOL/L (20-31); CHLORIDE LEVEL 100 MMOL/L (98-107); CREATININE FOR GFR 0.73 MG/DL (0.55-1.30); GLOMERULAR FILTRATION RATE > 60.0 (>39); GLUCOSE, FASTING 149 MG/DL (74-106); POTASSIUM SERUM 3.8 MMOL/L (3.5-5.1); SODIUM LEVEL 143 MMOL/L (136-145); TOTAL PROTEIN 6.4 G/DL (5.7-8.2)
[2023-04-18] MEDS: methylPREDNISolone 125MG 2ML VIAL IV SCH ×2 (05:27→17:01)
[2023-04-18 05:56] LABS: ABG BASE EXCESS 8.9 (-2.0-2.0); ABG HCO3 35.8 MMOL/L (22.0-26.0); ABG O2 SATURATION 96.7 % (95.0-99.0); ABG PARTIAL PRESSURE CO2 60.1 mmHg (35.0-45.0); ABG PARTIAL PRESSURE O2 87.3 mmHg (75.0-100.0); ABG STANDARD HCO3 32.7 MMOL/L. (22.0-26.0); ABG TOTAL CO2 37.7 MMOL/L (23.0-31.0); ABG pH (ARTERIAL) 7.393 UNITS (7.350-7.450)
[2023-04-18] MEDS: FUROSEMIDE 40 MG TAB PO SCH (08:42)
[2023-04-18] MEDS: ENOXAPARIN 40MG/0.4ML SYRINGE (J1650 PER 10MG) SC SCH ×2 (08:42→20:32)
[2023-04-18] MEDS: PANTOPRAZOLE 20 MG TAB PO SCH (08:50)
[2023-04-18] MEDS ORDERED: oxyBUTYnin *DITROPAN XL* 5 MG TABCR PO SCH (09:00)
[2023-04-18] MEDS ORDERED: DOCUSATE SODIUM 100MG CAPSULE PO SCH (09:00)
[2023-04-18] MEDS: CEFDINIR 300 MG CAP (OMNICEF) PO SCH ×2 (13:46→20:32)
[2023-04-18] MEDS: IPRATROPIUM 0.02% SOLN 0.5MG 2.5ML NEB INH SCH (19:51)
[2023-04-18] MEDS: LEVALBUTEROL 1.25MG 0.5ML CONCENTRATE NEB INH SCH (19:51)
[2023-04-18] MEDS: ATORVASTATIN 20 MG TAB PO SCH (20:32)
[2023-04-18] MEDS ORDERED: OLANZapine 5 MG TAB PO ONE (21:00)
[2023-04-18 22:19] LABS: CLOSTRIDIUM DIFFICILE PCR POSITIVE (NEGATIVE)
[2023-04-19] VITALS (9 sets, daily range): BP systolic 135–159; BP diastolic 64–76; TEMP 97.4–98.1; O2SAT 89–97
[2023-04-19] MEDS: LEVALBUTEROL 1.25MG 0.5ML CONCENTRATE NEB INH SCH ×4 (02:04→19:32)
[2023-04-19] MEDS: IPRATROPIUM 0.02% SOLN 0.5MG 2.5ML NEB INH SCH ×4 (02:04→19:32)
[2023-04-19] MEDS: methylPREDNISolone 125MG 2ML VIAL IV SCH (05:11)
[2023-04-19 06:01] LABS: ABG BASE EXCESS 5.6 (-2.0-2.0); ABG O2 SATURATION 96.9 % (95.0-99.0); ABG PARTIAL PRESSURE CO2 43.1 mmHg (35.0-45.0); ABG PARTIAL PRESSURE O2 86.9 mmHg (75.0-100.0); ABG STANDARD HCO3 29.5 MMOL/L. (22.0-26.0); ABG TOTAL CO2 31.4 MMOL/L (23.0-31.0); ABG pH (ARTERIAL) 7.461 UNITS (7.350-7.450)
[2023-04-19 06:11] LABS: HEMATOCRIT 37.6 % (36.0-47.0); HEMOGLOBIN 12.2 g/dl (12.0-15.5); MEAN CORPUSCULAR HEMOGLOBIN 31.4 pg (27.0-33.0); MEAN CORPUSCULAR HGB CONC 32.4 g/dl (32.0-36.5); MEAN CORPUSCULAR VOLUME 96.7 fl (80.0-96.0); PLATELET COUNT, AUTOMATED 235 10^3/uL (150-450); RED BLOOD COUNT 3.89 10^6/uL (4.00-5.40); WHITE BLOOD COUNT 24.1 10^3/uL (4.0-10.0)
[2023-04-19 06:40] LABS: ALBUMIN 3.3 G/DL (3.2-5.2); ALKALINE PHOSPHATASE 87 U/L (46-116); ALT/SGPT 23 U/L (7.0-40); AST/SGOT 14 U/L (<34); BILIRUBIN,TOTAL 0.2 MG/DL (0.3-1.2); BLOOD UREA NITROGEN 16 MG/DL (9-23); CALCIUM LEVEL 9.1 MG/DL (8.3-10.6); CARBON DIOXIDE LEVEL 32 MMOL/L (20-31); CHLORIDE LEVEL 102 MMOL/L (98-107); CREATININE FOR GFR 0.74 MG/DL (0.55-1.30); GLOMERULAR FILTRATION RATE > 60.0 (>39); GLUCOSE, FASTING 167 MG/DL (74-106); POTASSIUM SERUM 3.7 MMOL/L (3.5-5.1); SODIUM LEVEL 144 MMOL/L (136-145); TOTAL PROTEIN 6.6 G/DL (5.7-8.2)
[2023-04-19] MEDS: FUROSEMIDE 40 MG TAB PO SCH (08:52)
[2023-04-19] MEDS: FIDAXOMICIN 200 MG TAB (DIFICID) PO SCH ×2 (08:53→21:12)
[2023-04-19] MEDS: CEFDINIR 300 MG CAP (OMNICEF) PO SCH ×2 (08:53→21:12)
[2023-04-19] MEDS: ENOXAPARIN 40MG/0.4ML SYRINGE (J1650 PER 10MG) SC SCH ×2 (08:54→21:13)
[2023-04-19] MEDS ORDERED: FIDAXOMICIN 200 MG TAB (DIFICID) PO SCH (09:00)
[2023-04-19] MEDS: PANTOPRAZOLE 20 MG TAB PO SCH (09:50)
[2023-04-19] MEDS ORDERED: SUMAtriptan SUCCINATE 25 MG TAB PO PRN (12:00)
[2023-04-19] MEDS ORDERED: ONDANSETRON 4MG ORAL DISINTEGRATING TAB SL PRN (12:00)
[2023-04-19 12:23] LABS: BASO % 0.1 % (0.0-1.0); HEMATOCRIT 37.3 % (36.0-47.0); HEMOGLOBIN 11.8 g/dl (12.0-15.5); LYMPH # 0.6 10^3/uL (1.5-5.0); LYMPH % 2.4 % (24.0-44.0); MEAN CORPUSCULAR HEMOGLOBIN 30.3 pg (27.0-33.0); MEAN CORPUSCULAR HGB CONC 31.6 g/dl (32.0-36.5); MEAN CORPUSCULAR VOLUME 95.9 fl (80.0-96.0); MONO % 4.1 % (2.0-8.0); NEUTROPHILS # 21.7 10^3/uL (1.5-8.5); NEUTROPHILS % 92.6 % (36.0-66.0); PLATELET COUNT, AUTOMATED 251 10^3/uL (150-450); RED BLOOD COUNT 3.89 10^6/uL (4.00-5.40); WHITE BLOOD COUNT 23.5 10^3/uL (4.0-10.0)
[2023-04-19] MEDS: OLANZapine 5 MG TAB PO SCH ×2 (14:00→21:13)
[2023-04-19] MEDS ORDERED: NORCO, ANEXSIA 5/325MG TABLET (HYDROcodone/ACETAMINOPHEN) PO PRN (16:10)
[2023-04-19] MEDS: GABAPENTIN 400MG CAP PO SCH ×2 (16:29→21:12)
[2023-04-19] MEDS: methylPREDNISolone 40MG 1ML VIAL IV SCH (17:57)
[2023-04-19] MEDS: ATORVASTATIN 20 MG TAB PO SCH (21:12)
[2023-04-20] MEDS: IPRATROPIUM 0.02% SOLN 0.5MG 2.5ML NEB INH SCH ×2 (01:07→07:45)
[2023-04-20] MEDS: LEVALBUTEROL 1.25MG 0.5ML CONCENTRATE NEB INH SCH ×2 (01:07→07:45)
[2023-04-20 03:40] VITALS: BP 136/67; TEMP 97.9; O2SAT 97
[2023-04-20 06:08] LABS: HEMATOCRIT 36.1 % (36.0-47.0); HEMOGLOBIN 11.2 g/dl (12.0-15.5); MEAN CORPUSCULAR HEMOGLOBIN 30.4 pg (27.0-33.0); MEAN CORPUSCULAR VOLUME 97.8 fl (80.0-96.0); PLATELET COUNT, AUTOMATED 243 10^3/uL (150-450); RED BLOOD COUNT 3.69 10^6/uL (4.00-5.40); WHITE BLOOD COUNT 17.6 10^3/uL (4.0-10.0)
[2023-04-20 06:33] LABS: ALBUMIN 3.2 G/DL (3.2-5.2); ALKALINE PHOSPHATASE 79 U/L (46-116); ALT/SGPT 21 U/L (7.0-40); AST/SGOT 10 U/L (<34); BILIRUBIN,TOTAL 0.2 MG/DL (0.3-1.2); BLOOD UREA NITROGEN 19 MG/DL (9-23); CALCIUM LEVEL 8.9 MG/DL (8.3-10.6); CARBON DIOXIDE LEVEL 34 MMOL/L (20-31); CHLORIDE LEVEL 105 MMOL/L (98-107); CREATININE FOR GFR 0.65 MG/DL (0.55-1.30); GLOMERULAR FILTRATION RATE > 60.0 (>39); GLUCOSE, FASTING 167 MG/DL (74-106); POTASSIUM SERUM 3.6 MMOL/L (3.5-5.1); SODIUM LEVEL 146 MMOL/L (136-145); TOTAL PROTEIN 6.4 G/DL (5.7-8.2)
[2023-04-20] MEDS: methylPREDNISolone 40MG 1ML VIAL IV SCH (06:35)
[2023-04-20 08:00] VITALS: BP 138/62; TEMP 97.6; O2SAT 95
[2023-04-20] MEDS ORDERED: VANC125C3 PO (08:24)
[2023-04-20] MEDS ORDERED: PRED10TA2 PO (08:24)
[2023-04-20 09:16] VITALS: BP 136/67
[2023-04-20] MEDS: CEFDINIR 300 MG CAP (OMNICEF) PO SCH (09:16)
[2023-04-20] MEDS: OLANZapine 5 MG TAB PO SCH (09:16)
[2023-04-20] MEDS: FIDAXOMICIN 200 MG TAB (DIFICID) PO SCH (09:16)
[2023-04-20] MEDS: FUROSEMIDE 40 MG TAB PO SCH (09:16)
[2023-04-20] MEDS: ENOXAPARIN 40MG/0.4ML SYRINGE (J1650 PER 10MG) SC SCH (09:16)
[2023-04-20] MEDS: PANTOPRAZOLE 20 MG TAB PO SCH (09:16)
[2023-04-20] MEDS: GABAPENTIN 400MG CAP PO SCH (09:16)
== END 2023-04-20 11:03 | disposition home or self-care (01) | DRG 189 ==
LOC: M ED 10:53 → EDBD 10:53 → M ED INP 16:04 → ENRESERV 16:24 → M ICU 17:38 → M PCU 04-19 15:52
PROVIDERS: ADMIT Internal Medicine Pulmonary Disease; ATTEND Internal Medicine
DX: J96.22 Acute and chronic respiratory failure with hypercapnia (principal); G93.41 Metabolic encephalopathy; A04.72 Enterocolitis due to Clostridium difficile, not specified as recurrent; I50.32 Chronic diastolic (congestive) heart failure; I13.0 Hypertensive heart and chronic kidney disease with heart failure and stage 1 through stage 4 chronic kidney disease, or unspecified chronic kidney disease; E66.2 Morbid (severe) obesity with alveolar hypoventilation; M46.26 Osteomyelitis of vertebra, lumbar region; F11.20 Opioid dependence, uncomplicated; Z68.43 Body mass index [BMI] 50.0-59.9, adult; J44.1 Chronic obstructive pulmonary disease with (acute) exacerbation; E87.29 Other acidosis; J96.21 Acute and chronic respiratory failure with hypoxia; I27.29 Other secondary pulmonary hypertension; K21.9 Gastro-esophageal reflux disease without esophagitis; G43.909 Migraine, unspecified, not intractable, without status migrainosus; R32 Unspecified urinary incontinence; F32.A Depression, unspecified; R33.9 Retention of urine, unspecified; N18.30 Chronic kidney disease, stage 3 unspecified; F41.9 Anxiety disorder, unspecified; Z79.52 Long term (current) use of systemic steroids; Z79.899 Other long term (current) drug therapy; Z88.5 Allergy status to narcotic agent; Z88.8 Allergy status to other drugs, medicaments and biological substances; Z90.2 Acquired absence of lung [part of]; Z99.81 Dependence on supplemental oxygen; Z85.118 Personal history of other malignant neoplasm of bronchus and lung; Z87.891 Personal history of nicotine dependence

== ENCOUNTER 2023-05-03 15:03 | Inpatient (IN) | payer MEDICARE, BC, OTHER ==
[~2023-05-03] VITALS: Ht 152.4 cm; Wt 130.0 kg
[~2023-05-03 15:03] MED LIST changes: +CEFD1CAP9 PO; -CEFD300C42 PO; +DOCU100C16 PO; +IPRA0.00 INH; +ONDA8TAB8 SL; +OXYB15TA14 PO; +PRED5PAK PO; +VANC125C3 PO
[2023-05-03] MEDS ORDERED: ALBUTEROL SULFATE 2.5MG/0.5ML INH NEB SOLN NEB ONE (17:10)
[2023-05-03 18:15] LABS: VENOUS BASE EXCESS 6.4 (-2.0-2.0); VENOUS HCO3 35.7 MMOL/L (23.0-27.0); VENOUS O2 SATURATION 73.7 % (60.0-80.0); VENOUS PARTIAL PRESSURE CO2 78.2 mmHg (38.0-50.0); VENOUS PARTIAL PRESSURE O2 41.6 mmHg (30.0-50.0); VENOUS PH 7.277 UNITS (7.330-7.430); VENOUS STANDARD HCO3 29.8 MMOL/L; VENOUS TOTAL CO2 38.1 MMOL/L (24.0-28.0)
[2023-05-03 18:20] LABS: BASO % 0.2 % (0.0-1.0); EOS # 0.4 10^3/uL (0.0-0.5); EOS % 2.7 % (0.0-3.0); HEMATOCRIT 36.7 % (36.0-47.0); HEMOGLOBIN 11.1 g/dl (12.0-15.5); LYMPH # 1.1 10^3/uL (1.5-5.0); LYMPH % 8.3 % (24.0-44.0); MEAN CORPUSCULAR HEMOGLOBIN 30.9 pg (27.0-33.0); MEAN CORPUSCULAR HGB CONC 30.2 g/dl (32.0-36.5); MEAN CORPUSCULAR VOLUME 102.2 fl (80.0-96.0); MONO # 1.1 10^3/uL (0.0-0.8); MONO % 8.4 % (2.0-8.0); NEUTROPHILS # 10.2 10^3/uL (1.5-8.5); NEUTROPHILS % 77.8 % (36.0-66.0); PLATELET COUNT, AUTOMATED 176 10^3/uL (150-450); RED BLOOD COUNT 3.59 10^6/uL (4.00-5.40); WHITE BLOOD COUNT 13.1 10^3/uL (4.0-10.0)
[2023-05-03 18:45] LABS: ALBUMIN 3.3 G/DL (3.2-5.2); ALKALINE PHOSPHATASE 89 U/L (46-116); ALT/SGPT 41 U/L (7.0-40); AST/SGOT 21 U/L (<34); BILIRUBIN,DIRECT 0.1 MG/DL (<0.4); BILIRUBIN,TOTAL 0.3 MG/DL (0.3-1.2); BLOOD UREA NITROGEN 15 MG/DL (9-23); CALCIUM LEVEL 9.7 MG/DL (8.3-10.6); CARBON DIOXIDE LEVEL 37 MMOL/L (20-31); CHLORIDE LEVEL 100 MMOL/L (98-107); CK-MB VALUE MASS < 1.0 NG/ML (<3.6); CREATININE FOR GFR 0.87 MG/DL (0.55-1.30); GLOMERULAR FILTRATION RATE > 60.0 (>39); GLUCOSE, FASTING 88 MG/DL (74-106); POTASSIUM SERUM 3.7 MMOL/L (3.5-5.1); SODIUM LEVEL 139 MMOL/L (136-145); TOTAL PROTEIN 6.3 G/DL (5.7-8.2)
[2023-05-03] MEDS ORDERED: OLANZapine 5 MG TAB PO ONE (18:45)
[2023-05-03 18:49] LABS: THYROID STIMULATING HORMONE 1.966 uIU/ML (0.55-4.78)
[2023-05-03 18:57] LABS: CPK CREATINE PHOSPHOKINASE 78 U/L (34-145); MB/CK RELATIVE INDEX 1.28 (< OR =4)
[2023-05-03 19:51] LABS: CK-MB VALUE MASS < 1.0 NG/ML (<3.6)
[2023-05-03 19:53] LABS: CPK CREATINE PHOSPHOKINASE 75 U/L (34-145); MB/CK RELATIVE INDEX 1.33 (< OR =4)
[2023-05-03 20:08] LABS: ABG BASE EXCESS 3.6 (-2.0-2.0); ABG HCO3 30.5 MMOL/L (22.0-26.0); ABG O2 SATURATION 97.8 % (95.0-99.0); ABG PARTIAL PRESSURE O2 110.3 mmHg (75.0-100.0); ABG STANDARD HCO3 27.7 MMOL/L. (22.0-26.0); ABG TOTAL CO2 32.2 MMOL/L (23.0-31.0); ABG pH (ARTERIAL) 7.346 UNITS (7.350-7.450)
[2023-05-03] MEDS ORDERED: ISOVUE-370 76% 100ML VIAL As Ordered ONE ×2 (20:53→23:38)
[2023-05-03] MEDS: SODIUM CHLORIDE 0.9% 1000ML IV SCH ×2 (23:20→23:51)
[2023-05-03] MEDS ORDERED: ACETAMINOPHEN TAB 650MG DOSE (2X325MG) PO PRN (23:55)
[2023-05-03] MEDS ORDERED: ARTIDRO4 OU (23:58)
[2023-05-03] MEDS ORDERED: ATOR1TAB21 PO (23:58)
[2023-05-03] MEDS ORDERED: ALBU2.5V10 INH (23:58)
[2023-05-03] MEDS ORDERED: FLUT1BLS8 INH (23:58)
[2023-05-04] VITALS (15 sets, daily range): BP systolic 129–138; BP diastolic 65–85; TEMP 97.1–98; O2SAT 86–98
[2023-05-04] MEDS ORDERED: HOME MED LIST COMPLETE! XX SCH
[2023-05-04] MEDS ORDERED: SUMAtriptan SUCCINATE 25 MG TAB PO PRN (00:05)
[2023-05-04] MEDS: LATANOPROST 0.005% OPHTH SOLN 2.5 ML OU SCH ×2 (00:05→21:20)
[2023-05-04] MEDS ORDERED: ARTIFICIAL TEARS DROPS 15ML BTL (VISINE DRY RELIEF) OU PRN (00:05)
[2023-05-04] MEDS: LACTOBACILLUS ACIDOPHILUS CAP (BACID) PO SCH ×3 (00:05→21:05)
[2023-05-04] MEDS ORDERED: CEFDINIR 300 MG CAP (OMNICEF) PO SCH (00:05)
[2023-05-04] MEDS: DOCUSATE SODIUM 100MG CAPSULE PO SCH ×3 (00:42→21:00)
[2023-05-04] MEDS ORDERED: ALBUTEROL SULFATE 2.5MG/0.5ML INH NEB SOLN NEB PRN (01:25)
[2023-05-04] MEDS: SYMBICORT 160/4.5MCG INHALER 6GM INH SCH ×3 (01:43→20:54)
[2023-05-04] MEDS: IPRATROPIUM 0.5MG/ALBUTEROL 2.5MG INH SOL UD 3ML (DUONEB) NEB SCH ×4 (01:56→20:54)
[2023-05-04] MEDS ORDERED: PIPERACILLIN/TAZOBACTAM SOD 3.375 GM in D5W MINI-BAG PLUS 50 ML IV STA (02:27)
[2023-05-04] MEDS ORDERED: LINEZOLID 600MG TABLET (ZYVOX) PO SCH (03:00)
[2023-05-04] MEDS: HEPARIN SOD (PORCINE) 5000UNITS/ML 1ML VIAL/SYRINGE SQ SCH ×3 (06:09→21:05)
[2023-05-04 07:15] LABS: BLOOD UREA NITROGEN 11 MG/DL (9-23); CALCIUM LEVEL 9.1 MG/DL (8.3-10.6); CARBON DIOXIDE LEVEL 36 MMOL/L (20-31); CHLORIDE LEVEL 101 MMOL/L (98-107); CREATININE FOR GFR 0.81 MG/DL (0.55-1.30); GLOMERULAR FILTRATION RATE > 60.0 (>39); GLUCOSE, FASTING 99 MG/DL (74-106); POTASSIUM SERUM 3.9 MMOL/L (3.5-5.1); SODIUM LEVEL 142 MMOL/L (136-145)
[2023-05-04] MEDS: PANTOPRAZOLE 40MG TAB (PROTONIX) PO SCH (08:27)
[2023-05-04] MEDS: FUROSEMIDE 40 MG TAB PO SCH (08:28)
[2023-05-04] MEDS: GABAPENTIN 400MG CAP PO SCH ×3 (08:28→21:05)
[2023-05-04] MEDS: OLANZapine 5 MG TAB PO SCH ×2 (08:28→21:20)
[2023-05-04] MEDS: TIOTROPIUM INHALER/CAPSULE (SPIRIVA) INH SCH (08:36)
[2023-05-04 08:59] LABS: ABG BASE EXCESS 8.9 (-2.0-2.0); ABG HCO3 35.6 MMOL/L (22.0-26.0); ABG O2 SATURATION 92.1 % (95.0-99.0); ABG PARTIAL PRESSURE O2 61.7 mmHg (75.0-100.0); ABG STANDARD HCO3 32.5 MMOL/L. (22.0-26.0); ABG TOTAL CO2 37.4 MMOL/L (23.0-31.0); ABG pH (ARTERIAL) 7.391 UNITS (7.350-7.450)
[2023-05-04 15:36] LABS: PROCALCITONIN 0.26 ng/ml
[2023-05-04] MEDS: NITROFURANTOIN (MACROBID) 100 MG CAP PO SCH (21:05)
[2023-05-04] MEDS: ATORVASTATIN 20 MG TAB PO SCH (21:05)
[2023-05-05] VITALS (22 sets, daily range): BP systolic 113–128; BP diastolic 50–60; TEMP 97–97.4; O2SAT 88–96
[2023-05-05] MEDS: IPRATROPIUM 0.5MG/ALBUTEROL 2.5MG INH SOL UD 3ML (DUONEB) NEB SCH ×4 (01:00→19:16)
[2023-05-05] MEDS: HEPARIN SOD (PORCINE) 5000UNITS/ML 1ML VIAL/SYRINGE SQ SCH ×3 (05:06→23:39)
[2023-05-05] MEDS: SYMBICORT 160/4.5MCG INHALER 6GM INH SCH ×2 (07:40→19:16)
[2023-05-05] MEDS: TIOTROPIUM INHALER/CAPSULE (SPIRIVA) INH SCH ×2 (07:40→15:05)
[2023-05-05 07:58] LABS: BASO % 0.3 % (0.0-1.0); EOS # 0.3 10^3/uL (0.0-0.5); EOS % 3.9 % (0.0-3.0); HEMATOCRIT 34.7 % (36.0-47.0); HEMOGLOBIN 10.8 g/dl (12.0-15.5); LYMPH # 1.3 10^3/uL (1.5-5.0); LYMPH % 16.1 % (24.0-44.0); MEAN CORPUSCULAR HEMOGLOBIN 30.9 pg (27.0-33.0); MEAN CORPUSCULAR HGB CONC 31.1 g/dl (32.0-36.5); MEAN CORPUSCULAR VOLUME 99.1 fl (80.0-96.0); MONO % 12.5 % (2.0-8.0); NEUTROPHILS # 5.1 10^3/uL (1.5-8.5); PLATELET COUNT, AUTOMATED 143 10^3/uL (150-450); WHITE BLOOD COUNT 7.8 10^3/uL (4.0-10.0)
[2023-05-05 08:05] LABS: ABG BASE EXCESS 5.2 (-2.0-2.0); ABG HCO3 30.7 MMOL/L (22.0-26.0); ABG PARTIAL PRESSURE CO2 49.3 mmHg (35.0-45.0); ABG PARTIAL PRESSURE O2 65.1 mmHg (75.0-100.0); ABG TOTAL CO2 32.2 MMOL/L (23.0-31.0); ABG pH (ARTERIAL) 7.412 UNITS (7.350-7.450)
[2023-05-05 08:22] LABS: BLOOD UREA NITROGEN 10 MG/DL (9-23); CALCIUM LEVEL 8.6 MG/DL (8.3-10.6); CARBON DIOXIDE LEVEL 37 MMOL/L (20-31); CHLORIDE LEVEL 99 MMOL/L (98-107); CREATININE FOR GFR 0.73 MG/DL (0.55-1.30); GLOMERULAR FILTRATION RATE > 60.0 (>39); GLUCOSE, FASTING 119 MG/DL (74-106); MAGNESIUM LEVEL 1.7 MG/DL (1.8-2.4); POTASSIUM SERUM 3.3 MMOL/L (3.5-5.1); SODIUM LEVEL 143 MMOL/L (136-145)
[2023-05-05] MEDS: OLANZapine 5 MG TAB PO SCH ×2 (09:40→20:54)
[2023-05-05] MEDS: LACTOBACILLUS ACIDOPHILUS CAP (BACID) PO SCH ×2 (09:40→20:55)
[2023-05-05] MEDS: NITROFURANTOIN (MACROBID) 100 MG CAP PO SCH ×2 (09:40→20:54)
[2023-05-05] MEDS: GABAPENTIN 400MG CAP PO SCH ×3 (09:40→20:55)
[2023-05-05] MEDS: PANTOPRAZOLE 40MG TAB (PROTONIX) PO SCH (09:40)
[2023-05-05] MEDS: DOCUSATE SODIUM 100MG CAPSULE PO SCH ×2 (09:40→20:54)
[2023-05-05] MEDS: FUROSEMIDE 40 MG TAB PO SCH (09:41)
[2023-05-05] MEDS: CEFDINIR 300 MG CAP (OMNICEF) PO SCH ×2 (15:14→20:54)
[2023-05-05] MEDS: ATORVASTATIN 20 MG TAB PO SCH (20:54)
[2023-05-05] MEDS: LATANOPROST 0.005% OPHTH SOLN 2.5 ML OU SCH (20:55)
[2023-05-05] MEDS ORDERED: POTASSIUM CHLORIDE 10MEQ SR TABLET PO STA (22:53)
[2023-05-05] MEDS: MAG SULF 1GM/100ML (MAG RUN) 100 ML IV SCH (23:28)
[2023-05-06] VITALS (8 sets, daily range): BP systolic 118–142; BP diastolic 56–68; TEMP 96.7–98.4; O2SAT 92–98
[2023-05-06] MEDS: MAG SULF 1GM/100ML (MAG RUN) 100 ML IV SCH (00:41)
[2023-05-06] MEDS: IPRATROPIUM 0.5MG/ALBUTEROL 2.5MG INH SOL UD 3ML (DUONEB) NEB SCH ×3 (01:37→13:30)
[2023-05-06 06:09] LABS: BASO % 0.3 % (0.0-1.0); EOS # 0.3 10^3/uL (0.0-0.5); EOS % 3.5 % (0.0-3.0); HEMATOCRIT 34.9 % (36.0-47.0); HEMOGLOBIN 10.7 g/dl (12.0-15.5); LYMPH # 1.4 10^3/uL (1.5-5.0); LYMPH % 15.4 % (24.0-44.0); MEAN CORPUSCULAR HEMOGLOBIN 30.9 pg (27.0-33.0); MEAN CORPUSCULAR HGB CONC 30.7 g/dl (32.0-36.5); MEAN CORPUSCULAR VOLUME 100.9 fl (80.0-96.0); MONO # 0.9 10^3/uL (0.0-0.8); MONO % 9.8 % (2.0-8.0); NEUTROPHILS # 6.1 10^3/uL (1.5-8.5); NEUTROPHILS % 69.6 % (36.0-66.0); PLATELET COUNT, AUTOMATED 158 10^3/uL (150-450); RED BLOOD COUNT 3.46 10^6/uL (4.00-5.40); WHITE BLOOD COUNT 8.8 10^3/uL (4.0-10.0)
[2023-05-06 06:35] LABS: BLOOD UREA NITROGEN 10 MG/DL (9-23); CALCIUM LEVEL 9.1 MG/DL (8.3-10.6); CARBON DIOXIDE LEVEL 35 MMOL/L (20-31); CHLORIDE LEVEL 102 MMOL/L (98-107); CREATININE FOR GFR 0.77 MG/DL (0.55-1.30); GLOMERULAR FILTRATION RATE > 60.0 (>39); GLUCOSE, FASTING 133 MG/DL (74-106); POTASSIUM SERUM 3.5 MMOL/L (3.5-5.1); SODIUM LEVEL 145 MMOL/L (136-145)
[2023-05-06] MEDS: HEPARIN SOD (PORCINE) 5000UNITS/ML 1ML VIAL/SYRINGE SQ SCH (06:46)
[2023-05-06] MEDS ORDERED: MACR100C43 PO (07:16)
[2023-05-06] MEDS ORDERED: PRED10TA2 PO (07:17)
[2023-05-06] MEDS: TIOTROPIUM INHALER/CAPSULE (SPIRIVA) INH SCH (07:52)
[2023-05-06] MEDS: SYMBICORT 160/4.5MCG INHALER 6GM INH SCH (07:52)
[2023-05-06] MEDS: DOCUSATE SODIUM 100MG CAPSULE PO SCH (09:22)
[2023-05-06] MEDS: FUROSEMIDE 40 MG TAB PO SCH (09:22)
[2023-05-06] MEDS: CEFDINIR 300 MG CAP (OMNICEF) PO SCH (09:22)
[2023-05-06] MEDS: OLANZapine 5 MG TAB PO SCH (09:22)
[2023-05-06] MEDS: NITROFURANTOIN (MACROBID) 100 MG CAP PO SCH (09:22)
[2023-05-06] MEDS: LACTOBACILLUS ACIDOPHILUS CAP (BACID) PO SCH (09:22)
[2023-05-06] MEDS: PANTOPRAZOLE 40MG TAB (PROTONIX) PO SCH (09:28)
[2023-05-06] MEDS: GABAPENTIN 400MG CAP PO SCH (09:28)
[2023-05-06] MEDS ORDERED: FOSFOMYCIN TROMETHAMINE 3 GM POWDER PACKET (MONUROL) PO ONE (12:00)
== END 2023-05-06 14:42 | disposition home or self-care (01) | DRG 871 ==
LOC: M ED 15:03 → M ED INP 23:38 → M PCU 05-04 11:55
PROVIDERS: ADMIT Internal Medicine; ATTEND Internal Medicine
DX: A41.9 Sepsis, unspecified organism (principal); G93.41 Metabolic encephalopathy; J96.22 Acute and chronic respiratory failure with hypercapnia; J96.11 Chronic respiratory failure with hypoxia; M46.26 Osteomyelitis of vertebra, lumbar region; I50.32 Chronic diastolic (congestive) heart failure; I13.0 Hypertensive heart and chronic kidney disease with heart failure and stage 1 through stage 4 chronic kidney disease, or unspecified chronic kidney disease; N30.00 Acute cystitis without hematuria; Z68.43 Body mass index [BMI] 50.0-59.9, adult; E66.2 Morbid (severe) obesity with alveolar hypoventilation; J44.1 Chronic obstructive pulmonary disease with (acute) exacerbation; J45.909 Unspecified asthma, uncomplicated; I27.29 Other secondary pulmonary hypertension; K21.9 Gastro-esophageal reflux disease without esophagitis; N18.30 Chronic kidney disease, stage 3 unspecified; F32.A Depression, unspecified; F41.9 Anxiety disorder, unspecified; N32.81 Overactive bladder; H40.9 Unspecified glaucoma; E78.5 Hyperlipidemia, unspecified; R32 Unspecified urinary incontinence; G43.709 Chronic migraine without aura, not intractable, without status migrainosus; Z98.1 Arthrodesis status; Z90.49 Acquired absence of other specified parts of digestive tract; Z98.42 Cataract extraction status, left eye; Z96.1 Presence of intraocular lens; Z87.891 Personal history of nicotine dependence; Z99.81 Dependence on supplemental oxygen; Z85.118 Personal history of other malignant neoplasm of bronchus and lung; Z99.3 Dependence on wheelchair; Z90.2 Acquired absence of lung [part of]; Z86.718 Personal history of other venous thrombosis and embolism; Z79.899 Other long term (current) drug therapy; Z79.2 Long term (current) use of antibiotics; Z79.891 Long term (current) use of opiate analgesic

== ENCOUNTER 2023-05-22 07:26 | Inpatient (IN) | payer MEDICARE, BC, OTHER ==
[~2023-05-22] VITALS: Ht 152.4 cm; Wt 128.3 kg
[~2023-05-22 07:26] MED LIST changes: +ALBU2.5V10 INH; +ARTIDRO4 OU; +FLUT1BLS8 INH; +MACR100C43 PO
[2023-05-22] MEDS ORDERED: methylPREDNISolone 125MG 2ML VIAL IV ONE (08:00)
[2023-05-22] MEDS ORDERED: ALBUTEROL SULFATE 2.5MG/0.5ML INH NEB SOLN INH ONE (08:00)
[2023-05-22] MEDS ORDERED: IPRATROPIUM 0.5MG/ALBUTEROL 2.5MG INH SOL UD 3ML (DUONEB) NEB ONE (08:00)
[2023-05-22 08:19] LABS: BASO # 0.1 10^3/uL (0.0-0.2); BASO % 0.4 % (0.0-1.0); EOS # 0.3 10^3/uL (0.0-0.5); EOS % 2.9 % (0.0-3.0); HEMATOCRIT 36.3 % (36.0-47.0); LYMPH # 1.6 10^3/uL (1.5-5.0); LYMPH % 13.7 % (24.0-44.0); MEAN CORPUSCULAR HEMOGLOBIN 30.7 pg (27.0-33.0); MEAN CORPUSCULAR HGB CONC 30.3 g/dl (32.0-36.5); MEAN CORPUSCULAR VOLUME 101.4 fl (80.0-96.0); MONO # 1.1 10^3/uL (0.0-0.8); MONO % 9.5 % (2.0-8.0); NEUTROPHILS # 8.5 10^3/uL (1.5-8.5); NEUTROPHILS % 71.5 % (36.0-66.0); PLATELET COUNT, AUTOMATED 240 10^3/uL (150-450); RED BLOOD COUNT 3.58 10^6/uL (4.00-5.40); WHITE BLOOD COUNT 11.9 10^3/uL (4.0-10.0)
[2023-05-22 08:27] LABS: ABG BASE EXCESS 9.9 (-2.0-2.0); ABG HCO3 38.7 MMOL/L (22.0-26.0); ABG O2 SATURATION 91.6 % (95.0-99.0); ABG PARTIAL PRESSURE O2 61.1 mmHg (75.0-100.0); ABG STANDARD HCO3 33.6 MMOL/L. (22.0-26.0)
[2023-05-22 08:29] LABS: ABG PARTIAL PRESSURE CO2 76.8 mmHg (35.0-45.0)
[2023-05-22 08:36] LABS: INR 0.92; PROTHROMBIN TIME 12.1 SECONDS (12.5-14.5)
[2023-05-22 08:45] LABS: CK-MB VALUE MASS < 1.0 NG/ML (<3.6)
[2023-05-22 08:47] LABS: ALBUMIN 3.3 G/DL (3.2-5.2); ALKALINE PHOSPHATASE 89 U/L (46-116); ALT/SGPT 36 U/L (7.0-40); AST/SGOT 21 U/L (<34); BILIRUBIN,DIRECT < 0.1 MG/DL (<0.4); BILIRUBIN,TOTAL 0.2 MG/DL (0.3-1.2); BLOOD UREA NITROGEN 17 MG/DL (9-23); CARBON DIOXIDE LEVEL 38 MMOL/L (20-31); CHLORIDE LEVEL 99 MMOL/L (98-107); CPK CREATINE PHOSPHOKINASE 69 U/L (34-145); GLOMERULAR FILTRATION RATE > 60.0 (>39); GLUCOSE, FASTING 124 MG/DL (74-106); MB/CK RELATIVE INDEX 1.44 (< OR =4); POTASSIUM SERUM 3.6 MMOL/L (3.5-5.1); SODIUM LEVEL 141 MMOL/L (136-145); TOTAL PROTEIN 6.4 G/DL (5.7-8.2)
[2023-05-22 08:48] LABS: THYROID STIMULATING HORMONE 2.718 uIU/ML (0.55-4.78); THYROXINE (T4) 8.3 UG/DL (4.5-10.9)
[2023-05-22 09:52] LABS: CK-MB VALUE MASS < 1.0 NG/ML (<3.6)
[2023-05-22 09:53] LABS: CPK CREATINE PHOSPHOKINASE 71 U/L (34-145)
[2023-05-22 10:32] LABS: ABG HCO3 35.9 MMOL/L (22.0-26.0); ABG O2 SATURATION 95.4 % (95.0-99.0); ABG PARTIAL PRESSURE O2 76.5 mmHg (75.0-100.0); ABG STANDARD HCO3 31.8 MMOL/L. (22.0-26.0); ABG pH (ARTERIAL) 7.338 UNITS (7.350-7.450)
[2023-05-22] MEDS ORDERED: MED REC IN PROGRESS XX SCH (10:35)
[2023-05-22] MEDS ORDERED: OLANZapine 5 MG TAB PO ONE (10:35)
[2023-05-22 10:36] LABS: ABG PARTIAL PRESSURE CO2 68.4 mmHg (35.0-45.0)
[2023-05-22] MEDS ORDERED: IPRATROPIUM 0.5MG/ALBUTEROL 2.5MG INH SOL UD 3ML (DUONEB) NEB PRN (10:40)
[2023-05-22] MEDS ORDERED: ACETAMINOPHEN TAB 650MG DOSE (2X325MG) PO PRN (10:40)
[2023-05-22 11:33] LABS: PROCALCITONIN 0.18 ng/ml
[2023-05-22] MEDS: FUROSEMIDE 100MG/10ML VIAL IV SCH ×2 (12:03→17:06)
[2023-05-22] MEDS: LevoFLOXacin 750 MG TABLET PO SCH (12:03)
[2023-05-22] MEDS ORDERED: XIID5DRO OU (12:23)
[2023-05-22] MEDS ORDERED: HOME MED LIST COMPLETE! XX SCH (12:25)
[2023-05-22] MEDS ORDERED: ONDANSETRON 4MG ORAL DISINTEGRATING TAB SL PRN (15:45)
[2023-05-22] MEDS ORDERED: SUMAtriptan SUCCINATE 25 MG TAB PO PRN (15:45)
[2023-05-22] MEDS: IPRATROPIUM 0.5MG/ALBUTEROL 2.5MG INH SOL UD 3ML (DUONEB) NEB SCH ×2 (16:12→20:07)
[2023-05-22 16:24] VITALS: BP 153/93; TEMP 96.8; O2SAT 97
[2023-05-22 16:34] LABS: ABG BASE EXCESS 7.9 (-2.0-2.0); ABG HCO3 34.6 MMOL/L (22.0-26.0); ABG O2 SATURATION 97.8 % (95.0-99.0); ABG PARTIAL PRESSURE CO2 58.3 mmHg (35.0-45.0); ABG PARTIAL PRESSURE O2 100.7 mmHg (75.0-100.0); ABG STANDARD HCO3 31.7 MMOL/L. (22.0-26.0); ABG TOTAL CO2 36.4 MMOL/L (23.0-31.0); ABG pH (ARTERIAL) 7.391 UNITS (7.350-7.450)
[2023-05-22] MEDS: HEPARIN SOD (PORCINE) 5000UNITS/ML 1ML VIAL/SYRINGE SQ SCH ×2 (17:06→21:55)
[2023-05-22] MEDS: methylPREDNISolone 40MG 1ML VIAL IV SCH (17:06)
[2023-05-22] MEDS: GABAPENTIN 400MG CAP PO SCH ×2 (17:07→21:55)
[2023-05-22] MEDS: PANTOPRAZOLE 40MG TAB (PROTONIX) PO SCH (17:07)
[2023-05-22 19:23] VITALS: BP 153/90; TEMP 97; O2SAT 95
[2023-05-22] MEDS: OLANZapine 5 MG TAB PO SCH (21:55)
[2023-05-22] MEDS: LATANOPROST 0.005% OPHTH SOLN 2.5 ML OU SCH (21:55)
[2023-05-22] MEDS: ATORVASTATIN 20 MG TAB PO SCH (21:55)
[2023-05-22] MEDS: LACTOBACILLUS ACIDOPHILUS CAP (BACID) PO SCH (21:56)
[2023-05-22] MEDS: DOCUSATE SODIUM 100MG CAPSULE PO SCH (21:56)
[2023-05-22 23:24] VITALS: BP 132/70; TEMP 97.2; O2SAT 94
[2023-05-23] MEDS: methylPREDNISolone 40MG 1ML VIAL IV SCH ×3 (01:30→17:06)
[2023-05-23] MEDS: IPRATROPIUM 0.5MG/ALBUTEROL 2.5MG INH SOL UD 3ML (DUONEB) NEB SCH ×4 (01:54→20:16)
[2023-05-23 03:53] VITALS: BP 142/74; TEMP 97.4; O2SAT 92
[2023-05-23] MEDS: LevoFLOXacin 750 MG TABLET PO SCH (06:05)
[2023-05-23] MEDS: HEPARIN SOD (PORCINE) 5000UNITS/ML 1ML VIAL/SYRINGE SQ SCH ×3 (06:05→21:05)
[2023-05-23 06:16] LABS: BASO % 0.1 % (0.0-1.0); HEMATOCRIT 33.5 % (36.0-47.0); HEMOGLOBIN 10.6 g/dl (12.0-15.5); LYMPH # 0.6 10^3/uL (1.5-5.0); LYMPH % 3.3 % (24.0-44.0); MEAN CORPUSCULAR HEMOGLOBIN 30.6 pg (27.0-33.0); MEAN CORPUSCULAR HGB CONC 31.6 g/dl (32.0-36.5); MEAN CORPUSCULAR VOLUME 96.8 fl (80.0-96.0); MONO # 0.4 10^3/uL (0.0-0.8); MONO % 2.4 % (2.0-8.0); NEUTROPHILS % 92.5 % (36.0-66.0); PLATELET COUNT, AUTOMATED 236 10^3/uL (150-450); RED BLOOD COUNT 3.46 10^6/uL (4.00-5.40); WHITE BLOOD COUNT 17.3 10^3/uL (4.0-10.0)
[2023-05-23 06:52] LABS: BLOOD UREA NITROGEN 21 MG/DL (9-23); CARBON DIOXIDE LEVEL 36 MMOL/L (20-31); CHLORIDE LEVEL 97 MMOL/L (98-107); GLOMERULAR FILTRATION RATE > 60.0 (>39); GLUCOSE, FASTING 391 MG/DL (74-106); MAGNESIUM LEVEL 1.9 MG/DL (1.8-2.4); POTASSIUM SERUM 3.7 MMOL/L (3.5-5.1); SODIUM LEVEL 138 MMOL/L (136-145)
[2023-05-23] MEDS ORDERED: GLUCAGON INJ 1MG VIAL SC PRN (07:10)
[2023-05-23] MEDS ORDERED: GLUCOSE 4GM CHEW TABLET PO PRN (07:10)
[2023-05-23] MEDS ORDERED: DEXTROSE 50% 50ML SYRINGE IV PRN (07:10)
[2023-05-23 07:57] VITALS: BP 145/75; TEMP 96.9; O2SAT 100
[2023-05-23] MEDS: INSULIN LISPRO (NovoLOG) PER UNIT SC SCH ×4 (09:43→20:58)
[2023-05-23] MEDS: FUROSEMIDE 100MG/10ML VIAL IV SCH ×2 (09:44→17:06)
[2023-05-23] MEDS: MULTIVITAMINS/MINERALS THERAP 1 TAB PO SCH (09:44)
[2023-05-23] MEDS: DOCUSATE SODIUM 100MG CAPSULE PO SCH ×2 (09:44→20:58)
[2023-05-23] MEDS: guaiFENesin 200 MG TAB PO SCH ×2 (09:44→20:58)
[2023-05-23] MEDS: LACTOBACILLUS ACIDOPHILUS CAP (BACID) PO SCH ×2 (09:44→20:59)
[2023-05-23] MEDS: PANTOPRAZOLE 40MG TAB (PROTONIX) PO SCH (09:44)
[2023-05-23] MEDS: GABAPENTIN 400MG CAP PO SCH ×3 (09:44→20:59)
[2023-05-23] MEDS: OLANZapine 5 MG TAB PO SCH ×2 (09:44→20:59)
[2023-05-23 12:08] VITALS: BP 135/65; TEMP 97.2; O2SAT 95
[2023-05-23 15:26] VITALS: BP 149/67; TEMP 97; O2SAT 93
[2023-05-23 20:15] VITALS: BP 133/73; TEMP 97.4; O2SAT 97
[2023-05-23] MEDS: ATORVASTATIN 20 MG TAB PO SCH (20:59)
[2023-05-23] MEDS: LATANOPROST 0.005% OPHTH SOLN 2.5 ML OU SCH (21:30)
[2023-05-23 23:45] VITALS: BP 156/71; TEMP 97.5; O2SAT 90
[2023-05-23] MEDS ORDERED: ISOVUE-370 76% 100ML VIAL As Ordered ONE (23:54)
[2023-05-24] VITALS (8 sets, daily range): BP systolic 131–152; BP diastolic 64–93; TEMP 97–97.3; O2SAT 90–97
[2023-05-24] MEDS: methylPREDNISolone 40MG 1ML VIAL IV SCH ×2 (00:28→08:38)
[2023-05-24 00:31] LABS: HEMATOCRIT 32.1 % (36.0-47.0); HEMOGLOBIN 10.2 g/dl (12.0-15.5); MEAN CORPUSCULAR HEMOGLOBIN 30.8 pg (27.0-33.0); MEAN CORPUSCULAR HGB CONC 31.8 g/dl (32.0-36.5); PLATELET COUNT, AUTOMATED 252 10^3/uL (150-450); RED BLOOD COUNT 3.31 10^6/uL (4.00-5.40); WHITE BLOOD COUNT 20.7 10^3/uL (4.0-10.0)
[2023-05-24] MEDS: IPRATROPIUM 0.5MG/ALBUTEROL 2.5MG INH SOL UD 3ML (DUONEB) NEB SCH ×4 (00:38→19:58)
[2023-05-24 00:42] LABS: INR 1.02; PROTHROMBIN TIME 13.1 SECONDS (12.5-14.5)
[2023-05-24 00:43] LABS: PARTIAL THROMBOPLASTIN TIME 22.3 SECONDS (24.8-34.2)
[2023-05-24 00:55] LABS: ALKALINE PHOSPHATASE 72 U/L (46-116); ALT/SGPT 24 U/L (7.0-40); AST/SGOT 22 U/L (<34); BILIRUBIN,TOTAL < 0.2 MG/DL (0.3-1.2); BLOOD UREA NITROGEN 21 MG/DL (9-23); CALCIUM LEVEL 8.2 MG/DL (8.3-10.6); CARBON DIOXIDE LEVEL 37 MMOL/L (20-31); CHLORIDE LEVEL 96 MMOL/L (98-107); CHOLESTEROL LEVEL 188 MG/DL (<200); CHOLESTEROL RISK RATIO 2.74 (<5); CREATININE FOR GFR 0.97 MG/DL (0.55-1.30); GLOMERULAR FILTRATION RATE > 60.0 (>39); GLUCOSE, FASTING 333 MG/DL (74-106); HDL CHOLESTEROL 68.4 MG/DL (>40); NON-HDL-C 119.6 MG/DL; SODIUM LEVEL 138 MMOL/L (136-145); TOTAL PROTEIN 6.3 G/DL (5.7-8.2); TRIGLYCERIDES LEVEL 103 MG/DL (<150)
[2023-05-24 01:03] LABS: ABG BASE EXCESS 11.3 (-2.0-2.0); ABG O2 SATURATION 99.4 % (95.0-99.0); ABG PARTIAL PRESSURE O2 237.8 mmHg (75.0-100.0); ABG STANDARD HCO3 35.1 MMOL/L. (22.0-26.0); ABG TOTAL CO2 41.1 MMOL/L (23.0-31.0)
[2023-05-24] MEDS: LevoFLOXacin 750 MG TABLET PO SCH (05:20)
[2023-05-24] MEDS: HEPARIN SOD (PORCINE) 5000UNITS/ML 1ML VIAL/SYRINGE SQ SCH ×3 (05:21→22:28)
[2023-05-24 05:57] LABS: BASO % 0.1 % (0.0-1.0); HEMATOCRIT 34.2 % (36.0-47.0); HEMOGLOBIN 10.6 g/dl (12.0-15.5); LYMPH # 0.7 10^3/uL (1.5-5.0); LYMPH % 3.3 % (24.0-44.0); MEAN CORPUSCULAR HEMOGLOBIN 30.4 pg (27.0-33.0); MONO # 0.8 10^3/uL (0.0-0.8); MONO % 3.7 % (2.0-8.0); NEUTROPHILS # 19.5 10^3/uL (1.5-8.5); NEUTROPHILS % 91.2 % (36.0-66.0); PLATELET COUNT, AUTOMATED 256 10^3/uL (150-450); RED BLOOD COUNT 3.49 10^6/uL (4.00-5.40); WHITE BLOOD COUNT 21.4 10^3/uL (4.0-10.0)
[2023-05-24 06:21] LABS: BLOOD UREA NITROGEN 27 MG/DL (9-23); CALCIUM LEVEL 8.7 MG/DL (8.3-10.6); CARBON DIOXIDE LEVEL 39 MMOL/L (20-31); CHLORIDE LEVEL 96 MMOL/L (98-107); CREATININE FOR GFR 0.88 MG/DL (0.55-1.30); GLOMERULAR FILTRATION RATE > 60.0 (>39); GLUCOSE, FASTING 318 MG/DL (74-106); MAGNESIUM LEVEL 2.1 MG/DL (1.8-2.4); POTASSIUM SERUM 3.8 MMOL/L (3.5-5.1); SODIUM LEVEL 141 MMOL/L (136-145)
[2023-05-24 06:25] LABS: VENOUS BASE EXCESS 8.3 (-2.0-2.0); VENOUS HCO3 35.1 MMOL/L (23.0-27.0); VENOUS O2 SATURATION 98.7 % (60.0-80.0); VENOUS PARTIAL PRESSURE CO2 60.5 mmHg (38.0-50.0); VENOUS PARTIAL PRESSURE O2 133.2 mmHg (30.0-50.0); VENOUS PH 7.382 UNITS (7.330-7.430); VENOUS STANDARD HCO3 32.1 MMOL/L
[2023-05-24] MEDS: FUROSEMIDE 100MG/10ML VIAL IV SCH ×2 (08:38→17:10)
[2023-05-24] MEDS: INSULIN LISPRO (NovoLOG) PER UNIT SC SCH ×4 (08:38→20:28)
[2023-05-24] MEDS: PANTOPRAZOLE 40MG TAB (PROTONIX) PO SCH (08:39)
[2023-05-24] MEDS: LACTOBACILLUS ACIDOPHILUS CAP (BACID) PO SCH ×2 (08:39→20:09)
[2023-05-24] MEDS: MULTIVITAMINS/MINERALS THERAP 1 TAB PO SCH (08:39)
[2023-05-24] MEDS: guaiFENesin 200 MG TAB PO SCH ×2 (08:39→20:09)
[2023-05-24] MEDS: GABAPENTIN 400MG CAP PO SCH ×3 (08:39→20:09)
[2023-05-24] MEDS: DOCUSATE SODIUM 100MG CAPSULE PO SCH ×2 (08:39→20:09)
[2023-05-24] MEDS: OLANZapine 5 MG TAB PO SCH ×2 (08:47→20:09)
[2023-05-24] MEDS ORDERED: LEVEMIR (INSULIN DETEMIR) 1 UNITS/0.01ML SC SCH (09:00)
[2023-05-24] MEDS ORDERED: LEVO1TAB40 PO (11:15)
[2023-05-24] MEDS ORDERED: FURO40TA2 PO (11:15)
[2023-05-24] MEDS ORDERED: PRED50TA PO (11:15)
[2023-05-24 13:20] LABS: HEMOGLOBIN A1c 6.8 % (4.0-6.0)
[2023-05-24 15:22] LABS: HEMATOCRIT 34.5 % (36.0-47.0); MEAN CORPUSCULAR HEMOGLOBIN 31.3 pg (27.0-33.0); MEAN CORPUSCULAR HGB CONC 31.9 g/dl (32.0-36.5); MEAN CORPUSCULAR VOLUME 98.3 fl (80.0-96.0); PLATELET COUNT, AUTOMATED 249 10^3/uL (150-450); RED BLOOD COUNT 3.51 10^6/uL (4.00-5.40); WHITE BLOOD COUNT 23.8 10^3/uL (4.0-10.0)
[2023-05-24] MEDS: ATORVASTATIN 20 MG TAB PO SCH (20:09)
[2023-05-24] MEDS: LATANOPROST 0.005% OPHTH SOLN 2.5 ML OU SCH (20:10)
[2023-05-25] MEDS: IPRATROPIUM 0.5MG/ALBUTEROL 2.5MG INH SOL UD 3ML (DUONEB) NEB SCH ×2 (01:59→07:55)
[2023-05-25 05:31] VITALS: BP 137/73; TEMP 97.5; O2SAT 94
[2023-05-25] MEDS: LevoFLOXacin 750 MG TABLET PO SCH (05:33)
[2023-05-25] MEDS: HEPARIN SOD (PORCINE) 5000UNITS/ML 1ML VIAL/SYRINGE SQ SCH (05:34)
[2023-05-25 05:51] LABS: BASO % 0.1 % (0.0-1.0); EOS % 0.1 % (0.0-3.0); HEMATOCRIT 34.2 % (36.0-47.0); HEMOGLOBIN 10.8 g/dl (12.0-15.5); LYMPH # 2.6 10^3/uL (1.5-5.0); LYMPH % 14.1 % (24.0-44.0); MEAN CORPUSCULAR HEMOGLOBIN 30.9 pg (27.0-33.0); MEAN CORPUSCULAR HGB CONC 31.6 g/dl (32.0-36.5); MEAN CORPUSCULAR VOLUME 97.7 fl (80.0-96.0); MONO % 8.7 % (2.0-8.0); NEUTROPHILS # 13.6 10^3/uL (1.5-8.5); NEUTROPHILS % 75.2 % (36.0-66.0); PLATELET COUNT, AUTOMATED 244 10^3/uL (150-450); WHITE BLOOD COUNT 18.1 10^3/uL (4.0-10.0)
[2023-05-25 05:53] LABS: MONO # 1.6 10^3/uL (0.0-0.8)
[2023-05-25 06:18] LABS: BLOOD UREA NITROGEN 28 MG/DL (9-23); CARBON DIOXIDE LEVEL 39 MMOL/L (20-31); CHLORIDE LEVEL 98 MMOL/L (98-107); GLOMERULAR FILTRATION RATE > 60.0 (>39); GLUCOSE, FASTING 172 MG/DL (74-106); MAGNESIUM LEVEL 2.1 MG/DL (1.8-2.4); POTASSIUM SERUM 3.2 MMOL/L (3.5-5.1); SODIUM LEVEL 142 MMOL/L (136-145)
[2023-05-25] MEDS ORDERED: POTASSIUM CHLORIDE 10MEQ SR TABLET PO ONE (07:35)
[2023-05-25] MEDS: DOCUSATE SODIUM 100MG CAPSULE PO SCH (08:35)
[2023-05-25] MEDS: guaiFENesin 200 MG TAB PO SCH (08:35)
[2023-05-25] MEDS: MULTIVITAMINS/MINERALS THERAP 1 TAB PO SCH (08:35)
[2023-05-25] MEDS: PANTOPRAZOLE 40MG TAB (PROTONIX) PO SCH (08:35)
[2023-05-25] MEDS: LACTOBACILLUS ACIDOPHILUS CAP (BACID) PO SCH (08:35)
[2023-05-25] MEDS: GABAPENTIN 400MG CAP PO SCH (08:35)
[2023-05-25] MEDS: OLANZapine 5 MG TAB PO SCH (08:35)
[2023-05-25] MEDS: methylPREDNISolone 40MG 1ML VIAL IV SCH (08:36)
[2023-05-25] MEDS: FUROSEMIDE 100MG/10ML VIAL IV SCH (08:37)
[2023-05-25 08:38] VITALS: BP 142/70
[2023-05-25] MEDS: INSULIN LISPRO (NovoLOG) PER UNIT SC SCH (08:38)
== END 2023-05-25 12:05 | disposition home or self-care (01) | DRG 189 ==
LOC: EDBD 07:26 → M ED 07:26 → M ED INP 10:39 → M PCU 16:07 → M MSPAV 05-24 20:34
PROVIDERS: ADMIT Family Medicine; ATTEND Family Medicine
DX: J96.21 Acute and chronic respiratory failure with hypoxia (principal); G93.41 Metabolic encephalopathy; I50.32 Chronic diastolic (congestive) heart failure; J44.1 Chronic obstructive pulmonary disease with (acute) exacerbation; I13.0 Hypertensive heart and chronic kidney disease with heart failure and stage 1 through stage 4 chronic kidney disease, or unspecified chronic kidney disease; Z68.43 Body mass index [BMI] 50.0-59.9, adult; J96.22 Acute and chronic respiratory failure with hypercapnia; J45.909 Unspecified asthma, uncomplicated; G47.33 Obstructive sleep apnea (adult) (pediatric); I27.20 Pulmonary hypertension, unspecified; N18.30 Chronic kidney disease, stage 3 unspecified; K21.9 Gastro-esophageal reflux disease without esophagitis; E66.01 Morbid (severe) obesity due to excess calories; F41.9 Anxiety disorder, unspecified; F32.A Depression, unspecified; G43.909 Migraine, unspecified, not intractable, without status migrainosus; N32.81 Overactive bladder; I27.29 Other secondary pulmonary hypertension; Z99.81 Dependence on supplemental oxygen; H40.9 Unspecified glaucoma; Z90.2 Acquired absence of lung [part of]; Z90.49 Acquired absence of other specified parts of digestive tract; Z98.42 Cataract extraction status, left eye; Z87.891 Personal history of nicotine dependence; Z85.118 Personal history of other malignant neoplasm of bronchus and lung; Z79.891 Long term (current) use of opiate analgesic; Z79.899 Other long term (current) drug therapy; Z88.8 Allergy status to other drugs, medicaments and biological substances; Z20.822 Contact with and (suspected) exposure to COVID-19

== ENCOUNTER 2023-06-02 12:01 | Emergency (ER) | payer MEDICARE, BC, OTHER ==
[~2023-06-02] VITALS: Ht 154.9 cm; Wt 123.6 kg
[~2023-06-02 12:01] MED LIST changes: +LEVO1TAB40 PO; +XIID5DRO OU
[2023-06-02 13:25] LABS: BASO % 0.2 % (0.0-1.0); EOS # 0.4 10^3/uL (0.0-0.5); EOS % 2.4 % (0.0-3.0); HEMATOCRIT 37.2 % (36.0-47.0); HEMOGLOBIN 11.5 g/dl (12.0-15.5); LYMPH # 2.2 10^3/uL (1.5-5.0); LYMPH % 13.2 % (24.0-44.0); MEAN CORPUSCULAR HEMOGLOBIN 30.8 pg (27.0-33.0); MEAN CORPUSCULAR HGB CONC 30.9 g/dl (32.0-36.5); MEAN CORPUSCULAR VOLUME 99.7 fl (80.0-96.0); MONO # 1.2 10^3/uL (0.0-0.8); MONO % 6.9 % (2.0-8.0); NEUTROPHILS # 12.5 10^3/uL (1.5-8.5); NEUTROPHILS % 73.8 % (36.0-66.0); PLATELET COUNT, AUTOMATED 195 10^3/uL (150-450); RED BLOOD COUNT 3.73 10^6/uL (4.00-5.40)
[2023-06-02 13:45] LABS: VENOUS BASE EXCESS 8.1 (-2.0-2.0); VENOUS HCO3 38.1 MMOL/L (23.0-27.0); VENOUS O2 SATURATION 45.1 % (60.0-80.0); VENOUS PARTIAL PRESSURE O2 27.3 mmHg (30.0-50.0); VENOUS PH 7.274 UNITS (7.330-7.430); VENOUS STANDARD HCO3 30.6 MMOL/L; VENOUS TOTAL CO2 40.6 MMOL/L (24.0-28.0)
[2023-06-02 13:53] LABS: OSMOLALITY SERUM 299 MOSM/KG (280-301)
[2023-06-02 13:58] LABS: ALBUMIN 3.5 G/DL (3.2-5.2); ALKALINE PHOSPHATASE 87 U/L (46-116); ALT/SGPT 32 U/L (7.0-40); AST/SGOT 17 U/L (<34); BILIRUBIN,DIRECT < 0.1 MG/DL (<0.4); BILIRUBIN,TOTAL 0.3 MG/DL (0.3-1.2); BLOOD UREA NITROGEN 21 MG/DL (9-23); CALCIUM LEVEL 9.1 MG/DL (8.3-10.6); CARBON DIOXIDE LEVEL > 40.0 MMOL/L (20-31); CHLORIDE LEVEL 94 MMOL/L (98-107); CREATININE FOR GFR 0.92 MG/DL (0.55-1.30); GLOMERULAR FILTRATION RATE > 60.0 (>39); GLUCOSE, FASTING 143 MG/DL (74-106); POTASSIUM SERUM 3.3 MMOL/L (3.5-5.1); SODIUM LEVEL 139 MMOL/L (136-145); THYROID STIMULATING HORMONE 3.211 uIU/ML (0.55-4.78); TOTAL PROTEIN 6.6 G/DL (5.7-8.2)
[2023-06-02 15:15] LABS: ABG BASE EXCESS 11.4 (-2.0-2.0); ABG HCO3 39.7 MMOL/L (22.0-26.0); ABG O2 SATURATION 92.5 % (95.0-99.0); ABG PARTIAL PRESSURE O2 66.4 mmHg (75.0-100.0); ABG TOTAL CO2 41.9 MMOL/L (23.0-31.0); ABG pH (ARTERIAL) 7.354 UNITS (7.350-7.450)
[2023-06-02 15:19] LABS: ABG PARTIAL PRESSURE CO2 72.8 mmHg (35.0-45.0)
[2023-06-02 18:23] VITALS: BP 146/82; TEMP 98.1; O2SAT 95
== END 2023-06-02 18:28 | disposition home or self-care (01) ==
LOC: EDBD 12:01 → M ED 12:01
DX: R25.1 Tremor, unspecified (principal); J96.12 Chronic respiratory failure with hypercapnia; I10 Essential (primary) hypertension; J44.9 Chronic obstructive pulmonary disease, unspecified; E78.5 Hyperlipidemia, unspecified; G47.33 Obstructive sleep apnea (adult) (pediatric); Z86.718 Personal history of other venous thrombosis and embolism; Z86.711 Personal history of pulmonary embolism; E66.9 Obesity, unspecified; I27.81 Cor pulmonale (chronic); Z85.118 Personal history of other malignant neoplasm of bronchus and lung; Z87.891 Personal history of nicotine dependence; Z88.8 Allergy status to other drugs, medicaments and biological substances; Z79.51 Long term (current) use of inhaled steroids; Z79.52 Long term (current) use of systemic steroids; Z79.899 Other long term (current) drug therapy

== ENCOUNTER 2023-06-08 01:43 | Inpatient (IN) | payer MEDICARE, BC, OTHER ==
[~2023-06-08] VITALS: Ht 154.9 cm; Wt 125.5 kg
[2023-06-08] VITALS (8 sets, daily range): BP systolic 108–109; BP diastolic 53–68; TEMP 96.6–97.1; O2SAT 88–96
[2023-06-08] MEDS ORDERED: methylPREDNISolone 125MG 2ML VIAL IV ONE (02:25)
[2023-06-08 02:27] LABS: VENOUS BASE EXCESS 11.8 (-2.0-2.0); VENOUS HCO3 39.7 MMOL/L (23.0-27.0); VENOUS O2 SATURATION 96.1 % (60.0-80.0); VENOUS PH 7.372 UNITS (7.330-7.430); VENOUS STANDARD HCO3 35.5 MMOL/L; VENOUS TOTAL CO2 41.9 MMOL/L (24.0-28.0)
[2023-06-08 02:34] LABS: BASO # 0.1 10^3/uL (0.0-0.2); BASO % 0.4 % (0.0-1.0); EOS # 0.3 10^3/uL (0.0-0.5); EOS % 2.6 % (0.0-3.0); HEMATOCRIT 36.4 % (36.0-47.0); LYMPH # 1.3 10^3/uL (1.5-5.0); LYMPH % 10.8 % (24.0-44.0); MEAN CORPUSCULAR HEMOGLOBIN 30.5 pg (27.0-33.0); MEAN CORPUSCULAR HGB CONC 30.2 g/dl (32.0-36.5); MEAN CORPUSCULAR VOLUME 100.8 fl (80.0-96.0); MONO # 1.2 10^3/uL (0.0-0.8); MONO % 10.5 % (2.0-8.0); NEUTROPHILS # 8.7 10^3/uL (1.5-8.5); NEUTROPHILS % 74.3 % (36.0-66.0); PLATELET COUNT, AUTOMATED 212 10^3/uL (150-450); RED BLOOD COUNT 3.61 10^6/uL (4.00-5.40); WHITE BLOOD COUNT 11.7 10^3/uL (4.0-10.0)
[2023-06-08 03:19] LABS: CK-MB VALUE MASS < 1.0 NG/ML (<3.6)
[2023-06-08 03:22] LABS: ALBUMIN 3.3 G/DL (3.2-5.2); ALKALINE PHOSPHATASE 78 U/L (46-116); ALT/SGPT 34 U/L (7.0-40); AST/SGOT 29 U/L (<34); BILIRUBIN,DIRECT < 0.1 MG/DL (<0.4); BILIRUBIN,TOTAL 0.2 MG/DL (0.3-1.2); BLOOD UREA NITROGEN 17 MG/DL (9-23); CALCIUM LEVEL 8.2 MG/DL (8.3-10.6); CARBON DIOXIDE LEVEL 37 MMOL/L (20-31); CHLORIDE LEVEL 96 MMOL/L (98-107); CREATININE FOR GFR 1.27 MG/DL (0.55-1.30); GLOMERULAR FILTRATION RATE 44.2 (>39); GLUCOSE, FASTING 189 MG/DL (74-106); POTASSIUM SERUM 3.5 MMOL/L (3.5-5.1); SODIUM LEVEL 140 MMOL/L (136-145); TOTAL PROTEIN 6.4 G/DL (5.7-8.2)
[2023-06-08] MEDS ORDERED: ISOVUE-370 76% 100ML VIAL As Ordered ONE (03:24)
[2023-06-08 03:25] LABS: CPK CREATINE PHOSPHOKINASE 71 U/L (34-145)
[2023-06-08] MEDS: IPRATROPIUM 0.5MG/ALBUTEROL 2.5MG INH SOL UD 3ML (DUONEB) NEB SCH ×6 (03:28→19:01)
[2023-06-08 04:13] LABS: CK-MB VALUE MASS < 1.0 NG/ML (<3.6)
[2023-06-08 04:18] LABS: CPK CREATINE PHOSPHOKINASE 57 U/L (34-145); MB/CK RELATIVE INDEX 1.75 (< OR =4)
[2023-06-08] MEDS ORDERED: ONDANSETRON 4MG 2ML VIAL IV PRN (04:55)
[2023-06-08] MEDS ORDERED: GLUCOSE 4GM CHEW TABLET PO PRN (04:55)
[2023-06-08] MEDS ORDERED: NS 350 ML IV ONE (04:55)
[2023-06-08] MEDS ORDERED: ALBUTEROL SULFATE 2.5MG/0.5ML INH NEB SOLN NEB PRN (04:55)
[2023-06-08] MEDS ORDERED: DEXTROSE 50% 50ML SYRINGE IV PRN (04:55)
[2023-06-08] MEDS ORDERED: GLUCAGON INJ 1MG VIAL SC PRN (04:55)
[2023-06-08] MEDS ORDERED: FURO40TA2 PO (06:09)
[2023-06-08] MEDS ORDERED: OXYB15TA14 PO (06:09)
[2023-06-08] MEDS ORDERED: MAGN400T35 PO (06:09)
[2023-06-08] MEDS ORDERED: SPIR50TA4 PO (06:09)
[2023-06-08] MEDS ORDERED: ZINC1CAP2 PO (06:09)
[2023-06-08] MEDS ORDERED: OYST1TAB PO (06:09)
[2023-06-08] MEDS ORDERED: HOME MED LIST COMPLETE! XX SCH (06:10)
[2023-06-08] MEDS: INSULIN LISPRO (NovoLOG) PER UNIT SC SCH ×3 (06:42→18:51)
[2023-06-08] MEDS: HEPARIN SOD (PORCINE) 5000UNITS/ML 1ML VIAL/SYRINGE SC SCH ×3 (06:43→21:27)
[2023-06-08] MEDS ORDERED: PANTOPRAZOLE 40MG VIAL IV SCH (09:00)
[2023-06-08] MEDS ORDERED: SUMAtriptan SUCCINATE 25 MG TAB PO PRN (10:35)
[2023-06-08] MEDS: SPIRONOLACTONE 50 MG TAB PO SCH (11:00)
[2023-06-08] MEDS: FUROSEMIDE 20 MG TAB PO SCH ×2 (11:01→16:40)
[2023-06-08] MEDS: OLANZapine 5 MG TAB PO SCH ×2 (11:01→21:27)
[2023-06-08] MEDS: methylPREDNISolone 40MG 1ML VIAL IV SCH ×2 (11:01→18:51)
[2023-06-08] MEDS: MAGNESIUM OXIDE 400MG TAB (MAG-OX) PO SCH (11:01)
[2023-06-08 11:12] LABS: ABG BASE EXCESS 10.8 (-2.0-2.0); ABG HCO3 37.5 MMOL/L (22.0-26.0); ABG PARTIAL PRESSURE O2 146.6 mmHg (75.0-100.0); ABG STANDARD HCO3 34.6 MMOL/L. (22.0-26.0); ABG TOTAL CO2 39.4 MMOL/L (23.0-31.0); ABG pH (ARTERIAL) 7.403 UNITS (7.350-7.450)
[2023-06-08 11:15] LABS: ABG PARTIAL PRESSURE CO2 61.5 mmHg (35.0-45.0)
[2023-06-08] MEDS: GABAPENTIN 400MG CAP PO SCH ×2 (16:40→21:27)
[2023-06-08] MEDS: ATORVASTATIN 20 MG TAB PO SCH (21:27)
[2023-06-09] VITALS (34 sets, daily range): BP systolic 104–134; BP diastolic 54–66; TEMP 97.2–98.4; O2SAT 85–98
[2023-06-09] MEDS: INSULIN LISPRO (NovoLOG) PER UNIT SC SCH ×5 (00:27→20:18)
[2023-06-09] MEDS: IPRATROPIUM 0.5MG/ALBUTEROL 2.5MG INH SOL UD 3ML (DUONEB) NEB SCH ×4 (01:12→19:20)
[2023-06-09] MEDS: methylPREDNISolone 40MG 1ML VIAL IV SCH ×2 (04:01→15:14)
[2023-06-09] MEDS: HEPARIN SOD (PORCINE) 5000UNITS/ML 1ML VIAL/SYRINGE SC SCH ×3 (05:42→21:29)
[2023-06-09 06:03] LABS: VENOUS BASE EXCESS 12.9 (-2.0-2.0); VENOUS HCO3 40.8 MMOL/L (23.0-27.0); VENOUS O2 SATURATION 98.5 % (60.0-80.0); VENOUS PARTIAL PRESSURE CO2 71.8 mmHg (38.0-50.0); VENOUS PARTIAL PRESSURE O2 125.6 mmHg (30.0-50.0); VENOUS PH 7.372 UNITS (7.330-7.430); VENOUS STANDARD HCO3 36.7 MMOL/L
[2023-06-09 06:18] LABS: BLOOD UREA NITROGEN 25 MG/DL (9-23); CALCIUM LEVEL 8.3 MG/DL (8.3-10.6); CARBON DIOXIDE LEVEL > 40.0 MMOL/L (20-31); CHLORIDE LEVEL 96 MMOL/L (98-107); CREATININE FOR GFR 1.38 MG/DL (0.55-1.30); GLOMERULAR FILTRATION RATE 40.1 (>39); GLUCOSE, FASTING 227 MG/DL (74-106); POTASSIUM SERUM 3.6 MMOL/L (3.5-5.1); SODIUM LEVEL 140 MMOL/L (136-145)
[2023-06-09] MEDS ORDERED: oxyBUTYnin *DITROPAN XL* 5 MG TABCR PO SCH (09:00)
[2023-06-09] MEDS: MAGNESIUM OXIDE 400MG TAB (MAG-OX) PO SCH (09:41)
[2023-06-09] MEDS: GABAPENTIN 400MG CAP PO SCH ×3 (09:41→20:17)
[2023-06-09] MEDS: OLANZapine 5 MG TAB PO SCH ×2 (09:41→20:17)
[2023-06-09] MEDS: PANTOPRAZOLE 40MG TAB (PROTONIX) PO SCH (09:41)
[2023-06-09] MEDS: SPIRONOLACTONE 50 MG TAB PO SCH (09:41)
[2023-06-09] MEDS: FUROSEMIDE 20 MG TAB PO SCH (11:57)
[2023-06-09] MEDS ORDERED: PREVNAR-20 VACCINE 0.5ML SYRINGE IM.IMMUN ONE (15:00)
[2023-06-09] MEDS: ATORVASTATIN 20 MG TAB PO SCH (20:17)
[2023-06-10] VITALS (18 sets, daily range): BP systolic 119–160; BP diastolic 59–76; TEMP 96.8–98.2; O2SAT 81–97
[2023-06-10] MEDS: IPRATROPIUM 0.5MG/ALBUTEROL 2.5MG INH SOL UD 3ML (DUONEB) NEB SCH ×4 (01:09→19:34)
[2023-06-10] MEDS: methylPREDNISolone 40MG 1ML VIAL IV SCH ×2 (03:07→17:10)
[2023-06-10] MEDS: HEPARIN SOD (PORCINE) 5000UNITS/ML 1ML VIAL/SYRINGE SC SCH ×3 (05:28→20:57)
[2023-06-10] MEDS: FUROSEMIDE 20 MG TAB PO SCH (08:47)
[2023-06-10] MEDS: INSULIN LISPRO (NovoLOG) PER UNIT SC SCH ×4 (08:47→20:47)
[2023-06-10] MEDS: PANTOPRAZOLE 40MG TAB (PROTONIX) PO SCH (08:47)
[2023-06-10] MEDS: MAGNESIUM OXIDE 400MG TAB (MAG-OX) PO SCH (08:47)
[2023-06-10] MEDS: GABAPENTIN 400MG CAP PO SCH ×3 (08:48→20:56)
[2023-06-10] MEDS: SPIRONOLACTONE 50 MG TAB PO SCH (08:48)
[2023-06-10] MEDS: OLANZapine 5 MG TAB PO SCH ×2 (08:48→20:56)
[2023-06-10 13:07] LABS: HEMATOCRIT 30.9 % (36.0-47.0); HEMOGLOBIN 9.5 g/dl (12.0-15.5); MEAN CORPUSCULAR HEMOGLOBIN 30.7 pg (27.0-33.0); MEAN CORPUSCULAR HGB CONC 30.7 g/dl (32.0-36.5); PLATELET COUNT, AUTOMATED 208 10^3/uL (150-450); RED BLOOD COUNT 3.09 10^6/uL (4.00-5.40); WHITE BLOOD COUNT 14.3 10^3/uL (4.0-10.0)
[2023-06-10] MEDS: TIOTROPIUM INHALER/CAPSULE (SPIRIVA) INH SCH (13:14)
[2023-06-10] MEDS: ADVAIR HFA 115/21MCG INHALER INH SCH ×2 (13:14→19:34)
[2023-06-10 13:44] LABS: CALCIUM LEVEL 8.6 MG/DL (8.3-10.6); CREATININE FOR GFR 1.21 MG/DL (0.55-1.30); GLOMERULAR FILTRATION RATE 46.7 (>39); POTASSIUM SERUM 3.9 MMOL/L (3.5-5.1)
[2023-06-10] MEDS ORDERED: INSULIN LISPRO (NovoLOG) PER UNIT SC ONE (14:30)
[2023-06-10] MEDS: OYSTER SHELL CALCIUM 500 MG TAB PO SCH (14:59)
[2023-06-10] MEDS: CEFDINIR 300 MG CAP (OMNICEF) PO SCH ×2 (15:00→20:56)
[2023-06-10] MEDS: LACTOBACILLUS ACIDOPHILUS CAP (BACID) PO SCH ×2 (15:00→20:56)
[2023-06-10 15:23] LABS: HEMOGLOBIN A1c 7.5 % (4.0-6.0)
[2023-06-10] MEDS: ATORVASTATIN 20 MG TAB PO SCH (20:56)
[2023-06-10] MEDS: LATANOPROST 0.005% OPHTH SOLN 2.5 ML OU SCH (20:56)
[2023-06-10] MEDS ORDERED: LEVEMIR (INSULIN DETEMIR) 1 UNITS/0.01ML SC SCH (21:00)
[2023-06-11] VITALS (28 sets, daily range): BP systolic 133–148; BP diastolic 60–73; TEMP 96.8–99.3; O2SAT 86–97
[2023-06-11] MEDS: IPRATROPIUM 0.5MG/ALBUTEROL 2.5MG INH SOL UD 3ML (DUONEB) NEB SCH ×3 (01:22→13:23)
[2023-06-11] MEDS: HEPARIN SOD (PORCINE) 5000UNITS/ML 1ML VIAL/SYRINGE SC SCH ×3 (05:50→20:55)
[2023-06-11 06:55] LABS: HEMATOCRIT 30.5 % (36.0-47.0); HEMOGLOBIN 9.5 g/dl (12.0-15.5); MEAN CORPUSCULAR HEMOGLOBIN 30.7 pg (27.0-33.0); MEAN CORPUSCULAR HGB CONC 31.1 g/dl (32.0-36.5); MEAN CORPUSCULAR VOLUME 98.7 fl (80.0-96.0); PLATELET COUNT, AUTOMATED 186 10^3/uL (150-450); RED BLOOD COUNT 3.09 10^6/uL (4.00-5.40); WHITE BLOOD COUNT 11.8 10^3/uL (4.0-10.0)
[2023-06-11 07:18] LABS: CALCIUM LEVEL 9.2 MG/DL (8.3-10.6); CREATININE FOR GFR 1.04 MG/DL (0.55-1.30); GLOMERULAR FILTRATION RATE 55.6 (>39); POTASSIUM SERUM 3.9 MMOL/L (3.5-5.1)
[2023-06-11] MEDS: ADVAIR HFA 115/21MCG INHALER INH SCH ×2 (08:07→19:34)
[2023-06-11] MEDS: TIOTROPIUM INHALER/CAPSULE (SPIRIVA) INH SCH (08:07)
[2023-06-11] MEDS ORDERED: FUROSEMIDE 40MG/4ML VIAL IV SCH (09:00)
[2023-06-11] MEDS: INSULIN LISPRO (NovoLOG) PER UNIT SC SCH ×4 (09:29→20:55)
[2023-06-11] MEDS: CEFDINIR 300 MG CAP (OMNICEF) PO SCH ×2 (09:29→20:53)
[2023-06-11] MEDS: OLANZapine 5 MG TAB PO SCH ×2 (09:30→20:54)
[2023-06-11] MEDS: methylPREDNISolone 40MG 1ML VIAL IV SCH (09:30)
[2023-06-11] MEDS: MAGNESIUM OXIDE 400MG TAB (MAG-OX) PO SCH (09:30)
[2023-06-11] MEDS: OYSTER SHELL CALCIUM 500 MG TAB PO SCH (09:30)
[2023-06-11] MEDS: LACTOBACILLUS ACIDOPHILUS CAP (BACID) PO SCH ×2 (09:30→20:53)
[2023-06-11] MEDS: PANTOPRAZOLE 40MG TAB (PROTONIX) PO SCH (09:30)
[2023-06-11] MEDS: DIAPER RELIEF PASTE (DESITIN) 60GM TOP PRN (09:31)
[2023-06-11] MEDS: GABAPENTIN 400MG CAP PO SCH ×3 (09:31→20:54)
[2023-06-11] MEDS: LEVEMIR (INSULIN DETEMIR) 1 UNITS/0.01ML SC SCH ×2 (11:45→20:55)
[2023-06-11] MEDS ORDERED: FUROSEMIDE 20MG/2ML VIAL IV SCH (17:00)
[2023-06-11] MEDS: ALBUTEROL SULFATE 2.5MG/0.5ML INH NEB SOLN NEB SCH (19:33)
[2023-06-11] MEDS: LATANOPROST 0.005% OPHTH SOLN 2.5 ML OU SCH (20:53)
[2023-06-11] MEDS: ATORVASTATIN 20 MG TAB PO SCH (20:54)
[2023-06-12] VITALS (28 sets, daily range): BP systolic 128–140; BP diastolic 60–74; TEMP 97.4–98; O2SAT 88–98
[2023-06-12] MEDS: ALBUTEROL SULFATE 2.5MG/0.5ML INH NEB SOLN NEB SCH ×4 (01:04→20:53)
[2023-06-12] MEDS: HEPARIN SOD (PORCINE) 5000UNITS/ML 1ML VIAL/SYRINGE SC SCH ×3 (05:17→20:43)
[2023-06-12 05:31] LABS: ABG BASE EXCESS 12.4 (-2.0-2.0); ABG HCO3 39.3 MMOL/L (22.0-26.0); ABG O2 SATURATION 97.4 % (95.0-99.0); ABG PARTIAL PRESSURE O2 95.9 mmHg (75.0-100.0); ABG STANDARD HCO3 36.1 MMOL/L. (22.0-26.0); ABG TOTAL CO2 41.2 MMOL/L (23.0-31.0); ABG pH (ARTERIAL) 7.405 UNITS (7.350-7.450)
[2023-06-12 05:35] LABS: ABG PARTIAL PRESSURE CO2 64.1 mmHg (35.0-45.0)
[2023-06-12 06:45] LABS: HEMATOCRIT 32.3 % (36.0-47.0); MEAN CORPUSCULAR HEMOGLOBIN 30.2 pg (27.0-33.0); MEAN CORPUSCULAR VOLUME 97.6 fl (80.0-96.0); PLATELET COUNT, AUTOMATED 204 10^3/uL (150-450); RED BLOOD COUNT 3.31 10^6/uL (4.00-5.40); WHITE BLOOD COUNT 10.9 10^3/uL (4.0-10.0)
[2023-06-12 07:10] LABS: BLOOD UREA NITROGEN 24 MG/DL (9-23); CALCIUM LEVEL 9.7 MG/DL (8.3-10.6); CARBON DIOXIDE LEVEL 38 MMOL/L (20-31); CHLORIDE LEVEL 99 MMOL/L (98-107); CREATININE FOR GFR 0.88 MG/DL (0.55-1.30); GLOMERULAR FILTRATION RATE > 60.0 (>39); GLUCOSE, FASTING 264 MG/DL (74-106); POTASSIUM SERUM 3.9 MMOL/L (3.5-5.1); SODIUM LEVEL 141 MMOL/L (136-145)
[2023-06-12] MEDS: ADVAIR HFA 115/21MCG INHALER INH SCH ×2 (07:48→20:53)
[2023-06-12] MEDS: TIOTROPIUM INHALER/CAPSULE (SPIRIVA) INH SCH (07:48)
[2023-06-12] MEDS: FUROSEMIDE 20MG/2ML VIAL IV SCH ×2 (08:20→16:41)
[2023-06-12] MEDS: methylPREDNISolone 40MG 1ML VIAL IV SCH (08:20)
[2023-06-12] MEDS: LEVEMIR (INSULIN DETEMIR) 1 UNITS/0.01ML SC SCH ×2 (08:21→20:40)
[2023-06-12] MEDS: GABAPENTIN 400MG CAP PO SCH ×3 (08:21→20:42)
[2023-06-12] MEDS: INSULIN LISPRO (NovoLOG) PER UNIT SC SCH ×4 (08:21→20:40)
[2023-06-12] MEDS: OLANZapine 5 MG TAB PO SCH ×2 (08:21→20:41)
[2023-06-12] MEDS: PANTOPRAZOLE 40MG TAB (PROTONIX) PO SCH (08:22)
[2023-06-12] MEDS: OYSTER SHELL CALCIUM 500 MG TAB PO SCH (08:22)
[2023-06-12] MEDS: MAGNESIUM OXIDE 400MG TAB (MAG-OX) PO SCH (08:22)
[2023-06-12] MEDS: LACTOBACILLUS ACIDOPHILUS CAP (BACID) PO SCH ×2 (08:22→20:41)
[2023-06-12] MEDS: CEFDINIR 300 MG CAP (OMNICEF) PO SCH ×2 (08:22→20:43)
[2023-06-12] MEDS ORDERED: PILL CUTTER 1 EACH XX PRN (12:50)
[2023-06-12] MEDS: oxyCODONE 5MG TAB PO PRN ×2 (12:56→21:02)
[2023-06-12] MEDS: LATANOPROST 0.005% OPHTH SOLN 2.5 ML OU SCH (20:40)
[2023-06-12] MEDS: DIAPER RELIEF PASTE (DESITIN) 60GM TOP PRN (20:40)
[2023-06-12] MEDS: ATORVASTATIN 20 MG TAB PO SCH (20:41)
[2023-06-13] VITALS (16 sets, daily range): BP systolic 109–138; BP diastolic 58–72; TEMP 96.3–97.4; O2SAT 88–99
[2023-06-13] MEDS: ALBUTEROL SULFATE 2.5MG/0.5ML INH NEB SOLN NEB SCH ×4 (01:37→19:44)
[2023-06-13] MEDS: HEPARIN SOD (PORCINE) 5000UNITS/ML 1ML VIAL/SYRINGE SC SCH ×3 (06:35→21:02)
[2023-06-13 06:38] LABS: HEMATOCRIT 33.7 % (36.0-47.0); HEMOGLOBIN 10.4 g/dl (12.0-15.5); MEAN CORPUSCULAR HEMOGLOBIN 29.5 pg (27.0-33.0); MEAN CORPUSCULAR HGB CONC 30.9 g/dl (32.0-36.5); MEAN CORPUSCULAR VOLUME 95.7 fl (80.0-96.0); PLATELET COUNT, AUTOMATED 208 10^3/uL (150-450); RED BLOOD COUNT 3.52 10^6/uL (4.00-5.40); WHITE BLOOD COUNT 11.7 10^3/uL (4.0-10.0)
[2023-06-13 07:02] LABS: BLOOD UREA NITROGEN 24 MG/DL (9-23); CALCIUM LEVEL 9.2 MG/DL (8.3-10.6); CARBON DIOXIDE LEVEL 39 MMOL/L (20-31); CHLORIDE LEVEL 98 MMOL/L (98-107); CREATININE FOR GFR 0.77 MG/DL (0.55-1.30); GLOMERULAR FILTRATION RATE > 60.0 (>39); GLUCOSE, FASTING 193 MG/DL (74-106); POTASSIUM SERUM 3.7 MMOL/L (3.5-5.1); SODIUM LEVEL 140 MMOL/L (136-145)
[2023-06-13] MEDS: ADVAIR HFA 115/21MCG INHALER INH SCH ×2 (07:54→19:44)
[2023-06-13] MEDS: TIOTROPIUM INHALER/CAPSULE (SPIRIVA) INH SCH (07:54)
[2023-06-13] MEDS: FUROSEMIDE 20MG/2ML VIAL IV SCH ×2 (08:59→16:18)
[2023-06-13] MEDS: INSULIN LISPRO (NovoLOG) PER UNIT SC SCH ×5 (09:00→21:02)
[2023-06-13] MEDS: MAGNESIUM OXIDE 400MG TAB (MAG-OX) PO SCH (09:00)
[2023-06-13] MEDS: OLANZapine 5 MG TAB PO SCH ×2 (09:00→20:59)
[2023-06-13] MEDS: LACTOBACILLUS ACIDOPHILUS CAP (BACID) PO SCH ×2 (09:00→21:01)
[2023-06-13] MEDS: LEVEMIR (INSULIN DETEMIR) 1 UNITS/0.01ML SC SCH ×2 (09:00→21:03)
[2023-06-13] MEDS ORDERED: predniSONE 20 MG TAB PO SCH (09:00)
[2023-06-13] MEDS: PANTOPRAZOLE 40MG TAB (PROTONIX) PO SCH (09:01)
[2023-06-13] MEDS: CEFDINIR 300 MG CAP (OMNICEF) PO SCH ×2 (09:01→21:00)
[2023-06-13] MEDS: OYSTER SHELL CALCIUM 500 MG TAB PO SCH (09:01)
[2023-06-13] MEDS: GABAPENTIN 400MG CAP PO SCH ×3 (09:01→21:01)
[2023-06-13] MEDS: LATANOPROST 0.005% OPHTH SOLN 2.5 ML OU SCH (20:51)
[2023-06-13] MEDS: DIAPER RELIEF PASTE (DESITIN) 60GM TOP PRN (20:52)
[2023-06-13] MEDS: ATORVASTATIN 20 MG TAB PO SCH (21:01)
[2023-06-14] MEDS: ALBUTEROL SULFATE 2.5MG/0.5ML INH NEB SOLN NEB SCH ×4 (02:08→20:35)
[2023-06-14 03:41] VITALS: BP 127/74; TEMP 97.4; O2SAT 95
[2023-06-14] MEDS: HEPARIN SOD (PORCINE) 5000UNITS/ML 1ML VIAL/SYRINGE SC SCH ×3 (05:19→22:03)
[2023-06-14 06:49] LABS: HEMATOCRIT 35.3 % (36.0-47.0); HEMOGLOBIN 11.3 g/dl (12.0-15.5); MEAN CORPUSCULAR HEMOGLOBIN 30.3 pg (27.0-33.0); MEAN CORPUSCULAR VOLUME 94.6 fl (80.0-96.0); PLATELET COUNT, AUTOMATED 215 10^3/uL (150-450); RED BLOOD COUNT 3.73 10^6/uL (4.00-5.40); WHITE BLOOD COUNT 13.2 10^3/uL (4.0-10.0)
[2023-06-14 07:01] LABS: BLOOD UREA NITROGEN 25 MG/DL (9-23); CARBON DIOXIDE LEVEL 38 MMOL/L (20-31); CHLORIDE LEVEL 96 MMOL/L (98-107); CREATININE FOR GFR 0.79 MG/DL (0.55-1.30); GLOMERULAR FILTRATION RATE > 60.0 (>39); GLUCOSE, FASTING 166 MG/DL (74-106); POTASSIUM SERUM 3.3 MMOL/L (3.5-5.1); SODIUM LEVEL 139 MMOL/L (136-145)
[2023-06-14 07:53] VITALS: BP 128/80; TEMP 96.6; O2SAT 93
[2023-06-14] MEDS ORDERED: POTASSIUM CHLORIDE 10MEQ SR TABLET PO ONE (08:00)
[2023-06-14] MEDS: TIOTROPIUM INHALER/CAPSULE (SPIRIVA) INH SCH (08:57)
[2023-06-14] MEDS: ADVAIR HFA 115/21MCG INHALER INH SCH ×2 (08:58→20:35)
[2023-06-14] MEDS ORDERED: predniSONE 10MG TAB PO SCH (09:00)
[2023-06-14] MEDS: OLANZapine 5 MG TAB PO SCH ×2 (09:07→22:03)
[2023-06-14] MEDS: LACTOBACILLUS ACIDOPHILUS CAP (BACID) PO SCH ×2 (09:08→22:03)
[2023-06-14] MEDS: MAGNESIUM OXIDE 400MG TAB (MAG-OX) PO SCH (09:08)
[2023-06-14] MEDS: FUROSEMIDE 20MG/2ML VIAL IV SCH ×2 (09:08→16:21)
[2023-06-14] MEDS: OYSTER SHELL CALCIUM 500 MG TAB PO SCH (09:08)
[2023-06-14] MEDS: LEVEMIR (INSULIN DETEMIR) 1 UNITS/0.01ML SC SCH ×2 (09:09→22:05)
[2023-06-14] MEDS: PANTOPRAZOLE 40MG TAB (PROTONIX) PO SCH (09:09)
[2023-06-14] MEDS: GABAPENTIN 400MG CAP PO SCH ×3 (09:09→22:03)
[2023-06-14] MEDS: INSULIN LISPRO (NovoLOG) PER UNIT SC SCH ×7 (09:10→22:04)
[2023-06-14] MEDS: CEFDINIR 300 MG CAP (OMNICEF) PO SCH ×2 (09:13→22:03)
[2023-06-14] MEDS: oxyCODONE 5MG TAB PO PRN (10:49)
[2023-06-14 15:36] VITALS: BP 137/70; TEMP 96.6; O2SAT 95
[2023-06-14 20:09] VITALS: BP 129/60; TEMP 98.3; O2SAT 96
[2023-06-14] MEDS: ATORVASTATIN 20 MG TAB PO SCH (22:03)
[2023-06-14] MEDS: LATANOPROST 0.005% OPHTH SOLN 2.5 ML OU SCH (22:05)
[2023-06-15] MEDS: ALBUTEROL SULFATE 2.5MG/0.5ML INH NEB SOLN NEB SCH ×2 (02:20→07:40)
[2023-06-15 03:45] VITALS: BP 142/71; TEMP 97.6; O2SAT 94
[2023-06-15] MEDS: HEPARIN SOD (PORCINE) 5000UNITS/ML 1ML VIAL/SYRINGE SC SCH (06:38)
[2023-06-15 07:20] LABS: HEMATOCRIT 36.1 % (36.0-47.0); HEMOGLOBIN 11.2 g/dl (12.0-15.5); MEAN CORPUSCULAR HEMOGLOBIN 29.7 pg (27.0-33.0); MEAN CORPUSCULAR VOLUME 95.8 fl (80.0-96.0); PLATELET COUNT, AUTOMATED 200 10^3/uL (150-450); RED BLOOD COUNT 3.77 10^6/uL (4.00-5.40); WHITE BLOOD COUNT 15.2 10^3/uL (4.0-10.0)
[2023-06-15] MEDS ORDERED: INSULIN LISPRO (NovoLOG) PER UNIT SC SCH (07:30)
[2023-06-15] MEDS: TIOTROPIUM INHALER/CAPSULE (SPIRIVA) INH SCH (07:38)
[2023-06-15] MEDS: ADVAIR HFA 115/21MCG INHALER INH SCH (07:39)
[2023-06-15 07:43] LABS: BLOOD UREA NITROGEN 29 MG/DL (9-23); CALCIUM LEVEL 8.8 MG/DL (8.3-10.6); CARBON DIOXIDE LEVEL 36 MMOL/L (20-31); CHLORIDE LEVEL 100 MMOL/L (98-107); CREATININE FOR GFR 0.81 MG/DL (0.55-1.30); GLOMERULAR FILTRATION RATE > 60.0 (>39); GLUCOSE, FASTING 147 MG/DL (74-106); POTASSIUM SERUM 3.8 MMOL/L (3.5-5.1); SODIUM LEVEL 140 MMOL/L (136-145)
[2023-06-15 08:00] VITALS: BP 146/70; TEMP 97.5; O2SAT 97
[2023-06-15] MEDS: INSULIN LISPRO (NovoLOG) PER UNIT SC SCH ×4 (08:56→12:07)
[2023-06-15] MEDS: CEFDINIR 300 MG CAP (OMNICEF) PO SCH (08:57)
[2023-06-15 08:58] VITALS: BP 146/70
[2023-06-15] MEDS: GABAPENTIN 400MG CAP PO SCH (08:58)
[2023-06-15] MEDS: LACTOBACILLUS ACIDOPHILUS CAP (BACID) PO SCH (08:58)
[2023-06-15] MEDS: MAGNESIUM OXIDE 400MG TAB (MAG-OX) PO SCH (08:58)
[2023-06-15] MEDS: OYSTER SHELL CALCIUM 500 MG TAB PO SCH (08:58)
[2023-06-15] MEDS: PANTOPRAZOLE 40MG TAB (PROTONIX) PO SCH (08:58)
[2023-06-15] MEDS: OLANZapine 5 MG TAB PO SCH (08:58)
[2023-06-15] MEDS ORDERED: LEVEMIR (INSULIN DETEMIR) 1 UNITS/0.01ML SC SCH (09:00)
[2023-06-15] MEDS ORDERED: TORSEMIDE 20 MG TAB PO SCH (09:00)
[2023-06-15] MEDS ORDERED: predniSONE 10MG TAB PO SCH (09:00)
[2023-06-15] MEDS: oxyCODONE 5MG TAB PO PRN (11:04)
[2023-06-15] MEDS ORDERED: METF500T13 PO (11:25)
[2023-06-15] MEDS ORDERED: OXYC10TA3 PO (11:25)
[2023-06-15] MEDS ORDERED: PRED10TA2 PO (11:25)
[2023-06-15] MEDS ORDERED: TORS20TA2 PO (11:47)
== END 2023-06-15 14:07 | disposition home health service (06) | DRG 189 ==
LOC: M ED 01:43 → EDBD 01:43 → M ED INP 04:54 → M PCU 17:08
PROVIDERS: ADMIT Internal Medicine; ATTEND Internal Medicine Nephrology
DX: J96.22 Acute and chronic respiratory failure with hypercapnia (principal); G93.41 Metabolic encephalopathy; R53.2 Functional quadriplegia; I50.33 Acute on chronic diastolic (congestive) heart failure; F11.20 Opioid dependence, uncomplicated; J44.1 Chronic obstructive pulmonary disease with (acute) exacerbation; J45.901 Unspecified asthma with (acute) exacerbation; Z68.42 Body mass index [BMI] 45.0-49.9, adult; I13.0 Hypertensive heart and chronic kidney disease with heart failure and stage 1 through stage 4 chronic kidney disease, or unspecified chronic kidney disease; E66.2 Morbid (severe) obesity with alveolar hypoventilation; M46.25 Osteomyelitis of vertebra, thoracolumbar region; N17.9 Acute kidney failure, unspecified; J96.21 Acute and chronic respiratory failure with hypoxia; G43.909 Migraine, unspecified, not intractable, without status migrainosus; N18.30 Chronic kidney disease, stage 3 unspecified; K44.9 Diaphragmatic hernia without obstruction or gangrene; E78.00 Pure hypercholesterolemia, unspecified; E11.22 Type 2 diabetes mellitus with diabetic chronic kidney disease; I27.29 Other secondary pulmonary hypertension; F32.A Depression, unspecified; F41.9 Anxiety disorder, unspecified; I50.813 Acute on chronic right heart failure; G25.3 Myoclonus; K21.9 Gastro-esophageal reflux disease without esophagitis; N32.81 Overactive bladder; E11.65 Type 2 diabetes mellitus with hyperglycemia; G25.81 Restless legs syndrome; D50.9 Iron deficiency anemia, unspecified; E78.5 Hyperlipidemia, unspecified; G89.29 Other chronic pain; R32 Unspecified urinary incontinence; E55.9 Vitamin D deficiency, unspecified; M54.9 Dorsalgia, unspecified; Z99.3 Dependence on wheelchair; Z85.118 Personal history of other malignant neoplasm of bronchus and lung; Z90.2 Acquired absence of lung [part of]; Z90.49 Acquired absence of other specified parts of digestive tract; Z79.899 Other long term (current) drug therapy; Z79.52 Long term (current) use of systemic steroids; Z88.8 Allergy status to other drugs, medicaments and biological substances

== ENCOUNTER 2023-06-22 10:17 | Inpatient (IN) | payer MEDICARE, BC, OTHER ==
[~2023-06-22] VITALS: Ht 154.9 cm; Wt 127.8 kg
[~2023-06-22 10:17] MED LIST changes: +MAGN400T35 PO; +METF500T13 PO; +OYST1TAB PO; +SPIR50TA4 PO; +ZINC1CAP2 PO
[2023-06-22 11:35] LABS: ABG BASE EXCESS 9.2 (-2.0-2.0); ABG O2 SATURATION 91.2 % (95.0-99.0); ABG PARTIAL PRESSURE O2 62.2 mmHg (75.0-100.0); ABG STANDARD HCO3 32.9 MMOL/L. (22.0-26.0); ABG TOTAL CO2 40.3 MMOL/L (23.0-31.0); ABG pH (ARTERIAL) 7.309 UNITS (7.350-7.450)
[2023-06-22 11:38] LABS: ABG PARTIAL PRESSURE CO2 77.3 mmHg (35.0-45.0)
[2023-06-22] MEDS ORDERED: dexAMETHasone 20MG/5ML VIAL IV ONE (12:05)
[2023-06-22 12:10] LABS: HEMATOCRIT 33.9 % (36.0-47.0); HEMOGLOBIN 10.4 g/dl (12.0-15.5); MEAN CORPUSCULAR HEMOGLOBIN 30.5 pg (27.0-33.0); MEAN CORPUSCULAR HGB CONC 30.7 g/dl (32.0-36.5); MEAN CORPUSCULAR VOLUME 99.4 fl (80.0-96.0); PLATELET COUNT, AUTOMATED 206 10^3/uL (150-450); RED BLOOD COUNT 3.41 10^6/uL (4.00-5.40); WHITE BLOOD COUNT 15.2 10^3/uL (4.0-10.0)
[2023-06-22] MEDS: IPRATROPIUM 0.5MG/ALBUTEROL 2.5MG INH SOL UD 3ML (DUONEB) NEB SCH ×3 (12:20→19:54)
[2023-06-22 12:42] LABS: ALBUMIN 3.2 G/DL (3.2-5.2); ALKALINE PHOSPHATASE 88 U/L (46-116); ALT/SGPT 32 U/L (7.0-40); AST/SGOT 18 U/L (<34); BILIRUBIN,DIRECT < 0.1 MG/DL (<0.4); BILIRUBIN,TOTAL 0.2 MG/DL (0.3-1.2); BLOOD UREA NITROGEN 24 MG/DL (9-23); CALCIUM LEVEL 8.9 MG/DL (8.3-10.6); CARBON DIOXIDE LEVEL 36 MMOL/L (20-31); CHLORIDE LEVEL 98 MMOL/L (98-107); CREATININE FOR GFR 0.86 MG/DL (0.55-1.30); GLOMERULAR FILTRATION RATE > 60.0 (>39); GLUCOSE, FASTING 140 MG/DL (74-106); POTASSIUM SERUM 4.2 MMOL/L (3.5-5.1); SODIUM LEVEL 135 MMOL/L (136-145); TOTAL PROTEIN 6.5 G/DL (5.7-8.2)
[2023-06-22 12:43] LABS: ATYPICAL LYMPH 5 % (0-5); BASOPHILS 1 % (0-1); EOSINOPHILS 3 % (0-3); LYMPHOCYTES 9 % (16-44); MONOCYTES 9 % (0-5); NEUTROPHILS 70 % (28-66); PLATELET ESTIMATE NORMAL (NORMAL)
[2023-06-22 12:44] LABS: POLYCHROMASIA 1+
[2023-06-22 14:09] LABS: ABG BASE EXCESS 8.1 (-2.0-2.0); ABG HCO3 36.8 MMOL/L (22.0-26.0); ABG O2 SATURATION 91.6 % (95.0-99.0); ABG STANDARD HCO3 31.8 MMOL/L. (22.0-26.0); ABG TOTAL CO2 39.1 MMOL/L (23.0-31.0); ABG pH (ARTERIAL) 7.302 UNITS (7.350-7.450)
[2023-06-22 14:18] LABS: ABG PARTIAL PRESSURE CO2 76.1 mmHg (35.0-45.0)
[2023-06-22] MEDS ORDERED: MED REC IN PROGRESS XX SCH (15:15)
[2023-06-22 15:39] LABS: PROCALCITONIN 0.28 ng/ml
[2023-06-22] MEDS ORDERED: METF-839 PO (15:55)
[2023-06-22] MEDS ORDERED: PERC10TA26 PO (15:59)
[2023-06-22] MEDS ORDERED: TORS20TA2 PO (16:02)
[2023-06-22] MEDS ORDERED: HOME MED LIST COMPLETE! XX SCH (16:05)
[2023-06-22] MEDS ORDERED: ALBUTEROL SULFATE 2.5MG/0.5ML INH NEB SOLN INH PRN (17:00)
[2023-06-22] MEDS ORDERED: ISOVUE-370 76% 100ML VIAL As Ordered ONE (17:07)
[2023-06-22 18:40] VITALS: BP 127/63; TEMP 97.6; O2SAT 90
[2023-06-22 19:35] VITALS: BP 132/67; TEMP 96.9; O2SAT 90
[2023-06-22] MEDS: ADVAIR HFA 115/21MCG INHALER INH SCH (19:54)
[2023-06-22] MEDS ORDERED: ENOXAPARIN 60MG/0.6ML SYRINGE (J1650 PER 10MG) SC SCH (21:00)
[2023-06-22] MEDS: FUROSEMIDE 100MG/10ML VIAL IV SCH (21:48)
[2023-06-22] MEDS ORDERED: GLUCOSE 4GM CHEW TABLET PO PRN (21:50)
[2023-06-22] MEDS ORDERED: GLUCAGON INJ 1MG VIAL SC PRN (21:50)
[2023-06-22] MEDS ORDERED: DEXTROSE 50% 50ML SYRINGE IV PRN (21:50)
[2023-06-22] MEDS: ATORVASTATIN 20 MG TAB PO SCH (21:52)
[2023-06-22] MEDS: predniSONE 20 MG TAB PO SCH (21:52)
[2023-06-22] MEDS: GABAPENTIN 400MG CAP PO SCH (21:52)
[2023-06-22] MEDS: DOCUSATE SODIUM 100MG CAPSULE PO SCH (21:52)
[2023-06-22] MEDS: LATANOPROST 0.005% OPHTH SOLN 2.5 ML OU SCH (21:52)
[2023-06-22 22:56] LABS: ABG BASE EXCESS 9.4 (-2.0-2.0); ABG O2 SATURATION 83.1 % (95.0-99.0); ABG PARTIAL PRESSURE CO2 66.9 mmHg (35.0-45.0); ABG STANDARD HCO3 32.8 MMOL/L. (22.0-26.0); ABG TOTAL CO2 39.1 MMOL/L (23.0-31.0); ABG pH (ARTERIAL) 7.361 UNITS (7.350-7.450)
[2023-06-22 22:57] LABS: ABG PARTIAL PRESSURE O2 44.3 mmHg (75.0-100.0)
[2023-06-23] VITALS (8 sets, daily range): BP systolic 84–135; BP diastolic 54–85; TEMP 96.7–98.9; O2SAT 91–97
[2023-06-23] MEDS: IPRATROPIUM 0.5MG/ALBUTEROL 2.5MG INH SOL UD 3ML (DUONEB) NEB SCH ×4 (01:14→19:24)
[2023-06-23 04:44] LABS: HEMATOCRIT 34.1 % (36.0-47.0); HEMOGLOBIN 10.5 g/dl (12.0-15.5); MEAN CORPUSCULAR HEMOGLOBIN 29.7 pg (27.0-33.0); MEAN CORPUSCULAR HGB CONC 30.8 g/dl (32.0-36.5); MEAN CORPUSCULAR VOLUME 96.6 fl (80.0-96.0); PLATELET COUNT, AUTOMATED 201 10^3/uL (150-450); RED BLOOD COUNT 3.53 10^6/uL (4.00-5.40); WHITE BLOOD COUNT 15.1 10^3/uL (4.0-10.0)
[2023-06-23 05:08] LABS: BLOOD UREA NITROGEN 24 MG/DL (9-23); CALCIUM LEVEL 8.4 MG/DL (8.3-10.6); CARBON DIOXIDE LEVEL 37 MMOL/L (20-31); CHLORIDE LEVEL 97 MMOL/L (98-107); GLOMERULAR FILTRATION RATE > 60.0 (>39); GLUCOSE, FASTING 266 MG/DL (74-106); MAGNESIUM LEVEL 2.4 MG/DL (1.8-2.4); PHOSPHORUS LEVEL 3.9 MG/DL (2.4-5.1); POTASSIUM SERUM 4.7 MMOL/L (3.5-5.1); SODIUM LEVEL 135 MMOL/L (136-145)
[2023-06-23] MEDS: INSULIN LISPRO (NovoLOG) PER UNIT SC SCH ×5 (06:00→21:09)
[2023-06-23] MEDS: FUROSEMIDE 100MG/10ML VIAL IV SCH (06:00)
[2023-06-23] MEDS: ADVAIR HFA 115/21MCG INHALER INH SCH ×2 (07:46→19:24)
[2023-06-23] MEDS: TORSEMIDE (DEMADEX) 50 MG PER 1/2 TAB PO SCH ×2 (09:00→18:11)
[2023-06-23] MEDS: OLANZapine 5 MG TAB PO SCH ×2 (10:04→21:10)
[2023-06-23] MEDS: OYSTER SHELL CALCIUM 500 MG TAB PO SCH (10:04)
[2023-06-23] MEDS: ENOXAPARIN 120MG/0.8ML SYRINGE SC SCH ×2 (10:04→21:09)
[2023-06-23] MEDS: oxyBUTYnin *DITROPAN XL* 5 MG TABCR PO SCH (10:05)
[2023-06-23] MEDS: GABAPENTIN 400MG CAP PO SCH ×3 (10:05→21:09)
[2023-06-23] MEDS: PANTOPRAZOLE 40MG TAB (PROTONIX) PO SCH (10:05)
[2023-06-23] MEDS: DOCUSATE SODIUM 100MG CAPSULE PO SCH ×2 (10:06→21:10)
[2023-06-23] MEDS: SPIRONOLACTONE 50 MG TAB PO SCH (10:06)
[2023-06-23] MEDS: predniSONE 20 MG TAB PO SCH (10:06)
[2023-06-23 12:12] LABS: ABG BASE EXCESS 10.4 (-2.0-2.0); ABG HCO3 37.6 MMOL/L (22.0-26.0); ABG O2 SATURATION 98.5 % (95.0-99.0); ABG PARTIAL PRESSURE O2 117.6 mmHg (75.0-100.0); ABG STANDARD HCO3 34.2 MMOL/L. (22.0-26.0); ABG TOTAL CO2 39.6 MMOL/L (23.0-31.0); ABG pH (ARTERIAL) 7.377 UNITS (7.350-7.450)
[2023-06-23 12:13] LABS: ABG PARTIAL PRESSURE CO2 65.5 mmHg (35.0-45.0)
[2023-06-23] MEDS ORDERED: oxyCODONE 5MG TAB PO ONE (18:10)
[2023-06-23] MEDS ORDERED: LEVEMIR (INSULIN DETEMIR) 1 UNITS/0.01ML SC SCH (21:00)
[2023-06-23] MEDS: LATANOPROST 0.005% OPHTH SOLN 2.5 ML OU SCH (21:10)
[2023-06-23] MEDS: ATORVASTATIN 20 MG TAB PO SCH (21:10)
[2023-06-24] MEDS: IPRATROPIUM 0.5MG/ALBUTEROL 2.5MG INH SOL UD 3ML (DUONEB) NEB SCH ×4 (01:03→19:25)
[2023-06-24 05:08] VITALS: BP 136/65; TEMP 98.4; O2SAT 97
[2023-06-24 06:14] LABS: HEMATOCRIT 31.3 % (36.0-47.0); HEMOGLOBIN 9.9 g/dl (12.0-15.5); MEAN CORPUSCULAR HEMOGLOBIN 30.2 pg (27.0-33.0); MEAN CORPUSCULAR HGB CONC 31.6 g/dl (32.0-36.5); MEAN CORPUSCULAR VOLUME 95.4 fl (80.0-96.0); PLATELET COUNT, AUTOMATED 199 10^3/uL (150-450); RED BLOOD COUNT 3.28 10^6/uL (4.00-5.40); WHITE BLOOD COUNT 18.9 10^3/uL (4.0-10.0)
[2023-06-24 06:47] LABS: BLOOD UREA NITROGEN 33 MG/DL (9-23); CALCIUM LEVEL 9.1 MG/DL (8.3-10.6); CARBON DIOXIDE LEVEL > 40.0 MMOL/L (20-31); CHLORIDE LEVEL 95 MMOL/L (98-107); CREATININE FOR GFR 0.94 MG/DL (0.55-1.30); GLOMERULAR FILTRATION RATE > 60.0 (>39); GLUCOSE, FASTING 316 MG/DL (74-106); MAGNESIUM LEVEL 2.2 MG/DL (1.8-2.4); PHOSPHORUS LEVEL 4.1 MG/DL (2.4-5.1); POTASSIUM SERUM 4.4 MMOL/L (3.5-5.1); SODIUM LEVEL 138 MMOL/L (136-145)
[2023-06-24 07:40] VITALS: BP 137/79; TEMP 96.8; O2SAT 97
[2023-06-24] MEDS: ADVAIR HFA 115/21MCG INHALER INH SCH ×2 (07:53→19:25)
[2023-06-24 08:21] LABS: PROCALCITONIN 0.12 ng/ml
[2023-06-24] MEDS: oxyBUTYnin *DITROPAN XL* 5 MG TABCR PO SCH (09:02)
[2023-06-24] MEDS: OYSTER SHELL CALCIUM 500 MG TAB PO SCH (09:02)
[2023-06-24] MEDS: OLANZapine 5 MG TAB PO SCH ×2 (09:02→20:07)
[2023-06-24] MEDS: PANTOPRAZOLE 40MG TAB (PROTONIX) PO SCH (09:03)
[2023-06-24] MEDS: predniSONE 20 MG TAB PO SCH (09:03)
[2023-06-24] MEDS: DOCUSATE SODIUM 100MG CAPSULE PO SCH ×2 (09:03→20:07)
[2023-06-24] MEDS: SPIRONOLACTONE 50 MG TAB PO SCH (09:04)
[2023-06-24] MEDS: GABAPENTIN 400MG CAP PO SCH ×3 (09:04→20:07)
[2023-06-24] MEDS: ENOXAPARIN 120MG/0.8ML SYRINGE SC SCH ×2 (09:04→20:11)
[2023-06-24] MEDS: INSULIN LISPRO (NovoLOG) PER UNIT SC SCH ×4 (09:23→20:07)
[2023-06-24] MEDS ORDERED: HumuLIN R (REGULAR) INSULIN (NovoLIN R) **100U/ML** PER UNIT IV STA (11:03)
[2023-06-24 12:37] VITALS: BP 133/67; TEMP 97.2; O2SAT 98
[2023-06-24 16:15] VITALS: BP 129/61; TEMP 96.8; O2SAT 92
[2023-06-24] MEDS: NYSTATIN 100,000 UNITS/GM TOPICAL PWD 15GM TOP SCH ×2 (17:05→20:08)
[2023-06-24] MEDS: ATORVASTATIN 20 MG TAB PO SCH (20:07)
[2023-06-24] MEDS: LATANOPROST 0.005% OPHTH SOLN 2.5 ML OU SCH (20:08)
[2023-06-24] MEDS: LEVEMIR (INSULIN DETEMIR) 1 UNITS/0.01ML SC SCH (20:08)
[2023-06-24 20:17] VITALS: BP 130/58; TEMP 97; O2SAT 94
[2023-06-25] VITALS (7 sets, daily range): BP systolic 118–141; BP diastolic 58–73; TEMP 97.2–97.9; O2SAT 92–97
[2023-06-25] MEDS: IPRATROPIUM 0.5MG/ALBUTEROL 2.5MG INH SOL UD 3ML (DUONEB) NEB SCH ×4 (00:48→20:25)
[2023-06-25 06:11] LABS: HEMATOCRIT 31.8 % (36.0-47.0); HEMOGLOBIN 9.7 g/dl (12.0-15.5); MEAN CORPUSCULAR HEMOGLOBIN 30.2 pg (27.0-33.0); MEAN CORPUSCULAR HGB CONC 30.5 g/dl (32.0-36.5); MEAN CORPUSCULAR VOLUME 99.1 fl (80.0-96.0); PLATELET COUNT, AUTOMATED 206 10^3/uL (150-450); RED BLOOD COUNT 3.21 10^6/uL (4.00-5.40); WHITE BLOOD COUNT 17.4 10^3/uL (4.0-10.0)
[2023-06-25 06:30] LABS: BLOOD UREA NITROGEN 20 MG/DL (9-23); CALCIUM LEVEL 9.6 MG/DL (8.3-10.6); CARBON DIOXIDE LEVEL 37 MMOL/L (20-31); CHLORIDE LEVEL 100 MMOL/L (98-107); CREATININE FOR GFR 0.76 MG/DL (0.55-1.30); GLOMERULAR FILTRATION RATE > 60.0 (>39); GLUCOSE, FASTING 194 MG/DL (74-106); PHOSPHORUS LEVEL 3.6 MG/DL (2.4-5.1); SODIUM LEVEL 140 MMOL/L (136-145)
[2023-06-25] MEDS: ADVAIR HFA 115/21MCG INHALER INH SCH ×2 (07:57→20:25)
[2023-06-25] MEDS: DOCUSATE SODIUM 100MG CAPSULE PO SCH ×2 (08:55→21:00)
[2023-06-25] MEDS: GABAPENTIN 400MG CAP PO SCH ×3 (08:56→21:29)
[2023-06-25] MEDS: PANTOPRAZOLE 40MG TAB (PROTONIX) PO SCH (08:56)
[2023-06-25] MEDS: predniSONE 20 MG TAB PO SCH (08:56)
[2023-06-25] MEDS: OLANZapine 5 MG TAB PO SCH ×2 (08:56→21:29)
[2023-06-25] MEDS: oxyBUTYnin *DITROPAN XL* 5 MG TABCR PO SCH (08:56)
[2023-06-25] MEDS: SPIRONOLACTONE 50 MG TAB PO SCH (08:56)
[2023-06-25] MEDS: OYSTER SHELL CALCIUM 500 MG TAB PO SCH (08:57)
[2023-06-25] MEDS: INSULIN LISPRO (NovoLOG) PER UNIT SC SCH ×4 (08:57→21:28)
[2023-06-25] MEDS: ENOXAPARIN 120MG/0.8ML SYRINGE SC SCH ×2 (08:58→21:28)
[2023-06-25] MEDS: NYSTATIN 100,000 UNITS/GM TOPICAL PWD 15GM TOP SCH ×2 (08:58→21:27)
[2023-06-25] MEDS ORDERED: PERCOCET 5MG/325MG TAB PO PRN ×2 (13:05)
[2023-06-25] MEDS: PERCOCET 5MG/325MG TAB PO PRN (13:28)
[2023-06-25] MEDS: LATANOPROST 0.005% OPHTH SOLN 2.5 ML OU SCH (21:27)
[2023-06-25] MEDS: LEVEMIR (INSULIN DETEMIR) 1 UNITS/0.01ML SC SCH (21:28)
[2023-06-25] MEDS: ATORVASTATIN 20 MG TAB PO SCH (21:29)
[2023-06-26] MEDS: IPRATROPIUM 0.5MG/ALBUTEROL 2.5MG INH SOL UD 3ML (DUONEB) NEB SCH ×4 (02:42→19:33)
[2023-06-26 03:11] VITALS: BP 138/62; TEMP 98; O2SAT 95
[2023-06-26 05:00] LABS: HEMATOCRIT 31.2 % (36.0-47.0); HEMOGLOBIN 9.7 g/dl (12.0-15.5); MEAN CORPUSCULAR HEMOGLOBIN 30.2 pg (27.0-33.0); MEAN CORPUSCULAR HGB CONC 31.1 g/dl (32.0-36.5); MEAN CORPUSCULAR VOLUME 97.2 fl (80.0-96.0); PLATELET COUNT, AUTOMATED 187 10^3/uL (150-450); RED BLOOD COUNT 3.21 10^6/uL (4.00-5.40); WHITE BLOOD COUNT 16.7 10^3/uL (4.0-10.0)
[2023-06-26 05:24] LABS: BLOOD UREA NITROGEN 15 MG/DL (9-23); CALCIUM LEVEL 9.4 MG/DL (8.3-10.6); CARBON DIOXIDE LEVEL 35 MMOL/L (20-31); CHLORIDE LEVEL 102 MMOL/L (98-107); GLOMERULAR FILTRATION RATE > 60.0 (>39); GLUCOSE, FASTING 168 MG/DL (74-106); POTASSIUM SERUM 4.1 MMOL/L (3.5-5.1); SODIUM LEVEL 138 MMOL/L (136-145)
[2023-06-26] MEDS: ADVAIR HFA 115/21MCG INHALER INH SCH ×2 (07:45→19:33)
[2023-06-26] MEDS: INSULIN LISPRO (NovoLOG) PER UNIT SC SCH ×4 (08:03→20:48)
[2023-06-26] MEDS: oxyBUTYnin *DITROPAN XL* 5 MG TABCR PO SCH (08:06)
[2023-06-26] MEDS: DOCUSATE SODIUM 100MG CAPSULE PO SCH ×2 (08:06→21:15)
[2023-06-26] MEDS: predniSONE 20 MG TAB PO SCH (08:07)
[2023-06-26] MEDS: PANTOPRAZOLE 40MG TAB (PROTONIX) PO SCH (08:07)
[2023-06-26] MEDS: SPIRONOLACTONE 50 MG TAB PO SCH (08:07)
[2023-06-26] MEDS: GABAPENTIN 400MG CAP PO SCH ×3 (08:12→21:15)
[2023-06-26] MEDS: NYSTATIN 100,000 UNITS/GM TOPICAL PWD 15GM TOP SCH ×2 (08:13→21:18)
[2023-06-26] MEDS: ENOXAPARIN 120MG/0.8ML SYRINGE SC SCH (08:13)
[2023-06-26] MEDS: OLANZapine 5 MG TAB PO SCH ×2 (08:13→21:15)
[2023-06-26] MEDS: OYSTER SHELL CALCIUM 500 MG TAB PO SCH (08:13)
[2023-06-26 08:35] VITALS: BP 107/72; TEMP 97.6; O2SAT 97
[2023-06-26] MEDS: TORSEMIDE (DEMADEX) 50 MG PER 1/2 TAB PO SCH ×2 (10:14→16:11)
[2023-06-26 10:15] VITALS: BP 147/69
[2023-06-26 12:03] VITALS: BP 135/86; TEMP 97.8; O2SAT 94
[2023-06-26 17:48] VITALS: BP 140/91; TEMP 97.7; O2SAT 98
[2023-06-26] MEDS: PERCOCET 5MG/325MG TAB PO PRN (21:14)
[2023-06-26] MEDS: LEVEMIR (INSULIN DETEMIR) 1 UNITS/0.01ML SC SCH (21:14)
[2023-06-26 21:15] VITALS: BP 146/79; TEMP 97.5; O2SAT 97
[2023-06-26] MEDS: APIXABAN 5 MG TAB (ELIQUIS) PO SCH (21:15)
[2023-06-26] MEDS: ATORVASTATIN 20 MG TAB PO SCH (21:15)
[2023-06-26] MEDS: LATANOPROST 0.005% OPHTH SOLN 2.5 ML OU SCH (21:17)
[2023-06-27] MEDS: IPRATROPIUM 0.5MG/ALBUTEROL 2.5MG INH SOL UD 3ML (DUONEB) NEB SCH ×2 (02:09→07:35)
[2023-06-27 05:43] VITALS: BP 141/74; TEMP 97.2; O2SAT 93
[2023-06-27] MEDS: ADVAIR HFA 115/21MCG INHALER INH SCH (07:35)
[2023-06-27] MEDS: INSULIN LISPRO (NovoLOG) PER UNIT SC SCH ×2 (08:22→12:24)
[2023-06-27] MEDS: TORSEMIDE (DEMADEX) 50 MG PER 1/2 TAB PO SCH (08:23)
[2023-06-27] MEDS: NYSTATIN 100,000 UNITS/GM TOPICAL PWD 15GM TOP SCH (08:23)
[2023-06-27 08:24] VITALS: BP 141/76
[2023-06-27] MEDS: PANTOPRAZOLE 40MG TAB (PROTONIX) PO SCH (08:24)
[2023-06-27] MEDS: DOCUSATE SODIUM 100MG CAPSULE PO SCH (08:24)
[2023-06-27] MEDS: GABAPENTIN 400MG CAP PO SCH (08:24)
[2023-06-27] MEDS: APIXABAN 5 MG TAB (ELIQUIS) PO SCH (08:24)
[2023-06-27] MEDS: predniSONE 20 MG TAB PO SCH (08:24)
[2023-06-27] MEDS: SPIRONOLACTONE 50 MG TAB PO SCH (08:24)
[2023-06-27] MEDS: OYSTER SHELL CALCIUM 500 MG TAB PO SCH (08:24)
[2023-06-27] MEDS: OLANZapine 5 MG TAB PO SCH (08:24)
[2023-06-27] MEDS: oxyBUTYnin *DITROPAN XL* 5 MG TABCR PO SCH (08:25)
[2023-06-27] MEDS ORDERED: MAGNESIUM CITRATE 300ML BTL PO ONE (08:55)
[2023-06-27] MEDS ORDERED: SENOKOT S TAB PO SCH (09:00)
[2023-06-27] MEDS ORDERED: ELIQ5TAB PO (11:41)
[2023-06-27] MEDS ORDERED: PRED10TA2 PO (11:41)
[2023-06-27 14:00] VITALS: BP 140/74; TEMP 97.7; O2SAT 95
[2023-06-30] MEDS ORDERED: APIXABAN 5 MG TAB (ELIQUIS) PO SCH (09:00)
== END 2023-06-27 14:55 | disposition home health service (06) | DRG 189 ==
LOC: M ED 10:17 → EDBD 10:17 → M ED INP 14:57 → ENRESERV 15:09 → M PCU 18:44 → M MSPAV 06-26 17:45
PROVIDERS: ADMIT Internal Medicine; ATTEND Student in an Organized Health Care Education/Training Program
DX: J96.22 Acute and chronic respiratory failure with hypercapnia (principal); G93.41 Metabolic encephalopathy; G82.50 Quadriplegia, unspecified; I26.99 Other pulmonary embolism without acute cor pulmonale; I50.32 Chronic diastolic (congestive) heart failure; I13.0 Hypertensive heart and chronic kidney disease with heart failure and stage 1 through stage 4 chronic kidney disease, or unspecified chronic kidney disease; E66.2 Morbid (severe) obesity with alveolar hypoventilation; M46.27 Osteomyelitis of vertebra, lumbosacral region; Z68.43 Body mass index [BMI] 50.0-59.9, adult; J44.1 Chronic obstructive pulmonary disease with (acute) exacerbation; J96.21 Acute and chronic respiratory failure with hypoxia; G43.909 Migraine, unspecified, not intractable, without status migrainosus; N18.30 Chronic kidney disease, stage 3 unspecified; K44.9 Diaphragmatic hernia without obstruction or gangrene; E78.00 Pure hypercholesterolemia, unspecified; I27.29 Other secondary pulmonary hypertension; K21.9 Gastro-esophageal reflux disease without esophagitis; I50.810 Right heart failure, unspecified; E11.22 Type 2 diabetes mellitus with diabetic chronic kidney disease; M54.9 Dorsalgia, unspecified; G89.29 Other chronic pain; G25.81 Restless legs syndrome; F32.A Depression, unspecified; H40.9 Unspecified glaucoma; F41.9 Anxiety disorder, unspecified; E55.9 Vitamin D deficiency, unspecified; R32 Unspecified urinary incontinence; Z90.2 Acquired absence of lung [part of]; Z85.118 Personal history of other malignant neoplasm of bronchus and lung; Z87.891 Personal history of nicotine dependence; Z90.49 Acquired absence of other specified parts of digestive tract; Z99.81 Dependence on supplemental oxygen; Z99.3 Dependence on wheelchair; Z79.891 Long term (current) use of opiate analgesic; Z79.52 Long term (current) use of systemic steroids; Z79.84 Long term (current) use of oral hypoglycemic drugs; Z79.2 Long term (current) use of antibiotics; Z88.8 Allergy status to other drugs, medicaments and biological substances; Z20.822 Contact with and (suspected) exposure to COVID-19; Z91.51 Personal history of suicidal behavior; D50.9 Iron deficiency anemia, unspecified

== ENCOUNTER 2023-07-08 12:07 | Inpatient (IN) | payer MEDICARE, BC, OTHER ==
[~2023-07-08] VITALS: Ht 154.9 cm; Wt 131.6 kg
[~2023-07-08 12:07] MED LIST changes: +ELIQ5TAB PO; +METF-839 PO
[2023-07-08 12:53] LABS: BASO % 0.2 % (0.0-1.0); EOS # 0.3 10^3/uL (0.0-0.5); EOS % 2.4 % (0.0-3.0); HEMATOCRIT 30.9 % (36.0-47.0); HEMOGLOBIN 9.4 g/dl (12.0-15.5); LYMPH # 1.1 10^3/uL (1.5-5.0); LYMPH % 7.6 % (24.0-44.0); MEAN CORPUSCULAR HEMOGLOBIN 30.6 pg (27.0-33.0); MEAN CORPUSCULAR HGB CONC 30.4 g/dl (32.0-36.5); MEAN CORPUSCULAR VOLUME 100.7 fl (80.0-96.0); MONO # 1.4 10^3/uL (0.0-0.8); MONO % 9.5 % (2.0-8.0); NEUTROPHILS # 10.9 10^3/uL (1.5-8.5); NEUTROPHILS % 76.3 % (36.0-66.0); PLATELET COUNT, AUTOMATED 238 10^3/uL (150-450); RED BLOOD COUNT 3.07 10^6/uL (4.00-5.40); WHITE BLOOD COUNT 14.2 10^3/uL (4.0-10.0)
[2023-07-08 13:06] LABS: INR 1.19; PROTHROMBIN TIME 14.7 SECONDS (12.5-14.5)
[2023-07-08 13:13] LABS: ABG BASE EXCESS 7.4 (-2.0-2.0); ABG HCO3 35.7 MMOL/L (22.0-26.0); ABG O2 SATURATION 93.6 % (95.0-99.0); ABG PARTIAL PRESSURE O2 71.1 mmHg (75.0-100.0); ABG STANDARD HCO3 31.2 MMOL/L. (22.0-26.0); ABG pH (ARTERIAL) 7.301 UNITS (7.350-7.450)
[2023-07-08 13:16] LABS: ABG PARTIAL PRESSURE CO2 74.1 mmHg (35.0-45.0)
[2023-07-08 13:19] LABS: ALKALINE PHOSPHATASE 78 U/L (46-116); ALT/SGPT 31 U/L (7.0-40); AST/SGOT 18 U/L (<34); BILIRUBIN,DIRECT < 0.1 MG/DL (<0.4); BILIRUBIN,TOTAL 0.2 MG/DL (0.3-1.2); BLOOD UREA NITROGEN 16 MG/DL (9-23); CALCIUM LEVEL 8.3 MG/DL (8.3-10.6); CARBON DIOXIDE LEVEL 34 MMOL/L (20-31); CHLORIDE LEVEL 99 MMOL/L (98-107); CK-MB VALUE MASS < 1.0 NG/ML (<3.6); CREATININE FOR GFR 0.82 MG/DL (0.55-1.30); GLOMERULAR FILTRATION RATE > 60.0 (>39); GLUCOSE, FASTING 168 MG/DL (74-106); POTASSIUM SERUM 4.3 MMOL/L (3.5-5.1); SODIUM LEVEL 138 MMOL/L (136-145); TOTAL PROTEIN 6.1 G/DL (5.7-8.2)
[2023-07-08 13:21] LABS: THYROID STIMULATING HORMONE 2.063 uIU/ML (0.55-4.78); THYROXINE (T4) 8.5 UG/DL (4.5-10.9)
[2023-07-08 13:31] LABS: PROCALCITONIN 0.21 ng/ml
[2023-07-08] MEDS ORDERED: MED REC IN PROGRESS XX SCH (13:35)
[2023-07-08 13:39] LABS: CPK CREATINE PHOSPHOKINASE 30 U/L (34-145); MB/CK RELATIVE INDEX 3.33 (< OR =4)
[2023-07-08] MEDS: FUROSEMIDE 100MG/10ML VIAL IV ONE (13:49)
[2023-07-08] MEDS ORDERED: PRED10TA2 PO (14:43)
[2023-07-08] MEDS ORDERED: ELIQ5TAB PO (14:43)
[2023-07-08 14:48] LABS: ABG HCO3 37.1 MMOL/L (22.0-26.0); ABG O2 SATURATION 89.9 % (95.0-99.0); ABG PARTIAL PRESSURE O2 77.1 mmHg (75.0-100.0); ABG STANDARD HCO3 32.6 MMOL/L. (22.0-26.0); ABG TOTAL CO2 39.3 MMOL/L (23.0-31.0); ABG pH (ARTERIAL) 7.325 UNITS (7.350-7.450)
[2023-07-08 14:51] LABS: ABG PARTIAL PRESSURE CO2 72.8 mmHg (35.0-45.0)
[2023-07-08] MEDS ORDERED: HOME MED LIST COMPLETE! XX SCH (14:55)
[2023-07-08 15:29] LABS: CK-MB VALUE MASS < 1.0 NG/ML (<3.6)
[2023-07-08 15:31] LABS: CPK CREATINE PHOSPHOKINASE 23 U/L (34-145); MB/CK RELATIVE INDEX 4.34 (< OR =4)
[2023-07-08] MEDS: GABAPENTIN 400MG CAP PO SCH (16:00)
[2023-07-08] MEDS ORDERED: ALBUTEROL SULFATE 2.5MG/0.5ML INH NEB SOLN NEB PRN (16:10)
[2023-07-08 16:51] VITALS: BP 137/70; TEMP 97; O2SAT 93
[2023-07-08] MEDS: SYMBICORT 160/4.5MCG INHALER 6GM INH SCH (19:29)
[2023-07-08 19:45] VITALS: BP 140/69; TEMP 96.6; O2SAT 94
[2023-07-08] MEDS: OLANZapine 5 MG TAB PO SCH (20:31)
[2023-07-08] MEDS: APIXABAN 5 MG TAB (ELIQUIS) PO SCH (20:31)
[2023-07-08] MEDS: FUROSEMIDE 40MG/4ML VIAL IV SCH (20:31)
[2023-07-08] MEDS: DOCUSATE SODIUM 100MG CAPSULE PO SCH (20:31)
[2023-07-08 23:53] VITALS: BP 135/74; TEMP 98.5; O2SAT 90
[2023-07-09 03:19] VITALS: BP 136/65; TEMP 98.1; O2SAT 91
[2023-07-09] MEDS: TIOTROPIUM INHALER/CAPSULE (SPIRIVA) INH SCH (07:04)
[2023-07-09 07:18] LABS: BASO % 0.4 % (0.0-1.0); EOS # 0.4 10^3/uL (0.0-0.5); EOS % 3.5 % (0.0-3.0); HEMATOCRIT 30.3 % (36.0-47.0); HEMOGLOBIN 9.2 g/dl (12.0-15.5); LYMPH # 1.7 10^3/uL (1.5-5.0); LYMPH % 16.4 % (24.0-44.0); MEAN CORPUSCULAR HEMOGLOBIN 30.1 pg (27.0-33.0); MEAN CORPUSCULAR HGB CONC 30.4 g/dl (32.0-36.5); MONO % 9.8 % (2.0-8.0); NEUTROPHILS # 6.8 10^3/uL (1.5-8.5); NEUTROPHILS % 66.8 % (36.0-66.0); PLATELET COUNT, AUTOMATED 228 10^3/uL (150-450); RED BLOOD COUNT 3.06 10^6/uL (4.00-5.40); WHITE BLOOD COUNT 10.1 10^3/uL (4.0-10.0)
[2023-07-09 07:39] LABS: BLOOD UREA NITROGEN 13 MG/DL (9-23); CALCIUM LEVEL 8.7 MG/DL (8.3-10.6); CARBON DIOXIDE LEVEL 40 MMOL/L (20-31); CHLORIDE LEVEL 98 MMOL/L (98-107); CREATININE FOR GFR 0.86 MG/DL (0.55-1.30); GLOMERULAR FILTRATION RATE > 60.0 (>39); GLUCOSE, FASTING 119 MG/DL (74-106); POTASSIUM SERUM 3.3 MMOL/L (3.5-5.1); SODIUM LEVEL 142 MMOL/L (136-145)
[2023-07-09 07:48] VITALS: BP 127/63; TEMP 98.1; O2SAT 96
[2023-07-09] MEDS: predniSONE 5 MG TAB PO SCH (08:32)
[2023-07-09] MEDS: SPIRONOLACTONE 50 MG TAB PO SCH (08:33)
[2023-07-09] MEDS: POTASSIUM CHLORIDE 10MEQ SR TABLET PO ONE (08:33)
[2023-07-09] MEDS: ATORVASTATIN 20 MG TAB PO SCH (08:33)
[2023-07-09] MEDS: PANTOPRAZOLE 40MG TAB (PROTONIX) PO SCH (08:33)
[2023-07-09] MEDS ORDERED: predniSONE 20 MG TAB PO SCH (09:00)
[2023-07-09 10:32] LABS: ABG BASE EXCESS 13.5 (-2.0-2.0); ABG HCO3 40.8 MMOL/L (22.0-26.0); ABG O2 SATURATION 94.8 % (95.0-99.0); ABG PARTIAL PRESSURE O2 75.3 mmHg (75.0-100.0); ABG STANDARD HCO3 37.2 MMOL/L. (22.0-26.0); ABG TOTAL CO2 42.9 MMOL/L (23.0-31.0); ABG pH (ARTERIAL) 7.393 UNITS (7.350-7.450)
[2023-07-09 10:34] LABS: ABG PARTIAL PRESSURE CO2 68.4 mmHg (35.0-45.0)
[2023-07-09 11:10] VITALS: BP 123/60; TEMP 96.7; O2SAT 92
[2023-07-09] MEDS: PERCOCET 5MG/325MG TAB PO PRN (14:23)
[2023-07-09 15:53] VITALS: BP 127/58; TEMP 96.6; O2SAT 95
[2023-07-09 20:22] VITALS: BP 140/65; TEMP 98.1; O2SAT 93
[2023-07-10 00:09] VITALS: BP 135/81; TEMP 96.9; O2SAT 94
[2023-07-10 03:11] VITALS: BP 138/65; TEMP 96.7; O2SAT 92
[2023-07-10 06:41] LABS: BASO % 0.4 % (0.0-1.0); EOS # 0.4 10^3/uL (0.0-0.5); EOS % 3.6 % (0.0-3.0); HEMATOCRIT 33.1 % (36.0-47.0); HEMOGLOBIN 10.1 g/dl (12.0-15.5); LYMPH # 1.8 10^3/uL (1.5-5.0); LYMPH % 18.2 % (24.0-44.0); MEAN CORPUSCULAR HEMOGLOBIN 30.1 pg (27.0-33.0); MEAN CORPUSCULAR HGB CONC 30.5 g/dl (32.0-36.5); MEAN CORPUSCULAR VOLUME 98.8 fl (80.0-96.0); MONO # 0.8 10^3/uL (0.0-0.8); MONO % 8.1 % (2.0-8.0); NEUTROPHILS # 6.6 10^3/uL (1.5-8.5); NEUTROPHILS % 67.6 % (36.0-66.0); PLATELET COUNT, AUTOMATED 229 10^3/uL (150-450); RED BLOOD COUNT 3.35 10^6/uL (4.00-5.40); WHITE BLOOD COUNT 9.7 10^3/uL (4.0-10.0)
[2023-07-10 07:03] LABS: BLOOD UREA NITROGEN 12 MG/DL (9-23); CALCIUM LEVEL 8.7 MG/DL (8.3-10.6); CARBON DIOXIDE LEVEL 38 MMOL/L (20-31); CHLORIDE LEVEL 97 MMOL/L (98-107); CREATININE FOR GFR 0.87 MG/DL (0.55-1.30); GLOMERULAR FILTRATION RATE > 60.0 (>39); GLUCOSE, FASTING 121 MG/DL (74-106); POTASSIUM SERUM 3.9 MMOL/L (3.5-5.1); SODIUM LEVEL 140 MMOL/L (136-145)
[2023-07-10 07:48] VITALS: BP 135/64; TEMP 96.4; O2SAT 93
[2023-07-10] MEDS ORDERED: CEFD300CAP PO ×3 (11:51→15:46)
[2023-07-10] MEDS ORDERED: FLUT1BLS8 INH (12:03)
== END 2023-07-10 15:37 | disposition home health service (06) | DRG 291 ==
LOC: M ED 12:07 → EDBEDREQSVC 13:42 → M ED INP 13:52 → M PCU 16:38
PROVIDERS: ADMIT Internal Medicine Nephrology; ATTEND Internal Medicine Nephrology
DX: I13.0 Hypertensive heart and chronic kidney disease with heart failure and stage 1 through stage 4 chronic kidney disease, or unspecified chronic kidney disease (principal); R53.2 Functional quadriplegia; I50.33 Acute on chronic diastolic (congestive) heart failure; J96.21 Acute and chronic respiratory failure with hypoxia; J96.22 Acute and chronic respiratory failure with hypercapnia; E66.2 Morbid (severe) obesity with alveolar hypoventilation; M46.27 Osteomyelitis of vertebra, lumbosacral region; Z68.43 Body mass index [BMI] 50.0-59.9, adult; J44.9 Chronic obstructive pulmonary disease, unspecified; E11.22 Type 2 diabetes mellitus with diabetic chronic kidney disease; G25.3 Myoclonus; E11.69 Type 2 diabetes mellitus with other specified complication; I50.812 Chronic right heart failure; E78.5 Hyperlipidemia, unspecified; N18.30 Chronic kidney disease, stage 3 unspecified; K21.9 Gastro-esophageal reflux disease without esophagitis; G25.81 Restless legs syndrome; F32.A Depression, unspecified; F41.9 Anxiety disorder, unspecified; D50.9 Iron deficiency anemia, unspecified; G43.909 Migraine, unspecified, not intractable, without status migrainosus; H40.9 Unspecified glaucoma; R32 Unspecified urinary incontinence; I27.81 Cor pulmonale (chronic); I27.23 Pulmonary hypertension due to lung diseases and hypoxia; Z99.3 Dependence on wheelchair; Z90.2 Acquired absence of lung [part of]; Z85.118 Personal history of other malignant neoplasm of bronchus and lung; Z99.81 Dependence on supplemental oxygen; Z79.01 Long term (current) use of anticoagulants; Z79.84 Long term (current) use of oral hypoglycemic drugs; Z79.891 Long term (current) use of opiate analgesic; Z79.52 Long term (current) use of systemic steroids; Z79.899 Other long term (current) drug therapy; Z88.8 Allergy status to other drugs, medicaments and biological substances; Z20.822 Contact with and (suspected) exposure to COVID-19; Z86.711 Personal history of pulmonary embolism

== ENCOUNTER 2023-07-12 11:58 | Inpatient (IN) | payer MEDICARE, BC, OTHER ==
[~2023-07-12] VITALS: Ht 154.9 cm; Wt 125.0 kg
[~2023-07-12 11:58] MED LIST changes: +CEFD300CAP PO
[2023-07-12 13:03] LABS: ABG BASE EXCESS 6.8 (-2.0-2.0); ABG HCO3 34.7 MMOL/L (22.0-26.0); ABG O2 SATURATION 98.6 % (95.0-99.0); ABG PARTIAL PRESSURE O2 141.9 mmHg (75.0-100.0); ABG STANDARD HCO3 30.7 MMOL/L. (22.0-26.0); ABG TOTAL CO2 36.8 MMOL/L (23.0-31.0); ABG pH (ARTERIAL) 7.312 UNITS (7.350-7.450)
[2023-07-12 13:05] LABS: ABG PARTIAL PRESSURE CO2 70.1 mmHg (35.0-45.0)
[2023-07-12 13:15] LABS: INR 1.37; PROTHROMBIN TIME 16.5 SECONDS (12.5-14.5)
[2023-07-12 13:30] LABS: BASO % 0.3 % (0.0-1.0); EOS # 0.4 10^3/uL (0.0-0.5); EOS % 3.2 % (0.0-3.0); HEMATOCRIT 28.9 % (36.0-47.0); HEMOGLOBIN 8.8 g/dl (12.0-15.5); LYMPH # 1.5 10^3/uL (1.5-5.0); LYMPH % 14.3 % (24.0-44.0); MEAN CORPUSCULAR HGB CONC 30.4 g/dl (32.0-36.5); MEAN CORPUSCULAR VOLUME 98.6 fl (80.0-96.0); MONO # 1.1 10^3/uL (0.0-0.8); MONO % 10.5 % (2.0-8.0); NEUTROPHILS # 7.5 10^3/uL (1.5-8.5); NEUTROPHILS % 69.3 % (36.0-66.0); PLATELET COUNT, AUTOMATED 245 10^3/uL (150-450); RED BLOOD COUNT 2.93 10^6/uL (4.00-5.40); WHITE BLOOD COUNT 10.8 10^3/uL (4.0-10.0)
[2023-07-12 13:43] LABS: CK-MB VALUE MASS < 1.0 NG/ML (<3.6)
[2023-07-12 13:44] LABS: CK-MB VALUE MASS < 1.0 NG/ML (<3.6)
[2023-07-12 13:46] LABS: CPK CREATINE PHOSPHOKINASE 103 U/L (34-145); CPK CREATINE PHOSPHOKINASE 105 U/L (34-145); MB/CK RELATIVE INDEX 0.95 (< OR =4); MB/CK RELATIVE INDEX 0.97 (< OR =4)
[2023-07-12 13:47] LABS: THYROXINE (T4) 10.6 UG/DL (4.5-10.9)
[2023-07-12 13:49] LABS: THYROID STIMULATING HORMONE 2.011 uIU/ML (0.55-4.78)
[2023-07-12 13:52] LABS: PROCALCITONIN 0.29 ng/ml
[2023-07-12 13:55] LABS: RSV AMPLIFICATION NEGATIVE (NEGATIVE)
[2023-07-12 14:00] LABS: ALKALINE PHOSPHATASE 74 U/L (46-116); ALT/SGPT 30 U/L (7.0-40); AST/SGOT 18 U/L (<34); BILIRUBIN,DIRECT < 0.1 MG/DL (<0.4); BILIRUBIN,TOTAL 0.3 MG/DL (0.3-1.2); BLOOD UREA NITROGEN 27 MG/DL (9-23); CALCIUM LEVEL 8.2 MG/DL (8.3-10.6); CARBON DIOXIDE LEVEL 36 MMOL/L (20-31); CHLORIDE LEVEL 98 MMOL/L (98-107); CREATININE FOR GFR 1.56 MG/DL (0.55-1.30); GLOMERULAR FILTRATION RATE 34.8 (>39); GLUCOSE, FASTING 184 MG/DL (74-106); POTASSIUM SERUM 3.8 MMOL/L (3.5-5.1); SODIUM LEVEL 134 MMOL/L (136-145); TOTAL PROTEIN 6.1 G/DL (5.7-8.2)
[2023-07-12] MEDS ORDERED: FLUT1BLS8 IH (14:07)
[2023-07-12] MEDS ORDERED: HOME MED LIST COMPLETE! XX SCH (14:10)
[2023-07-12] MEDS: LIDOCAINE 2% 5ML JELLY UROJET TOP ONE (14:12)
[2023-07-12] MEDS: CEFEPIME HCL 1 GM in D5W MINI-BAG PLUS 50 ML IV ONE (14:26)
[2023-07-12] MEDS: methylPREDNISolone 125MG 2ML VIAL IV ONE (14:26)
[2023-07-12] MEDS: FUROSEMIDE 100MG/10ML VIAL IV ONE (14:26)
[2023-07-12 15:43] LABS: ABG BASE EXCESS 4.8 (-2.0-2.0); ABG O2 SATURATION 90.6 % (95.0-99.0); ABG PARTIAL PRESSURE O2 63.5 mmHg (75.0-100.0); ABG STANDARD HCO3 28.7 MMOL/L. (22.0-26.0); ABG TOTAL CO2 35.2 MMOL/L (23.0-31.0)
[2023-07-12 15:45] LABS: ABG PARTIAL PRESSURE CO2 70.2 mmHg (35.0-45.0)
[2023-07-12] MEDS: AZITHROMYCIN INJ 500 MG, VIAL MATE ADAPTER 1 EACH in NS 250 ML IV ONE (15:45)
[2023-07-12] MEDS: IPRATROPIUM 0.5MG/ALBUTEROL 2.5MG INH SOL UD 3ML (DUONEB) NEB PRN (17:05)
[2023-07-12 17:32] LABS: ABG BASE EXCESS 5.8 (-2.0-2.0); ABG HCO3 33.9 MMOL/L (22.0-26.0); ABG O2 SATURATION 95.1 % (95.0-99.0); ABG PARTIAL PRESSURE O2 78.6 mmHg (75.0-100.0); ABG STANDARD HCO3 29.7 MMOL/L. (22.0-26.0); ABG TOTAL CO2 36.2 MMOL/L (23.0-31.0)
[2023-07-12 17:34] LABS: ABG PARTIAL PRESSURE CO2 72.2 mmHg (35.0-45.0)
[2023-07-12] MEDS ORDERED: DEXTROSE 50% 50ML SYRINGE IV PRN (20:20)
[2023-07-12] MEDS ORDERED: ALBUTEROL SULFATE 2.5MG/0.5ML INH NEB SOLN NEB PRN (20:20)
[2023-07-12] MEDS ORDERED: GLUCOSE 4GM CHEW TABLET PO PRN (20:20)
[2023-07-12] MEDS ORDERED: GLUCAGON INJ 1MG VIAL SC PRN (20:20)
[2023-07-12 20:32] LABS: APPEARANCE, URINE HAZY (CLEAR); BACTERIA, URINE AUTO 1+ (NEGATIVE); BILIRUBIN, URINE AUTO NEGATIVE (NEGATIVE); BLOOD, URINE BLOOD 2+ (NEGATIVE); COLOR, URINE YELLOW (YELLOW); GLUCOSE, URINE (UA) AUTO NEGATIVE (NEGATIVE); KETONE, URINE AUTO NEGATIVE (NEGATIVE); LEUKOCYTE ESTERASE, URINE AUTO 1+ (NEGATIVE); MUCUS, URINE SMALL (NEGATIVE); NITRITE, URINE AUTO NEGATIVE (NEGATIVE); PROTEIN, URINE AUTO NEGATIVE (NEGATIVE); RBC, URINE AUTO 31 /HPF (0-3); SPECIFIC GRAVITY URINE AUTO 1.013 (1.002-1.035); SQUAMOUS EPITHELIAL CELL UR AU 0 /HPF (0-6); UROBILINOGEN, URINE AUTO 0.2 mg/dL (0.0-2.0); WBC, URINE AUTO 15 /HPF (0-3)
[2023-07-12 20:52] LABS: AMPHETAMINES LEVEL URINE NEGATIVE (NEGATIVE); BARBITURATES URINE NEGATIVE (NEGATIVE); BENZODIAZEPINES URINE NEGATIVE (NEGATIVE); CANNABINOIDS URINE NEGATIVE (NEGATIVE); COCAINE METABOLITE URINE NEGATIVE (NEGATIVE); METHADONE URINE NEGATIVE (NEGATIVE); OPIATES URINE NEGATIVE (NEGATIVE); PHENCYCLIDINE URINE NEGATIVE (NEGATIVE)
[2023-07-12] MEDS ORDERED: ADVAIR HFA 230/21MCG INHALER INH SCH (21:00)
[2023-07-12] MEDS ORDERED: XIIDRA OU SCH (21:00)
[2023-07-12] MEDS: DOCUSATE SODIUM 100MG CAPSULE PO SCH (22:00)
[2023-07-12] MEDS: GABAPENTIN 400MG CAP PO SCH (22:00)
[2023-07-12 22:14] LABS: ABG BASE EXCESS 6.2 (-2.0-2.0); ABG HCO3 34.8 MMOL/L (22.0-26.0); ABG O2 SATURATION 98.1 % (95.0-99.0); ABG PARTIAL PRESSURE O2 120.7 mmHg (75.0-100.0); ABG STANDARD HCO3 30.1 MMOL/L. (22.0-26.0); ABG TOTAL CO2 37.2 MMOL/L (23.0-31.0); ABG pH (ARTERIAL) 7.272 UNITS (7.350-7.450)
[2023-07-12 22:15] LABS: ABG PARTIAL PRESSURE CO2 77.2 mmHg (35.0-45.0)
[2023-07-12] MEDS: PERCOCET 5MG/325MG TAB PO SCH (22:24)
[2023-07-12] MEDS: APIXABAN 5 MG TAB (ELIQUIS) PO SCH (22:25)
[2023-07-12] MEDS: LATANOPROST 0.005% OPHTH SOLN 2.5 ML OU SCH (22:25)
[2023-07-12] MEDS: OLANZapine 5 MG TAB PO SCH (22:25)
[2023-07-13] VITALS (23 sets, daily range): BP systolic 117–138; BP diastolic 57–66; TEMP 97–98.1; O2SAT 90–96
[2023-07-13] MEDS: INSULIN LISPRO (NovoLOG) PER UNIT SC SCH ×3 (00:29→20:37)
[2023-07-13] MEDS: methylPREDNISolone 125MG 2ML VIAL IV SCH (00:29)
[2023-07-13] MEDS: IPRATROPIUM 0.5MG/ALBUTEROL 2.5MG INH SOL UD 3ML (DUONEB) NEB SCH (01:16)
[2023-07-13 02:37] LABS: ABG BASE EXCESS 3.7 (-2.0-2.0); ABG HCO3 30.3 MMOL/L (22.0-26.0); ABG O2 SATURATION 97.6 % (95.0-99.0); ABG PARTIAL PRESSURE CO2 56.8 mmHg (35.0-45.0); ABG PARTIAL PRESSURE O2 99.2 mmHg (75.0-100.0); ABG STANDARD HCO3 27.8 MMOL/L. (22.0-26.0); ABG pH (ARTERIAL) 7.345 UNITS (7.350-7.450)
[2023-07-13 05:55] LABS: ABG HCO3 36.5 MMOL/L (22.0-26.0); ABG O2 SATURATION 97.2 % (95.0-99.0); ABG PARTIAL PRESSURE O2 96.4 mmHg (75.0-100.0); ABG STANDARD HCO3 32.7 MMOL/L. (22.0-26.0); ABG TOTAL CO2 38.7 MMOL/L (23.0-31.0); ABG pH (ARTERIAL) 7.336 UNITS (7.350-7.450)
[2023-07-13 06:00] LABS: ABG PARTIAL PRESSURE CO2 69.9 mmHg (35.0-45.0)
[2023-07-13 06:08] LABS: HEMATOCRIT 27.5 % (36.0-47.0); HEMOGLOBIN 8.5 g/dl (12.0-15.5); MEAN CORPUSCULAR HEMOGLOBIN 29.7 pg (27.0-33.0); MEAN CORPUSCULAR HGB CONC 30.9 g/dl (32.0-36.5); MEAN CORPUSCULAR VOLUME 96.2 fl (80.0-96.0); PLATELET COUNT, AUTOMATED 216 10^3/uL (150-450); RED BLOOD COUNT 2.86 10^6/uL (4.00-5.40); WHITE BLOOD COUNT 10.7 10^3/uL (4.0-10.0)
[2023-07-13 06:35] LABS: ALBUMIN 2.9 G/DL (3.2-5.2); BILIRUBIN,TOTAL 0.3 MG/DL (0.3-1.2); CALCIUM LEVEL 8.3 MG/DL (8.3-10.6); CREATININE FOR GFR 1.11 MG/DL (0.55-1.30); GLOMERULAR FILTRATION RATE 51.6 (>39); MAGNESIUM LEVEL 2.2 MG/DL (1.8-2.4); POTASSIUM SERUM 4.4 MMOL/L (3.5-5.1)
[2023-07-13] MEDS ORDERED: PANTOPRAZOLE 40MG TAB (PROTONIX) PO SCH (09:00)
[2023-07-13] MEDS ORDERED: DOCUSATE SODIUM 100MG CAPSULE PO SCH (09:00)
[2023-07-13] MEDS ORDERED: ENTER DRUG NAME HERE (PATIENT'S OWN MED) INH SCH (09:00)
[2023-07-13] MEDS: SYMBICORT 160/4.5MCG INHALER 6GM INH SCH (09:52)
[2023-07-13] MEDS: TIOTROPIUM INHALER/CAPSULE (SPIRIVA) INH SCH (09:52)
[2023-07-13] MEDS: PANTOPRAZOLE 40MG TAB (PROTONIX) PO SCH (09:57)
[2023-07-13] MEDS: ATORVASTATIN 20 MG TAB PO SCH (09:57)
[2023-07-13] MEDS: oxyBUTYnin *DITROPAN XL* 5 MG TABCR PO SCH (09:57)
[2023-07-13] MEDS: TORSEMIDE 20 MG TAB PO SCH (09:58)
[2023-07-13] MEDS: SPIRONOLACTONE 50 MG TAB PO SCH (09:58)
[2023-07-13] MEDS ORDERED: methylPREDNISolone 40MG 1ML VIAL IV SCH (14:00)
[2023-07-13] MEDS: GABAPENTIN 100 MG CAP PO SCH (18:26)
[2023-07-14] VITALS (19 sets, daily range): BP systolic 116–144; BP diastolic 52–73; TEMP 97.3–97.8; O2SAT 90–96
[2023-07-14 05:58] LABS: ABG HCO3 34.5 MMOL/L (22.0-26.0); ABG O2 SATURATION 97.3 % (95.0-99.0); ABG PARTIAL PRESSURE CO2 52.8 mmHg (35.0-45.0); ABG STANDARD HCO3 32.8 MMOL/L. (22.0-26.0); ABG TOTAL CO2 36.1 MMOL/L (23.0-31.0); ABG pH (ARTERIAL) 7.433 UNITS (7.350-7.450)
[2023-07-14 06:08] LABS: BASO % 0.1 % (0.0-1.0); EOS % 0.1 % (0.0-3.0); HEMATOCRIT 27.2 % (36.0-47.0); HEMOGLOBIN 8.4 g/dl (12.0-15.5); LYMPH # 0.8 10^3/uL (1.5-5.0); LYMPH % 4.9 % (24.0-44.0); MEAN CORPUSCULAR HEMOGLOBIN 29.4 pg (27.0-33.0); MEAN CORPUSCULAR HGB CONC 30.9 g/dl (32.0-36.5); MEAN CORPUSCULAR VOLUME 95.1 fl (80.0-96.0); MONO # 1.1 10^3/uL (0.0-0.8); MONO % 6.2 % (2.0-8.0); NEUTROPHILS # 14.8 10^3/uL (1.5-8.5); NEUTROPHILS % 87.1 % (36.0-66.0); PLATELET COUNT, AUTOMATED 239 10^3/uL (150-450); RED BLOOD COUNT 2.86 10^6/uL (4.00-5.40)
[2023-07-14 06:34] LABS: CREATININE FOR GFR 1.27 MG/DL (0.55-1.30); GLOMERULAR FILTRATION RATE 44.2 (>39); POTASSIUM SERUM 4.3 MMOL/L (3.5-5.1)
[2023-07-14 08:23] LABS: HEMOGLOBIN A1c 7.8 % (4.0-6.0)
[2023-07-14] MEDS: amLODIPine 5 MG TAB PO SCH (08:24)
[2023-07-14] MEDS: LEVEMIR (INSULIN DETEMIR) 1 UNITS/0.01ML SC SCH (08:26)
[2023-07-14 11:49] LABS: C REACTIVE PROTEIN QUANTITATIV 4.8 MG/DL (<1.0)
[2023-07-14 12:02] LABS: PROCALCITONIN 0.09 ng/ml
[2023-07-14] MEDS: MIRALAX *UNIT DOSE* 17GM PACKET PO SCH (13:23)
[2023-07-14] MEDS: SENNA 8.6 MG TAB (SENOKOT) PO SCH (13:23)
[2023-07-14] MEDS: ERTAPENEM SODIUM 1 GM in NS MINI-BAG PLUS 50 ML IV SCH (13:24)
[2023-07-14] MEDS: PERCOCET 5MG/325MG TAB PO PRN (17:59)
[2023-07-14] MEDS: FLEET ENEMA PR ONE (19:45)
[2023-07-15 04:21] VITALS: BP 112/61; TEMP 97.7; O2SAT 98
[2023-07-15 06:30] LABS: BASO % 0.3 % (0.0-1.0); EOS # 0.2 10^3/uL (0.0-0.5); EOS % 1.3 % (0.0-3.0); HEMATOCRIT 27.9 % (36.0-47.0); HEMOGLOBIN 8.6 g/dl (12.0-15.5); LYMPH % 17.1 % (24.0-44.0); MEAN CORPUSCULAR HEMOGLOBIN 29.9 pg (27.0-33.0); MEAN CORPUSCULAR HGB CONC 30.8 g/dl (32.0-36.5); MEAN CORPUSCULAR VOLUME 96.9 fl (80.0-96.0); MONO # 1.2 10^3/uL (0.0-0.8); MONO % 10.7 % (2.0-8.0); NEUTROPHILS % 69.6 % (36.0-66.0); PLATELET COUNT, AUTOMATED 246 10^3/uL (150-450); RED BLOOD COUNT 2.88 10^6/uL (4.00-5.40); WHITE BLOOD COUNT 11.5 10^3/uL (4.0-10.0)
[2023-07-15 07:02] LABS: BLOOD UREA NITROGEN 41 MG/DL (9-23); CALCIUM LEVEL 9.1 MG/DL (8.3-10.6); CARBON DIOXIDE LEVEL > 40.0 MMOL/L (20-31); CHLORIDE LEVEL 98 MMOL/L (98-107); CREATININE FOR GFR 1.06 MG/DL (0.55-1.30); GLOMERULAR FILTRATION RATE 54.4 (>39); GLUCOSE, FASTING 170 MG/DL (74-106); POTASSIUM SERUM 3.3 MMOL/L (3.5-5.1); SODIUM LEVEL 141 MMOL/L (136-145)
[2023-07-15 07:57] VITALS: BP 128/58; TEMP 97; O2SAT 92
[2023-07-15] MEDS: MIRALAX *UNIT DOSE* 17GM PACKET PO SCH (09:06)
[2023-07-15] MEDS: POTASSIUM CHLORIDE 10MEQ SR TABLET PO SCH (09:06)
[2023-07-15] MEDS: CEFDINIR 300 MG CAP (OMNICEF) PO SCH (11:42)
[2023-07-15 16:00] VITALS: BP 100/56; TEMP 97.6; O2SAT 93
[2023-07-15] MEDS: ACETAMINOPHEN TAB 650MG DOSE (2X325MG) PO PRN (18:02)
[2023-07-15 18:38] VITALS: BP 125/60; TEMP 98.7
[2023-07-15 21:15] VITALS: BP 124/60; TEMP 97.5; O2SAT 95
[2023-07-16 06:00] VITALS: BP 133/70; TEMP 96.8; O2SAT 92
[2023-07-16 06:53] LABS: BASO % 0.4 % (0.0-1.0); EOS # 0.4 10^3/uL (0.0-0.5); EOS % 3.5 % (0.0-3.0); HEMATOCRIT 30.8 % (36.0-47.0); HEMOGLOBIN 9.5 g/dl (12.0-15.5); MEAN CORPUSCULAR HEMOGLOBIN 29.6 pg (27.0-33.0); MEAN CORPUSCULAR HGB CONC 30.8 g/dl (32.0-36.5); MONO % 10.3 % (2.0-8.0); NEUTROPHILS # 6.5 10^3/uL (1.5-8.5); NEUTROPHILS % 64.1 % (36.0-66.0); PLATELET COUNT, AUTOMATED 267 10^3/uL (150-450); RED BLOOD COUNT 3.21 10^6/uL (4.00-5.40); WHITE BLOOD COUNT 10.1 10^3/uL (4.0-10.0)
[2023-07-16 07:13] LABS: BLOOD UREA NITROGEN 33 MG/DL (9-23); CALCIUM LEVEL 9.1 MG/DL (8.3-10.6); CARBON DIOXIDE LEVEL > 40.0 MMOL/L (20-31); CHLORIDE LEVEL 93 MMOL/L (98-107); CREATININE FOR GFR 1.07 MG/DL (0.55-1.30); GLOMERULAR FILTRATION RATE 53.8 (>39); GLUCOSE, FASTING 143 MG/DL (74-106); POTASSIUM SERUM 3.3 MMOL/L (3.5-5.1); SODIUM LEVEL 139 MMOL/L (136-145)
[2023-07-16] MEDS: POTASSIUM CHLORIDE 10MEQ SR TABLET PO ONE (14:01)
[2023-07-16 14:45] VITALS: BP 148/79; TEMP 97.7; O2SAT 93
[2023-07-16 19:27] VITALS: O2SAT 98
[2023-07-16 19:44] VITALS: BP 140/81; TEMP 97.9; O2SAT 94
[2023-07-17 05:29] VITALS: BP 140/76; TEMP 97; O2SAT 93
[2023-07-17 06:25] LABS: BASO % 0.3 % (0.0-1.0); EOS # 0.5 10^3/uL (0.0-0.5); HEMOGLOBIN 9.7 g/dl (12.0-15.5); LYMPH # 1.8 10^3/uL (1.5-5.0); LYMPH % 15.3 % (24.0-44.0); MEAN CORPUSCULAR HEMOGLOBIN 29.5 pg (27.0-33.0); MEAN CORPUSCULAR HGB CONC 30.3 g/dl (32.0-36.5); MEAN CORPUSCULAR VOLUME 97.3 fl (80.0-96.0); NEUTROPHILS # 8.4 10^3/uL (1.5-8.5); PLATELET COUNT, AUTOMATED 280 10^3/uL (150-450); RED BLOOD COUNT 3.29 10^6/uL (4.00-5.40)
[2023-07-17 07:00] LABS: CALCIUM LEVEL 9.1 MG/DL (8.3-10.6); CREATININE FOR GFR 1.17 MG/DL (0.55-1.30); GLOMERULAR FILTRATION RATE 48.5 (>39)
[2023-07-17] MEDS: LACTOBACILLUS ACIDOPHILUS CAP (BACID) PO SCH (12:30)
[2023-07-17 14:00] VITALS: BP 122/68; TEMP 97.7; O2SAT 92
[2023-07-17 19:53] VITALS: BP 126/67; TEMP 98.1; O2SAT 95
[2023-07-18 04:53] VITALS: BP 124/65; TEMP 97.5; O2SAT 94
[2023-07-18 06:11] LABS: BASO % 0.3 % (0.0-1.0); EOS # 0.5 10^3/uL (0.0-0.5); EOS % 3.5 % (0.0-3.0); HEMATOCRIT 31.7 % (36.0-47.0); HEMOGLOBIN 9.7 g/dl (12.0-15.5); LYMPH # 1.9 10^3/uL (1.5-5.0); LYMPH % 13.2 % (24.0-44.0); MEAN CORPUSCULAR HEMOGLOBIN 29.8 pg (27.0-33.0); MEAN CORPUSCULAR HGB CONC 30.6 g/dl (32.0-36.5); MEAN CORPUSCULAR VOLUME 97.2 fl (80.0-96.0); MONO # 1.1 10^3/uL (0.0-0.8); MONO % 7.8 % (2.0-8.0); NEUTROPHILS # 10.1 10^3/uL (1.5-8.5); NEUTROPHILS % 71.4 % (36.0-66.0); PLATELET COUNT, AUTOMATED 293 10^3/uL (150-450); RED BLOOD COUNT 3.26 10^6/uL (4.00-5.40); WHITE BLOOD COUNT 14.1 10^3/uL (4.0-10.0)
[2023-07-18 06:25] LABS: CALCIUM LEVEL 9.1 MG/DL (8.3-10.6); CREATININE FOR GFR 1.03 MG/DL (0.55-1.30); GLOMERULAR FILTRATION RATE 56.2 (>39); POTASSIUM SERUM 3.5 MMOL/L (3.5-5.1)
[2023-07-18 14:00] VITALS: BP 131/101; TEMP 97.7; O2SAT 94
[2023-07-18 14:25] VITALS: BP 128/66
[2023-07-18 20:32] VITALS: O2SAT 98
[2023-07-18 22:00] VITALS: BP 141/71; TEMP 97.9; O2SAT 95
[2023-07-19 01:31] VITALS: O2SAT 94
[2023-07-19 05:28] VITALS: BP 127/66; TEMP 97.3; O2SAT 91
[2023-07-19 07:03] LABS: BASO # 0.1 10^3/uL (0.0-0.2); BASO % 0.4 % (0.0-1.0); EOS # 0.6 10^3/uL (0.0-0.5); EOS % 3.9 % (0.0-3.0); HEMATOCRIT 29.8 % (36.0-47.0); HEMOGLOBIN 9.1 g/dl (12.0-15.5); LYMPH # 1.5 10^3/uL (1.5-5.0); LYMPH % 10.8 % (24.0-44.0); MEAN CORPUSCULAR HEMOGLOBIN 29.2 pg (27.0-33.0); MEAN CORPUSCULAR HGB CONC 30.5 g/dl (32.0-36.5); MEAN CORPUSCULAR VOLUME 95.5 fl (80.0-96.0); MONO # 1.3 10^3/uL (0.0-0.8); MONO % 8.9 % (2.0-8.0); NEUTROPHILS # 10.1 10^3/uL (1.5-8.5); NEUTROPHILS % 72.4 % (36.0-66.0); PLATELET COUNT, AUTOMATED 260 10^3/uL (150-450); RED BLOOD COUNT 3.12 10^6/uL (4.00-5.40)
[2023-07-19 07:40] LABS: CALCIUM LEVEL 8.6 MG/DL (8.3-10.6); CREATININE FOR GFR 1.08 MG/DL (0.55-1.30); GLOMERULAR FILTRATION RATE 53.2 (>39); POTASSIUM SERUM 3.4 MMOL/L (3.5-5.1)
[2023-07-19 08:17] VITALS: BP 150/62
[2023-07-19] MEDS ORDERED: PERC10TA26 PO (09:51)
[2023-07-19] MEDS ORDERED: RISATAB3 PO (09:57)
[2023-07-19] MEDS ORDERED: MIRA33506 PO (09:57)
[2023-07-19] MEDS ORDERED: GABA-1171 PO (09:57)
[2023-07-19] MEDS ORDERED: SENO8.6T5 PO (09:57)
== END 2023-07-19 13:40 | disposition home health service (06) | DRG 291 ==
LOC: M ED 11:58 → EDBD 11:58 → EDBEDREQSVC 18:06 → EEVIPCON 20:17 → M ED INP 20:17 → ENRESERV 22:48 → CANRESERV 22:48 → M PCU 07-13 03:55 → M MS5PR 07-15 18:23
PROVIDERS: ADMIT Family Medicine; ATTEND Internal Medicine Nephrology
DX: I13.0 Hypertensive heart and chronic kidney disease with heart failure and stage 1 through stage 4 chronic kidney disease, or unspecified chronic kidney disease (principal); I50.33 Acute on chronic diastolic (congestive) heart failure; R53.2 Functional quadriplegia; J96.22 Acute and chronic respiratory failure with hypercapnia; J96.21 Acute and chronic respiratory failure with hypoxia; E66.2 Morbid (severe) obesity with alveolar hypoventilation; Z68.43 Body mass index [BMI] 50.0-59.9, adult; N17.9 Acute kidney failure, unspecified; J44.1 Chronic obstructive pulmonary disease with (acute) exacerbation; M46.27 Osteomyelitis of vertebra, lumbosacral region; I50.810 Right heart failure, unspecified; E11.22 Type 2 diabetes mellitus with diabetic chronic kidney disease; G25.3 Myoclonus; G89.29 Other chronic pain; E78.5 Hyperlipidemia, unspecified; K21.9 Gastro-esophageal reflux disease without esophagitis; N18.30 Chronic kidney disease, stage 3 unspecified; G25.81 Restless legs syndrome; F32.A Depression, unspecified; E11.69 Type 2 diabetes mellitus with other specified complication; F41.9 Anxiety disorder, unspecified; D50.9 Iron deficiency anemia, unspecified; G43.909 Migraine, unspecified, not intractable, without status migrainosus; B96.20 Unspecified Escherichia coli [E. coli] as the cause of diseases classified elsewhere; H40.9 Unspecified glaucoma; I27.20 Pulmonary hypertension, unspecified; R32 Unspecified urinary incontinence; I27.81 Cor pulmonale (chronic); Z85.118 Personal history of other malignant neoplasm of bronchus and lung; Z90.2 Acquired absence of lung [part of]; Z99.3 Dependence on wheelchair; Z90.49 Acquired absence of other specified parts of digestive tract; Z87.891 Personal history of nicotine dependence; Z79.01 Long term (current) use of anticoagulants; Z79.84 Long term (current) use of oral hypoglycemic drugs; Z79.891 Long term (current) use of opiate analgesic; Z79.899 Other long term (current) drug therapy; Z88.8 Allergy status to other drugs, medicaments and biological substances; Z20.822 Contact with and (suspected) exposure to COVID-19; Z86.711 Personal history of pulmonary embolism; E11.51 Type 2 diabetes mellitus with diabetic peripheral angiopathy without gangrene; I73.9 Peripheral vascular disease, unspecified; E11.42 Type 2 diabetes mellitus with diabetic polyneuropathy; S90.221A Contusion of right lesser toe(s) with damage to nail, initial encounter; X58.XXXA Exposure to other specified factors, initial encounter; Y92.009 Unspecified place in unspecified non-institutional (private) residence as the place of occurrence of the external cause; Y93.9 Activity, unspecified

== ENCOUNTER 2023-07-22 20:33 | Inpatient (IN) | payer MEDICARE, BC, OTHER ==
[~2023-07-22] VITALS: Ht 157.5 cm; Wt 123.8 kg
[2023-07-22] MEDS: OLANZapine 5 MG TAB PO SCH (03:01)
[~2023-07-22 20:33] MED LIST changes: +FLUT1BLS8 IH; +MIRA33506 PO; +SENO8.6T5 PO
[2023-07-22] MEDS: NS 500 ML IV ONE ×2 (20:50→22:00)
[2023-07-22 21:10] LABS: VENOUS BASE EXCESS 2.6 (-2.0-2.0); VENOUS HCO3 29.8 MMOL/L (23.0-27.0); VENOUS O2 SATURATION 91.6 % (60.0-80.0); VENOUS PARTIAL PRESSURE CO2 60.4 mmHg (38.0-50.0); VENOUS PARTIAL PRESSURE O2 61.5 mmHg (30.0-50.0); VENOUS PH 7.311 UNITS (7.330-7.430); VENOUS STANDARD HCO3 26.7 MMOL/L; VENOUS TOTAL CO2 31.7 MMOL/L (24.0-28.0)
[2023-07-22 21:21] LABS: APPEARANCE, URINE CLEAR (CLEAR); BACTERIA, URINE AUTO NEGATIVE (NEGATIVE); BILIRUBIN, URINE AUTO NEGATIVE (NEGATIVE); BLOOD, URINE BLOOD NEGATIVE (NEGATIVE); COLOR, URINE YELLOW (YELLOW); GLUCOSE, URINE (UA) AUTO NEGATIVE (NEGATIVE); KETONE, URINE AUTO NEGATIVE (NEGATIVE); LEUKOCYTE ESTERASE, URINE AUTO NEGATIVE (NEGATIVE); NITRITE, URINE AUTO NEGATIVE (NEGATIVE); PROTEIN, URINE AUTO NEGATIVE (NEGATIVE); RBC, URINE AUTO 0 /HPF (0-3); SPECIFIC GRAVITY URINE AUTO 1.013 (1.002-1.035); SQUAMOUS EPITHELIAL CELL UR AU 0 /HPF (0-6); UROBILINOGEN, URINE AUTO 0.2 mg/dL (0.0-2.0); WBC, URINE AUTO 1 /HPF (0-3)
[2023-07-22 21:23] LABS: BASO % 0.2 % (0.0-1.0); EOS # 0.3 10^3/uL (0.0-0.5); EOS % 1.9 % (0.0-3.0); HEMATOCRIT 29.9 % (36.0-47.0); HEMOGLOBIN 9.1 g/dl (12.0-15.5); LYMPH # 1.1 10^3/uL (1.5-5.0); LYMPH % 6.7 % (24.0-44.0); MEAN CORPUSCULAR HEMOGLOBIN 29.3 pg (27.0-33.0); MEAN CORPUSCULAR HGB CONC 30.4 g/dl (32.0-36.5); MEAN CORPUSCULAR VOLUME 96.1 fl (80.0-96.0); MONO # 1.4 10^3/uL (0.0-0.8); MONO % 8.7 % (2.0-8.0); NEUTROPHILS % 80.5 % (36.0-66.0); PLATELET COUNT, AUTOMATED 284 10^3/uL (150-450); RED BLOOD COUNT 3.11 10^6/uL (4.00-5.40); WHITE BLOOD COUNT 16.2 10^3/uL (4.0-10.0)
[2023-07-22 21:38] LABS: CK-MB VALUE MASS < 1.0 NG/ML (<3.6)
[2023-07-22 21:39] LABS: ALBUMIN 3.3 G/DL (3.2-5.2); ALKALINE PHOSPHATASE 92 U/L (46-116); ALT/SGPT 31 U/L (7.0-40); AMYLASE 54 U/L (30-118); AST/SGOT 16 U/L (<34); BILIRUBIN,DIRECT < 0.1 MG/DL (<0.4); BILIRUBIN,TOTAL 0.2 MG/DL (0.3-1.2); BLOOD UREA NITROGEN 54 MG/DL (9-23); CALCIUM LEVEL 9.2 MG/DL (8.3-10.6); CARBON DIOXIDE LEVEL 31 MMOL/L (20-31); CHLORIDE LEVEL 98 MMOL/L (98-107); CREATININE FOR GFR 2.04 MG/DL (0.55-1.30); GLOMERULAR FILTRATION RATE 25.5 (>39); GLUCOSE, FASTING 184 MG/DL (74-106); POTASSIUM SERUM 4.4 MMOL/L (3.5-5.1); SODIUM LEVEL 135 MMOL/L (136-145); TOTAL PROTEIN 6.6 G/DL (5.7-8.2)
[2023-07-22 21:53] LABS: CPK CREATINE PHOSPHOKINASE 49 U/L (34-145); MB/CK RELATIVE INDEX 2.04 (< OR =4)
[2023-07-22] MEDS: ACETAMINOPHEN *IV* 1,000 MG in IV 1 EA IV ONE (22:12)
[2023-07-22] MEDS: cefTRIAXone SOD 2 GM in D5W MINI-BAG PLUS 50 ML IV ONE (22:12)
[2023-07-22] MEDS ORDERED: GABA-1171 PO (22:52)
[2023-07-22] MEDS ORDERED: HOME MED LIST COMPLETE! XX SCH (22:55)
[2023-07-23] VITALS (8 sets, daily range): BP systolic 90–122; BP diastolic 51–60; TEMP 97.3–99.7; O2SAT 92–96
[2023-07-23] MEDS ORDERED: GLUCOSE 4GM CHEW TABLET PO PRN (01:05)
[2023-07-23] MEDS ORDERED: DEXTROSE 50% 50ML SYRINGE IV PRN (01:05)
[2023-07-23] MEDS ORDERED: GLUCAGON INJ 1MG VIAL SC PRN (01:05)
[2023-07-23] MEDS: IPRATROPIUM 0.5MG/ALBUTEROL 2.5MG INH SOL UD 3ML (DUONEB) NEB SCH (01:41)
[2023-07-23] MEDS: AZITHROMYCIN INJ 500 MG, VIAL MATE ADAPTER 1 EACH in NS 250 ML IV SCH (06:18)
[2023-07-23 06:26] LABS: CALCIUM LEVEL 8.3 MG/DL (8.3-10.6); CREATININE FOR GFR 1.89 MG/DL (0.55-1.30); GLOMERULAR FILTRATION RATE 27.8 (>39); POTASSIUM SERUM 4.1 MMOL/L (3.5-5.1)
[2023-07-23 07:30] LABS: BASO % 0.2 % (0.0-1.0); EOS # 0.3 10^3/uL (0.0-0.5); EOS % 1.7 % (0.0-3.0); HEMATOCRIT 24.8 % (36.0-47.0); HEMOGLOBIN 7.6 g/dl (12.0-15.5); LYMPH # 1.1 10^3/uL (1.5-5.0); LYMPH % 6.8 % (24.0-44.0); MEAN CORPUSCULAR HEMOGLOBIN 29.8 pg (27.0-33.0); MEAN CORPUSCULAR HGB CONC 30.6 g/dl (32.0-36.5); MEAN CORPUSCULAR VOLUME 97.3 fl (80.0-96.0); MONO # 1.3 10^3/uL (0.0-0.8); NEUTROPHILS # 12.8 10^3/uL (1.5-8.5); NEUTROPHILS % 81.1 % (36.0-66.0); PLATELET COUNT, AUTOMATED 252 10^3/uL (150-450); RED BLOOD COUNT 2.55 10^6/uL (4.00-5.40); WHITE BLOOD COUNT 15.7 10^3/uL (4.0-10.0)
[2023-07-23] MEDS: TIOTROPIUM INHALER/CAPSULE (SPIRIVA) INH SCH (08:38)
[2023-07-23] MEDS: SYMBICORT 160/4.5MCG INHALER 6GM INH SCH (08:38)
[2023-07-23] MEDS: INSULIN LISPRO (NovoLOG) PER UNIT SC SCH ×2 (09:31→20:16)
[2023-07-23] MEDS: ATORVASTATIN 20 MG TAB PO SCH (09:31)
[2023-07-23] MEDS: APIXABAN 5 MG TAB (ELIQUIS) PO SCH (09:31)
[2023-07-23] MEDS: PANTOPRAZOLE 40MG TAB (PROTONIX) PO SCH (09:31)
[2023-07-23] MEDS: DOCUSATE SODIUM 100MG CAPSULE PO SCH (09:31)
[2023-07-23] MEDS: SENNA 8.6 MG TAB (SENOKOT) PO SCH (09:31)
[2023-07-23 13:25] LABS: HEMATOCRIT 25.1 % (36.0-47.0); HEMOGLOBIN 7.7 g/dl (12.0-15.5)
[2023-07-23 15:41] LABS: ABG BASE EXCESS 7.1 (-2.0-2.0); ABG HCO3 33.3 MMOL/L (22.0-26.0); ABG O2 SATURATION 88.1 % (95.0-99.0); ABG PARTIAL PRESSURE CO2 57.9 mmHg (35.0-45.0); ABG PARTIAL PRESSURE O2 51.9 mmHg (75.0-100.0); ABG STANDARD HCO3 30.8 MMOL/L. (22.0-26.0); ABG TOTAL CO2 35.1 MMOL/L (23.0-31.0); ABG pH (ARTERIAL) 7.378 UNITS (7.350-7.450)
[2023-07-23 16:43] LABS: BASO % 0.2 % (0.0-1.0); EOS # 0.3 10^3/uL (0.0-0.5); EOS % 2.1 % (0.0-3.0); HEMATOCRIT 27.6 % (36.0-47.0); HEMOGLOBIN 8.4 g/dl (12.0-15.5); LYMPH # 0.9 10^3/uL (1.5-5.0); LYMPH % 6.6 % (24.0-44.0); MEAN CORPUSCULAR HEMOGLOBIN 29.4 pg (27.0-33.0); MEAN CORPUSCULAR HGB CONC 30.4 g/dl (32.0-36.5); MEAN CORPUSCULAR VOLUME 96.5 fl (80.0-96.0); MONO # 0.9 10^3/uL (0.0-0.8); MONO % 6.6 % (2.0-8.0); NEUTROPHILS # 11.4 10^3/uL (1.5-8.5); NEUTROPHILS % 82.7 % (36.0-66.0); PLATELET COUNT, AUTOMATED 255 10^3/uL (150-450); RED BLOOD COUNT 2.86 10^6/uL (4.00-5.40); WHITE BLOOD COUNT 13.7 10^3/uL (4.0-10.0)
[2023-07-23 16:56] LABS: CALCIUM LEVEL 8.7 MG/DL (8.3-10.6); CREATININE FOR GFR 1.53 MG/DL (0.55-1.30); GLOMERULAR FILTRATION RATE 35.5 (>39); MAGNESIUM LEVEL 1.9 MG/DL (1.8-2.4)
[2023-07-23] MEDS: FUROSEMIDE 40MG/4ML VIAL IV SCH (17:52)
[2023-07-23] MEDS: LATANOPROST 0.005% OPHTH SOLN 2.5 ML OU SCH (20:22)
[2023-07-23] MEDS: PERCOCET 5MG/325MG TAB PO PRN (20:23)
[2023-07-23] MEDS: cefTRIAXone SOD 1 GM in D5W MINI-BAG PLUS 50 ML IV SCH (22:25)
[2023-07-24] VITALS (11 sets, daily range): BP systolic 108–141; BP diastolic 52–62; TEMP 97–97.8; O2SAT 92–98
[2023-07-24 04:37] LABS: BASO % 0.3 % (0.0-1.0); EOS # 0.3 10^3/uL (0.0-0.5); EOS % 2.7 % (0.0-3.0); HEMATOCRIT 23.8 % (36.0-47.0); HEMOGLOBIN 7.3 g/dl (12.0-15.5); LYMPH # 1.3 10^3/uL (1.5-5.0); LYMPH % 11.1 % (24.0-44.0); MEAN CORPUSCULAR HEMOGLOBIN 29.6 pg (27.0-33.0); MEAN CORPUSCULAR HGB CONC 30.7 g/dl (32.0-36.5); MEAN CORPUSCULAR VOLUME 96.4 fl (80.0-96.0); MONO # 1.1 10^3/uL (0.0-0.8); NEUTROPHILS # 8.9 10^3/uL (1.5-8.5); NEUTROPHILS % 74.7 % (36.0-66.0); PLATELET COUNT, AUTOMATED 242 10^3/uL (150-450); RED BLOOD COUNT 2.47 10^6/uL (4.00-5.40); WHITE BLOOD COUNT 11.9 10^3/uL (4.0-10.0)
[2023-07-24 05:01] LABS: CALCIUM LEVEL 8.3 MG/DL (8.3-10.6); CREATININE FOR GFR 1.24 MG/DL (0.55-1.30); GLOMERULAR FILTRATION RATE 45.3 (>39); MAGNESIUM LEVEL 1.9 MG/DL (1.8-2.4); POTASSIUM SERUM 3.6 MMOL/L (3.5-5.1)
[2023-07-24] MEDS: oxyBUTYnin *DITROPAN XL* 5 MG TABCR PO SCH (08:49)
[2023-07-24] MEDS: AZITHROMYCIN 250MG TABLET PO SCH (08:49)
[2023-07-24] MEDS: OLANZapine 2.5MG TABLET PO SCH (11:12)
[2023-07-24] MEDS ORDERED: PROHANCE 279.3MG/ML 15ML VIAL As Ordered ONE (12:37)
[2023-07-24] MEDS ORDERED: PROHANCE 279.3MG/ML 5ML VIAL As Ordered ONE (12:37)
[2023-07-24] MEDS: CEFDINIR 300 MG CAP (OMNICEF) PO SCH (20:31)
[2023-07-24] MEDS: LACTIC ACID 12% LOTION 225 GM BTL TOP SCH (20:31)
[2023-07-25] VITALS (11 sets, daily range): BP systolic 130–167; BP diastolic 65–76; TEMP 97–97.5; O2SAT 95–98
[2023-07-25 05:29] LABS: BASO # 0.1 10^3/uL (0.0-0.2); BASO % 0.4 % (0.0-1.0); EOS # 0.4 10^3/uL (0.0-0.5); EOS % 3.2 % (0.0-3.0); HEMATOCRIT 27.2 % (36.0-47.0); HEMOGLOBIN 8.3 g/dl (12.0-15.5); LYMPH # 1.3 10^3/uL (1.5-5.0); MEAN CORPUSCULAR HEMOGLOBIN 29.1 pg (27.0-33.0); MEAN CORPUSCULAR HGB CONC 30.5 g/dl (32.0-36.5); MEAN CORPUSCULAR VOLUME 95.4 fl (80.0-96.0); MONO # 1.2 10^3/uL (0.0-0.8); MONO % 9.2 % (2.0-8.0); NEUTROPHILS # 9.4 10^3/uL (1.5-8.5); NEUTROPHILS % 74.5 % (36.0-66.0); PLATELET COUNT, AUTOMATED 268 10^3/uL (150-450); RED BLOOD COUNT 2.85 10^6/uL (4.00-5.40); WHITE BLOOD COUNT 12.6 10^3/uL (4.0-10.0)
[2023-07-25 05:40] LABS: BLOOD UREA NITROGEN 20 MG/DL (9-23); CALCIUM LEVEL 9.1 MG/DL (8.3-10.6); CARBON DIOXIDE LEVEL 35 MMOL/L (20-31); CHLORIDE LEVEL 102 MMOL/L (98-107); CREATININE FOR GFR 0.76 MG/DL (0.55-1.30); GLOMERULAR FILTRATION RATE > 60.0 (>39); GLUCOSE, FASTING 131 MG/DL (74-106); MAGNESIUM LEVEL 1.6 MG/DL (1.8-2.4); POTASSIUM SERUM 3.3 MMOL/L (3.5-5.1); SODIUM LEVEL 142 MMOL/L (136-145)
[2023-07-25] MEDS: POTASSIUM CHLORIDE 10MEQ SR TABLET PO ONE (17:02)
[2023-07-25] MEDS: MAG SULF 1GM/100ML (MAG RUN) 1 GM in IV 1 EA IV SCH (17:02)
[2023-07-25] MEDS: ACETAMINOPHEN TAB 650MG DOSE (2X325MG) PO PRN (20:29)
[2023-07-26 04:17] VITALS: BP 147/75; TEMP 97; O2SAT 93
[2023-07-26 06:06] LABS: BASO # 0.1 10^3/uL (0.0-0.2); BASO % 0.6 % (0.0-1.0); EOS # 0.4 10^3/uL (0.0-0.5); EOS % 3.2 % (0.0-3.0); HEMATOCRIT 28.5 % (36.0-47.0); HEMOGLOBIN 8.8 g/dl (12.0-15.5); LYMPH # 1.5 10^3/uL (1.5-5.0); LYMPH % 13.6 % (24.0-44.0); MEAN CORPUSCULAR HEMOGLOBIN 29.3 pg (27.0-33.0); MEAN CORPUSCULAR HGB CONC 30.9 g/dl (32.0-36.5); MONO # 1.1 10^3/uL (0.0-0.8); MONO % 10.4 % (2.0-8.0); NEUTROPHILS # 7.6 10^3/uL (1.5-8.5); NEUTROPHILS % 69.7 % (36.0-66.0); PLATELET COUNT, AUTOMATED 306 10^3/uL (150-450); WHITE BLOOD COUNT 10.9 10^3/uL (4.0-10.0)
[2023-07-26 06:33] LABS: BLOOD UREA NITROGEN 14 MG/DL (9-23); CALCIUM LEVEL 9.2 MG/DL (8.3-10.6); CARBON DIOXIDE LEVEL 36 MMOL/L (20-31); CHLORIDE LEVEL 104 MMOL/L (98-107); CREATININE FOR GFR 0.81 MG/DL (0.55-1.30); GLOMERULAR FILTRATION RATE > 60.0 (>39); GLUCOSE, FASTING 115 MG/DL (74-106); MAGNESIUM LEVEL 1.8 MG/DL (1.8-2.4); POTASSIUM SERUM 3.5 MMOL/L (3.5-5.1); SODIUM LEVEL 142 MMOL/L (136-145)
[2023-07-26] MEDS: MAGNESIUM OXIDE 400MG TAB (MAG-OX) PO SCH (11:14)
[2023-07-26] MEDS: POTASSIUM CHLORIDE 10MEQ SR TABLET PO SCH (11:14)
[2023-07-26 14:00] VITALS: BP 142/76; TEMP 97.7; O2SAT 98
[2023-07-26 19:50] VITALS: BP 143/70; TEMP 97.5
[2023-07-26] MEDS: PERCOCET 5MG/325MG TAB PO PRN (20:05)
[2023-07-27] MEDS: ONDANSETRON 4MG ORAL DISINTEGRATING TAB SL PRN (00:14)
[2023-07-27 00:42] VITALS: BP 140/72; TEMP 97.9; O2SAT 93
[2023-07-27 05:23] VITALS: BP 111/61; TEMP 97.9; O2SAT 94
[2023-07-27 06:20] LABS: BASO # 0.1 10^3/uL (0.0-0.2); BASO % 0.5 % (0.0-1.0); EOS # 0.4 10^3/uL (0.0-0.5); EOS % 3.3 % (0.0-3.0); HEMATOCRIT 29.6 % (36.0-47.0); HEMOGLOBIN 8.9 g/dl (12.0-15.5); LYMPH # 1.6 10^3/uL (1.5-5.0); LYMPH % 12.7 % (24.0-44.0); MEAN CORPUSCULAR HEMOGLOBIN 28.8 pg (27.0-33.0); MEAN CORPUSCULAR HGB CONC 30.1 g/dl (32.0-36.5); MEAN CORPUSCULAR VOLUME 95.8 fl (80.0-96.0); MONO # 1.1 10^3/uL (0.0-0.8); MONO % 8.7 % (2.0-8.0); NEUTROPHILS # 8.9 10^3/uL (1.5-8.5); NEUTROPHILS % 72.8 % (36.0-66.0); PLATELET COUNT, AUTOMATED 299 10^3/uL (150-450); RED BLOOD COUNT 3.09 10^6/uL (4.00-5.40); WHITE BLOOD COUNT 12.3 10^3/uL (4.0-10.0)
[2023-07-27 06:51] LABS: BLOOD UREA NITROGEN 13 MG/DL (9-23); CARBON DIOXIDE LEVEL 32 MMOL/L (20-31); CHLORIDE LEVEL 100 MMOL/L (98-107); GLOMERULAR FILTRATION RATE > 60.0 (>39); GLUCOSE, FASTING 107 MG/DL (74-106); MAGNESIUM LEVEL 1.8 MG/DL (1.8-2.4); POTASSIUM SERUM 3.6 MMOL/L (3.5-5.1); SODIUM LEVEL 142 MMOL/L (136-145)
[2023-07-27 08:37] VITALS: BP 118/60; O2SAT 95
[2023-07-27 14:00] VITALS: BP 117/60; TEMP 97.7; O2SAT 94
[2023-07-27] MEDS: TORSEMIDE 20 MG TAB PO SCH (17:07)
[2023-07-27 21:00] VITALS: BP 136/67; TEMP 98.1; O2SAT 94
[2023-07-28 05:56] VITALS: BP 121/59; TEMP 97.7; O2SAT 94
[2023-07-28 06:12] LABS: BASO # 0.1 10^3/uL (0.0-0.2); BASO % 0.6 % (0.0-1.0); EOS # 0.4 10^3/uL (0.0-0.5); HEMATOCRIT 28.7 % (36.0-47.0); HEMOGLOBIN 8.7 g/dl (12.0-15.5); LYMPH # 1.6 10^3/uL (1.5-5.0); LYMPH % 11.8 % (24.0-44.0); MEAN CORPUSCULAR HEMOGLOBIN 28.7 pg (27.0-33.0); MEAN CORPUSCULAR HGB CONC 30.3 g/dl (32.0-36.5); MEAN CORPUSCULAR VOLUME 94.7 fl (80.0-96.0); MONO # 1.2 10^3/uL (0.0-0.8); NEUTROPHILS # 10.1 10^3/uL (1.5-8.5); NEUTROPHILS % 73.8 % (36.0-66.0); PLATELET COUNT, AUTOMATED 269 10^3/uL (150-450); RED BLOOD COUNT 3.03 10^6/uL (4.00-5.40); WHITE BLOOD COUNT 13.7 10^3/uL (4.0-10.0)
[2023-07-28 06:42] LABS: C REACTIVE PROTEIN QUANTITATIV 2.3 MG/DL (<1.0)
[2023-07-28 06:43] LABS: CALCIUM LEVEL 8.9 MG/DL (8.3-10.6); CREATININE FOR GFR 1.06 MG/DL (0.55-1.30); GLOMERULAR FILTRATION RATE 54.2 (>39); MAGNESIUM LEVEL 1.6 MG/DL (1.8-2.4); POTASSIUM SERUM 3.5 MMOL/L (3.5-5.1)
[2023-07-28] MEDS: MAG SULF 1GM/100ML (MAG RUN) 1 GM in IV 1 EA IV SCH (08:20)
[2023-07-28 14:00] VITALS: BP 128/70; TEMP 97; O2SAT 99
[2023-07-28 19:54] VITALS: BP 125/70; TEMP 97.7; O2SAT 93
[2023-07-28 20:27] VITALS: O2SAT 98
[2023-07-28 22:16] VITALS: O2SAT 95
[2023-07-28] MEDS: NYSTATIN 100,000 UNITS/GM TOPICAL PWD 15GM TOP PRN (22:38)
[2023-07-29] MEDS ORDERED: PERCOCET 5MG/325MG TAB PO PRN (00:30)
[2023-07-29 01:28] VITALS: O2SAT 97
[2023-07-29 05:28] VITALS: BP 116/67; TEMP 97.9; O2SAT 91
[2023-07-29 05:30] VITALS: O2SAT 95
[2023-07-29 05:48] VITALS: O2SAT 91
[2023-07-29 06:30] LABS: CALCIUM LEVEL 8.5 MG/DL (8.3-10.6); CREATININE FOR GFR 1.07 MG/DL (0.55-1.30); GLOMERULAR FILTRATION RATE 53.7 (>39); MAGNESIUM LEVEL 1.8 MG/DL (1.8-2.4); POTASSIUM SERUM 3.4 MMOL/L (3.5-5.1)
[2023-07-29] MEDS: KCL 10MEQ/100ML SWI (KRUN) 10 MEQ in IV 1 EA IV SCH (08:09)
[2023-07-29] MEDS: PERCOCET 5MG/325MG TAB PO PRN (08:18)
[2023-07-29 14:00] VITALS: BP 106/70; TEMP 97.7; O2SAT 96
[2023-07-29] MEDS: IPRATROPIUM 0.5MG/ALBUTEROL 2.5MG INH SOL UD 3ML (DUONEB) NEB SCH (19:48)
[2023-07-29 19:56] VITALS: BP 104/68; TEMP 97.9; O2SAT 99
[2023-07-30 04:57] VITALS: BP 104/67; TEMP 97.3; O2SAT 96
[2023-07-30 06:28] LABS: CALCIUM LEVEL 8.3 MG/DL (8.3-10.6); CREATININE FOR GFR 1.02 MG/DL (0.55-1.30); GLOMERULAR FILTRATION RATE 56.7 (>39); MAGNESIUM LEVEL 1.8 MG/DL (1.8-2.4); POTASSIUM SERUM 3.7 MMOL/L (3.5-5.1)
[2023-07-30] MEDS: MIRALAX *UNIT DOSE* 17GM PACKET PO PRN (12:15)
[2023-07-30 14:00] VITALS: BP 109/67; TEMP 97.7; O2SAT 94
[2023-07-30 21:08] VITALS: BP 125/64; TEMP 97.5; O2SAT 93
[2023-07-31 05:21] VITALS: BP 122/65; TEMP 97.7; O2SAT 96
[2023-07-31 06:57] LABS: CALCIUM LEVEL 8.2 MG/DL (8.3-10.6); CREATININE FOR GFR 1.09 MG/DL (0.55-1.30); GLOMERULAR FILTRATION RATE 52.5 (>39); MAGNESIUM LEVEL 1.9 MG/DL (1.8-2.4); POTASSIUM SERUM 3.8 MMOL/L (3.5-5.1)
[2023-07-31 14:00] VITALS: BP 120/63; TEMP 97.7; O2SAT 95
[2023-07-31] MEDS: IPRATROPIUM 0.5MG/ALBUTEROL 2.5MG INH SOL UD 3ML (DUONEB) NEB PRN (17:28)
[2023-07-31 21:01] VITALS: BP 116/68; TEMP 97.9; O2SAT 95
[2023-08-01 05:50] VITALS: BP 131/64; TEMP 97.5; O2SAT 96
[2023-08-01 06:09] LABS: BASO # 0.1 10^3/uL (0.0-0.2); BASO % 0.5 % (0.0-1.0); EOS # 0.4 10^3/uL (0.0-0.5); EOS % 3.4 % (0.0-3.0); HEMOGLOBIN 9.1 g/dl (12.0-15.5); LYMPH # 1.5 10^3/uL (1.5-5.0); LYMPH % 11.7 % (24.0-44.0); MEAN CORPUSCULAR HEMOGLOBIN 28.5 pg (27.0-33.0); MEAN CORPUSCULAR HGB CONC 30.3 g/dl (32.0-36.5); MONO # 1.2 10^3/uL (0.0-0.8); MONO % 9.1 % (2.0-8.0); NEUTROPHILS # 9.3 10^3/uL (1.5-8.5); PLATELET COUNT, AUTOMATED 287 10^3/uL (150-450); RED BLOOD COUNT 3.19 10^6/uL (4.00-5.40); WHITE BLOOD COUNT 12.6 10^3/uL (4.0-10.0)
[2023-08-01 06:52] LABS: BLOOD UREA NITROGEN 17 MG/DL (9-23); CALCIUM LEVEL 8.4 MG/DL (8.3-10.6); CARBON DIOXIDE LEVEL 34 MMOL/L (20-31); CHLORIDE LEVEL 98 MMOL/L (98-107); CREATININE FOR GFR 0.92 MG/DL (0.55-1.30); GLOMERULAR FILTRATION RATE > 60.0 (>39); GLUCOSE, FASTING 123 MG/DL (74-106); MAGNESIUM LEVEL 1.9 MG/DL (1.8-2.4); POTASSIUM SERUM 3.4 MMOL/L (3.5-5.1); SODIUM LEVEL 138 MMOL/L (136-145)
[2023-08-01 06:57] LABS: PROCALCITONIN 0.15 ng/ml
[2023-08-01] MEDS: POTASSIUM CHLORIDE 10MEQ SR TABLET PO SCH (07:57)
[2023-08-01 14:00] VITALS: BP 132/65; TEMP 97.3; O2SAT 99
[2023-08-01 17:03] VITALS: O2SAT 93
[2023-08-01 20:53] VITALS: BP 136/67; TEMP 97.9; O2SAT 95
[2023-08-02 06:00] VITALS: BP 122/65; TEMP 97.7; O2SAT 97
[2023-08-02] MEDS ORDERED: MAGN400T2 PO (10:24)
[2023-08-02] MEDS ORDERED: METF-877 PO (10:24)
[2023-08-02] MEDS ORDERED: POTA-151 PO (10:24)
[2023-08-02 11:38] VITALS: O2SAT 89
[2023-08-02] MEDS ORDERED: NYST1POW9 TOP (12:36)
[2023-08-02 15:28] VITALS: BP 128/74; TEMP 97.7; O2SAT 91
== END 2023-08-02 15:36 | DRG 291 ==
LOC: M ED 20:33 → M ED INP 23:29 → ENRESERV 07-23 00:32 → M PCU 07-23 01:32 → M MSPAV 07-25 18:16
PROVIDERS: ADMIT Internal Medicine; ATTEND Internal Medicine
DX: I13.0 Hypertensive heart and chronic kidney disease with heart failure and stage 1 through stage 4 chronic kidney disease, or unspecified chronic kidney disease (principal); R53.2 Functional quadriplegia; I50.33 Acute on chronic diastolic (congestive) heart failure; E66.2 Morbid (severe) obesity with alveolar hypoventilation; J96.11 Chronic respiratory failure with hypoxia; J96.12 Chronic respiratory failure with hypercapnia; M46.27 Osteomyelitis of vertebra, lumbosacral region; E87.20 Acidosis, unspecified; N17.9 Acute kidney failure, unspecified; G93.40 Encephalopathy, unspecified; Z68.43 Body mass index [BMI] 50.0-59.9, adult; G62.81 Critical illness polyneuropathy; J44.9 Chronic obstructive pulmonary disease, unspecified; E11.22 Type 2 diabetes mellitus with diabetic chronic kidney disease; E78.5 Hyperlipidemia, unspecified; N18.30 Chronic kidney disease, stage 3 unspecified; G25.3 Myoclonus; E11.69 Type 2 diabetes mellitus with other specified complication; G25.81 Restless legs syndrome; F32.A Depression, unspecified; F41.9 Anxiety disorder, unspecified; K21.9 Gastro-esophageal reflux disease without esophagitis; G89.29 Other chronic pain; E83.42 Hypomagnesemia; G43.909 Migraine, unspecified, not intractable, without status migrainosus; I27.20 Pulmonary hypertension, unspecified; I27.81 Cor pulmonale (chronic); M54.50 Low back pain, unspecified; E87.6 Hypokalemia; D53.9 Nutritional anemia, unspecified; R32 Unspecified urinary incontinence; Z86.711 Personal history of pulmonary embolism; Z85.118 Personal history of other malignant neoplasm of bronchus and lung; Z87.891 Personal history of nicotine dependence; Z79.01 Long term (current) use of anticoagulants; Z79.84 Long term (current) use of oral hypoglycemic drugs; Z79.891 Long term (current) use of opiate analgesic; Z79.899 Other long term (current) drug therapy; Z88.8 Allergy status to other drugs, medicaments and biological substances; Z99.3 Dependence on wheelchair; Z90.2 Acquired absence of lung [part of]; Z99.81 Dependence on supplemental oxygen

== ENCOUNTER 2023-08-06 11:48 | Inpatient (IN) | payer MEDICARE, BC ==
[~2023-08-06] VITALS: Ht 157.5 cm; Wt 126.7 kg
[~2023-08-06 11:48] MED LIST changes: -FLUT1BLS8 IH; +METF-877 PO; +NYST1POW9 TOP
[2023-08-06 12:49] LABS: BASO # 0.1 10^3/uL (0.0-0.2); BASO % 0.5 % (0.0-1.0); EOS # 0.8 10^3/uL (0.0-0.5); EOS % 7.1 % (0.0-3.0); HEMATOCRIT 27.5 % (36.0-47.0); HEMOGLOBIN 8.2 g/dl (12.0-15.5); LYMPH # 1.2 10^3/uL (1.5-5.0); LYMPH % 10.5 % (24.0-44.0); MEAN CORPUSCULAR HEMOGLOBIN 27.9 pg (27.0-33.0); MEAN CORPUSCULAR HGB CONC 29.8 g/dl (32.0-36.5); MEAN CORPUSCULAR VOLUME 93.5 fl (80.0-96.0); MONO # 1.1 10^3/uL (0.0-0.8); MONO % 10.3 % (2.0-8.0); NEUTROPHILS # 7.7 10^3/uL (1.5-8.5); NEUTROPHILS % 69.3 % (36.0-66.0); PLATELET COUNT, AUTOMATED 312 10^3/uL (150-450); RED BLOOD COUNT 2.94 10^6/uL (4.00-5.40); WHITE BLOOD COUNT 11.1 10^3/uL (4.0-10.0)
[2023-08-06 12:55] LABS: CK-MB VALUE MASS 1.6 NG/ML (<3.6)
[2023-08-06 13:00] LABS: LIPASE 36 U/L (12-53)
[2023-08-06 13:02] LABS: ALBUMIN 3.1 G/DL (3.2-5.2); ALKALINE PHOSPHATASE 94 U/L (46-116); ALT/SGPT 29 U/L (7.0-40); AST/SGOT 21 U/L (<34); BILIRUBIN,DIRECT < 0.1 MG/DL (<0.4); BILIRUBIN,TOTAL 0.2 MG/DL (0.3-1.2); BLOOD UREA NITROGEN 43 MG/DL (9-23); CALCIUM LEVEL 9.4 MG/DL (8.3-10.6); CARBON DIOXIDE LEVEL 30 MMOL/L (20-31); CHLORIDE LEVEL 98 MMOL/L (98-107); CPK CREATINE PHOSPHOKINASE 165 U/L (34-145); CREATININE FOR GFR 2.56 MG/DL (0.55-1.30); GLOMERULAR FILTRATION RATE 19.6 (>39); GLUCOSE, FASTING 98 MG/DL (74-106); MB/CK RELATIVE INDEX 0.96 (< OR =4); POTASSIUM SERUM 4.6 MMOL/L (3.5-5.1); SODIUM LEVEL 133 MMOL/L (136-145); TOTAL PROTEIN 6.2 G/DL (5.7-8.2)
[2023-08-06 13:17] LABS: INR 1.35; PARTIAL THROMBOPLASTIN TIME 31.8 SECONDS (24.8-34.2); PROTHROMBIN TIME 16.2 SECONDS (12.5-14.5)
[2023-08-06 13:23] LABS: VENOUS BASE EXCESS 1.6 (-2.0-2.0); VENOUS HCO3 28.6 MMOL/L (23.0-27.0); VENOUS PARTIAL PRESSURE CO2 58.6 mmHg (38.0-50.0); VENOUS PH 7.307 UNITS (7.330-7.430); VENOUS STANDARD HCO3 25.9 MMOL/L; VENOUS TOTAL CO2 30.4 MMOL/L (24.0-28.0)
[2023-08-06] MEDS: NS 1,000 ML IV ONE (13:48)
[2023-08-06] MEDS: LIDOCAINE 2% 5ML JELLY UROJET TOP ONE (14:50)
[2023-08-06 14:52] LABS: CK-MB VALUE MASS 1.7 NG/ML (<3.6)
[2023-08-06 14:53] LABS: MB/CK RELATIVE INDEX 1.07 (< OR =4)
[2023-08-06] MEDS ORDERED: MED REC IN PROGRESS XX SCH (15:00)
[2023-08-06] MEDS ORDERED: METF500T13 PO (15:03)
[2023-08-06] MEDS ORDERED: POLY17PO18 PO (15:03)
[2023-08-06] MEDS ORDERED: SENN-193 PO (15:03)
[2023-08-06] MEDS ORDERED: NYST1POW9 TOP (15:03)
[2023-08-06] MEDS ORDERED: HOME MED LIST COMPLETE! XX SCH (15:05)
[2023-08-06] MEDS: ERTAPENEM SODIUM 1 GM in NS MINI-BAG PLUS 50 ML IV ONE (15:48)
[2023-08-06 16:14] LABS: ABG BASE EXCESS -0.4 (-2.0-2.0)
[2023-08-06 16:15] LABS: ABG HCO3 27.2 MMOL/L (22.0-26.0); ABG O2 SATURATION 96.8 % (95.0-99.0); ABG PARTIAL PRESSURE O2 92.5 mmHg (75.0-100.0); ABG STANDARD HCO3 24.1 MMOL/L. (22.0-26.0); ABG TOTAL CO2 29.2 MMOL/L (23.0-31.0); ABG pH (ARTERIAL) 7.253 UNITS (7.350-7.450)
[2023-08-06 16:18] LABS: ABG PARTIAL PRESSURE CO2 63.1 mmHg (35.0-45.0)
[2023-08-06] MEDS ORDERED: GLUCAGON INJ 1MG VIAL SC PRN (17:10)
[2023-08-06] MEDS ORDERED: MIRALAX *UNIT DOSE* 17GM PACKET PO PRN (17:10)
[2023-08-06] MEDS ORDERED: GLUCOSE 4GM CHEW TABLET PO PRN (17:10)
[2023-08-06] MEDS ORDERED: MOM 30ML SUSPENSION UDC PO PRN (17:10)
[2023-08-06] MEDS ORDERED: ALBUTEROL SULFATE 2.5MG/0.5ML INH NEB SOLN INH PRN (17:10)
[2023-08-06] MEDS ORDERED: DEXTROSE 50% 50ML SYRINGE IV PRN (17:10)
[2023-08-06 18:30] VITALS: BP 118/55; TEMP 97.8; O2SAT 95
[2023-08-06] MEDS: INSULIN LISPRO (NovoLOG) PER UNIT SC SCH ×2 (18:45→21:00)
[2023-08-06 20:33] VITALS: O2SAT 94
[2023-08-06] MEDS: LATANOPROST 0.005% OPHTH SOLN 2.5 ML OU SCH (21:00)
[2023-08-06] MEDS: OLANZapine 5 MG TAB PO SCH (21:00)
[2023-08-06 21:18] LABS: ABG BASE EXCESS 1.8 (-2.0-2.0); ABG O2 SATURATION 98.8 % (95.0-99.0); ABG PARTIAL PRESSURE O2 135.6 mmHg (75.0-100.0); ABG STANDARD HCO3 26.1 MMOL/L. (22.0-26.0); ABG TOTAL CO2 30.9 MMOL/L (23.0-31.0); ABG pH (ARTERIAL) 7.294 UNITS (7.350-7.450)
[2023-08-06] MEDS: ADVAIR HFA 230/21MCG INHALER INH SCH (21:18)
[2023-08-06 21:19] VITALS: O2SAT 97
[2023-08-06 21:19] LABS: ABG PARTIAL PRESSURE CO2 61.2 mmHg (35.0-45.0)
[2023-08-06] MEDS: zolPIDEM TARTRATE 5 MG TAB PO PRN (21:28)
[2023-08-06] MEDS: SENNA 8.6 MG TAB (SENOKOT) PO SCH (21:28)
[2023-08-06] MEDS: LACTOBACILLUS ACIDOPHILUS CAP (BACID) PO SCH (21:28)
[2023-08-06] MEDS: ACETAMINOPHEN TAB 650MG DOSE (2X325MG) PO PRN (21:28)
[2023-08-06] MEDS: APIXABAN 5 MG TAB (ELIQUIS) PO SCH (21:28)
[2023-08-06] MEDS: DOCUSATE SODIUM 100MG CAPSULE PO SCH (21:29)
[2023-08-06 22:13] VITALS: O2SAT 90
[2023-08-06 23:24] VITALS: BP 100/50; TEMP 97.5; O2SAT 91
[2023-08-07] VITALS (27 sets, daily range): BP systolic 104–131; BP diastolic 51–62; TEMP 97–97.7; O2SAT 88–100
[2023-08-07 05:41] LABS: HEMOGLOBIN 7.5 g/dl (12.0-15.5); MEAN CORPUSCULAR HEMOGLOBIN 28.1 pg (27.0-33.0); MEAN CORPUSCULAR VOLUME 93.6 fl (80.0-96.0); PLATELET COUNT, AUTOMATED 267 10^3/uL (150-450); RED BLOOD COUNT 2.67 10^6/uL (4.00-5.40); WHITE BLOOD COUNT 8.6 10^3/uL (4.0-10.0)
[2023-08-07 06:08] LABS: CALCIUM LEVEL 8.8 MG/DL (8.3-10.6); CREATININE FOR GFR 1.79 MG/DL (0.55-1.30); GLOMERULAR FILTRATION RATE 29.6 (>39); POTASSIUM SERUM 4.2 MMOL/L (3.5-5.1)
[2023-08-07 08:34] LABS: ABG BASE EXCESS 1.9 (-2.0-2.0); ABG HCO3 29.1 MMOL/L (22.0-26.0); ABG O2 SATURATION 98.1 % (95.0-99.0); ABG PARTIAL PRESSURE CO2 61.8 mmHg (35.0-45.0); ABG PARTIAL PRESSURE O2 127.9 mmHg (75.0-100.0); ABG STANDARD HCO3 26.2 MMOL/L. (22.0-26.0); ABG pH (ARTERIAL) 7.291 UNITS (7.350-7.450)
[2023-08-07] MEDS: CEFDINIR 300 MG CAP (OMNICEF) PO SCH ×2 (09:47→20:24)
[2023-08-07] MEDS: oxyBUTYnin *DITROPAN XL* 5 MG TABCR PO SCH (09:48)
[2023-08-07] MEDS: PANTOPRAZOLE 40MG TAB (PROTONIX) PO SCH (09:48)
[2023-08-07] MEDS: ATORVASTATIN 20 MG TAB PO SCH (09:48)
[2023-08-07] MEDS: PERCOCET 5MG/325MG TAB PO PRN (15:19)
[2023-08-07] MEDS ORDERED: GABAPENTIN 100 MG CAP PO SCH (16:00)
[2023-08-07] MEDS: ERTAPENEM SODIUM 1 GM in NS MINI-BAG PLUS 50 ML IV SCH (16:39)
[2023-08-08] VITALS (15 sets, daily range): BP systolic 102–125; BP diastolic 56–64; TEMP 97.1–98.1; O2SAT 92–99
[2023-08-08 05:46] LABS: BASO # 0.1 10^3/uL (0.0-0.2); BASO % 0.6 % (0.0-1.0); EOS # 0.5 10^3/uL (0.0-0.5); EOS % 5.5 % (0.0-3.0); HEMATOCRIT 27.5 % (36.0-47.0); HEMOGLOBIN 8.1 g/dl (12.0-15.5); LYMPH # 1.4 10^3/uL (1.5-5.0); LYMPH % 13.8 % (24.0-44.0); MEAN CORPUSCULAR HEMOGLOBIN 28.4 pg (27.0-33.0); MEAN CORPUSCULAR HGB CONC 29.5 g/dl (32.0-36.5); MEAN CORPUSCULAR VOLUME 96.5 fl (80.0-96.0); MONO # 1.1 10^3/uL (0.0-0.8); MONO % 11.3 % (2.0-8.0); NEUTROPHILS # 6.5 10^3/uL (1.5-8.5); NEUTROPHILS % 66.1 % (36.0-66.0); PLATELET COUNT, AUTOMATED 249 10^3/uL (150-450); RED BLOOD COUNT 2.85 10^6/uL (4.00-5.40); WHITE BLOOD COUNT 9.8 10^3/uL (4.0-10.0)
[2023-08-08 06:08] LABS: CALCIUM LEVEL 8.5 MG/DL (8.3-10.6); CREATININE FOR GFR 1.05 MG/DL (0.55-1.30); GLOMERULAR FILTRATION RATE 54.8 (>39); POTASSIUM SERUM 4.2 MMOL/L (3.5-5.1)
[2023-08-08] MEDS: SPIRONOLACTONE 50 MG TAB PO SCH (09:00)
[2023-08-08] MEDS: TORSEMIDE 20 MG TAB PO SCH (09:00)
[2023-08-08] MEDS: GABAPENTIN 100 MG CAP PO SCH (09:48)
[2023-08-08] MEDS: LIFITEGRAST 5% OU SCH (09:49)
[2023-08-08] MEDS: BACTRIM 160MG/800MG DS TAB PO SCH (21:25)
[2023-08-09] VITALS (8 sets, daily range): BP systolic 102–117; BP diastolic 56–69; TEMP 97.5–98.1; O2SAT 91–95
[2023-08-09 06:24] LABS: HEMOGLOBIN 8.1 g/dl (12.0-15.5); MEAN CORPUSCULAR HEMOGLOBIN 27.8 pg (27.0-33.0); MEAN CORPUSCULAR VOLUME 92.8 fl (80.0-96.0); PLATELET COUNT, AUTOMATED 312 10^3/uL (150-450); RED BLOOD COUNT 2.91 10^6/uL (4.00-5.40); WHITE BLOOD COUNT 11.4 10^3/uL (4.0-10.0)
[2023-08-09 06:47] LABS: CALCIUM LEVEL 8.5 MG/DL (8.3-10.6); CREATININE FOR GFR 1.02 MG/DL (0.55-1.30); GLOMERULAR FILTRATION RATE 56.7 (>39)
[2023-08-10] VITALS (13 sets, daily range): BP systolic 94–130; BP diastolic 52–60; TEMP 97.5–98.4; O2SAT 90–95
[2023-08-10 08:17] LABS: BASO # 0.1 10^3/uL (0.0-0.2); BASO % 0.6 % (0.0-1.0); EOS # 0.6 10^3/uL (0.0-0.5); EOS % 4.5 % (0.0-3.0); HEMATOCRIT 28.3 % (36.0-47.0); HEMOGLOBIN 8.7 g/dl (12.0-15.5); LYMPH # 1.9 10^3/uL (1.5-5.0); LYMPH % 15.1 % (24.0-44.0); MEAN CORPUSCULAR HGB CONC 30.7 g/dl (32.0-36.5); MONO # 1.1 10^3/uL (0.0-0.8); MONO % 8.6 % (2.0-8.0); NEUTROPHILS # 8.5 10^3/uL (1.5-8.5); NEUTROPHILS % 67.8 % (36.0-66.0); PLATELET COUNT, AUTOMATED 271 10^3/uL (150-450); RED BLOOD COUNT 3.11 10^6/uL (4.00-5.40); WHITE BLOOD COUNT 12.5 10^3/uL (4.0-10.0)
[2023-08-10] MEDS ORDERED: LevoFLOXacin 500 MG TABLET PO ONE (16:35)
[2023-08-10] MEDS: LevoFLOXacin 750 MG TABLET PO SCH (17:29)
[2023-08-11] VITALS (10 sets, daily range): BP systolic 111–148; BP diastolic 59–78; TEMP 97.3–98.4; O2SAT 90–95
[2023-08-11 06:19] LABS: BASO # 0.1 10^3/uL (0.0-0.2); BASO % 0.5 % (0.0-1.0); EOS # 0.4 10^3/uL (0.0-0.5); EOS % 4.2 % (0.0-3.0); HEMATOCRIT 26.7 % (36.0-47.0); HEMOGLOBIN 8.1 g/dl (12.0-15.5); LYMPH # 1.5 10^3/uL (1.5-5.0); LYMPH % 14.7 % (24.0-44.0); MEAN CORPUSCULAR HEMOGLOBIN 27.6 pg (27.0-33.0); MEAN CORPUSCULAR HGB CONC 30.3 g/dl (32.0-36.5); MEAN CORPUSCULAR VOLUME 91.1 fl (80.0-96.0); MONO % 9.9 % (2.0-8.0); NEUTROPHILS % 67.1 % (36.0-66.0); PLATELET COUNT, AUTOMATED 279 10^3/uL (150-450); RED BLOOD COUNT 2.93 10^6/uL (4.00-5.40); WHITE BLOOD COUNT 10.4 10^3/uL (4.0-10.0)
[2023-08-11 06:41] LABS: CALCIUM LEVEL 8.2 MG/DL (8.3-10.6); CREATININE FOR GFR 1.23 MG/DL (0.55-1.30); GLOMERULAR FILTRATION RATE 45.7 (>39); MAGNESIUM LEVEL 1.2 MG/DL (1.8-2.4); POTASSIUM SERUM 3.4 MMOL/L (3.5-5.1)
[2023-08-11] MEDS: MAGNESIUM OXIDE 400MG TAB (MAG-OX) PO SCH (10:53)
[2023-08-11] MEDS: MAG SULF 1GM/100ML (MAG RUN) 1 GM in IV 1 EA IV SCH (11:02)
[2023-08-11] MEDS ORDERED: KCL 10MEQ IN STERILE WATER 100ML As Ordered ONE (14:09)
[2023-08-11] MEDS: KCL 10MEQ/100ML SWI (KRUN) 10 MEQ in IV 1 EA IV SCH (14:19)
[2023-08-12] VITALS (8 sets, daily range): BP systolic 107–118; BP diastolic 54–62; TEMP 97.1–99; O2SAT 91–96
[2023-08-12 06:51] LABS: BASO # 0.1 10^3/uL (0.0-0.2); BASO % 0.7 % (0.0-1.0); EOS # 0.5 10^3/uL (0.0-0.5); EOS % 4.9 % (0.0-3.0); HEMATOCRIT 27.2 % (36.0-47.0); HEMOGLOBIN 8.3 g/dl (12.0-15.5); LYMPH # 1.4 10^3/uL (1.5-5.0); LYMPH % 14.2 % (24.0-44.0); MEAN CORPUSCULAR HEMOGLOBIN 27.7 pg (27.0-33.0); MEAN CORPUSCULAR HGB CONC 30.5 g/dl (32.0-36.5); MEAN CORPUSCULAR VOLUME 90.7 fl (80.0-96.0); MONO % 9.9 % (2.0-8.0); NEUTROPHILS # 6.7 10^3/uL (1.5-8.5); NEUTROPHILS % 68.4 % (36.0-66.0); PLATELET COUNT, AUTOMATED 268 10^3/uL (150-450); WHITE BLOOD COUNT 9.8 10^3/uL (4.0-10.0)
[2023-08-12 07:07] LABS: MAGNESIUM LEVEL 2.1 MG/DL (1.8-2.4)
[2023-08-12 07:57] LABS: CALCIUM LEVEL 8.5 MG/DL (8.3-10.6); CREATININE FOR GFR 1.13 MG/DL (0.55-1.30); GLOMERULAR FILTRATION RATE 50.4 (>39); POTASSIUM SERUM 3.4 MMOL/L (3.5-5.1)
[2023-08-12] MEDS: MAGNESIUM OXIDE 400MG TAB (MAG-OX) PO SCH (08:16)
[2023-08-12] MEDS ORDERED: LevoFLOXacin 250 MG TABLET PO SCH (09:00)
[2023-08-12] MEDS: POTASSIUM CHLORIDE 10MEQ SR TABLET PO SCH (12:43)
[2023-08-12] MEDS: CARBAMIDE PEROXIDE 6.5% OTIC SOLN 15ML AU SCH (14:04)
[2023-08-13 06:00] VITALS: TEMP 96.8; O2SAT 94
[2023-08-13 07:19] LABS: BLOOD UREA NITROGEN 12 MG/DL (9-23); CARBON DIOXIDE LEVEL 29 MMOL/L (20-31); CHLORIDE LEVEL 104 MMOL/L (98-107); CREATININE FOR GFR 0.92 MG/DL (0.55-1.30); GLOMERULAR FILTRATION RATE > 60.0 (>39); GLUCOSE, FASTING 111 MG/DL (74-106); MAGNESIUM LEVEL 1.8 MG/DL (1.8-2.4); POTASSIUM SERUM 3.7 MMOL/L (3.5-5.1); SODIUM LEVEL 138 MMOL/L (136-145)
[2023-08-13 09:00] VITALS: O2SAT 96
[2023-08-13 09:35] VITALS: BP 131/68; TEMP 97.9; O2SAT 96
[2023-08-13 14:00] VITALS: BP 128/63; TEMP 97.9; O2SAT 94
[2023-08-13 18:00] VITALS: BP 130/63; TEMP 98.4; O2SAT 93
[2023-08-13 22:00] VITALS: BP 112/53; TEMP 97.3; O2SAT 95
[2023-08-14] VITALS (8 sets, daily range): BP systolic 102–127; BP diastolic 61–71; TEMP 97.5–98.5; O2SAT 91–95
[2023-08-14 06:52] LABS: BLOOD UREA NITROGEN 12 MG/DL (9-23); CALCIUM LEVEL 8.9 MG/DL (8.3-10.6); CARBON DIOXIDE LEVEL 28 MMOL/L (20-31); CHLORIDE LEVEL 104 MMOL/L (98-107); CREATININE FOR GFR 0.96 MG/DL (0.55-1.30); GLOMERULAR FILTRATION RATE > 60.0 (>39); GLUCOSE, FASTING 107 MG/DL (74-106); MAGNESIUM LEVEL 1.7 MG/DL (1.8-2.4); POTASSIUM SERUM 4.5 MMOL/L (3.5-5.1); SODIUM LEVEL 138 MMOL/L (136-145)
[2023-08-14] MEDS: PERCOCET 5MG/325MG TAB PO PRN (10:21)
[2023-08-14] MEDS: MAG SULF 1GM/100ML (MAG RUN) 1 GM in IV 1 EA IV ONE (15:40)
[2023-08-14] MEDS: MAGNESIUM OXIDE 400MG TAB (MAG-OX) PO SCH (20:38)
[2023-08-14] MEDS: CEFDINIR 300 MG CAP (OMNICEF) PO SCH (20:38)
[2023-08-15 02:00] VITALS: BP 121/68; TEMP 97.5; O2SAT 88
[2023-08-15 06:00] VITALS: BP 111/62; TEMP 97.3; O2SAT 92
[2023-08-15 06:45] LABS: BASO # 0.1 10^3/uL (0.0-0.2); BASO % 0.8 % (0.0-1.0); EOS # 0.6 10^3/uL (0.0-0.5); EOS % 5.8 % (0.0-3.0); HEMATOCRIT 27.7 % (36.0-47.0); HEMOGLOBIN 8.2 g/dl (12.0-15.5); LYMPH # 1.7 10^3/uL (1.5-5.0); LYMPH % 15.6 % (24.0-44.0); MEAN CORPUSCULAR HEMOGLOBIN 27.3 pg (27.0-33.0); MEAN CORPUSCULAR HGB CONC 29.6 g/dl (32.0-36.5); MEAN CORPUSCULAR VOLUME 92.3 fl (80.0-96.0); MONO # 0.9 10^3/uL (0.0-0.8); MONO % 8.2 % (2.0-8.0); NEUTROPHILS # 7.2 10^3/uL (1.5-8.5); PLATELET COUNT, AUTOMATED 259 10^3/uL (150-450); WHITE BLOOD COUNT 10.6 10^3/uL (4.0-10.0)
[2023-08-15 07:29] LABS: BLOOD UREA NITROGEN 14 MG/DL (9-23); CALCIUM LEVEL 8.9 MG/DL (8.3-10.6); CARBON DIOXIDE LEVEL 29 MMOL/L (20-31); CHLORIDE LEVEL 107 MMOL/L (98-107); CREATININE FOR GFR 0.97 MG/DL (0.55-1.30); GLOMERULAR FILTRATION RATE > 60.0 (>39); GLUCOSE, FASTING 100 MG/DL (74-106); MAGNESIUM LEVEL 1.8 MG/DL (1.8-2.4); POTASSIUM SERUM 4.1 MMOL/L (3.5-5.1); SODIUM LEVEL 141 MMOL/L (136-145)
[2023-08-15 08:16] VITALS: O2SAT 94
[2023-08-15 14:00] VITALS: BP 117/60; TEMP 97.7; O2SAT 95
[2023-08-15 20:25] VITALS: O2SAT 94
[2023-08-15 22:00] VITALS: BP 111/60; TEMP 97.9; O2SAT 96
[2023-08-16] VITALS (7 sets, daily range): BP systolic 102–124; BP diastolic 54–70; TEMP 97.7–98.6; O2SAT 90–96
[2023-08-16 06:30] LABS: BASO # 0.1 10^3/uL (0.0-0.2); BASO % 0.5 % (0.0-1.0); EOS # 0.6 10^3/uL (0.0-0.5); EOS % 4.7 % (0.0-3.0); HEMATOCRIT 27.4 % (36.0-47.0); HEMOGLOBIN 8.2 g/dl (12.0-15.5); LYMPH # 1.5 10^3/uL (1.5-5.0); LYMPH % 11.6 % (24.0-44.0); MEAN CORPUSCULAR HEMOGLOBIN 27.2 pg (27.0-33.0); MEAN CORPUSCULAR HGB CONC 29.9 g/dl (32.0-36.5); MONO % 8.2 % (2.0-8.0); NEUTROPHILS # 9.4 10^3/uL (1.5-8.5); PLATELET COUNT, AUTOMATED 268 10^3/uL (150-450); RED BLOOD COUNT 3.01 10^6/uL (4.00-5.40); WHITE BLOOD COUNT 12.7 10^3/uL (4.0-10.0)
[2023-08-16 06:54] LABS: CALCIUM LEVEL 8.8 MG/DL (8.3-10.6); CREATININE FOR GFR 1.1 MG/DL (0.55-1.30); MAGNESIUM LEVEL 1.7 MG/DL (1.8-2.4); POTASSIUM SERUM 3.7 MMOL/L (3.5-5.1)
[2023-08-16] MEDS: BACTRIM 160MG/800MG DS TAB PO SCH (21:09)
[2023-08-17 06:00] VITALS: BP 119/51; TEMP 96.8; O2SAT 95
[2023-08-17 07:24] LABS: HEMATOCRIT 27.6 % (36.0-47.0); HEMOGLOBIN 8.4 g/dl (12.0-15.5); MEAN CORPUSCULAR HEMOGLOBIN 27.4 pg (27.0-33.0); MEAN CORPUSCULAR HGB CONC 30.4 g/dl (32.0-36.5); MEAN CORPUSCULAR VOLUME 89.9 fl (80.0-96.0); PLATELET COUNT, AUTOMATED 243 10^3/uL (150-450); RED BLOOD COUNT 3.07 10^6/uL (4.00-5.40); WHITE BLOOD COUNT 12.9 10^3/uL (4.0-10.0)
[2023-08-18 04:19] VITALS: BP 115/51; TEMP 97.5; O2SAT 91
[2023-08-18 08:09] VITALS: BP 119/63
[2023-08-18] MEDS ORDERED: GABA-1171 PO (08:27)
[2023-08-18] MEDS ORDERED: BACTDSTA PO (08:27)
[2023-08-18] MEDS ORDERED: MAGN400T2 PO (08:27)
== END 2023-08-18 13:24 | DRG 682 ==
LOC: EDBD 11:48 → M ED 11:48 → M ED INP 17:08 → ENRESERV 17:21 → M PCU 18:09 → M MSPAV 08-08 13:38
PROVIDERS: ADMIT Student in an Organized Health Care Education/Training Program; ATTEND Student in an Organized Health Care Education/Training Program
DX: N17.9 Acute kidney failure, unspecified (principal); R53.2 Functional quadriplegia; G93.41 Metabolic encephalopathy; E66.2 Morbid (severe) obesity with alveolar hypoventilation; I13.0 Hypertensive heart and chronic kidney disease with heart failure and stage 1 through stage 4 chronic kidney disease, or unspecified chronic kidney disease; I50.32 Chronic diastolic (congestive) heart failure; J96.12 Chronic respiratory failure with hypercapnia; N39.0 Urinary tract infection, site not specified; E87.29 Other acidosis; Z68.43 Body mass index [BMI] 50.0-59.9, adult; L97.918 Non-pressure chronic ulcer of unspecified part of right lower leg with other specified severity; L97.928 Non-pressure chronic ulcer of unspecified part of left lower leg with other specified severity; M46.26 Osteomyelitis of vertebra, lumbar region; J44.9 Chronic obstructive pulmonary disease, unspecified; E78.5 Hyperlipidemia, unspecified; E11.22 Type 2 diabetes mellitus with diabetic chronic kidney disease; G25.3 Myoclonus; N13.9 Obstructive and reflux uropathy, unspecified; H40.9 Unspecified glaucoma; M54.50 Low back pain, unspecified; G89.29 Other chronic pain; N18.30 Chronic kidney disease, stage 3 unspecified; G25.81 Restless legs syndrome; I27.29 Other secondary pulmonary hypertension; F41.9 Anxiety disorder, unspecified; E11.628 Type 2 diabetes mellitus with other skin complications; E11.69 Type 2 diabetes mellitus with other specified complication; D50.9 Iron deficiency anemia, unspecified; I89.0 Lymphedema, not elsewhere classified; E87.6 Hypokalemia; F32.A Depression, unspecified; B96.20 Unspecified Escherichia coli [E. coli] as the cause of diseases classified elsewhere; K21.9 Gastro-esophageal reflux disease without esophagitis; G43.909 Migraine, unspecified, not intractable, without status migrainosus; Z99.3 Dependence on wheelchair; Z99.81 Dependence on supplemental oxygen; Z85.118 Personal history of other malignant neoplasm of bronchus and lung; Z90.2 Acquired absence of lung [part of]; Z79.891 Long term (current) use of opiate analgesic; Z86.711 Personal history of pulmonary embolism; Z90.49 Acquired absence of other specified parts of digestive tract; Z79.01 Long term (current) use of anticoagulants; Z79.84 Long term (current) use of oral hypoglycemic drugs; Z79.899 Other long term (current) drug therapy; Z11.52 Encounter for screening for COVID-19; Z87.891 Personal history of nicotine dependence

== ENCOUNTER → 2023-09-20 | Outpatient (REF) | payer MEDICARE, BC ==
[~2023-09-20] MED LIST changes: +BACTDSTA PO; +POLY17PO18 PO; +SENN-193 PO
== END ==
LOC: M LAB REF 17:14
PROVIDERS: ATTEND Nurse Practitioner Family
DX: D64.9 Anemia, unspecified (principal)

== ENCOUNTER → 2023-09-26 | Outpatient (REF) | payer MEDICARE, BC ==
[~2023-09-26] MED LIST changes: +ALLO100T PO; +GUAI600T54 PO; +MULT-40 PO; +POTA-298 PO; +PROBCAP14 PO; +VITA500075 PO
[2023-09-26 15:47] LABS: APPEARANCE, URINE CLEAR (CLEAR); BACTERIA, URINE AUTO NEGATIVE (NEGATIVE); BILIRUBIN, URINE AUTO NEGATIVE (NEGATIVE); BLOOD, URINE BLOOD NEGATIVE (NEGATIVE); COLOR, URINE YELLOW (YELLOW); GLUCOSE, URINE (UA) AUTO NEGATIVE (NEGATIVE); KETONE, URINE AUTO NEGATIVE (NEGATIVE); LEUKOCYTE ESTERASE, URINE AUTO 2+ (NEGATIVE); MUCUS, URINE SMALL (NEGATIVE); NITRITE, URINE AUTO NEGATIVE (NEGATIVE); PROTEIN, URINE AUTO NEGATIVE (NEGATIVE); RBC, URINE AUTO 1 /HPF (0-3); SPECIFIC GRAVITY URINE AUTO 1.014 (1.002-1.035); SQUAMOUS EPITHELIAL CELL UR AU 4 /HPF (0-6); TRANSITIONAL EPITHELIAL AUTO 1 /HPF; UROBILINOGEN, URINE AUTO 0.2 mg/dL (0.0-2.0); WBC, URINE AUTO 20 /HPF (0-3)
== END ==
LOC: M SFHCPLAZ 14:53
PROVIDERS: ATTEND Internal Medicine Infectious Disease
DX: R10.9 Unspecified abdominal pain (principal)

== ENCOUNTER 2023-10-03 12:33 | Emergency (ER) | payer MEDICARE, BC ==
[~2023-10-03] VITALS: Ht 152.4 cm; Wt 116.4 kg
[~2023-10-03 12:33] MED LIST changes: -ALLO100T PO; -GUAI600T54 PO; -MULT-40 PO; -POTA-298 PO; -PROBCAP14 PO; -VITA500075 PO
[2023-10-03 12:34] VITALS: BP 180/100; TEMP 97.3; O2SAT 98
[2023-10-04] MEDS ORDERED: VITA500075 PO (14:01)
[2023-10-04] MEDS ORDERED: ALLO100T PO (14:01)
[2023-10-04] MEDS ORDERED: MAGN400T2 PO (14:01)
[2023-10-04] MEDS ORDERED: SUMA100T2 PO (14:01)
[2023-10-04] MEDS ORDERED: POTA-298 PO (14:01)
[2023-10-04] MEDS ORDERED: ONDA-84 PO (14:01)
[2023-10-04] MEDS ORDERED: GUAI600T54 PO (14:01)
[2023-10-04] MEDS ORDERED: PROBCAP14 PO (14:01)
[2023-10-04] MEDS ORDERED: MULT-40 PO (14:01)
== END 2023-10-03 16:14 | disposition left against medical advice (07) ==
LOC: M ED 12:33
DX: Z53.21 Procedure and treatment not carried out due to patient leaving prior to being seen by health care provider (principal)

== ENCOUNTER 2023-10-04 07:53 | Inpatient (IN) | payer MEDICARE, BC ==
[~2023-10-04] VITALS: Ht 160 cm; Wt 116.8 kg
[2023-10-04] MEDS: LIDOCAINE 2% 5ML JELLY UROJET TOP ONE (08:10)
[2023-10-04 10:09] LABS: BASO # 0.1 10^3/uL (0.0-0.2); BASO % 0.5 % (0.0-1.0); EOS # 0.3 10^3/uL (0.0-0.5); EOS % 2.2 % (0.0-3.0); HEMATOCRIT 31.8 % (36.0-47.0); HEMOGLOBIN 9.5 g/dl (12.0-15.5); LYMPH # 1.4 10^3/uL (1.5-5.0); LYMPH % 11.3 % (24.0-44.0); MEAN CORPUSCULAR HEMOGLOBIN 27.3 pg (27.0-33.0); MEAN CORPUSCULAR HGB CONC 29.9 g/dl (32.0-36.5); MEAN CORPUSCULAR VOLUME 91.4 fl (80.0-96.0); MONO # 0.9 10^3/uL (0.0-0.8); MONO % 7.6 % (2.0-8.0); NEUTROPHILS # 9.5 10^3/uL (1.5-8.5); NEUTROPHILS % 76.9 % (36.0-66.0); PLATELET COUNT, AUTOMATED 304 10^3/uL (150-450); RED BLOOD COUNT 3.48 10^6/uL (4.00-5.40); WHITE BLOOD COUNT 12.4 10^3/uL (4.0-10.0)
[2023-10-04 10:32] LABS: LIPASE 29 U/L (12-53)
[2023-10-04 10:34] LABS: ALBUMIN 2.9 G/DL (3.2-5.2); ALKALINE PHOSPHATASE 74 U/L (46-116); ALT/SGPT 10 U/L (7.0-40); AMYLASE 29 U/L (30-118); AST/SGOT 11 U/L (<34); BILIRUBIN,DIRECT < 0.1 MG/DL (<0.4); BILIRUBIN,TOTAL < 0.2 MG/DL (0.3-1.2); BLOOD UREA NITROGEN 26 MG/DL (9-23); CALCIUM LEVEL 8.5 MG/DL (8.3-10.6); CARBON DIOXIDE LEVEL 31 MMOL/L (20-31); CHLORIDE LEVEL 101 MMOL/L (98-107); CREATININE FOR GFR 1.94 MG/DL (0.55-1.30); GLUCOSE, FASTING 76 MG/DL (74-106); POTASSIUM SERUM 3.7 MMOL/L (3.5-5.1); SODIUM LEVEL 139 MMOL/L (136-145); TOTAL PROTEIN 6.1 G/DL (5.7-8.2)
[2023-10-04] MEDS: NS 1,000 ML IV ONE (10:46)
[2023-10-04] MEDS: MEROPENEM INJ 1 GM in IV 1 EA IV ONE (10:47)
[2023-10-04] MEDS ORDERED: GLUCAGON INJ 1MG VIAL SC PRN (11:30)
[2023-10-04] MEDS ORDERED: MEROPENEM INJ 1 GM in IV 1 EA IV ONE (11:30)
[2023-10-04] MEDS ORDERED: GLUCOSE 4 GM CHEW PO PRN (11:30)
[2023-10-04] MEDS ORDERED: DEXTROSE 50% 50ML SYRINGE IV PRN (11:30)
[2023-10-04] MEDS: INSULIN LISPRO (NovoLOG) PER UNIT SC SCH ×2 (12:00→20:58)
[2023-10-04] MEDS ORDERED: POTA-298 PO (14:01)
[2023-10-04] MEDS ORDERED: MAGN400T2 PO (14:01)
[2023-10-04] MEDS ORDERED: ONDA-84 PO (14:01)
[2023-10-04] MEDS ORDERED: PROBCAP14 PO (14:01)
[2023-10-04] MEDS ORDERED: MULT-40 PO (14:01)
[2023-10-04] MEDS ORDERED: GUAI600T54 PO (14:01)
[2023-10-04] MEDS ORDERED: ALLO100T PO (14:01)
[2023-10-04] MEDS ORDERED: SUMA100T2 PO (14:01)
[2023-10-04] MEDS ORDERED: VITA500075 PO (14:01)
[2023-10-04] MEDS ORDERED: HOME MED LIST COMPLETE! XX SCH (14:05)
[2023-10-04] MEDS: POTASSIUM CHLORIDE 10MEQ SR TABLET PO SCH (15:34)
[2023-10-04] MEDS: PANTOPRAZOLE 40MG TAB (PROTONIX) PO SCH (15:35)
[2023-10-04] MEDS: GABAPENTIN 100 MG CAP PO SCH (15:35)
[2023-10-04] MEDS: ACETAMINOPHEN TAB 650MG DOSE (2X325MG) PO PRN (15:36)
[2023-10-04] MEDS: ATORVASTATIN 20 MG TAB PO SCH (15:59)
[2023-10-04] MEDS: oxyBUTYnin *DITROPAN XL* 5 MG TABCR PO SCH (15:59)
[2023-10-04] MEDS: MAGNESIUM OXIDE 400MG TAB (MAG-OX) PO SCH (16:00)
[2023-10-04] MEDS: FERROUS SULFATE 325MG TAB PO SCH (16:00)
[2023-10-04] MEDS: allopurinoL 100 MG TAB PO SCH (16:00)
[2023-10-04] MEDS: SPIRONOLACTONE 50 MG TAB PO SCH (16:00)
[2023-10-04 16:15] VITALS: BP 136/63; TEMP 98.8; O2SAT 99
[2023-10-04] MEDS: TORSEMIDE 20 MG TAB PO SCH (17:13)
[2023-10-04] MEDS: ONDANSETRON 4MG TAB PO PRN (18:20)
[2023-10-04] MEDS: PERCOCET 5MG/325MG TAB PO PRN (18:21)
[2023-10-04] MEDS: LATANOPROST 0.005% OPHTH SOLN 2.5 ML OU SCH (20:58)
[2023-10-04] MEDS: OLANZapine 5 MG TAB PO SCH (20:58)
[2023-10-04] MEDS: guaiFENesin ER TABLET 600 MG TAB PO SCH (20:58)
[2023-10-04] MEDS: APIXABAN 5 MG TAB (ELIQUIS) PO SCH (20:59)
[2023-10-04] MEDS ORDERED: ENOXAPARIN 40MG/0.4ML SYRINGE (J1650 PER 10MG) SC SCH (21:00)
[2023-10-04] MEDS: LEVEMIR (INSULIN DETEMIR) 1 UNITS/0.01ML SC SCH (21:00)
[2023-10-04] MEDS ORDERED: TORSEMIDE 20 MG TAB PO SCH (21:00)
[2023-10-04] MEDS: ERTAPENEM SODIUM 1 GM in NS MINI-BAG PLUS 50 ML IV SCH (22:17)
[2023-10-04 23:11] VITALS: BP 114/51; TEMP 97.2; O2SAT 97
[2023-10-05 05:52] VITALS: BP 109/52; TEMP 97.5; O2SAT 92
[2023-10-05 07:15] VITALS: O2SAT 97
[2023-10-05 07:27] LABS: ALBUMIN 2.4 G/DL (3.2-5.2); ALKALINE PHOSPHATASE 66 U/L (46-116); ALT/SGPT < 9 U/L (7.0-40); AST/SGOT 11 U/L (<34); BILIRUBIN,TOTAL < 0.2 MG/DL (0.3-1.2); BLOOD UREA NITROGEN 19 MG/DL (9-23); CALCIUM LEVEL 8.3 MG/DL (8.3-10.6); CARBON DIOXIDE LEVEL 30 MMOL/L (20-31); CHLORIDE LEVEL 106 MMOL/L (98-107); CREATININE FOR GFR 1.23 MG/DL (0.55-1.30); GLOMERULAR FILTRATION RATE 45.7 (>39); GLUCOSE, FASTING 90 MG/DL (74-106); MAGNESIUM LEVEL 1.5 MG/DL (1.8-2.4); POTASSIUM SERUM 3.7 MMOL/L (3.5-5.1); SODIUM LEVEL 143 MMOL/L (136-145); TOTAL PROTEIN 5.3 G/DL (5.7-8.2)
[2023-10-05 09:16] LABS: BASO # 0.1 10^3/uL (0.0-0.2); BASO % 0.7 % (0.0-1.0); EOS # 0.3 10^3/uL (0.0-0.5); EOS % 3.9 % (0.0-3.0); HEMATOCRIT 30.2 % (36.0-47.0); HEMOGLOBIN 9.1 g/dl (12.0-15.5); LYMPH # 1.3 10^3/uL (1.5-5.0); LYMPH % 15.1 % (24.0-44.0); MEAN CORPUSCULAR HEMOGLOBIN 27.4 pg (27.0-33.0); MEAN CORPUSCULAR HGB CONC 30.1 g/dl (32.0-36.5); MONO # 0.7 10^3/uL (0.0-0.8); MONO % 7.6 % (2.0-8.0); NEUTROPHILS # 6.2 10^3/uL (1.5-8.5); NEUTROPHILS % 71.3 % (36.0-66.0); PLATELET COUNT, AUTOMATED 297 10^3/uL (150-450); RED BLOOD COUNT 3.32 10^6/uL (4.00-5.40); WHITE BLOOD COUNT 8.7 10^3/uL (4.0-10.0)
[2023-10-05] MEDS: MAG SULF 1GM/100ML (MAG RUN) 1 GM in IV 1 EA IV SCH (10:05)
[2023-10-05 14:00] VITALS: BP 114/61; TEMP 97.3; O2SAT 98
[2023-10-05 20:00] VITALS: BP 113/51; TEMP 97.5; O2SAT 98
[2023-10-05 22:00] VITALS: O2SAT 98
[2023-10-06 07:45] LABS: BASO # 0.1 10^3/uL (0.0-0.2); BASO % 0.5 % (0.0-1.0); EOS # 0.4 10^3/uL (0.0-0.5); EOS % 3.9 % (0.0-3.0); HEMATOCRIT 31.6 % (36.0-47.0); HEMOGLOBIN 9.4 g/dl (12.0-15.5); LYMPH # 1.5 10^3/uL (1.5-5.0); LYMPH % 15.2 % (24.0-44.0); MEAN CORPUSCULAR HEMOGLOBIN 27.4 pg (27.0-33.0); MEAN CORPUSCULAR HGB CONC 29.7 g/dl (32.0-36.5); MEAN CORPUSCULAR VOLUME 92.1 fl (80.0-96.0); MONO # 0.8 10^3/uL (0.0-0.8); MONO % 8.4 % (2.0-8.0); NEUTROPHILS # 6.9 10^3/uL (1.5-8.5); NEUTROPHILS % 70.7 % (36.0-66.0); PLATELET COUNT, AUTOMATED 279 10^3/uL (150-450); RED BLOOD COUNT 3.43 10^6/uL (4.00-5.40); WHITE BLOOD COUNT 9.7 10^3/uL (4.0-10.0)
[2023-10-06 08:20] LABS: ALBUMIN 2.6 G/DL (3.2-5.2); ALKALINE PHOSPHATASE 70 U/L (46-116); ALT/SGPT 9 U/L (7.0-40); AST/SGOT 10 U/L (<34); BILIRUBIN,TOTAL < 0.2 MG/DL (0.3-1.2); BLOOD UREA NITROGEN 15 MG/DL (9-23); CALCIUM LEVEL 8.8 MG/DL (8.3-10.6); CARBON DIOXIDE LEVEL 33 MMOL/L (20-31); CHLORIDE LEVEL 104 MMOL/L (98-107); CREATININE FOR GFR 0.96 MG/DL (0.55-1.30); GLOMERULAR FILTRATION RATE > 60.0 (>39); GLUCOSE, FASTING 102 MG/DL (74-106); MAGNESIUM LEVEL 1.6 MG/DL (1.8-2.4); POTASSIUM SERUM 3.7 MMOL/L (3.5-5.1); SODIUM LEVEL 142 MMOL/L (136-145); TOTAL PROTEIN 5.7 G/DL (5.7-8.2)
[2023-10-06] MEDS: MAG SULF 1GM/100ML (MAG RUN) 1 GM in IV 1 EA IV ONE (11:07)
[2023-10-06 14:00] VITALS: BP 122/64; TEMP 97.5; O2SAT 96
[2023-10-06] MEDS: SODIUM CHLORIDE 0.9% INJ 10 ML SYR IV SCH (18:57)
[2023-10-06 20:05] VITALS: BP 135/65; TEMP 97.7; O2SAT 95
[2023-10-06 22:00] VITALS: O2SAT 94
[2023-10-07 05:02] VITALS: BP 151/73; TEMP 96.8; O2SAT 92
[2023-10-07 06:50] LABS: HEMATOCRIT 30.4 % (36.0-47.0); HEMOGLOBIN 9.3 g/dl (12.0-15.5); MEAN CORPUSCULAR HEMOGLOBIN 27.8 pg (27.0-33.0); MEAN CORPUSCULAR HGB CONC 30.6 g/dl (32.0-36.5); PLATELET COUNT, AUTOMATED 261 10^3/uL (150-450); RED BLOOD COUNT 3.34 10^6/uL (4.00-5.40)
[2023-10-07 07:25] LABS: BLOOD UREA NITROGEN 13 MG/DL (9-23); CALCIUM LEVEL 8.9 MG/DL (8.3-10.6); CARBON DIOXIDE LEVEL 34 MMOL/L (20-31); CHLORIDE LEVEL 103 MMOL/L (98-107); CREATININE FOR GFR 0.92 MG/DL (0.55-1.30); GLOMERULAR FILTRATION RATE > 60.0 (>39); GLUCOSE, FASTING 94 MG/DL (74-106); MAGNESIUM LEVEL 1.4 MG/DL (1.8-2.4); POTASSIUM SERUM 3.5 MMOL/L (3.5-5.1); SODIUM LEVEL 144 MMOL/L (136-145)
[2023-10-07] MEDS: MAG SULF 1GM/100ML (MAG RUN) 1 GM in IV 1 EA IV SCH (09:12)
[2023-10-07 14:00] VITALS: BP_SYST 119; BP_SYST 179; BP_DIAS 59; BP_DIAS 78; TEMP 97.3; O2SAT 96
[2023-10-07 20:16] VITALS: BP 112/63; TEMP 97.7; O2SAT 95
[2023-10-08 06:00] VITALS: BP 120/64; TEMP 98.1; O2SAT 95
[2023-10-08 07:22] LABS: BLOOD UREA NITROGEN 15 MG/DL (9-23); CALCIUM LEVEL 9.4 MG/DL (8.3-10.6); CARBON DIOXIDE LEVEL 33 MMOL/L (20-31); CHLORIDE LEVEL 99 MMOL/L (98-107); CREATININE FOR GFR 0.89 MG/DL (0.55-1.30); GLOMERULAR FILTRATION RATE > 60.0 (>39); GLUCOSE, FASTING 100 MG/DL (74-106); MAGNESIUM LEVEL 1.6 MG/DL (1.8-2.4); POTASSIUM SERUM 3.8 MMOL/L (3.5-5.1); SODIUM LEVEL 141 MMOL/L (136-145)
[2023-10-08] MEDS: MAG SULF 1GM/100ML (MAG RUN) 1 GM in IV 1 EA IV SCH (09:13)
[2023-10-08 14:00] VITALS: BP 148/86; TEMP 97.5; O2SAT 91
[2023-10-08 22:00] VITALS: BP 123/64; TEMP 97.3; O2SAT 94
[2023-10-09 06:00] VITALS: BP 117/84; TEMP 97.3; O2SAT 88
[2023-10-09 07:06] LABS: BLOOD UREA NITROGEN 15 MG/DL (9-23); CARBON DIOXIDE LEVEL 31 MMOL/L (20-31); CHLORIDE LEVEL 100 MMOL/L (98-107); CREATININE FOR GFR 0.92 MG/DL (0.55-1.30); GLOMERULAR FILTRATION RATE > 60.0 (>39); GLUCOSE, FASTING 107 MG/DL (74-106); MAGNESIUM LEVEL 1.5 MG/DL (1.8-2.4); POTASSIUM SERUM 4.1 MMOL/L (3.5-5.1); SODIUM LEVEL 141 MMOL/L (136-145)
[2023-10-09] MEDS: MAG SULF 1GM/100ML (MAG RUN) 1 GM in IV 1 EA IV SCH (08:54)
[2023-10-09] MEDS: SODIUM CHLORIDE 0.9% INJ 10 ML SYR IV PRN (09:01)
[2023-10-09 09:08] VITALS: BP 119/66
[2023-10-09] MEDS: SENNA 8.6 MG TAB (SENOKOT) PO SCH (10:42)
[2023-10-09] MEDS: MIRALAX *UNIT DOSE* 17GM PACKET PO SCH (10:42)
[2023-10-09 14:00] VITALS: BP 131/62; TEMP 97.2; O2SAT 97
[2023-10-09] MEDS: ALBUTEROL 90 MCG/ACT 8GM HFA INHALER INH PRN (17:23)
[2023-10-09 22:00] VITALS: BP 113/58; TEMP 97.2; O2SAT 93
[2023-10-10] MEDS: SUMAtriptan SUCCINATE 25 MG TAB PO PRN (01:44)
[2023-10-10 06:00] VITALS: BP 141/69; TEMP 97.2; O2SAT 92
[2023-10-10 09:56] LABS: BASO # 0.1 10^3/uL (0.0-0.2); BASO % 0.6 % (0.0-1.0); EOS # 0.4 10^3/uL (0.0-0.5); EOS % 3.4 % (0.0-3.0); HEMATOCRIT 36.2 % (36.0-47.0); HEMOGLOBIN 10.9 g/dl (12.0-15.5); LYMPH # 1.3 10^3/uL (1.5-5.0); LYMPH % 10.7 % (24.0-44.0); MEAN CORPUSCULAR HGB CONC 30.1 g/dl (32.0-36.5); MEAN CORPUSCULAR VOLUME 89.6 fl (80.0-96.0); MONO # 0.8 10^3/uL (0.0-0.8); MONO % 6.4 % (2.0-8.0); NEUTROPHILS # 9.8 10^3/uL (1.5-8.5); NEUTROPHILS % 77.9 % (36.0-66.0); PLATELET COUNT, AUTOMATED 277 10^3/uL (150-450); RED BLOOD COUNT 4.04 10^6/uL (4.00-5.40); WHITE BLOOD COUNT 12.6 10^3/uL (4.0-10.0)
[2023-10-10 10:19] LABS: BLOOD UREA NITROGEN 16 MG/DL (9-23); CALCIUM LEVEL 9.6 MG/DL (8.3-10.6); CARBON DIOXIDE LEVEL 33 MMOL/L (20-31); CHLORIDE LEVEL 98 MMOL/L (98-107); GLOMERULAR FILTRATION RATE > 60.0 (>39); GLUCOSE, FASTING 128 MG/DL (74-106); MAGNESIUM LEVEL 1.7 MG/DL (1.8-2.4); SODIUM LEVEL 139 MMOL/L (136-145)
[2023-10-10 14:00] VITALS: BP 122/65; TEMP 97.9; O2SAT 97
[2023-10-10] MEDS: MAG SULF 1GM/100ML (MAG RUN) 1 GM in IV 1 EA IV ONE (15:34)
[2023-10-10] MEDS: MAGNESIUM OXIDE 400MG TAB (MAG-OX) PO SCH (20:26)
[2023-10-10 22:00] VITALS: BP 129/68; TEMP 97.3; O2SAT 96
[2023-10-11 06:00] VITALS: BP 142/68; TEMP 97.3; O2SAT 91
[2023-10-11 09:34] LABS: BASO # 0.1 10^3/uL (0.0-0.2); BASO % 0.6 % (0.0-1.0); EOS # 0.4 10^3/uL (0.0-0.5); EOS % 3.6 % (0.0-3.0); HEMATOCRIT 34.4 % (36.0-47.0); HEMOGLOBIN 10.6 g/dl (12.0-15.5); LYMPH # 1.3 10^3/uL (1.5-5.0); LYMPH % 11.8 % (24.0-44.0); MEAN CORPUSCULAR HEMOGLOBIN 27.4 pg (27.0-33.0); MEAN CORPUSCULAR HGB CONC 30.8 g/dl (32.0-36.5); MEAN CORPUSCULAR VOLUME 88.9 fl (80.0-96.0); MONO # 0.9 10^3/uL (0.0-0.8); MONO % 7.9 % (2.0-8.0); NEUTROPHILS # 8.3 10^3/uL (1.5-8.5); NEUTROPHILS % 74.4 % (36.0-66.0); PLATELET COUNT, AUTOMATED 254 10^3/uL (150-450); RED BLOOD COUNT 3.87 10^6/uL (4.00-5.40); WHITE BLOOD COUNT 11.1 10^3/uL (4.0-10.0)
[2023-10-11 09:42] LABS: ALBUMIN 3.1 G/DL (3.2-5.2); BLOOD UREA NITROGEN 18 MG/DL (9-23); CALCIUM LEVEL 9.2 MG/DL (8.3-10.6); CARBON DIOXIDE LEVEL 31 MMOL/L (20-31); CHLORIDE LEVEL 96 MMOL/L (98-107); CREATININE FOR GFR 0.84 MG/DL (0.55-1.30); ERYTHROCYTE SEDIMENTATION RATE 61 mm/hr (0-30); GLOMERULAR FILTRATION RATE > 60.0 (>39); GLUCOSE, FASTING 155 MG/DL (74-106); MAGNESIUM LEVEL 1.8 MG/DL (1.8-2.4); POTASSIUM SERUM 3.9 MMOL/L (3.5-5.1); SODIUM LEVEL 135 MMOL/L (136-145)
[2023-10-11 14:00] VITALS: BP 129/69; TEMP 97.5; O2SAT 96
[2023-10-11 20:40] VITALS: BP 103/53; TEMP 97.5; O2SAT 95
[2023-10-12 00:30] VITALS: O2SAT 94
[2023-10-12 06:00] VITALS: BP 132/60; TEMP 97; O2SAT 94
[2023-10-12 11:02] LABS: BASO # 0.1 10^3/uL (0.0-0.2); BASO % 0.7 % (0.0-1.0); EOS # 0.4 10^3/uL (0.0-0.5); EOS % 3.3 % (0.0-3.0); HEMOGLOBIN 10.4 g/dl (12.0-15.5); LYMPH # 1.3 10^3/uL (1.5-5.0); LYMPH % 11.4 % (24.0-44.0); MEAN CORPUSCULAR HEMOGLOBIN 27.4 pg (27.0-33.0); MEAN CORPUSCULAR HGB CONC 30.6 g/dl (32.0-36.5); MEAN CORPUSCULAR VOLUME 89.5 fl (80.0-96.0); MONO # 0.9 10^3/uL (0.0-0.8); MONO % 7.4 % (2.0-8.0); NEUTROPHILS % 75.8 % (36.0-66.0); PLATELET COUNT, AUTOMATED 270 10^3/uL (150-450); WHITE BLOOD COUNT 11.8 10^3/uL (4.0-10.0)
[2023-10-12 11:27] LABS: BLOOD UREA NITROGEN 20 MG/DL (9-23); CALCIUM LEVEL 9.2 MG/DL (8.3-10.6); CARBON DIOXIDE LEVEL 34 MMOL/L (20-31); CHLORIDE LEVEL 97 MMOL/L (98-107); CREATININE FOR GFR 0.95 MG/DL (0.55-1.30); GLOMERULAR FILTRATION RATE > 60.0 (>39); GLUCOSE, FASTING 138 MG/DL (74-106); POTASSIUM SERUM 3.9 MMOL/L (3.5-5.1); SODIUM LEVEL 138 MMOL/L (136-145)
[2023-10-12 11:41] LABS: ERYTHROCYTE SEDIMENTATION RATE 80 mm/hr (0-30)
[2023-10-12 14:00] VITALS: BP 125/68; TEMP 97.3; O2SAT 95
[2023-10-12] MEDS: NYSTATIN 100,000 UNITS/GM TOPICAL PWD 15GM TOP PRN (20:39)
[2023-10-12 21:00] VITALS: BP 124/66; TEMP 97.7; O2SAT 96
[2023-10-13 00:30] VITALS: O2SAT 92
[2023-10-13 04:59] VITALS: BP 123/60; TEMP 97.5; O2SAT 92
[2023-10-13 06:52] LABS: HEMATOCRIT 32.1 % (36.0-47.0); HEMOGLOBIN 9.7 g/dl (12.0-15.5); MEAN CORPUSCULAR HEMOGLOBIN 27.4 pg (27.0-33.0); MEAN CORPUSCULAR HGB CONC 30.2 g/dl (32.0-36.5); MEAN CORPUSCULAR VOLUME 90.7 fl (80.0-96.0); PLATELET COUNT, AUTOMATED 245 10^3/uL (150-450); RED BLOOD COUNT 3.54 10^6/uL (4.00-5.40); WHITE BLOOD COUNT 11.2 10^3/uL (4.0-10.0)
[2023-10-13 14:00] VITALS: BP 119/66; TEMP 97.5; O2SAT 96
[2023-10-13 22:00] VITALS: BP 129/70; TEMP 97.9; O2SAT 95
[2023-10-14 05:11] VITALS: BP 116/63; TEMP 97.3; O2SAT 88
[2023-10-14 06:00] VITALS: BP 116/63; TEMP 97; O2SAT 92
[2023-10-14 14:00] VITALS: BP 136/71; TEMP 97.3; O2SAT 94
[2023-10-14 22:00] VITALS: BP 132/65; TEMP 97.5; O2SAT 95
[2023-10-15 05:31] VITALS: BP 125/59; TEMP 97.5; O2SAT 89
[2023-10-15 14:00] VITALS: BP 131/65; TEMP 97.3; O2SAT 99
[2023-10-15 15:16] LABS: BASO # 0.1 10^3/uL (0.0-0.2); BASO % 0.4 % (0.0-1.0); EOS # 0.4 10^3/uL (0.0-0.5); EOS % 3.2 % (0.0-3.0); HEMATOCRIT 31.7 % (36.0-47.0); HEMOGLOBIN 9.9 g/dl (12.0-15.5); LYMPH # 1.4 10^3/uL (1.5-5.0); LYMPH % 10.6 % (24.0-44.0); MEAN CORPUSCULAR HEMOGLOBIN 27.8 pg (27.0-33.0); MEAN CORPUSCULAR HGB CONC 31.2 g/dl (32.0-36.5); MONO # 0.8 10^3/uL (0.0-0.8); MONO % 6.2 % (2.0-8.0); NEUTROPHILS # 10.2 10^3/uL (1.5-8.5); NEUTROPHILS % 78.4 % (36.0-66.0); PLATELET COUNT, AUTOMATED 219 10^3/uL (150-450); RED BLOOD COUNT 3.56 10^6/uL (4.00-5.40); WHITE BLOOD COUNT 12.9 10^3/uL (4.0-10.0)
[2023-10-15 15:36] LABS: BLOOD UREA NITROGEN 21 MG/DL (9-23); CARBON DIOXIDE LEVEL 34 MMOL/L (20-31); CHLORIDE LEVEL 100 MMOL/L (98-107); CREATININE FOR GFR 0.85 MG/DL (0.55-1.30); GLOMERULAR FILTRATION RATE > 60.0 (>39); GLUCOSE, FASTING 130 MG/DL (74-106); POTASSIUM SERUM 3.9 MMOL/L (3.5-5.1); SODIUM LEVEL 139 MMOL/L (136-145)
[2023-10-15] MEDS: ERTAPENEM SODIUM 1 GM in NS MINI-BAG PLUS 50 ML IV ONE (17:02)
[2023-10-15 19:56] VITALS: BP 129/65; TEMP 97.7; O2SAT 95
[2023-10-16 06:00] VITALS: BP 131/73; TEMP 97.3; O2SAT 92
[2023-10-16 09:29] LABS: HEMATOCRIT 34.1 % (36.0-47.0); HEMOGLOBIN 10.5 g/dl (12.0-15.5); MEAN CORPUSCULAR HEMOGLOBIN 27.9 pg (27.0-33.0); MEAN CORPUSCULAR HGB CONC 30.8 g/dl (32.0-36.5); MEAN CORPUSCULAR VOLUME 90.5 fl (80.0-96.0); PLATELET COUNT, AUTOMATED 240 10^3/uL (150-450); RED BLOOD COUNT 3.77 10^6/uL (4.00-5.40); WHITE BLOOD COUNT 12.5 10^3/uL (4.0-10.0)
[2023-10-16] MEDS: ERTAPENEM SODIUM 1 GM in NS MINI-BAG PLUS 50 ML IV ONE (11:59)
== END 2023-10-16 13:14 | disposition home or self-care (01) | DRG 690 ==
LOC: EDBD 07:53 → M ED 07:53 → M ED INP 11:21 → M MSPAV 16:17
PROVIDERS: ADMIT Hospitalist; ATTEND General Practice
DX: N12 Tubulo-interstitial nephritis, not specified as acute or chronic (principal); E66.2 Morbid (severe) obesity with alveolar hypoventilation; I13.0 Hypertensive heart and chronic kidney disease with heart failure and stage 1 through stage 4 chronic kidney disease, or unspecified chronic kidney disease; J96.11 Chronic respiratory failure with hypoxia; J96.12 Chronic respiratory failure with hypercapnia; I50.32 Chronic diastolic (congestive) heart failure; Z68.42 Body mass index [BMI] 45.0-49.9, adult; N17.9 Acute kidney failure, unspecified; E11.22 Type 2 diabetes mellitus with diabetic chronic kidney disease; N18.30 Chronic kidney disease, stage 3 unspecified; G43.909 Migraine, unspecified, not intractable, without status migrainosus; M48.00 Spinal stenosis, site unspecified; M54.9 Dorsalgia, unspecified; G89.29 Other chronic pain; K21.9 Gastro-esophageal reflux disease without esophagitis; J44.9 Chronic obstructive pulmonary disease, unspecified; E78.5 Hyperlipidemia, unspecified; G25.3 Myoclonus; G25.81 Restless legs syndrome; F41.9 Anxiety disorder, unspecified; F32.A Depression, unspecified; R32 Unspecified urinary incontinence; Z87.891 Personal history of nicotine dependence; Z85.118 Personal history of other malignant neoplasm of bronchus and lung; Z99.81 Dependence on supplemental oxygen; Z99.3 Dependence on wheelchair; Z90.2 Acquired absence of lung [part of]; Z86.711 Personal history of pulmonary embolism; Z79.01 Long term (current) use of anticoagulants; Z79.84 Long term (current) use of oral hypoglycemic drugs; Z79.899 Other long term (current) drug therapy; Z88.8 Allergy status to other drugs, medicaments and biological substances; I27.81 Cor pulmonale (chronic); I27.20 Pulmonary hypertension, unspecified; E83.42 Hypomagnesemia; B96.1 Klebsiella pneumoniae [K. pneumoniae] as the cause of diseases classified elsewhere; N39.0 Urinary tract infection, site not specified

== ENCOUNTER 2023-12-27 22:41 | Inpatient (IN) | payer MEDICARE, BC ==
[~2023-12-27] VITALS: Ht 160 cm; Wt 117.2 kg
[~2023-12-27 22:41] MED LIST changes: +ALLO100T PO; +GUAI600T54 PO; +MULT-40 PO; +ONDA-282 PO; +ONDA-284 SL; -ONDA4TAB6 PO; -ONDA8TAB8 SL; +POTA-298 PO; +PROBCAP14 PO; +VITA500075 PO
[2023-12-27 23:37] LABS: INR 1.26; PARTIAL THROMBOPLASTIN TIME 29.6 SECONDS (24.8-34.2); PROTHROMBIN TIME 15.4 SECONDS (12.5-14.5)
[2023-12-27 23:41] LABS: ALBUMIN 3.7 G/DL (3.2-5.2); ALKALINE PHOSPHATASE 91 U/L (46-116); ALT/SGPT 16 U/L (7.0-40); AST/SGOT 13 U/L (<34); BILIRUBIN,DIRECT < 0.1 MG/DL (<0.4); BILIRUBIN,TOTAL 0.2 MG/DL (0.3-1.2); BLOOD UREA NITROGEN 33 MG/DL (9-23); CALCIUM LEVEL 8.8 MG/DL (8.3-10.6); CARBON DIOXIDE LEVEL 26 MMOL/L (20-31); CHLORIDE LEVEL 101 MMOL/L (98-107); CK-MB VALUE MASS < 1.0 NG/ML (<3.6); CREATININE FOR GFR 1.25 MG/DL (0.55-1.30); GLOMERULAR FILTRATION RATE 44.8 (>39); GLUCOSE, FASTING 105 MG/DL (74-106); POTASSIUM SERUM 3.8 MMOL/L (3.5-5.1); SODIUM LEVEL 137 MMOL/L (136-145)
[2023-12-27 23:48] LABS: FREE T4 1.04 NG/DL (0.89-1.76); THYROID STIMULATING HORMONE 1.421 uIU/ML (0.55-4.78)
[2023-12-27] MEDS: ERTAPENEM SODIUM 1 GM in NS MINI-BAG PLUS 50 ML IV ONE (23:49)
[2023-12-27 23:50] LABS: BASO % 0.3 % (0.0-1.0); EOS # 0.3 10^3/uL (0.0-0.5); EOS % 2.2 % (0.0-3.0); HEMATOCRIT 32.2 % (36.0-47.0); HEMOGLOBIN 9.9 g/dl (12.0-15.5); LYMPH # 0.8 10^3/uL (1.5-5.0); LYMPH % 6.2 % (24.0-44.0); MEAN CORPUSCULAR HEMOGLOBIN 29.5 pg (27.0-33.0); MEAN CORPUSCULAR HGB CONC 30.7 g/dl (32.0-36.5); MEAN CORPUSCULAR VOLUME 95.8 fl (80.0-96.0); MONO # 1.3 10^3/uL (0.0-0.8); MONO % 10.8 % (2.0-8.0); NEUTROPHILS # 9.7 10^3/uL (1.5-8.5); NEUTROPHILS % 79.2 % (36.0-66.0); PLATELET COUNT, AUTOMATED 240 10^3/uL (150-450); RED BLOOD COUNT 3.36 10^6/uL (4.00-5.40); WHITE BLOOD COUNT 12.3 10^3/uL (4.0-10.0)
[2023-12-27 23:52] LABS: ABG BASE EXCESS 1.4 (-2.0-2.0); ABG HCO3 26.9 MMOL/L (22.0-26.0); ABG O2 SATURATION 97.6 % (95.0-99.0); ABG PARTIAL PRESSURE CO2 46.4 mmHg (35.0-45.0); ABG PARTIAL PRESSURE O2 106.2 mmHg (75.0-100.0); ABG STANDARD HCO3 25.7 MMOL/L. (22.0-26.0); ABG TOTAL CO2 28.3 MMOL/L (23.0-31.0); ABG pH (ARTERIAL) 7.381 UNITS (7.350-7.450)
[2023-12-27 23:53] LABS: CPK CREATINE PHOSPHOKINASE 30 U/L (34-145); MB/CK RELATIVE INDEX 3.33 (< OR =4)
[2023-12-28] MEDS ORDERED: GLUCOSE 4 GM CHEW PO PRN (02:20)
[2023-12-28] MEDS ORDERED: GLUCAGON INJ 1MG VIAL SC PRN (02:20)
[2023-12-28] MEDS ORDERED: DEXTROSE 50% 50ML SYRINGE IV PRN (02:20)
[2023-12-28] MEDS ORDERED: ALBUTEROL 90 MCG/ACT 8GM HFA INHALER INH PRN (02:55)
[2023-12-28] MEDS ORDERED: MOM 30ML SUSPENSION UDC PO PRN (02:55)
[2023-12-28] MEDS: NS 500 ML IV SCH (03:30)
[2023-12-28 04:10] LABS: HEMATOCRIT 30.2 % (36.0-47.0); HEMOGLOBIN 9.2 g/dl (12.0-15.5); MEAN CORPUSCULAR HEMOGLOBIN 28.8 pg (27.0-33.0); MEAN CORPUSCULAR HGB CONC 30.5 g/dl (32.0-36.5); MEAN CORPUSCULAR VOLUME 94.7 fl (80.0-96.0); PLATELET COUNT, AUTOMATED 220 10^3/uL (150-450); RED BLOOD COUNT 3.19 10^6/uL (4.00-5.40)
[2023-12-28] MEDS: ACETAMINOPHEN TAB 650MG DOSE (2X325MG) PO PRN (04:32)
[2023-12-28] MEDS: DOXYCYCLINE HYCLATE 100 MG in D5W MINI-BAG PLUS 100 ML IV SCH (04:32)
[2023-12-28 04:36] LABS: ALBUMIN 3.2 G/DL (3.2-5.2); ALKALINE PHOSPHATASE 77 U/L (46-116); ALT/SGPT 12 U/L (7.0-40); AST/SGOT 10 U/L (<34); BILIRUBIN,TOTAL < 0.2 MG/DL (0.3-1.2); BLOOD UREA NITROGEN 32 MG/DL (9-23); CALCIUM LEVEL 8.6 MG/DL (8.3-10.6); CARBON DIOXIDE LEVEL 29 MMOL/L (20-31); CHLORIDE LEVEL 103 MMOL/L (98-107); CREATININE FOR GFR 1.13 MG/DL (0.55-1.30); GLOMERULAR FILTRATION RATE 50.4 (>39); GLUCOSE, FASTING 97 MG/DL (74-106); POTASSIUM SERUM 4.4 MMOL/L (3.5-5.1); SODIUM LEVEL 140 MMOL/L (136-145); TOTAL PROTEIN 6.1 G/DL (5.7-8.2)
[2023-12-28 05:53] VITALS: BP 148/65; TEMP 100.6; O2SAT 95
[2023-12-28] MEDS ORDERED: HEPARIN SOD (PORCINE) 5000UNITS/ML 1ML VIAL/SYRINGE SC SCH (06:00)
[2023-12-28] MEDS: REMDESIVIR 200 MG in NS 250 ML IV ONE (06:17)
[2023-12-28] MEDS ORDERED: METF10004 PO (06:34)
[2023-12-28] MEDS ORDERED: SENN8.6T28 PO (06:34)
[2023-12-28] MEDS ORDERED: CALTAB PO (06:34)
[2023-12-28] MEDS ORDERED: ONDA-282 PO (06:34)
[2023-12-28] MEDS ORDERED: POTA1TAB21 PO (06:34)
[2023-12-28] MEDS ORDERED: HOME MED LIST COMPLETE! XX SCH (06:40)
[2023-12-28] MEDS: INSULIN LISPRO (NovoLOG) PER UNIT SC SCH ×2 (07:15→21:00)
[2023-12-28] MEDS: SYMBICORT 160/4.5MCG INHALER 6GM INH SCH ×2 (08:06→08:15)
[2023-12-28] MEDS: IPRATROPIUM 0.5MG/ALBUTEROL 2.5MG INH SOL UD 3ML (DUONEB) NEB SCH (08:15)
[2023-12-28 08:26] VITALS: BP 121/59; TEMP 99.8; O2SAT 95
[2023-12-28] MEDS: PANTOPRAZOLE 40MG VIAL IV SCH (08:42)
[2023-12-28] MEDS: cefTRIAXone SOD 1 GM in D5W MINI-BAG PLUS 50 ML IV SCH (08:42)
[2023-12-28] MEDS: APIXABAN 5 MG TAB (ELIQUIS) PO SCH (08:42)
[2023-12-28] MEDS: DOCUSATE SODIUM 100MG CAPSULE PO SCH (08:42)
[2023-12-28] MEDS ORDERED: PANTOPRAZOLE 40MG TAB (PROTONIX) PO SCH (09:00)
[2023-12-28] MEDS ORDERED: SUMAtriptan SUCCINATE 25 MG TAB PO PRN (10:05)
[2023-12-28] MEDS ORDERED: ONDANSETRON 4MG ORAL DISINTEGRATING TAB PO PRN (10:05)
[2023-12-28] MEDS ORDERED: MIRALAX *UNIT DOSE* 17GM PACKET PO PRN (10:05)
[2023-12-28] MEDS ORDERED: NYSTATIN 100,000 UNITS/GM TOPICAL PWD 15GM TOP PRN (10:05)
[2023-12-28] MEDS: FERROUS SULFATE 325MG TAB PO SCH (10:55)
[2023-12-28] MEDS: GABAPENTIN 100 MG CAP PO SCH (10:55)
[2023-12-28] MEDS: LACTOBACILLUS ACIDOPHILUS CAP (BACID) PO SCH (10:55)
[2023-12-28] MEDS: SENNA 8.6 MG TAB (SENOKOT) PO SCH (10:56)
[2023-12-28] MEDS: TORSEMIDE 20 MG TAB PO SCH (10:56)
[2023-12-28] MEDS: MAGNESIUM OXIDE 400MG TAB (MAG-OX) PO SCH (10:56)
[2023-12-28] MEDS: SPIRONOLACTONE 50 MG TAB PO SCH (10:56)
[2023-12-28] MEDS: POTASSIUM CHLORIDE 10MEQ SR TABLET PO SCH (10:57)
[2023-12-28] MEDS: TIOTROPIUM INHALER/CAPSULE (SPIRIVA) INH SCH (11:21)
[2023-12-28] MEDS: OLANZapine 5 MG TAB PO SCH (11:35)
[2023-12-28 11:44] VITALS: BP 120/65; TEMP 99; O2SAT 92
[2023-12-28 15:23] VITALS: BP 163/72; TEMP 99; O2SAT 93
[2023-12-28] MEDS: DOXYCYCLINE HYCLATE 100MG TABLET PO SCH (17:00)
[2023-12-28 20:00] VITALS: BP 126/62; TEMP 97.8; O2SAT 93
[2023-12-28] MEDS: ATORVASTATIN 20 MG TAB PO SCH (21:07)
[2023-12-28] MEDS: LATANOPROST 0.005% OPHTH SOLN 2.5 ML OU SCH (21:11)
[2023-12-28 23:26] VITALS: BP 135/63; TEMP 97.6; O2SAT 97
[2023-12-29 03:39] VITALS: BP 158/86; TEMP 96.9; O2SAT 100
[2023-12-29] MEDS: REMDESIVIR 100 MG in NS 250 ML IV SCH (05:24)
[2023-12-29 05:41] LABS: ABG BASE EXCESS 5.2 (-2.0-2.0); ABG HCO3 30.2 MMOL/L (22.0-26.0); ABG O2 SATURATION 94.7 % (95.0-99.0); ABG PARTIAL PRESSURE CO2 46.6 mmHg (35.0-45.0); ABG PARTIAL PRESSURE O2 76.4 mmHg (75.0-100.0); ABG STANDARD HCO3 29.1 MMOL/L. (22.0-26.0); ABG TOTAL CO2 31.6 MMOL/L (23.0-31.0); ABG pH (ARTERIAL) 7.429 UNITS (7.350-7.450)
[2023-12-29 05:46] VITALS: BP 108/59; O2SAT 92
[2023-12-29 05:47] VITALS: BP 116/60; O2SAT 93
[2023-12-29 06:00] LABS: ALBUMIN 3.1 G/DL (3.2-5.2); ALKALINE PHOSPHATASE 74 U/L (46-116); ALT/SGPT 12 U/L (7.0-40); AST/SGOT < 8 U/L (<34); BILIRUBIN,DIRECT < 0.1 MG/DL (<0.4); BILIRUBIN,TOTAL < 0.2 MG/DL (0.3-1.2); TOTAL PROTEIN 6.2 G/DL (5.7-8.2)
[2023-12-29 08:00] VITALS: BP 169/89; TEMP 97; O2SAT 98
[2023-12-29] MEDS: PANTOPRAZOLE 40MG TAB (PROTONIX) PO SCH (09:34)
[2023-12-29] MEDS: POTASSIUM CHLORIDE 10MEQ SR TABLET PO SCH (09:35)
[2023-12-29] MEDS: PERCOCET 5MG/325MG TAB PO PRN (09:40)
[2023-12-29] MEDS ORDERED: DEXA6TAB PO (09:49)
== END 2023-12-29 12:43 | disposition home or self-care (01) | DRG 177 ==
LOC: EDBD 22:41 → M ED 22:41 → M ED INP 12-28 02:55 → M PCU 12-28 05:35
PROVIDERS: ADMIT Family Medicine; ATTEND Internal Medicine
PROC: XW033E5 Introduction of Remdesivir Anti-infective into Peripheral Vein, Percutaneous Approach, New Technology Group 5 (ICD-10-PCS; principal; 2023-12-28)
DX: U07.1 COVID-19 (principal); J96.22 Acute and chronic respiratory failure with hypercapnia; J96.11 Chronic respiratory failure with hypoxia; I50.32 Chronic diastolic (congestive) heart failure; M46.24 Osteomyelitis of vertebra, thoracic region; J44.1 Chronic obstructive pulmonary disease with (acute) exacerbation; E87.20 Acidosis, unspecified; E66.2 Morbid (severe) obesity with alveolar hypoventilation; I13.0 Hypertensive heart and chronic kidney disease with heart failure and stage 1 through stage 4 chronic kidney disease, or unspecified chronic kidney disease; M46.26 Osteomyelitis of vertebra, lumbar region; Z68.41 Body mass index [BMI] 40.0-44.9, adult; I27.20 Pulmonary hypertension, unspecified; G25.81 Restless legs syndrome; N18.30 Chronic kidney disease, stage 3 unspecified; E11.22 Type 2 diabetes mellitus with diabetic chronic kidney disease; M79.89 Other specified soft tissue disorders; K21.9 Gastro-esophageal reflux disease without esophagitis; E78.5 Hyperlipidemia, unspecified; Z66 Do not resuscitate; Z90.2 Acquired absence of lung [part of]; Z85.118 Personal history of other malignant neoplasm of bronchus and lung; Z98.1 Arthrodesis status; Z79.01 Long term (current) use of anticoagulants; Z79.899 Other long term (current) drug therapy; Z79.84 Long term (current) use of oral hypoglycemic drugs; Z88.8 Allergy status to other drugs, medicaments and biological substances

== ENCOUNTER → 2024-02-06 | Outpatient (CLI) | payer MEDICARE, BC ==
[~2024-02-06] MED LIST changes: +CALTAB PO; +DEXA6TAB PO; +METF10004 PO; +POTA1TAB21 PO; +SENN8.6T28 PO
[2024-02-06 15:42] LABS: BASO # 0.1 10^3/uL (0.0-0.2); BASO % 0.4 % (0.0-1.0); EOS # 0.2 10^3/uL (0.0-0.5); EOS % 1.9 % (0.0-3.0); HEMATOCRIT 32.3 % (36.0-47.0); HEMOGLOBIN 9.7 g/dl (12.0-15.5); LYMPH # 1.7 10^3/uL (1.5-5.0); LYMPH % 13.3 % (24.0-44.0); MEAN CORPUSCULAR VOLUME 96.7 fl (80.0-96.0); MONO # 1.2 10^3/uL (0.0-0.8); MONO % 9.5 % (2.0-8.0); NEUTROPHILS # 8.8 10^3/uL (1.5-8.5); NEUTROPHILS % 70.2 % (36.0-66.0); PLATELET COUNT, AUTOMATED 291 10^3/uL (150-450); RED BLOOD COUNT 3.34 10^6/uL (4.00-5.40); WHITE BLOOD COUNT 12.6 10^3/uL (4.0-10.0)
[2024-02-06 15:52] LABS: ERYTHROCYTE SEDIMENTATION RATE 66 mm/hr (0-30)
[2024-02-06 16:08] LABS: C REACTIVE PROTEIN QUANTITATIV 2.3 MG/DL (<1.0)
[2024-02-06 16:10] LABS: PERCENT SATURATION 12.4 % (13.2-45.0)
[2024-02-06 16:12] LABS: FOLATE 10.8 NG/ML (>5.4)
== END ==
LOC: M PLALAB 13:13
PROVIDERS: ATTEND Internal Medicine Infectious Disease
DX: D64.9 Anemia, unspecified (principal)

== ENCOUNTER 2024-03-29 07:59 | Observation (INO) | payer MEDICARE, BC ==
[~2024-03-29] VITALS: Ht 154.9 cm; Wt 111.4 kg
[~2024-03-29 07:59] MED LIST changes: -LIDO1CRE2 EX; +LIDO4CRE12 EX; +NYST1POW3 TOP; -NYST1POW9 TOP
[2024-03-29] MEDS: IPRATROPIUM 0.5MG/ALBUTEROL 2.5MG INH SOL UD 3ML (DUONEB) NEB PRN (08:44)
[2024-03-29] MEDS: methylPREDNISolone 125MG 2ML VIAL IV ONE (08:47)
[2024-03-29 09:05] LABS: VENOUS BASE EXCESS -0.5 (-2.0-2.0); VENOUS HCO3 26.3 MMOL/L (23.0-27.0); VENOUS O2 SATURATION 88.2 % (60.0-80.0); VENOUS PARTIAL PRESSURE CO2 53.9 mmHg (38.0-50.0); VENOUS PARTIAL PRESSURE O2 55.1 mmHg (30.0-50.0); VENOUS PH 7.307 UNITS (7.330-7.430); VENOUS STANDARD HCO3 23.9 MMOL/L
[2024-03-29 09:13] LABS: BASO # 0.1 10^3/uL (0.0-0.2); BASO % 0.5 % (0.0-1.0); EOS # 0.5 10^3/uL (0.0-0.5); EOS % 3.7 % (0.0-3.0); HEMATOCRIT 33.8 % (36.0-47.0); HEMOGLOBIN 10.3 g/dl (12.0-15.5); LYMPH # 1.8 10^3/uL (1.5-5.0); LYMPH % 14.8 % (24.0-44.0); MEAN CORPUSCULAR HEMOGLOBIN 28.9 pg (27.0-33.0); MEAN CORPUSCULAR HGB CONC 30.5 g/dl (32.0-36.5); MEAN CORPUSCULAR VOLUME 94.9 fl (80.0-96.0); MONO # 0.9 10^3/uL (0.0-0.8); MONO % 7.3 % (2.0-8.0); NEUTROPHILS # 8.9 10^3/uL (1.5-8.5); NEUTROPHILS % 72.2 % (36.0-66.0); PLATELET COUNT, AUTOMATED 294 10^3/uL (150-450); RED BLOOD COUNT 3.56 10^6/uL (4.00-5.40); WHITE BLOOD COUNT 12.3 10^3/uL (4.0-10.0)
[2024-03-29 09:34] LABS: ALBUMIN 3.9 G/DL (3.2-5.2); ALKALINE PHOSPHATASE 86 U/L (35-104); ALT/SGPT 13 U/L (7.0-40); AST/SGOT 15 U/L (<34); BILIRUBIN,DIRECT < 0.1 MG/DL (<0.4); BILIRUBIN,TOTAL 0.2 MG/DL (0.3-1.2); BLOOD UREA NITROGEN 44 MG/DL (9-23); CALCIUM LEVEL 10.1 MG/DL (8.3-10.6); CARBON DIOXIDE LEVEL 27 MMOL/L (20-31); CHLORIDE LEVEL 102 MMOL/L (98-107); GLOMERULAR FILTRATION RATE 39.4 (>39); GLUCOSE, FASTING 96 MG/DL (74-106); POTASSIUM SERUM 4.2 MMOL/L (3.5-5.1); SODIUM LEVEL 138 MMOL/L (136-145); TOTAL PROTEIN 7.7 G/DL (5.7-8.2)
[2024-03-29] MEDS ORDERED: ISOVUE-370 76% 100ML VIAL As Ordered ONE (10:35)
[2024-03-29 13:43] LABS: ABG BASE EXCESS -2.9 (-2.0-2.0); ABG O2 SATURATION 96.4 % (95.0-99.0); ABG PARTIAL PRESSURE CO2 51.3 mmHg (35.0-45.0); ABG PARTIAL PRESSURE O2 99.4 mmHg (75.0-100.0); ABG TOTAL CO2 25.6 MMOL/L (23.0-31.0); ABG pH (ARTERIAL) 7.288 UNITS (7.350-7.450)
[2024-03-29] MEDS ORDERED: POTA-298 PO (15:07)
[2024-03-29] MEDS ORDERED: METH-855 PO (15:07)
[2024-03-29] MEDS ORDERED: CALC600T61 PO (15:07)
[2024-03-29] MEDS ORDERED: BUDE0.5S6 INH (15:07)
[2024-03-29] MEDS ORDERED: VITA500C24 PO (15:07)
[2024-03-29] MEDS ORDERED: TORS20TA2 PO (15:07)
[2024-03-29] MEDS ORDERED: HOME MED LIST COMPLETE! XX SCH (15:10)
[2024-03-29 16:59] LABS: ABG BASE EXCESS 0.5 (-2.0-2.0); ABG HCO3 26.8 MMOL/L (22.0-26.0); ABG O2 SATURATION 91.7 % (95.0-99.0); ABG PARTIAL PRESSURE CO2 51.2 mmHg (35.0-45.0); ABG PARTIAL PRESSURE O2 66.8 mmHg (75.0-100.0); ABG STANDARD HCO3 24.8 MMOL/L. (22.0-26.0); ABG TOTAL CO2 28.4 MMOL/L (23.0-31.0); ABG pH (ARTERIAL) 7.337 UNITS (7.350-7.450)
[2024-03-29] MEDS ORDERED: ALBUTEROL 90 MCG/ACT 8GM HFA INHALER INH PRN (18:25)
[2024-03-29] MEDS ORDERED: NYSTATIN 100,000 UNITS/GM TOPICAL PWD 15GM TOP PRN (18:25)
[2024-03-29] MEDS ORDERED: BUDESONIDE 0.5 MG/2 ML INHALATION SUSPENSION INH PRN (18:25)
[2024-03-29] MEDS ORDERED: MIRALAX *UNIT DOSE* 17GM PACKET PO PRN (18:25)
[2024-03-29] MEDS ORDERED: ACETAMINOPHEN 325 MG TAB PO PRN (18:45)
[2024-03-29] MEDS: TORSEMIDE 20 MG TAB PO SCH (19:16)
[2024-03-29] MEDS: ADVAIR HFA 115/21MCG INHALER INH SCH (20:48)
[2024-03-29] MEDS ORDERED: SENNA 8.6 MG TAB (SENOKOT) PO SCH (21:00)
[2024-03-29] MEDS: OLANZapine 5 MG TAB PO SCH (22:30)
[2024-03-29] MEDS: ASCORBIC ACID 500 MG TAB PO SCH (22:30)
[2024-03-29] MEDS: APIXABAN 5 MG TAB (ELIQUIS) PO SCH (22:30)
[2024-03-29] MEDS: CEFDINIR 300 MG CAP (OMNICEF) PO SCH (22:30)
[2024-03-29] MEDS: DOCUSATE SODIUM 100MG CAPSULE PO SCH (22:30)
[2024-03-29] MEDS: ATORVASTATIN 20 MG TAB PO SCH (22:30)
[2024-03-29] MEDS: GABAPENTIN 100 MG CAP PO SCH (22:30)
[2024-03-29] MEDS: LACTOBACILLUS ACIDOPHILUS CAP (BACID) PO SCH (22:30)
[2024-03-29] MEDS: METHENAMINE HIPPURATE 1GM TABLET PO SCH (23:23)
[2024-03-29] MEDS: LATANOPROST 0.005% OPHTH SOLN 2.5 ML OU SCH (23:23)
[2024-03-30 06:29] LABS: HEMATOCRIT 31.4 % (36.0-47.0); HEMOGLOBIN 9.7 g/dl (12.0-15.5); MEAN CORPUSCULAR HGB CONC 30.9 g/dl (32.0-36.5); MEAN CORPUSCULAR VOLUME 93.7 fl (80.0-96.0); PLATELET COUNT, AUTOMATED 272 10^3/uL (150-450); RED BLOOD COUNT 3.35 10^6/uL (4.00-5.40); WHITE BLOOD COUNT 15.2 10^3/uL (4.0-10.0)
[2024-03-30 06:54] LABS: CALCIUM LEVEL 9.8 MG/DL (8.3-10.6); CREATININE FOR GFR 0.99 MG/DL (0.55-1.30); GLOMERULAR FILTRATION RATE 58.7 (>39); POTASSIUM SERUM 4.1 MMOL/L (3.5-5.1)
[2024-03-30] MEDS: TIOTROPIUM INHALER/CAPSULE (SPIRIVA) INH SCH (08:30)
[2024-03-30] MEDS: PANTOPRAZOLE 40MG TAB (PROTONIX) PO SCH (08:42)
[2024-03-30] MEDS: SPIRONOLACTONE 50 MG TAB PO SCH (08:42)
[2024-03-30] MEDS: TORSEMIDE 20 MG TAB PO SCH (08:43)
[2024-03-30] MEDS: FERROUS SULFATE 325MG TAB PO SCH (08:43)
[2024-03-30] MEDS: MAGNESIUM OXIDE 400MG TAB (MAG-OX) PO SCH (08:43)
[2024-03-30] MEDS ORDERED: PRED20TA PO (08:46)
[2024-03-30] MEDS: oxyCODONE 5MG TAB PO PRN (09:04)
[2024-03-30 09:45] VITALS: O2SAT 92
[2024-03-30 09:57] VITALS: BP 132/61; TEMP 98.2
== END 2024-03-30 11:06 | disposition home or self-care (01) ==
LOC: EDBD 07:59 → M ED 07:59 → M ED INP 08:00
PROVIDERS: ADMIT Student in an Organized Health Care Education/Training Program; ATTEND Student in an Organized Health Care Education/Training Program
DX: R53.1 Weakness (principal); D72.829 Elevated white blood cell count, unspecified; R19.7 Diarrhea, unspecified; R32 Unspecified urinary incontinence; G47.33 Obstructive sleep apnea (adult) (pediatric); J44.9 Chronic obstructive pulmonary disease, unspecified; Z99.3 Dependence on wheelchair; R53.2 Functional quadriplegia; Z99.81 Dependence on supplemental oxygen; E66.01 Morbid (severe) obesity due to excess calories; Z68.42 Body mass index [BMI] 45.0-49.9, adult; I50.32 Chronic diastolic (congestive) heart failure; N18.30 Chronic kidney disease, stage 3 unspecified; W06.XXXA Fall from bed, initial encounter; Y92.092 Bedroom in other non-institutional residence as the place of occurrence of the external cause; Y93.9 Activity, unspecified; Y99.9 Unspecified external cause status; Z87.440 Personal history of urinary (tract) infections; Z86.19 Personal history of other infectious and parasitic diseases; Z85.118 Personal history of other malignant neoplasm of bronchus and lung; Z90.2 Acquired absence of lung [part of]; J96.11 Chronic respiratory failure with hypoxia; J96.12 Chronic respiratory failure with hypercapnia; I27.20 Pulmonary hypertension, unspecified; K21.9 Gastro-esophageal reflux disease without esophagitis; G25.81 Restless legs syndrome; M46.47 Discitis, unspecified, lumbosacral region; M46.27 Osteomyelitis of vertebra, lumbosacral region; F11.20 Opioid dependence, uncomplicated; Z90.49 Acquired absence of other specified parts of digestive tract; Z87.891 Personal history of nicotine dependence; Z98.890 Other specified postprocedural states; Z87.81 Personal history of (healed) traumatic fracture; Z98.1 Arthrodesis status; K59.04 Chronic idiopathic constipation; D64.9 Anemia, unspecified; F39 Unspecified mood [affective] disorder; E78.5 Hyperlipidemia, unspecified; Z86.711 Personal history of pulmonary embolism; Z88.8 Allergy status to other drugs, medicaments and biological substances; Z79.899 Other long term (current) drug therapy; Z79.01 Long term (current) use of anticoagulants; Z79.51 Long term (current) use of inhaled steroids; Z79.84 Long term (current) use of oral hypoglycemic drugs
CPT/HCPCS: 36415; 36600; 70450; 71045; 71275; 80048; 80076; 81001; 82550; 82803; 83605; 83880; 84443; 85025; 85027; 87040; 87486; 87507; 87581; 87633; 87798; 93005; 93041; 93971; 94640; 94760; 96374; 97161; 97530; 99285; G0378; J2919; Q9967

== ENCOUNTER 2024-04-22 00:36 | Observation (INO) | payer MEDICARE, BC ==
[~2024-04-22] VITALS: Ht 154.9 cm; Wt 115.6 kg
[~2024-04-22 00:36] MED LIST changes: +BUDE0.5S6 INH; +CALC600T61 PO; +METH-855 PO
[2024-04-22 01:18] LABS: VENOUS BASE EXCESS -0.2 (-2.0-2.0); VENOUS HCO3 26.1 MMOL/L (23.0-27.0); VENOUS O2 SATURATION 68.7 % (60.0-80.0); VENOUS PARTIAL PRESSURE CO2 50.2 mmHg (38.0-50.0); VENOUS PARTIAL PRESSURE O2 37.5 mmHg (30.0-50.0); VENOUS PH 7.334 UNITS (7.330-7.430); VENOUS STANDARD HCO3 23.7 MMOL/L; VENOUS TOTAL CO2 27.7 MMOL/L (24.0-28.0)
[2024-04-22 01:23] LABS: BASO # 0.1 10^3/uL (0.0-0.2); BASO % 0.3 % (0.0-1.0); EOS # 0.1 10^3/uL (0.0-0.5); EOS % 0.4 % (0.0-3.0); HEMATOCRIT 34.2 % (36.0-47.0); HEMOGLOBIN 10.6 g/dl (12.0-15.5); LYMPH % 5.2 % (24.0-44.0); MEAN CORPUSCULAR HEMOGLOBIN 28.8 pg (27.0-33.0); MEAN CORPUSCULAR VOLUME 92.9 fl (80.0-96.0); MONO # 0.9 10^3/uL (0.0-0.8); MONO % 4.5 % (2.0-8.0); NEUTROPHILS # 17.7 10^3/uL (1.5-8.5); PLATELET COUNT, AUTOMATED 257 10^3/uL (150-450); RED BLOOD COUNT 3.68 10^6/uL (4.00-5.40); WHITE BLOOD COUNT 19.9 10^3/uL (4.0-10.0)
[2024-04-22] MEDS: ACETAMINOPHEN 325 MG TAB PO ONE (01:24)
[2024-04-22 01:49] LABS: ALBUMIN 3.5 G/DL (3.2-5.2); ALKALINE PHOSPHATASE 89 U/L (35-104); ALT/SGPT 12 U/L (7.0-40); AST/SGOT < 8 U/L (<34); BILIRUBIN,DIRECT < 0.1 MG/DL (<0.4); BILIRUBIN,TOTAL 0.3 MG/DL (0.3-1.2); BLOOD UREA NITROGEN 35 MG/DL (9-23); CALCIUM LEVEL 9.6 MG/DL (8.3-10.6); CARBON DIOXIDE LEVEL 27 MMOL/L (20-31); CHLORIDE LEVEL 101 MMOL/L (98-107); CK-MB VALUE MASS < 1.0 NG/ML (<3.6); CPK CREATINE PHOSPHOKINASE 29 U/L (34-145); CREATININE FOR GFR 1.11 MG/DL (0.55-1.30); GLOMERULAR FILTRATION RATE 51.4 (>39); GLUCOSE, FASTING 92 MG/DL (74-106); MB/CK RELATIVE INDEX 3.44 (< OR =4); POTASSIUM SERUM 4.5 MMOL/L (3.5-5.1); SODIUM LEVEL 137 MMOL/L (136-145); TOTAL PROTEIN 7.1 G/DL (5.7-8.2)
[2024-04-22] MEDS ORDERED: ISOVUE-370 76% 100ML VIAL As Ordered ONE (02:25)
[2024-04-22 02:48] LABS: CK-MB VALUE MASS < 1.0 NG/ML (<3.6)
[2024-04-22 02:49] LABS: CPK CREATINE PHOSPHOKINASE 28 U/L (34-145); MB/CK RELATIVE INDEX 3.57 (< OR =4)
[2024-04-22 03:17] LABS: PROCALCITONIN 0.33 ng/ml
[2024-04-22] MEDS: PIPERACILLIN/TAZOBACTAM SOD 4.5 GM in DEXTROSE 5% (D5W) ADV/MINI-BAG 50 ML IV ONE (04:18)
[2024-04-22] MEDS ORDERED: ALBUTEROL SULFATE 2.5MG/0.5ML INH NEB SOLN NEB PRN ×2 (05:00→05:15)
[2024-04-22] MEDS ORDERED: SILV50CR TOP (05:48)
[2024-04-22] MEDS ORDERED: DOXY100C3 PO (05:48)
[2024-04-22] MEDS ORDERED: HOME MED LIST COMPLETE! XX SCH (05:50)
[2024-04-22] MEDS ORDERED: MIRALAX *UNIT DOSE* 17GM PACKET PO PRN (06:05)
[2024-04-22] MEDS ORDERED: DEXTROSE 50% 50ML SYRINGE IV PRN (06:10)
[2024-04-22] MEDS ORDERED: GLUCOSE 4 GM CHEW PO PRN (06:10)
[2024-04-22] MEDS ORDERED: GLUCAGON INJ 1MG VIAL SC PRN (06:10)
[2024-04-22] MEDS: IPRATROPIUM 0.5MG/ALBUTEROL 2.5MG INH SOL UD 3ML (DUONEB) NEB SCH (07:29)
[2024-04-22] MEDS: INSULIN LISPRO (NovoLOG) PER UNIT SC SCH ×2 (07:30→20:57)
[2024-04-22] MEDS: TIOTROPIUM INHALER/CAPSULE (SPIRIVA) INH SCH (08:00)
[2024-04-22] MEDS ORDERED: IPRATROPIUM 0.02% SOLN 0.5MG 2.5ML NEB NEB SCH (08:00)
[2024-04-22] MEDS: FERROUS SULFATE 325MG TAB PO SCH (08:18)
[2024-04-22] MEDS: SPIRONOLACTONE 50 MG TAB PO SCH (08:18)
[2024-04-22] MEDS: PANTOPRAZOLE 40MG TAB (PROTONIX) PO SCH (08:18)
[2024-04-22] MEDS: TORSEMIDE 20 MG TAB PO SCH ×2 (08:18→20:59)
[2024-04-22] MEDS: predniSONE 20 MG TAB PO SCH (08:18)
[2024-04-22] MEDS: GABAPENTIN 100 MG CAP PO SCH (08:18)
[2024-04-22] MEDS: OLANZapine 5 MG TAB PO SCH (08:19)
[2024-04-22] MEDS: MAGNESIUM OXIDE 400MG TAB (MAG-OX) PO SCH (08:19)
[2024-04-22] MEDS: DOCUSATE SODIUM 100MG CAPSULE PO SCH (08:19)
[2024-04-22] MEDS: APIXABAN 5 MG TAB (ELIQUIS) PO SCH (08:19)
[2024-04-22] MEDS ORDERED: POTASSIUM CHLORIDE 10MEQ SR TABLET PO SCH (09:00)
[2024-04-22] MEDS ORDERED: ONDANSETRON 4MG ORAL DISINTEGRATING TAB PO PRN (09:50)
[2024-04-22] MEDS ORDERED: SUMAtriptan SUCCINATE 25 MG TAB PO PRN (09:50)
[2024-04-22] MEDS: SILVER SULFADIAZINE 1% CR 50 GM JAR TOP SCH (13:00)
[2024-04-22] MEDS: VITAMIN D 1,000 INTERNATIONAL UNITS TABLET PO SCH (13:01)
[2024-04-22] MEDS: SENNA 8.6 MG TAB (SENOKOT) PO SCH (13:01)
[2024-04-22] MEDS: ASCORBIC ACID 500 MG TAB PO SCH (13:01)
[2024-04-22] MEDS: PIPERACILLIN/TAZOBACTAM SOD 4.5 GM in DEXTROSE 5% (D5W) ADV/MINI-BAG 50 ML IV SCH (13:37)
[2024-04-22] MEDS: ADVAIR HFA 230/21MCG INHALER INH SCH (13:53)
[2024-04-22 15:00] VITALS: BP 147/76; TEMP 97.3; O2SAT 95
[2024-04-22] MEDS ORDERED: SYMBICORT 160/4.5MCG INHALER 6GM INH SCH (20:00)
[2024-04-22 20:12] VITALS: BP 152/58; TEMP 97; O2SAT 95
[2024-04-22] MEDS: ATORVASTATIN 20 MG TAB PO SCH (20:59)
[2024-04-22] MEDS ORDERED: DOCUSATE SODIUM 100MG CAPSULE PO SCH (21:00)
[2024-04-22] MEDS: ACETAMINOPHEN 325 MG TAB PO PRN (23:14)
[2024-04-23 04:21] VITALS: BP 147/66; TEMP 96.8; O2SAT 96
[2024-04-23 06:35] LABS: HEMATOCRIT 31.4 % (36.0-47.0); HEMOGLOBIN 9.7 g/dl (12.0-15.5); MEAN CORPUSCULAR HEMOGLOBIN 28.5 pg (27.0-33.0); MEAN CORPUSCULAR HGB CONC 30.9 g/dl (32.0-36.5); MEAN CORPUSCULAR VOLUME 92.4 fl (80.0-96.0); PLATELET COUNT, AUTOMATED 243 10^3/uL (150-450); WHITE BLOOD COUNT 14.1 10^3/uL (4.0-10.0)
[2024-04-23] MEDS ORDERED: oxyCODONE 5MG TAB PO PRN (08:50)
[2024-04-23 10:48] LABS: ALBUMIN 3.2 G/DL (3.2-5.2); ALKALINE PHOSPHATASE 75 U/L (35-104); ALT/SGPT 11 U/L (7.0-40); AST/SGOT < 8 U/L (<34); BILIRUBIN,TOTAL 0.2 MG/DL (0.3-1.2); BLOOD UREA NITROGEN 31 MG/DL (9-23); CALCIUM LEVEL 9.1 MG/DL (8.3-10.6); CARBON DIOXIDE LEVEL 29 MMOL/L (20-31); CHLORIDE LEVEL 103 MMOL/L (98-107); CREATININE FOR GFR 1.01 MG/DL (0.55-1.30); GLOMERULAR FILTRATION RATE 57.4 (>39); GLUCOSE, FASTING 138 MG/DL (74-106); POTASSIUM SERUM 3.8 MMOL/L (3.5-5.1); SODIUM LEVEL 140 MMOL/L (136-145); TOTAL PROTEIN 6.7 G/DL (5.7-8.2)
[2024-04-23 10:52] LABS: PROCALCITONIN 0.38 ng/ml
[2024-04-23] MEDS ORDERED: CEFD300CAP PO (11:47)
[2024-04-23] MEDS ORDERED: PRED10TA2 PO (11:47)
[2024-04-23] MEDS ORDERED: LEVO75TAB PO (11:47)
== END 2024-04-23 14:30 | disposition home health service (06) ==
LOC: EDBD 00:36 → M ED 00:36 → M ED INP 04:29 → INTOOBSV 04:29 → M MS5PR 14:55
PROVIDERS: ADMIT Student in an Organized Health Care Education/Training Program; ATTEND Internal Medicine
DX: J44.1 Chronic obstructive pulmonary disease with (acute) exacerbation (principal); J96.11 Chronic respiratory failure with hypoxia; Z99.81 Dependence on supplemental oxygen; E87.20 Acidosis, unspecified; L89.322 Pressure ulcer of left buttock, stage 2; R54 Age-related physical debility; M86.9 Osteomyelitis, unspecified; I50.30 Unspecified diastolic (congestive) heart failure; I27.20 Pulmonary hypertension, unspecified; Z86.16 Personal history of COVID-19; E66.01 Morbid (severe) obesity due to excess calories; M51.35 Other intervertebral disc degeneration, thoracolumbar region; Z98.1 Arthrodesis status; Z86.19 Personal history of other infectious and parasitic diseases; E11.22 Type 2 diabetes mellitus with diabetic chronic kidney disease; E78.5 Hyperlipidemia, unspecified; N18.30 Chronic kidney disease, stage 3 unspecified; Z87.891 Personal history of nicotine dependence; Z80.1 Family history of malignant neoplasm of trachea, bronchus and lung; Z90.2 Acquired absence of lung [part of]; Z86.711 Personal history of pulmonary embolism; Z88.8 Allergy status to other drugs, medicaments and biological substances; Z79.899 Other long term (current) drug therapy; Z79.01 Long term (current) use of anticoagulants; Z79.51 Long term (current) use of inhaled steroids; Z79.2 Long term (current) use of antibiotics
CPT/HCPCS: 36415; 71045; 71275; 80048; 80053; 80076; 81001; 82550; 82553; 82803; 83605; 83735; 83880; 84145; 84484; 85025; 85027; 87040; 87077; 87086; 87154; 87186; 87486; 87581; 87633; 87798; 93005; 93041; 94640; 94760; 96365; 96376; 99285; G0378; J1815; J2543; J7512; Q9967

== ENCOUNTER 2024-07-22 15:49 | Inpatient (IN) | payer MEDICARE, BC ==
[~2024-07-22] VITALS: Ht 152.4 cm; Wt 112.6 kg
[~2024-07-22 15:49] MED LIST changes: +ADVA1AER9 INH; +DOXY100C3 PO; +LEVO75TAB PO; +SILV50CR TOP; +VANC125C13 PO; -VANC125C3 PO
[2024-07-22 16:41] LABS: ABG BASE EXCESS -0.6 (-2.0-2.0); ABG HCO3 25.1 MMOL/L (22.0-26.0); ABG O2 SATURATION 93.2 % (95.0-99.0); ABG PARTIAL PRESSURE CO2 45.6 mmHg (35.0-45.0); ABG PARTIAL PRESSURE O2 69.6 mmHg (75.0-100.0); ABG STANDARD HCO3 23.9 MMOL/L. (22.0-26.0); ABG TOTAL CO2 26.5 MMOL/L (23.0-31.0); ABG pH (ARTERIAL) 7.358 UNITS (7.350-7.450)
[2024-07-22 18:08] LABS: BASO # 0.1 10^3/uL (0.0-0.2); BASO % 0.2 % (0.0-1.0); EOS # 0.6 10^3/uL (0.0-0.5); EOS % 2.2 % (0.0-3.0); HEMATOCRIT 32.3 % (36.0-47.0); HEMOGLOBIN 9.8 g/dl (12.0-15.5); LYMPH # 1.3 10^3/uL (1.5-5.0); LYMPH % 4.9 % (24.0-44.0); MEAN CORPUSCULAR HEMOGLOBIN 29.3 pg (27.0-33.0); MEAN CORPUSCULAR HGB CONC 30.3 g/dl (32.0-36.5); MEAN CORPUSCULAR VOLUME 96.7 fl (80.0-96.0); MONO # 1.7 10^3/uL (0.0-0.8); MONO % 6.6 % (2.0-8.0); NEUTROPHILS # 21.6 10^3/uL (1.5-8.5); NEUTROPHILS % 85.2 % (36.0-66.0); PLATELET COUNT, AUTOMATED 241 10^3/uL (150-450); RED BLOOD COUNT 3.34 10^6/uL (4.00-5.40); WHITE BLOOD COUNT 25.4 10^3/uL (4.0-10.0)
[2024-07-22 18:20] LABS: INR 1.35; PROTHROMBIN TIME 16.9 SECONDS (12.5-14.5)
[2024-07-22] MEDS ORDERED: HEPARIN SOD (PORCINE) 5000UNITS/ML 1ML VIAL/SYRINGE SC SCH (18:25)
[2024-07-22 18:42] LABS: ALBUMIN 3.5 G/DL (3.2-5.2); ALKALINE PHOSPHATASE 100 U/L (35-104); ALT/SGPT 12 U/L (7.0-40); AST/SGOT 12 U/L (<34); BILIRUBIN,DIRECT < 0.1 MG/DL (<0.4); BILIRUBIN,TOTAL 0.2 MG/DL (0.3-1.2); BLOOD UREA NITROGEN 27 MG/DL (9-23); CALCIUM LEVEL 8.6 MG/DL (8.3-10.6); CARBON DIOXIDE LEVEL 27 MMOL/L (20-31); CHLORIDE LEVEL 102 MMOL/L (98-107); CK-MB VALUE MASS < 1.0 NG/ML (<3.6); CPK CREATINE PHOSPHOKINASE 44 U/L (34-145); CREATININE FOR GFR 1.13 MG/DL (0.55-1.30); GLOMERULAR FILTRATION RATE 50.2 (>39); GLUCOSE, FASTING 88 MG/DL (74-106); MB/CK RELATIVE INDEX 2.27 (< OR =4); POTASSIUM SERUM 4.5 MMOL/L (3.5-5.1); SODIUM LEVEL 136 MMOL/L (136-145); TOTAL PROTEIN 7.3 G/DL (5.7-8.2)
[2024-07-22] MEDS ORDERED: MIRALAX *UNIT DOSE* 17GM PACKET PO PRN (19:50)
[2024-07-22 20:20] VITALS: BP 146/70; TEMP 98.7; O2SAT 94
[2024-07-22] MEDS: FORMOTEROL FUMARATE 20 MCG/2 ML INHALATION SOLUTION (PERFOROMIST) INH SCH (20:23)
[2024-07-22] MEDS: GLYCOPYRROLATE INJ 0.2 MG/ML 2 ML VIAL NEB SCH (20:23)
[2024-07-22] MEDS: DOCUSATE SODIUM 100MG CAPSULE PO SCH (20:28)
[2024-07-22] MEDS: SENNA 8.6 MG TAB (SENOKOT) PO SCH (20:28)
[2024-07-22] MEDS: PIPERACILLIN/TAZOBACTAM SOD 4.5 GM in DEXTROSE 5% (D5W) ADV/MINI-BAG 50 ML IV SCH (20:36)
[2024-07-22] MEDS: FUROSEMIDE 100MG/10ML VIAL IV ONE (20:36)
[2024-07-22 21:00] VITALS: BP 158/73; O2SAT 95
[2024-07-22 21:23] LABS: CK-MB VALUE MASS < 1.0 NG/ML (<3.6)
[2024-07-22 21:24] LABS: CPK CREATINE PHOSPHOKINASE 41 U/L (34-145); MB/CK RELATIVE INDEX 2.43 (< OR =4)
[2024-07-22] MEDS: AZITHROMYCIN INJ 500 MG, VIAL MATE ADAPTER 1 EACH in NS 250 ML IV SCH (21:32)
[2024-07-22 22:01] VITALS: BP 145/61; O2SAT 95
[2024-07-22] MEDS: VANCOMYCIN HCL 1,500 MG, VIAL MATE ADAPTER 1 EACH in NS 500 ML IV ONE (22:59)
[2024-07-22 23:01] VITALS: BP 130/56; O2SAT 94
[2024-07-23] VITALS (13 sets, daily range): BP systolic 122–154; BP diastolic 58–83; TEMP 97.3–98.5; O2SAT 92–97
[2024-07-23 04:29] LABS: BASO # 0.1 10^3/uL (0.0-0.2); BASO % 0.2 % (0.0-1.0); EOS # 0.2 10^3/uL (0.0-0.5); EOS % 1.1 % (0.0-3.0); HEMATOCRIT 30.3 % (36.0-47.0); HEMOGLOBIN 9.6 g/dl (12.0-15.5); LYMPH # 1.2 10^3/uL (1.5-5.0); LYMPH % 5.7 % (24.0-44.0); MEAN CORPUSCULAR HEMOGLOBIN 29.9 pg (27.0-33.0); MEAN CORPUSCULAR HGB CONC 31.7 g/dl (32.0-36.5); MEAN CORPUSCULAR VOLUME 94.4 fl (80.0-96.0); MONO # 1.5 10^3/uL (0.0-0.8); MONO % 6.9 % (2.0-8.0); NEUTROPHILS # 18.3 10^3/uL (1.5-8.5); NEUTROPHILS % 85.5 % (36.0-66.0); PLATELET COUNT, AUTOMATED 234 10^3/uL (150-450); RED BLOOD COUNT 3.21 10^6/uL (4.00-5.40); WHITE BLOOD COUNT 21.4 10^3/uL (4.0-10.0)
[2024-07-23 05:11] LABS: ALBUMIN 3.1 G/DL (3.2-5.2); ALKALINE PHOSPHATASE 93 U/L (35-104); ALT/SGPT 13 U/L (7.0-40); AST/SGOT < 8 U/L (<34); BILIRUBIN,TOTAL 0.4 MG/DL (0.3-1.2); BLOOD UREA NITROGEN 24 MG/DL (9-23); CALCIUM LEVEL 8.7 MG/DL (8.3-10.6); CARBON DIOXIDE LEVEL 29 MMOL/L (20-31); CHLORIDE LEVEL 105 MMOL/L (98-107); CREATININE FOR GFR 1.05 MG/DL (0.55-1.30); GLOMERULAR FILTRATION RATE 54.7 (>39); GLUCOSE, FASTING 110 MG/DL (74-106); MAGNESIUM LEVEL 1.8 MG/DL (1.8-2.4); PHOSPHORUS LEVEL 3.7 MG/DL (2.4-5.1); SODIUM LEVEL 144 MMOL/L (136-145); TOTAL PROTEIN 6.5 G/DL (5.7-8.2)
[2024-07-23] MEDS ORDERED: ONDA-84 PO (07:05)
[2024-07-23] MEDS ORDERED: METF-877 PO (07:05)
[2024-07-23] MEDS ORDERED: HOME MED LIST COMPLETE! XX SCH (07:10)
[2024-07-23] MEDS ORDERED: VANCOMYCIN HCL 1,000 MG, VIAL MATE ADAPTER 1 EACH in NS 250 ML IV SCH (08:00)
[2024-07-23 08:01] LABS: VANCOMYCIN RANDOM 18.7 UG/ML
[2024-07-23] MEDS: VANCOMYCIN HCL 1,250 MG, VIAL MATE ADAPTER 1 EACH in NS 250 ML IV SCH (10:33)
[2024-07-23] MEDS: FUROSEMIDE 100MG/10ML VIAL IV ONE (10:34)
[2024-07-23] MEDS: PANTOPRAZOLE 40MG VIAL IV SCH (10:34)
[2024-07-23] MEDS: GABAPENTIN 100 MG CAP PO SCH (10:38)
[2024-07-23] MEDS: APIXABAN 5 MG TAB (ELIQUIS) PO SCH (10:38)
[2024-07-23] MEDS: OLANZapine 5 MG TAB PO SCH (10:38)
[2024-07-23] MEDS: PERCOCET 5MG/325MG TAB PO PRN (10:38)
[2024-07-23] MEDS: AZITHROMYCIN 250MG TABLET PO SCH (21:27)
[2024-07-23] MEDS: SUMAtriptan SUCCINATE 50MG TABLET PO PRN (21:32)
[2024-07-23 23:12] LABS: PROCALCITONIN 0.38 ng/ml
[2024-07-23] MEDS: IPRATROPIUM 0.5MG/ALBUTEROL 2.5MG INH SOL UD 3ML (DUONEB) NEB ONE (23:49)
[2024-07-24] VITALS (26 sets, daily range): BP systolic 125–156; BP diastolic 57–74; TEMP 96.8–98.7; O2SAT 84–98
[2024-07-24 06:44] LABS: BASO # 0.1 10^3/uL (0.0-0.2); BASO % 0.3 % (0.0-1.0); EOS # 0.6 10^3/uL (0.0-0.5); EOS % 3.5 % (0.0-3.0); HEMATOCRIT 32.3 % (36.0-47.0); HEMOGLOBIN 9.9 g/dl (12.0-15.5); LYMPH # 1.3 10^3/uL (1.5-5.0); MEAN CORPUSCULAR HEMOGLOBIN 29.3 pg (27.0-33.0); MEAN CORPUSCULAR HGB CONC 30.7 g/dl (32.0-36.5); MEAN CORPUSCULAR VOLUME 95.6 fl (80.0-96.0); MONO # 1.1 10^3/uL (0.0-0.8); MONO % 7.2 % (2.0-8.0); NEUTROPHILS # 12.8 10^3/uL (1.5-8.5); NEUTROPHILS % 80.4 % (36.0-66.0); PLATELET COUNT, AUTOMATED 261 10^3/uL (150-450); RED BLOOD COUNT 3.38 10^6/uL (4.00-5.40); WHITE BLOOD COUNT 15.9 10^3/uL (4.0-10.0)
[2024-07-24 06:58] LABS: ALBUMIN 2.9 G/DL (3.2-5.2); ALKALINE PHOSPHATASE 93 U/L (35-104); ALT/SGPT 13 U/L (7.0-40); AST/SGOT < 8 U/L (<34); BILIRUBIN,TOTAL 0.3 MG/DL (0.3-1.2); BLOOD UREA NITROGEN 19 MG/DL (9-23); CALCIUM LEVEL 8.8 MG/DL (8.3-10.6); CARBON DIOXIDE LEVEL 31 MMOL/L (20-31); CHLORIDE LEVEL 106 MMOL/L (98-107); CREATININE FOR GFR 1.04 MG/DL (0.55-1.30); GLOMERULAR FILTRATION RATE 55.3 (>39); GLUCOSE, FASTING 120 MG/DL (74-106); POTASSIUM SERUM 4.2 MMOL/L (3.5-5.1); SODIUM LEVEL 145 MMOL/L (136-145); TOTAL PROTEIN 6.6 G/DL (5.7-8.2)
[2024-07-24] MEDS: PANTOPRAZOLE 40MG TAB (PROTONIX) PO SCH (09:08)
[2024-07-24] MEDS: LevoFLOXacin 750 MG TABLET PO SCH (14:55)
[2024-07-25] VITALS (11 sets, daily range): BP systolic 139–148; BP diastolic 60–87; TEMP 96.2–98.8; O2SAT 90–95
[2024-07-25 06:25] LABS: BASO # 0.1 10^3/uL (0.0-0.2); BASO % 0.4 % (0.0-1.0); EOS # 0.6 10^3/uL (0.0-0.5); EOS % 3.9 % (0.0-3.0); HEMATOCRIT 31.9 % (36.0-47.0); HEMOGLOBIN 9.9 g/dl (12.0-15.5); LYMPH # 1.5 10^3/uL (1.5-5.0); MEAN CORPUSCULAR HEMOGLOBIN 29.5 pg (27.0-33.0); MEAN CORPUSCULAR VOLUME 94.9 fl (80.0-96.0); MONO # 1.3 10^3/uL (0.0-0.8); MONO % 8.8 % (2.0-8.0); NEUTROPHILS % 75.6 % (36.0-66.0); PLATELET COUNT, AUTOMATED 284 10^3/uL (150-450); RED BLOOD COUNT 3.36 10^6/uL (4.00-5.40); WHITE BLOOD COUNT 14.5 10^3/uL (4.0-10.0)
[2024-07-25 06:43] LABS: ALKALINE PHOSPHATASE 90 U/L (35-104); ALT/SGPT 17 U/L (7.0-40); AST/SGOT 12 U/L (<34); BILIRUBIN,TOTAL 0.2 MG/DL (0.3-1.2); BLOOD UREA NITROGEN 14 MG/DL (9-23); CALCIUM LEVEL 9.1 MG/DL (8.3-10.6); CARBON DIOXIDE LEVEL 28 MMOL/L (20-31); CHLORIDE LEVEL 107 MMOL/L (98-107); GLOMERULAR FILTRATION RATE > 60.0 (>39); GLUCOSE, FASTING 109 MG/DL (74-106); POTASSIUM SERUM 3.9 MMOL/L (3.5-5.1); SODIUM LEVEL 145 MMOL/L (136-145); TOTAL PROTEIN 6.6 G/DL (5.7-8.2)
[2024-07-25] MEDS ORDERED: LEVO75TAB PO (15:25)
[2024-07-25] MEDS: NEOSPORIN OINT 0.9 GM PKT TOP STA (15:59)
[2024-07-25] MEDS ORDERED: ASCORBIC ACID 500 MG TAB PO SCH (21:00)
[2024-07-25] MEDS ORDERED: ATORVASTATIN 20 MG TAB PO SCH (21:00)
[2024-07-25] MEDS ORDERED: APIXABAN 5 MG TAB (ELIQUIS) PO SCH (21:00)
[2024-07-26] MEDS ORDERED: TORSEMIDE 20 MG TAB PO SCH (09:00)
[2024-07-26] MEDS ORDERED: SPIRONOLACTONE 50 MG TAB PO SCH (09:00)
== END 2024-07-25 16:09 | disposition home health service (06) | DRG 193 ==
LOC: M ED 15:49 → EDBD 15:49 → EEVIPCON 18:22 → M ED INP 18:22 → M ICU 20:09 → M PCU 07-24 15:03
PROVIDERS: ADMIT Internal Medicine Pulmonary Disease; ATTEND Internal Medicine Pulmonary Disease
PROC: 02HV33Z Insertion of Infusion Device into Superior Vena Cava, Percutaneous Approach (ICD-10-PCS; principal; 2024-07-22)
DX: J18.9 Pneumonia, unspecified organism (principal); J96.21 Acute and chronic respiratory failure with hypoxia; I50.33 Acute on chronic diastolic (congestive) heart failure; J96.22 Acute and chronic respiratory failure with hypercapnia; M46.25 Osteomyelitis of vertebra, thoracolumbar region; J44.0 Chronic obstructive pulmonary disease with (acute) lower respiratory infection; E66.2 Morbid (severe) obesity with alveolar hypoventilation; Z68.43 Body mass index [BMI] 50.0-59.9, adult; I27.20 Pulmonary hypertension, unspecified; G25.81 Restless legs syndrome; K21.9 Gastro-esophageal reflux disease without esophagitis; N18.30 Chronic kidney disease, stage 3 unspecified; Z90.49 Acquired absence of other specified parts of digestive tract; Z90.2 Acquired absence of lung [part of]; Z85.118 Personal history of other malignant neoplasm of bronchus and lung; Z87.891 Personal history of nicotine dependence; Z99.3 Dependence on wheelchair; G89.29 Other chronic pain; M10.9 Gout, unspecified; Z79.01 Long term (current) use of anticoagulants; Z79.84 Long term (current) use of oral hypoglycemic drugs; Z79.899 Other long term (current) drug therapy; Z88.8 Allergy status to other drugs, medicaments and biological substances

== ENCOUNTER 2024-07-27 14:11 | Inpatient (IN) | payer MEDICARE, BC ==
[~2024-07-27] VITALS: Ht 152.4 cm; Wt 110.5 kg
[2024-07-27 15:11] LABS: BASO # 0.1 10^3/uL (0.0-0.2); BASO % 0.4 % (0.0-1.0); EOS # 0.5 10^3/uL (0.0-0.5); EOS % 3.2 % (0.0-3.0); HEMATOCRIT 34.1 % (36.0-47.0); HEMOGLOBIN 10.3 g/dl (12.0-15.5); LYMPH # 1.6 10^3/uL (1.5-5.0); LYMPH % 10.2 % (24.0-44.0); MEAN CORPUSCULAR HEMOGLOBIN 29.3 pg (27.0-33.0); MEAN CORPUSCULAR HGB CONC 30.2 g/dl (32.0-36.5); MEAN CORPUSCULAR VOLUME 96.9 fl (80.0-96.0); MONO % 6.4 % (2.0-8.0); NEUTROPHILS # 12.2 10^3/uL (1.5-8.5); NEUTROPHILS % 76.4 % (36.0-66.0); PLATELET COUNT, AUTOMATED 285 10^3/uL (150-450); RED BLOOD COUNT 3.52 10^6/uL (4.00-5.40)
[2024-07-27 15:17] LABS: ABG BASE EXCESS 1.5 (-2.0-2.0); ABG HCO3 28.7 MMOL/L (22.0-26.0); ABG O2 SATURATION 90.4 % (95.0-99.0); ABG PARTIAL PRESSURE CO2 56.4 mmHg (35.0-45.0); ABG PARTIAL PRESSURE O2 59.1 mmHg (75.0-100.0); ABG STANDARD HCO3 25.7 MMOL/L. (22.0-26.0); ABG TOTAL CO2 30.4 MMOL/L (23.0-31.0); ABG pH (ARTERIAL) 7.324 UNITS (7.350-7.450)
[2024-07-27 15:24] LABS: INR 1.49; PARTIAL THROMBOPLASTIN TIME 35.9 SECONDS (24.8-34.2); PROTHROMBIN TIME 18.2 SECONDS (12.5-14.5)
[2024-07-27 15:33] LABS: CK-MB VALUE MASS < 1.0 NG/ML (<3.6)
[2024-07-27 15:37] LABS: ALBUMIN 3.3 G/DL (3.2-5.2); ALKALINE PHOSPHATASE 95 U/L (35-104); ALT/SGPT 21 U/L (7.0-40); AST/SGOT 15 U/L (<34); BILIRUBIN,DIRECT < 0.1 MG/DL (<0.4); BILIRUBIN,TOTAL 0.2 MG/DL (0.3-1.2); BLOOD UREA NITROGEN 25 MG/DL (9-23); CALCIUM LEVEL 8.8 MG/DL (8.3-10.6); CARBON DIOXIDE LEVEL 29 MMOL/L (20-31); CHLORIDE LEVEL 102 MMOL/L (98-107); CPK CREATINE PHOSPHOKINASE 51 U/L (34-145); CREATININE FOR GFR 1.38 MG/DL (0.55-1.30); GLOMERULAR FILTRATION RATE 39.9 (>39); GLUCOSE, FASTING 84 MG/DL (74-106); MB/CK RELATIVE INDEX 1.96 (< OR =4); POTASSIUM SERUM 4.6 MMOL/L (3.5-5.1); SODIUM LEVEL 142 MMOL/L (136-145)
[2024-07-27] MEDS ORDERED: ISOVUE-370 76% 100ML VIAL As Ordered ONE (16:02)
[2024-07-27] MEDS ORDERED: HOME MED LIST COMPLETE! XX SCH (17:35)
[2024-07-27] MEDS: PIPERACILLIN/TAZOBACTAM SOD 4.5 GM in DEXTROSE 5% (D5W) ADV/MINI-BAG 50 ML IV ONE (17:35)
[2024-07-27 17:56] LABS: KETONE, URINE AUTO RFX NEGATIVE (NEGATIVE); LEUKOCYTE ESTERASE UR AUTO RFX NEGATIVE (NEGATIVE); NITRITE, URINE AUTO RFX NEGATIVE (NEGATIVE); RBC, URINE AUTO RFX 0 /HPF (0-3); SQUAM EPITHELIAL CELL UR AURFX 0 /HPF (0-6); WBC, URINE AUTO RFX 0 /HPF (0-3)
[2024-07-27] MEDS: IPRATROPIUM 0.5MG/ALBUTEROL 2.5MG INH SOL UD 3ML (DUONEB) NEB SCH (19:12)
[2024-07-27] MEDS: IPRATROPIUM 0.5MG/ALBUTEROL 2.5MG INH SOL UD 3ML (DUONEB) NEB ONE (19:14)
[2024-07-27 20:11] LABS: ABG BASE EXCESS -0.2 (-2.0-2.0); ABG HCO3 26.2 MMOL/L (22.0-26.0); ABG O2 SATURATION 98.4 % (95.0-99.0); ABG PARTIAL PRESSURE CO2 50.9 mmHg (35.0-45.0); ABG PARTIAL PRESSURE O2 194.8 mmHg (75.0-100.0); ABG STANDARD HCO3 24.4 MMOL/L. (22.0-26.0); ABG TOTAL CO2 27.7 MMOL/L (23.0-31.0); ABG pH (ARTERIAL) 7.329 UNITS (7.350-7.450)
[2024-07-27] MEDS: ATORVASTATIN 20 MG TAB PO SCH (20:34)
[2024-07-27] MEDS: DOCUSATE SODIUM 100MG CAPSULE PO SCH (20:34)
[2024-07-27] MEDS: FUROSEMIDE 40MG/4ML VIAL IV ONE (20:34)
[2024-07-27] MEDS: GABAPENTIN 100 MG CAP PO SCH (20:34)
[2024-07-27] MEDS: CEFDINIR 300 MG CAP (OMNICEF) PO SCH (20:34)
[2024-07-27] MEDS: SENNA 8.6 MG TAB (SENOKOT) PO SCH (20:35)
[2024-07-27] MEDS: OLANZapine 5 MG TAB PO SCH (20:35)
[2024-07-27] MEDS: PERCOCET 5MG/325MG TAB PO PRN (20:35)
[2024-07-27] MEDS: FORMOTEROL FUMARATE 20 MCG/2 ML INHALATION SOLUTION (PERFOROMIST) INH SCH (20:56)
[2024-07-27] MEDS: LATANOPROST 0.005% OPHTH SOLN 2.5 ML OU SCH (20:58)
[2024-07-27] MEDS: BUDESONIDE 0.5 MG/2 ML INHALATION SUSPENSION NEB SCH (22:16)
[2024-07-28] VITALS (12 sets, daily range): BP systolic 124–147; BP diastolic 57–80; TEMP 97.6–98.1; O2SAT 88–98
[2024-07-28] MEDS: PIPERACILLIN/TAZOBACTAM SOD 3.375 GM in DEXTROSE 5% (D5W) ADV/MINI-BAG 50 ML IV SCH (00:47)
[2024-07-28 07:13] LABS: BASO # 0.1 10^3/uL (0.0-0.2); BASO % 0.5 % (0.0-1.0); EOS # 0.5 10^3/uL (0.0-0.5); EOS % 3.3 % (0.0-3.0); HEMATOCRIT 31.1 % (36.0-47.0); HEMOGLOBIN 9.7 g/dl (12.0-15.5); LYMPH # 1.8 10^3/uL (1.5-5.0); LYMPH % 12.8 % (24.0-44.0); MEAN CORPUSCULAR HEMOGLOBIN 29.5 pg (27.0-33.0); MEAN CORPUSCULAR HGB CONC 31.2 g/dl (32.0-36.5); MEAN CORPUSCULAR VOLUME 94.5 fl (80.0-96.0); MONO # 1.2 10^3/uL (0.0-0.8); MONO % 8.3 % (2.0-8.0); PLATELET COUNT, AUTOMATED 272 10^3/uL (150-450); RED BLOOD COUNT 3.29 10^6/uL (4.00-5.40); WHITE BLOOD COUNT 14.1 10^3/uL (4.0-10.0)
[2024-07-28 07:34] LABS: CALCIUM LEVEL 8.8 MG/DL (8.3-10.6); CREATININE FOR GFR 1.3 MG/DL (0.55-1.30); GLOMERULAR FILTRATION RATE 42.7 (>39); POTASSIUM SERUM 3.9 MMOL/L (3.5-5.1)
[2024-07-28] MEDS: FUROSEMIDE 100MG/10ML VIAL IV SCH (08:11)
[2024-07-28] MEDS: POTASSIUM CHLORIDE 10MEQ SR TABLET PO SCH (08:12)
[2024-07-28] MEDS: PANTOPRAZOLE 40MG TAB (PROTONIX) PO SCH (08:12)
[2024-07-28] MEDS: MAGNESIUM OXIDE 400MG TAB (MAG-OX) PO SCH (08:12)
[2024-07-28] MEDS: SPIRONOLACTONE 50 MG TAB PO SCH (08:13)
[2024-07-28] MEDS: SODIUM CHLORIDE HYPERTONIC 3% 4ML NEB SOL INH SCH (11:14)
[2024-07-29] VITALS (33 sets, daily range): BP systolic 121–155; BP diastolic 59–70; TEMP 97–98.2; O2SAT 88–97
[2024-07-29 06:27] LABS: BASO # 0.1 10^3/uL (0.0-0.2); BASO % 0.7 % (0.0-1.0); EOS # 0.6 10^3/uL (0.0-0.5); EOS % 4.6 % (0.0-3.0); HEMATOCRIT 30.8 % (36.0-47.0); HEMOGLOBIN 9.5 g/dl (12.0-15.5); LYMPH # 1.6 10^3/uL (1.5-5.0); LYMPH % 13.6 % (24.0-44.0); MEAN CORPUSCULAR HEMOGLOBIN 29.3 pg (27.0-33.0); MEAN CORPUSCULAR HGB CONC 30.8 g/dl (32.0-36.5); MEAN CORPUSCULAR VOLUME 95.1 fl (80.0-96.0); MONO # 1.1 10^3/uL (0.0-0.8); NEUTROPHILS # 8.1 10^3/uL (1.5-8.5); NEUTROPHILS % 68.2 % (36.0-66.0); PLATELET COUNT, AUTOMATED 252 10^3/uL (150-450); RED BLOOD COUNT 3.24 10^6/uL (4.00-5.40); WHITE BLOOD COUNT 11.8 10^3/uL (4.0-10.0)
[2024-07-29 07:00] LABS: CREATININE FOR GFR 1.08 MG/DL (0.55-1.30); GLOMERULAR FILTRATION RATE 52.9 (>39); POTASSIUM SERUM 4.1 MMOL/L (3.5-5.1)
[2024-07-29] MEDS: dexAMETHasone 20MG/5ML VIAL IV SCH (10:34)
[2024-07-29] MEDS: ALBUTEROL 90 MCG/ACT 8GM HFA INHALER INH PRN (17:53)
[2024-07-30] VITALS (37 sets, daily range): BP systolic 147–162; BP diastolic 63–89; TEMP 97–98.1; O2SAT 86–99
[2024-07-30 06:24] LABS: BASO % 0.2 % (0.0-1.0); EOS % 0.2 % (0.0-3.0); HEMATOCRIT 30.7 % (36.0-47.0); HEMOGLOBIN 9.5 g/dl (12.0-15.5); LYMPH # 0.8 10^3/uL (1.5-5.0); LYMPH % 4.8 % (24.0-44.0); MEAN CORPUSCULAR HEMOGLOBIN 29.1 pg (27.0-33.0); MEAN CORPUSCULAR HGB CONC 30.9 g/dl (32.0-36.5); MEAN CORPUSCULAR VOLUME 93.9 fl (80.0-96.0); MONO # 0.6 10^3/uL (0.0-0.8); MONO % 3.5 % (2.0-8.0); NEUTROPHILS # 14.4 10^3/uL (1.5-8.5); NEUTROPHILS % 88.7 % (36.0-66.0); PLATELET COUNT, AUTOMATED 256 10^3/uL (150-450); RED BLOOD COUNT 3.27 10^6/uL (4.00-5.40); WHITE BLOOD COUNT 16.3 10^3/uL (4.0-10.0)
[2024-07-30 06:39] LABS: BLOOD UREA NITROGEN 24 MG/DL (9-23); CALCIUM LEVEL 8.6 MG/DL (8.3-10.6); CARBON DIOXIDE LEVEL 30 MMOL/L (20-31); CHLORIDE LEVEL 102 MMOL/L (98-107); CREATININE FOR GFR 0.93 MG/DL (0.55-1.30); GLOMERULAR FILTRATION RATE > 60.0 (>39); GLUCOSE, FASTING 294 MG/DL (74-106); POTASSIUM SERUM 4.3 MMOL/L (3.5-5.1); SODIUM LEVEL 141 MMOL/L (136-145)
[2024-07-30 07:51] LABS: PROCALCITONIN 0.18 ng/ml
[2024-07-30] MEDS: APIXABAN 5 MG TAB (ELIQUIS) PO SCH (11:57)
[2024-07-30] MEDS ORDERED: PIPERACILLIN/TAZOBACTAM SOD 3.375 GM in DEXTROSE 5% (D5W) ADV/MINI-BAG 50 ML IV SCH ×2 (12:00→18:00)
[2024-07-30] MEDS: AUGMENTIN 875 MG TAB PO SCH (20:21)
[2024-07-31] VITALS (11 sets, daily range): BP systolic 108–175; BP diastolic 66–80; TEMP 97.3–97.7; O2SAT 88–96
[2024-07-31] MEDS: amLODIPine 5 MG TAB PO ONE (05:23)
[2024-07-31 06:33] LABS: BASO # 0.1 10^3/uL (0.0-0.2); BASO % 0.3 % (0.0-1.0); HEMATOCRIT 30.6 % (36.0-47.0); HEMOGLOBIN 9.4 g/dl (12.0-15.5); LYMPH # 1.1 10^3/uL (1.5-5.0); LYMPH % 6.4 % (24.0-44.0); MEAN CORPUSCULAR HEMOGLOBIN 28.7 pg (27.0-33.0); MEAN CORPUSCULAR HGB CONC 30.7 g/dl (32.0-36.5); MEAN CORPUSCULAR VOLUME 93.3 fl (80.0-96.0); MONO # 0.8 10^3/uL (0.0-0.8); NEUTROPHILS # 14.2 10^3/uL (1.5-8.5); PLATELET COUNT, AUTOMATED 294 10^3/uL (150-450); RED BLOOD COUNT 3.28 10^6/uL (4.00-5.40); WHITE BLOOD COUNT 16.5 10^3/uL (4.0-10.0)
[2024-07-31 06:55] LABS: CALCIUM LEVEL 9.1 MG/DL (8.3-10.6); CREATININE FOR GFR 0.98 MG/DL (0.55-1.30); GLOMERULAR FILTRATION RATE 59.2 (>39); POTASSIUM SERUM 4.4 MMOL/L (3.5-5.1)
[2024-07-31] MEDS: predniSONE 20 MG TAB PO SCH (10:05)
[2024-07-31] MEDS ORDERED: AMOX875T2 PO (10:55)
[2024-07-31] MEDS ORDERED: PRED10TA2 PO (10:55)
== END 2024-07-31 16:04 | disposition home health service (06) | DRG 871 ==
LOC: EDBD 14:11 → M ED 14:11 → M ED INP 20:17 → M PCU 07-28 05:04
PROVIDERS: ADMIT Internal Medicine Nephrology; ATTEND Internal Medicine
DX: A41.9 Sepsis, unspecified organism (principal); I50.33 Acute on chronic diastolic (congestive) heart failure; J96.22 Acute and chronic respiratory failure with hypercapnia; J96.21 Acute and chronic respiratory failure with hypoxia; J18.9 Pneumonia, unspecified organism; R53.2 Functional quadriplegia; I13.0 Hypertensive heart and chronic kidney disease with heart failure and stage 1 through stage 4 chronic kidney disease, or unspecified chronic kidney disease; J44.1 Chronic obstructive pulmonary disease with (acute) exacerbation; M46.25 Osteomyelitis of vertebra, thoracolumbar region; J44.0 Chronic obstructive pulmonary disease with (acute) lower respiratory infection; E66.2 Morbid (severe) obesity with alveolar hypoventilation; Z68.42 Body mass index [BMI] 45.0-49.9, adult; F11.20 Opioid dependence, uncomplicated; J98.11 Atelectasis; N18.30 Chronic kidney disease, stage 3 unspecified; E11.69 Type 2 diabetes mellitus with other specified complication; E11.22 Type 2 diabetes mellitus with diabetic chronic kidney disease; E78.5 Hyperlipidemia, unspecified; R04.0 Epistaxis; G89.29 Other chronic pain; D50.9 Iron deficiency anemia, unspecified; G25.81 Restless legs syndrome; F31.9 Bipolar disorder, unspecified; J98.09 Other diseases of bronchus, not elsewhere classified; I50.812 Chronic right heart failure; H40.9 Unspecified glaucoma; K21.9 Gastro-esophageal reflux disease without esophagitis; M54.9 Dorsalgia, unspecified; Z86.711 Personal history of pulmonary embolism; Z99.81 Dependence on supplemental oxygen; Z79.01 Long term (current) use of anticoagulants; Z79.899 Other long term (current) drug therapy; Z79.84 Long term (current) use of oral hypoglycemic drugs; Z88.8 Allergy status to other drugs, medicaments and biological substances; Z85.118 Personal history of other malignant neoplasm of bronchus and lung; Z90.2 Acquired absence of lung [part of]; Z98.1 Arthrodesis status; Z87.891 Personal history of nicotine dependence

== ENCOUNTER 2024-12-03 14:10 | Inpatient (IN) | payer MEDICARE, BC ==
[~2024-12-03] VITALS: Ht 154.9 cm; Wt 116.8 kg
[~2024-12-03 14:10] MED LIST changes: -AMBI10TA PO; +BACI1CAP PO; +FERR300L12 PO; -FERR5MLUD PO; +GABA-1172 PO; +LIFI1DRO4 OU; -PRED50TA PO; +PRED50TA57 PO; -XIID5DRO OU; +ZOLP-533 PO
[2024-12-03] MEDS ORDERED: HOME MED LIST COMPLETE! XX SCH (15:10)
[2024-12-03] MEDS: IPRATROPIUM 0.5 MG/ALBUTEROL 2.5 MG INH SOL UD 3 ML NEB ONE (15:24)
[2024-12-03] MEDS: ALBUTEROL SULFATE 2.5 MG/0.5 ML INH CONCENTRATE NEB SOLN INH ONE (15:24)
[2024-12-03 15:25] LABS: VENOUS BASE EXCESS -1.7 (-2.0-2.0); VENOUS HCO3 27.6 MMOL/L (23.0-27.0); VENOUS O2 SATURATION 67.2 % (60.0-80.0); VENOUS PARTIAL PRESSURE CO2 73.5 mmHg (38.0-50.0); VENOUS PARTIAL PRESSURE O2 37.2 mmHg (30.0-50.0); VENOUS PH 7.193 UNITS (7.330-7.430); VENOUS STANDARD HCO3 22.5 MMOL/L; VENOUS TOTAL CO2 29.9 MMOL/L (24.0-28.0)
[2024-12-03 15:29] LABS: BASO # 0.0 10^3/uL (0.0-0.2); BASO % 0.3 % (0.0-1.0); EOS # 0.4 10^3/uL (0.0-0.5); EOS % 4.3 % (0.0-3.0); LYMPH # 1.4 10^3/uL (1.5-5.0); LYMPH % 14.2 % (24.0-44.0); MONO # 0.9 10^3/uL (0.0-0.8); MONO % 9.2 % (2.0-8.0); NEUTROPHILS # 7.2 10^3/uL (1.5-8.5); NEUTROPHILS % 70.8 % (36.0-66.0); PLATELET COUNT, AUTOMATED 205 10^3/uL (150-450)
[2024-12-03 15:40] LABS: INR 1.14
[2024-12-03 15:49] LABS: CK-MB VALUE MASS 1.3 NG/ML (<3.6)
[2024-12-03 15:53] LABS: ALT/SGPT 18 U/L (7.0-40); AST/SGOT 13 U/L (<34); CALCIUM LEVEL 8.9 MG/DL (8.3-10.6); CARBON DIOXIDE LEVEL 28 MMOL/L (20-31); CHLORIDE LEVEL 102 MMOL/L (98-107); CPK CREATINE PHOSPHOKINASE 29 U/L (34-145); CREATININE FOR GFR 1.43 MG/DL (0.55-1.30); GLOMERULAR FILTRATION RATE 38.7 (>39); MB/CK RELATIVE INDEX 4.48 (< OR =4); POTASSIUM SERUM 4.3 MMOL/L (3.5-5.1); SODIUM LEVEL 141 MMOL/L (136-145)
[2024-12-03 16:18] LABS: ABG BASE EXCESS -2.6 (-2.0-2.0); ABG HCO3 24.9 MMOL/L (22.0-26.0); ABG O2 SATURATION 95.8 % (95.0-99.0); ABG PARTIAL PRESSURE CO2 56.2 mmHg (35.0-45.0); ABG PARTIAL PRESSURE O2 89.8 mmHg (75.0-100.0); ABG STANDARD HCO3 22.3 MMOL/L. (22.0-26.0); ABG TOTAL CO2 26.6 MMOL/L (23.0-31.0); ABG pH (ARTERIAL) 7.264 UNITS (7.350-7.450)
[2024-12-03 17:19] LABS: CK-MB VALUE MASS < 1.0 NG/ML (<3.6)
[2024-12-03 17:24] LABS: CPK CREATINE PHOSPHOKINASE 37 U/L (34-145)
[2024-12-03] MEDS ORDERED: GLUCOSE 4 GM CHEW PO PRN (18:40)
[2024-12-03] MEDS ORDERED: DEXTROSE 50% 50 ML SYRINGE IV PRN (18:40)
[2024-12-03] MEDS ORDERED: GLUCAGON INJ 1 MG VIAL SC PRN (18:40)
[2024-12-03] MEDS ORDERED: ACETAMINOPHEN 325 MG TAB PO PRN (18:40)
[2024-12-03] MEDS ORDERED: MIRALAX *UNIT DOSE* 17 GM PACKET PO PRN (18:40)
[2024-12-03] MEDS: VANCOMYCIN HCL 2,000 MG, VIAL MATE ADAPTER 1 EACH in NS 500 ML IV ONE (19:27)
[2024-12-03] MEDS: FUROSEMIDE 40 MG/4 ML VIAL IV ONE (19:29)
[2024-12-03] MEDS: GLYCOPYRROLATE INJ 0.2 MG/ML 2 ML VIAL NEB SCH (19:52)
[2024-12-03] MEDS: BUDESONIDE 0.5 MG/2 ML INHALATION SUSPENSION NEB SCH (19:54)
[2024-12-03] MEDS: ALBUTEROL SULFATE 2.5 MG/0.5 ML INH CONCENTRATE NEB SOLN NEB SCH (19:54)
[2024-12-03 20:09] LABS: ABG BASE EXCESS -1.6 (-2.0-2.0); ABG HCO3 25.2 MMOL/L (22.0-26.0); ABG O2 SATURATION 98.1 % (95.0-99.0); ABG PARTIAL PRESSURE CO2 52.0 mmHg (35.0-45.0); ABG PARTIAL PRESSURE O2 142.6 mmHg (75.0-100.0); ABG STANDARD HCO3 23.2 MMOL/L. (22.0-26.0); ABG TOTAL CO2 26.8 MMOL/L (23.0-31.0); ABG pH (ARTERIAL) 7.304 UNITS (7.350-7.450)
[2024-12-03] MEDS: PERCOCET 5MG/325MG TAB PO PRN (20:26)
[2024-12-03] MEDS: CEFDINIR 300 MG CAP PO SCH (20:41)
[2024-12-03] MEDS: ATORVASTATIN 20 MG TAB PO SCH (20:41)
[2024-12-03] MEDS: GABAPENTIN 300 MG CAP PO SCH (20:41)
[2024-12-03] MEDS: OLANZapine 5 MG TAB PO SCH (20:41)
[2024-12-03] MEDS: APIXABAN 5 MG TAB PO SCH (20:42)
[2024-12-03] MEDS: DOCUSATE SODIUM 100 MG CAPSULE PO SCH (20:42)
[2024-12-03 21:40] VITALS: BP 155/68; TEMP 97.5; O2SAT 90
[2024-12-03] MEDS: INSULIN LISPRO (NovoLOG) PER UNIT SC SCH (22:36)
[2024-12-03 23:09] VITALS: BP 139/62; TEMP 97.8; O2SAT 92
[2024-12-03] MEDS: LATANOPROST 0.005% OPHTH SOLN 2.5 ML OU SCH (23:37)
[2024-12-04 03:16] VITALS: BP 140/68; TEMP 97.5; O2SAT 95
[2024-12-04 07:04] LABS: BASO # 0.0 10^3/uL (0.0-0.2); BASO % 0.1 % (0.0-1.0); EOS # 0.0 10^3/uL (0.0-0.5); EOS % 0.0 % (0.0-3.0); LYMPH # 0.6 10^3/uL (1.5-5.0); LYMPH % 4.2 % (24.0-44.0); MONO # 0.2 10^3/uL (0.0-0.8); MONO % 1.8 % (2.0-8.0); NEUTROPHILS # 12.4 10^3/uL (1.5-8.5); NEUTROPHILS % 92.5 % (36.0-66.0); PLATELET COUNT, AUTOMATED 194 10^3/uL (150-450)
[2024-12-04 07:25] LABS: CALCIUM LEVEL 8.8 MG/DL (8.3-10.6); CARBON DIOXIDE LEVEL 27.0 MMOL/L (20-31); CHLORIDE LEVEL 104.0 MMOL/L (98-107); CREATININE FOR GFR 1.08 MG/DL (0.55-1.30); GLOMERULAR FILTRATION RATE 54.2 (>39); POTASSIUM SERUM 4.9 MMOL/L (3.5-5.1); SODIUM LEVEL 144.0 MMOL/L (136-145)
[2024-12-04 07:50] VITALS: BP 143/68; TEMP 97.8
[2024-12-04] MEDS ORDERED: FUROSEMIDE 40 MG/4 ML VIAL IV SCH (09:00)
[2024-12-04] MEDS ORDERED: DOXYCYCLINE HYCLATE 100 MG TABLET PO SCH (09:00)
[2024-12-04] MEDS: INSULIN LISPRO (NovoLOG) PER UNIT SC SCH (09:21)
[2024-12-04] MEDS: FERROUS SULFATE 325 MG TAB PO SCH (09:22)
[2024-12-04] MEDS: MAGNESIUM OXIDE 400 MG TAB PO SCH (09:22)
[2024-12-04] MEDS: SENNA 8.6 MG TAB PO SCH (09:22)
[2024-12-04] MEDS: SPIRONOLACTONE 50 MG TAB PO SCH (09:22)
[2024-12-04] MEDS: ASCORBIC ACID 500 MG TAB PO SCH (09:23)
[2024-12-04] MEDS: PANTOPRAZOLE 40MG TAB PO SCH (09:23)
[2024-12-04] MEDS: FUROSEMIDE 40 MG/4 ML VIAL IV SCH (09:23)
[2024-12-04] MEDS: NYSTATIN 100,000 UNITS/GM TOPICAL PWD 15GM TOP SCH (09:24)
[2024-12-04] MEDS: cefTRIAXone SOD 2 GM in DEXTROSE 5% (D5W) ADV/MINI-BAG 50 ML IV SCH (09:25)
[2024-12-04] MEDS: predniSONE 10 MG TAB PO SCH (09:32)
[2024-12-04] MEDS ORDERED: VANCOMYCIN HCL 1,000 MG in IV FLUID PLACE HOLDER 1 EA IV SCH (12:40)
[2024-12-04 13:17] LABS: VANCOMYCIN RANDOM 15.0 UG/ML
[2024-12-04] MEDS: VANCOMYCIN HCL 1,000 MG, VIAL MATE ADAPTER 1 EACH in NS 250 ML IV SCH (14:06)
[2024-12-04 16:19] VITALS: BP 133/68; TEMP 97.1; O2SAT 94
[2024-12-04 17:45] VITALS: TEMP 99
[2024-12-04 20:13] VITALS: BP 148/64; TEMP 97; O2SAT 95
[2024-12-05] VITALS (8 sets, daily range): BP systolic 110–166; BP diastolic 64–77; TEMP 97–97.6; O2SAT 94–99
[2024-12-05 10:00] LABS: BASO # 0.0 10^3/uL (0.0-0.2); BASO % 0.3 % (0.0-1.0); EOS # 0.1 10^3/uL (0.0-0.5); EOS % 0.3 % (0.0-3.0); LYMPH # 1.8 10^3/uL (1.5-5.0); LYMPH % 12.8 % (24.0-44.0); MONO # 0.7 10^3/uL (0.0-0.8); MONO % 5.0 % (2.0-8.0); NEUTROPHILS # 11.7 10^3/uL (1.5-8.5); NEUTROPHILS % 80.8 % (36.0-66.0); PLATELET COUNT, AUTOMATED 263 10^3/uL (150-450)
[2024-12-05 10:42] LABS: CALCIUM LEVEL 9.2 MG/DL (8.3-10.6); CARBON DIOXIDE LEVEL 35.0 MMOL/L (20-31); CHLORIDE LEVEL 101.0 MMOL/L (98-107); CREATININE FOR GFR 0.85 MG/DL (0.55-1.30); GLOMERULAR FILTRATION RATE 72.3 (>39); POTASSIUM SERUM 3.7 MMOL/L (3.5-5.1); SODIUM LEVEL 146.0 MMOL/L (136-145)
[2024-12-05] MEDS: VANCOMYCIN HCL 1,250 MG, VIAL MATE ADAPTER 1 EACH in NS 250 ML IV SCH (13:10)
[2024-12-05] MEDS: FUROSEMIDE 20 MG/2 ML VIAL IV SCH (15:31)
[2024-12-05] MEDS: PERCOCET 5MG/325MG TAB PO ONE (15:33)
[2024-12-06 03:54] VITALS: BP 134/76; TEMP 97.5; O2SAT 97
[2024-12-06 06:24] LABS: BASO # 0.0 10^3/uL (0.0-0.2); BASO % 0.3 % (0.0-1.0); EOS # 0.1 10^3/uL (0.0-0.5); EOS % 0.6 % (0.0-3.0); LYMPH # 2.2 10^3/uL (1.5-5.0); LYMPH % 15.1 % (24.0-44.0); MONO # 1.2 10^3/uL (0.0-0.8); MONO % 8.3 % (2.0-8.0); NEUTROPHILS # 11.0 10^3/uL (1.5-8.5); NEUTROPHILS % 74.2 % (36.0-66.0); PLATELET COUNT, AUTOMATED 260 10^3/uL (150-450)
[2024-12-06 06:44] LABS: CALCIUM LEVEL 9.0 MG/DL (8.3-10.6); CARBON DIOXIDE LEVEL 35.0 MMOL/L (20-31); CHLORIDE LEVEL 99.0 MMOL/L (98-107); CREATININE FOR GFR 0.85 MG/DL (0.55-1.30); GLOMERULAR FILTRATION RATE 72.3 (>39); POTASSIUM SERUM 3.9 MMOL/L (3.5-5.1); SODIUM LEVEL 144.0 MMOL/L (136-145)
[2024-12-06 09:35] LABS: C REACTIVE PROTEIN QUANTITATIV 1.4 MG/DL (<1.0)
[2024-12-06 09:57] LABS: ERYTHROCYTE SEDIMENTATION RATE 50 mm/hr (0-30)
[2024-12-06] MEDS: CEFDINIR 300 MG CAP PO SCH (10:14)
[2024-12-06 12:00] VITALS: BP 144/79; TEMP 97; O2SAT 94
[2024-12-06 20:29] VITALS: BP 150/77; TEMP 96.8; O2SAT 94
[2024-12-07 02:36] VITALS: BP 124/66; TEMP 97; O2SAT 95
[2024-12-07 06:34] LABS: BASO # 0.1 10^3/uL (0.0-0.2); BASO % 0.3 % (0.0-1.0); EOS # 0.3 10^3/uL (0.0-0.5); EOS % 1.9 % (0.0-3.0); LYMPH # 2.7 10^3/uL (1.5-5.0); LYMPH % 18.0 % (24.0-44.0); MONO # 1.3 10^3/uL (0.0-0.8); MONO % 8.3 % (2.0-8.0); NEUTROPHILS # 10.5 10^3/uL (1.5-8.5); NEUTROPHILS % 69.7 % (36.0-66.0); PLATELET COUNT, AUTOMATED 272 10^3/uL (150-450)
[2024-12-07 07:15] LABS: CALCIUM LEVEL 9.4 MG/DL (8.3-10.6); CARBON DIOXIDE LEVEL 32.0 MMOL/L (20-31); CHLORIDE LEVEL 99.0 MMOL/L (98-107); CREATININE FOR GFR 0.91 MG/DL (0.55-1.30); GLOMERULAR FILTRATION RATE 66.6 (>39); POTASSIUM SERUM 3.6 MMOL/L (3.5-5.1); SODIUM LEVEL 143.0 MMOL/L (136-145)
[2024-12-07 08:27] VITALS: BP 130/73; TEMP 97; O2SAT 91
[2024-12-07 12:05] VITALS: BP 124/66; TEMP 97; O2SAT 95
[2024-12-07] MEDS ORDERED: CEFD300CAP PO (12:13)
[2024-12-07 12:33] LABS: MAGNESIUM LEVEL 2.0 MG/DL (1.8-2.4)
[2024-12-07 12:36] VITALS: BP 145/83
[2024-12-07] MEDS: TORSEMIDE 20 MG TAB PO ONE (12:36)
[2024-12-07] MEDS: POTASSIUM CHLORIDE 10MEQ SR TABLET PO ONE (12:36)
[2024-12-07] MEDS: MAG SULF 1GM/100ML (MAG RUN) 1 GM in IV 1 EA IV ONE (13:48)
[2024-12-07 15:18] VITALS: O2SAT 99
[2024-12-11] MEDS ORDERED: CEFDINIR 300 MG CAP PO SCH (09:00)
== END 2024-12-07 16:36 | disposition home health service (06) | DRG 291 ==
LOC: M ED 14:10 → EDBD 14:10 → M ED INP 18:40 → M PCU 21:43 → M MSPAV 12-05 20:44
PROVIDERS: ADMIT Internal Medicine Nephrology; ATTEND General Practice
DX: I13.0 Hypertensive heart and chronic kidney disease with heart failure and stage 1 through stage 4 chronic kidney disease, or unspecified chronic kidney disease (principal); I50.33 Acute on chronic diastolic (congestive) heart failure; J96.21 Acute and chronic respiratory failure with hypoxia; J96.22 Acute and chronic respiratory failure with hypercapnia; R53.2 Functional quadriplegia; E66.2 Morbid (severe) obesity with alveolar hypoventilation; J84.9 Interstitial pulmonary disease, unspecified; J96.11 Chronic respiratory failure with hypoxia; M46.25 Osteomyelitis of vertebra, thoracolumbar region; J44.1 Chronic obstructive pulmonary disease with (acute) exacerbation; L03.115 Cellulitis of right lower limb; Z68.42 Body mass index [BMI] 45.0-49.9, adult; F11.20 Opioid dependence, uncomplicated; E87.0 Hyperosmolality and hypernatremia; I50.812 Chronic right heart failure; E11.22 Type 2 diabetes mellitus with diabetic chronic kidney disease; N18.30 Chronic kidney disease, stage 3 unspecified; E11.69 Type 2 diabetes mellitus with other specified complication; E11.40 Type 2 diabetes mellitus with diabetic neuropathy, unspecified; F31.9 Bipolar disorder, unspecified; D50.9 Iron deficiency anemia, unspecified; E78.5 Hyperlipidemia, unspecified; H40.9 Unspecified glaucoma; K21.9 Gastro-esophageal reflux disease without esophagitis; G89.29 Other chronic pain; M54.50 Low back pain, unspecified; L89.322 Pressure ulcer of left buttock, stage 2; R32 Unspecified urinary incontinence; L84 Corns and callosities; G25.81 Restless legs syndrome; Z74.01 Bed confinement status; Z99.81 Dependence on supplemental oxygen; Z98.1 Arthrodesis status; Z79.01 Long term (current) use of anticoagulants; Z79.84 Long term (current) use of oral hypoglycemic drugs; Z79.899 Other long term (current) drug therapy; Z88.8 Allergy status to other drugs, medicaments and biological substances; Z86.711 Personal history of pulmonary embolism; Z99.3 Dependence on wheelchair; Z87.891 Personal history of nicotine dependence; Z90.2 Acquired absence of lung [part of]

== ENCOUNTER 2024-12-15 12:05 | Inpatient (IN) | payer MEDICARE, BC ==
[~2024-12-15] VITALS: Ht 154.9 cm; Wt 120.0 kg
[2024-12-15] MEDS: IPRATROPIUM 0.5 MG/ALBUTEROL 2.5 MG INH SOL UD 3 ML NEB ONE (13:42)
[2024-12-15] MEDS: ALBUTEROL SULFATE 2.5 MG/0.5 ML INH CONCENTRATE NEB SOLN INH ONE (13:42)
[2024-12-15 14:01] LABS: VENOUS BASE EXCESS 0.9 (-2.0-2.0); VENOUS HCO3 29.1 MMOL/L (23.0-27.0); VENOUS O2 SATURATION 63.2 % (60.0-80.0); VENOUS PARTIAL PRESSURE CO2 65.2 mmHg (38.0-50.0); VENOUS PARTIAL PRESSURE O2 34.7 mmHg (30.0-50.0); VENOUS PH 7.267 UNITS (7.330-7.430); VENOUS STANDARD HCO3 24.6 MMOL/L; VENOUS TOTAL CO2 31.1 MMOL/L (24.0-28.0)
[2024-12-15 14:06] LABS: BASO # 0.1 10^3/uL (0.0-0.2); BASO % 0.3 % (0.0-1.0); EOS # 0.5 10^3/uL (0.0-0.5); EOS % 3.0 % (0.0-3.0); LYMPH # 1.7 10^3/uL (1.5-5.0); LYMPH % 11.4 % (24.0-44.0); MONO # 1.2 10^3/uL (0.0-0.8); MONO % 7.7 % (2.0-8.0); NEUTROPHILS # 11.1 10^3/uL (1.5-8.5); NEUTROPHILS % 74.1 % (36.0-66.0); PLATELET COUNT, AUTOMATED 256 10^3/uL (150-450)
[2024-12-15 14:17] LABS: INR 1.35
[2024-12-15 14:33] LABS: CK-MB VALUE MASS 1.8 NG/ML (<3.6)
[2024-12-15 14:36] LABS: ALT/SGPT 18 U/L (7.0-40); AST/SGOT 16 U/L (<34); CALCIUM LEVEL 8.7 MG/DL (8.3-10.6); CARBON DIOXIDE LEVEL 29 MMOL/L (20-31); CHLORIDE LEVEL 102 MMOL/L (98-107); CREATININE FOR GFR 1.54 MG/DL (0.55-1.30); GLOMERULAR FILTRATION RATE 35.4 (>39); POTASSIUM SERUM 4.4 MMOL/L (3.5-5.1); SODIUM LEVEL 144 MMOL/L (136-145)
[2024-12-15 14:38] LABS: THYROXINE (T4) 7.9 UG/DL (4.5-10.9)
[2024-12-15 14:52] LABS: CPK CREATINE PHOSPHOKINASE 109 U/L (34-145); MB/CK RELATIVE INDEX 1.65 (< OR =4)
[2024-12-15 14:55] LABS: KETONE, URINE AUTO RFX NEGATIVE (NEGATIVE); LEUKOCYTE ESTERASE UR AUTO RFX 2+ (NEGATIVE); NITRITE, URINE AUTO RFX NEGATIVE (NEGATIVE); RBC, URINE AUTO RFX 1 /HPF (0-3); SQUAM EPITHELIAL CELL UR AURFX 0 /HPF (0-6); WBC, URINE AUTO RFX 40 /HPF (0-3)
[2024-12-15 15:17] LABS: ABG BASE EXCESS -0.7 (-2.0-2.0); ABG HCO3 26.2 MMOL/L (22.0-26.0); ABG O2 SATURATION 96.0 % (95.0-99.0); ABG PARTIAL PRESSURE CO2 54.0 mmHg (35.0-45.0); ABG PARTIAL PRESSURE O2 93.5 mmHg (75.0-100.0); ABG STANDARD HCO3 23.9 MMOL/L. (22.0-26.0); ABG TOTAL CO2 27.9 MMOL/L (23.0-31.0); ABG pH (ARTERIAL) 7.304 UNITS (7.350-7.450)
[2024-12-15 16:20] LABS: CK-MB VALUE MASS 1.7 NG/ML (<3.6); CPK CREATINE PHOSPHOKINASE 117.0 U/L (34-145); MB/CK RELATIVE INDEX 1.45 (< OR =4)
[2024-12-15] MEDS: NS 500 ML IV ONE (16:32)
[2024-12-15] MEDS ORDERED: HOME MED LIST COMPLETE! XX SCH (18:10)
[2024-12-15] MEDS: ERTAPENEM SODIUM 1 GM in NS MINI-BAG PLUS 50 ML IV SCH (18:11)
[2024-12-15 18:30] VITALS: BP 113/61; TEMP 97.7; O2SAT 82
[2024-12-15 20:00] VITALS: BP 112/61; TEMP 97.7; O2SAT 95
[2024-12-15] MEDS: IPRATROPIUM 0.5 MG/ALBUTEROL 2.5 MG INH SOL UD 3 ML NEB SCH (20:16)
[2024-12-15] MEDS: CEFDINIR 300 MG CAP PO SCH (21:17)
[2024-12-15] MEDS: ASCORBIC ACID 500 MG TAB PO SCH (21:17)
[2024-12-15] MEDS: OLANZapine 5 MG TAB PO SCH (21:17)
[2024-12-15] MEDS: DOCUSATE SODIUM 100 MG CAPSULE PO SCH (21:17)
[2024-12-15] MEDS: ATORVASTATIN 20 MG TAB PO SCH (21:17)
[2024-12-15] MEDS: SENNA 8.6 MG TAB PO SCH (21:18)
[2024-12-15] MEDS: APIXABAN 5 MG TAB PO SCH (21:18)
[2024-12-15] MEDS ORDERED: NALOXONE INJ 0.4 MG/1 ML VIAL IV PRN (22:55)
[2024-12-16] MEDS: ACETAMINOPHEN 325 MG TAB PO SCH (00:26)
[2024-12-16 04:00] VITALS: BP 151/69; TEMP 96.8; O2SAT 91
[2024-12-16 06:19] LABS: PLATELET COUNT, AUTOMATED 272 10^3/uL (150-450)
[2024-12-16 06:51] LABS: CALCIUM LEVEL 9.3 MG/DL (8.3-10.6); CARBON DIOXIDE LEVEL 28.0 MMOL/L (20-31); CHLORIDE LEVEL 106.0 MMOL/L (98-107); CREATININE FOR GFR 0.99 MG/DL (0.55-1.30); GLOMERULAR FILTRATION RATE 60.2 (>39); POTASSIUM SERUM 4.8 MMOL/L (3.5-5.1); SODIUM LEVEL 147.0 MMOL/L (136-145)
[2024-12-16] MEDS ORDERED: GLUCOSE 4 GM CHEW PO PRN (07:20)
[2024-12-16] MEDS ORDERED: GLUCAGON INJ 1 MG VIAL SC PRN (07:20)
[2024-12-16] MEDS ORDERED: DEXTROSE 50% 50 ML SYRINGE IV PRN (07:20)
[2024-12-16] MEDS: INSULIN LISPRO (NovoLOG) PER UNIT SC SCH ×2 (07:30→21:00)
[2024-12-16] MEDS: SYMBICORT 80/4.5MCG INHALER 6GM INH SCH (07:32)
[2024-12-16] MEDS: TIOTROPIUM BROM 2.5MCG/ACTUATION 4GM INH INH SCH (07:33)
[2024-12-16 07:35] VITALS: O2SAT 96
[2024-12-16] MEDS: D5W 500 ML IV SCH (08:00)
[2024-12-16] MEDS: LanTUS (INSULIN GLARGINE INJ) 1 UNITS/0.01 ML SC SCH ×2 (08:24→21:40)
[2024-12-16] MEDS: FERROUS SULFATE 325 MG TAB PO SCH (08:25)
[2024-12-16] MEDS: PANTOPRAZOLE 40MG TAB PO SCH (08:25)
[2024-12-16] MEDS: MAGNESIUM OXIDE 400 MG TAB PO SCH (08:26)
[2024-12-16] MEDS: predniSONE 20 MG TAB PO SCH (08:26)
[2024-12-16 09:59] LABS: VENOUS BASE EXCESS -2.3 (-2.0-2.0); VENOUS HCO3 23.4 MMOL/L (23.0-27.0); VENOUS O2 SATURATION 98.5 % (60.0-80.0); VENOUS PARTIAL PRESSURE CO2 44.1 mmHg (38.0-50.0); VENOUS PARTIAL PRESSURE O2 192.4 mmHg (30.0-50.0); VENOUS PH 7.343 UNITS (7.330-7.430); VENOUS STANDARD HCO3 22.6 MMOL/L; VENOUS TOTAL CO2 24.8 MMOL/L (24.0-28.0)
[2024-12-16 12:00] VITALS: BP 132/64; TEMP 97.6; O2SAT 96
[2024-12-16 19:12] VITALS: O2SAT 97
[2024-12-16 19:48] VITALS: BP 112/68; TEMP 97.5; O2SAT 97
[2024-12-17 03:55] VITALS: BP 130/58; TEMP 97.7; O2SAT 94
[2024-12-17 06:51] LABS: BASO # 0.1 10^3/uL (0.0-0.2); BASO % 0.3 % (0.0-1.0); EOS # 0.1 10^3/uL (0.0-0.5); EOS % 0.4 % (0.0-3.0); LYMPH # 2.0 10^3/uL (1.5-5.0); LYMPH % 10.7 % (24.0-44.0); MONO # 1.3 10^3/uL (0.0-0.8); MONO % 6.6 % (2.0-8.0); NEUTROPHILS # 15.2 10^3/uL (1.5-8.5); NEUTROPHILS % 79.7 % (36.0-66.0); PLATELET COUNT, AUTOMATED 307 10^3/uL (150-450)
[2024-12-17 07:15] LABS: CALCIUM LEVEL 9.1 MG/DL (8.3-10.6); CARBON DIOXIDE LEVEL 29.0 MMOL/L (20-31); CHLORIDE LEVEL 103.0 MMOL/L (98-107); CREATININE FOR GFR 0.85 MG/DL (0.55-1.30); GLOMERULAR FILTRATION RATE 72.3 (>39); POTASSIUM SERUM 4.4 MMOL/L (3.5-5.1); SODIUM LEVEL 143.0 MMOL/L (136-145)
[2024-12-17 07:47] VITALS: O2SAT 98
[2024-12-17 12:00] VITALS: BP 144/76; TEMP 97.7; O2SAT 97
[2024-12-17] MEDS: SPIRONOLACTONE 50 MG TAB PO SCH (18:00)
[2024-12-17] MEDS: TORSEMIDE 20 MG TAB PO SCH (18:00)
[2024-12-17 19:11] VITALS: O2SAT 96
[2024-12-17 20:53] VITALS: BP 139/72; TEMP 97.5; O2SAT 96
[2024-12-17] MEDS ORDERED: PRED20TA PO (22:41)
[2024-12-18 04:46] VITALS: BP 149/75; TEMP 97.2; O2SAT 92
[2024-12-18 06:31] LABS: PLATELET COUNT, AUTOMATED 320 10^3/uL (150-450)
[2024-12-18 06:59] LABS: ALT/SGPT 12 U/L (7.0-40); AST/SGOT < 8 U/L (<34); CALCIUM LEVEL 9.1 MG/DL (8.3-10.6); CARBON DIOXIDE LEVEL 31 MMOL/L (20-31); CHLORIDE LEVEL 101 MMOL/L (98-107); CREATININE FOR GFR 1.04 MG/DL (0.55-1.30); GLOMERULAR FILTRATION RATE 56.8 (>39); POTASSIUM SERUM 4.0 MMOL/L (3.5-5.1); SODIUM LEVEL 144 MMOL/L (136-145)
[2024-12-18 08:21] VITALS: O2SAT 95
[2024-12-18 09:02] VITALS: BP 151/70; O2SAT 98
[2024-12-18 09:06] VITALS: BP 151/70
[2024-12-18 11:41] VITALS: BP 157/78; TEMP 97.2; O2SAT 96
[2024-12-18 12:56] VITALS: O2SAT 94
== END 2024-12-18 13:48 | disposition home health service (06) | DRG 690 ==
LOC: EDBD 12:05 → M ED 12:05 → M ED INP 12:06 → M MS5PR 18:20 → EEVIPCON 12-17 11:40 → OBSVTOIN 12-17 11:40
PROVIDERS: ADMIT Internal Medicine; ATTEND Internal Medicine
DX: N39.0 Urinary tract infection, site not specified (principal); E66.2 Morbid (severe) obesity with alveolar hypoventilation; J96.11 Chronic respiratory failure with hypoxia; I50.32 Chronic diastolic (congestive) heart failure; N17.9 Acute kidney failure, unspecified; J96.12 Chronic respiratory failure with hypercapnia; M46.25 Osteomyelitis of vertebra, thoracolumbar region; E87.0 Hyperosmolality and hypernatremia; J44.1 Chronic obstructive pulmonary disease with (acute) exacerbation; I13.0 Hypertensive heart and chronic kidney disease with heart failure and stage 1 through stage 4 chronic kidney disease, or unspecified chronic kidney disease; N18.30 Chronic kidney disease, stage 3 unspecified; G89.29 Other chronic pain; L89.302 Pressure ulcer of unspecified buttock, stage 2; E11.22 Type 2 diabetes mellitus with diabetic chronic kidney disease; E11.42 Type 2 diabetes mellitus with diabetic polyneuropathy; K21.9 Gastro-esophageal reflux disease without esophagitis; D50.9 Iron deficiency anemia, unspecified; E78.5 Hyperlipidemia, unspecified; E11.51 Type 2 diabetes mellitus with diabetic peripheral angiopathy without gangrene; I27.20 Pulmonary hypertension, unspecified; E11.69 Type 2 diabetes mellitus with other specified complication; B96.1 Klebsiella pneumoniae [K. pneumoniae] as the cause of diseases classified elsewhere; I73.9 Peripheral vascular disease, unspecified; M81.0 Age-related osteoporosis without current pathological fracture; F41.9 Anxiety disorder, unspecified; I89.0 Lymphedema, not elsewhere classified; F32.A Depression, unspecified; Z79.01 Long term (current) use of anticoagulants; Z79.51 Long term (current) use of inhaled steroids; Z79.84 Long term (current) use of oral hypoglycemic drugs; Z79.899 Other long term (current) drug therapy; Z88.8 Allergy status to other drugs, medicaments and biological substances; Z99.81 Dependence on supplemental oxygen; Z90.2 Acquired absence of lung [part of]; Z85.118 Personal history of other malignant neoplasm of bronchus and lung; Z90.49 Acquired absence of other specified parts of digestive tract; Z87.891 Personal history of nicotine dependence; Z86.711 Personal history of pulmonary embolism; M19.90 Unspecified osteoarthritis, unspecified site; Z79.891 Long term (current) use of opiate analgesic; Z79.2 Long term (current) use of antibiotics

== ENCOUNTER 2024-12-26 17:00 | Emergency (ER) | payer MEDICARE, BC ==
[~2024-12-26 17:00] MED LIST changes: +SENN-225 PO; -SENO8.6T5 PO
[2024-12-26 19:56] VITALS: BP 132/68; TEMP 98.2; O2SAT 98
== END 2024-12-26 19:59 | disposition home or self-care (01) ==
LOC: M ED 17:00 → EDBD 17:00 → M ED 19:59
DX: S70.01XA Contusion of right hip, initial encounter (principal); W17.89XA Other fall from one level to another, initial encounter; Y92.009 Unspecified place in unspecified non-institutional (private) residence as the place of occurrence of the external cause; Y93.89 Activity, other specified; Y99.9 Unspecified external cause status; I25.10 Atherosclerotic heart disease of native coronary artery without angina pectoris; E66.01 Morbid (severe) obesity due to excess calories; G47.33 Obstructive sleep apnea (adult) (pediatric); Z85.118 Personal history of other malignant neoplasm of bronchus and lung; Z79.84 Long term (current) use of oral hypoglycemic drugs; Z79.01 Long term (current) use of anticoagulants; Z79.899 Other long term (current) drug therapy; Z88.8 Allergy status to other drugs, medicaments and biological substances

== ENCOUNTER → 2025-01-30 | Outpatient (CLI) | payer MEDICARE, BC ==
[~2025-01-30] MED LIST changes: +METH-1100 PO; -METH-855 PO; +OLAN1TAB20 PO; +OXYC10TA12 PO
[2025-01-30 15:18] LABS: BASO # 0.0 10^3/uL (0.0-0.2); BASO % 0.3 % (0.0-1.0); EOS # 0.5 10^3/uL (0.0-0.5); EOS % 3.6 % (0.0-3.0); LYMPH # 1.3 10^3/uL (1.5-5.0); LYMPH % 9.3 % (24.0-44.0); MONO # 1.0 10^3/uL (0.0-0.8); MONO % 7.2 % (2.0-8.0); NEUTROPHILS # 11.0 10^3/uL (1.5-8.5); NEUTROPHILS % 78.3 % (36.0-66.0); PLATELET COUNT, AUTOMATED 248 10^3/uL (150-450)
[2025-01-30 15:51] LABS: IRON (FE) 54.0 UG/DL (50-170)
[2025-01-30 15:52] LABS: ALT/SGPT 13.0 U/L (7.0-40); AST/SGOT 14.0 U/L (<34); CALCIUM LEVEL 9.2 MG/DL (8.3-10.6); CARBON DIOXIDE LEVEL 28.0 MMOL/L (20-31); CHLORIDE LEVEL 104.0 MMOL/L (98-107); CHOLESTEROL LEVEL 126.0 MG/DL (<200); CHOLESTEROL RISK RATIO 2.36 (<5); CREATININE FOR GFR 1.02 MG/DL (0.55-1.30); GLOMERULAR FILTRATION RATE 58.1 (>39); LDL CHOLESTEROL 34.6 MG/DL (<100); MAGNESIUM LEVEL 1.5 MG/DL (1.8-2.4); NON-HDL-C 72.8 MG/DL; POTASSIUM SERUM 4.0 MMOL/L (3.5-5.1); SODIUM LEVEL 146.0 MMOL/L (136-145); TRIGLYCERIDES LEVEL 191.0 MG/DL (<150)
[2025-01-30 16:53] LABS: ESTIMATED AVERAGE GLUCOSE 108.0 MG/DL (60-110)
== END ==
LOC: M LAB 14:20
PROVIDERS: ATTEND Student in an Organized Health Care Education/Training Program
DX: Z00.00 Encounter for general adult medical examination without abnormal findings (principal); E83.42 Hypomagnesemia; E87.6 Hypokalemia; E11.9 Type 2 diabetes mellitus without complications; D64.9 Anemia, unspecified; E78.5 Hyperlipidemia, unspecified; Z51.5 Encounter for palliative care; J96.10 Chronic respiratory failure, unspecified whether with hypoxia or hypercapnia; Z99.81 Dependence on supplemental oxygen; I50.20 Unspecified systolic (congestive) heart failure; G47.33 Obstructive sleep apnea (adult) (pediatric); N18.30 Chronic kidney disease, stage 3 unspecified; G43.709 Chronic migraine without aura, not intractable, without status migrainosus; Z92.89 Personal history of other medical treatment; Z79.891 Long term (current) use of opiate analgesic; Z88.6 Allergy status to analgesic agent; Z79.899 Other long term (current) drug therapy; Z79.84 Long term (current) use of oral hypoglycemic drugs; Z79.02 Long term (current) use of antithrombotics/antiplatelets; Z79.83 Long term (current) use of bisphosphonates
CPT/HCPCS: 36415; 80053; 80061; 82728; 83036; 83540; 83735; 85025; G0463

== ENCOUNTER → 2025-01-30 | Outpatient (CLI) | payer MEDICARE, BC ==
[~2025-01-30] VITALS: Ht 170.2 cm; Wt 121.1 kg
[~2025-01-30] MED LIST changes: -METH-1100 PO; +METH-855 PO
[2025-01-30 15:56] VITALS: BP 166/84; O2SAT 97
== END ==
LOC: M PAL 14:55
PROVIDERS: ATTEND Physician Assistant
DX: Z51.5 Encounter for palliative care (principal); J96.10 Chronic respiratory failure, unspecified whether with hypoxia or hypercapnia; Z99.81 Dependence on supplemental oxygen; I50.20 Unspecified systolic (congestive) heart failure; G47.33 Obstructive sleep apnea (adult) (pediatric); N18.30 Chronic kidney disease, stage 3 unspecified; Z92.89 Personal history of other medical treatment; Z79.891 Long term (current) use of opiate analgesic; Z88.6 Allergy status to analgesic agent; Z79.899 Other long term (current) drug therapy; Z79.84 Long term (current) use of oral hypoglycemic drugs; Z79.02 Long term (current) use of antithrombotics/antiplatelets; Z79.83 Long term (current) use of bisphosphonates

== ENCOUNTER → 2025-03-12 | Outpatient (CLI) | payer MEDICARE, BC ==
[~2025-03-12] VITALS: Ht 154.9 cm; Wt 120.2 kg
[~2025-03-12] MED LIST changes: +METH-1100 PO; -METH-855 PO
[2025-03-12 13:21] VITALS: BP 158/82; O2SAT 96
== END ==
LOC: M PAL 13:10
PROVIDERS: ATTEND Physician Assistant
DX: Z51.5 Encounter for palliative care (principal); J96.10 Chronic respiratory failure, unspecified whether with hypoxia or hypercapnia; I50.20 Unspecified systolic (congestive) heart failure; G47.33 Obstructive sleep apnea (adult) (pediatric); N18.30 Chronic kidney disease, stage 3 unspecified; R52 Pain, unspecified; R11.0 Nausea; Z99.81 Dependence on supplemental oxygen; Z79.01 Long term (current) use of anticoagulants; Z79.51 Long term (current) use of inhaled steroids; Z79.84 Long term (current) use of oral hypoglycemic drugs; Z79.891 Long term (current) use of opiate analgesic; Z79.899 Other long term (current) drug therapy; Z88.8 Allergy status to other drugs, medicaments and biological substances

== ENCOUNTER 2025-03-16 13:08 | Inpatient (IN) | payer MEDICARE, BC ==
[~2025-03-16] VITALS: Ht 157.5 cm; Wt 109.4 kg
[2025-03-16 13:45] LABS: VENOUS BASE EXCESS 3.3 (-2.0-2.0); VENOUS HCO3 31.3 MMOL/L (23.0-27.0); VENOUS O2 SATURATION 51.0 % (60.0-80.0); VENOUS PARTIAL PRESSURE CO2 66.0 mmHg (38.0-50.0); VENOUS PARTIAL PRESSURE O2 29.5 mmHg (30.0-50.0); VENOUS PH 7.294 UNITS (7.330-7.430); VENOUS STANDARD HCO3 26.5 MMOL/L; VENOUS TOTAL CO2 33.3 MMOL/L (24.0-28.0)
[2025-03-16 13:51] LABS: BASO # 0.1 10^3/uL (0.0-0.2); BASO % 0.4 % (0.0-1.0); EOS # 0.5 10^3/uL (0.0-0.5); EOS % 4.6 % (0.0-3.0); LYMPH # 1.3 10^3/uL (1.5-5.0); LYMPH % 11.0 % (24.0-44.0); MONO # 0.8 10^3/uL (0.0-0.8); MONO % 6.9 % (2.0-8.0); NEUTROPHILS # 8.8 10^3/uL (1.5-8.5); NEUTROPHILS % 76.5 % (36.0-66.0); PLATELET COUNT, AUTOMATED 253 10^3/uL (150-450)
[2025-03-16 14:02] LABS: INR 1.17
[2025-03-16 14:20] LABS: ALT/SGPT < 9 U/L (7.0-40); AST/SGOT 11 U/L (<34); CALCIUM LEVEL 9.5 MG/DL (8.3-10.6); CARBON DIOXIDE LEVEL 33 MMOL/L (20-31); CHLORIDE LEVEL 100 MMOL/L (98-107); CREATININE FOR GFR 1.16 MG/DL (0.55-1.30); GLOMERULAR FILTRATION RATE 49.8 (>39); POTASSIUM SERUM 4.2 MMOL/L (3.5-5.1); SODIUM LEVEL 143 MMOL/L (136-145)
[2025-03-16] MEDS: IPRATROPIUM 0.5 MG/ALBUTEROL 2.5 MG INH SOL UD 3 ML NEB SCH ×2 (14:42→19:49)
[2025-03-16 14:59] LABS: ABG BASE EXCESS 5.1 (-2.0-2.0); ABG HCO3 31.7 MMOL/L (22.0-26.0); ABG O2 SATURATION 97.7 % (95.0-99.0); ABG PARTIAL PRESSURE CO2 57.2 mmHg (35.0-45.0); ABG PARTIAL PRESSURE O2 114.9 mmHg (75.0-100.0); ABG STANDARD HCO3 29.0 MMOL/L. (22.0-26.0); ABG TOTAL CO2 33.5 MMOL/L (23.0-31.0); ABG pH (ARTERIAL) 7.362 UNITS (7.350-7.450)
[2025-03-16] MEDS ORDERED: ALBUTEROL SULFATE 2.5 MG/0.5 ML INH CONCENTRATE NEB SOLN NEB PRN (15:50)
[2025-03-16] MEDS ORDERED: ZINCLOZ9 PO (18:22)
[2025-03-16] MEDS ORDERED: D-50CAP PO (18:22)
[2025-03-16] MEDS ORDERED: THERTAB52 PO (18:22)
[2025-03-16] MEDS ORDERED: MUCI600T31 PO (18:22)
[2025-03-16] MEDS ORDERED: OXYC10TA12 PO (18:22)
[2025-03-16] MEDS ORDERED: HOME MED LIST COMPLETE! XX SCH (18:25)
[2025-03-16] MEDS: TORSEMIDE 20 MG TAB PO SCH (18:57)
[2025-03-16] MEDS ORDERED: SENNA 8.6 MG TAB PO PRN (19:30)
[2025-03-16] MEDS ORDERED: SILVER SULFADIAZINE 1% CR 50 GM JAR TOP PRN (19:30)
[2025-03-16] MEDS ORDERED: guaiFENesin ER TABLET 600 MG TAB PO PRN (19:30)
[2025-03-16] MEDS ORDERED: ONDANSETRON 4MG TAB PO PRN (19:30)
[2025-03-16] MEDS ORDERED: MIRALAX *UNIT DOSE* 17 GM PACKET PO PRN (19:30)
[2025-03-16] MEDS: SYMBICORT 160/4.5MCG INHALER 6GM INH SCH (19:49)
[2025-03-17] MEDS: APIXABAN 5 MG TAB PO SCH (00:15)
[2025-03-17] MEDS: MAGNESIUM OXIDE 400 MG TAB PO SCH (00:15)
[2025-03-17] MEDS: CEFDINIR 300 MG CAP PO SCH (00:15)
[2025-03-17] MEDS: METHENAMINE HIPPURATE 1 GM TABLET PO SCH (00:15)
[2025-03-17] MEDS: ACETAMINOPHEN 500 MG TAB PO SCH (00:16)
[2025-03-17] MEDS: LATANOPROST 0.005% OPHTH SOLN 2.5 ML OU SCH (00:16)
[2025-03-17 06:29] LABS: PLATELET COUNT, AUTOMATED 286 10^3/uL (150-450)
[2025-03-17 07:02] LABS: CALCIUM LEVEL 9.6 MG/DL (8.3-10.6); CARBON DIOXIDE LEVEL 30.0 MMOL/L (20-31); CHLORIDE LEVEL 100.0 MMOL/L (98-107); CREATININE FOR GFR 0.81 MG/DL (0.55-1.30); GLOMERULAR FILTRATION RATE 76.6 (>39); POTASSIUM SERUM 4.2 MMOL/L (3.5-5.1); SODIUM LEVEL 144.0 MMOL/L (136-145)
[2025-03-17] MEDS: TIOTROPIUM BROM 2.5MCG/ACTUATION 4GM INH INH SCH (07:56)
[2025-03-17] MEDS: FERROUS SULFATE 325 MG TAB PO SCH (08:23)
[2025-03-17] MEDS: PANTOPRAZOLE 40MG TAB PO SCH (08:24)
[2025-03-17] MEDS: SPIRONOLACTONE 50 MG TAB PO SCH (08:24)
[2025-03-17] MEDS: ATORVASTATIN 20 MG TAB PO SCH (08:24)
[2025-03-17] MEDS: LIDOCAINE 2% 5 ML JELLY UROJET TOP ONE (08:50)
[2025-03-17 09:27] LABS: ABG BASE EXCESS 2.1 (-2.0-2.0); ABG HCO3 27.1 MMOL/L (22.0-26.0); ABG O2 SATURATION 97.7 % (95.0-99.0); ABG PARTIAL PRESSURE CO2 43.7 mmHg (35.0-45.0); ABG PARTIAL PRESSURE O2 108.0 mmHg (75.0-100.0); ABG STANDARD HCO3 26.4 MMOL/L. (22.0-26.0); ABG TOTAL CO2 28.4 MMOL/L (23.0-31.0); ABG pH (ARTERIAL) 7.410 UNITS (7.350-7.450)
[2025-03-17 09:38] LABS: APPEARANCE, URINE CLEAR (CLEAR); BACTERIA, URINE AUTO NEGATIVE (NEGATIVE); BILIRUBIN, URINE AUTO NEGATIVE (NEGATIVE); BLOOD, URINE BLOOD NEGATIVE (NEGATIVE); GLUCOSE, URINE (UA) AUTO NEGATIVE (NEGATIVE); KETONE, URINE AUTO 1+ mg/dL (NEGATIVE); LEUKOCYTE ESTERASE, URINE AUTO TRACE (NEGATIVE); NITRITE, URINE AUTO NEGATIVE (NEGATIVE); PROTEIN, URINE AUTO NEGATIVE (NEGATIVE); RBC, URINE AUTO 3 /HPF (0-3); SPECIFIC GRAVITY URINE AUTO 1.012 (1.002-1.035); SQUAMOUS EPITHELIAL CELL UR AU 0 /HPF (0-6); UROBILINOGEN, URINE AUTO 0.2 mg/dL (0.0-2.0); WBC, URINE AUTO 12 /HPF (0-3)
[2025-03-17 22:45] VITALS: BP 160/68; TEMP 97.1; O2SAT 94
[2025-03-18] VITALS (14 sets, daily range): BP systolic 135–168; BP diastolic 63–74; TEMP 97–97.7; O2SAT 89–95
[2025-03-18 06:16] LABS: PLATELET COUNT, AUTOMATED 307 10^3/uL (150-450)
[2025-03-18 06:39] LABS: CALCIUM LEVEL 9.6 MG/DL (8.3-10.6); CARBON DIOXIDE LEVEL 30.0 MMOL/L (20-31); CHLORIDE LEVEL 104.0 MMOL/L (98-107); CREATININE FOR GFR 0.83 MG/DL (0.55-1.30); GLOMERULAR FILTRATION RATE 74.4 (>39); POTASSIUM SERUM 3.6 MMOL/L (3.5-5.1); SODIUM LEVEL 147.0 MMOL/L (136-145)
[2025-03-18] MEDS: OLANZapine 5 MG TAB PO SCH (10:41)
[2025-03-18] MEDS: NYSTATIN 100,000 UNITS/GM TOPICAL PWD 15 GM TOP SCH (11:42)
[2025-03-19] VITALS (14 sets, daily range): BP systolic 127–142; BP diastolic 61–78; TEMP 97–98.3; O2SAT 89–97
[2025-03-19] MEDS: OLANZapine INTRAMUSCULAR 10MG VIAL IM STA (04:04)
[2025-03-19 05:38] LABS: ABG BASE EXCESS 3.6 (-2.0-2.0); ABG HCO3 27.7 MMOL/L (22.0-26.0); ABG O2 SATURATION 95.3 % (95.0-99.0); ABG PARTIAL PRESSURE CO2 39.7 mmHg (35.0-45.0); ABG PARTIAL PRESSURE O2 79.5 mmHg (75.0-100.0); ABG STANDARD HCO3 27.7 MMOL/L. (22.0-26.0); ABG TOTAL CO2 28.9 MMOL/L (23.0-31.0); ABG pH (ARTERIAL) 7.461 UNITS (7.350-7.450)
[2025-03-19 07:45] LABS: BASO # 0.1 10^3/uL (0.0-0.2); BASO % 0.5 % (0.0-1.0); EOS # 0.4 10^3/uL (0.0-0.5); EOS % 2.5 % (0.0-3.0); LYMPH # 1.7 10^3/uL (1.5-5.0); LYMPH % 11.6 % (24.0-44.0); MONO # 1.2 10^3/uL (0.0-0.8); MONO % 8.1 % (2.0-8.0); NEUTROPHILS # 11.5 10^3/uL (1.5-8.5); NEUTROPHILS % 76.7 % (36.0-66.0); PLATELET COUNT, AUTOMATED 334 10^3/uL (150-450)
[2025-03-19 08:19] LABS: CALCIUM LEVEL 9.6 MG/DL (8.3-10.6); CARBON DIOXIDE LEVEL 29.0 MMOL/L (20-31); CHLORIDE LEVEL 101.0 MMOL/L (98-107); CREATININE FOR GFR 0.93 MG/DL (0.55-1.30); GLOMERULAR FILTRATION RATE 64.9 (>39); POTASSIUM SERUM 3.7 MMOL/L (3.5-5.1); SODIUM LEVEL 144.0 MMOL/L (136-145)
[2025-03-19] MEDS: MEROPENEM 1 GM in IV 1 EA IV SCH (12:03)
[2025-03-19] MEDS: LIDOCAINE 5% PATCH TD ONE (17:49)
[2025-03-19] MEDS: GABAPENTIN 100 MG CAP PO SCH (20:51)
[2025-03-20] VITALS (24 sets, daily range): BP systolic 115–150; BP diastolic 59–72; TEMP 97.1–97.9; O2SAT 92–97
[2025-03-20 06:35] LABS: CALCIUM LEVEL 9.3 MG/DL (8.3-10.6); CARBON DIOXIDE LEVEL 28.0 MMOL/L (20-31); CHLORIDE LEVEL 102.0 MMOL/L (98-107); CREATININE FOR GFR 1.09 MG/DL (0.55-1.30); GLOMERULAR FILTRATION RATE 53.6 (>39); POTASSIUM SERUM 3.7 MMOL/L (3.5-5.1); SODIUM LEVEL 143.0 MMOL/L (136-145)
[2025-03-20] MEDS: LIDOCAINE 5% PATCH TD SCH (08:58)
[2025-03-21] VITALS (22 sets, daily range): BP systolic 118–145; BP diastolic 58–71; TEMP 97–98.2; O2SAT 92–98
[2025-03-21 05:33] LABS: BASO # 0.1 10^3/uL (0.0-0.2); BASO % 0.6 % (0.0-1.0); EOS # 0.8 10^3/uL (0.0-0.5); EOS % 4.2 % (0.0-3.0); LYMPH # 2.3 10^3/uL (1.5-5.0); LYMPH % 12.7 % (24.0-44.0); MONO # 1.4 10^3/uL (0.0-0.8); MONO % 7.9 % (2.0-8.0); NEUTROPHILS # 13.2 10^3/uL (1.5-8.5); NEUTROPHILS % 73.3 % (36.0-66.0); PLATELET COUNT, AUTOMATED 321 10^3/uL (150-450)
[2025-03-21 05:59] LABS: CALCIUM LEVEL 9.3 MG/DL (8.3-10.6); CARBON DIOXIDE LEVEL 28.0 MMOL/L (20-31); CHLORIDE LEVEL 101.0 MMOL/L (98-107); CREATININE FOR GFR 1.15 MG/DL (0.55-1.30); GLOMERULAR FILTRATION RATE 50.3 (>39); MAGNESIUM LEVEL 2.1 MG/DL (1.8-2.4); POTASSIUM SERUM 3.7 MMOL/L (3.5-5.1); SODIUM LEVEL 141.0 MMOL/L (136-145)
[2025-03-21 08:07] LABS: C REACTIVE PROTEIN QUANTITATIV 1.18 MG/DL (<1.0)
[2025-03-22] VITALS (17 sets, daily range): BP systolic 134–135; BP diastolic 61–63; TEMP 97.2; O2SAT 95–98
[2025-03-22 06:12] LABS: BASO # 0.1 10^3/uL (0.0-0.2); BASO % 0.5 % (0.0-1.0); EOS # 0.6 10^3/uL (0.0-0.5); EOS % 3.8 % (0.0-3.0); LYMPH # 2.3 10^3/uL (1.5-5.0); LYMPH % 14.2 % (24.0-44.0); MONO # 1.5 10^3/uL (0.0-0.8); MONO % 9.5 % (2.0-8.0); NEUTROPHILS # 11.4 10^3/uL (1.5-8.5); NEUTROPHILS % 70.3 % (36.0-66.0); PLATELET COUNT, AUTOMATED 292 10^3/uL (150-450)
[2025-03-22] MEDS ORDERED: GABA-284 PO (12:27)
[2025-03-22] MEDS ORDERED: OXYC10TA12 PO (12:27)
== END 2025-03-22 13:53 | disposition home health service (06) | DRG 191 ==
LOC: M ED 13:08 → M ED INP 17:31 → M PCU 03-17 22:34
PROVIDERS: ADMIT Student in an Organized Health Care Education/Training Program; ATTEND Student in an Organized Health Care Education/Training Program
DX: J44.1 Chronic obstructive pulmonary disease with (acute) exacerbation (principal); J96.12 Chronic respiratory failure with hypercapnia; E66.2 Morbid (severe) obesity with alveolar hypoventilation; J96.11 Chronic respiratory failure with hypoxia; I50.32 Chronic diastolic (congestive) heart failure; E87.20 Acidosis, unspecified; F11.20 Opioid dependence, uncomplicated; M46.25 Osteomyelitis of vertebra, thoracolumbar region; Z68.41 Body mass index [BMI] 40.0-44.9, adult; R53.1 Weakness; N18.30 Chronic kidney disease, stage 3 unspecified; I27.23 Pulmonary hypertension due to lung diseases and hypoxia; E11.42 Type 2 diabetes mellitus with diabetic polyneuropathy; L89.151 Pressure ulcer of sacral region, stage 1; E11.22 Type 2 diabetes mellitus with diabetic chronic kidney disease; D50.9 Iron deficiency anemia, unspecified; G89.29 Other chronic pain; K21.9 Gastro-esophageal reflux disease without esophagitis; E78.5 Hyperlipidemia, unspecified; F39 Unspecified mood [affective] disorder; Z74.01 Bed confinement status; Z86.711 Personal history of pulmonary embolism; Z99.81 Dependence on supplemental oxygen; Z79.01 Long term (current) use of anticoagulants; Z79.84 Long term (current) use of oral hypoglycemic drugs; Z79.899 Other long term (current) drug therapy; Z90.2 Acquired absence of lung [part of]; Z85.118 Personal history of other malignant neoplasm of bronchus and lung; Z90.49 Acquired absence of other specified parts of digestive tract; Z88.8 Allergy status to other drugs, medicaments and biological substances; Z87.891 Personal history of nicotine dependence

== ENCOUNTER 2025-03-24 21:28 | Inpatient (IN) | payer MEDICARE, BC ==
[~2025-03-24] VITALS: Ht 154.9 cm; Wt 120.5 kg
[~2025-03-24 21:28] MED LIST changes: +D-50CAP PO; +MUCI600T31 PO; +THERTAB52 PO; +ZINCLOZ9 PO
[2025-03-25] MEDS: METHOCARBAMOL 1,000 MG/10 ML VIAL IV ONE (04:18)
[2025-03-25 04:25] LABS: BASO # 0.1 10^3/uL (0.0-0.2); BASO % 0.4 % (0.0-1.0); EOS # 0.6 10^3/uL (0.0-0.5); EOS % 4.1 % (0.0-3.0); LYMPH # 1.9 10^3/uL (1.5-5.0); LYMPH % 14.0 % (24.0-44.0); MONO # 1.1 10^3/uL (0.0-0.8); MONO % 7.8 % (2.0-8.0); NEUTROPHILS # 9.8 10^3/uL (1.5-8.5); NEUTROPHILS % 72.7 % (36.0-66.0); PLATELET COUNT, AUTOMATED 288 10^3/uL (150-450)
[2025-03-25 04:51] LABS: C REACTIVE PROTEIN QUANTITATIV 5.2 MG/DL (<1.0); CALCIUM LEVEL 10.1 MG/DL (8.3-10.6); CARBON DIOXIDE LEVEL 28.0 MMOL/L (20-31); CHLORIDE LEVEL 101.0 MMOL/L (98-107); CPK CREATINE PHOSPHOKINASE 1020.0 U/L (34-145); CREATININE FOR GFR 1.34 MG/DL (0.55-1.30); GLOMERULAR FILTRATION RATE 41.9 (>39); POTASSIUM SERUM 4.0 MMOL/L (3.5-5.1); SODIUM LEVEL 142.0 MMOL/L (136-145)
[2025-03-25] MEDS: GABAPENTIN 100 MG CAP PO ONE (11:11)
[2025-03-25] MEDS ORDERED: GABA-284 PO (11:38)
[2025-03-25] MEDS ORDERED: HOME MED LIST COMPLETE! XX SCH (11:40)
[2025-03-25] MEDS ORDERED: PROHANCE 279.3MG/ML 5ML VIAL As Ordered ONE (12:43)
[2025-03-25] MEDS ORDERED: PROHANCE 279.3MG/ML 15ML VIAL As Ordered ONE (12:43)
[2025-03-25] MEDS ORDERED: ONDANSETRON 4MG TAB PO PRN (16:05)
[2025-03-25] MEDS ORDERED: SENNA 8.6 MG TAB PO PRN (16:05)
[2025-03-25] MEDS ORDERED: SILVER SULFADIAZINE 1% CR 50 GM JAR TOP PRN (16:05)
[2025-03-25] MEDS ORDERED: guaiFENesin ER TABLET 600 MG TAB PO PRN (16:05)
[2025-03-25] MEDS ORDERED: DOCUSATE SODIUM 100 MG CAPSULE PO PRN (16:05)
[2025-03-25] MEDS: NS (Normal Saline) 0.9% 1,000 ML IV SCH (16:41)
[2025-03-25] MEDS ORDERED: TORSEMIDE 20 MG TAB PO SCH (17:00)
[2025-03-25] MEDS: CEFDINIR 300 MG CAP PO SCH (17:37)
[2025-03-25] MEDS: LIDOCAINE 5% PATCH TD SCH (17:37)
[2025-03-25] MEDS: ADVAIR HFA 115/21 MCG INHALER INH SCH (20:22)
[2025-03-25] MEDS: ALBUTEROL 90 MCG/ACT 8 GM HFA INHALER INH PRN (20:23)
[2025-03-25] MEDS: LATANOPROST 0.005% OPHTH SOLN 2.5 ML OU SCH (21:19)
[2025-03-25] MEDS: APIXABAN 5 MG TAB PO SCH (21:20)
[2025-03-25] MEDS: ACETAMINOPHEN 325 MG TAB PO SCH (21:20)
[2025-03-25] MEDS: MAGNESIUM OXIDE 400 MG TAB PO SCH (21:20)
[2025-03-25] MEDS: ASCORBIC ACID 500 MG TAB PO SCH (21:20)
[2025-03-25] MEDS: OLANZapine 5 MG TAB PO SCH (21:20)
[2025-03-25] MEDS: METHENAMINE HIPPURATE 1 GM TABLET PO SCH (21:23)
[2025-03-26] MEDS: GABAPENTIN 400 MG CAP PO SCH (08:30)
[2025-03-26] MEDS: MIRALAX *UNIT DOSE* 17 GM PACKET PO SCH (08:30)
[2025-03-26] MEDS: FERROUS SULFATE 325 MG TAB PO SCH (08:30)
[2025-03-26 08:31] VITALS: BP 140/65
[2025-03-26] MEDS: POTASSIUM CHLORIDE 10MEQ SR TABLET PO SCH (08:31)
[2025-03-26] MEDS: SPIRONOLACTONE 50 MG TAB PO SCH (08:31)
[2025-03-26] MEDS: OYSTER SHELL CALCIUM 500 MG TAB PO SCH (08:31)
[2025-03-26] MEDS: PANTOPRAZOLE 40MG TAB PO SCH (08:31)
[2025-03-26] MEDS ORDERED: ATORVASTATIN 20 MG TAB PO SCH (09:00)
[2025-03-26 09:28] LABS: PLATELET COUNT, AUTOMATED 247 10^3/uL (150-450)
[2025-03-26 09:52] LABS: CPK CREATINE PHOSPHOKINASE 862.0 U/L (34-145)
[2025-03-26 09:57] LABS: CALCIUM LEVEL 9.0 MG/DL (8.3-10.6); CARBON DIOXIDE LEVEL 26.0 MMOL/L (20-31); CHLORIDE LEVEL 108.0 MMOL/L (98-107); CREATININE FOR GFR 0.84 MG/DL (0.55-1.30); GLOMERULAR FILTRATION RATE 73.3 (>39); POTASSIUM SERUM 4.2 MMOL/L (3.5-5.1); SODIUM LEVEL 143.0 MMOL/L (136-145)
[2025-03-26] MEDS ORDERED: ACET32TAB PO (14:45)
[2025-03-26] MEDS ORDERED: METH-1164 PO (14:45)
[2025-03-26 21:02] VITALS: BP 165/74; TEMP 98.1; O2SAT 98
== END 2025-03-26 21:27 | disposition home or self-care (01) | DRG 552 ==
LOC: M ED 21:28 → M ED INP 03-26 08:11
PROVIDERS: ADMIT Student in an Organized Health Care Education/Training Program; ATTEND Student in an Organized Health Care Education/Training Program
DX: M54.50 Low back pain, unspecified (principal); Z68.43 Body mass index [BMI] 50.0-59.9, adult; E66.2 Morbid (severe) obesity with alveolar hypoventilation; J96.10 Chronic respiratory failure, unspecified whether with hypoxia or hypercapnia; I50.32 Chronic diastolic (congestive) heart failure; M62.82 Rhabdomyolysis; R53.1 Weakness; Z99.81 Dependence on supplemental oxygen; Z85.118 Personal history of other malignant neoplasm of bronchus and lung; Z90.2 Acquired absence of lung [part of]; Z99.3 Dependence on wheelchair; Z79.01 Long term (current) use of anticoagulants; Z79.84 Long term (current) use of oral hypoglycemic drugs; Z79.899 Other long term (current) drug therapy; Z88.8 Allergy status to other drugs, medicaments and biological substances

== ENCOUNTER → 2025-05-14 | Outpatient (CLI) | payer MEDICARE, BC ==
[~2025-05-14] MED LIST changes: +ACET32TAB PO; -BACTDSTA PO; +SULF-8 PO
== END ==
LOC: M PAL 13:38
PROVIDERS: ATTEND Physician Assistant
DX: Z51.5 Encounter for palliative care (principal); J96.10 Chronic respiratory failure, unspecified whether with hypoxia or hypercapnia; Z99.81 Dependence on supplemental oxygen; I50.30 Unspecified diastolic (congestive) heart failure; G47.33 Obstructive sleep apnea (adult) (pediatric); N18.1 Chronic kidney disease, stage 1; Z79.891 Long term (current) use of opiate analgesic; Z88.6 Allergy status to analgesic agent; Z79.899 Other long term (current) drug therapy; Z79.52 Long term (current) use of systemic steroids